=== PATIENT | female | born 1945 | race Caucasian/White ===

== ENCOUNTER 2017-08-20 13:59 | Emergency (ER) | payer OTHER ==
--- NOTE | 2017-08-20 15:32 | EKG ---
Test Date: 2017-08-20 Test Time: 15:22:04 Inside Sales Representative: INDIO MEASUREMENT RESULTS: Intervals: Rate: 67 [place]: 172 QRSD: 76 QT: 418 QTc: 441 [place]: P: 86 [place]: 172 QRS: 33 T: 48 INTERPRETIVE STATEMENTS: Normal sinus rhythm Normal ECG Compared to ECG 04/30/2017 07:00:58 Ventricular premature complex(es) no longer present Electronically Signed On 08-20-17 15:31:05 CDT by Ran Torres
[2017-08-20] MEDS ORDERED: ONDANSETRON 4 MG/2 ML VIAL ONE (16:06)
[2017-08-20 16:32] LABS: Urine Blood NEGATIVE (NEG); Urine Glucose NEGATIVE (NEG); Urine Protein NEGATIVE (NEG); Urine pH 5.5 (5.0-7.0)
[2017-08-20] MEDS ORDERED: D50W 25 GM/50 ML SYRINGE IV ONE (16:40)
[2017-08-20 16:58] LABS: Absolute Lymphocytes (CBC) 4.1 K/uL (0.7-4.9); Absolute Monocytes 0.7 K/uL (0.1-1.3); Absolute Neutrophil 5.9 K/uL (1.8-8.0); Basophils % 0.9 % (0-1.3); Eosinophils % 1.2 % (0-4.4); Hematocrit 40.6 % (36.0-45.0); Lymphocytes % 37.6 % (15.3-44.8); MCH 27.5 pg (27.0-35.0); MCV 85.4 fL (80-100); MPV 8.9 fL (7.6-11.3); Monocytes % 6.1 % (3.3-12.3); RBC Red Blood Cell Count 4.76 M/uL (3.86-4.86)
[2017-08-20 17:06] LABS: AST/SGOT 18 U/L (15-37); BUN Blood Urea Nitrogen 11 mg/dL (7-18); Bicarbonate 30 mmol/L (21-32); Glucose Level 76 mg/dL (74-106); Potassium 3.9 mmol/L (3.5-5.1); Sodium Level 141 mmol/L (136-145)
[2017-08-20 17:07] LABS: Urine Bacteria >50 /HPF (<20); Urine Culture Reflex Order NOT NEEDED; Urine RBC <5 /HPF (NONE SEEN)
[2017-08-20 17:07] LABS: ALT/SGPT 26 U/L (12-78); Albumin 4.3 g/dL (3.4-5.0); Alkaline Phosphatase 134 U/L (45-117); Bilirubin Direct < 0.1 mg/dL (0-0.2); Bilirubin Total 0.4 mg/dL (0.2-1.0); Lipase 158 U/L (73-393); Protein, Total 8.5 g/dL (6.4-8.2)
[2017-08-20] MEDS ORDERED: HYDROCODONE/APAP 10/325 TAB ONE (17:57)
[2017-08-20] MEDS ORDERED: PHENAZOPYRIDINE 100MG TAB PO ONE (17:57)
[2017-08-20] MEDS ORDERED: CEFTRIAXONE/SWI 1gm 1 GM/10 ML SYR ONE (17:57)
--- NOTE | 2017-08-20 18:35 | RAD REPORT ---
EXAM DESCRIPTION: CT - Abdomen Pelvis Wo Contrast - 08/20/2017 6:05 pm CLINICAL HISTORY: Abdominal pain with vomiting for several weeks. Dysuria COMPARISON: 2014 TECHNIQUE: Computed axial tomography of the abdomen and pelvis was obtained. IV was not requested. O ral contrast was given. Coronal reconstructions performed. All CT scans are performed using dose optimization technique as appropriate and may include automated exposure control or mA/KV adjustment according to patient size. FINDINGS: The evaluation of solid organs and vessels is limited secondary to the lack of contrast a dministration. Small hepatic cysts are unchanged. Spleen, pancreas, adrenals and kidneys appear grossly normal. A small hiatal hernia is present. A hysterectomy has been performed. There is no evidence of diverticulitis. Old right pubic bone fracture is present IMPRESSION: No acute abnormality is displayed.
--- NOTE | 2017-08-20 18:38 | ER ---
Nurse's Notes [facility] Name: Kiley Ortega Age: 72 yrs Sex: Female : 1945 Arrival Date: 08/20/2017 Time: 14:03 Bed 7 Private MD: Shivani Anguiano F Diagnosis: Urinary tract infection, site not specified Presentation: 08/20 14:14 Presenting complaint: Patient states: my bladder is hurting for couple of weeks, hj reports fever and chills; reports nausea and vomiting; pain is 10/10; reports burning urination;. Transition of care: patient was not received from another setting of care. Onset of symptoms was August 20, 2017. Risk Assessment: Do you want to hurt yourself or someone else? Patient reports no desire to harm self or others. Initial Sepsis Screen: Does the patient meet any 2 criteria? No. Patient's initial sepsis screen is negative. Does the patient have a suspected source of infection? No. Patient's initial sepsis screen is negative. Care prior to arrival: None. 14:14 Method Of Arrival: Ambulatory 14:14 Acuity: SHELLEY 3 hj Triage Assessment: 14:18 General: Appears in no apparent distress. uncomfortable, Behavior is calm, cooperative, hj appropriate for age. Pain: Complains of pain in groin and suprapubic area. GI: Reports nausea, vomiting. Historical: - Allergies: 14:17 Iodinated Contrast Media - IV Dye; hj 14:17 Tegretol; hj - Home Meds: 14:17 amlodipine 5 mg tab 1 tab once daily for Hypertension [Active]; aspirin 81 mg Oral TbEC hj 1 tab once daily [Active]; fluxetine 40 mg once daily [Active]; Insulin: Humalog Sub-Q [Active]; losartan 100 mg Oral tab 1 tab once daily for Hypertension [Active]; Lyrica 300mg Oral 1 cap 2 times per day for Diabetic Peripheral Neuropathy [Active]; metformin 1,000 mg Oral tab 1 tab 2 times per day for Type 2 Diabetes Mellitus [Active]; omeprazole 40 mg Oral cpDR 1 cap once daily for Gastroesophageal reflux [Active]; Glimepiride Oral [Active]; Januvia oral oral [Active]; - PMHx: 14:17 COPD; Diabetes - NIDDM; Hypertension; TIA; hj - PSHx: 14:17 Hysterectomy; Lumpectomy; hj - Immunization history:: Adult Immunizations up to date. - Social history:: Smoking status: Patient/guardian denies using tobacco, Patient/guardian denies using alcohol. - Ebola Screening: : Patient negative for fever greater than or equal to 101.5 degrees Fahrenheit, and additional compatible Ebola Virus Disease symptoms Patient denies exposure to infectious person Patient denies travel to an Ebola-affected area in the 21 days before illness onset. - Family history:: not pertinent. - Hospitalizations: : No recent hospitalization is reported. Screenin:18 Abuse screen: Denies threats or abuse. Denies injuries from another. Nutritional hj screening: No deficits noted. Tuberculosis screening: No symptoms or risk factors identified. Fall Risk None identified. Assessment: 14:18 GI: Bowel sounds present X 4 quads. Abd is soft and non tender. hj 15:00 General: Appears uncomfortable, Behavior is calm, cooperative. Pain: Complains of pain aa5 in suprapubic area Pain does not radiate. Pain currently is 10 out of 10 on a pain scale. Quality of pain is described as pressure, sharp, Pain began 2 weeks ago Is continuous. Neuro: Level of Consciousness is awake, alert, obeys commands, Oriented to person, place, time, situation. Cardiovascular: Heart tones S1 S2 present Rhythm is regular. Respiratory: Airway is patent Respiratory effort is even, unlabored, Respiratory pattern is regular, symmetrical. GI: Abdomen is round non-distended, Bowel sounds present X 4 quads. Abd is soft X 4 quads Abdomen is tender to palpation in suprapubic area Reports nausea, vomiting, since yesterday Patient currently denies diarrhea. : Reports burning with urination, since 2 weeks ago. EENT: No signs and/or symptoms were reported regarding the EENT system. Derm: Skin is pink, warm \T\ dry. Musculoskeletal: Range of motion: intact in all extremities. 16:30 Reassessment: Pt completed CT oral contrast . aa5 16:30 Reassessment: Patient and/or family updated on plan of care and expected duration. Pain aa5 level reassessed. Patient is alert, oriented x 3, equal unlabored respirations, skin warm/dry/pink. Pain: Pain currently is 10 out of 10 on a pain scale. 17:56 Reassessment: Patient and/or family updated on plan of care and expected duration. Pain aa5 level reassessed. Patient is alert, oriented x 3, equal unlabored respirations, skin warm/dry/pink. Reassessment: Pt to CT scan via stretcher . Pain: Pain currently is 10 out of 10 on a pain scale. 18:57 Reassessment: Patient is alert, oriented x 3, equal unlabored respirations, skin aa5 warm/dry/pink. Pain: Pain currently is 8 out of 10 on a pain scale. 19:11 Reassessment: Patient appears in no apparent distress at this time. Patient and/or tl2 family updated on plan of care and expected duration. Pain level reassessed. Patient is alert, oriented x 3, equal unlabored respirations, skin warm/dry/pink. Pt observed after shot time. Pt verbalized understanding of discharge instructions, need for follow up and prescription usage. Vital Signs: 14:18 BP 142 / 69; Pulse 78; Resp 18; Temp 97.7(O); Pulse Ox 95% on R/A; Weight 84.82 kg; hj Height 5 ft. 2 in. (157.48 cm); Pain 10/10; 16:00 BP 159 / 78; Pulse 72; Resp 18 S; Pulse Ox 99% on R/A; aa5 17:45 BP 145 / 64; Pulse 65; Resp 16 S; Pulse Ox 97% on R/A; aa5 18:50 BP 155 / 65; Pulse 66; Resp 16 S; Pulse Ox 98% on R/A; aa5 19:11 BP 164 / 83; Pulse 82; Resp 18; Pulse Ox 94% on R/A; tl2 14:18 Body Mass Index 34.20 (84.82 kg, 157.48 cm) ED Course: 14:03 Patient arrived in ED. jb7 14:03 Shivani Anguiano MD is Private Physician. jb7 14:16 Triage completed. hj 14:18 Arm band placed on left wrist. hj 14:18 Patient has correct armband on for positive identification. Bed in low position. Call light in reach. Side rails up X 1. Adult w/ patient. 14:55 Isael Mondragon MD is Attending Physician. rn 14:59 Hortensia Diaz RN is Primary Nurse. aa5 15:15 Missed attempt(s): 22 gauge in left forearm. Bleeding controlled, band aid applied, aa5 catheter tip intact. 15:17 Missed attempt(s): 20 gauge in left forearm. Bleeding controlled, band aid applied, aa5 catheter tip intact. 15:50 EKG done, by technical operations specialist. reviewed by Isael Mondragon MD. sm3 16:11 Missed attempt(s): 22 gauge in right forearm. Bleeding controlled, band aid applied, ss catheter tip intact. 16:30 Initial lab(s) drawn, by ED staff, sent to lab. Inserted saline lock: 20 gauge in right aa5 antecubital area, using aseptic technique. IV inserted by . 17:[address] via stretcher. vm2 18:05 Abdomen In Process Unspecified. EDMS 18:05 CT completed. Patient tolerated procedure well. Patient moved back from CT. vr 18:37 Shivani Anguiano MD is Referral Physician. rn 18:50 IV discontinued, intact, bleeding controlled, Pressure dressing applied, Swelling noted aa5 to site, pt c/o pain to site. 19:00 Report given to George Farley, YUNIOR and Cami Ruiz RN. aa5 19:11 No provider procedures requiring assistance completed. tl2 Administered Medications: 16:30 Drug: D50W 50 ml Route: IVP; Site: right antecubital; aa5 17:56 Follow up: Response: No adverse reaction aa5 16:35 Drug: Zofran 4 mg Route: IVP; Site: right antecubital; aa5 16:45 Follow up: Response: No adverse reaction; Nausea is decreased aa5 17:56 Drug: Pyridium 100 mg Route: PO; aa5 18:57 Follow up: Response: No adverse reaction aa5 17:56 Drug: Adair 10 mg-325 mg 1 tabs Route: PO; aa5 18:57 Follow up: Response: No adverse reaction aa5 18:57 Drug: Rocephin (cefTRIAXone) 1 grams Route: IM; Site: right gluteus; aa5 19:13 Follow up: Response: No adverse reaction tl2 18:57 Drug: Zofran 4 mg Route: PO; aa5 19:13 Follow up: Response: No adverse reaction tl2 18:58 Not Given (Changed route due to IV infiltration): Rocephin - (cefTRIAXone) 1 grams IVPB aa5 once over 30 mins; (mix in 50 mL NS) Point of Care Testing: Blood Glucose: 16:10 Blood Glucose: 66 mg/dL; ss 17:41 Blood Glucose: 172 mg/dL; jb1 Ranges: Outcome: 18:37 Discharge ordered by . rn 19:11 Discharged to home via wheelchair, with family. tl2 19:11 Condition: stable 19:11 Discharge instructions given to patient, family, Instructed on discharge instructions, follow up and referral plans. medication usage, Demonstrated understanding of instructions, follow-up care, medications, Prescriptions given X 3. 19:14 Patient left the ED. tl2 Addendum: 08/24/2017 08:42 Addendum: Culture Results: Positive urine culture. No further action required. Bacteria s s sensitive to prescribed antibiotic. Signatures: Dispatcher [employer] EDMS Alvarez Ruiz jb1 Isael Mondragon MD MD rn Calderon, YUNIOR Bazan RN aa5 Neena Collins RN RN ss Davis, Victoria Pk Carrera RN RN hj Knox, Taylor, RN RN tl2 Sang Huerta jb7 Sylvia Graham [facility] Rosi Saez 3 Corrections: (The following items were deleted from the chart) 08/20 14:21 14:18 Pulse 78bpm; Resp 18bpm; Pulse Ox 95% RA; Temp 97.7F Oral; 84.82 kg; Height 5 ft. hj 2 in.; BMI: 34.2; Pain 10/10; hj
--- NOTE | 2017-08-20 18:38 | EDPHYS ---
Physician Documentation [facility] Name: Kiley Ortega Age: 72 yrs Sex: Female : 1945 Arrival Date: 08/20/2017 Time: 14:03 Bed 7 Private MD: Shivani Anguiano F ED Physician Isael Mondragon HPI: 08/20 16:07 This 72 yrs old Female presents to ER via Ambulatory with complaints of rn Abdominal Pain. 16:07 The patient presents with abdominal pain in the lower abdomen. Onset: The rn symptoms/episode began/occurred 2 week(s) ago. The symptoms do not radiate. Associated signs and symptoms: Pertinent positives: dysuria, fever, nausea. The symptoms are described as achy. Modifying factors: The symptoms are alleviated by nothing, the symptoms are aggravated by nothing. Severity of pain: At its worst the pain was moderate in the emergency department the pain is unchanged. The patient has not experienced similar symptoms in the past. The patient has been recently seen by a physician:. Reports lower abd pain with dysuria, fever, chills, seen by pcp but pain not addressed, feels worse. . Historical: - Allergies: 14:17 Iodinated Contrast Media - IV Dye; hj 14:17 Tegretol; hj - Home Meds: 14:17 amlodipine 5 mg tab 1 tab once daily for Hypertension [Active]; aspirin 81 mg Oral TbEC hj 1 tab once daily [Active]; fluxetine 40 mg once daily [Active]; Insulin: Humalog Sub-Q [Active]; losartan 100 mg Oral tab 1 tab once daily for Hypertension [Active]; Lyrica 300mg Oral 1 cap 2 times per day for Diabetic Peripheral Neuropathy [Active]; metformin 1,000 mg Oral tab 1 tab 2 times per day for Type 2 Diabetes Mellitus [Active]; omeprazole 40 mg Oral cpDR 1 cap once daily for Gastroesophageal reflux [Active]; Glimepiride Oral [Active]; Januvia oral oral [Active]; - PMHx: 14:17 COPD; Diabetes - NIDDM; Hypertension; TIA; hj - PSHx: 14:17 Hysterectomy; Lumpectomy; hj - Immunization history:: Adult Immunizations up to date. - Social history:: Smoking status: Patient/guardian denies using tobacco, Patient/guardian denies using alcohol. - Ebola Screening: : Patient negative for fever greater than or equal to 101.5 degrees Fahrenheit, and additional compatible Ebola Virus Disease symptoms Patient denies exposure to infectious person Patient denies travel to an Ebola-affected area in the 21 days before illness onset. - Family history:: not pertinent. - Hospitalizations: : No recent hospitalization is reported. 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 Head/Face: Normocephalic, atraumatic. Eyes: Pupils equal round and reactive to light, extra-ocular motions intact. Lids and lashes normal. Conjunctiva and sclera are non-icteric and not injected. Cornea within normal limits. Periorbital areas with no swelling, redness, or edema. Cardiovascular: Regular rate and rhythm with a normal S1 and S2. No gallops, murmurs, or rubs. Normal PMI, no JVD. No pulse deficits. Respiratory: Lungs have equal breath sounds bilaterally, clear to auscultation and percussion. No rales, rhonchi or wheezes noted. No increased work of breathing, no retractions or nasal flaring. Abdomen/GI: soft, mild suprapubic tenderness, no rebound/guarding, no masses MS/ Extremity: Pulses equal, no cyanosis. Neurovascular intact. Full, normal range of motion. Equal circumference. Neuro: Awake and alert, non-focal exam Vital Signs: 14:18 BP 142 / 69; Pulse 78; Resp 18; Temp 97.7(O); Pulse Ox 95% on R/A; Weight 84.82 kg; Height 5 ft. 2 in. (157.48 cm); Pain 10/10; 16:00 BP 159 / 78; Pulse 72; Resp 18 S; Pulse Ox 99% on R/A; aa5 17:45 BP 145 / 64; Pulse 65; Resp 16 S; Pulse Ox 97% on R/A; aa5 18:50 BP 155 / 65; Pulse 66; Resp 16 S; Pulse Ox 98% on R/A; aa5 19:11 BP 164 / 83; Pulse 82; Resp 18; Pulse Ox 94% on R/A; tl2 14:18 Body Mass Index 34.20 (84.82 kg, 157.48 cm) MDM: 14:55 Patient medically screened. rn 18:36 Differential diagnosis: non-specific abd pain, Ureterolithiasis, urinary tract rn infection. Data reviewed: vital signs, nurses notes, lab test result(s), radiologic studies, CT scan, and as a result, I will discharge patient. Counseling: I had a detailed discussion with the patient and/or guardian regarding: the historical points, exam findings, and any diagnostic results supporting the discharge/admit diagnosis, lab results, radiology results, the need for outpatient follow up, to return to the emergency department if symptoms worsen or persist or if there are any questions or concerns that arise at home. Response to treatment: the patient's symptoms have mildly improved after treatment, and as a result, I will discharge patient. Special discussion: I discussed with the patient/guardian in detail that at this point there is no indication for admission to the hospital. It is understood, however, that if the symptoms persist or worsen the patient needs to return immediately for re-evaluation. 08/20 14:28 Order name: Urine Microscopic Only; Complete Time: 17:18 hj 08/20 15:04 Order name: Basic Metabolic Panel; Complete Time: 17:18 rn 08/20 15:04 Order name: CBC with Diff; Complete Time: 17:18 rn 08/20 15:04 Order name: Hepatic Function; Complete Time: 17:18 rn 08/20 15:04 Order name: Lipase; Complete Time: 17:18 rn 08/20 15:04 Order name: Urine Culture rn 08/20 15:04 Order name: Procalcitonin; Complete Time: 17:18 rn 08/20 16:21 Order name: Abdomen ; Complete Time: 18:36 EDMS 08/20 16:24 Order name: Urine Dipstick--Ancillary (enter results); Complete Time: 16:57 ag 08/20 14:28 Order name: Urine Dipstick-Ancillary (obtain specimen); Complete Time: 16:42 hj 08/20 15:04 Order name: IV Saline Lock; Complete Time: 16:42 rn 08/20 15:04 Order name: Labs collected and sent; Complete Time: 16:42 rn 08/20 15:04 Order name: EKG; Complete Time: 15:06 rn 08/20 15:04 Order name: EKG - Nurse/Tech; Complete Time: 15:25 rn Administered Medications: 16:30 Drug: D50W 50 ml Route: IVP; Site: right antecubital; aa5 17:56 Follow up: Response: No adverse reaction aa5 16:35 Drug: Zofran 4 mg Route: IVP; Site: right antecubital; aa5 16:45 Follow up: Response: No adverse reaction; Nausea is decreased aa5 17:56 Drug: Pyridium 100 mg Route: PO; aa5 18:57 Follow up: Response: No adverse reaction aa5 17:56 Drug: [place] 10 mg-325 mg 1 tabs Route: PO; aa5 18:57 Follow up: Response: No adverse reaction aa5 18:57 Drug: Rocephin (cefTRIAXone) 1 grams Route: IM; Site: right gluteus; aa5 19:13 Follow up: Response: No adverse reaction tl2 18:57 Drug: Zofran 4 mg Route: PO; aa5 19:13 Follow up: Response: No adverse reaction tl2 18:58 Not Given (Changed route due to IV infiltration): Rocephin - (cefTRIAXone) 1 grams IVPB aa5 once over 30 mins; (mix in 50 mL NS) Point of Care Testing: Blood Glucose: 16:10 Blood Glucose: 66 mg/dL; ss 17:41 Blood Glucose: 172 mg/dL; jb1 Ranges: Critical Glucose Levels:Adult <50 mg/dl or >400 mg/dl <40 mg/dl or >180 mg/dl Disposition: 08/20/17 18:37 Discharged to Home. Impression: Urinary tract infection, site not specified. - Condition is Stable. - Discharge Instructions: Urinary Tract Infection. - Prescriptions for Pyridium 200 mg Oral Tablet - take 1 tablet by ORAL route every 8 hours for 3 days; 9 tablet. cefpodoxime 200 mg Oral Tablet - take 1 tablet by ORAL route every 12 hours with food; 20 tablet. Zofran ODT 4 mg Oral tablet,disintegrating - place 1 tablet by TRANSLINGUAL route every 8 hours As needed; 20 tablet. - Medication Reconciliation Form, Thank You Letter, Antibiotic Education, Prescription Opioid Use form. - Follow up: Shivani Anguiano MD; When: 2 - 3 days; Reason: Recheck today's complaints, Re-evaluation by your physician. - Problem is new. - Symptoms have improved. Signatures: Dispatcher [employer] [facility] Isael Mondragon MD MD rn Calderon, Audri, RN RN aa5 Pk Carrera RN RN Cami Ruiz, RN RN tl2 Corrections: (The following items were deleted from the chart) 16:21 15:06 Abdomen Pelvis W [id number] ordered. [facility] 19:14 18:37 08/20/2017 18:37 Discharged to Home. Impression: Urinary tract infection, site tl2 not specified. Condition is Stable. Forms are Medication Reconciliation Form, Thank You Letter, Antibiotic Education, Prescription Opioid Use. Follow up: Shivani Anguiano; When: 2 - 3 days; Reason: Recheck today's complaints, Re-evaluation by your physician. Problem is new. Symptoms have improved. rn
[2017-08-20] MEDS ORDERED: LIDOCAINE 1% MPF 5 ML VIAL ONE (18:53)
[2017-08-20] MEDS ORDERED: CEFTRIAXONE 1000 MG/VIAL ONE (18:53)
[2017-08-20] MEDS ORDERED: ONDANSETRON 4 MG (ODT) TAB ONE (18:54)
[2017-08-20 19:18] VITALS: TEMP 97.7
[2017-08-20 19:22] VITALS: BP 164/83; O2SAT 94
== END 2017-08-20 19:14 | disposition home or self-care (01) ==
LOC: ER 13:59
DX: N39.0 Urinary tract infection, site not specified (principal); I10 Essential (primary) hypertension; E11.9 Type 2 diabetes mellitus without complications; J44.9 Chronic obstructive pulmonary disease, unspecified; Z79.82 Long term (current) use of aspirin; Z79.4 Long term (current) use of insulin
CPT/HCPCS: 36415; 74176; 80048; 80076; 83690; 84145; 85025; 87086; 87088; 93005; J0696; J2405; 81003; 81015; 82962; 87077; 87186; 96372; 96374; 96375; 99284

== ENCOUNTER 2017-09-07 17:05 | Emergency (ER) | payer OTHER ==
[2017-09-07] MEDS ORDERED: ONDANSETRON 4 MG (ODT) TAB ONE (17:32)
[2017-09-07] MEDS ORDERED: TETANUS & DIPHTHERIA TOX,ADULT 0.5 ML VIAL ONE (17:37)
--- NOTE | 2017-09-07 18:15 | RAD REPORT ---
EXAM DESCRIPTION: CT - Head C Spine Cap Wo Con - 09/07/2017 5:56 pm CLINICAL HISTORY: Fall, head, neck, chest and abdomen pain COMPARISON: None. TECHNIQUE: Axial [address] head images were obtained. Axial [address] cervical spine images were obtain ed with sagittal and coronal reconstruction images reviewed. Axial 5 mm images of the chest, abdomen and pelvis were obtained. All CT scans are performed using dose optimization technique as appropriate and may include automated exposure control or mA/KV adjustment according to patient size. FINDINGS: No intracranial hemorrhage, mass or edema. No midline shift or abnormal fluid collection. Mastoid air cells and paranasal sinuses are clear. No skull fracture. Mild atrophy chronic ischemic change. Cervical bodies are normal in height. There is very minimal anterior subluxation C4 on C5 and C5 on C 6. C6-7 disc space narrowing. Uncovertebral joint and facet hypertrophic degenerative changes cause m ultilevel foraminal stenosis. Canal is borderline stenotic at C6-7. No fracture or acute bone finding . No prevertebral soft tissue thickening or paraspinal mass.Central canal detail is inherently limite d on CT imaging. CT chest shows no pneumothorax, pulmonary contusion or pleural fluid collection. No mediastinal hem atoma and the aorta and pulmonary arteries are unremarkable. No chest will mass or abnormal axillary finding. No displaced rib fracture or other significant bony finding. CT abdomen and pelvis show no injury to solid abdominal viscera. Gallbladder and biliary tree are unr emarkable. No bowel injury or significant finding. No free air, free fluid or abnormal stranding. No mass or bulky lymphadenopathy. A very small incidental umbilical hernia is present. No urinary bladd er abnormality. Old trauma and degenerative bony changes are present most pronounced in the lower lumbar spine. No co mpression fracture or acute bone process. IMPRESSION: No hemorrhage, edema or acute CT Head finding. Prominent cervical spine degenerative change with no acute finding. Central canal detail is inherentl y limited. No acute or traumatic injury to the chest. No acute or traumatic injury to the abdomen or pelvis.
--- NOTE | 2017-09-07 18:47 | RAD REPORT ---
EXAM DESCRIPTION: RAD - Hand Left 3 View - 09/07/2017 6:22 pm CLINICAL HISTORY: Fall, hand and wrist pain COMPARISON: None. FINDINGS: No fracture, dislocation or periosteal reaction noted. No acute or destructive bone proces s identifiable. Mild IP joint space narrowing and spurring. No erosive component. Mild degenerative c hange at the first carpal - metacarpal articulation. No air or foreign body. IMPRESSION: Degenerative change without fracture. No foreign body.
--- NOTE | 2017-09-07 18:50 | EDPHYS ---
Physician Documentation [facility] Name: Kiley Ortega Age: 72 yrs Sex: Female : 1945 Arrival Date: 09/07/2017 Time: 17:06 Bed 30 Private MD: Shivani Anguiano F ED Physician Vinh Gee HPI: 09/07 18:00 This 72 yrs old Female presents to ER via Wheelchair with complaints of Fall pm1 Injury. 18:00 Details of fall: The patient fell from an upright position, while walking. Onset: The pm1 symptoms/episode began/occurred just prior to arrival. Associated injuries: The patient sustained injury to the head, abrasion, contusion, left hand, pain, right wrist, abrasion, right and left lower ribs. 18:00 Patient was walking out her door and there is a small step down from the concrete in pm1 front of the door. Patient lost her balance when she stepped down and feel on her right side with her right arm tucked against her. Patient presenting with pain, contusion, and abrasion to right side of head, abrasion to right wrist and left hand pain. No LOC. No vomiting. Patient able to walk without any difficulty after falling. Historical: - Allergies: 17:14 Iodinated Contrast Media - IV Dye; aj 17:14 Tegretol; aj - Home Meds: 17:14 amlodipine 5 mg tab 1 tab once daily for Hypertension [Active]; aspirin 81 mg Oral TbEC aj 1 tab once daily [Active]; fluxetine 40 mg once daily [Active]; Glimepiride Oral [Active]; Insulin: Humalog Sub-Q [Active]; Januvia Oral [Active]; losartan 100 mg Oral tab 1 tab once daily for Hypertension [Active]; metformin 1,000 mg Oral tab 1 tab 2 times per day for Type 2 Diabetes Mellitus [Active]; Lyrica 300mg Oral 1 cap 2 times per day for Diabetic Peripheral Neuropathy [Active]; omeprazole 40 mg Oral cpDR 1 cap once daily for Gastroesophageal reflux [Active]; - PMHx: 17:14 COPD; Diabetes - NIDDM; Hypertension; TIA; aj - PSHx: 17:14 Hysterectomy; Lumpectomy; aj - Immunization history: Last tetanus immunization: unknown. - Social history:: Smoking status: Patient/guardian denies using tobacco. - Ebola Screening: : Patient negative for fever greater than or equal to 101.5 degrees Fahrenheit, and additional compatible Ebola Virus Disease symptoms Patient denies exposure to infectious person Patient denies travel to an Ebola-affected area in the 21 days before illness onset No symptoms or risks identified at this time. ROS: 18:00 Constitutional: Negative for fever, chills, and weight loss, Eyes: Negative for injury, pm1 pain, redness, and discharge, ENT: Negative for injury, pain, and discharge, Neck: Negative for injury, pain, and swelling, Cardiovascular: Negative for chest pain, palpitations, and edema, Respiratory: Negative for shortness of breath, cough, wheezing, and pleuritic chest pain, Abdomen/GI: Negative for abdominal pain, nausea, vomiting, diarrhea, and constipation, Back: Negative for injury and pain. 18:00 MS/extremity: Positive for pain, of the left hand. 18:00 Skin: Positive for abrasion(s), of the right wrist and right restorationism. 18:00 Neuro: Positive for headache, Negative for altered mental status, dizziness, gait disturbance, loss of consciousness, numbness, syncope, near syncope, tingling, weakness. Exam: 09/08 01:31 Constitutional: This is a well developed, well nourished patient who is awake, alert, pm1 and in no acute distress. Eyes: Pupils equal round and reactive to light, extra-ocular motions intact. Lids and lashes normal. Conjunctiva and sclera are non-icteric and not injected. Cornea within normal limits. Periorbital areas with no swelling, redness, or edema. ENT: Nares patent. No nasal discharge, no septal abnormalities noted. Tympanic membranes are normal and external auditory canals are clear. Oropharynx with no redness, swelling, or masses, exudates, or evidence of obstruction, uvula midline. Mucous membranes moist. Neck: Trachea midline, no thyromegaly or masses palpated, and no cervical lymphadenopathy. Supple, full range of motion without nuchal rigidity, or vertebral point tenderness. No Meningismus. Chest/axilla: Normal chest wall appearance and motion. Nontender with no deformity. No lesions are appreciated. Cardiovascular: Regular rate and rhythm with a normal S1 and S2. No gallops, murmurs, or rubs. Normal PMI, no JVD. No pulse deficits. Respiratory: Lungs have equal breath sounds bilaterally, clear to auscultation and percussion. No rales, rhonchi or wheezes noted. No increased work of breathing, no retractions or nasal flaring. Abdomen/GI: Soft, non-tender, with normal bowel sounds. No distension or tympany. No guarding or rebound. No evidence of tenderness throughout. Back: No spinal tenderness. No costovertebral tenderness. Full range of motion. Head/face: Exam is negative for guy signs, deformity, raccoon eyes, Noted is no obvious of injury or deformity except abrasion(s), that are mild, of the right restorationism, contusion, that is superficial, of the right restorationism. Musculoskeletal/extremity: Extremities: grossly normal except: noted in the medial aspect of left hand: tenderness, ROM: intact in all extremities, Circulation is intact in all extremities. Sensation intact. Skin: injury, abrasion(s), small abrasion noted, of the right wrist and right restorationism, laceration(s), are not present. Vital Signs: 09/07 17:10 BP 144 / 64; Pulse 106; Resp 20; Temp 98.4; Pulse Ox 93% on R/A; Weight 84.82 kg; aj Height 5 ft. 2 in. (157.48 cm); 17:41 BP 145 / 61; Pulse 98; Pulse Ox 93% on R/A; rv 18:22 BP 121 / 60; Pulse 88; Pulse Ox 92% on R/A; rv 17:10 Body Mass Index 34.20 (84.82 kg, 157.48 cm) aj Lj Coma Score: 17:10 Eye Response: spontaneous(4). Verbal Response: oriented(5). Motor Response: obeys aj commands(6). Total: 15. Trauma Score (Adult): 17:10 Eye Response: spontaneous(1); Verbal Response: oriented(1); Motor Response: obeys aj commands(2); Systolic BP: > 89 mm Hg(4); Respiratory Rate: 10 to 29 per min(4); Lj Score: 15; Trauma Score: 12 MDM: 17:17 Patient medically screened. pm1 18:47 Data reviewed: vital signs. Counseling: I had a detailed discussion with the patient pm1 and/or guardian regarding: the historical points, exam findings, and any diagnostic results supporting the discharge/admit diagnosis, radiology results, the need for outpatient follow up, to return to the emergency department if symptoms worsen or persist or if there are any questions or concerns that arise at home. 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 Exp: rv 10/30/2019. Lot #: [id number]. } Route: IM; Site: right deltoid; 19:01 Follow up: Response: No adverse reaction rv 19: Drug: [place] 5 mg-325 mg 1 tabs Route: PO; rv 19:01 Follow up: Response: Medication administered at discharge. rv Disposition: 09/07/17 18:49 Discharged to Home. Impression: Contusion of left hand, Abrasion of unspecified part of head, Abrasion of right wrist, Other slipping, tripping and stumbling and falls, Rib contusion, Superficial injury of head. - Condition is Stable. - Discharge Instructions: Abrasion, Rib Contusion, Hand Contusion, Head Injury, Adult. - Prescriptions for Tramadol 50 mg Oral Tablet - take 1 tablet by ORAL route every 8 hours as needed; 12 tablet. - Medication Reconciliation Form, Thank You Letter, Prescription Opioid Use form. - Follow up: Emergency Department; When: As needed; Reason: Worsening of condition. Follow up: Shivani Anguiano MD; When: 2 - 3 days; Reason: Recheck today's complaints, Continuance of care, Re-evaluation by your physician. - Problem is new. - Symptoms have improved. Addendum: 09/11/2017 08:02 Co-signature as Attending Physician, Vinh Gee MD I agree with the assessment and k dr plan of care. Signatures: Dispatcher [employer] EDJeannette Stone RN RN aj Rittger, Kevin, MD MD kdr Marinas, Patrick, NP POWDER COAT PAINTER pm1 Matt Gtz, RN RN rv Corrections: (The following items were deleted from the chart) 09/07 18:50 18:49 09/07/2017 18:49 Discharged to Home. Impression: Contusion of left hand; Abrasion pm1 of unspecified part of head; Abrasion of right wrist; Other slipping, tripping and stumbling and falls. Condition is Stable. Forms are Medication Reconciliation Form, Thank You Letter, Antibiotic Education, Prescription Opioid Use. Follow up: Emergency Department; When: As needed; Reason: Worsening of condition. Follow up: Shivani Anguiano; When: 2 - 3 days; Reason: Recheck today's complaints, Continuance of care, Re-evaluation by your physician. Problem is new. Symptoms have improved. pm1 18:51 18:50 09/07/2017 18:49 Discharged to Home. Impression: Contusion of left hand; Abrasion pm1 of unspecified part of head; Abrasion of right wrist; Other slipping, tripping and stumbling and falls; Rib contusion. Condition is Stable. Forms are Medication Reconciliation Form, Thank You Letter, Antibiotic Education, Prescription Opioid Use. Follow up: Emergency Department; When: As needed; Reason: Worsening of condition. Follow up: Shivani Anguiano; When: 2 - 3 days; Reason: Recheck today's complaints, Continuance of care, Re-evaluation by your physician. Problem is new. Symptoms have improved. pm1 19:02 18:51 09/07/2017 18:49 Discharged to Home. Impression: Contusion of left hand; Abrasion rv of unspecified part of head; Abrasion of right wrist; Other slipping, tripping and stumbling and falls; Rib contusion; Superficial injury of head. Condition is Stable. Discharge Instructions: Abrasion, Rib Contusion, Hand Contusion, Head Injury, Adult. Prescriptions for Tramadol 50 mg Oral Tablet - take 1 tablet by ORAL route every 8 hours as needed; 12 tablet. and Forms are Medication Reconciliation Form, Thank You Letter, Prescription Opioid Use. Follow up: Emergency Department; When: As needed; Reason: Worsening of condition. Follow up: Shivani Anguiano; When: 2 - 3 days; Reason: Recheck today's complaints, Continuance of care, Re-evaluation by your physician. Problem is new. Symptoms have improved. pm1
--- NOTE | 2017-09-07 18:50 | ER ---
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 Abrasion to right aj muslim, laceration to right posterior wrist. Patient also reports right flank pain. Care prior to arrival: None. Mechanism of Injury: Fall from standing position. Trauma event details: Injury occurred in the [facility], Injury occurred: at home. Injury occurred: September 07, 2017 Injury occurred at: 17:11. 17:10 Acuity: [place] 3 aj 17:10 Method Of Arrival: Wheelchair aj 17:39 Transition of care: patient was not received from another setting of care. Onset of rv symptoms. Risk Assessment: Do you want to hurt yourself or someone else? Patient reports no desire to harm self or others. 17:40 Initial Sepsis Screen: Does the patient meet any 2 criteria? No. Patient's initial rv sepsis screen is negative. Does the patient have a suspected source of infection? No. Patient's initial sepsis screen is negative. Trauma Activation: Not Applicable Physician: ED Physician; Name: ; Notified At: ; Arrived At: Physician: General Surgeon; Name: ; Notified At: ; Arrived At: Physician: Radiology; Name: ; Notified At: ; Arrived At: Physician: Respiratory; Name: ; Notified At: ; Arrived At: Physician: Lab; Name: ; Notified At: ; Arrived At: Historical: - Allergies: 17:14 Iodinated Contrast Media - IV Dye; aj 17:14 Tegretol; aj - Home Meds: 17:14 amlodipine 5 mg tab 1 tab once daily for Hypertension [Active]; aspirin 81 mg Oral TbEC aj 1 tab once daily [Active]; fluxetine 40 mg once daily [Active]; Glimepiride Oral [Active]; Insulin: Humalog Sub-Q [Active]; Januvia Oral [Active]; losartan 100 mg Oral tab 1 tab once daily for Hypertension [Active]; metformin 1,000 mg Oral tab 1 tab 2 times per day for Type 2 Diabetes Mellitus [Active]; Lyrica 300mg Oral 1 cap 2 times per day for Diabetic Peripheral Neuropathy [Active]; omeprazole 40 mg Oral cpDR 1 cap once daily for Gastroesophageal reflux [Active]; - PMHx: 17:14 COPD; Diabetes - NIDDM; Hypertension; TIA; aj - PSHx: 17:14 Hysterectomy; Lumpectomy; aj - Immunization history: Last tetanus immunization: unknown. - Social history:: Smoking status: Patient/guardian denies using tobacco. - Ebola Screening: : Patient negative for fever greater than or equal to 101.5 degrees Fahrenheit, and additional compatible Ebola Virus Disease symptoms Patient denies exposure to infectious person Patient denies travel to an Ebola-affected area in the 21 days before illness onset No symptoms or risks identified at this time. Screenin:38 Abuse screen: Denies threats or abuse. Denies injuries from another. Nutritional rv screening: No deficits noted. Tuberculosis screening: No symptoms or risk factors identified. Fall Risk Fall in past 12 months (25 points). Primary Survey: 17:10 A: Airway: patent. Breathing/Chest: Respiratory pattern: regular, Respiratory effort: aj spontaneous, unlabored. Circulation: Skin color: pink. Disability Alert. 17:39 Reassessment Breathing/Chest Respiratory pattern Regular. rv Assessment: 17:10 General: Appears in no apparent distress. comfortable, Behavior is calm, cooperative, aj appropriate for age. Pain: Complains of pain in right muslim and right wrist. Neuro: Level of Consciousness is awake, alert, obeys commands, Oriented to person, place, time, situation, Appropriate for age. Respiratory: Airway is patent Respiratory effort is even, unlabored, Respiratory pattern is regular, symmetrical. Derm: Skin is intact, is healthy with good turgor, Skin is pink, warm \T\ dry. normal. Injury Description: Abrasion sustained to right muslim Laceration sustained to right wrist. Vital Signs: 17:10 BP 144 / 64; Pulse 106; Resp 20; Temp 98.4; Pulse Ox 93% on R/A; Weight 84.82 kg; aj Height 5 ft. 2 in. (157.48 cm); 17:41 BP 145 / 61; Pulse 98; Pulse Ox 93% on R/A; rv 18:22 BP 121 / 60; Pulse 88; Pulse Ox 92% on R/A; rv 17:10 Body Mass Index 34.20 (84.82 kg, 157.48 cm) aj [place] Coma Score: 17:10 Eye Response: spontaneous(4). Verbal Response: oriented(5). Motor Response: obeys aj commands(6). Total: 15. Trauma Score (Adult): 17:10 Eye Response: spontaneous(1); Verbal Response: oriented(1); Motor Response: obeys aj commands(2); Systolic BP: > 89 mm Hg(4); Respiratory Rate: 10 to 29 per min(4); Lj Score: 15; Trauma Score: 12 ED Course: 17:06 Patient arrived in ED. as 17:06 Shivani Anguiano MD is Private Physician. as 17:11 Triage completed. aj 17:14 Arm band placed on right wrist. Patient placed in an exam room. aj 17:15 Abhishek Dimas NP is PHCP. pm1 17:15 Vinh Gee MD is Attending Physician. pm1 17:40 Patient has correct armband on for positive identification. Bed in low position. Call rv light in reach. Side rails up X 1. Adult w/ patient. Pulse ox on. NIBP on. 17:40 Patient maintains SpO2 saturation greater than 95% on room air. rv 17:40 Thermoregulation: warm blanket given to patient. rv 17:56 CT completed. Patient moved to CT via stretcher. Patient moved back from CT. kw1 17:57 CT Traumagram (Head C Spine CAP wo con) In Process Unspecified. EDMS 18:22 Hand Left 3 View XRAY In Process Unspecified. EDMS 18:48 Shivani Anguiano MD is Referral Physician. pm1 19:02 No provider procedures requiring assistance completed. Patient did not have IV access rv during this emergency room visit. 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 Exp: rv 10/30/2019. Lot #: [id number]. } Route: IM; Site: right deltoid; 19:01 Follow up: Response: No adverse reaction rv 19:01 Drug: [place] 5 mg-325 mg 1 tabs Route: PO; rv 19:01 Follow up: Response: Medication administered at discharge. rv Outcome: 17:40 Patient's length of stay was not longer than 2 hours. rv 18:49 Discharge ordered by MD. pm1 19:02 Discharged to home ambulatory. rv 19:02 Condition: good 19:02 Discharge instructions given to patient, Instructed on discharge instructions, follow up and referral plans. medication usage, wound care. 19:02 Patient left the ED. rv Signatures: Dispatcher [employer] EDMS Jeannette Boyer, RN RN Camille Freedman Patrick, TAXI PROPRIETOR TAXI PROPRIETOR pm1 Amarilis Green kw1 Matt Gtz, RN RN rv
[2017-09-07] MEDS ORDERED: HYDROCODONE/APAP 5/325 MG TAB ONE (19:04)
[2017-09-07 19:07] VITALS: TEMP 98.4
[2017-09-07 19:09] VITALS: BP 121/60; O2SAT 92
== END 2017-09-07 19:02 | disposition home or self-care (01) ==
LOC: ER 17:05
DX: S20.219A Contusion of unspecified front wall of thorax, initial encounter (principal); S60.222A Contusion of left hand, initial encounter; S00.91XA Abrasion of unspecified part of head, initial encounter; S60.811A Abrasion of right wrist, initial encounter; W01.0XXA Fall on same level from slipping, tripping and stumbling without subsequent striking against object, initial encounter; Y93.01 Activity, walking, marching and hiking; Y92.89 Other specified places as the place of occurrence of the external cause; Z23 Encounter for immunization; Z79.82 Long term (current) use of aspirin; Z79.4 Long term (current) use of insulin; I10 Essential (primary) hypertension; E11.9 Type 2 diabetes mellitus without complications; J44.9 Chronic obstructive pulmonary disease, unspecified
CPT/HCPCS: 70450; 71250; 72125; 82962; 90714; 99284

== ENCOUNTER 2018-03-17 18:53 | Inpatient (IN) | payer OTHER ==
--- NOTE | 2018-03-17 19:46 | RAD REPORT ---
EXAM DESCRIPTION: RAD - Chest Single View - 03/17/2018 7:31 pm CLINICAL HISTORY: SOB Chest pain. COMPARISON: Chest Single View dated 04/30/2017; Chest Single View dated 04/29/2017; Chest Single View dated 11/20/2015; Chest Pa And Lat (2 Views) dated 11/11/2015 FINDINGS: Portable technique limits examination quality. Mild interstitial pulmonary edema or interstitial pneumonitis/bronchitis suspected. No focal infiltra te typical of pneumonia present. The heart is normal in size. No displaced fractures.
[2018-03-17] MEDS ORDERED: NA CHLORIDE 0.9% 1,000 ML ONE ×2 (19:47→20:10)
[2018-03-17] MEDS ORDERED: ACETAMINOPHEN 500 MG TAB ONE (19:47)
[2018-03-17] MEDS ORDERED: CEFTRIAXONE/SWI 1gm 1 GM/10 ML SYR ONE (19:47)
[2018-03-17 19:58] LABS: Urine Bacteria >50 /HPF (<20); Urine Culture Reflex Order REFLEXED; Urine RBC NONE SEEN /HPF (NONE SEEN)
[2018-03-17 19:59] LABS: Urine Blood NEGATIVE (NEG); Urine Glucose 2+ (NEG); Urine Protein NEGATIVE (NEG); Urine pH 6.5 (5.0-7.0)
[2018-03-17 20:03] LABS: Hematocrit 35.5 % (36.0-45.0); Lymphocytes % 11.8 % (15.3-44.8); MPV 8.9 fL (7.6-11.3); Monocytes % 7.5 % (3.3-12.3); RBC Red Blood Cell Count 4.21 M/uL (3.86-4.86)
[2018-03-17 20:04] LABS: Absolute Lymphocytes (CBC) 0.8 K/uL (0.7-4.9); Absolute Monocytes 0.5 K/uL (0.1-1.3); Absolute Neutrophil 5.6 K/uL (1.8-8.0); Basophils % 0.4 % (0-1.3); Eosinophils % 0.9 % (0-4.4)
--- NOTE | 2018-03-17 20:07 | EDPHYS ---
Physician Documentation [facility] Name: Kiley Ortega Age: 72 yrs Sex: Female : 1945 Arrival Date: 03/17/2018 Time: 18:56 Bed 5 Private MD: ED Physician Eze Aguilera HPI: 03/17 19:38 This 72 yrs old Female presents to ER via EMS with complaints of Breathing ivan Difficulty, Fever. 19:38 The patient has shortness of breath at rest, with light activity. Onset: The ivan symptoms/episode began/occurred 3 day(s) ago. The patient's shortness of breath is aggravated by coughing, light activity. Associated signs and symptoms: The patient has no apparent associated signs or symptoms. Severity of symptoms: At their worst the symptoms were mild in the emergency department the symptoms are unchanged. The patient has experienced similar episodes in the past, a few times. Historical: - Allergies: 19:00 Iodinated Contrast Media - IV Dye; hb 19:00 Tegretol; hb - Home Meds: 20:57 amlodipine 5 mg tab 1 tab once daily for Hypertension [Active]; aspirin 81 mg Oral TbEC ed1 1 tab once daily [Active]; fluxetine 40 mg once daily [Active]; Glimepiride Oral [Active]; Insulin: Humalog Sub-Q [Active]; Januvia Oral [Active]; losartan 100 mg Oral tab 1 tab once daily for Hypertension [Active]; Lyrica 300mg Oral 1 cap 2 times per day for Diabetic Peripheral Neuropathy [Active]; metformin 1,000 mg Oral tab 1 tab 2 times per day for Type 2 Diabetes Mellitus [Active]; omeprazole 40 mg Oral cpDR 1 cap once daily for Gastroesophageal reflux [Active]; - PMHx: 19:00 Diabetes - NIDDM; Hypertension; COPD; TIA; hb - PSHx: 19:00 Hysterectomy; Lumpectomy; hb - Immunization history:: Adult Immunizations up to date. - Social history:: Smoking status: Patient/guardian denies using tobacco. - Ebola Screening: : No symptoms or risks identified at this time. - Family history:: not pertinent. ROS: 19:38 Constitutional: Negative for fever, chills, and weight loss, Eyes: Negative for injury, ivan pain, redness, and discharge, ENT: Negative for injury, pain, and discharge, Neck: Negative for injury, pain, and swelling, Abdomen/GI: Negative for abdominal pain, nausea, vomiting, diarrhea, and constipation, Back: Negative for injury and pain, : Negative for injury, bleeding, discharge, and swelling, MS/Extremity: Negative for injury and deformity, Skin: Negative for injury, rash, and discoloration, Neuro: Negative for headache, weakness, numbness, tingling, and seizure, Psych: Negative for depression, anxiety, suicide ideation, homicidal ideation, and hallucinations, Allergy/Immunology: Negative for hives, rash, and allergies, Endocrine: Negative for neck swelling, polydipsia, polyuria, polyphagia, and marked weight changes, Hematologic/Lymphatic: Negative for swollen nodes, abnormal bleeding, and unusual bruising. 19:38 Cardiovascular: Positive for chest pain. 19:38 Respiratory: Positive for cough, shortness of breath, at rest. Exam: 19:38 Constitutional: This is a well developed, well nourished patient who is awake, alert, ivan and in no acute distress. Head/Face: Normocephalic, atraumatic. Eyes: Pupils equal round and reactive to light, extra-ocular motions intact. Lids and lashes normal. Conjunctiva and sclera are non-icteric and not injected. Cornea within normal limits. Periorbital areas with no swelling, redness, or edema. ENT: Nares patent. No nasal discharge, no septal abnormalities noted. Tympanic membranes are normal and external auditory canals are clear. Oropharynx with no redness, swelling, or masses, exudates, or evidence of obstruction, uvula midline. Mucous membranes moist. Neck: Trachea midline, no thyromegaly or masses palpated, and no cervical lymphadenopathy. Supple, full range of motion without nuchal rigidity, or vertebral point tenderness. No Meningismus. Chest/axilla: Normal chest wall appearance and motion. Nontender with no deformity. No lesions are appreciated. Cardiovascular: Regular rate and rhythm with a normal S1 and S2. No gallops, murmurs, or rubs. Normal PMI, no JVD. No pulse deficits. Abdomen/GI: Soft, non-tender, with normal bowel sounds. No distension or tympany. No guarding or rebound. No evidence of tenderness throughout. Back: No spinal tenderness. No costovertebral tenderness. Full range of motion. Female : Normal external genitalia. Skin: Warm, dry with normal turgor. Normal color with no rashes, no lesions, and no evidence of cellulitis. MS/ Extremity: Pulses equal, no cyanosis. Neurovascular intact. Full, normal range of motion. Neuro: Awake and alert, GCS 15, oriented to person, place, time, and situation. Cranial nerves II-XII grossly intact. Motor strength 5/5 in all extremities. Sensory grossly intact. Cerebellar exam normal. Normal gait. Psych: Awake, alert, with orientation to person, place and time. Behavior, mood, and affect are within normal limits. 19:38 Respiratory: the patient does not display signs of respiratory distress, Respirations: normal, Breath sounds: decreased breath sounds, that are mild, rhonchi, that are mild, are scattered, Respiratory rate: 24 20:34 Musculoskeletal/extremity: DVT Exam: No signs of deep vein thrombosis. no pain, no ivan swelling, no tenderness, negative Homans' sign noted on exam, no appreciated bluish discoloration, no erythema, no increased warmth. Vital Signs: 18:56 BP 134 / 98; Pulse 122; Resp 24; Temp 103.2; Pulse Ox 97% on R/A; Pain 5/10; hb 19:27 Weight 81.65 kg (R); ed1 20:19 BP 144 / 70; Pulse 104; Resp 23; Pulse Ox 100% on Nebulizer Mask; Pain 4/10; ed1 20:46 BP 122 / 51; Pulse 108; Resp 16; Temp 100.3(O); Pulse Ox 95% on R/A; Pain 6/10; ed1 MDM: 19:12 Patient medically screened. [facility] 19:43 Data reviewed: vital signs, nurses notes, lab test result(s), EKG, radiologic studies, [facility] CT scan, plain films. 03/17 19:06 Order name: Basic Metabolic Panel; Complete Time: 20:15 ed1 03/17 19:06 Order name: Blood Culture Adult (2) ed1 03/17 19:06 Order name: CBC with Diff; Complete Time: 20:15 ed1 03/17 19:06 Order name: Ckmb; Complete Time: 20:15 ed1 03/17 19:06 Order name: CPK; Complete Time: 20:15 ed1 03/17 19:06 Order name: Lactate; Complete Time: 20:04 ed1 03/17 19:06 Order name: LFT's; Complete Time: 20:15 ed1 03/17 19:06 Order name: Lipase; Complete Time: 20:15 ed1 03/17 19:06 Order name: Procalcitonin; Complete Time: 20:31 ed1 03/17 19:06 Order name: Protime (+inr); Complete Time: 20:15 ed1 03/17 19:06 Order name: Ptt, Activated; Complete Time: 20:15 ed1 03/17 19:06 Order name: Troponin (emerg Dept Use Only); Complete Time: 20:15 ed1 03/17 19:06 Order name: Urine Microscopic Only; Complete Time: 20:04 ed1 03/17 19:38 Order name: Flu; Complete Time: 20:31 [facility] 03/17 19:06 Order name: Chest Single View XRAY; Complete Time: 20:04 ed03/17 19:38 Order name: CT Chest Abdomen Pelvis W/O Contrast: no oral no iv; Complete Time: 20:16 [facility] 03/17 19:50 Order name: Urine Dipstick--Ancillary (enter results); Complete Time: 20:04 ag4 03/17 20:02 Order name: Urine Culture [facility] 03/17 20:16 Order name: BNP [facility] 03/17 19:06 Order name: Accucheck; Complete Time: 19:50 ed1 03/17 19:06 Order name: Cardiac monitoring; Complete Time: 19:50 ed1 03/17 19:06 Order name: EKG - Nurse/Tech; Complete Time: 19:50 ed03/17 19:06 Order name: IV Saline Lock - Large Bore; Complete Time: 19:50 ed1 03/17 19:06 Order name: Labs collected and sent; Complete Time: 19:51 ed1 03/17 19:06 Order name: O2 Per Protocol; Complete Time: 19:51 ed1 03/17 19:06 Order name: O2 Sat Monitoring; Complete Time: 19:51 ed1 03/17 19:06 Order name: Urine Dipstick-Ancillary (obtain specimen); Complete Time: 19:50 ed1 Administered Medications: 19:39 CANCELLED (Physician Discretion): NS 0.9% (30 ml/kg) 30 ml/kg IV at bolus once; Sepsis ed1 Protocol 19:42 Drug: Tylenol 1000 mg Route: PO; ed1 20:47 Follow up: Response: No adverse reaction; Temperature is decreased ed1 19:42 Drug: NS 0.9% 1000 ml Route: IV; Rate: 1 bolus; Site: left jugular; ed1 21:17 Follow up: IV Status: Completed infusion; IV Intake: 1000ml ed1 20:08 Drug: Rocephin 1 grams Route: IV; Rate: per protocol; Site: left jugular; ed1 20:31 Follow up: Response: No adverse reaction; IV Status: Completed infusion ed1 20:11 Drug: Zithromax 500 mg Route: IVPB; Infused Over: 1 hrs; Site: left jugular; ed1 21:18 Follow up: IV Status: Infusion continued upon admission ed1 20:13 Drug: SOLU-Medrol 125 mg Route: IVP; Site: left jugular; ed1 20:31 Follow up: Response: No adverse reaction ed1 20:14 Drug: Pepcid 20 mg Route: IVP; Site: left jugular; ed1 20:33 Follow up: Response: No adverse reaction ed1 20:14 Drug: Xopenex 1.25 mg Route: Inhalation; ed1 20:32 Follow up: Response: No adverse reaction; Marked relief of symptoms ed1 20:14 Drug: AtroVENT Aerosol 0.5 mg Route: Inhalation; ed1 20:32 Follow up: Response: No adverse reaction; Marked relief of symptoms ed1 20:17 Drug: NS 0.9% 1000 ml Route: IV; Rate: 125 ml/hr; Site: left jugular; ed1 21:18 Follow up: IV Status: Infusion continued upon admission ed1 20:29 Drug: Tamiflu 75 mg Route: PO; ed1 21:17 Follow up: Response: No adverse reaction ed1 20:51 Drug: Zofran 4 mg Route: IVP; Site: left jugular; ed1 21:17 Follow up: Response: No adverse reaction; Nausea is decreased ed1 Point of Care Testing: Blood Glucose: 20:00 Blood Glucose: 259 mg/dL; ed1 Ranges: Critical Glucose Levels:Adult <50 mg/dl or >400 mg/dl <40 mg/dl or >180 mg/dl Disposition: 03/17/18 20:07 Hospitalization ordered by Shivani Anguiano for Inpatient Admission. Preliminary diagnosis are Dyspnea, Fever, unspecified, Pneumonia due to other specified bacteria, Type 2 diabetes mellitus, Influenza due to identified novel influenza A virus, Chronic obstructive pulmonary disease with (acute) exacerbation. - Bed requested for Telemetry/MedSurg (Inpatient). - Status is Inpatient Admission. aa1 - Condition is Fair. - Problem is new. - Symptoms have improved. UTI on Admission? No Signatures: Dispatcher [employer] EDNJ Jerri Mejia RN RN Tracy Ross RN RN aa1 Eze Aguilera MD MD cha Riggs, Erika, RN RN ed1 Trish Claros RN RN Corrections: (The following items were deleted from the chart) 19:39 19:06 NS 0.9% (30 ml/kg) 30 ml/kg IV at bolus once; Sepsis Protocol ordered. ed1 ed1 20:26 20:07 Hospitalization Ordered by Shivani Anguiano MD for Inpatient Admission. Preliminary diagnosis is Dyspnea; Fever, unspecified; Pneumonia due to other specified bacteria; Type 2 diabetes mellitus. Bed requested for Telemetry/MedSurg (Inpatient). Status is Inpatient Admission. Condition is Fair. Problem is new. Symptoms have improved. UTI on Admission? No. ivan 20:32 20:26 03/17/2018 20:07 Hospitalization Ordered by Shivani Anguinao MD for Inpatient ivan Admission. Preliminary diagnosis is Dyspnea; Fever, unspecified; Pneumonia due to other specified bacteria; Type 2 diabetes mellitus. Bed requested for Telemetry/MedSurg (Inpatient). Status is Inpatient Admission. Condition is Fair. Problem is new. Symptoms have improved. UTI on Admission? No. ciaran 22:10 20:32 03/17/2018 20:07 Hospitalization Ordered by Shivani Anguiano MD for Inpatient aa1 Admission. Preliminary diagnosis is Dyspnea; Fever, unspecified; Pneumonia due to other specified bacteria; Type 2 diabetes mellitus; Influenza due to identified novel influenza A virus; Chronic obstructive pulmonary disease with (acute) exacerbation. Bed requested for Telemetry/MedSurg (Inpatient). Status is Inpatient Admission. Condition is Fair. Problem is new. Symptoms have improved. UTI on Admission? No. ivan
--- NOTE | 2018-03-17 20:07 | ER ---
Nurse's Notes [facility] Name: Kiley Ortega Age: 72 yrs Sex: Female : 1945 Arrival Date: 03/17/2018 Time: 18:56 Bed 5 Private MD: Diagnosis: Dyspnea;Fever, unspecified;Pneumonia due to other specified bacteria;Type 2 diabetes mellitus;Influenza due to identified novel influenza A virus;Chronic obstructive pulmonary disease with (acute) exacerbation Presentation: 03/17 18:56 Presenting complaint: EMS states: Productive cough, SOB, N/V/D, body aches, and fever x hb 2-3 days. T 102.8, BGL 137, SpO2 96% on RA. Transition of care: patient was not received from another setting of care. Onset of symptoms was March 15, 2018. Risk Assessment: Do you want to hurt yourself or someone else? Patient reports no desire to harm self or others. Initial Sepsis Screen: Does the patient meet any 2 criteria? RR > 20 per min. Temp <36.0*C (96.8*F)) or > 38.3*C (100.9*F). HR > 90 bpm. Yes Does the patient have a suspected source of infection? Yes: Productive cough/pneumonia Care prior to arrival: None. 18:56 Method Of Arrival: EMS: [facility] hb 18:56 Acuity: SHELLEY 2 hb Historical: - Allergies: 19:00 Iodinated Contrast Media - IV Dye; hb 19:00 Tegretol; hb - Home Meds: 20:57 amlodipine 5 mg tab 1 tab once daily for Hypertension [Active]; aspirin 81 mg Oral TbEC ed1 1 tab once daily [Active]; fluxetine 40 mg once daily [Active]; Glimepiride Oral [Active]; Insulin: Humalog Sub-Q [Active]; Januvia Oral [Active]; losartan 100 mg Oral tab 1 tab once daily for Hypertension [Active]; Lyrica 300mg Oral 1 cap 2 times per day for Diabetic Peripheral Neuropathy [Active]; metformin 1,000 mg Oral tab 1 tab 2 times per day for Type 2 Diabetes Mellitus [Active]; omeprazole 40 mg Oral cpDR 1 cap once daily for Gastroesophageal reflux [Active]; - PMHx: 19:00 Diabetes - NIDDM; Hypertension; COPD; TIA; hb - PSHx: 19:00 Hysterectomy; Lumpectomy; hb - Immunization history:: Adult Immunizations up to date. - Social history:: Smoking status: Patient/guardian denies using tobacco. - Ebola Screening: : No symptoms or risks identified at this time. - Family history:: not pertinent. Screenin:00 Abuse screen: Denies threats or abuse. Denies injuries from another. Nutritional hb screening: No deficits noted. Tuberculosis screening: No symptoms or risk factors identified. Fall Risk Total Benoit Fall Scale indicates High Risk Score (45 or more points). Fall prevention measures have been instituted. Side Rails Up X 2 Frequent Obs/Assessments Occuring As available patient and family educated on Fall Prevention Program and Strategies. Assessment: 20:19 General: Appears uncomfortable, Behavior is calm, cooperative, Reports chills for fever ed1 for. Pain: Complains of pain in head Pain currently is 5 out of 10 on a pain scale. Quality of pain is described as aching, Pain began 1 day ago. Neuro: Level of Consciousness is awake, alert, obeys commands, Oriented to person, place, time, situation. Cardiovascular: Rhythm is sinus tachycardia. Respiratory: Reports shortness of breath cough that is Airway is patent Respiratory effort is even, unlabored, Respiratory pattern is regular, symmetrical, Breath sounds are coarse bilaterally. GI: Abdomen is non-distended, Bowel sounds present X 4 quads. Abd is soft and non tender X 4 quads. Patient currently denies diarrhea, nausea, vomiting. : No signs and/or symptoms were reported regarding the genitourinary system. EENT: Oral mucosa is dry. Poor dentition noted. Derm: Skin is intact, with poor turgor Skin is dry, Skin is normal, Skin temperature is hot. Musculoskeletal: Circulation, motion, and sensation intact. Range of motion: intact in all extremities. 20:46 Reassessment: Patient appears in no apparent distress at this time. Patient and/or ed1 family updated on plan of care and expected duration. Pain level reassessed. Patient is alert, oriented x 3, equal unlabored respirations, skin warm/dry/pink. Patient states feeling better. Patient states symptoms have improved. GI: Reports nausea. Vital Signs: 18:56 BP 134 / 98; Pulse 122; Resp 24; Temp 103.2; Pulse Ox 97% on R/A; Pain 5/10; hb 19:27 Weight 81.65 kg (R); ed1 20:19 BP 144 / 70; Pulse 104; Resp 23; Pulse Ox 100% on Nebulizer Mask; Pain 4/10; ed1 20:46 BP 122 / 51; Pulse 108; Resp 16; Temp 100.3(O); Pulse Ox 95% on R/A; Pain 6/10; ed1 ED Course: 18:56 Patient arrived in ED. hb 18:59 Triage completed. hb 19:00 Arm band placed on. hb 19:03 Jeannette Frank, RN is Primary Nurse. ed1 19:05 Patient has correct armband on for positive identification. Placed in gown. Bed in low ed1 position. Call light in reach. Side rails up X2. 19:12 Eze Aguilera MD is Attending Physician. [facility] 19:20 Inserted saline lock: 18 gauge in left EJ, using aseptic technique. Blood collected. By ed1 Dr. Aguilera. 19:31 Chest Single View XRAY In Process Unspecified. EDMS 19:[address] vm2 19:53 CT Chest Abdomen Pelvis W/O Contrast: no oral no iv In Process Unspecified. EDMS 20:03 Notified ED physician of a critical lab result(s). Lactate 2.1. lp1 20:04 Shivani Anguiano MD is Hospitalizing Provider. [facility] 20:24 Notified ED physician of a critical lab result(s). Flu is positive for A. fc 21:20 No provider procedures requiring assistance completed. Patient admitted, IV remains in ed1 place. intact, No redness/swelling at site. Administered Medications: 19:39 CANCELLED (Physician Discretion): NS 0.9% (30 ml/kg) 30 ml/kg IV at bolus once; Sepsis ed1 Protocol 19:42 Drug: Tylenol 1000 mg Route: PO; ed1 20:47 Follow up: Response: No adverse reaction; Temperature is decreased ed1 19:42 Drug: NS 0.9% 1000 ml Route: IV; Rate: 1 bolus; Site: left jugular; ed1 21:17 Follow up: IV Status: Completed infusion; IV Intake: 1000ml ed1 20:08 Drug: Rocephin 1 grams Route: IV; Rate: per protocol; Site: left jugular; ed1 20:31 Follow up: Response: No adverse reaction; IV Status: Completed infusion ed1 20:11 Drug: Zithromax 500 mg Route: IVPB; Infused Over: 1 hrs; Site: left jugular; ed1 21:18 Follow up: IV Status: Infusion continued upon admission ed1 20:13 Drug: SOLU-Medrol 125 mg Route: IVP; Site: left jugular; ed1 20:31 Follow up: Response: No adverse reaction ed1 20:14 Drug: Pepcid 20 mg Route: IVP; Site: left jugular; ed1 20:33 Follow up: Response: No adverse reaction ed1 20:14 Drug: Xopenex 1.25 mg Route: Inhalation; ed1 20:32 Follow up: Response: No adverse reaction; Marked relief of symptoms ed1 20:14 Drug: AtroVENT Aerosol 0.5 mg Route: Inhalation; ed1 20:32 Follow up: Response: No adverse reaction; Marked relief of symptoms ed1 20:17 Drug: NS 0.9% 1000 ml Route: IV; Rate: 125 ml/hr; Site: left jugular; ed1 21:18 Follow up: IV Status: Infusion continued upon admission ed1 20:29 Drug: Tamiflu 75 mg Route: PO; ed1 21:17 Follow up: Response: No adverse reaction ed1 20:51 Drug: Zofran 4 mg Route: IVP; Site: left jugular; ed1 21:17 Follow up: Response: No adverse reaction; Nausea is decreased ed1 Point of Care Testing: Blood Glucose: 20:00 Blood Glucose: 259 mg/dL; ed1 Ranges: Intake: 21:17 IV: 1000ml; Total: 1000ml. ed1 Outcome: 20:07 Decision to Hospitalize by Provider. ivan 21:27 Admitted to Med/surg accompanied by tech, via stretcher, room 213, with chart, Report ed1 called to YUNIOR Smith 21:27 Condition: good 21:27 Discharge instructions given to patient, Instructed on the need for admit, Demonstrated understanding of instructions. 22:10 Patient left the ED. aa1 Signatures: Dispatcher [employer] EDMS Tracy Ross RN RN aa1 Eze Aguilera MD MD cha Chretien, Felicia, RN RN Jeannette Frank RN RN ed1 Radha Mcnair RN RN lp1 Trish Claros, RN RN hb Gladys, Sylvia 2
[2018-03-17] MEDS ORDERED: IPRATROPIUM BROM 0.5MG/2.5ML ONE (20:09)
[2018-03-17] MEDS ORDERED: METHYLPREDNISOLONE 125 MG INJ ONE (20:09)
[2018-03-17] MEDS ORDERED: AZITHROMYCIN 500 MG/250 ML BAG ONE (20:10)
[2018-03-17] MEDS ORDERED: LEVALBUTEROL 1.25 MG/3 ML NEB ONE (20:10)
[2018-03-17] MEDS ORDERED: FAMOTIDINE 20 MG/2 ML VIAL IV ONE (20:10)
[2018-03-17 20:11] LABS: ALT/SGPT 33 U/L (12-78); AST/SGOT 19 U/L (15-37); Albumin 3.6 g/dL (3.4-5.0); Alkaline Phosphatase 113 U/L (45-117); BUN Blood Urea Nitrogen 14 mg/dL (7-18); Bicarbonate 25 mmol/L (21-32); Bilirubin Direct < 0.1 mg/dL (0-0.2); Bilirubin Total 0.2 mg/dL (0.2-1.0); CKMB Creatine Kinase MB < 1.0 ng/mL (0.3-3.6); Creatine Phosphokinase 39 U/L (26-192); Glucose Level 266 mg/dL (74-106); Lipase 123 U/L (73-393); Potassium 3.8 mmol/L (3.5-5.1); Protein, Total 7.1 g/dL (6.4-8.2); Sodium Level 141 mmol/L (136-145); Troponin (Emerg Dept Use Only) < 0.02 ng/mL (0.0-0.045)
[2018-03-17 20:13] LABS: Protime INR 0.96
--- NOTE | 2018-03-17 20:13 | RAD REPORT ---
EXAM DESCRIPTION: CT - Chest Abd Pelvis Wo Con - 03/17/2018 7:52 pm CLINICAL HISTORY: Chest and abdomen pain. Cough;Congestion;Abdominal distention COMPARISON: CT CHEST ABD PELVIS WO CONT dated 04/07/2012 TECHNIQUE: A limited noncontrast study was performed. All CT scans are performed using dose optimization technique as appropriate and may include automated exposure control or mA/KV adjustment according to patient size. FINDINGS: The lungs are mildly emphysematous but clear.No pleural or pericardial effusion.No intrath oracic adenopathy.Small hiatal hernia. The liver, spleen, pancreas, adrenal glands and kidneys are within normal limits. No bowel obstruction, free air, free fluid or abscess. The appendix is not identified as a discrete s tructure, however, no secondary findings of appendicitis are identified. No pathologic lymphadenopa thy in the abdomen or pelvis. No worrisome osseous finding. Mild upper thoracic levoscoliosis. IMPRESSION: No acute abnormality is detected.
[2018-03-17] MEDS ORDERED: OSELTAMIVIR 75 MG CAP ONE (20:37)
[2018-03-17] MEDS ORDERED: ONDANSETRON 4 MG/2 ML VIAL ONE (20:55)
[2018-03-17] MEDS ORDERED: FAMOTIDINE 20 MG/2 ML VIAL IV SCH (22:08)
[2018-03-17 22:42] VITALS: BMI 34.2
[2018-03-17] MEDS: NA CHLORIDE 0.9% 1,000 ML IV SCH (22:57)
[2018-03-17] MEDS ORDERED: OSELTAMIVIR 75 MG CAP PO SCH (23:00)
[2018-03-18] MEDS: METHYLPREDNISOLONE 40 MG INJ IV SCH ×5 (00:58→23:26)
[2018-03-18] MEDS: ACETAMINOPHEN 500 MG TAB PO PRN ×3 (01:02→22:00)
[2018-03-18] MEDS: ALBUTEROL 2.5 MG/3 ML NEB SOL NEB PRN ×3 (02:39→14:56)
[2018-03-18] MEDS: IPRATROPIUM BROM 0.5MG/2.5ML NEB PRN ×3 (02:39→14:56)
[2018-03-18 03:54] LABS: Absolute Lymphocytes (CBC) 0.9 K/uL (0.7-4.9); Absolute Monocytes 0.1 K/uL (0.1-1.3); Absolute Neutrophil 6.2 K/uL (1.8-8.0); Basophils % 0.2 % (0-1.3); Hematocrit 34.4 % (36.0-45.0); MPV 9.1 fL (7.6-11.3); Monocytes % 1.9 % (3.3-12.3); RBC Red Blood Cell Count 4.05 M/uL (3.86-4.86)
[2018-03-18 04:55] LABS: Blood Morphology Comment NOT SEEN (NOT SEEN); Platelet Estimate ADEQ
[2018-03-18] MEDS: ONDANSETRON 4 MG/2 ML VIAL IV PRN ×3 (05:58→21:10)
[2018-03-18] MEDS: NA CHLORIDE 0.9% 1,000 ML IV SCH ×2 (06:49→17:58)
--- NOTE | 2018-03-18 08:14 | RAD REPORT ---
EXAM DESCRIPTION: RAD - Chest Single View - 03/18/2018 6:23 am CLINICAL HISTORY: Chest Pain Chest pain. COMPARISON: Chest Single View dated 03/17/2018; Chest Single View dated 04/30/2017; Chest Single View d ated 04/29/2017; Chest Single View dated 11/20/2015; Chest Abd Pelvis Wo Con dated 03/17/2018 FINDINGS: Portable technique limits examination quality. The lungs appear mildly emphysematous but clear. The heart is mildly prominent in size. No displaced fractures. IMPRESSION: No acute intrathoracic process suspected.
[2018-03-18] MEDS ORDERED: FAMOTIDINE 20 MG/2 ML VIAL IV SCH (09:00)
[2018-03-18] MEDS ORDERED: CEFTRIAXONE 1 GM/NS 50 ML 1 GM/50 ML BAG IV SCH (09:00)
[2018-03-18] MEDS ORDERED: CEFTRIAXONE/SWI 1gm 1 GM/10 ML SYR IV SCH (09:00)
[2018-03-18] MEDS: AZITHROMYCIN IV 500 MG in NA CHLORIDE 0.9% 250 ML IVPB SCH (09:15)
[2018-03-18] MEDS: OSELTAMIVIR PHOSPHATE 30 MG/5 ML SUSPENSION UD PO SCH ×2 (09:15→22:00)
[2018-03-18] MEDS ORDERED: ALENDRONATE 70 MG TAB PO SCH (10:00)
--- NOTE | 2018-03-18 10:31 | EKG ---
Test Date: 2018-03-17 Test Time: 19:07:01 Environmental Specialist: STACY MEASUREMENT RESULTS: Intervals: Rate: 113 HI: 154 QRSD: 68 QT: 334 QTc: 458 [place]: P: 69 HI: 154 QRS: 20 T: 58 INTERPRETIVE STATEMENTS: Sinus tachycardia Otherwise normal ECG Compared to ECG 08/20/2017 15:22:04 Sinus rhythm no longer present Electronically Signed On 03-18-18 10:29:47 BINDING [employer]EMENT[employer] FR[employer]CH CORD by Ran Torres
[2018-03-18] MEDS ORDERED: D50W 25 GM/50 ML SYRINGE IV PRN (11:21)
[2018-03-18] MEDS ORDERED: GLUCAGON 1 MG/VIAL IM PRN (11:21)
[2018-03-18] MEDS: INSULIN -REGULAR HUMAN 50 UNIT/0.5 ML ML SQ SCH ×3 (11:30→22:01)
[2018-03-18] MEDS: ENOXAPARIN 40 MG/0.4 ML SQ SCH (17:57)
[2018-03-18] MEDS: ATORVASTATIN 20 MG TAB PO SCH (21:10)
[2018-03-18] MEDS: PREGABALIN 150 MG CAP PO SCH (21:10)
[2018-03-18] MEDS: ASPIRIN EC 81 MG TAB PO SCH (21:10)
[2018-03-18] MEDS: CEFTRIAXONE/SWI 1gm 1 GM/10 ML SYR IVP SCH (21:11)
[2018-03-18] MEDS: HYDROCODONE/CHLORPHEN 5 ML/OSYR PO PRN (23:26)
--- NOTE | 2018-03-18 23:32 | HP ---
Date of Admission: 03/17/2018 History Of Present Illness: This is a 72-year-old female with history of COPD, been feeling bad for about 45 days she said with increased temperature and body aches. However, also she started coughing and felt much worse yesterday, so she came to emergency room. The patient on her admission workup, she was found to have influenza A positive; however, she also had bibasilar lung interstitial marking suggestive of pneumonitis versus acute bronchitis, so we went ahead and admitted her because she als o was having shortness of breath and she has been having more wheezing. Review of Systems: Respiratory: As above. Cardiovascular: No complaints. Genitourinary: No complaints. Skeletomuscular: No complaints. Gastrointestinal: No complaints. Neurological: No complaints. Past Medical History: 1.COPD. 2.Hypertension. 3.Type 2 diabetes. 4.Hyperlipidemia. 5.Gastroesophageal reflux disease. Family History: Noncontributory. Social History: No smoking, alcohol, or drug abuse history. Medications: Include glipizide 10 mg p.o. daily, metformin 1000 mg p.o. b.i.d., Januvia 100 mg p.o. daily, Fosamax 70 mg p.o. weekly, amlodipine 5 mg p.o. daily, aspirin 81 mg p.o. daily, atorvastatin 40 mg p.o. daily, Prozac 40 mg p.o. daily, losartan 100 mg p.o. daily, omeprazole 40 mg p.o. daily, a nd Lyrica 300 mg p.o. daily. Allergies: INCLUDE CARBAMAZEPINE, IODINATED CONTRAST AND IV DYE. Physical Examination: Vital Signs: Blood pressure 150/55, pulse 90, temperature 97.9, room air pulse oximetry 95%. Heart: Regular rate and rhythm. Chest: Mild end-expiratory wheezing. Abdomen: Soft, nontender. No hepatosplenomegaly. Bowel sounds normoactive. Extremities: No edema. No cyanosis. Peripheral pulses are felt. Neurologic: Alert, oriented, nonfocal. Grossly intact. Diagnostic Data: Electrocardiogram showed sinus tachycardia. CT chest, abdomen, pelvic CT, no acute abnormality. Laboratory Data: White cell count 7.2, hemoglobin 10.9, hematocrit 34.4, platelets 267. Chemistry n oted blood sugar fingersticks are 302. Troponin less than 0.02. Assessment And Plan: Chronic obstructive pulmonary disease exacerbation with influenza A and possibl e bronchitis. The patient is being admitted. Put the patient on Tamiflu 30 mg p.o. b.i.d. Also, e patient is put on Rocephin 1 g IV b.i.d. We will continue her home medicines for chronic medical i llnesses. We will put her on breathing treatments, and we will put her on IV steroids, methylprednis olone. Look orders for details. LÁZARO/MODL Voice ID: [id number]
[2018-03-19] MEDS: NA CHLORIDE 0.9% 1,000 ML IV SCH ×3 (03:41→23:54)
[2018-03-19] MEDS: METHYLPREDNISOLONE 40 MG INJ IV SCH ×4 (05:31→23:53)
[2018-03-19] MEDS: PANTOPRAZOLE 40MG TABLET PO SCH (05:32)
[2018-03-19] MEDS: ALENDRONATE 70 MG TAB PO SCH (06:34)
[2018-03-19] MEDS: INSULIN -REGULAR HUMAN 50 UNIT/0.5 ML ML SQ SCH ×4 (10:34→20:39)
[2018-03-19] MEDS: CEFTRIAXONE/SWI 1gm 1 GM/10 ML SYR IVP SCH ×2 (10:35→20:31)
[2018-03-19] MEDS: OSELTAMIVIR PHOSPHATE 30 MG/5 ML SUSPENSION UD PO SCH ×2 (10:35→20:32)
[2018-03-19] MEDS: FLUOXETINE 20 MG CAP PO SCH (10:35)
[2018-03-19] MEDS: LOSARTAN POTASSIUM 50 MG TABLET PO SCH (10:35)
[2018-03-19] MEDS: PREGABALIN 150 MG CAP PO SCH ×2 (10:35→20:29)
[2018-03-19] MEDS: AMLODIPINE 5 MG TAB PO SCH (10:36)
[2018-03-19] MEDS: ONDANSETRON 4 MG/2 ML VIAL IV PRN ×2 (10:54→18:51)
[2018-03-19] MEDS: AZITHROMYCIN IV 500 MG in NA CHLORIDE 0.9% 250 ML IVPB SCH (10:54)
[2018-03-19] MEDS: HYDROCODONE/CHLORPHEN 5 ML/OSYR PO PRN ×2 (10:54→20:45)
[2018-03-19] MEDS: ALBUTEROL 2.5 MG/3 ML NEB SOL NEB PRN ×2 (12:45→19:15)
[2018-03-19] MEDS: ENOXAPARIN 40 MG/0.4 ML SQ SCH (16:46)
[2018-03-19] MEDS: BENZONATATE 100 MG CAP PO PRN (16:46)
--- NOTE | 2018-03-19 17:39 | PN ---
Subjective: The patient feels little bit better. Her cough and shortness of breath are better. Objective: Vital Signs: Blood pressure 135/65, pulse 70, temperature 98.4. Heart: Regular rate and rhythm. Chest: Mild end-expiratory wheezing. Abdomen: Soft, benign. Neurological: Alert, oriented. Grossly intact. Diagnostic Studies: Hemoglobin 10.9, hematocrit 34.4, platelets 267. Blood sugar fingersticks noted and Chem-7 noted. Assessment And Plan: Chronic obstructive pulmonary disease exacerbation with influenza and possible bronchitis, pneumonitis. The patient is improving. We will continue Tamiflu and IV antibiotics and breathing treatments. Expect discharge in 1 to 2 days. LÁZARO/VIJAY Voice ID: [id number] Report ID: [id number]
[2018-03-19] MEDS: ACETAMINOPHEN 500 MG TAB PO PRN (18:50)
[2018-03-19] MEDS: IPRATROPIUM BROM 0.5MG/2.5ML NEB PRN (19:15)
[2018-03-19] MEDS: ASPIRIN EC 81 MG TAB PO SCH (20:30)
[2018-03-19] MEDS: ATORVASTATIN 20 MG TAB PO SCH (20:30)
[2018-03-20] MEDS: BENZONATATE 100 MG CAP PO PRN ×2 (04:00→10:10)
[2018-03-20] MEDS: METHYLPREDNISOLONE 40 MG INJ IV SCH ×3 (05:41→17:31)
[2018-03-20] MEDS: PANTOPRAZOLE 40MG TABLET PO SCH (05:42)
[2018-03-20] MEDS: PREGABALIN 150 MG CAP PO SCH ×2 (09:00→22:18)
[2018-03-20] MEDS: INSULIN -REGULAR HUMAN 50 UNIT/0.5 ML ML SQ SCH ×4 (10:08→22:18)
[2018-03-20] MEDS: NA CHLORIDE 0.9% 1,000 ML IV SCH (10:08)
[2018-03-20] MEDS: HYDROCODONE/CHLORPHEN 5 ML/OSYR PO PRN ×2 (10:10→22:21)
[2018-03-20] MEDS: OSELTAMIVIR PHOSPHATE 30 MG/5 ML SUSPENSION UD PO SCH ×2 (10:10→22:19)
[2018-03-20] MEDS: AZITHROMYCIN IV 500 MG in NA CHLORIDE 0.9% 250 ML IVPB SCH (10:11)
[2018-03-20] MEDS: CEFTRIAXONE/SWI 1gm 1 GM/10 ML SYR IVP SCH ×2 (10:11→22:19)
[2018-03-20] MEDS: FLUOXETINE 20 MG CAP PO SCH (10:13)
[2018-03-20] MEDS: AMLODIPINE 5 MG TAB PO SCH (10:13)
[2018-03-20] MEDS: LOSARTAN POTASSIUM 50 MG TABLET PO SCH (10:14)
[2018-03-20] MEDS: IPRATROPIUM BROM 0.5MG/2.5ML NEB PRN (11:25)
[2018-03-20] MEDS: ALBUTEROL 2.5 MG/3 ML NEB SOL NEB PRN (11:25)
[2018-03-20] MEDS ORDERED: FUROSEMIDE 20 MG/ 2ML VIAL IV ONE (12:02)
[2018-03-20] MEDS: ONDANSETRON 4 MG/2 ML VIAL IV PRN ×2 (15:18→22:21)
[2018-03-20] MEDS: ENOXAPARIN 40 MG/0.4 ML SQ SCH (17:31)
--- NOTE | 2018-03-20 19:25 | RAD REPORT ---
EXAM DESCRIPTION: RAD - Chest Single View - 03/20/2018 7:04 pm CLINICAL HISTORY: Shortness of breath COMPARISON: March 18 TECHNIQUE: AP portable chest image was obtained 1903 hours . FINDINGS: Interstitial and alveolar opacification are present throughout much of the right lung fiel d and the upper left lung field. The alveolar component represents change from prior imaging. Peribro nchial thickening is present but not clearly different. Heart size is normal. Pulmonary vasculature w ithin normal limits. No pneumothorax or large pleural effusion. No acute bony abnormality seen. No ac tomás aortic findings suspected. IMPRESSION: Significant progression of lung parenchymal disease in the right hemithorax and left upp er lung field. This is most likely pneumonia.
[2018-03-20] MEDS: ATORVASTATIN 20 MG TAB PO SCH (22:18)
[2018-03-20] MEDS: ASPIRIN EC 81 MG TAB PO SCH (22:18)
--- NOTE | 2018-03-20 23:04 | PN ---
Subjective: The patient earlier today had an acute shortness of breath along with she went down on h er pulse oximetry saturation to 55%. We went ahead and put the patient on BiPAP and she is now satur ating more than 90% and she is comfortable and feeling well. Objective: VITAL SIGNS: The patient's blood pressure is 160/50, pulse of 100, temperature 96.8. HEART: Tachycardic. Regular rate and rhythm. CHEST: Mild bilateral end-expiratory wheezing. ABDOMEN: Soft, nontender. No hepatosplenomegaly. Bowel sounds are normoactive. EXTREMITIES: No edema. No cyanosis. Peripheral pulses are felt. NEUROLOGIC: Alert, oriented, nonfocal. Grossly intact. Assessment And Plan: 1.Influenza A and pneumonia. The patient is on antibiotics IV and on Tamiflu however and she has be en stable from that standpoint. 2.Acute respiratory failure with hypoxemia. I have ordered a V/Q scan to rule out pulmonary embolis m. The patient is allergic to IV dye to do a CAT scan, so we will do a V/Q scan. I have ordered a c hest x-ray. The patient is on BiPAP, she is comfortable now. I think the patient may have had fluid overload because she has been on normal saline at 100 cc an hour, so we will give her IV Lasix and t ry to diurese her and see how would she respond to that and we will check the chest x-ray result and the V/Q scan result. The patient has already been on Lovenox prophylaxis for deep vein thrombosis si nje admission. 3.Type 2 diabetes. We are following blood sugar fingersticks and we will continue her on sliding scale. Patient's urinalysis on microbiology showed mixed belkis. Look o ezekiel for details. MFS/MODL Voice ID: [id number] Report ID: [id number]
[2018-03-21] MEDS: METHYLPREDNISOLONE 40 MG INJ IV SCH ×3 (00:55→17:30)
[2018-03-21] MEDS: BENZONATATE 100 MG CAP PO PRN ×2 (03:20→12:53)
[2018-03-21] MEDS: PANTOPRAZOLE 40MG TABLET PO SCH (06:28)
[2018-03-21 06:59] LABS: BUN Blood Urea Nitrogen 17 mg/dL (7-18); Bicarbonate 28 mmol/L (21-32); Glucose Level 223 mg/dL (74-106); Potassium 3.9 mmol/L (3.5-5.1); Sodium Level 139 mmol/L (136-145)
[2018-03-21 07:01] LABS: Absolute Lymphocytes (CBC) 0.6 K/uL (0.7-4.9); Absolute Monocytes 0.6 K/uL (0.1-1.3); Lymphocytes % 5.7 % (15.3-44.8); MPV 8.8 fL (7.6-11.3); Monocytes % 5.4 % (3.3-12.3); RBC Red Blood Cell Count 4.34 M/uL (3.86-4.86)
[2018-03-21 07:02] LABS: Magnesium 2.2 mg/dL (1.8-2.4); Phosphorus 2.4 mg/dL (2.5-4.9)
[2018-03-21] MEDS: INSULIN -REGULAR HUMAN 50 UNIT/0.5 ML ML SQ SCH ×4 (09:12→22:20)
[2018-03-21] MEDS: AZITHROMYCIN IV 500 MG in NA CHLORIDE 0.9% 250 ML IVPB SCH (09:13)
[2018-03-21] MEDS: CEFTRIAXONE/SWI 1gm 1 GM/10 ML SYR IVP SCH ×2 (09:13→22:20)
[2018-03-21] MEDS: PREGABALIN 150 MG CAP PO SCH ×2 (09:14→22:19)
[2018-03-21] MEDS: FLUOXETINE 20 MG CAP PO SCH (09:14)
[2018-03-21] MEDS: LOSARTAN POTASSIUM 50 MG TABLET PO SCH (09:15)
[2018-03-21] MEDS: AMLODIPINE 5 MG TAB PO SCH (09:15)
[2018-03-21] MEDS: POTASS/SODIUM PHOSPHATE 1 PKT POWD.PACK PO SCH ×3 (09:15→12:16)
[2018-03-21] MEDS: OSELTAMIVIR PHOSPHATE 30 MG/5 ML SUSPENSION UD PO SCH ×2 (09:23→22:21)
[2018-03-21] MEDS: ONDANSETRON 4 MG/2 ML VIAL IV PRN (09:25)
--- NOTE | 2018-03-21 10:55 | P.CNS ---
Date of Consult: 03/21/18 Chief Complaint: Shortness of breath History of Present Illness: Patient is 72 years of age admitted with a 2 week history of the flu with cough shortness of breath yellow with a history of COPD using albuterol at home not on any oxygen denies any chest pain was no evidence of pneumonia Allergies carbamazepine [From Tegretol] Allergy (Intermediate, Verified 11/20/15 04:00) Hives/Rash Iodinated Contrast- Oral and IV Dye [IV Dye, Iodine Containing Contrast ] Allergy (Intermediate, Verified 11/20/15 04:00) Hives Home Medications: Amlodipine [Norvasc*] 5 mg PO DAILY 04/30/17 Aspirin [Aspir-Low] 81 mg PO BEDTIME 04/30/17 Atorvastatin Calcium 20 mg PO BEDTIME 04/30/17 Fluoxetine HCl [Prozac] 40 mg PO DAILY 04/30/17 Losartan Potassium 100 mg PO DAILY 04/30/17 Metformin HCl 1,000 mg PO BID 04/30/17 Omeprazole [Prilosec] 40 mg PO DAILY 04/30/17 Pregabalin [Lyrica] 300 mg PO BID 04/30/17 Alendronate Sodium 1 tab PO Q7D 03/17/18 Glipizide [Glipizide ER] 10 mg PO BID 03/17/18 Sitagliptin Phosphate [Januvia*] 1 tab PO DAILY 03/17/18 - Past Medical/Surgical History Diabetic: Yes -: CVA -: HTN -: TIA -: IDDM -: COPD -: BREAST AND CERVICAL CA -: ANEMIA -: DEPRESSION/ANXIETY -: HEADACHES -: Bladder Suspension sx 4 -: Left Ankle Surgery -: Stomach surgery (ureter sx) -: Breast biopsy -: appy -: hyst - Family History Father Medical History: Hypertension, Stroke Mother Medical History: Hypertension, Diabetes - Social History Smoking Status: Never smoker Alcohol use: No CD- Drugs: No Caffeine use: Yes Place of Residence: Home Review of Systems 10-point ROS is otherwise unremarkable General: Weakness Respiratory: Cough, Shortness of Breath Physical Examination Temp Pulse Resp BP Pulse Ox 97.0 F 75 20 163/72 H 100 03/21/18 04:00 03/21/18 09:15 03/21/18 04:00 03/21/18 09:15 03/21/18 04:00 General: Alert, Oriented x3 HEENT: Atraumatic Neck: Supple Respiratory: Clear to auscultation bilaterally, Friction rub Cardiovascular: Normal pulses, Regular rate/rhythm - Problems (1) COPD exacerbation Onset Date: 11/20/15 Current Visit: No Status: Acute Plan: I strongly suspect that the patient has COPD exacerbation there is no evidence of pneumonia or congestive heart failure chest x-rays clear on admission she does patchy changes on recent x-ray it's more hypoxic I have added a low-dose diuretic continue with antibiotics reduce dose of steroids scheduled bronchodilators schedule chest x-rays arterial blood gases
[2018-03-21] MEDS: FUROSEMIDE 20 MG/ 2ML VIAL IV SCH ×2 (12:16→17:29)
[2018-03-21] MEDS: ACETAMINOPHEN 325 MG TABLET PO PRN (12:55)
[2018-03-21 13:52] LABS: Arterial Blood Carboxyhemoglob 0.9 % (0-1.5); Blood Gas Oxyhemoglobin 89.3 % (94-97); Blood O2 Saturation 91.2 % (92-98.5)
[2018-03-21] MEDS: IPRATROPIUM BROM 0.5MG/2.5ML NEB SCH ×2 (13:58→20:00)
[2018-03-21] MEDS: ARFORMOTEROL TARTRATE 15 MCG/2 ML VIAL.NEB NEB SCH ×2 (13:58→20:00)
[2018-03-21] MEDS: ENOXAPARIN 40 MG/0.4 ML SQ SCH (17:29)
[2018-03-21] MEDS: NA CHLORIDE 0.9% 1,000 ML IV SCH (17:31)
--- NOTE | 2018-03-21 18:12 | PN ---
Subjective: The patient feels better today. Her shortness of breath is less. She is on 4 L oxygen nasal prong and she is comfortable and her saturation is more than 90%. Objective: Vital Signs: Her blood pressure 150/70, pulse 86, temperature 97. Heart: Regular rate and rhythm. Chest: End-expiratory wheezing bilateral. Abdomen: Soft, nontender. No hepatosplenomegaly. Bowel sounds are normoactive. Extremities: No edema. No cyanosis. Peripheral pulses are felt. Neurologic: Alert, oriented, nonfocal. Grossly intact. Diagnostic Studies: Blood sugar fingersticks noted at 200. White cell count 11.3, hemoglobin 11.5, hematocrit 36, and platelets 250. Chem-7 noted and blood sugar fingersticks noted. Assessment And Plan: 1.Acute respiratory failure with hypoxemia. Her chest x-ray showed significant progression of lung parenchymal disease in the right hemithorax and left upper lung field; however, most likely pneumonia . However, I have asked Dr. Castro to see the patient. He thinks that most likely it is not pneum onia but chronic obstructive pulmonary disease exacerbation. However, we will go ahead and continue current antibiotics and steroids and beta 2 agonist and breathing treatments. We will follow the rec ommendation of Pulmonary otherwise. 2.The patient is improving from the standpoint of her symptoms and her pulse oximetry. 3.Type 2 diabetes mellitus. We will continue monitoring blood sugar fingersticks and put her on ins ulin sliding scale. 4.Rest of medical problems and hypertension, clinically stable. Look orders for details. MFS/MODL Voice ID: [id number] Report ID: [id number]
[2018-03-21] MEDS: ATORVASTATIN 20 MG TAB PO SCH (22:19)
[2018-03-21] MEDS: ASPIRIN EC 81 MG TAB PO SCH (22:19)
[2018-03-21] MEDS: HYDROCODONE/CHLORPHEN 5 ML/OSYR PO PRN (22:20)
[2018-03-22] MEDS: IPRATROPIUM BROM 0.5MG/2.5ML NEB SCH ×4 (02:00→20:05)
[2018-03-22] MEDS: METHYLPREDNISOLONE 40 MG INJ IV SCH ×3 (02:40→16:22)
[2018-03-22] MEDS: PANTOPRAZOLE 40MG TABLET PO SCH (05:37)
[2018-03-22] MEDS: ONDANSETRON 4 MG/2 ML VIAL IV PRN ×3 (05:37→17:39)
[2018-03-22] MEDS: BENZONATATE 100 MG CAP PO PRN ×2 (05:39→12:50)
[2018-03-22 06:05] LABS: BUN Blood Urea Nitrogen 19 mg/dL (7-18); Bicarbonate 29 mmol/L (21-32); Glucose Level 233 mg/dL (74-106); Phosphorus 2.7 mg/dL (2.5-4.9); Potassium 3.8 mmol/L (3.5-5.1); Sodium Level 140 mmol/L (136-145)
[2018-03-22] MEDS: ARFORMOTEROL TARTRATE 15 MCG/2 ML VIAL.NEB NEB SCH ×2 (07:37→20:05)
--- NOTE | 2018-03-22 08:01 | RAD REPORT ---
EXAM DESCRIPTION: RAD - Chest Single View - 03/22/2018 7:01 am CLINICAL HISTORY: Pneumonia COMPARISON: March 20 TECHNIQUE: AP portable chest image was obtained 0651 hours . FINDINGS: Lung volumes are normal range matching the prior study. Interstitial markings remain promi nent. The alveolar opacification pattern, more pronounced on the right, has shown significant improve ment. There is still alveolar opacification remaining. Vasculature is prominent with peribronchial th ickening. Heart size is upper normal. No pneumothorax. No enlarging pleural effusion. IMPRESSION: Significant improvement in the alveolar edema or pneumonia findings in the lung samson. No progressive lung parenchymal process.
[2018-03-22] MEDS ORDERED: POTASSIUM 25 MEQ EFFERV TAB PO ONE (09:00)
[2018-03-22] MEDS: PREGABALIN 150 MG CAP PO SCH ×2 (09:04→22:34)
[2018-03-22] MEDS: OSELTAMIVIR PHOSPHATE 30 MG/5 ML SUSPENSION UD PO SCH ×2 (09:05→22:36)
[2018-03-22] MEDS: FLUOXETINE 20 MG CAP PO SCH (09:05)
[2018-03-22] MEDS: CEFTRIAXONE/SWI 1gm 1 GM/10 ML SYR IVP SCH ×2 (09:05→22:34)
[2018-03-22] MEDS: AMLODIPINE 5 MG TAB PO SCH (09:06)
[2018-03-22] MEDS: AZITHROMYCIN IV 500 MG in NA CHLORIDE 0.9% 250 ML IVPB SCH (09:06)
[2018-03-22] MEDS: INSULIN -REGULAR HUMAN 50 UNIT/0.5 ML ML SQ SCH ×4 (09:07→22:34)
[2018-03-22] MEDS: LOSARTAN POTASSIUM 50 MG TABLET PO SCH (09:07)
[2018-03-22] MEDS: FUROSEMIDE 20 MG/ 2ML VIAL IV SCH ×2 (09:07→16:22)
[2018-03-22] MEDS: HYDROCODONE/CHLORPHEN 5 ML/OSYR PO PRN ×2 (10:30→23:29)
--- NOTE | 2018-03-22 10:44 | RAD REPORT ---
EXAM DESCRIPTION: NM - Vent Perfusion VQ Scan - 03/22/2018 10:32 am CLINICAL HISTORY: Sudden shortness of breath, decreased O2 saturation COMPARISON: Portable chest March 22 TECHNIQUE: The patient was administered 17.4 mCi Xenon 133 gas with posterior projection inspiration , equilibrium, and washout views obtained. The patient was then administered 7.1 mCi Tc-99m MAA label ed RBCs followed by standard 8 view protocol. FINDINGS: There is good distribution of the Xenon with no ventilation defects identified. Minimal ai r trapping identified. No lobar defects are present. There is no large segment perfusion abnormality. Patient has numerous s ubsegmental areas of diminished activity scattered in both lung samson. Chest films same date shows i nterstitial and alveolar opacification scattered throughout the lung samson. Chest parenchymal opacif ication pattern generally matches the perfusion defects. Examination is considered intermediate prob ability with the chest film abnormalities matching the lung perfusion abnormalities. IMPRESSION: Exam is considered intermediate probability with multiple lung parenchymal opacities mat paul the perfusion defects.
[2018-03-22] MEDS ORDERED: D50W 25 GM/50 ML SYRINGE IV PRN (11:56)
[2018-03-22] MEDS ORDERED: GLUCAGON 1 MG/VIAL IM PRN (11:56)
[2018-03-22] MEDS ORDERED: INSULIN -REGULAR HUMAN 50 UNIT/0.5 ML ML IV ONE (12:30)
[2018-03-22] MEDS: ACETAMINOPHEN 325 MG TABLET PO PRN (16:07)
[2018-03-22] MEDS: ENOXAPARIN 40 MG/0.4 ML SQ SCH (16:22)
--- NOTE | 2018-03-22 17:04 | PN ---
Subjective: The patient feels better today. No new complaints. Physical Examination: Vital Signs: Blood pressure 150/68, pulse 75, temperature 98.5. Heart: Regular rate and rhythm. Chest: Mild end-expiratory wheezing. Abdomen: Soft, nontender. No hepatosplenomegaly. Bowel sounds are normoactive. Extremities: No edema. No cyanosis. Peripheral pulses are felt. Neurologic: Alert, oriented, nonfocal. Grossly intact. Pulse oximetry, on 4 L oxygen nasal prong, 94. Imaging And Laboratory Data: Chest x-ray showed significant improvement in alveolar edema and pneumo zahida, findings in the lung samson. Blood sugar, fingersticks noted. Assessment And Plan: 1.Type 2 diabetes, increased blood sugar because of steroids. Expect that to improve when the patie nt is being off that. For now, we will keep her on regular insulin sliding scale. 2.Pneumonia by x-ray and clinically, the patient is responding and doing well. 3.Chronic obstructive pulmonary disease exacerbation is also improving. We will continue current tr eatment and expect discharge tomorrow. The patient continues to do well. MFS/MODL Voice ID: [id number] Report ID: [id number]
[2018-03-22] MEDS: ASPIRIN EC 81 MG TAB PO SCH (22:34)
[2018-03-22] MEDS: ATORVASTATIN 20 MG TAB PO SCH (22:34)
[2018-03-23] MEDS: METHYLPREDNISOLONE 40 MG INJ IV SCH ×2 (00:53→08:56)
[2018-03-23] MEDS: IPRATROPIUM BROM 0.5MG/2.5ML NEB SCH ×4 (01:16→20:00)
[2018-03-23] MEDS: ALBUTEROL 2.5 MG/3 ML NEB SOL NEB PRN (01:16)
[2018-03-23] MEDS: PANTOPRAZOLE 40MG TABLET PO SCH (05:49)
[2018-03-23] MEDS: BENZONATATE 100 MG CAP PO PRN ×2 (05:51→12:14)
[2018-03-23 06:30] LABS: BUN Blood Urea Nitrogen 18 mg/dL (7-18); Bicarbonate 34 mmol/L (21-32); Glucose Level 223 mg/dL (74-106); Potassium 3.4 mmol/L (3.5-5.1); Sodium Level 141 mmol/L (136-145)
[2018-03-23] MEDS: NA CHLORIDE 0.9% 1,000 ML IV SCH (08:45)
[2018-03-23] MEDS: AZITHROMYCIN IV 500 MG in NA CHLORIDE 0.9% 250 ML IVPB SCH (08:47)
[2018-03-23] MEDS: INSULIN -REGULAR HUMAN 50 UNIT/0.5 ML ML SQ SCH ×4 (08:50→20:29)
[2018-03-23] MEDS: OSELTAMIVIR PHOSPHATE 30 MG/5 ML SUSPENSION UD PO SCH ×2 (08:51→20:22)
[2018-03-23] MEDS: ACETAMINOPHEN 325 MG TABLET PO PRN ×2 (08:51→20:30)
[2018-03-23] MEDS: CEFTRIAXONE/SWI 1gm 1 GM/10 ML SYR IVP SCH (08:51)
[2018-03-23] MEDS: FUROSEMIDE 20 MG/ 2ML VIAL IV SCH (08:53)
[2018-03-23] MEDS: LOSARTAN POTASSIUM 50 MG TABLET PO SCH (08:53)
[2018-03-23] MEDS: AMLODIPINE 5 MG TAB PO SCH (08:53)
[2018-03-23] MEDS: FLUOXETINE 20 MG CAP PO SCH (08:54)
[2018-03-23] MEDS: PREGABALIN 150 MG CAP PO SCH ×2 (08:56→20:21)
[2018-03-23] MEDS: ONDANSETRON 4 MG/2 ML VIAL IV PRN (08:56)
[2018-03-23] MEDS: ARFORMOTEROL TARTRATE 15 MCG/2 ML VIAL.NEB NEB SCH ×2 (08:57→20:00)
[2018-03-23] MEDS ORDERED: POTASSIUM 25 MEQ EFFERV TAB PO ONE (09:00)
--- NOTE | 2018-03-23 12:18 | P.PN ---
Subjective Date of Service: 03/23/18 Chief Complaint: Shortness of breath Subjective: Improving (Improving still complaining of cough and congestion shortness of breath on mild exertion) Review of Systems General: Weakness Respiratory: Cough, Shortness of Breath Physical Examination - Vital Signs Temperature: 97.4 F Blood Pressure: 189/81 Pulse: 72 Respirations: 16 Pulse Ox (%): 94 - Physical Exam General: Alert, Oriented x3, Mild distress Neck: Supple Respiratory: Clear to auscultation bilaterally, Diminished Cardiovascular: No edema, Normal S1 S2 - Studies Microbiology Data (last 24 hrs): 03/17/18 19:40 Blood - Blood Aerobic Blood Culture - Final No growth in 5 days. 03/17/18 19:40 Blood - Blood Anaerobic Blood Culture - Final No growth in 5 days. 03/17/18 19:20 Blood - Blood Aerobic Blood Culture - Final No growth in 5 days. 03/17/18 19:20 Blood - Blood Anaerobic Blood Culture - Final No growth in 5 days. Assessment & Plan - Problems (Diagnosis) (1) COPD exacerbation Onset Date: 11/20/15 Current Visit: No Status: Acute Plan: Patient is 72 years of age admitted with COPD exacerbation is no clinical evidence of sepsis has been an improvement in her x-ray is quite possible that she had evidence of heart failure improved with Lasix Dc IV antibiotics patient is also influenza A positive patient will qualify for home O2 also treated for her influenza change to p.o. prednisone
[2018-03-23] MEDS: SPIRONOLACTONE 25 MG TABLET PO SCH ×2 (13:12→20:21)
[2018-03-23] MEDS: ENOXAPARIN 40 MG/0.4 ML SQ SCH (16:40)
--- NOTE | 2018-03-23 16:41 | PN ---
Subjective: The patient feels better. Her shortness of breath is less. Physical Examination: Vital Signs: Blood pressure 189/80, pulse 70, temperature 97.4. Heart: Regular rate and rhythm. Chest: End-expiratory wheezing bilaterally. Abdomen: Soft, nontender. No hepatosplenomegaly. Bowel sounds are normoactive. Extremities: No edema. No cyanosis. Peripheral pulses are felt. Neurologic: Alert, oriented, nonfocal. Grossly intact. Laboratory Data: Blood sugar fingersticks noted. Chem-7; noted with a potassium of 3.4. Assessment And Plan: 1.Chronic obstructive pulmonary disease exacerbation and pneumonia, controlled. The patient is stil l using oxygen. We will ask arrangements if she needs home oxygen for discharge. 2.Type 2 diabetes. We will continue the patient on sliding scale or Regular insulin. 3.We will put the patient on electrolyte protocol. 4.Expect discharge today or tomorrow. MFS/MODL Voice ID: [id number] Report ID: [id number]
[2018-03-23] MEDS: CEFUROXIME 250 MG TAB PO SCH (20:21)
[2018-03-23] MEDS: predniSONE 20 MG TAB PO SCH (20:21)
[2018-03-23] MEDS: ASPIRIN EC 81 MG TAB PO SCH (20:22)
[2018-03-23] MEDS: ATORVASTATIN 20 MG TAB PO SCH (20:22)
[2018-03-23] MEDS: HYDROCODONE/CHLORPHEN 5 ML/OSYR PO PRN (20:34)
[2018-03-24] MEDS: IPRATROPIUM BROM 0.5MG/2.5ML NEB SCH ×4 (02:00→20:16)
[2018-03-24] MEDS: PANTOPRAZOLE 40MG TABLET PO SCH (05:27)
[2018-03-24] MEDS: ARFORMOTEROL TARTRATE 15 MCG/2 ML VIAL.NEB NEB SCH ×2 (08:05→20:16)
--- NOTE | 2018-03-24 08:13 | ECHO ---
HEIGHT: 5 ft 2 in WEIGHT: 180 lb 1.6 oz DATE OF STUDY: 03/23/[address]: Jace Castro MD 2-DIMENSIONAL: YES M.MODE: YES DOPPLER: YES COLOR FLOW: YES TDS: NO PORTABLE: NO DEFINITY: NO BUBBLE STUDY: NO DIAGNOSIS: SHORTNESS OF BREATH CARDIAC HISTORY: CATHERIZATION: NO SURGERY: NO PROSTHETIC VALVE: NO PACEMAKER: NO MEASUREMENTS (cm) DIASTOLIC (NORMALS) SYSTOLIC (NORMALS) IVSd 1.2 (0.6-1.2) LA Diam 3.5 (1.9-4.0) LVEF 66% LVIDd 3.1 (3.5-5.7) LVIDs 2.0 (2.0-3.5) %FS 35% LVPWd 1.2 (0.6-1.2) Ao Diam 2.2 (2.0-3.7) 2 DIMENSIONAL ASSESSMENT: RIGHT ATRIUM: NORMAL LEFT ATRIUM: NORMAL RIGHT VENTRICLE: NORMAL LEFT VENTRICLE: NORMAL TRICUSPID VALVE: NORMAL MITRAL VALVE: NORMAL PULMONIC VALVE: NORMAL AORTIC VALVE: NORMAL PERICARDIAL EFFUSION: NONE AORTIC ROOT: NORMAL LEFT VENTRICULAR WALL MOTION: NORMAL DOPPLER/COLOR FLOW: MILD MITRAL REGURGITATION. COMMENTS: NORMAL 2D ECHOCARDIOGRAM. MILD MITRAL REGURGITATION. TECHNOLOGIST: Frankie LAZARO
[2018-03-24] MEDS: OSELTAMIVIR PHOSPHATE 30 MG/5 ML SUSPENSION UD PO SCH ×2 (09:00→21:34)
[2018-03-24] MEDS: PREGABALIN 150 MG CAP PO SCH ×2 (09:39→21:34)
[2018-03-24] MEDS: INSULIN -REGULAR HUMAN 50 UNIT/0.5 ML ML SQ SCH ×4 (09:39→21:35)
[2018-03-24] MEDS: AMLODIPINE 10 MG TAB PO SCH (09:40)
[2018-03-24] MEDS: LOSARTAN POTASSIUM 50 MG TABLET PO SCH (09:40)
[2018-03-24] MEDS: FLUOXETINE 20 MG CAP PO SCH (09:40)
[2018-03-24] MEDS: SPIRONOLACTONE 25 MG TABLET PO SCH ×2 (09:40→21:34)
[2018-03-24] MEDS: predniSONE 20 MG TAB PO SCH ×2 (09:40→21:35)
[2018-03-24] MEDS: CEFUROXIME 250 MG TAB PO SCH ×2 (09:41→21:34)
[2018-03-24] MEDS: BENZONATATE 100 MG CAP PO PRN (12:52)
[2018-03-24] MEDS: ENOXAPARIN 40 MG/0.4 ML SQ SCH (16:56)
--- NOTE | 2018-03-24 17:06 | PN ---
Subjective: The patient is feeling well. Objective: Vital Signs: Blood pressure 160/70, pulse 74, temperature 97.5. Heart: Regular rate and rhythm. Chest: Bilateral end-expiratory wheezing. Abdomen: Soft, benign. Neurologic: Alert, oriented. Grossly intact. Laboratory Data: Blood sugar fingersticks noted in the 200s. Assessment And Plan: 1.Type 2 diabetes. We will continue current sliding scale. 2.Hypertension, better control with increased dose of amlodipine. 3.Chronic obstructive pulmonary disease exacerbation, improving. The patient may need home oxygen. We will continue current treatment. Expect discharge tomorrow. Look orders for details. MFS/MODL Voice ID: [id number] Report ID: [id number]
[2018-03-24] MEDS: HYDROCODONE/CHLORPHEN 5 ML/OSYR PO PRN (21:35)
[2018-03-24] MEDS: ACETAMINOPHEN 325 MG TABLET PO PRN (21:35)
[2018-03-24] MEDS: ATORVASTATIN 20 MG TAB PO SCH (21:35)
[2018-03-24] MEDS: ASPIRIN EC 81 MG TAB PO SCH (21:35)
[2018-03-25] MEDS: NA CHLORIDE 0.9% 1,000 ML IV SCH (01:37)
[2018-03-25] MEDS: IPRATROPIUM BROM 0.5MG/2.5ML NEB SCH ×4 (01:46→20:00)
[2018-03-25] MEDS: PANTOPRAZOLE 40MG TABLET PO SCH (05:25)
[2018-03-25] MEDS: INSULIN -REGULAR HUMAN 50 UNIT/0.5 ML ML SQ SCH ×4 (08:41→21:35)
[2018-03-25] MEDS: SPIRONOLACTONE 25 MG TABLET PO SCH ×2 (08:43→21:37)
[2018-03-25] MEDS: LOSARTAN POTASSIUM 50 MG TABLET PO SCH (08:43)
[2018-03-25] MEDS: PREGABALIN 150 MG CAP PO SCH ×2 (08:43→21:39)
[2018-03-25] MEDS: predniSONE 20 MG TAB PO SCH ×2 (08:43→21:38)
[2018-03-25] MEDS: FLUOXETINE 20 MG CAP PO SCH (08:43)
[2018-03-25] MEDS: CEFUROXIME 250 MG TAB PO SCH ×2 (08:44→21:37)
[2018-03-25] MEDS: AMLODIPINE 10 MG TAB PO SCH (08:44)
[2018-03-25] MEDS: OSELTAMIVIR PHOSPHATE 30 MG/5 ML SUSPENSION UD PO SCH ×2 (08:44→21:35)
[2018-03-25] MEDS: BENZONATATE 100 MG CAP PO PRN (08:49)
[2018-03-25] MEDS: ARFORMOTEROL TARTRATE 15 MCG/2 ML VIAL.NEB NEB SCH ×2 (10:36→20:00)
[2018-03-25] MEDS: ENOXAPARIN 40 MG/0.4 ML SQ SCH (16:38)
[2018-03-25] MEDS: ATORVASTATIN 20 MG TAB PO SCH (21:38)
[2018-03-25] MEDS: ASPIRIN EC 81 MG TAB PO SCH (21:38)
[2018-03-25] MEDS: HYDROCODONE/CHLORPHEN 5 ML/OSYR PO PRN (23:23)
[2018-03-26] MEDS: IPRATROPIUM BROM 0.5MG/2.5ML NEB SCH ×4 (02:00→20:40)
[2018-03-26] MEDS: ACETAMINOPHEN 325 MG TABLET PO PRN (04:39)
[2018-03-26] MEDS: PANTOPRAZOLE 40MG TABLET PO SCH (05:36)
[2018-03-26] MEDS: ALENDRONATE 70 MG TAB PO SCH (05:37)
--- NOTE | 2018-03-26 06:27 | DS ---
History Of Present Illness: A 72-year-old female who was admitted to the hospital because of [facility] shortness of breath and COPD exacerbation along with right lung pneumonia, possible. Past Medical History: As per admit note. Social History: As per admit note. Family History: As per admit note. Medications: As per admit note. Allergies: PER ADMIT NOTE. Physical Examination: As per admit note. Diagnostic Data: As per admit note. Hospital Course: The patient was admitted to the hospital. She was put on Tamiflu 30 mg p.o. b.i.d. We also started her on [id number] breathing treatments, oxygen protocol, and IV antibiotic Roce phin. We also monitored her blood sugar fingersticks and put her on regular insulin sliding scale an d monitored her vitals and her blood pressure. The patient gradually started to improve. However, s he went after 2 days into hypoxia and acute respiratory failure. Chest x-ray showed worsening of pne umonia. We put the patient on BiPAP protocol, and we asked Dr. Castro of Pulmonary to see the larry ent. Dr. Castro thought the patient's main problem is COPD exacerbation. V/Q lung scan was interm ediate; however, because of interstitial lung markings it was not reliable for PE. She was allergic to IV dye. So, we could not do a CT angio. An echocardiogram on her heart did not show congestive h eart failure. The patient on IV steroids gradually improved. It is worth mentioning that the patien t since admission was on Lovenox prophylaxis. The patient improved well, and she was tapered down to oxygen 2 L nasal prong. She is afebrile, and her lung examination today showed that she is having m ild end-expiratory wheezing. She is comfortable and moving around. She is afebrile. We thought marta t the patient is stable enough to be discharged. We put her on oral prednisone 10 mg p.o. b.i.d. and on Ceftin antibiotic 500 mg p.o. b.i.d. for 5 days. The patient to continue [id number] breathin g treatments and Atrovent and the rest of her home medicines. I have increased also her blood pressu re medication amlodipine from 5 to 10 mg p.o. daily because her blood pressure was high during hospit alization, and her blood pressure was controlled on this dose. We will continue the rest of her home medicines. We thought the patient could be stable enough to be discharged if it is okay with Dr. Jose G trejo. She is discharged also on 2 L oxygen nasal prong. Look discharge orders for details. MFS/MODL Voice ID: [id number] Report ID: [id number]
[2018-03-26] MEDS: INSULIN -REGULAR HUMAN 50 UNIT/0.5 ML ML SQ SCH ×4 (07:30→21:07)
[2018-03-26] MEDS: ARFORMOTEROL TARTRATE 15 MCG/2 ML VIAL.NEB NEB SCH ×2 (08:21→20:40)
[2018-03-26] MEDS: OSELTAMIVIR PHOSPHATE 30 MG/5 ML SUSPENSION UD PO SCH ×2 (09:00→21:07)
[2018-03-26] MEDS: CEFUROXIME 250 MG TAB PO SCH ×2 (09:00→21:06)
[2018-03-26] MEDS: PREGABALIN 150 MG CAP PO SCH ×2 (09:00→21:05)
[2018-03-26] MEDS: FLUOXETINE 20 MG CAP PO SCH (10:17)
[2018-03-26] MEDS: SPIRONOLACTONE 25 MG TABLET PO SCH ×2 (10:18→21:06)
[2018-03-26] MEDS: AMLODIPINE 10 MG TAB PO SCH (10:18)
[2018-03-26] MEDS: LOSARTAN POTASSIUM 50 MG TABLET PO SCH (10:18)
[2018-03-26] MEDS: predniSONE 20 MG TAB PO SCH ×2 (10:19→21:06)
[2018-03-26] MEDS: ENOXAPARIN 40 MG/0.4 ML SQ SCH (17:36)
[2018-03-26] MEDS: NA CHLORIDE 0.9% 1,000 ML IV SCH (17:38)
[2018-03-26] MEDS: ATORVASTATIN 20 MG TAB PO SCH (21:06)
[2018-03-26] MEDS: ASPIRIN EC 81 MG TAB PO SCH (21:13)
[2018-03-27] MEDS: HYDROCODONE/CHLORPHEN 5 ML/OSYR PO PRN ×2 (00:06→11:12)
[2018-03-27] MEDS: IPRATROPIUM BROM 0.5MG/2.5ML NEB SCH ×3 (01:59→13:11)
[2018-03-27] MEDS: ONDANSETRON 4 MG/2 ML VIAL IV PRN (03:32)
[2018-03-27] MEDS: PANTOPRAZOLE 40MG TABLET PO SCH (05:15)
[2018-03-27] MEDS: INSULIN -REGULAR HUMAN 50 UNIT/0.5 ML ML SQ SCH ×2 (07:30→11:30)
[2018-03-27] MEDS: ARFORMOTEROL TARTRATE 15 MCG/2 ML VIAL.NEB NEB SCH (07:54)
--- NOTE | 2018-03-27 09:25 | DS ---
Addendum: It is worth mentioning that the patient's room air pulse oximetry at rest was 88%, so she needs home O2 at 2 L oxygen nasal prong as her saturation goes up to 97 when she uses that and we liam l follow the patient up. LÁZARO/VIJAY Voice ID: [id number] Report ID: [id number]
--- NOTE | 2018-03-27 09:25 | DS ---
Addendum: The patient is clinically stable and doing well. However, we are waiting for arrangement for home O2 2 L nasal prong to be arranged for the patient for discharge, we expect that happens toda y and she will be discharged today. LÁZARO/VIJAY Voice ID: [id number] Report ID: [id number]
[2018-03-27] MEDS: LOSARTAN POTASSIUM 50 MG TABLET PO SCH (09:51)
[2018-03-27] MEDS: CEFUROXIME 250 MG TAB PO SCH (09:51)
[2018-03-27] MEDS: SPIRONOLACTONE 25 MG TABLET PO SCH (09:51)
[2018-03-27] MEDS: AMLODIPINE 10 MG TAB PO SCH (09:51)
[2018-03-27] MEDS: predniSONE 20 MG TAB PO SCH (09:51)
[2018-03-27] MEDS: FLUOXETINE 20 MG CAP PO SCH (09:51)
[2018-03-27] MEDS: PREGABALIN 150 MG CAP PO SCH (09:51)
[2018-03-27] MEDS: OSELTAMIVIR PHOSPHATE 30 MG/5 ML SUSPENSION UD PO SCH (09:52)
[2018-03-27 10:46] VITALS: O2SAT 96
[2018-03-27] MEDS: BENZONATATE 100 MG CAP PO PRN (14:18)
[2018-03-27 15:17] VITALS: BP 144/65; TEMP 97.2
[2018-03-27] MEDS: ENOXAPARIN 40 MG/0.4 ML SQ SCH (16:23)
== END 2018-03-27 17:30 | disposition home or self-care (01) | DRG 190 ==
LOC: ER 18:53 → ERHOLD 20:39 → 2ND 21:32
PROVIDERS: ADMIT Internal Medicine; ATTEND Internal Medicine
PROC: 5A09457 Assistance with Respiratory Ventilation, 24-96 Consecutive Hours, Continuous Positive Airway Pressure (ICD-10-PCS; principal; 2018-03-20)
DX: J44.0 Chronic obstructive pulmonary disease with (acute) lower respiratory infection (principal); J09.X1 Influenza due to identified novel influenza A virus with pneumonia; J96.01 Acute respiratory failure with hypoxia; J44.1 Chronic obstructive pulmonary disease with (acute) exacerbation; E11.9 Type 2 diabetes mellitus without complications; Z79.84 Long term (current) use of oral hypoglycemic drugs; Z86.73 Personal history of transient ischemic attack (TIA), and cerebral infarction without residual deficits; Z85.3 Personal history of malignant neoplasm of breast; Z85.41 Personal history of malignant neoplasm of cervix uteri; F32.9 Major depressive disorder, single episode, unspecified; F41.9 Anxiety disorder, unspecified; I10 Essential (primary) hypertension
CPT/HCPCS: 36415; 71045; 71250; 74176; 78582; 80048; 80076; 81003; 81015; 82550; 82553; 82805; 82962; 83605; 83690; 83735; 83880; 84100; 84132; 84145; 84484; 85025; 85610; 85730; 87040; 87086; 87088; 87804; 93005; 93306; 94660; 94760; 96365; 96375; 97116; 97163; 97530; 99285; A9540; A9558; G9035; J0456; J0696; J1650; J1940; J2405; J2920; J2930; J7030; J7512; J7605

== ENCOUNTER 2018-11-29 09:39 | Emergency (ER) | payer OTHER ==
[2018-11-29 10:44] LABS: Absolute Lymphocytes (CBC) 2.6 K/uL (0.7-4.9); Basophils % 1.1 % (0-1.3); Hematocrit 33.8 % (36.0-45.0); Lymphocytes % 35.3 % (15.3-44.8); MPV 8.3 fL (7.6-11.3); RBC Red Blood Cell Count 4.01 M/uL (3.86-4.86)
[2018-11-29 10:46] LABS: Urine Blood NEGATIVE (NEG); Urine Glucose NEGATIVE (NEG); Urine Protein NEGATIVE (NEG); Urine Specific Gravity 1.015 (1.005-1.030); Urine pH 5.5 (5.0-7.0)
[2018-11-29 11:00] LABS: ALT/SGPT 25 U/L (12-78); AST/SGOT 13 U/L (15-37); Albumin 3.6 g/dL (3.4-5.0); Alkaline Phosphatase 116 U/L (45-117); BUN Blood Urea Nitrogen 16 mg/dL (7-18); Bicarbonate 26 mmol/L (21-32); Bilirubin Direct < 0.1 mg/dL (0-0.2); Bilirubin Total 0.3 mg/dL (0.2-1.0); Glucose Level 92 mg/dL (74-106); Lipase 112 U/L (73-393); Potassium 4.2 mmol/L (3.5-5.1); Protein, Total 7.3 g/dL (6.4-8.2); Sodium Level 142 mmol/L (136-145)
--- NOTE | 2018-11-29 11:11 | RAD REPORT ---
EXAM DESCRIPTION: CT - Stone Protocol - 11/29/2018 10:43 am CLINICAL HISTORY: Abdominal pain. Right flank pain COMPARISON: 2018 TECHNIQUE: Computed axial tomography of the abdomen pelvis was obtained without oral or IV contrast. Lack of IV and oral contrast limits evaluation of solid organs, bowel, and vessels. Coronal reformat feliz images were obtained and reviewed. All CT scans are performed using dose optimization technique as appropriate and may include automated exposure control or mA/KV adjustment according to patient size. FINDINGS: A renal calculus is not seen. An ureteral calculus is not noted. A bladder calculus is not present. No hydronephrosis. 16 millimeter low-density right renal mass. Renal cortical thinning likely related to prior inflammat ion A small hepatic cyst Spleen, pancreas and adrenals appear grossly normal There is no evidence of diverticulitis. Hysterectomy. Small hiatal hernia. Small umbilical hernia No ascites. Moderate amount of stool in the colon IMPRESSION: Negative for a genitourinary calculus 16 millimeter low-density right renal mass is nonspecific without IV contrast probably a cyst. A foll owup renal ultrasound in 3 months recommended for re-evaluation
[2018-11-29 11:15] LABS: Urine Bacteria >50 /HPF (<20); Urine Culture Reflex Order NOT NEEDED; Urine RBC <5 /HPF (NONE SEEN)
[2018-11-29] MEDS ORDERED: ONDANSETRON 4 MG/2 ML VIAL ONE (11:29)
[2018-11-29] MEDS ORDERED: FAMOTIDINE 20 MG/2 ML VIAL IV ONE (11:29)
[2018-11-29] MEDS ORDERED: CEFTRIAXONE/SWI 1gm 1 GM/10 ML SYR ONE (11:29)
[2018-11-29] MEDS ORDERED: MORPHINE 2 MG/ML SYR ONE (11:29)
[2018-11-29] MEDS ORDERED: NA CHLORIDE 0.9% 1,000 ML ONE (11:29)
--- NOTE | 2018-11-29 12:46 | ER ---
Nurse's Notes [facility] Name: Kiley Ortega Age: 73 yrs Sex: Female : 1945 Arrival Date: 11/29/2018 Time: 09:41 Bed 13 Private MD: Shivani Anguiano F Diagnosis: Urinary tract infection, site not specified Presentation: 11/29 09:43 Presenting complaint: Patient states: C/o right flank pain that radiates to the right rb1 upper quadrant. Pain started two weeks ago but has increased the last 2 days. 09:43 Acuity: SHELLEY 3 rb1 09:43 Transition of care: patient was not received from another setting of care. Onset of rb1 symptoms was November 27, 2018. Risk Assessment: Do you want to hurt yourself or someone else? Patient reports no desire to harm self or others. Initial Sepsis Screen: Does the patient meet any 2 criteria? No. Patient's initial sepsis screen is negative. Does the patient have a suspected source of infection? No. Patient's initial sepsis screen is negative. Care prior to arrival: None. 09:43 Method Of Arrival: Ambulatory rb1 09:43 Onset of symptoms was November 27, 2018. rb1 Triage Assessment: 09:43 General: Appears uncomfortable, Behavior is calm, cooperative, Denies fever. Pain: rb1 Complains of pain in right mid back Pain radiates to right upper quadrant Pain currently is 10 out of 10 on a pain scale. Pain began x 2 weeks. Neuro: Level of Consciousness is awake, alert, obeys commands, Oriented to person, place, time, situation. Cardiovascular: Capillary refill < 3 seconds is brisk in bilateral fingers. Respiratory: Airway is patent Respiratory effort is even, unlabored, Respiratory pattern is regular, symmetrical. GI: Reports nausea, vomiting, since x 2 days. : Reports pain with urination. Derm: Skin is pink, warm \T\ dry. Musculoskeletal: Range of motion: intact in all extremities. Historical: - Allergies: 09:43 Iodinated Contrast Media - IV Dye; rb1 09:43 Tegretol; rb1 - Home Meds: 09:43 amlodipine 10 mg oral tab [Active]; aspirin 81 mg Oral TbEC 1 tab once daily [Active]; rb1 fluxetine 40 mg once daily [Active]; metformin 500 mg oral tab 2 tabs 2 times per day [Active]; losartan 100 mg Oral tab 1 tab once daily for Hypertension [Active]; omeprazole 40 mg Oral cpDR 1 cap once daily [Active]; tylenol 500 mg twice a day [Active]; Benadryl 25 mg Oral cap 1 cap twice a day [Active]; atorvastatin 20 mg oral tab 1 tab once daily [Active]; pregabalin 300 mg Oral 1 cap 2 times per day [Active]; - PMHx: 09:43 COPD; Diabetes - NIDDM; Hypertension; TIA; breast cancer-right side; cervical cancer; rb1 Neuropathy; Myopathy; - PSHx: :43 Hysterectomy; Lumpectomy; cataract; Bladder suspension; rb1 - Immunization history:: Adult Immunizations up to date. - Social history:: Smoking status: Patient/guardian denies using tobacco. - Ebola Screening: : Patient negative for fever greater than or equal to 101.5 degrees Fahrenheit, and additional compatible Ebola Virus Disease symptoms. Screenin:43 Abuse screen: Denies threats or abuse. Nutritional screening: No deficits noted. rb1 Tuberculosis screening: No symptoms or risk factors identified. Fall Risk None identified. Assessment: :43 General: See triage assessment. rb1 10:36 Reassessment: Pt. went to CT. rb1 11:30 Reassessment: Patient appears in no apparent distress at this time. Patient and/or rb1 family updated on plan of care and expected duration. Pain level reassessed. Patient is alert, oriented x 3, equal unlabored respirations, skin warm/dry/pink. 12:10 Reassessment: Patient appears in no apparent distress at this time. No changes from rb1 previously documented assessment. 13:00 Reassessment: Discharge pending due to transportation home. rb1 13:19 Reassessment: Patient appears in no apparent distress at this time. Patient and/or rb1 family updated on plan of care and expected duration. Pain level reassessed. Patient is alert, oriented x 3, equal unlabored respirations, skin warm/dry/pink. Pt. was able to reach her son for transportation, he is coming to pick her up. Vital Signs: 09:43 BP 152 / 68; Pulse 84; Resp 17; Temp 97.8(O); Pulse Ox 95% on R/A; Weight 87.09 kg (R); rb1 Height 5 ft. 2 in. (157.48 cm) (R); Pain 10/10; 11:47 BP 133 / 57; Pulse 78; Resp 16; Temp 97.5(O); Pulse Ox 100% on R/A; mh5 12:45 BP 138 / 59; Pulse 79; Resp 16; Pulse Ox 99% on R/A; rb1 13:19 BP 134 / 62; Pulse 81; Resp 17; Temp 98.0(O); Pulse Ox 100% on R/A; Pain 6/10; rb1 09:43 Body Mass Index 35.12 (87.09 kg, 157.48 cm) rb1 ED Course: 09:41 Patient arrived in ED. as 09:42 Shivani Anguiano MD is Private Physician. as 09:43 Arm band placed on right wrist. rb1 09:44 Eze Cordova PA is PHCP. cp 09:50 Kervin Huffman MD is Attending Physician. cp 10:05 Urine collected: clean catch specimen, clear. 5 10:05 Patient has correct armband on for positive identification. Bed in low position. Call [facility] light in reach. Side rails up X 1. Adult w/ patient. Warm blanket given. Pulse ox on. NIBP on. 10:06 Janie Sorenson, RN is Primary Nurse. rb1 10:41 CT completed. Patient tolerated procedure well. Patient moved to MRI. bq 10:43 CT Stone Protocol In Process Unspecified. EDMS 10:48 XRAY Chest (1 view) In Process Unspecified. EDMS 11:35 Inserted saline lock: 22 gauge in left forearm, using aseptic technique. ,using aseptic rb1 technique. IV inserted by JC Sweeney Blood collected. 12:10 Ultrasound completed. Patient tolerated well. sg3 12:13 US Abdomen Limited In Process Unspecified. EDMS 13:40 No provider procedures requiring assistance completed. IV discontinued, intact, rb1 bleeding controlled, No redness/swelling at site. Pressure dressing applied. 14:12 Triage completed. rb1 Administered Medications: 11:40 Drug: Rocephin 1 grams Route: IV; Rate: bolus; Site: left forearm; rb1 11:40 Drug: NS 0.9% 250 ml Route: IV; Rate: bolus; Site: left forearm; rb1 12:08 Follow up: IV Status: Completed infusion rb1 11:40 Drug: Zofran 4 mg Route: IVP; Site: left forearm; rb1 11:40 Drug: Pepcid 20 mg Route: IVP; Site: left forearm; rb1 11:40 Drug: morphine 2 mg Route: IVP; Site: left forearm; rb1 12:08 Drug: NS 0.9% 1000 ml Route: IV; Rate: 100 ml/hr; Site: left forearm; rb1 13:06 Drug: TORadol - Ketorolac 15 mg Route: IVP; Site: left forearm; rb1 Outcome: 12:46 Discharge ordered by . cp 13:40 Patient left the ED. rb1 13:40 Discharged to home ambulatory, with family. rb1 13:40 Condition: stable 13:40 Discharge instructions given to patient, Instructed on discharge instructions, follow up and referral plans. medication usage, Demonstrated understanding of instructions, follow-up care, medications, Prescriptions given X 3. Addendum: 12/02/2018 16:16 Addendum: Culture Results: Positive urine culture. Bacteria is resistant to, has s s intermediate sensitivity, or is not tested against prescribed antibiotics. Report given to BREN for further evaluation and then to [facility] for follow up with patient. Phone call Attempt #1 spoke with patient who reports that her symptoms have not improved. Patient verbalizes understanding to stop taking Augmentin and to begin taking Bactrim DS 1 tab PO BID x 7 days as recommended by JENNIFER Graham. Rx called in [facility]. Signatures: Dispatcher [employer] EDMS Humaira Carrera Amelia as Smirch, Shelby, RN RN ss Page, Corey, PA PA cp Barber, Rebecca RN Venice Meeks Sarah sg3 Corrections: (The following items were deleted from the chart) 11/29 11:58 11:47 BP 100 / ???; Pulse 78bpm; Resp 16bpm; Pulse Ox 100% RA; Temp 97.5F Oral; mh5 5 14:13 14:07 Patient left the ED. rb1 rb1
--- NOTE | 2018-11-29 12:47 | EDPHYS ---
Physician Documentation [facility] Name: Kiley Ortega Age: 73 yrs Sex: Female : 1945 Arrival Date: 11/29/2018 Time: 09:41 Bed 13 Private MD: Shivani Anguiano F ED Physician Kervin Huffman HPI: 11/29 10:10 This 73 yrs old Female presents to ER via Unassigned with complaints of Back cp Pain, Vomiting. 10:10 The patient presents with pain that is acute, with no known mechanism of injury. The cp symptoms are located in the right mid back. Onset: The symptoms/episode began/occurred 2 week(s) ago. The pain radiates to the abdomen. 10:10 Associated signs and symptoms: Pertinent positives: fever, nausea, Pertinent negatives: cp chest pain, constipation, dysuria, incontinence, urinary retention, vomiting, weakness. Historical: - Allergies: 09:43 Iodinated Contrast Media - IV Dye; rb1 09:43 Tegretol; rb1 - Home Meds: 09:43 amlodipine 10 mg oral tab [Active]; aspirin 81 mg Oral TbEC 1 tab once daily [Active]; rb1 fluxetine 40 mg once daily [Active]; metformin 500 mg oral tab 2 tabs 2 times per day [Active]; losartan 100 mg Oral tab 1 tab once daily for Hypertension [Active]; omeprazole 40 mg Oral cpDR 1 cap once daily [Active]; tylenol 500 mg twice a day [Active]; Benadryl 25 mg Oral cap 1 cap twice a day [Active]; atorvastatin 20 mg oral tab 1 tab once daily [Active]; pregabalin 300 mg Oral 1 cap 2 times per day [Active]; - PMHx: 09:43 COPD; Diabetes - NIDDM; Hypertension; TIA; breast cancer-right side; cervical cancer; rb1 Neuropathy; Myopathy; - PSHx: 09:43 Hysterectomy; Lumpectomy; cataract; Bladder suspension; rb1 - Immunization history:: Adult Immunizations up to date. - Social history:: Smoking status: Patient/guardian denies using tobacco. - Ebola Screening: : Patient negative for fever greater than or equal to 101.5 degrees Fahrenheit, and additional compatible Ebola Virus Disease symptoms. ROS: 10:15 Constitutional: Negative for body aches, chills, fever, poor PO intake. cp 10:15 Eyes: Negative for injury, pain, redness, and discharge. cp 10:15 ENT: Negative for drainage from ear(s), ear pain, sore throat, difficulty swallowing, difficulty handling secretions. 10:15 Cardiovascular: Negative for chest pain, edema, palpitations. 10:15 Respiratory: Negative for cough, shortness of breath, wheezing. 10:15 Abdomen/GI: Positive for abdominal pain, nausea and vomiting, Negative for diarrhea, constipation, anorexia, black/tarry stool, rectal bleeding. 10:15 Back: Positive for pain at rest, pain with movement, of the right mid back, Negative for injury or acute deformity. 10:15 : Negative for urinary symptoms. 10:15 Skin: Negative for rash. 10:15 Neuro: Negative for altered mental status, headache, numbness, weakness. 10:15 All other systems are negative. Exam: 10:20 Constitutional: The patient appears in no acute distress, alert, awake, cp non-diaphoretic, non-toxic, well developed, well nourished, uncomfortable. 10:20 Head/Face: Normocephalic, atraumatic. cp 10:20 Eyes: Periorbital structures: appear normal, Conjunctiva: normal, no exudate, no injection, Sclera: no appreciated abnormality, Lids and lashes: appear normal, bilaterally. 10:20 ENT: External ear(s): are unremarkable, Nose: is normal, Mouth: Lips: moist, Oral mucosa: pink and intact, moist, Posterior pharynx: Airway: no evidence of obstruction, patent. 10:20 Chest/axilla: Inspection: normal, Palpation: is normal, no crepitus, no tenderness. 10:20 Cardiovascular: Rate: normal, Rhythm: regular, Edema: is not appreciated, JVD: is not appreciated. 10:20 Respiratory: the patient does not display signs of respiratory distress, Respirations: labored breathing, is not present, shallow respirations, that is mild, Breath sounds: are clear throughout, no decreased breath sounds, no stridor, no wheezing. 10:20 Abdomen/GI: Inspection: abdomen appears normal, Bowel sounds: active, all quadrants, Palpation: soft, in all quadrants, moderate abdominal tenderness, in the epigastric area and right upper quadrant, rebound tenderness, is not appreciated, involuntary guarding, is not appreciated. 10:20 Back: pain, that is moderate, of the right mid back, ROM is painful, with all movement. 10:20 Skin: no rash present. 10:20 Neuro: Orientation: to person, place \T\ time. Mentation: is normal, Cerebellar function: is grossly normal, Motor: moves all fours, strength is normal, Sensation: is normal, Gait: is steady. Vital Signs: 09:43 BP 152 / 68; Pulse 84; Resp 17; Temp 97.8(O); Pulse Ox 95% on R/A; Weight 87.09 kg (R); rb1 Height 5 ft. 2 in. (157.48 cm) (R); Pain 10/10; 11:47 BP 133 / 57; Pulse 78; Resp 16; Temp 97.5(O); Pulse Ox 100% on R/A; mh5 12:45 BP 138 / 59; Pulse 79; Resp 16; Pulse Ox 99% on R/A; rb1 13:19 BP 134 / 62; Pulse 81; Resp 17; Temp 98.0(O); Pulse Ox 100% on R/A; Pain 6/10; rb1 09:43 Body Mass Index 35.12 (87.09 kg, 157.48 cm) rb1 MDM: 09:50 Patient medically screened. cp 12:45 Data reviewed: vital signs, nurses notes, lab test result(s), radiologic studies, CT cp scan, ultrasound. 12:45 Differential diagnosis: Ureterolithiasis UTI, cholelithiasis, pancreatitis, cp appendicitis. Test interpretation: by ED physician or midlevel provider: plain radiologic studies. Counseling: I had a detailed discussion with the patient and/or guardian regarding: the historical points, exam findings, and any diagnostic results supporting the discharge/admit diagnosis, lab results, radiology results, to return to the emergency department if symptoms worsen or persist or if there are any questions or concerns that arise at home. Response to treatment: the patient's symptoms have markedly improved after treatment. ED course: VSS. Pain improved with meds. Will discharge to home for continued monitoring. 11/29 10:06 Order name: Basic Metabolic Panel; Complete Time: 11:07 cp 11/29 11:07 Interpretation: Normal except: CL 108; GFR 64. cp 11/29 10:06 Order name: CBC with Diff; Complete Time: 11:07 cp 11/29 10:06 Order name: Creatinine for Radiology; Complete Time: 11:07 cp 11/29 10:06 Order name: Hepatic Function; Complete Time: 11:07 cp 11/29 10:06 Order name: Lipase; Complete Time: 11:07 cp 11/29 10:06 Order name: Urine Microscopic Only; Complete Time: 11:18 cp 11/29 11:18 Interpretation: Normal except: UWBC 5-10; UBACT >50; SQEPI 10-20. cp 11/29 10:06 Order name: XRAY Chest (1 view); Complete Time: 13:16 cp 11/29 10:06 Order name: Urine Culture cp 11/29 10:21 Order name: Urine Dipstick--Ancillary (enter results); Complete Time: 11:07 bd 11/29 10:23 Order name: US Abdomen Limited; Complete Time: 13:16 cp 11/29 10:23 Order name: CT Stone Protocol; Complete Time: 11:18 cp 11/29 10:06 Order name: IV Saline Lock; Complete Time: 12:03 cp 11/29 10:06 Order name: Labs collected and sent; Complete Time: 12:03 cp 11/29 10:06 Order name: Urine Dipstick-Ancillary (obtain specimen); Complete Time: 12:03 cp 11/29 10:23 Order name: NPO; Complete Time: 12:02 cp 11/29 12:42 Order name: PO challenge; Complete Time: 13:06 cp Administered Medications: 11:40 Drug: Rocephin 1 grams Route: IV; Rate: bolus; Site: left forearm; rb1 11:40 Drug: NS 0.9% 250 ml Route: IV; Rate: bolus; Site: left forearm; rb1 12:08 Follow up: IV Status: Completed infusion rb1 11:40 Drug: Zofran 4 mg Route: IVP; Site: left forearm; rb1 11:40 Drug: Pepcid 20 mg Route: IVP; Site: left forearm; rb1 11:40 Drug: morphine 2 mg Route: IVP; Site: left forearm; rb1 12:08 Drug: NS 0.9% 1000 ml Route: IV; Rate: 100 ml/hr; Site: left forearm; rb1 13:06 Drug: TORadol - Ketorolac 15 mg Route: IVP; Site: left forearm; rb1 Disposition: 11/29/18 12:46 Discharged to Home. Impression: Urinary tract infection, site not specified. - Condition is Stable. - Discharge Instructions: Urinary Tract Infection, Adult. - Prescriptions for Augmentin 875- 125 mg Oral Tablet - take 1 tablet by ORAL route every 12 hours for 7 days; 14 tablet. Zofran 4 mg Oral Tablet - take 1 tablet by ORAL route every 12 hours As needed; 20 tablet. Ibuprofen 800 mg Oral Tablet - take 1 tablet by ORAL route every 8 hours As needed take with food; 30 tablet. - Medication Reconciliation Form, Thank You Letter, Antibiotic Education, Prescription Opioid Use form. - Follow up: Private Physician; When: 1 - 2 days; Reason: Recheck today's complaints. - Problem is new. - Symptoms have improved. Signatures: Dispatcher [employer] EDMS Eze Cordova PA PA cp Barber, Rebecca RN RN rb1 Corrections: (The following items were deleted from the chart) 14:07 12:46 11/29/2018 12:46 Discharged to Home. Impression: Urinary tract infection, site rb1 not specified. Condition is Stable. Forms are Medication Reconciliation Form, Thank You Letter, Antibiotic Education, Prescription Opioid Use. Follow up: Private Physician; When: 1 - 2 days; Reason: Recheck today's complaints. Problem is new. Symptoms have improved. cp
--- NOTE | 2018-11-29 12:51 | RAD REPORT ---
EXAM DESCRIPTION: US - Abdomen Exam Limited - 11/29/2018 12:12 pm CLINICAL HISTORY: Abdominal pain. COMPARISON: 2014 FINDINGS: The gallbladder wall is not thickened. A gallstone is not seen. The biliary tree is normal caliber. IMPRESSION: Unremarkable gallbladder ultrasound.
--- NOTE | 2018-11-29 12:52 | RAD REPORT ---
EXAM DESCRIPTION: Bhavik Single View11/29/2018 10:50 am CLINICAL HISTORY: abd pain COMPARISON: 03/31 FINDINGS: The lungs appear clear of acute infiltrate. The heart is mildly enlarged IMPRESSION: No acute abnormalities displayed
[2018-11-29] MEDS ORDERED: KETOROLAC 30 MG/ML INJ ONE (12:53)
[2018-11-29 14:33] VITALS: BP 133/57; TEMP 97.5; O2SAT 100
== END 2018-11-29 14:07 | disposition home or self-care (01) ==
LOC: ER 09:39
DX: N39.0 Urinary tract infection, site not specified (principal); I10 Essential (primary) hypertension; E11.9 Type 2 diabetes mellitus without complications; J44.9 Chronic obstructive pulmonary disease, unspecified; Z79.82 Long term (current) use of aspirin; Z85.3 Personal history of malignant neoplasm of breast; Z85.41 Personal history of malignant neoplasm of cervix uteri; Z88.8 Allergy status to other drugs, medicaments and biological substances; Z91.041 Radiographic dye allergy status
CPT/HCPCS: 96365; 87088; 85025; 87086; 80048; 36415; 80076; 83690; 76377; 74176; 71045; 76705; 96375; 99284; J2270; J0696; J7030; J2405; 81003; 81015; 87077; 87186; 96361; 96374

== ENCOUNTER 2018-12-06 18:51 | Inpatient (IN) | payer OTHER ==
[2018-12-06] MEDS ORDERED: ALBUTEROL 2.5 MG/3 ML NEB SOL ONE (19:22)
[2018-12-06] MEDS ORDERED: IPRATROPIUM BROM 0.5MG/2.5ML ONE (19:23)
--- NOTE | 2018-12-06 19:48 | RAD REPORT ---
EXAM DESCRIPTION: RAD - Chest Single View - 12/06/2018 7:37 pm CLINICAL HISTORY: DYSPNEA Chest pain. COMPARISON: Chest Single View dated 11/29/2018; Chest Single View dated 03/22/2018; Chest Single View dated 03/20/2018; Chest Single View dated 03/18/2018 FINDINGS: Portable technique limits examination quality. Mild to moderate pulmonary edema is suspected. The heart is moderately enlarged in size. No displaced fractures. IMPRESSION: Mild to moderate CHF.
[2018-12-06 20:17] LABS: Absolute Lymphocytes (CBC) 5.1 K/uL (0.7-4.9); Basophils % 0.2 % (0-1.3); Hematocrit 31.9 % (36.0-45.0); Lymphocytes % 38.3 % (15.3-44.8); MPV 8.6 fL (7.6-11.3); RBC Red Blood Cell Count 3.77 M/uL (3.86-4.86)
[2018-12-06 20:21] LABS: Protime INR 0.92
[2018-12-06 20:36] LABS: ALT/SGPT 24 U/L (12-78); AST/SGOT 15 U/L (15-37); Albumin 3.5 g/dL (3.4-5.0); Alkaline Phosphatase 99 U/L (45-117); BUN Blood Urea Nitrogen 16 mg/dL (7-18); Bicarbonate 24 mmol/L (21-32); Bilirubin Direct < 0.1 mg/dL (0-0.2); Bilirubin Total 0.2 mg/dL (0.2-1.0); CKMB Creatine Kinase MB < 1.0 ng/mL (0.3-3.6); Creatine Phosphokinase 34 U/L (26-192); Glucose Level 143 mg/dL (74-106); Lipase 92 U/L (73-393); Magnesium 1.5 mg/dL (1.8-2.4); NT PRO-BNP 555 pg/mL (<125); Potassium 3.4 mmol/L (3.5-5.1); Sodium Level 141 mmol/L (136-145); Troponin (Emerg Dept Use Only) < 0.02 ng/mL (0.0-0.045)
[2018-12-06] MEDS ORDERED: FUROSEMIDE 40 MG/4 ML VIAL ONE (20:39)
[2018-12-06 20:42] LABS: Urine Blood NEGATIVE (NEG); Urine Glucose NEGATIVE (NEG); Urine Protein NEGATIVE (NEG); Urine Specific Gravity >1.030 (1.005-1.030); Urine pH 5.5 (5.0-7.0)
--- NOTE | 2018-12-06 20:54 | ER ---
Nurse's Notes [facility] Name: Kiley Ortega Age: 73 yrs Sex: Female : 1945 Arrival Date: 12/06/2018 Time: 18:54 Bed 13 Private MD: Diagnosis: Unspecified combined systolic (congestive) and diastolic (congestive) heart failure;Chronic obstructive pulmonary disease with (acute) exacerbation Presentation: 12/06 18:57 Presenting complaint: Patient states: Shortness of breath that started this afternoon. aj1 Reports that she had a cough that started last night. Reports fever of 101 at home. Patient reports that she took Tylenol for fever at 1800. Transition of care: patient was not received from another setting of care. Onset of symptoms was December 06, 2018. Risk Assessment: Do you want to hurt yourself or someone else? Patient reports no desire to harm self or others. Initial Sepsis Screen: Does the patient meet any 2 criteria? No. Patient's initial sepsis screen is negative. Does the patient have a suspected source of infection? Yes: Productive cough/pneumonia. Care prior to arrival: None. 18:57 Method Of Arrival: [facility] 18:57 Acuity: SHELLEY 3 aj1 Triage Assessment: 19:00 General: Appears in no apparent distress. uncomfortable, Behavior is cooperative, aj1 anxious. Pain: Complains of pain in back Pain currently is 10 out of 10 on a pain scale. Neuro: Level of Consciousness is awake, alert, obeys commands. Cardiovascular: Patient's skin is warm and dry. Respiratory: Reports shortness of breath cough that is productive, Airway is patent Respiratory effort is even, unlabored, Respiratory pattern is regular, symmetrical, Onset: The symptoms/episode began/occurred today, the patient has mild shortness of breath. Historical: - Allergies: 19:00 Iodinated Contrast Media - IV Dye; aj1 19:00 Tegretol; aj1 - Home Meds: 19:00 amlodipine 10 mg tab for Hypertension [Active]; aspirin 81 mg Oral TbEC 1 tab once aj1 daily [Active]; atorvastatin 20 mg Oral tab 1 tab once daily [Active]; Benadryl 25 mg Oral cap 1 cap twice a day [Active]; fluxetine 40 mg once daily [Active]; Glimepiride Oral [Active]; Insulin: Humalog Sub-Q [Active]; Januvia Oral [Active]; losartan 100 mg Oral tab 1 tab once daily for Hypertension [Active]; Lyrica 300mg Oral 1 cap 2 times per day for Diabetic Peripheral Neuropathy [Active]; metformin 500 mg Oral tab 2 tabs 2 times per day for Type 2 Diabetes Mellitus [Active]; omeprazole 40 mg Oral cpDR 1 cap once daily for Gastroesophageal reflux [Active]; omeprazole 40 mg Oral cpDR 1 cap once daily [Active]; pregabalin 300 mg Oral 1 cap 2 times per day [Active]; tylenol 500 mg twice a day [Active]; - PMHx: 19:00 breast cancer-right side; cervical cancer; COPD; Diabetes - NIDDM; Hypertension; aj1 Myopathy; neuropathy; TIA; - Immunization history:: Flu vaccine is not up to date. - Social history:: Smoking status: Patient/guardian denies using tobacco. - Ebola Screening: : Patient denies travel to an Ebola-affected area in the 21 days before illness onset. Screenin:15 Abuse screen: Denies threats or abuse. Denies injuries from another. Nutritional aa1 screening: No deficits noted. Tuberculosis screening: No symptoms or risk factors identified. Fall Risk None identified. Assessment: 19:15 General: Appears in no apparent distress. comfortable, Behavior is calm, cooperative, aa1 appropriate for age. Pain: Complains of pain in back. Neuro: Level of Consciousness is awake, alert, obeys commands, Oriented to person, place, time, situation, Moves all extremities. Speech is normal. Cardiovascular: Denies chest pain, diaphoresis, palpitations, Heart tones S1 S2 present Capillary refill < 3 seconds Clubbing of nail beds is absent JVD is absent Patient's skin is warm and dry. Rhythm is regular. Respiratory: Reports shortness of breath at rest Airway is patent Respiratory effort is pursed lip, Respiratory pattern is tachypnea Breath sounds with wheezes bilaterally. the patient has moderate shortness of breath. GI: No signs and/or symptoms were reported involving the gastrointestinal system. : No signs and/or symptoms were reported regarding the genitourinary system. EENT: No signs and/or symptoms were reported regarding the EENT system. Derm: Skin is intact, is healthy with good turgor, Skin is pink, warm \T\ dry. Musculoskeletal: Circulation, motion, and sensation intact. Capillary refill < 3 seconds. 20:24 Reassessment: Patient appears in no apparent distress at this time. Patient and/or aa1 family updated on plan of care and expected duration. Pain level reassessed. Patient is alert, oriented x 3, equal unlabored respirations, skin warm/dry/pink. Awaiting lab results Patient states feeling better. 22:49 Reassessment: Patient appears in no apparent distress at this time. Patient and/or aa1 family updated on plan of care and expected duration. Pain level reassessed. Patient is alert, oriented x 3, equal unlabored respirations, skin warm/dry/pink. Attempted to call report; nurse will call back. 23:10 Reassessment: Patient appears in no apparent distress at this time. Patient is alert, aa1 oriented x 3, equal unlabored respirations, skin warm/dry/pink. Report given to 4th floor Patient denies pain at this time. Patient states feeling better. Vital Signs: 19:00 BP 149 / 70; Pulse 108; Resp 24; Temp 99.3; Pulse Ox 94% on R/A; Weight 86.18 kg (R); aj1 Height 5 ft. 2 in. (157.48 cm) (R); Pain 10/10; 19:37 BP 136 / 56; Pulse 96; Resp 22; Pulse Ox 100% on Nebulizer Mask; aa1 20:24 BP 137 / 58; Pulse 91; Resp 22; Temp 99.1; Pulse Ox 98% on R/A; Pain 0/10; aa1 22:49 BP 142 / 55; Pulse 92; Resp 22; Temp 99.0; Pulse Ox 96% on R/A; Pain 0/10; aa1 19:00 Body Mass Index 34.75 (86.18 kg, 157.48 cm) aj1 ED Course: 18:54 Patient arrived in ED. mr 18:58 Triage completed. aj1 19:00 Arm band placed on Patient placed in an exam room. aj1 19:07 Masoud Newberry MD is Attending Physician. tw4 19:08 Tracy Turcios, YUNIOR is Primary Nurse. aa1 19:15 Patient has correct armband on for positive identification. Placed in gown. Bed in low aa1 position. Call light in reach. Side rails up X2. monitor technician on. Pulse ox on. NIBP on. Warm blanket given. 19:38 XRAY CXR (1 view) In Process Unspecified. EDMS 19:55 Missed attempt(s): Bleeding controlled, band aid applied, catheter tip intact. bb 20:00 Initial lab(s) drawn, by me, sent to lab. First set of blood cultures drawn by me. bb Inserted saline lock: 18 gauge in left antecubital area, using aseptic technique. Blood collected. 20:52 Erik Feng MD is Hospitalizing Provider. tw4 22:59 No provider procedures requiring assistance completed. Patient admitted, IV remains in aa1 place. Administered Medications: 19:27 Drug: DuoNeb (3:1) (2.5 mg - 0.5 mg) 3 ml Route: Nebulizer; aa1 20:41 Drug: Lasix 40 mg Route: IVP; Site: left antecubital; aa1 20:53 Not Given (Physician Discretion): Benadryl 25 mg IVP once aa1 20:53 Not Given (Physician Discretion): Pepcid 20 mg IVP once aa1 21:05 Drug: Zofran 4 mg Route: IVP; Site: left antecubital; aa1 21:07 Drug: morphine 4 mg Route: IVP; Site: left antecubital; aa1 Outcome: 20:53 Decision to Hospitalize by Provider. tw4 23:10 Admitted to Tele accompanied by tech, via wheelchair, room 412, with chart. aa1 23:10 Condition: good 23:10 Discharge instructions given to patient, family, Instructed on the need for admit, Demonstrated understanding of instructions. 23:26 Patient left the ED. aa1 Signatures: Dispatcher [employer] EDMS Clemencia Nieves RN RN Tracy Anderson RN RN aa1 Melodie Valenzuela Brenda, RN RN bb Wadley, Terrence, MD MD tw4 Corrections: (The following items were deleted from the chart) 23:30 23:10 Discharged to home ambulatory, with family, aa1 aa1 23:30 23:10 Discharge instructions given to family, Instructed on discharge instructions, aa1 follow up and referral plans. Demonstrated understanding of instructions, follow-up care, aa1
--- NOTE | 2018-12-06 20:54 | EDPHYS ---
Physician Documentation [facility] Name: Kiley Ortega Age: 73 yrs Sex: Female : 1945 Arrival Date: 12/06/2018 Time: 18:54 Bed 13 Private MD: ED Physician Masoud Newberry HPI: 12/06 19:22 This 73 yrs old Female presents to ER via Ambulatory with complaints of tw4 Breathing Difficulty. 19:22 The patient has shortness of breath at rest. Onset: The symptoms/episode began/occurred tw4 today. Duration: The symptoms are continuous, and are unchanged since they started. The patient's shortness of breath is aggravated by exertion. Associated signs and symptoms: Pertinent positives: chest pain, non-productive cough. Severity of symptoms: At their worst the symptoms were moderate in the emergency department the symptoms are unchanged. The patient has not experienced similar symptoms in the past. Historical: - Allergies: 19:00 Iodinated Contrast Media - IV Dye; aj1 19:00 Tegretol; aj1 - Home Meds: 19:00 amlodipine 10 mg tab for Hypertension [Active]; aspirin 81 mg Oral TbEC 1 tab once aj1 daily [Active]; atorvastatin 20 mg Oral tab 1 tab once daily [Active]; Benadryl 25 mg Oral cap 1 cap twice a day [Active]; fluxetine 40 mg once daily [Active]; Glimepiride Oral [Active]; Insulin: Humalog Sub-Q [Active]; Januvia Oral [Active]; losartan 100 mg Oral tab 1 tab once daily for Hypertension [Active]; Lyrica 300mg Oral 1 cap 2 times per day for Diabetic Peripheral Neuropathy [Active]; metformin 500 mg Oral tab 2 tabs 2 times per day for Type 2 Diabetes Mellitus [Active]; omeprazole 40 mg Oral cpDR 1 cap once daily for Gastroesophageal reflux [Active]; omeprazole 40 mg Oral cpDR 1 cap once daily [Active]; pregabalin 300 mg Oral 1 cap 2 times per day [Active]; tylenol 500 mg twice a day [Active]; - PMHx: 19:00 breast cancer-right side; cervical cancer; COPD; Diabetes - NIDDM; Hypertension; aj1 Myopathy; neuropathy; TIA; - Immunization history:: Flu vaccine is not up to date. - Social history:: Smoking status: Patient/guardian denies using tobacco. - Ebola Screening: : Patient denies travel to an Ebola-affected area in the 21 days before illness onset. ROS: 19:22 Constitutional: Negative for fever, chills, and weight loss, Eyes: Negative for injury, tw4 pain, redness, and discharge, Abdomen/GI: Negative for abdominal pain, nausea, vomiting, diarrhea, and constipation, Back: Negative for injury and pain, MS/Extremity: Negative for injury and deformity, Skin: Negative for injury, rash, and discoloration, Neuro: Negative for headache, weakness, numbness, tingling, and seizure. 19:22 Cardiovascular: Positive for chest pain, Negative for edema, orthopnea, palpitations, paroxysmal nocturnal dyspnea. 19:22 Respiratory: Positive for cough, with no reported sputum, shortness of breath, Negative for dyspnea on exertion, hemoptysis, orthopnea, pleurisy. Exam: 19:22 Head/Face: Normocephalic, atraumatic. tw4 19:22 Eyes: Pupils equal round and reactive to light, extra-ocular motions intact. Lids and lashes normal. Conjunctiva and sclera are non-icteric and not injected. Cornea within normal limits. Periorbital areas with no swelling, redness, or edema. ENT: Nares patent. No nasal discharge, no septal abnormalities noted. Tympanic membranes are normal and external auditory canals are clear. Oropharynx with no redness, swelling, or masses, exudates, or evidence of obstruction, uvula midline. Mucous membranes moist. Chest/axilla: Normal chest wall appearance and motion. Nontender with no deformity. No lesions are appreciated. Abdomen/GI: Soft, non-tender, with normal bowel sounds. No distension or tympany. No guarding or rebound. No evidence of tenderness throughout. Back: No spinal tenderness. No costovertebral tenderness. Full range of motion. Skin: Warm, dry with normal turgor. Normal color with no rashes, no lesions, and no evidence of cellulitis. MS/ Extremity: Pulses equal, no cyanosis. Neurovascular intact. Full, normal range of motion. 19:22 Constitutional: The patient appears in obvious distress, mildly distressed. 19:22 Respiratory: mild respiratory distress is noted, Respirations: labored breathing, Breath sounds: wheezing: expiratory that is moderate. Vital Signs: 19:00 BP 149 / 70; Pulse 108; Resp 24; Temp 99.3; Pulse Ox 94% on R/A; Weight 86.18 kg (R); aj1 Height 5 ft. 2 in. (157.48 cm) (R); Pain 10/10; 19:37 BP 136 / 56; Pulse 96; Resp 22; Pulse Ox 100% on Nebulizer Mask; aa1 20:24 BP 137 / 58; Pulse 91; Resp 22; Temp 99.1; Pulse Ox 98% on R/A; Pain 0/10; aa1 22:49 BP 142 / 55; Pulse 92; Resp 22; Temp 99.0; Pulse Ox 96% on R/A; Pain 0/10; aa1 19:00 Body Mass Index 34.75 (86.18 kg, 157.48 cm) aj1 MDM: 19:07 Patient medically screened. 12/06 19:08 Order name: Blood Culture Adult (2) 12/06 19:08 Order name: BMP; Complete Time: 20:39 12/06 20:39 Interpretation: Normal except: K 3.4; GLUC 143; GFR 73; CL 109. 12/06 19:08 Order name: CBC with Diff; Complete Time: 20:30 12/06 20:40 Interpretation: Normal except: WBC 13.4; RBC 3.77; HGB 10.1; HCT 31.9; MCH 26.8; MCHC tw4 31.7; RDW 16.5; LYMA 5.1. 12/06 19:08 Order name: Ckmb; Complete Time: 20:39 12/06 20:39 Interpretation: Within normal limits: CKMB < 1.0. 12/06 19:08 Order name: CPK; Complete Time: 20:39 12/06 20:39 Interpretation: Within normal limits: CPK 34. 12/06 19:08 Order name: D-Dimer; Complete Time: 20:39 12/06 20:39 Interpretation: Normal except: D-DIMER 728. 12/06 19:08 Order name: Hepatic Function; Complete Time: 20:39 12/06 20:39 Interpretation: Normal except: A/G 1.0. 12/06 19:08 Order name: Lipase; Complete Time: 20:39 12/06 20:39 Interpretation: Within normal limits: LIP 92. 12/06 19:08 Order name: Magnesium; Complete Time: 20:39 [facility] 12/06 20:39 Interpretation: Abnormal: MG 1.5. 12/06 19:08 Order name: NT PRO-BNP; Complete Time: 20:39 [facility] 12/06 20:39 Interpretation: Abnormal: NT PRO-BNP 555. 12/06 19:08 Order name: PT-INR; Complete Time: 20:39 [facility] 12/06 20:40 Interpretation: Within normal limits: PT 10.9. 12/06 19:08 Order name: Ptt, Activated; Complete Time: 20:39 [facility] 12/06 20:40 Interpretation: Within normal limits: PTT 35.6. 12/06 19:08 Order name: Troponin (emerg Dept Use Only); Complete Time: 20:39 [facility] 12/06 20:40 Interpretation: Within normal limits: TROPED < 0.02. 12/06 20:38 Order name: Urine Dipstick--Ancillary (enter results) 2 12/06 22:33 Order name: CBC with Automated Diff EDMS 12/06 22:34 Order name: CBC with Automated Diff EDMS 12/06 22:34 Order name: Comprehensive Metabolic Panel [facility] 12/06 22:34 Order name: Comprehensive Metabolic Panel [facility] 12/06 22:34 Order name: Lipid Profile [facility] 12/06 22:34 Order name: Lipid Profile [facility] 12/06 22:34 Order name: Magnesium EDMS 12/06 22:34 Order name: Magnesium EDMS 12/06 22:34 Order name: Phosphorus EDMS 12/06 22:34 Order name: Phosphorus EDMS 12/06 22:34 Order name: NT PRO-BNP EDMS 12/06 22:34 Order name: NT PRO-BNP EDMS 12/06 22:34 Order name: Troponin I EDMS 12/06 22:34 Order name: Troponin I EDMS 12/06 22:34 Order name: Troponin I EDMS 12/06 22:34 Order name: Troponin I EDMS 12/06 19:08 Order name: XRAY CXR (1 view); Complete Time: 20:30 [facility] 12/06 19:08 Order name: EKG; Complete Time: 19:09 tw4 12/06 19:08 Order name: Cardiac monitoring; Complete Time: 19:29 tw4 12/06 19:08 Order name: EKG - Nurse/Tech; Complete Time: 19:47 tw4 12/06 19:08 Order name: IV Saline Lock; Complete Time: 20:05 tw4 12/06 19:08 Order name: Labs collected and sent; Complete Time: 20:05 tw4 12/06 19:08 Order name: O2 Per Protocol; Complete Time: 19:28 tw4 12/06 19:08 Order name: O2 Sat Monitoring; Complete Time: 19:28 tw4 12/06 22:33 Order name: CONS Physician Consult EDMS 12/06 22:33 Order name: Echo with Doppler EDMS 12/06 22:33 Order name: EKG Electrocardiogram EDMS 12/06 22:33 Order name: EKG Electrocardiogram EDMS EC:22 Rate is 99 beats/min. Rhythm is regular. QRS [place] is Normal. ND interval is normal. QRS tw4 interval is normal. QT interval is normal. No Q waves. T waves are Normal. No ST changes noted. Clinical impression: Normal ECG. Interpreted by me. Reviewed by me. Administered Medications: 19:27 Drug: DuoNeb (3:1) (2.5 mg - 0.5 mg) 3 ml Route: Nebulizer; aa1 20:41 Drug: Lasix 40 mg Route: IVP; Site: left antecubital; aa1 20:53 Not Given (Physician Discretion): Benadryl 25 mg IVP once aa1 20:53 Not Given (Physician Discretion): Pepcid 20 mg IVP once aa1 21:05 Drug: Zofran 4 mg Route: IVP; Site: left antecubital; aa1 21:07 Drug: morphine 4 mg Route: IVP; Site: left antecubital; aa1 Disposition: 12/06/18 20:53 Hospitalization ordered by Erik Feng for Inpatient Admission. Preliminary diagnosis are Unspecified combined systolic (congestive) and diastolic (congestive) heart failure, Chronic obstructive pulmonary disease with (acute) exacerbation. - Bed requested for Telemetry/MedSurg (Inpatient). - Status is Inpatient Admission. aa1 - Condition is Stable. - Problem is an ongoing problem. - Symptoms have improved. UTI on Admission? No Signatures: Dispatcher [employer] EDNC Clemencia Nieves RN RN aj1 Tracy Turcios RN RN aa1 Chery Garrett RN RN tl1 Masoud Newberry MD MD tw4 Corrections: (The following items were deleted from the chart) 21:04 20:33 Chest For PE Angio+[facility].RAD.[facility]. [facility] 22:47 20:53 Hospitalization Ordered by Erik Feng MD for Inpatient Admission. Preliminary tl1 diagnosis is Unspecified combined systolic (congestive) and diastolic (congestive) heart failure; Chronic obstructive pulmonary disease with (acute) exacerbation. Bed requested for Telemetry/MedSurg (Inpatient). Status is Inpatient Admission. Condition is Stable. Problem is an ongoing problem. Symptoms have improved. UTI on Admission? No. tw4 23:26 22:47 12/06/2018 20:53 Hospitalization Ordered by Erik Feng MD for Inpatient aa1 Admission. Preliminary diagnosis is Unspecified combined systolic (congestive) and diastolic (congestive) heart failure; Chronic obstructive pulmonary disease with (acute) exacerbation. Bed requested for Telemetry/MedSurg (Inpatient). Status is Inpatient Admission. Condition is Stable. Problem is an ongoing problem. Symptoms have improved. UTI on Admission? No. tl1
[2018-12-06] MEDS ORDERED: ONDANSETRON 4 MG/2 ML VIAL ONE (20:59)
[2018-12-06] MEDS ORDERED: MORPHINE 4 MG/ML SYR ONE (20:59)
[2018-12-06] MEDS ORDERED: ONDANSETRON 4 MG/2 ML VIAL IV PRN (22:23)
[2018-12-06] MEDS ORDERED: FUROSEMIDE 40 MG/4 ML VIAL IV SCH (23:00)
[2018-12-06 23:42] VITALS: BMI 34.9
[2018-12-07] MEDS: IPRATROPIUM BROM 0.5MG/2.5ML NEB PRN ×2 (00:20→15:51)
[2018-12-07] MEDS: ARFORMOTEROL TARTRATE 15 MCG/2 ML VIAL.NEB NEB SCH ×3 (00:20→23:00)
[2018-12-07 02:58] LABS: Urine Appearance CLEAR; Urine Bilirubin NEGATIVE (NEG); Urine Blood NEGATIVE (NEG); Urine Color YELLOW; Urine Glucose NEGATIVE (NEG); Urine Microscopic Reflex ORDER UMIC; Urine Protein NEGATIVE (NEG); Urine Urobilinogen 0.2 mg/dL (0.2-1.0); Urine pH 5.5 (5.0-7.0)
[2018-12-07 03:41] LABS: Urine Bacteria <20 /HPF (<20); Urine Culture Reflex Order REFLEXED; Urine RBC <5 /HPF (NONE SEEN)
[2018-12-07] MEDS ORDERED: INFLUENZA VACCINE (for 3y+) 0.5 ML DOSE IMVAC ONE (06:00)
[2018-12-07] MEDS ORDERED: IBUPROFEN 400 MG TAB PO ONE (06:00)
[2018-12-07] MEDS: PANTOPRAZOLE 40MG TABLET PO SCH (06:08)
[2018-12-07 06:23] LABS: Absolute Lymphocytes (CBC) 2.1 K/uL (0.7-4.9); Basophils % 0.5 % (0-1.3); Hematocrit 27.2 % (36.0-45.0); MPV 8.9 fL (7.6-11.3)
[2018-12-07 06:33] LABS: ALT/SGPT 26 U/L (12-78); AST/SGOT 13 U/L (15-37); Albumin 3.1 g/dL (3.4-5.0); Alkaline Phosphatase 103 U/L (45-117); BUN Blood Urea Nitrogen 17 mg/dL (7-18); Bicarbonate 25 mmol/L (21-32); Bilirubin Total 0.3 mg/dL (0.2-1.0); Glucose Level 142 mg/dL (74-106); HDL Cholesterol 61 mg/dL (40-60); LDL Cholesterol, Calculated 77 (<130); Magnesium 1.6 mg/dL (1.8-2.4); NT PRO-BNP 539 pg/mL (<125); Phosphorus 3.9 mg/dL (2.5-4.9); Potassium 3.8 mmol/L (3.5-5.1); Protein, Total 6.7 g/dL (6.4-8.2); Sodium Level 141 mmol/L (136-145); Troponin I < 0.02 ng/mL (0.0-0.045)
--- NOTE | 2018-12-07 07:50 | EKG ---
Test Date: 2018-12-06 Test Time: 19:20:46 Intelligence Intern: CASEY MEASUREMENT RESULTS: Intervals: Rate: 99 MD: 170 QRSD: 70 QT: 350 QTc: 449 [place]: P: 96 MD: 170 QRS: 23 T: 47 INTERPRETIVE STATEMENTS: Normal sinus rhythm Normal ECG Compared to ECG 03/17/2018 19:07:01 Sinus tachycardia no longer present Electronically Signed On 12-07-18 07:49:33 CDT by Ran Torres
--- NOTE | 2018-12-07 07:52 | P.HP ---
Certification for Inpatient Patient admitted to: Inpatient With expected LOS: >2 Midnights Patient will require the following post-hospital care: None Practitioner: I am a practitioner with admitting privileges, knowledge of patient current condition, hospital course, and medical plan of care. Services: Services provided to patient in accordance with Admission requirements found in Title 42 Section 412.3 of the Code of Federal Regulations Patient History Date of Service: 12/06/18 Reason for admission: Shortness of breath History of Present Illness: Patient is a 73-year-old female came to the hospital with difficulty breathing. Patient was feeling short of breath the last few days. Her symptoms gradually worsened. She came into the ER for further evaluation. She was here a few months ago with similar complaints. At that time, she was discharged home with home oxygen. She notified the home oxygen company when she was doing better and requested that they potato picker the oxygen. Currently, she does not wear oxygen at home. She came in with O2 sats in the 80s. After breathing treatment and steroid she is feeling better. In the ER her chest x-ray suggested that she may have some pulmonary edema and she also had an elevated BNP. She was given IV Lasix in the ER. Will get an echocardiogram while she is in the hospital. She had an echocardiogram done a few months ago which did not reveal any abnormalities except some mild mitral regurgitation. Most likely , this is related to a COPD exacerbation. She will be admitted to the hospital for further evaluation. Allergies carbamazepine [From Tegretol] Allergy (Intermediate, Verified 12/06/18 23:36) Hives/Rash Iodinated Contrast Media [IV Dye, Iodine Containing Contrast ] Allergy ( Intermediate, Verified 12/06/18 23:36) Hives Home Medications: Aspirin [Aspir-Low] 81 mg PO BEDTIME 04/30/17 Atorvastatin Calcium 20 mg PO BEDTIME 04/30/17 Fluoxetine HCl [Prozac] 40 mg PO DAILY 04/30/17 Losartan Potassium 100 mg PO DAILY 04/30/17 Metformin HCl 1,000 mg PO BID 04/30/17 Omeprazole [Prilosec] 40 mg PO 0630 04/30/17 Pregabalin [Lyrica] 300 mg PO BID 04/30/17 Amlodipine [Norvasc*] 10 mg PO DAILY #30 tab 03/25/18 Diphenhydramine HCl [Benadryl Allergy] 25 mg PO DAILY 12/06/18 Insulin Lispro [Humalog] 56 units SQ DAILY 12/06/18 Ibuprofen 1 tab PO Q6H PRN 12/07/18 - Past Medical/Surgical History Has patient received pneumonia vaccine in the past: Yes Diabetic: Yes -: CVA -: HTN -: TIA -: IDDM -: COPD -: BREAST AND CERVICAL CA -: ANEMIA -: DEPRESSION/ANXIETY -: HEADACHES -: Bladder Suspension sx 4 -: Left Ankle Surgery -: Stomach surgery (ureter sx) -: Breast biopsy -: appy -: hyst - Family History Father Medical History: Hypertension, Stroke Mother Medical History: Hypertension, Diabetes - Social History Smoking Status: Never smoker Alcohol use: No CD- Drugs: No Caffeine use: Yes Place of Residence: Home Review of Systems 10-point ROS is otherwise unremarkable Physical Examination - Vital Signs Temperature: 97.8 F Blood Pressure: 117/55 Pulse: 77 Respirations: 20 Pulse Ox (%): 98 - Physical Exam General: Alert, In no apparent distress, Oriented x3 HEENT: Atraumatic, PERRLA, Mucous membr. moist/pink, EOMI, Sclerae nonicteric Neck: Supple, 2+ carotid pulse no bruit, No LAD, Without JVD or thyroid abnormality Respiratory: Diminished, Expiratory wheezes Cardiovascular: Regular rate/rhythm, Normal S1 S2, No murmurs Gastrointestinal: Normal bowel sounds, Soft and benign, Non-distended, No tenderness Musculoskeletal: No clubbing, No tenderness, Swelling Integumentary: No rashes Neurological: Normal gait, Normal speech, Normal strength at 5/5 x4 extr, Normal tone, Sensation intact, Cranial nerves 3-12 intact, Normal affect Lymphatics: No axilla or inguinal lymphadenopathy - Studies Laboratory Data (last 24 hrs) 12/06/18 20:00: PT 10.9, INR 0.92, APTT 35.6 12/06/18 20:00: WBC 13.4 H D, Hgb 10.1 L, Hct 31.9 L, Plt Count 276 12/06/18 20:00: Sodium 141, Potassium 3.4 L, BUN 16, Creatinine 0.77, Glucose 143 H, Magnesium 1.5 L D, Total Bilirubin 0.2, AST 15, ALT 24, Alkaline Phosphatase 99, Lipase 92 Microbiology Data (last 24 hrs): 12/06/18 20:00 Blood - Blood Anaerobic Blood Culture - Final Assessment & Plan - Problems (Diagnosis) (1) COPD exacerbation Onset Date: 11/20/15 Current Visit: No Status: Acute (2) Diabetes mellitus type 2 Current Visit: No Status: Acute (3) Hypertensive disorder, systemic arterial Current Visit: No Status: Acute (4) Hypoxemia Onset Date: 11/20/15 Current Visit: No Status: Acute - Plan Plan: 1. Continue with albuterol and Atrovent nebs 2. Continue with IV steroids 3. Echocardiogram to assess cardiac function. Recent echocardiogram 7 months ago was within normal limits 4. Pulmonary consultation 5. Room air O2 sats 6. Repeat chest x-ray in the morning 7. GI and DVT prophylaxis Discharge Plan: Home Plan to discharge in: Greater than 2 days - Advance Directives Does patient have a Living Will: No Does patient have a Durable POA for Healthcare: No - Code Status/Comfort Care Code Status Assessed: Yes Code Status: Full Code Critical Care: No Time Spent Managing PTS Care (In Minutes): 45
[2018-12-07] MEDS: SITAGLIPTIN PHOS 100 MG TAB PO SCH (09:00)
[2018-12-07] MEDS ORDERED: ENOXAPARIN 40 MG/0.4 ML SQ SCH (09:00)
[2018-12-07] MEDS: predniSONE 20 MG TAB PO SCH ×2 (09:03→22:53)
[2018-12-07] MEDS: LOSARTAN POTASSIUM 50 MG TABLET PO SCH (09:03)
[2018-12-07] MEDS: FLUOXETINE 20 MG CAP PO SCH (09:03)
[2018-12-07] MEDS: PREGABALIN 150 MG CAP PO SCH ×2 (09:03→22:52)
[2018-12-07] MEDS: GLIPIZIDE S.A. 5 MG TAB PO SCH ×2 (09:04→17:40)
[2018-12-07] MEDS: METOPROLOL TAR 50 MG TAB PO SCH ×2 (09:04→22:52)
--- NOTE | 2018-12-07 10:58 | RAD REPORT ---
EXAM DESCRIPTION: US - Extrem Venous W Compress Delvin - 12/07/2018 10:43 am CLINICAL HISTORY: r/o dvt Bilateral leg edema and swelling. COMPARISON: Extrem Venous W Compress Delvin dated 07/12/2015 TECHNIQUE: Real-time sonographic interrogation of the left and right lower extremity deep venous sys tems was performed. FINDINGS: Normal compressibility, flow augmentation, phasic flow and spontaneous flow is identified in both the left and right lower extremity deep venous systems. IMPRESSION: No sonographic evidence of left or right lower extremity deep venous thrombosis.
--- NOTE | 2018-12-07 11:17 | ECHO ---
HEIGHT: 5 ft 2 in WEIGHT: 191 lb 0 oz DATE OF STUDY: 12/07/[address]: Erik Feng MD 2-DIMENSIONAL: YES M.MODE: YES DOPPLER: YES COLOR FLOW: YES TDS: NO PORTABLE: NO DEFINITY: NO BUBBLE STUDY: NO DIAGNOSIS: ACUTE CONGESTIVE HEART FAILURE CARDIAC HISTORY: CATHERIZATION: NO SURGERY: NO PROSTHETIC VALVE: NO PACEMAKER: NO MEASUREMENTS (cm) DIASTOLIC (NORMALS) SYSTOLIC (NORMALS) IVSd 1.1 (0.6-1.2) LA Diam 3.3 (1.9-4.0) LVEF 78% LVIDd 4.3 (3.5-5.7) LVIDs 2.3 (2.0-3.5) %FS 47% LVPWd 1.1 (0.6-1.2) Ao Diam 2.2 (2.0-3.7) 2 DIMENSIONAL ASSESSMENT: RIGHT ATRIUM: NORMAL LEFT ATRIUM: NORMAL RIGHT VENTRICLE: NORMAL LEFT VENTRICLE: NORMAL TRICUSPID VALVE: NORMAL MITRAL VALVE: NORMAL PULMONIC VALVE: NORMAL AORTIC VALVE: NORMAL PERICARDIAL EFFUSION: NONE AORTIC ROOT: NORMAL LEFT VENTRICULAR WALL MOTION: NORMAL. DOPPLER/COLOR FLOW: MILD MITRAL AND TRICUSPID REGURGITATION. NORMAL RIGHT VENTRICULAR SYSTOLIC PRESSURE. COMMENTS: NORMAL 2D ECHO. MILD MITRAL AND TRICUSPID REGURGITATION. TECHNOLOGIST: AAMIR PETERSON
--- NOTE | 2018-12-07 12:54 | CON ---
Attending Physician: Dr. Feng. Reason For Consult: Congestive heart failure. History Of Present Illness: Ms. Ortega has a long history of obstructive lung disease. I am not sure if there is any component of restrictive disease as well, not happens even though she has never been a tobacco user. She came to the hospital with progressive dyspnea and her chest x-ray looks like th ere is mild pulmonary edema. She has had breathing treatments, steroids, antibiotics, and diuretics and now is breathing better. She came in yesterday. In the past, she has never had any evidence of ischemic heart disease or valvular heart disease or myocardial disease. She has never been given the diagnosis of congestive heart failure before. Physical Examination: Vital Signs: She is 5 feet 2 inches, 191 pounds. General: Obese, alert, oriented, pleasant, not in any distress. Lungs: Do not reveal crackles or wheezes. Heart: Reveals no murmur or gallop. Extremities: Mild edema. Abdomen: Soft. There is no carotid bruit. Imaging: Her chest x-ray shows mild pulmonary edema. Laboratory Data: Reveals normal troponins. Normal BUN and creatinine. Normal lipid panel. She holder s take lipid-lowering medications and she has quite significant anemia and her hemoglobin has fallen overnight. It is around 9 this morning, it was above 10 yesterday. I think patient's dyspnea is probably mostly due to her obstructive lung disease. We could repeat an echocardiogram and see if there is any change in her left ventricular ejection fraction. I suppose she has pulmonary edema, heart failure with normal ejection fraction, and normal kidney function. Sh e could have diastolic dysfunction and the anemia of course really exacerbates diastolic dysfunction and diuretics will be the treatment of choice for this, not having a drug such as vasodilators, REJI i nhibitors, Entresto. SH/MODL Voice ID: [id number] Report ID: [id number]
[2018-12-07] MEDS ORDERED: TRAMADOL HCL 50 MG TAB PO PRN (15:25)
[2018-12-07] MEDS: ALBUTEROL 2.5 MG/3 ML NEB SOL NEB PRN (15:51)
[2018-12-07] MEDS: ACETAMINOPHEN 500 MG TAB PO PRN (17:37)
[2018-12-07 17:57] LABS: Folic Acid, (Folate) 9.2 ng/mL (3.1-17.5)
[2018-12-07 21:57] LABS: Urine Appearance CLEAR; Urine Bilirubin NEGATIVE (NEG); Urine Blood NEGATIVE (NEG); Urine Color YELLOW; Urine Glucose TRACE (NEG); Urine Protein NEGATIVE (NEG); Urine Urobilinogen 0.2 mg/dL (0.2-1.0)
[2018-12-07 22:03] LABS: Urine Microscopic Reflex NO UMIC
[2018-12-07] MEDS: ATORVASTATIN 40 MG TAB PO SCH (22:52)
[2018-12-07] MEDS: ASPIRIN EC 81 MG TAB PO SCH (22:53)
--- NOTE | 2018-12-08 03:01 | HP ---
Date of Admission: 12/07/2018 History Of Present Illness: A 73-year-old female with history of chronic obstructive lung disease. She started feeling increased shortness of breath over the past few days. The onset of that was rath er subacute for the patient the way she describes it; however, that kept getting worse, and once she came to emergency room, she had no chest pain, she had no nausea, vomiting, or other associated sympt oms. However, the patient also gave a history that she has been having blood in her stools that stai shea her underwear off and on for many months now. The patient voiced no other complaints. Review of Systems: Cardiovascular: No palpitations. No other complaints. Respiratory: Shortness of breath as above. The patient unable to walk, but getting short of breath with activity even going to the bathroom. Gastrointestinal: No complaints. Genitourinary: No complaints. Neurological: No complaints. Skeletomuscular: Chronic low back pain. Waxes and wanes about 4-5/10. Past Medical History: 1.Hypertension. 2.Hyperlipidemia. 3.Type 2 diabetes mellitus. 4.COPD as mentioned above. 5.Gastroesophageal reflux disease. 6.Chronic low back pain. 7.History of breast cancer and cervical cancer. 8.Peripheral neuropathy. 9.History of TIA in the past. 10.The patient at some point had a questionable history of chronic diastolic and systolic congestive failure, but not apparent on the most recent cardiac echo. 11.Patient has mixed anxiety/depression disorder, mild. Family History: Noncontributing. Social History: No smoking, alcohol, or drug abuse history. Medications: Include amlodipine 10 mg p.o. daily, aspirin 81 mg p.o. daily, atorvastatin 20 mg p.o. daily, Humalog subcutaneous p.r.n. sliding scale, Januvia 10 mg p.o. daily, glipizide 1 mg p.o. daily , metformin 1000 mg p.o. b.i.d., omeprazole 40 mg p.o. daily, pregabalin 300 mg 1 p.o. b.i.d., fluoxe sammy 40 mg p.o. daily. Allergies: CARBAMAZEPINE AND IODINATED CONTRAST MEDIA. Physical Examination: Vital Signs: Blood pressure 115/55, pulse 84, temperature 98.6. Heart: Regular rate and rhythm. Chest: The patient has mild end-expiratory wheezing. Abdomen: Soft, nontender, nondistended. Bowel sounds are normoactive. Extremities: No edema. No cyanosis. Peripheral pulses are felt. Neurological: Alert, oriented, nonfocal. Grossly intact. Cervical, thoracic, and lumbar spine exam ination showed no tenderness. Diagnostic Data: Chest x-ray showed [id number] CHF. Electrocardiogram, normal sinus rhythm. Echocardiogram showed left ventricular ejection fraction of 78%, mild mitral and tricuspid regurg, no rmal right ventricular systolic pressure. Venous ultrasound, doppler study, no DVT. White cell coun t 13.4 down to 7.3, hemoglobin 10.1, dropped to 8.9. This morning platelets are 245, lymphocytes 5.1 . Chemistry noted. GFR of 73. Blood sugar fingersticks noted. Liver function is noted. BNP 539. Ca rdiac enzyme, troponin less than 0.2 and D-dimer 728. Urinalysis; leukocyte esterase 1+, white cell count 5-10. Blood cultures are still pending. Assessment And Plan: 1.Shortness of breath, chronic obstructive pulmonary disease exacerbation is more likely than conges tive failure. The patient is clinically not volume overload and her echo does not show significant h eart failure. However, the patient will put on bedrest and low-salt diet from that standpoint and fo r her chronic obstructive pulmonary disease, we will put her on prednisone, beta 2 agonist breathing treatments, oxygen protocol. We will put her also on IV Rocephin for an bronchitis and al so that will be for her urine tract infection suspected with her urinalysis. 2.Anemia. Significant enough to be from chronic blood loss that may have initiated the patient's sy mptoms to be few days ago. We will go ahead and monitor her CBC and may ask the Gastroent erology to see her for chronic GI loss of blood. In the meantime, we will watch her and monitor her closely from that standpoint. 3.We will monitor her blood sugar and put her on regular insulin sliding scale. 4.We will continue the rest of her home medicines for chronic medical illnesses. 5.The patient is on Lovenox prophylaxis also. Dr. Castro has been consulted that he sees the larry ent for her chronic obstructive pulmonary disease. With increased D-dimer and shortness of breath wi th subacute onset, we will go ahead and check a CT angiogram. Look orders for details. LÁZARO/VIJAY Voice ID: [id number]
[2018-12-08 05:09] LABS: Absolute Lymphocytes (CBC) 1.4 K/uL (0.7-4.9); Basophils % 0.5 % (0-1.3); Hematocrit 29.2 % (36.0-45.0); Lymphocytes % 11.2 % (15.3-44.8); RBC Red Blood Cell Count 3.54 M/uL (3.86-4.86)
[2018-12-08 05:25] LABS: BUN Blood Urea Nitrogen 22 mg/dL (7-18); Bicarbonate 24 mmol/L (21-32); Glucose Level 143 mg/dL (74-106); Potassium 4.8 mmol/L (3.5-5.1); Sodium Level 137 mmol/L (136-145); Troponin I < 0.02 ng/mL (0.0-0.045)
[2018-12-08] MEDS: PANTOPRAZOLE 40MG TABLET PO SCH (05:41)
--- NOTE | 2018-12-08 06:31 | RAD REPORT ---
EXAM DESCRIPTION: RAD - Chest Single View - 12/08/2018 6:07 am CLINICAL HISTORY: Shortness of breath COMPARISON: December 06 TECHNIQUE: AP portable chest image was obtained 0604 hours . FINDINGS: Interstitial and alveolar opacification have progressed. Heart size is stable. Vasculature is prominent. Trachea remains midline. No pneumothorax or enlarging pleural effusion. No acute bony abnormality seen. No acute aortic findings suspected. IMPRESSION: Slight worsening of a lung parenchymal opacification from prior imaging. Findings could reflect worsening failure or a concurrent pneumonia.
[2018-12-08] MEDS ORDERED: FUROSEMIDE 20 MG/ 2ML VIAL IV ONE (08:35)
[2018-12-08] MEDS: LOSARTAN POTASSIUM 50 MG TABLET PO SCH (08:44)
[2018-12-08] MEDS: FLUOXETINE 20 MG CAP PO SCH (08:44)
[2018-12-08] MEDS: GLIPIZIDE S.A. 5 MG TAB PO SCH ×2 (08:45→16:02)
[2018-12-08] MEDS: PREGABALIN 150 MG CAP PO SCH ×2 (08:45→20:08)
[2018-12-08] MEDS: SITAGLIPTIN PHOS 100 MG TAB PO SCH (08:46)
[2018-12-08] MEDS: METOPROLOL TAR 50 MG TAB PO SCH (08:50)
[2018-12-08] MEDS: ACETAMINOPHEN 500 MG TAB PO PRN (08:56)
[2018-12-08 09:16] LABS: Arterial Blood Carboxyhemoglob 0.1 % (0-1.5); Blood Gas Oxyhemoglobin 94.9 % (94-97); Blood O2 Saturation 95.6 % (92-98.5)
[2018-12-08] MEDS: ARFORMOTEROL TARTRATE 15 MCG/2 ML VIAL.NEB NEB SCH ×2 (09:23→20:00)
[2018-12-08] MEDS: METHYLPREDNISOLONE 40 MG INJ IV SCH ×2 (09:55→16:02)
[2018-12-08] MEDS: CEFTRIAXONE/SWI 1gm 1 GM/10 ML SYR IV SCH (09:55)
[2018-12-08] MEDS: ENOXAPARIN 100 MG/ML SYR SQ SCH ×2 (10:35→20:08)
--- NOTE | 2018-12-08 11:48 | P.CNS ---
Date of Consult: 12/08/18 Chief Complaint: Respiratory distress History of Present Illness: Patient is 73 years of age well known to me she is having some back problems last week and suddenly developed shortness of breath patient was admitted from the emergency room this morning she was very tachypneic on 100% non-rebreather. Patient denies any fever chills cough sputum or hemoptysis no chest pain Allergies carbamazepine [From Tegretol] Allergy (Intermediate, Verified 12/06/18 23:36) Hives/Rash Iodinated Contrast Media [IV Dye, Iodine Containing Contrast ] Allergy ( Intermediate, Verified 12/06/18 23:36) Hives Home Medications: Aspirin [Aspir-Low] 81 mg PO BEDTIME 04/30/17 Atorvastatin Calcium 20 mg PO BEDTIME 04/30/17 Fluoxetine HCl [Prozac] 40 mg PO DAILY 04/30/17 Losartan Potassium 100 mg PO DAILY 04/30/17 Metformin HCl 1,000 mg PO BID 04/30/17 Omeprazole [Prilosec] 40 mg PO 0630 04/30/17 Pregabalin [Lyrica] 300 mg PO BID 04/30/17 Amlodipine [Norvasc*] 10 mg PO DAILY #30 tab 03/25/18 Diphenhydramine HCl [Benadryl Allergy] 25 mg PO DAILY 12/06/18 Insulin Lispro [Humalog] 56 units SQ DAILY 12/06/18 Ibuprofen 1 tab PO Q6H PRN 12/07/18 - Past Medical/Surgical History Diabetic: Yes -: CVA -: HTN -: TIA -: IDDM -: COPD -: BREAST AND CERVICAL CA -: ANEMIA -: DEPRESSION/ANXIETY -: HEADACHES -: Bladder Suspension sx 4 -: Left Ankle Surgery -: Stomach surgery (ureter sx) -: Breast biopsy -: appy -: hyst - Family History Father Medical History: Hypertension, Stroke Mother Medical History: Hypertension, Diabetes - Social History Smoking Status: Never smoker Alcohol use: No CD- Drugs: No Caffeine use: Yes Place of Residence: Home Review of Systems 10-point ROS is otherwise unremarkable General: Weakness Respiratory: Shortness of Breath Physical Examination Temp Pulse Resp BP Pulse Ox 98.7 F 102 H 20 153/67 H 93 12/08/18 09:56 12/08/18 10:33 12/08/18 08:00 12/08/18 10:33 12/08/18 08:00 General: Alert, Severe distress HEENT: Atraumatic Neck: Supple Respiratory: Clear to auscultation bilaterally, Diminished Cardiovascular: No edema, Regular rate/rhythm Gastrointestinal: Normal bowel sounds, Soft and benign - Problems (1) Respiratory failure Current Visit: Yes Status: Acute Plan: The history of COPD admitted with respiratory distress stress currently in respiratory distress I have started her on BiPAP. Chest x-ray shows some bilateral changes in the lower zones patient is allergic to contrast media possibility of thromboembolism I have also ordered a full anticoagulants also of Lovenox patient's D-dimer is elevated. His white count is mildly elevated arterial blood gases show significant hypoxemia I have started patient on Rocephin 1 dose of Lasix normal echo Qualifiers: Chronicity: acute
--- NOTE | 2018-12-08 16:01 | PN ---
Subjective: Patient is feeling more short of breath. She is on 100% mask O2 non-rebreather. Objective: Vital Signs: Blood pressure 150/65, pulse 102, temperature 98.7. Heart: Tachycardic, regular rate. Chest: End-expiratory wheezing bilateral, mild to moderate. Abdomen: Soft, nontender. There is no hepatosplenomegaly. Bowel sounds normoactive. Extremities: No edema. No cyanosis. Peripheral pulses are felt. Neurologic: Alert, oriented, nonfocal. Grossly intact. Laboratory Data: ABGs on 100% O2 showed pH of 7.42, pCO2 37, PO2 98.8, saturation 94.9. Chest x-ray showed worsening increased vasculature. Heart size is stable. Interstitial alveolar pneumonia is c onsidered. White cell count 12.5, hemoglobin 9.8, hematocrit 29.2, and platelets 276. BUN 22, creat inine 0.78. Blood sugar fingersticks noted. Assessment And Plan: 1.Acute respiratory failure. Patient with chronic obstructive pulmonary disease exacerbation, likel y now has pneumonia. We will continue current treatment and oxygen protocol. Patient has been put o n Rocephin IV antibiotic. 2.Cultures are pending. 3.Patient is on CPAP, BiPAP. We will continue that. 4.Low back pain, controlled on pain medicines now. 5.Anemia. Hemoglobin 9.8, stable. No evidence of acute bleeding at this time. 6.Rest of chronic medical problems stable. Continue rest of current treatment. MFS/MODL Voice ID: [id number] Report ID: [id number]
--- NOTE | 2018-12-08 18:43 | PN ---
Date of Progress Note: 12/08/2018 Ms. Ortega came in with acute congestive heart failure, although it was mild, CHF by x-ray. She has C OPD. She has anemia. Chest x-ray yesterday showed possibly a pneumonia. Echocardiogram, which was done yesterday afternoon was read, it is normal. She needs to continue diuresis. Continue antibioti cs. No change in therapy from a medical standpoint. She only needs diuretics for her CHF. She has CHF with normal ejection fraction. Full control is very important as well. We will sign off her chau FINK/VIJAY Voice ID: [id number] Report ID: [id number]
[2018-12-08] MEDS: ASPIRIN EC 81 MG TAB PO SCH (20:08)
[2018-12-08] MEDS: ATORVASTATIN 40 MG TAB PO SCH (20:09)
[2018-12-08] MEDS: METOPROLOL TAR 25 MG TAB PO SCH (20:09)
[2018-12-09] MEDS: METHYLPREDNISOLONE 40 MG INJ IV SCH (00:19)
[2018-12-09 05:19] LABS: Absolute Lymphocytes (CBC) 1.1 K/uL (0.7-4.9); Basophils % 0.3 % (0-1.3); Hematocrit 30.6 % (36.0-45.0); Lymphocytes % 9.6 % (15.3-44.8); MPV 9.2 fL (7.6-11.3); RBC Red Blood Cell Count 3.67 M/uL (3.86-4.86)
[2018-12-09 05:27] LABS: BUN Blood Urea Nitrogen 32 mg/dL (7-18); Bicarbonate 25 mmol/L (21-32); Glucose Level 218 mg/dL (74-106); Potassium 4.1 mmol/L (3.5-5.1); Sodium Level 139 mmol/L (136-145); Troponin I < 0.02 ng/mL (0.0-0.045)
[2018-12-09 05:35] LABS: Blood Morphology Comment NOT SEEN (NOT SEEN); Platelet Estimate ADEQ; Urine White Blood Cell Casts OK
[2018-12-09] MEDS: PANTOPRAZOLE 40MG TABLET PO SCH (06:09)
[2018-12-09] MEDS: ARFORMOTEROL TARTRATE 15 MCG/2 ML VIAL.NEB NEB SCH ×2 (08:13→20:00)
--- NOTE | 2018-12-09 08:13 | P.PN ---
Subjective Date of Service: 12/09/18 Chief Complaint: Respiratory distress Subjective: Improving (Patient is doing much better off BiPAP in the ICU shortness of breath has improved) Review of Systems General: Weakness Respiratory: Shortness of Breath Physical Examination - Vital Signs Temperature: 97.2 F Blood Pressure: 109/54 Pulse: 71 Respirations: 16 Pulse Ox (%): 92 - Physical Exam General: Alert, In no apparent distress, Oriented x3 Respiratory: Clear to auscultation bilaterally Cardiovascular: No edema, Regular rate/rhythm Assessment & Plan - Problems (Diagnosis) (1) COPD exacerbation Onset Date: 11/20/15 Current Visit: No Status: Acute Plan: Patient is doing much better possible COPD exacerbation no evidence of DVT normal echo rule out pulmonary embolism V/Q scan ordered change to p.o. prednisone
[2018-12-09] MEDS: GLIPIZIDE S.A. 5 MG TAB PO SCH ×2 (08:50→17:19)
[2018-12-09] MEDS: predniSONE 20 MG TAB PO SCH ×2 (08:51→20:31)
[2018-12-09] MEDS: FLUOXETINE 20 MG CAP PO SCH (08:51)
[2018-12-09] MEDS: METOPROLOL TAR 25 MG TAB PO SCH ×2 (08:52→20:32)
[2018-12-09] MEDS: ENOXAPARIN 100 MG/ML SYR SQ SCH ×2 (08:52→20:32)
[2018-12-09] MEDS: PREGABALIN 150 MG CAP PO SCH ×2 (08:52→20:33)
[2018-12-09] MEDS: CEFTRIAXONE/SWI 1gm 1 GM/10 ML SYR IV SCH (08:54)
[2018-12-09] MEDS: SITAGLIPTIN PHOS 100 MG TAB PO SCH (08:58)
--- NOTE | 2018-12-09 11:19 | RAD REPORT ---
EXAM DESCRIPTION: NM - Vent Perfusion VQ Scan - 12/09/2018 11:09 am CLINICAL HISTORY: Pulmonary embolism, shortness of breath COMPARISON: Chest film December 08, CT scan March 2018 TECHNIQUE: The patient was administered approximately 20 mCi Xenon 133 gas with posterior projection inspiration, equilibrium, and washout views obtained. The patient was then administered approximatel y 7 mCi Tc-99m MAA labeled RBCs followed by standard 8 view protocol. FINDINGS: There is good distribution of the Xenon with no ventilation defects identified. Mild air t rapping is seen primarily in the upper lung samson. Pattern is similar to March. There is an overall improvement in the perfusion pattern compared with the March study. The multip le defects seen on the prior study are not evident on the current examination. Areas of diminished ac tivity match up with normal anatomic structures or prominent extrathoracic soft tissues. IMPRESSION: Low probability V/Q scan for pulmonary embolism. Mild upper lung field air trapping with no ventilation defects.
[2018-12-09] MEDS: LOSARTAN POTASSIUM 50 MG TABLET PO SCH (11:28)
--- NOTE | 2018-12-09 11:29 | RAD REPORT ---
EXAM DESCRIPTION: RAD - Chest Pa And Lat (2 Views) - 12/09/2018 11:22 am CLINICAL HISTORY: SOB COMPARISON: Left knee TECHNIQUE: PA and lateral views of the chest were obtained. FINDINGS: The lungs are fibrotic as a baseline. Interstitial and alveolar opacities remain in each l ower lung field. Findings are worse on the left. Pattern is not substantially different when adjusti ng for the differences between the current PA film of the prior portable film. Heart size is normal r octaviano. No abnormal vascular engorgement. Trachea is midline. No pneumothorax or large pleural effusion . Left costophrenic angle blunting is present. No acute bony finding noted. No aortic abnormality. IMPRESSION: Bilateral lower lung field infiltrate superimposed on fibrosis. Pattern is not substantially different from the prior day portable study.
[2018-12-09] MEDS: IPRATROPIUM BROM 0.5MG/2.5ML NEB SCH ×2 (15:30→20:00)
[2018-12-09] MEDS: BENZONATATE 100 MG CAP PO SCH ×2 (17:19→20:34)
[2018-12-09] MEDS ORDERED: GLUCAGON 1 MG/VIAL IM PRN (17:57)
[2018-12-09] MEDS ORDERED: D50W 25 GM/50 ML SYRINGE IV PRN (17:57)
[2018-12-09] MEDS: INSULIN -REGULAR HUMAN 50 UNIT/0.5 ML ML SQ SCH ×2 (18:10→20:33)
--- NOTE | 2018-12-09 18:44 | PN ---
Subjective: The patient is feeling much better on the CPAP, BiPAP 100%. Shortness of breath is bett er. Has no new complaint except for off and on occasional dry cough. Objective: Vital Signs: Blood pressure 105/55, pulse 76, temperature 97.2. Heart: Regular rate and rhythm. Chest: Mild end-expiratory wheezing. Abdomen: Soft, nontender. No hepatosplenomegaly. Bowel sounds normoactive. Extremities: No edema. No cyanosis. Peripheral pulses are felt. Neurologic: Alert, oriented, nonfocal. Grossly intact. Laboratory Data: Lung V/Q scan, low probability for DVT. White cell count 11.2, hemoglobin 10.2, he matocrit 30.6, and platelets 102. BUN 32, creatinine 0.76. Blood sugar fingersticks noted in the 20 0s. Assessment And Plan: 1.Acute respiratory failure secondary to bibasilar pneumonia evident by chest x-ray findings. So, w e will go ahead and continue current antibiotics and beta 2-agonist breathing treatments, and oxygen protocol. 2.Type 2 diabetes mellitus. We will continue the patient on regular insulin sliding scale. Her blo od sugar numbers in the 200s from stress and medications expect that to gradually start getting anita r. 3.Rest of her chronic medical problems stable. Continue current treatment. We will consider transf erring the patient back to the regular floor tomorrow, remained stable. MFS/MODL Voice ID: [id number] Report ID: [id number]
[2018-12-09] MEDS: ASPIRIN EC 81 MG TAB PO SCH (20:31)
[2018-12-09] MEDS: ATORVASTATIN 40 MG TAB PO SCH (20:31)
[2018-12-10] MEDS: IPRATROPIUM BROM 0.5MG/2.5ML NEB SCH ×4 (02:00→19:45)
[2018-12-10 05:16] LABS: Absolute Lymphocytes (CBC) 0.9 K/uL (0.7-4.9); Basophils % 0.1 % (0-1.3); Hematocrit 32.4 % (36.0-45.0); Lymphocytes % 6.4 % (15.3-44.8); MPV 9.3 fL (7.6-11.3); RBC Red Blood Cell Count 3.87 M/uL (3.86-4.86)
[2018-12-10 05:32] LABS: Potassium 4.3 mmol/L (3.5-5.1)
[2018-12-10] MEDS: ARFORMOTEROL TARTRATE 15 MCG/2 ML VIAL.NEB NEB SCH ×2 (08:05→19:45)
[2018-12-10] MEDS: BENZONATATE 100 MG CAP PO SCH ×2 (08:34→20:31)
[2018-12-10] MEDS: CEFTRIAXONE/SWI 1gm 1 GM/10 ML SYR IV SCH (08:35)
[2018-12-10] MEDS: GLIPIZIDE S.A. 5 MG TAB PO SCH ×2 (08:35→16:31)
[2018-12-10] MEDS: FLUOXETINE 20 MG CAP PO SCH (08:35)
[2018-12-10] MEDS: SITAGLIPTIN PHOS 100 MG TAB PO SCH (08:35)
[2018-12-10] MEDS: predniSONE 20 MG TAB PO SCH ×2 (08:35→20:31)
[2018-12-10] MEDS: ENOXAPARIN 100 MG/ML SYR SQ SCH ×2 (08:36→08:39)
[2018-12-10] MEDS: INSULIN -REGULAR HUMAN 50 UNIT/0.5 ML ML SQ SCH ×4 (08:37→20:41)
[2018-12-10] MEDS: LOSARTAN POTASSIUM 50 MG TABLET PO SCH (08:55)
[2018-12-10] MEDS: PREGABALIN 150 MG CAP PO SCH ×2 (09:31→20:31)
[2018-12-10] MEDS: METOPROLOL TAR 25 MG TAB PO SCH ×2 (09:33→20:31)
--- NOTE | 2018-12-10 13:20 | P.PN ---
Subjective Date of Service: 12/10/18 Chief Complaint: COPD exacerbation Subjective: Improving (Patient is doing much better today she is alert responsive cooperative off BiPAP) Review of Systems General: Weakness Respiratory: Shortness of Breath Physical Examination - Vital Signs Temperature: 97.1 F Blood Pressure: 112/55 Pulse: 80 Respirations: 18 Pulse Ox (%): 95 - Physical Exam General: Alert, Oriented x3 Respiratory: Clear to auscultation bilaterally, Diminished Cardiovascular: No edema, Regular rate/rhythm - Studies Microbiology Data (last 24 hrs): 12/07/18 01:50 Clean Catch Urine [place] Count - Final <10,000 CFU/ML. 12/07/18 01:50 Clean Catch Urine - Final Assessment & Plan - Problems (Diagnosis) (1) COPD exacerbation Onset Date: 11/20/15 Current Visit: No Status: Acute Plan: Patient is 73 years of age admitted with COPD exacerbation she is currently doing much better room-air sat is 88% and will qualify for home O2 V/Q scan shows low probability there is no evidence of DVT echo was normal patient has bronchodilators at home can resume and follow up with me in 2 weeks
[2018-12-10] MEDS: ALBUTEROL 2.5 MG/3 ML NEB SOL NEB PRN (13:48)
[2018-12-10 16:33] VITALS: TEMP 97.4
[2018-12-10] MEDS ORDERED: ENOXAPARIN 40 MG/0.4 ML SQ SCH (17:00)
[2018-12-10] MEDS: ATORVASTATIN 40 MG TAB PO SCH (20:30)
[2018-12-10] MEDS: ASPIRIN EC 81 MG TAB PO SCH (20:31)
[2018-12-10 20:42] VITALS: BP 120/60
[2018-12-10 21:13] VITALS: O2SAT 95
== END 2018-12-10 21:15 | disposition home or self-care (01) | DRG 190 ==
LOC: ER 18:51 → INTOOBSV 22:37 → ERHOLD 22:37 → 4TH 23:08 → OBSVTOIN 12-07 16:04 → 3RD-ICU 12-08 12:25 → 4TH 12-10 09:40
PROVIDERS: ADMIT Internal Medicine; ATTEND Internal Medicine
DX: J44.0 Chronic obstructive pulmonary disease with (acute) lower respiratory infection (principal); J18.9 Pneumonia, unspecified organism; J96.01 Acute respiratory failure with hypoxia; J44.1 Chronic obstructive pulmonary disease with (acute) exacerbation; M54.5 Low back pain; D64.9 Anemia, unspecified; I10 Essential (primary) hypertension; Z85.3 Personal history of malignant neoplasm of breast; Z85.41 Personal history of malignant neoplasm of cervix uteri; E11.9 Type 2 diabetes mellitus without complications; Z91.041 Radiographic dye allergy status; E78.5 Hyperlipidemia, unspecified; Z86.73 Personal history of transient ischemic attack (TIA), and cerebral infarction without residual deficits; Z23 Encounter for immunization
CPT/HCPCS: 36415; 71045; 71046; 78582; 80048; 80053; 80061; 80076; 81003; 81015; 82550; 82553; 82607; 82746; 82805; 82947; 83540; 83690; 83735; 83880; 84100; 84466; 84484; 85025; 85379; 85610; 85730; 87040; 87086; 87088; 90471; 93005; 93306; 93970; 94640; 94660; 94760; 96374; 96375; 97112; 97116; 97161; 99285; A9540; A9558; G0378; J0696; J1650; J1940; J2405; J2920; J7512; J7605; Q2035

== ENCOUNTER 2019-04-29 14:33 | Emergency (ER) | payer OTHER ==
[2011-08-30 10:44] VITALS: BP 179/79
[2019-04-29] MEDS ORDERED: MORPHINE 4 MG/ML SYR ONE (15:24)
[2019-04-29] MEDS ORDERED: ONDANSETRON 4 MG/2 ML VIAL ONE (15:24)
[2019-04-29 15:27] LABS: Absolute Lymphocytes (CBC) 2.5 K/uL (0.7-4.9); Basophils % 0.8 % (0-1.3); Lymphocytes % 26.2 % (15.3-44.8); MPV 8.3 fL (7.6-11.3)
[2019-04-29 15:43] LABS: ALT/SGPT 23 U/L (12-78); AST/SGOT 13 U/L (15-37); Albumin 3.5 g/dL (3.4-5.0); Alkaline Phosphatase 135 U/L (45-117); BUN Blood Urea Nitrogen 15 mg/dL (7-18); Bicarbonate 27 mmol/L (21-32); Bilirubin Direct < 0.1 mg/dL (0-0.2); Bilirubin Total 0.2 mg/dL (0.2-1.0); Glucose Level 88 mg/dL (74-106); Lipase 122 U/L (73-393); Protein, Total 7.5 g/dL (6.4-8.2); Sodium Level 140 mmol/L (136-145)
--- NOTE | 2019-04-29 15:44 | RAD REPORT ---
EXAM DESCRIPTION: US - Abdomen Exam Limited - 04/29/2019 3:35 pm CLINICAL HISTORY: abdominal pain COMPARISON: Abdomen Exam Limited dated 11/29/2018 FINDINGS: The gallbladder demonstrates no gallstones. No pericholecystic fluid or gallbladder wall t hickening. The common bile duct is normal measuring 3 mm. The liver demonstrates no findings of intrahepatic biliary dilatation. IMPRESSION: Unremarkable examination.
--- NOTE | 2019-04-29 16:05 | RAD REPORT ---
EXAM DESCRIPTION: CT - Stone Protocol - 04/29/2019 3:57 pm CLINICAL HISTORY: Flank pain. right flank pain, right abdominal pain COMPARISON: Stone Protocol dated 11/29/2018; Abdomen Exam Limited dated 04/29/2019 TECHNIQUE: Axial images were obtained without oral or IV contrast. Lack of contrast limits solid org an and vascular assessment. The [id number] spans the entirety of the system partially obscuring uppermost abdomen and lung bases. Coronal reformatted images were obtained and reviewed. All CT scans are performed using dose optimization technique as appropriate and may include automated exposure control or mA/KV adjustment according to patient size. FINDINGS: The lower lung samson are clear. Small hiatal hernia. Imaged portions of the liver and spleen show no suspicious findings on non-contrast imaging. The panc reas and adrenal glands are normal. No pathologic lymphadenopathy in the abdomen or pelvis. No urinary tract stones or obstructive uropathy. Nonspecific 16 mm low-density right renal lesion pro bably a cyst but incompletely characterized. No bowel obstruction, free air, free fluid or abscess. The appendix is not identified as a discrete s tructure, however, no secondary findings of appendicitis are identified. Moderate lower lumbar degenerative changes. IMPRESSION: No urinary tract stones or obstructive uropathy.
--- NOTE | 2019-04-29 17:03 | ER ---
Nurse's Notes [facility] Name: Kiley Ortega Age: 73 yrs Sex: Female : 1945 Arrival Date: 04/29/2019 Time: 14:44 Bed 5 Private MD: Diagnosis: Upper abdominal pain, unspecified Presentation: 04/28 14:46 Chief complaint: Patient states: RUQ pain radiating to back X 3-4 days , feels like iw stabbing and sharp pain, +vomited, no diarrhea , +discolored urine with odor. Coronavirus screen: The patient has NOT traveled to a country currently being monitored by the [facility] within the last 14 days. Proceed with normal triage procedures. The patient has NOT had contact with any known and/or suspected case of coronavirus. Proceed with normal triage procedures. Ebola Screen: Patient negative for fever greater than or equal to 101.5 degrees Fahrenheit, and additional compatible Ebola Virus Disease symptoms Patient denies exposure to infectious person. Patient denies travel to an Ebola-affected area in the 21 days before illness onset. No symptoms or risks identified at this time. Initial Sepsis Screen: Does the patient meet any 2 criteria? No. Patient's initial sepsis screen is negative. Does the patient have a suspected source of infection? Yes: Dysuria/Frequency/Urgency/UTI. Risk Assessment: Do you want to hurt yourself or someone else? Patient reports no desire to harm self or others. 14:46 Method Of Arrival: EMS: [facility] iw 14:46 Acuity: SHELLEY 3 iw 14:56 Care prior to arrival: Medication(s) given: zofran 4 mg, ketamine 0.17 X 2 IV iw initiated. in the left wrist, Glucose check: 95. 16:11 Onset of symptoms was April 25, 2019. sv Triage Assessment: 17:29 General: Appears. jl7 Historical: - Allergies: 14:53 Iodinated Contrast Media - IV Dye; iw 14:53 Tegretol; iw - Home Meds: 14:53 amlodipine 10 mg tab for Hypertension [Active]; aspirin 81 mg Oral TbEC 1 tab once iw daily [Active]; atorvastatin 20 mg Oral tab 1 tab once daily [Active]; Benadryl 25 mg Oral cap 1 cap twice a day [Active]; fluxetine 40 mg once daily [Active]; Glimepiride Oral [Active]; Insulin: Humalog Sub-Q [Active]; Januvia Oral [Active]; losartan 100 mg Oral tab 1 tab once daily for Hypertension [Active]; Lyrica 300mg Oral 1 cap 2 times per day for Diabetic Peripheral Neuropathy [Active]; metformin 500 mg Oral tab 2 tabs 2 times per day for Type 2 Diabetes Mellitus [Active]; omeprazole 40 mg Oral cpDR 1 cap once daily for Gastroesophageal reflux [Active]; omeprazole 40 mg Oral cpDR 1 cap once daily [Active]; pregabalin 300 mg Oral 1 cap 2 times per day [Active]; tylenol 500 mg twice a day [Active]; - PMHx: 14:53 breast cancer-right side; cervical cancer; COPD; Diabetes - NIDDM; Hypertension; iw Myopathy; neuropathy; TIA; - Immunization history:: Adult Immunizations up to date. - Social history:: Smoking status: Patient denies any tobacco usage or history of. Screenin:21 Abuse screen: Denies threats or abuse. Denies injuries from another. Nutritional jl7 screening: No deficits noted. Tuberculosis screening: No symptoms or risk factors identified. Fall Risk IV access (20 points). Total Benoit Fall Scale indicates No Risk (0-24 pts). Assessment: 15:20 General: Appears in no apparent distress. uncomfortable, well developed, Behavior is sv calm, cooperative, appropriate for age. Pain: Complains of pain in right upper quadrant and right flank Pain currently is 10 out of 10 on a pain scale. Neuro: Level of Consciousness is awake, alert, obeys commands, Oriented to person, place, time, situation, Moves all extremities. Full function. Respiratory: Respiratory effort is even, unlabored, Respiratory pattern is regular, symmetrical. GI: Abdomen is round obese, Reports diarrhea, vomiting. : Reports urinary odor. Derm: Skin is pink, warm \T\ dry. 15:26 Reassessment: Ultrasound at the bedside. sv 17:30 Reassessment: Patient appears in no apparent distress at this time. Patient and/or sv family updated on plan of care and expected duration. Pain level reassessed. Patient is alert, oriented x 3, equal unlabored respirations, skin warm/dry/pink. Vital Signs: 14:46 BP 151 / 95; Pulse 91; Resp 16 S; Temp 98.4; Pulse Ox 94% on R/A; Pain 10/10; iw 16:11 BP 143 / 49; Pulse 76; Resp 18; Pulse Ox 88% on R/A; sv 17:30 BP 142 / 57; Pulse 75; Resp 16; Pulse Ox 95% ; jl7 16:11 pt placed on O2 \T\ 2L per NC, O2 sat up to 96%. sv ED Course: 14:44 Patient arrived in ED. ps1 14:51 Triage completed. iw 14:53 Arm band placed on. iw 15:04 Slick Tom PA is PHCP. [facility] 15:04 Leobardo Millard MD is Attending Physician. [facility] 15:04 Belkis Sutherland RN is Primary Nurse. sv 15:21 Patient has correct armband on for positive identification. Bed in low position. Call jl7 light in reach. Side rails up X2. Pulse ox on. NIBP on. Warm blanket given. 15:21 Initial lab(s) drawn, by me, sent to lab. Maintain EMS IV. Dressing intact. Good blood jl7 return noted. Site clean \T\ dry. Gauge \T\ site: 24 G left FA. 15:37 US Abdomen Limited In Process Unspecified. EDMS 15:58 CT Stone Protocol In Process Unspecified. EDMS 17:30 No provider procedures requiring assistance completed. IV discontinued, intact, jl7 bleeding controlled, No redness/swelling at site. Pressure dressing applied. Administered Medications: 15:22 Drug: Zofran (Ondansetron) 4 mg Route: IVP; Site: left wrist; sv 15:50 Follow up: Response: No adverse reaction jl7 15:24 Drug: morphine 4 mg Route: IVP; Site: left wrist; sv 15:50 Follow up: Response: No adverse reaction; Pain is decreased jl7 Outcome: 17:03 Discharge ordered by . [facility] 17:30 Discharged to home via wheelchair. jl7 17:30 Condition: stable 17:30 Discharge instructions given to patient, Instructed on discharge instructions, follow up and referral plans. medication usage, Demonstrated understanding of instructions, follow-up care, medications, Prescriptions given X 2. 17:39 Patient left the ED. jl7 Signatures: Dispatcher [employer] EDMS Belkis Sutherland, YUNIOR MOJICA MicSlick seals PA PA jmm Williams, Irene, RN RN iw Caro Manley RN RN jl7 Leobardo Millard MD MD ps1
--- NOTE | 2019-04-29 17:04 | EDPHYS ---
Physician Documentation [facility] Name: Kiley Ortega Age: 73 yrs Sex: Female : 1945 Arrival Date: 04/29/2019 Time: 14:44 Bed 5 Private MD: ED Physician Leobardo Millard HPI: 04/28 15:11 This 73 yrs old Female presents to ER via EMS with complaints of Flank Pain. jmm 15:11 The patient complains of pain in the right flank. Onset: The symptoms/episode jmm began/occurred gradually, 4 day(s) ago. Modifying factors: The symptoms are alleviated by nothing. the symptoms are aggravated by movement. Associated signs and symptoms: Pertinent negatives: dysuria, fever. This is a 73 year old female with a history of COPD, DM, that presents to the ED with complaints of right flank pain which radiates to her abdomen. Episode began approx 4 days ago. Patient has had similar episode before. . Historical: - Allergies: 14:53 Iodinated Contrast Media - IV Dye; iw 14:53 Tegretol; iw - Home Meds: 14:53 amlodipine 10 mg tab for Hypertension [Active]; aspirin 81 mg Oral TbEC 1 tab once iw daily [Active]; atorvastatin 20 mg Oral tab 1 tab once daily [Active]; Benadryl 25 mg Oral cap 1 cap twice a day [Active]; fluxetine 40 mg once daily [Active]; Glimepiride Oral [Active]; Insulin: Humalog Sub-Q [Active]; Januvia Oral [Active]; losartan 100 mg Oral tab 1 tab once daily for Hypertension [Active]; Lyrica 300mg Oral 1 cap 2 times per day for Diabetic Peripheral Neuropathy [Active]; metformin 500 mg Oral tab 2 tabs 2 times per day for Type 2 Diabetes Mellitus [Active]; omeprazole 40 mg Oral cpDR 1 cap once daily for Gastroesophageal reflux [Active]; omeprazole 40 mg Oral cpDR 1 cap once daily [Active]; pregabalin 300 mg Oral 1 cap 2 times per day [Active]; tylenol 500 mg twice a day [Active]; - PMHx: 14:53 breast cancer-right side; cervical cancer; COPD; Diabetes - NIDDM; Hypertension; iw Myopathy; neuropathy; TIA; - Immunization history:: Adult Immunizations up to date. - Social history:: Smoking status: Patient denies any tobacco usage or history of. ROS: 15:11 Constitutional: Negative for fever, chills, and weight loss, Cardiovascular: Negative jmm for chest pain, palpitations, and edema, Respiratory: Negative for shortness of breath, cough, wheezing, and pleuritic chest pain. 15:11 Abdomen/GI: Positive for abdominal pain. 15:11 Back: Positive for flank pain. 15:11 All other systems are negative. Exam: 15:11 Constitutional: This is a well developed, well nourished patient who is awake, alert, jmm and in no acute distress. Head/Face: atraumatic. Eyes: EOMI, no conjunctival erythema appreciated ENT: Moist Mucus Membranes Neck: Trachea midline, Supple Chest/axilla: Normal chest wall appearance and motion. Cardiovascular: Regular rate and rhythm. No edema appreciated Respiratory: Normal respirations, no respiratory distress appreciated 15:11 Skin: General appearance color normal MS/ Extremity: Moves all extremities, no obvious deformities appreciated, no edema noted to the lower extremities Neuro: Awake and alert, normal gait Psych: Behavior is normal, Mood is normal, Patient is cooperative and pleasant 15:11 Abdomen/GI: Inspection: abdomen appears normal, Bowel sounds: normal, Palpation: soft, moderate abdominal tenderness, in the right upper quadrant and right lower quadrant. 15:11 Back: CVA tenderness, that is moderate, is noted on the right. Vital Signs: 14:46 BP 151 / 95; Pulse 91; Resp 16 S; Temp 98.4; Pulse Ox 94% on R/A; Pain 10/10; iw 16:11 BP 143 / 49; Pulse 76; Resp 18; Pulse Ox 88% on R/A; sv 17:30 BP 142 / 57; Pulse 75; Resp 16; Pulse Ox 95% ; jl7 16:11 pt placed on O2 \T\ 2L per NC, O2 sat up to 96%. sv MDM: 15:09 Patient medically screened. [facility] 17:01 Data reviewed: vital signs, nurses notes. Counseling: I had a detailed discussion with frederick the patient and/or guardian regarding: the historical points, exam findings, and any diagnostic results supporting the discharge/admit diagnosis, lab results, radiology results, the need for outpatient follow up, to return to the emergency department if symptoms worsen or persist or if there are any questions or concerns that arise at home. ED course: Patient alert and non toxic in appearance in the ED. Pain is relieved. Patient is advised to follow up with GI for further evaluation. Patient is otherwise given strict return precautions. Patient understood and agrees with the plan of care. . 04/28 15:10 Order name: Basic Metabolic Panel; Complete Time: 15:47 [facility] 04/28 15:10 Order name: CBC with Diff; Complete Time: 15:38 [facility] 04/28 15:10 Order name: Creatinine for Radiology; Complete Time: 15:47 [facility] 04/28 15:10 Order name: Hepatic Function; Complete Time: 15:47 [facility] 04/28 15:10 Order name: Lipase; Complete Time: 15:47 [facility] 04/28 17:20 Order name: Urine Dipstick--Ancillary (enter results) em1 04/28 15:10 Order name: IV Saline Lock; Complete Time: 15:17 [facility] 04/28 15:10 Order name: Labs collected and sent; Complete Time: 15:17 [facility] 04/28 15:10 Order name: US Abdomen Limited; Complete Time: 16:05 [facility] 04/28 15:10 Order name: CT Stone Protocol; Complete Time: 16:13 [facility] 04/28 16:57 Order name: Urine Dipstick-Ancillary (obtain specimen); Complete Time: 17:19 [facility] Administered Medications: 15:22 Drug: Zofran (Ondansetron) 4 mg Route: IVP; Site: left wrist; sv 15:50 Follow up: Response: No adverse reaction jl7 15:24 Drug: morphine 4 mg Route: IVP; Site: left wrist; sv 15:50 Follow up: Response: No adverse reaction; Pain is decreased jl7 Disposition: 18:35 Co-signature as Attending Physician, Leobardo Millard MD Signature for administrative ps1 purposes. Did not see or evaluate patient. . Disposition: 04/29/19 17:03 Discharged to Home. Impression: Upper abdominal pain, unspecified. - Condition is Stable. - Discharge Instructions: Abdominal Pain, Adult. - Prescriptions for Bentyl 20 mg Oral Tablet - take 2 tablet by ORAL route every 6 hours As needed; 40 tablet. Pepcid 20 mg Oral Tablet - take 1 tablet by ORAL route every 12 hours for 10 days; 20 tablet. - Medication Reconciliation Form, Thank You Letter, Antibiotic Education, Prescription Opioid Use form. - Follow up: Private Physician; When: 2 - 3 days; Reason: Recheck today's complaints, Continuance of care, Re-evaluation by your physician. Signatures: Dispatcher [employer] EDBelkis Barton, RN RN Slick Escalera PA PA jmm Williams, Irene, RN RN iw Caro Manley RN RN jl7 Leobardo Millard MD MD ps1 Corrections: (The following items were deleted from the chart) 17:39 17:03 04/29/2019 17:03 Discharged to Home. Impression: Upper abdominal pain, jl7 unspecified. Condition is Stable. Forms are Medication Reconciliation Form, Thank You Letter, Antibiotic Education, Prescription Opioid Use. Follow up: Private Physician; When: 2 - 3 days; Reason: Recheck today's complaints, Continuance of care, Re-evaluation by your physician. frederick
[2019-04-29 18:21] LABS: Urine Blood NEGATIVE (NEG); Urine Glucose NEGATIVE (NEG); Urine Protein NEGATIVE (NEG); Urine pH 5.5 (5.0-7.0)
== END 2019-04-29 17:39 | disposition home or self-care (01) ==
LOC: ER 14:33
DX: R10.10 Upper abdominal pain, unspecified (principal); Z91.09 Other allergy status, other than to drugs and biological substances; Z88.8 Allergy status to other drugs, medicaments and biological substances; E11.9 Type 2 diabetes mellitus without complications; I10 Essential (primary) hypertension; E11.40 Type 2 diabetes mellitus with diabetic neuropathy, unspecified; Z85.3 Personal history of malignant neoplasm of breast; Z85.41 Personal history of malignant neoplasm of cervix uteri
CPT/HCPCS: 85025; 80048; 36415; 80076; 81003; 83690; 76377; 74176; 76705; 96375; 96374; 99284; J2405

== ENCOUNTER 2019-05-04 22:13 | Inpatient (IN) | payer OTHER ==
[2019-05-04 23:36] LABS: Protime INR 0.97
[2019-05-04 23:37] LABS: Basophils % 0.7 % (0-1.3); Hematocrit 34.9 % (36.0-45.0); Lymphocytes % 32.9 % (15.3-44.8); MPV 8.5 fL (7.6-11.3); RBC Red Blood Cell Count 4.27 M/uL (3.86-4.86)
[2019-05-04 23:49] LABS: ALT/SGPT 25 U/L (12-78); AST/SGOT 14 U/L (15-37); Albumin 3.5 g/dL (3.4-5.0); Alkaline Phosphatase 121 U/L (45-117); BUN Blood Urea Nitrogen 21 mg/dL (7-18); Bicarbonate 25 mmol/L (21-32); Bilirubin Direct < 0.1 mg/dL (0-0.2); Bilirubin Total 0.2 mg/dL (0.2-1.0); Glucose Level 182 mg/dL (74-106); Lipase 206 U/L (73-393); Magnesium 1.7 mg/dL (1.8-2.4); NT PRO-BNP 49 pg/mL (<125); Protein, Total 7.7 g/dL (6.4-8.2); Sodium Level 140 mmol/L (136-145); Troponin (Emerg Dept Use Only) < 0.02 ng/mL (0.0-0.045)
[2019-05-04] MEDS ORDERED: MORPHINE 4 MG/ML SYR ONE (23:59)
[2019-05-04] MEDS ORDERED: ONDANSETRON 4 MG/2 ML VIAL ONE (23:59)
[2019-05-05] MEDS ORDERED: FAMOTIDINE 20 MG/2 ML VIAL IV ONE
[2019-05-05] MEDS ORDERED: NA CHLORIDE 0.9% 500 ML ONE
[2019-05-05] MEDS ORDERED: NA CHLORIDE 0.9% 1,000 ML ONE
[2019-05-05] MEDS ORDERED: MAGNESIUM SULFATE 1 gm IVPB 1 GM/100 ML BAG IV ONE (00:35)
--- NOTE | 2019-05-05 01:12 | EDPHYS ---
Physician Documentation [facility] Name: Kiley Ortega Age: 73 yrs Sex: Female : 1945 Arrival Date: 05/04/2019 Time: 22:17 Bed 15 Private MD: ASHLEY Physician Eze Aguilera HPI: 05/03 22:49 This 73 yrs old Female presents to ER via EMS with complaints of right flank ivan and right abdominal pain. 22:49 The patient presents with abdominal pain in the right upper quadrant, right lower ivan quadrant, abdominal distention in the upper abdomen, in the lower abdomen. Onset: The symptoms/episode began/occurred 5 day(s) ago. The patient complains of pain in the right mid back and right low back. The pain radiates to the right mid back and right low back. Onset: The symptoms/episode began/occurred 5 day(s) ago. Modifying factors: The symptoms are alleviated by nothing. the symptoms are aggravated by movement, palpation/percussion. Associated signs and symptoms: The patient has no apparent associated signs or symptoms. The symptoms radiate to the right flank. Associated signs and symptoms: none. Historical: - Allergies: 22:21 Iodinated Contrast Media - IV Dye; rv 22:21 Tegretol; rv - PMHx: 22:21 breast cancer-right side; cervical cancer; COPD; Diabetes - NIDDM; Hypertension; rv Myopathy; neuropathy; TIA; - PSHx: 22:21 Hysterectomy; LYMPHNODES, RIGHT; Appendectomy; rv - Immunization history:: Adult Immunizations up to date. - Social history:: Smoking status: Patient denies any tobacco usage or history of. - Family history:: not pertinent. ROS: 22:49 Constitutional: Negative for fever, chills, and weight loss, Eyes: Negative for injury, ivan pain, redness, and discharge, ENT: Negative for injury, pain, and discharge, Neck: Negative for injury, pain, and swelling, Cardiovascular: Negative for chest pain, palpitations, and edema, Respiratory: Negative for shortness of breath, cough, wheezing, and pleuritic chest pain, : Negative for injury, bleeding, discharge, and swelling, MS/Extremity: Negative for injury and deformity, Skin: Negative for injury, rash, and discoloration, Neuro: Negative for headache, weakness, numbness, tingling, and seizure, Psych: Negative for depression, anxiety, suicide ideation, homicidal ideation, and hallucinations, Allergy/Immunology: Negative for hives, rash, and allergies, Endocrine: Negative for neck swelling, polydipsia, polyuria, polyphagia, and marked weight changes. 22:49 Abdomen/GI: Positive for abdominal pain, of the epigastric area, right upper quadrant and right lower quadrant. 22:49 Back: Positive for pain at rest, flank pain, on the right. Exam: 22:49 Constitutional: This is a well developed, well nourished patient who is awake, alert, ivan and in no acute distress. Head/Face: Normocephalic, atraumatic. Eyes: Pupils equal round and reactive to light, extra-ocular motions intact. Lids and lashes normal. Conjunctiva and sclera are non-icteric and not injected. Cornea within normal limits. Periorbital areas with no swelling, redness, or edema. ENT: Nares patent. No nasal discharge, no septal abnormalities noted. Tympanic membranes are normal and external auditory canals are clear. Oropharynx with no redness, swelling, or masses, exudates, or evidence of obstruction, uvula midline. Mucous membranes moist. Neck: Trachea midline, no thyromegaly or masses palpated, and no cervical lymphadenopathy. Supple, full range of motion without nuchal rigidity, or vertebral point tenderness. No Meningismus. Chest/axilla: Normal chest wall appearance and motion. Nontender with no deformity. No lesions are appreciated. Cardiovascular: Regular rate and rhythm with a normal S1 and S2. No gallops, murmurs, or rubs. Normal PMI, no JVD. No pulse deficits. Respiratory: Lungs have equal breath sounds bilaterally, clear to auscultation and percussion. No rales, rhonchi or wheezes noted. No increased work of breathing, no retractions or nasal flaring. Female : Normal external genitalia. Skin: Warm, dry with normal turgor. Normal color with no rashes, no lesions, and no evidence of cellulitis. MS/ Extremity: Pulses equal, no cyanosis. Neurovascular intact. Full, normal range of motion. Neuro: Awake and alert, GCS 15, oriented to person, place, time, and situation. Cranial nerves II-XII grossly intact. Motor strength 5/5 in all extremities. Sensory grossly intact. Cerebellar exam normal. Normal gait. Psych: Awake, alert, with orientation to person, place and time. Behavior, mood, and affect are within normal limits. 22:49 Abdomen/GI: Inspection: abdomen appears normal, Bowel sounds: active, Palpation: mild abdominal tenderness, in the posterior aspect of right lateral abdomen, anterior aspect of right lateral abdomen and right upper quadrant. Vital Signs: 22:15 BP 147 / 59; Pulse 88; Resp 18; Temp 98.0(O); Pulse Ox 97% on R/A; Pain 9/10; ch2 22:17 BP 147 / 59; Pulse 92; Resp 18; Temp 97.6; Pulse Ox 99% ; Weight 86.64 kg; Height 5 ft. rv 2 in. (157.48 cm); 22:48 BP 139 / 55; Pulse 84; Resp 18; Pulse Ox 97% on R/A; Pain 9/10; ch2 23:30 BP 128 / 47; Pulse 79; Resp 18; Pulse Ox 98% on R/A; Pain 9/10; ch2 03/25 00:00 BP 143 / 50; Pulse 88; Resp 18; Pulse Ox 100% on R/A; Pain 9/10; ch2 00:34 Pain 7/10; ch2 01:00 BP 143 / 62; Pulse 83; Resp 16; Pulse Ox 95% on R/A; Pain 3/10; ch2 02:00 BP 133 / 54; Pulse 76; Resp 18; Pulse Ox 96% on R/A; Pain 5/10; ch2 03:00 BP 119 / 55; Pulse 68; Resp 16; Pulse Ox 95% on R/A; Pain 8/10; ch2 07:00 BP 142 / 85; Pulse 71; Resp 14; Pulse Ox 98% ; bp 03 22:17 Body Mass Index 34.93 (86.64 kg, 157.48 cm) rv MDM: 05/03 22:27 Patient medically screened. [facility] 22:51 Data reviewed: vital signs, nurses notes, lab test result(s), EKG, radiologic studies. [facility] 05/03 22:48 Order name: Basic Metabolic Panel; Complete Time: 23:58 [facility] 05/03 22:48 Order name: CBC with Diff; Complete Time: 23:58 [facility] 05/03 22:48 Order name: LFT's; Complete Time: 23:58 [facility] 05/03 22:48 Order name: Magnesium; Complete Time: 23:58 [facility] 05/03 22:48 Order name: NT PRO-BNP; Complete Time: 23:58 [facility] 05/03 22:48 Order name: PT-INR; Complete Time: 23:58 [facility] 05/03 22:48 Order name: Troponin (emerg Dept Use Only); Complete Time: 23:58 [facility] 05/03 22:48 Order name: XRAY Chest (1 view); Complete Time: 06:01 [facility] 05/03 22:48 Order name: Lipase; Complete Time: 23:58 [facility] 05/03 22:48 Order name: Urine Culture [facility] 05/03 22:48 Order name: CT Stone Protocol [facility] 05/03 22:48 Order name: US Abdomen Limited [facility] 05/04 01:11 Order name: Urine Dipstick--Ancillary (enter results); Complete Time: 06:01 [facility] 05/03 22:48 Order name: EKG; Complete Time: 23:10 [facility] 05/03 22:48 Order name: Cardiac monitoring; Complete Time: 00:26 [facility] 05/03 22:48 Order name: EKG - Nurse/Tech; Complete Time: 00:45 [facility] 05/03 22:48 Order name: IV Saline Lock; Complete Time: 01:04 [facility] 05/03 22:48 Order name: Labs collected and sent; Complete Time: 01:05 [facility] 05/03 22:48 Order name: O2 Per Protocol; Complete Time: 00:22 [facility] 05/03 22:48 Order name: O2 Sat Monitoring; Complete Time: 00:21 [facility] 05/03 22:48 Order name: Urine Dipstick-Ancillary (obtain specimen); Complete Time: 01:05 [facility] 05/04 01:15 Order name: CONS Physician Consult EDMS Administered Medications: 05/04 00:07 Drug: morphine 4 mg Route: IVP; Site: left forearm; ch2 00:34 Follow up: Pain 7/10 Adult; Response: No adverse reaction; Marked relief of symptoms; ch2 Pain is decreased 00:07 Drug: Zofran (Ondansetron) 4 mg Route: IVP; Site: left forearm; ch2 00:33 Follow up: Response: No adverse reaction; Marked relief of symptoms; Nausea is decreasedch2 00:08 Drug: NS 0.9% 500 ml Route: IV; Rate: bolus; Site: left forearm; ch2 00:35 Follow up: Response: No adverse reaction; IV Status: Completed infusion; IV Intake: ch2 500ml 00:08 Drug: Pepcid 20 mg Route: IVP; Site: left forearm; ch2 00:34 Follow up: Response: No adverse reaction; Marked relief of symptoms ch2 00:44 Drug: NS 0.9% 1000 ml Route: IV; Rate: 125 ml/hr; Site: left forearm; ch2 03:35 Follow up: IV Status: Infusion continued upon admission ch2 00:44 Drug: Magnesium Sulfate 1 grams Route: IVPB; Infused Over: 1 hrs; Site: left forearm; ch2 02:01 Follow up: Response: No adverse reaction; IV Status: Completed infusion; IV Intake: ch2 100ml 02:00 Drug: Zosyn 3.375 grams Route: IVPB; Infused Over: 60 mins; Site: left forearm; ch2 03:27 Follow up: Response: No adverse reaction; IV Status: Completed infusion ch2 Disposition: 05/05/19 01:08 Hospitalization ordered by Shivani Anguiano for Inpatient Admission. Preliminary diagnosis are Abdominal tenderness, Cholelithiasis, Type 2 diabetes mellitus, Hypomagnesemia. - Bed requested for Telemetry/MedSurg (Inpatient). - Status is Inpatient Admission. bp - Condition is Stable. - Problem is new. - Symptoms have improved. Signatures: Dispatcher [employer] EDMS Eze Aguilera MD MD cha Garcia, Cindy, RN RN cg Will Figueredo RN RN bp Hanna, Candace, RN RN ch2 Matt Gtz RN RN rv Corrections: (The following items were deleted from the chart) 01:08 Hospitalization Ordered by Shivani Anguiano MD for Inpatient Admission. Preliminary cg diagnosis is Abdominal tenderness; Cholelithiasis; Type 2 diabetes mellitus; Hypomagnesemia. Bed requested for Telemetry/MedSurg (Inpatient). Status is Inpatient Admission. Condition is Stable. Problem is new. Symptoms have improved. ivan : 01:05/05/2019 01:08 Hospitalization Ordered by Shivani Anguiano MD for Inpatient cg Admission. Preliminary diagnosis is Abdominal tenderness; Cholelithiasis; Type 2 diabetes mellitus; Hypomagnesemia. Bed requested for [facility] ER HOLD. Status is Inpatient Admission. Condition is Stable. Problem is new. Symptoms have improved. cg 06:10 01:25 05/05/2019 01:08 Hospitalization Ordered by Shivani Anguiano MD for Inpatient cg Admission. Preliminary diagnosis is Abdominal tenderness; Cholelithiasis; Type 2 diabetes mellitus; Hypomagnesemia. Bed requested for [facility] ER HOLD. Status is Inpatient Admission. Condition is Stable. Problem is new. Symptoms have improved. 06:11 06:10 05/05/2019 01:08 Hospitalization Ordered by Shivani Anguiano MD for Inpatient cg Admission. Preliminary diagnosis is Abdominal tenderness; Cholelithiasis; Type 2 diabetes mellitus; Hypomagnesemia. Bed requested for Telemetry/MedSurg (Inpatient). Status is Inpatient Admission. Condition is Stable. Problem is new. Symptoms have improved. 08:13 06:11 05/05/2019 01:08 Hospitalization Ordered by Shivani Anguiano MD for Inpatient bp Admission. Preliminary diagnosis is Abdominal tenderness; Cholelithiasis; Type 2 diabetes mellitus; Hypomagnesemia. Bed requested for Telemetry/MedSurg (Inpatient). Status is Inpatient Admission. Condition is Stable. Problem is new. Symptoms have improved.
--- NOTE | 2019-05-05 01:12 | ER ---
Nurse's Notes [facility] Name: Kiley Ortega Age: 73 yrs Sex: Female : 1945 Arrival Date: 05/04/2019 Time: 22:17 Bed 15 Private MD: Diagnosis: Abdominal tenderness;Cholelithiasis;Type 2 diabetes mellitus;Hypomagnesemia Presentation: 05/03 22:17 Chief complaint: EMS states: ABDOMINAL PAIN RUQ, RIGHT AFTER EATING. PAIN STARTED TWO rv HOURS AGO. PATIENT WAS SEEN THE OTHER DAY WITH THE SAME PAIN, NORMAL TEST RESULTS. Coronavirus screen: Patient denies fever greater than 100.4F, cough, shortness of breath, or difficulty breathing. Proceed with normal triage process. Ebola Screen: No symptoms or risks identified at this time. Initial Sepsis Screen: Does the patient meet any 2 criteria? No. Patient's initial sepsis screen is negative. Does the patient have a suspected source of infection? No. Patient's initial sepsis screen is negative. Risk Assessment: Do you want to hurt yourself or someone else? Patient reports no desire to harm self or others. 22:17 Method Of Arrival: EMS: [facility] rv 22:17 Acuity: SHELLEY 3 rv 05/04 03:20 Onset of symptoms was May 03, 2019. ch2 Historical: - Allergies: 05/03 22:21 Iodinated Contrast Media - IV Dye; rv 22:21 Tegretol; rv - PMHx: 22:21 breast cancer-right side; cervical cancer; COPD; Diabetes - NIDDM; Hypertension; rv Myopathy; neuropathy; TIA; - PSHx: 22:21 Hysterectomy; LYMPHNODES, RIGHT; Appendectomy; rv - Immunization history:: Adult Immunizations up to date. - Social history:: Smoking status: Patient denies any tobacco usage or history of. - Family history:: not pertinent. Screenin/25 00:11 Abuse screen: Denies threats or abuse. Denies injuries from another. Nutritional ch2 screening: No deficits noted. Tuberculosis screening: No symptoms or risk factors identified. Fall Risk IV access (20 points). Ambulatory Aid- Gait- Weak (10 pts.). Mental Status- Oriented to own ability (0 pts). Assessment: 05/03 22:40 General: Appears uncomfortable, obese, well groomed, well developed, well nourished, ch2 Behavior is calm, cooperative, appropriate for age, Reports Denies fever, fatigue, chills. Pain: Complains of pain in right lower quadrant Pain radiates to right low back Quality of pain is described as sharp, stabbing, Pain began 2-3 days ago. Is intermittent. Neuro: Level of Consciousness is awake, alert, obeys commands, Oriented to person, place, time, situation, Appropriate for age Receiving Operator are equal bilaterally Moves all extremities. Full function Speech is normal. Cardiovascular: No deficits noted. Denies chest pain, diaphoresis, palpitations, shortness of breath, Heart tones S1 S2 present Patient's skin is warm and dry. Pulses are palpable in right radial artery, right dorsalis pedis artery, left radial artery and left dorsalis pedis artery Rhythm is regular Chest pain is denied. Respiratory: No deficits noted. Airway is patent Respiratory effort is even, unlabored, Respiratory pattern is regular, symmetrical, Breath sounds are clear bilaterally. GI: Abdomen is round non-distended, Bowel sounds present X 4 quads. Abd is soft and non tender Reports lower abdominal pain, nausea, vomiting at home. : No deficits noted. No signs and/or symptoms were reported regarding the genitourinary system. EENT: Poor dentition noted. absence of teeth noted. Derm: No deficits noted. No signs and/or symptoms reported regarding the dermatologic system. Musculoskeletal: Reports weakness in right leg and left leg. 05/04 00:45 Reassessment: Patient appears in no apparent distress at this time. No changes from [facility] previously documented assessment. Patient and/or family updated on plan of care and expected duration. Pain level reassessed. Patient is alert, oriented x 3, equal unlabored respirations, skin warm/dry/pink. Patient states feeling better. Patient states symptoms have improved. General: Appears in no apparent distress. comfortable, Behavior is calm, cooperative. 07:01 Reassessment: RECD REPORT FROM CORTNEY MOJICA. 73YO WF P/W RUQ PAIN, ADMIT FOR bp CHOLELITHIASIS. Vital Signs: 05/03 22:15 BP 147 / 59; Pulse 88; Resp 18; Temp 98.0(O); Pulse Ox 97% on R/A; Pain 9/10; ch2 22:17 BP 147 / 59; Pulse 92; Resp 18; Temp 97.6; Pulse Ox 99% ; Weight 86.64 kg; Height 5 ft. rv 2 in. (157.48 cm); 22:48 BP 139 / 55; Pulse 84; Resp 18; Pulse Ox 97% on R/A; Pain 9/10; ch2 23:30 BP 128 / 47; Pulse 79; Resp 18; Pulse Ox 98% on R/A; Pain 9/10; ch2 05/04 00:00 BP 143 / 50; Pulse 88; Resp 18; Pulse Ox 100% on R/A; Pain 9/10; ch2 00:34 Pain 7/10; ch2 01:00 BP 143 / 62; Pulse 83; Resp 16; Pulse Ox 95% on R/A; Pain 3/10; ch2 02:00 BP 133 / 54; Pulse 76; Resp 18; Pulse Ox 96% on R/A; Pain 5/10; ch2 03:00 BP 119 / 55; Pulse 68; Resp 16; Pulse Ox 95% on R/A; Pain 8/10; ch2 07:00 BP 142 / 85; Pulse 71; Resp 14; Pulse Ox 98% ; bp 05/03 22:17 Body Mass Index 34.93 (86.64 kg, 157.48 cm) rv ED Course: 05/03 22:17 Patient arrived in ED. rv 22:19 Triage completed. rv 22:21 Arm band placed on Patient placed in the treatment room, on a stretcher, Patient rv notified of wait time. 22:26 Eze Aguilera MD is Attending Physician. ivan 05/04 00:14 XRAY Chest (1 view) In Process Unspecified. EDMS 00:15 CT Stone Protocol In Process Unspecified. EDMS 00:46 Bed in low position. Call light in reach. Side rails up X2. night monitor on. Pulse ch2 ox on. NIBP on. Door closed. Noise minimized. Lights dimmed. Warm blanket given. 01:05 Assisted to bedside commode. Repositioned patient. ch2 01:06 Shivani Anguiano MD is Hospitalizing Provider. ivan 02:56 No provider procedures requiring assistance completed. Patient admitted, IV remains in ch2 place. 07:00 Will Figueredo, YUNIOR is Primary Nurse. bp Administered Medications: 00:07 Drug: morphine 4 mg Route: IVP; Site: left forearm; ch2 00:34 Follow up: Pain 7/10 Adult; Response: No adverse reaction; Marked relief of symptoms; ch2 Pain is decreased 00:07 Drug: Zofran (Ondansetron) 4 mg Route: IVP; Site: left forearm; ch2 00:33 Follow up: Response: No adverse reaction; Marked relief of symptoms; Nausea is decreasedch2 00:08 Drug: NS 0.9% 500 ml Route: IV; Rate: bolus; Site: left forearm; ch2 00:35 Follow up: Response: No adverse reaction; IV Status: Completed infusion; IV Intake: ch2 500ml 00:08 Drug: Pepcid 20 mg Route: IVP; Site: left forearm; ch2 00:34 Follow up: Response: No adverse reaction; Marked relief of symptoms ch2 00:44 Drug: NS 0.9% 1000 ml Route: IV; Rate: 125 ml/hr; Site: left forearm; ch2 03:35 Follow up: IV Status: Infusion continued upon admission ch2 00:44 Drug: Magnesium Sulfate 1 grams Route: IVPB; Infused Over: 1 hrs; Site: left forearm; ch2 02:01 Follow up: Response: No adverse reaction; IV Status: Completed infusion; IV Intake: ch2 100ml 02:00 Drug: Zosyn 3.375 grams Route: IVPB; Infused Over: 60 mins; Site: left forearm; ch2 03:27 Follow up: Response: No adverse reaction; IV Status: Completed infusion ch2 Intake: 00:35 IV: 500ml; Total: 500ml. ch2 02:01 IV: 100ml; Total: 600ml. ch2 Output: 01:06 Urine: 200ml (Voided); Total: 200ml. ch2 Outcome: 01:08 Decision to Hospitalize by Provider. ivan 02:55 Admitted to ER Hold. [facility] see [facility] for further documentation. ch2 02:55 Condition: stable 02:55 Instructed on the need for admit. 07:40 Admitted to Med/surg accompanied by tech, via wheelchair, room 225, with chart, Report bp called to JULIETTE MOJICA 08:13 Patient left the ED. bp Signatures: Dispatcher [employer] Eze Dueñas MD MD cha Peltier, Brian RN RN bp Cortney Weinberg RN RN ch2 Matt Gtz RN RN rv
[2019-05-05] MEDS ORDERED: PIPER/TAZO/NS 3.375gm 3.375 GM/100 ML BAG ONE ×2 (01:34→06:42)
[2019-05-05 01:59] LABS: Urine Blood NEGATIVE (NEG); Urine Glucose NEGATIVE (NEG); Urine Protein NEGATIVE (NEG); Urine Specific Gravity >1.030 (1.005-1.030); Urine pH 5.5 (5.0-7.0)
[2019-05-05] MEDS ORDERED: D50W 25 GM/50 ML SYRINGE/VIAL IV PRN (03:05)
[2019-05-05] MEDS: NA CHLORIDE 0.9% 1,000 ML IV SCH ×5 (03:05→20:55)
[2019-05-05] MEDS ORDERED: ACETAMINOPHEN 500 MG TAB PO PRN (03:05)
[2019-05-05] MEDS ORDERED: GLUCAGON 1 MG/VIAL IM PRN (03:05)
[2019-05-05] MEDS: ONDANSETRON 4 MG/2 ML VIAL IV PRN ×4 (03:15→18:54)
[2019-05-05] MEDS: MORPHINE 4 MG/ML SYR IV PRN ×4 (03:15→20:49)
[2019-05-05 03:40] VITALS: BMI 34.9
--- NOTE | 2019-05-05 05:55 | RAD REPORT ---
EXAM DESCRIPTION: Bhavik Single View05/05/2019 12:11 am CLINICAL HISTORY: Abdominal pain COMPARISON: 2018 FINDINGS: The lungs appear clear of acute infiltrate. The heart is normal size IMPRESSION: No acute abnormalities displayed
[2019-05-05] MEDS: PIPER/TAZO/NS 3.375gm 3.375 GM/100 ML BAG IVPB SCH ×3 (06:59→17:24)
[2019-05-05] MEDS ORDERED: INSULIN -REGULAR HUMAN 50 UNIT/0.5 ML ML SQ SCH ×2 (07:30→12:00)
[2019-05-05] MEDS: FAMOTIDINE 20 MG/2 ML VIAL IV SCH ×2 (08:27→20:50)
--- NOTE | 2019-05-05 08:41 | RAD REPORT ---
EXAM DESCRIPTION: US - Abdomen Exam Limited - 05/05/2019 7:05 am CLINICAL HISTORY: Abdominal pain. COMPARISON: April 29, 2019 FINDINGS: The gallbladder wall is not thickened. A gallstone is not seen. The biliary tree is normal caliber. IMPRESSION: Unremarkable gallbladder ultrasound.
--- NOTE | 2019-05-05 10:57 | EKG ---
Test Date: 2019-05-05 Test Time: 00:35:29 Regulatory Submissions Associate: CASEY MEASUREMENT RESULTS: Intervals: Rate: 72 KS: 186 QRSD: 78 QT: 420 QTc: 459 [place]: P: 74 KS: 186 QRS: 34 T: 44 INTERPRETIVE STATEMENTS: Normal sinus rhythm Normal ECG Compared to ECG 12/06/2018 19:20:46 No significant changes Electronically Signed On 05-05-19 10:56:08 CDT by Jose Lovett
--- NOTE | 2019-05-05 12:53 | RAD REPORT ---
EXAM DESCRIPTION: CT - Stone Protocol - 05/05/2019 12:12 am CLINICAL HISTORY: 73 years Female ABD PAIN COMPARISON: None TECHNIQUE: Images were obtained in axial, sagittal, and coronal planes. No intravenous or oral contr ast was administered. This exam was performed according to our departmental dose-optimization program which includes use of Automated Exposure Control, adjustment of the mA and/or kV according to patient size and/or use of i terative reconstruction technique. FINDINGS: No obstructing renal calcifications bilaterally. No hydronephrosis bilaterally. Unremarkab le bladder. Right renal cyst. No abnormality involving the liver, spleen, pancreas, or adrenal glands bilaterally. Mildly contracte d gallbladder with possible sludge. Prominent right lobe of liver likely Edouard's lobe. Appendix not well identified however no secondary signs for appendicitis. No bowel obstruction, perfo ration, or inflammation. No abnormality lower lungs bilaterally. No acute osseous abnormality. More remote fractures inferior pubic rami on right. No dilatation abdominal aorta. No adenopathy or abnormal fluid collections seen. IMPRESSION: Mildly contracted gallbladder with possible sludge. Small hiatal hernia. Otherwise unremarkable study. Electronically signed by: Deborah Armando MD 05/05/2019 12:21 AM CDT Due to temporary technical issues with the PACS/Fluency reporting system, reports are being signed by the in house radiologist as a courtesy to ensure prompt reporting. The interpreting radiologist is f ully responsible for the content of the report.
[2019-05-05] MEDS: INSULIN -REGULAR HUMAN 50 UNIT/0.5 ML ML SQ SCH ×2 (16:27→20:50)
[2019-05-05] MEDS ORDERED: ACETAMINOPHEN 325 MG TABLET PO PRN (17:00)
--- NOTE | 2019-05-05 21:51 | CON ---
Date of Consultation: 05/05/2019 Diagnosis: Epigastric tenderness. History Of Present Illness: This is a case of a 73-year-old patient, come to us complaining of epiga stric and right upper quadrant pain radiating to the back associated with nausea. No vomiting. She has been feel like that for about 2 days of duration. She denies any dysuria, hematuria, hematochezi a, or melena. Denies any recent traveling out of the country. Denies any family member sick at home . She does not remember the last colonoscopy, although she was advised to do so. Allergies: IODINE AND TEGRETOL. Surgical History: Includes hysterectomy, appendectomy, breast cancer surgery with lymph node. She c annot give me the details of that. Past Medical History: Includes breast cancer on the right side, cervical cancer, diabetes, COPD, non -insulin-dependent diabetes, neuropathy, TIA and hypertension. Social History: She does not smoke. She does not drink alcohol. Family History: Noncontributory. Review of Systems: 10 points otherwise unremarkable. Physical Examination: General: The patient is awake and alert. HEENT: Pupils are equal and reactive, anicteric. Neck: Supple. Chest: Clear. Abdomen: Epigastric tenderness. On guarding or rebound. Breasts: Deferred. Rectal: Deferred. Pelvic: Deferred. Extremities: Good capillary refill. Laboratory Data: Blood work shows a WBC count of 9.1, hemoglobin of 11.2. INR 0.97. Chloride is 10 8, magnesium 1.7. Total bilirubin normal. CAT scan of the abdomen and pelvis interpreted by Dr. Juan reyes as mild contracted gallbladder, possible sludge, small hiatal hernia. Ultrasound was recommende d. Patient had an ultrasound done, interpreted by Dr. Buenrostro, and the ultrasound said unremarkable gallbladder ultrasound. The gallbladder wall is not thickening and gallstone is not seen. Assessment: This is a 73-year-old patient, epigastric pain. She presented a picture of maybe gallbl adder, although the ultrasound does not show any stones or any inflammation. We have a doubt about a cute cholecystitis. HIDA scan could be ordered. We may give her clear liquid diet. Once again, we advised to her the importance of not overdoing it. We have GI on-call. Due to this national emergen cy, it is hard to see at this time and we have them on-call and they have to evaluate for an EGD in t he future. I will follow the patient with you. If we have a HIDA scan, available we are going to tr y to order it. CHARITY Voice ID: [id number] Report ID: [id number]
[2019-05-06] MEDS: PIPER/TAZO/NS 3.375gm 3.375 GM/100 ML BAG IVPB SCH ×3 (00:37→17:09)
[2019-05-06] MEDS: MORPHINE 4 MG/ML SYR IV PRN ×4 (00:38→20:15)
[2019-05-06] MEDS: ONDANSETRON 4 MG/2 ML VIAL IV PRN ×3 (00:38→20:15)
[2019-05-06] MEDS: NA CHLORIDE 0.9% 1,000 ML IV SCH ×2 (03:06→17:08)
[2019-05-06 05:52] LABS: Absolute Lymphocytes (CBC) 2.3 K/uL (0.7-4.9); Basophils % 0.7 % (0-1.3); Hematocrit 31.7 % (36.0-45.0); Lymphocytes % 24.9 % (15.3-44.8); MPV 8.8 fL (7.6-11.3); RBC Red Blood Cell Count 3.83 M/uL (3.86-4.86)
[2019-05-06 05:54] LABS: Albumin 3.2 g/dL (3.4-5.0); Bilirubin Direct 0.1 mg/dL (0-0.2); Bilirubin Total 0.3 mg/dL (0.2-1.0); Potassium 4.2 mmol/L (3.5-5.1); Protein, Total 6.8 g/dL (6.4-8.2)
[2019-05-06] MEDS: INSULIN -REGULAR HUMAN 50 UNIT/0.5 ML ML SQ SCH ×4 (07:30→20:24)
--- NOTE | 2019-05-06 07:59 | RAD REPORT ---
EXAM DESCRIPTION: NM - Hepatobiliary System W/ Ph - 05/06/2019 7:52 am CLINICAL HISTORY: r/o cholecystitis COMPARISON: Stone Protocol dated 05/04/2019; Abdomen Exam Limited dated 05/05/2019 TECHNIQUE: The patient was administered 6.4 mCi Tc99m Choletec. Imaging of the right upper quadrant was performed initially for up to 60 minutes. The patient was administered synthetic CCK over a slow 30 minute infusion. ARCHIE measurements were obtained of the gallbladder and an ejection fraction calcu lated. Synthetic CCK dosage was 1.9 mgm. FINDINGS: There is homogeneous uptake of radiopharmaceutical throughout the liver. There is no delay in visualization of the biliary tree or duodenum. Gallbladder visualizes within normal time limits. The calculated ejection fraction is 32% (>35% michael l).. Patient reported a pre-procedure pain rated 8/10 increasing to 10/10 during CCK infusion. IMPRESSION: Patent cystic duct and patent sphincter of Oddi. No delay in visualization of the gallbl adder, biliary tree, or duodenum. Ejection fraction is 32% (>35% normal). Patient reported a pre-procedure pain rated 8/10 increasing to 10/10 during CCK infusion.
[2019-05-06] MEDS: FAMOTIDINE 20 MG/2 ML VIAL IV SCH ×2 (08:34→20:16)
[2019-05-06] MEDS ORDERED: NA CHLORIDE 0.9% 1,000 ML ONE (14:15)
[2019-05-06] MEDS ORDERED: ALBUTEROL 2.5 MG/3 ML NEB SOL ONE ×2 (14:17→16:45)
--- NOTE | 2019-05-06 14:17 | PN ---
Date of Progress Note: 05/06/2019 Diagnoses: Acute cholecystitis, symptomatic cholelithiasis, peritonitis, diabetes, morbid obesity. History Of Present Illness: This is a case of a 73-year-old patient. For the last week, she has bee n having this epigastric right upper quadrant pain, radiating to the back with Farris sign positive. She has been in the doctor a few times. She finally was admitted a few days ago. The first CT scan showed sludge which is tiny stones and also contracted gallbladder consistent with cholecystitis. U ltrasound just done after that did not reflect the same. Patient is still clinically with Farris sig n positive, right upper quadrant tenderness. Primary doctor has been working on that and they have n o other reason for this pain. Today, she went to a HIDA scan and when they injected CCK, she states she had duplication of the symptoms and pain just became 10/10. The ejection fraction of the gallbla dder is low and is abnormal test. So, we have 2 abnormal tests clinically. She shows consistent wit h gallbladder disease and she has not been able to eat. She is still even n.p.o. right now. She is hurting. We are in a national emergency with only and emergent cases done. I believe thi s qualifies for that. I did contact the worship director in the institution, discussed the case w ith him, the blood work, the tests, and after I gave him a second opinion, he did agree with me the p atient qualifies for emergent laparoscopic cholecystectomy, possible open. I discussed that with the patient. She wants to sign a consent and have this done right now. So, the OR was contacted and th e case was booked. The laparoscopic, possible open cholecystectomy fully explained to the patient an d benefits, alternatives, and risks which include but are not limited to infection, bleeding, damage to adjacent structures, anesthesia complication, choledocholithiasis, bile leak, pancreatitis, MO, ev en . She also understands this may not relieve her symptoms. She might need more than one surgical intervention. She understood and she is going to sign a consent. The OR was emergently contacted. VAISHNAVI/VIJAY Voice ID: [id number] Report ID: [id number]
[2019-05-06] MEDS ORDERED: ONDANSETRON 4 MG/2 ML VIAL ONE (14:22)
[2019-05-06] MEDS ORDERED: propofoL 200 MG/20 ML VIAL IV ONE (14:22)
[2019-05-06] MEDS ORDERED: FENTANYL CITR 100 MCG/2 ML ONE (14:22)
[2019-05-06] MEDS ORDERED: LIDOCAINE 2% MPF 5 ML VIAL ONE (14:22)
[2019-05-06] MEDS ORDERED: ROCURONIUM 50 MG/5 ML VIAL IV ONE (14:22)
[2019-05-06] MEDS ORDERED: dexAMETHasone 4 MG/ML VIAL ONE (14:22)
[2019-05-06] MEDS ORDERED: SUCCINYLCHOLINE 20 MG/ML (10 ML) IV ONE (14:33)
[2019-05-06] MEDS ORDERED: ETOMIDATE 20 MG/10 ML VIAL IV ONE (14:40)
[2019-05-06] MEDS ORDERED: Phenylephrine HCl 10 MG/ML 1 ML VIAL ONE (14:46)
[2019-05-06] MEDS ORDERED: GLYCOPYRROLATE 0.2 MG/ML SYR ONE (15:51)
[2019-05-06] MEDS ORDERED: NEOSTIGMINE 1 MG/ML -5 ML ONE (15:53)
--- NOTE | 2019-05-06 16:01 | P.BOP ---
Preoperative diagnosis: acute cholecystitis, intractable abd pain, symptomatic clolelithiasis, naga Postoperative diagnosis: morbid obesity, COPD, extensive intrabdominal adhesions , peritonitis Primary procedure: Laparoscopic cholecystectomy Secondary procedure: LAparoscopic lysis of adhesions Thread Trimmer: Gwendolyn Monroy) Estimated blood loss: 10cc Specimen: gb Findings: as above Anesthesia: General Complications: None Drain(s): NIK drain Transferred to: Recovery Room Condition: Good
[2019-05-06] MEDS ORDERED: HYDROCODONE/APAP 5/325 MG TAB PO PRN (16:09)
--- NOTE | 2019-05-06 18:38 | HP ---
Date of Admission: 05/06/2019 History Of Present Illness: -ssxs-hud female who presented to the emergency room with a co mplaint of a few days of right upper quadrant pain along with nausea with occasional vomiting. A jazmine picion of acute cholecystitis was considered. The patient was admitted for observation from that sta ndpoint. Review of Systems: Cardiovascular: No complaint. Gastrointestinal: As above. Respiratory: No complaint. Genitourinary: No complaint. Skeletomuscular: No complaint. Neurological: No complaint. Past Medical History: Includes, 1.Type 2 diabetes. 2.COPD with chronic respiratory failure. 3.Hypertension. 4.Gastroesophageal reflux disease. 5.Irritable bowel without diarrhea. 6.Hyperlipidemia. 7.Anxiety disorder. 8.Polyarthritis, multiple joints. 9.Osteoporosis. Social History: No smoking, alcohol, or IV drug abuse history. Family History: Noncontributing. Medications: Include fluoxetine 40 mg p.o. daily, Symbicort 2 inhalations daily, losartan 100 mg p.o . daily, amlodipine 10 mg p.o. daily, Fosamax 70 mg p.o. weekly, metformin 1000 mg p.o. b.i.d., amlod ipine 5 mg p.o. daily, ProAir HFA 2 puffs q.i.d. p.r.n., calcium plus vitamin D supplement, Humalog K wikPen 56 units daily, atorvastatin 20 mg p.o. daily, aspirin 81 mg p.o. daily, omeprazole 40 mg p.o. daily, Lyrica 300 mg p.o. b.i.d. Allergies: INCLUDING LISINOPRIL, TEGRETOL, IODINE CONTAINING COMPOUNDS. Physical Examination: Vital Signs: Blood pressure 110/60, pulse 87, temperature 98.9. Heart: Regular rate and rhythm. Chest: Clear to auscultation. Abdomen: The patient has right upper quadrant tenderness, moderate. Bowel sounds are active. Neurological: Alert, oriented, nonfocal. Grossly intact. Extremities: No edema. No cyanosis. Peripheral pulses are felt. Laboratory Data: Abdominal CT and ultrasound of the abdomen showed no gallbladder stones, has a nae le bit of sludge. Otherwise nonrevealing. Chest x-ray; no acute pathology. CBC; white cell count 9.2, hemoglobin 11.1, hematocrit 31.7, platelets 292. PT/INR noted. Chemistry ; chloride 109, GFR 83, blood sugar fingersticks ranged from 225 to 163. AST at 69, ALT at 65, alkal ine phosphatase at 154. Urinalysis noted. Assessment And Plan: 1.Right upper quadrant pain. Dr. Blas's surgery was consulted, Gastroenterology unavailable at this time because of the national emergency. The patient has been put n.p.o., put her on prophylacti c IV antibiotics. Continue home medications and monitor her blood sugar fingersticks and put her on sliding scale. 2.Mild elevation of liver enzymes, mild to moderate. However, they are not strikingly high to expla in the patient's symptom at this time. Depending on the HIDA scan ordered by Dr. Blas and patien t's symptoms, we will act accordingly. Look orders for details. MFS/MODL Voice ID: [id number]
--- NOTE | 2019-05-06 21:20 | OP ---
Date of Procedure: 05/06/2019 Surgeon: Pk Blas MD De Alcoholizer: STEPHANIE Erickson. Preoperative Diagnoses: Acute cholecystitis, intractable abdominal pain, symptomatic cholelithiasis, peritonitis, morbid obesity, chronic obstructive pulmonary disease. Postoperative Diagnoses: Acute cholecystitis, intractable abdominal pain, symptomatic cholelithiasis , peritonitis, morbid obesity, chronic obstructive pulmonary disease, extensive intraabdominal adhesi ons, edematous, distended gallbladder. Procedure: Laparoscopic cholecystectomy, laparoscopic extensive lysis of adhesions. Estimated Blood Loss: Less than 10 to 20 mL. Specimen: Gallbladder. Findings: Extensive intraabdominal adhesions. Patient has multiple surgeries in the past. The gall bladder looks distended, omental wrapping the area of the gallbladder, distended, erythematosus. Drains: NIK #10. Indications: This is the case of a female who comes to us with intractable abdominal pain. Tests we re equivocal. We have a CAT scan and a HIDA scan done today that shows a gallbladder disease, even t remington the sonogram was initially just called as a negative. Clinically, patient has a Farris sign po sitive with peritonitis. So, I fully explained to the patient the need for laparoscopic possible ope n cholecystectomy urgently with benefits, alternatives, and risks including, but not limited to infec tion, bleeding, damage to adjacent structures, anesthesia complication, MT, and even . She also understands this may not relieve the symptoms. She might need more than one surgical intervention. She understands the emergency situation of the nation is going through this moment and she understan d also the exposure to corey virus. By the same time, we have this intractable pain. She wants arcadio laura done to be now and I do agree since patient has a severe right upper quadrant pain. She underst ands that when we put the cameras in, may be a negative exploration, but the benefit now are with the risk. The case was discussed also with the chief steward/stewardess who did agree. Description Of Procedure: Patient was brought to the operating room, placed in supine position. Ane sthesia was done without complication. Abdominal area was prepped and draped in a sterile fashion. Marcaine 0.5% was injected for local anesthetic followed by sharp incision of the skin in the infraum bilical region. Incision was carried down to fascia, which was opened under direct vision. Peritone um was encountered, opened under direct vision. Vicryl #1 placed inside of the fascia. Sirena troca r was carefully introduced. No bleeding was obtained. We noticed immediately adhesions blocking our view to the gallbladder. We found a spot in the epigastric area, that we can put a 5 mm trocar safe enough. This allowed me to put a LigaSure and proceeded to do extensive lysis of adhesions to bring all this down and small bowel without any enterotomies and bleeding. This allowed me now to put the 2 more trocars in the epigastric area and gave me visualization of the gallbladder that shows edemat ous and distended gallbladder with already omental adhesions to it consistent with acute cholecystiti s. In order for us to decompress the gallbladder, since it was so tense, we used an Endo needle unde r direct visualization and decompress the gallbladder. This allowed me to put a grasper in the fundu s of the gallbladder and carefully removed also adhesions of omentum to the gallbladder. With the si gnificant amount of time just doing this in 2 parts, the adhesions in the abdomen and adhesions in th e gallbladder until we are able to visualize the gallbladder completely. No other grasper placed in the infundibulum of the gallbladder and the gallbladder was retracted in the inferolateral fashion ex posing the triangle of Calot, obtaining critical view. The cystic duct and cystic artery were clearl y isolated, freed circumferentially and a connection between those and the gallbladder was clearly id entified. We proceeded to ligate those by using at least 2 clips proximal, 1 clip distal, ligation i n middle. One the cystic artery and cystic duct were isolated and clipped, there was no bile leak, n o bleeding. We proceeded to remove the gallbladder from liver using Bovie cauterizer and removed fro m abdominal cavity using an EndoCatch through the umbilical incision. Due to the disease that we hav e in that area, we feel safe to do the NIK drain over that area and a NIK drain was introduced into the abdomen under direct visualization exiting through one of the trocar sites. This NIK drain was secur ed in place with 3-0 nylon. After that, we inspected the area once again. The area of the lysis of adhesions was intact with no bleeding. The area of the gallbladder fossa with no bile leak, no bleed ing. At that moment, I proceeded to remove the trocars under direct vision, deflated the pneumoperit oneum, closed the fascia with #1 Vicryl. Irrigated the subcutaneous tissue, closed that with 3-0 chr omic and skin with micah. Sponge count and instrument counts were correct. Patient tolerated the procedure well. Patient was sent to recovery in stable condition. VAISHNAVI/VIJAY Voice ID: [id number] Report ID: [id number]
[2019-05-07] MEDS: MORPHINE 4 MG/ML SYR IV PRN ×3 (00:08→10:51)
[2019-05-07] MEDS: NA CHLORIDE 0.9% 1,000 ML IV SCH ×3 (00:09→10:53)
[2019-05-07] MEDS: PIPER/TAZO/NS 3.375gm 3.375 GM/100 ML BAG IVPB SCH ×2 (01:00→10:14)
[2019-05-07] MEDS ORDERED: PIPERACIL/TAZO 3.375 GM VIAL IV ONE (01:23)
[2019-05-07] MEDS ORDERED: NA CHLORIDE 0.9% 100 ML ONE (01:25)
[2019-05-07] MEDS: ONDANSETRON 4 MG/2 ML VIAL IV PRN (05:20)
[2019-05-07] MEDS: INSULIN -REGULAR HUMAN 50 UNIT/0.5 ML ML SQ SCH ×2 (07:30→11:30)
[2019-05-07 09:42] VITALS: BP 159/70; TEMP 99.5
[2019-05-07] MEDS: FAMOTIDINE 20 MG/2 ML VIAL IV SCH (10:14)
[2019-05-07 10:47] VITALS: O2SAT 94
--- NOTE | 2019-05-10 08:00 | PN ---
Date of Progress Note: 05/07/2019 Diagnosis: Acute cholecystitis, symptomatic cholelithiasis, right upper quadrant abdominal pain. Procedure: Laparoscopic cholecystectomy. Objective: General: The patient states she feels better today. No shortness of breath. No chest p ain. Passing flatus. Chest: Bilateral breath sounds. Abdomen: Soft and depressible. Intact surgical site. Extremities: Good capillary refill. Plan: From the surgical standpoint, to be sent home on antibiotics. She Augme ntin 875 p.o. q.12 may be given and then also Tylenol No. 3 p.r.n. for pain. diet about l ow-fat diet. She is under the service of the primary doctor, so once she is okay to go __ conditions above and also that she has to follow in my office in 1 week. VAISHNAVI/VIJAY Voice ID: [id number] Report ID: [id number]
== END 2019-05-07 14:28 | disposition home or self-care (01) | DRG 417 ==
LOC: ER 22:13 → ERHOLD 05-05 01:23 → INTOOBSV 05-05 01:23 → 2ND 05-05 07:44 → OBSVTOIN 05-06 14:43
PROVIDERS: ADMIT Internal Medicine; ATTEND Internal Medicine
PROC: 0W9G40Z Drainage of Peritoneal Cavity with Drainage Device, Percutaneous Endoscopic Approach (ICD-10-PCS; 2019-05-06)
PROC: 0FT44ZZ Resection of Gallbladder, Percutaneous Endoscopic Approach (ICD-10-PCS; principal; 2019-05-06 11:15)
DX: K80.00 Calculus of gallbladder with acute cholecystitis without obstruction (principal); K65.9 Peritonitis, unspecified; J96.10 Chronic respiratory failure, unspecified whether with hypoxia or hypercapnia; E11.9 Type 2 diabetes mellitus without complications; E78.5 Hyperlipidemia, unspecified; I10 Essential (primary) hypertension; K21.9 Gastro-esophageal reflux disease without esophagitis; J44.9 Chronic obstructive pulmonary disease, unspecified; Z86.73 Personal history of transient ischemic attack (TIA), and cerebral infarction without residual deficits; Z90.49 Acquired absence of other specified parts of digestive tract; Z90.710 Acquired absence of both cervix and uterus; Z79.51 Long term (current) use of inhaled steroids; Z79.899 Other long term (current) drug therapy; Z79.84 Long term (current) use of oral hypoglycemic drugs; Z79.82 Long term (current) use of aspirin; Z88.8 Allergy status to other drugs, medicaments and biological substances; Z85.41 Personal history of malignant neoplasm of cervix uteri; Z85.3 Personal history of malignant neoplasm of breast; Z68.34 Body mass index [BMI] 34.0-34.9, adult; E66.01 Morbid (severe) obesity due to excess calories
CPT/HCPCS: 36415; 71045; 74176; 76377; 76705; 78227; 80048; 80076; 81003; 82947; 83690; 83735; 83880; 84484; 85025; 85610; 87086; 87088; 88304; 93005; 96361; 96365; 96366; 96375; 99285; A9537; G0378; J0330; J2370; J2405; J2543; J2704; J2710; J2805; J3010; J3475; J7030

== ENCOUNTER 2019-05-08 14:58 | Inpatient (IN) | payer OTHER ==
[~2019-05-08 14:58] MED LIST: ETOMIDATE 20 MG/10 ML VIAL IV ONE; SUCCINYLCHOLINE 20 MG/ML (10 ML) IV ONE
[2019-05-08] MEDS ORDERED: NA CHLORIDE 0.9% 1,000 ML ONE (15:10)
[2019-05-08] MEDS ORDERED: NA CHLORIDE 0.9% 500 ML ONE (15:29)
[2019-05-08 15:34] LABS: Basophils % 0.3 % (0-1.3); Hematocrit 29.8 % (36.0-45.0); Lymphocytes % 6.6 % (15.3-44.8); MPV 8.5 fL (7.6-11.3); RBC Red Blood Cell Count 3.67 M/uL (3.86-4.86)
[2019-05-08 15:43] LABS: Protime INR 1.08
--- NOTE | 2019-05-08 15:53 | RAD REPORT ---
EXAM DESCRIPTION: RAD - Chest Single View - 05/08/2019 3:24 pm CLINICAL HISTORY: hypoxia, sepsis protocol Chest pain. COMPARISON: <Comparisons> FINDINGS: Portable technique limits examination quality. Moderate bilateral pulmonary opacities are present probably representing pneumonia or pulmonary edema . The heart is upper limit of in size. No displaced fractures.
[2019-05-08 15:55] LABS: ALT/SGPT 56 U/L (12-78); AST/SGOT 34 U/L (15-37); Albumin 2.8 g/dL (3.4-5.0); Alkaline Phosphatase 125 U/L (45-117); Amylase Level 25 U/L (25-115); BUN Blood Urea Nitrogen 14 mg/dL (7-18); Bicarbonate 23 mmol/L (21-32); Bilirubin Direct 0.2 mg/dL (0-0.2); Bilirubin Total 0.5 mg/dL (0.2-1.0); CKMB Creatine Kinase MB 2.9 ng/mL (0.3-3.6); Creatine Phosphokinase 150 U/L (26-192); Glucose Level 209 mg/dL (74-106); Lipase 66 U/L (73-393); Potassium 3.6 mmol/L (3.5-5.1); Sodium Level 140 mmol/L (136-145); Troponin (Emerg Dept Use Only) 0.04 ng/mL (0.0-0.045)
[2019-05-08] MEDS ORDERED: Levofloxacin 750mg IV 750 MG/150 ML BAG IV ONE (17:23)
[2019-05-08] MEDS ORDERED: ONDANSETRON 4 MG/2 ML VIAL ONE ×3 (17:23→19:23)
[2019-05-08] MEDS ORDERED: PIPER/TAZO/NS 3.375gm 3.375 GM/100 ML BAG ONE (17:23)
[2019-05-08] MEDS ORDERED: FENTANYL CITR 100 MCG/2 ML ONE ×3 (17:23→22:33)
[2019-05-08] MEDS ORDERED: VANCOMYCIN/NS 1 gm 1 GM/250 ML BAG IVPB ONE (18:00)
[2019-05-08 18:17] LABS: Urine Appearance CLEAR; Urine Blood NEGATIVE (NEG); Urine Color DK YELLOW; Urine Glucose 1+ (NEG); Urine Protein 1+ (NEG); Urine Specific Gravity 1.025 (1.005-1.030)
[2019-05-08 18:26] LABS: Urine Bilirubin NEGATIVE (NEG)
[2019-05-08 18:28] LABS: Urine Bacteria <20 /HPF (<20); Urine Culture Reflex Order NOT NEEDED; Urine RBC <5 /HPF (NONE SEEN)
--- NOTE | 2019-05-08 19:15 | RAD REPORT ---
EXAM DESCRIPTION: CT - Chest Abd Pelvis Wo Con - 05/08/2019 6:57 pm CLINICAL HISTORY: Chest and abdomen pain. shortness of breath, s/p franklin, fever COMPARISON: Chest Abd Pelvis Wo Con dated 03/17/2018 TECHNIQUE: A limited noncontrast study was performed. All CT scans are performed using dose optimization technique as appropriate and may include automated exposure control or mA/KV adjustment according to patient size. FINDINGS: Moderate airspace opacities are present bilaterally, greatest in the right upper lobe as w ell as both lower lobes posteriorly.Small left pleural effusion. Trace right pleural effusion.Mild so ft tissue fullness in the right hilar region probably represents mild adenopathy. Mildly enlarged pre tracheal node is present 12 mm. The liver, spleen, pancreas, adrenal glands and kidneys are within normal limits. Cholecystectomy cli ps. Large drainage catheter is in place in the gallbladder fossa. No fluid is seen in the region. No bowel obstruction, free air, free fluid or abscess. Appendectomy. Skin micah are present. No pat hologic lymphadenopathy in the abdomen or pelvis. Moderate lumbar degenerative changes. IMPRESSION: Moderate multifocal pneumonia pattern is suspected.
[2019-05-08 19:52] LABS: Ferritin 37.1 ng/mL (8-388)
[2019-05-08 20:27] LABS: Blood Gas Oxyhemoglobin 85.4 % (94-97); Blood O2 Saturation 85.9 % (92-98.5)
[2019-05-08] MEDS ORDERED: ALBUTEROL INHALER 60 PUFF/8 GM IH ONE (20:43)
[2019-05-08] MEDS ORDERED: propofoL 200 MG/20 ML VIAL IV ONE (20:47)
[2019-05-08] MEDS ORDERED: RSI MEDICATION KIT IV ONE (20:48)
[2019-05-08] MEDS ORDERED: propofoL 1,000 MG/100 ML VIAL IV ONE (20:50)
--- NOTE | 2019-05-08 21:29 | ER ---
Nurse's Notes [facility] Name: Kiley Ortega Age: 73 yrs Sex: Female : 1945 Arrival Date: 05/08/2019 Time: 15:01 Bed 28 Private MD: Diagnosis: Multifocal Pneumonia;Hypoxia Presentation: 05/07 15:02 Chief complaint: EMS states: Had gall bladder removed 1 week ago, reports fever x 2 ph days, temp 102.7 for EMS, HR 120, Spo2 80% RA, improved to 91% on NRB mask, c/o pain to RUQ, drain in place. Coronavirus screen: Patient denies fever greater than 100.4F, cough, shortness of breath, or difficulty breathing. Ebola Screen: No symptoms or risks identified at this time. Initial Sepsis Screen: Does the patient meet any 2 criteria? RR > 20 per min. HR > 90 bpm. Yes Does the patient have a suspected source of infection? Yes: Skin breakdown/wound. Risk Assessment: Do you want to hurt yourself or someone else? Patient reports no desire to harm self or others. 15:02 Method Of Arrival: EMS: [facility] ph 15:02 Acuity: SHELLEY 2 ph 19:00 Onset of symptoms is unknown. jd3 Historical: - Allergies: 15:07 Iodinated Contrast Media - IV Dye; ph 15:07 Tegretol; ph - Home Meds: 15:19 amlodipine 10 mg tab for Hypertension [Active]; aspirin 81 mg Oral TbEC 1 tab once ph daily [Active]; atorvastatin 20 mg Oral tab 1 tab once daily [Active]; Benadryl 25 mg Oral cap 1 cap twice a day [Active]; fluxetine 40 mg once daily [Active]; Glimepiride Oral [Active]; Insulin: Humalog Sub-Q [Active]; Januvia Oral [Active]; losartan 100 mg Oral tab 1 tab once daily for Hypertension [Active]; Lyrica 300mg Oral 1 cap 2 times per day for Diabetic Peripheral Neuropathy [Active]; metformin 500 mg Oral tab 2 tabs 2 times per day for Type 2 Diabetes Mellitus [Active]; omeprazole 40 mg Oral cpDR 1 cap once daily for Gastroesophageal reflux [Active]; pregabalin 300 mg Oral 1 cap 2 times per day [Active]; tylenol 500 mg twice a day [Active]; - PMHx: 15:07 breast cancer-right side; cervical cancer; COPD; Diabetes - NIDDM; Hypertension; ph Myopathy; neuropathy; TIA; - PSHx: 15:07 Hysterectomy; LYMPHNODES, RIGHT; Appendectomy; Cholecystectomy; ph - Immunization history:: Adult Immunizations unknown. - Social history:: Smoking status: Patient denies any tobacco usage or history of. Screenin:07 Abuse screen: Denies threats or abuse. Denies injuries from another. Nutritional ph screening: No deficits noted. Tuberculosis screening: No symptoms or risk factors identified. Fall Risk No fall in past 12 months (0 pts). No secondary diagnosis (0 pts). IV access (20 points). Ambulatory Aid- None/Bed Rest/Nurse Assist (0 pts). Gait- Weak (10 pts.). Mental Status- Oriented to own ability (0 pts). Total Benoit Fall Scale indicates Low Risk Score (25-44 pts). Fall prevention measures have been instituted. Side Rails Up X 2 Placed close to Nursing Station Frequent Obs/Assesments occuring As available Patient and Family Educated on Fall Prevention Program and strategies. Assessment: 15:30 General: Appears in no apparent distress. uncomfortable, ill, obese, Behavior is calm, ph cooperative, appropriate for age, Reports chills for fever for 1-2 days. Pain: Complains of pain in right upper quadrant. Neuro: Level of Consciousness is awake, alert, obeys commands, Oriented to person, place, time, situation, Reports weakness. Cardiovascular: Reports fatigue, shortness of breath, Denies chest pain, Capillary refill < 3 seconds in bilateral fingers Patient's skin is warm and dry. Rhythm is sinus tachycardia. Respiratory: Reports shortness of breath at rest cough that is Airway is patent Respiratory effort is even, Respiratory pattern is tachypnea Breath sounds are diminished bilaterally. GI: Abdomen is round distended, NIK drain to RUQ. Derm: Skin is intact, Skin is pale, Skin temperature is warm. Musculoskeletal: Circulation, motion, and sensation intact. Range of motion: intact in all extremities. 17:00 Reassessment: Patient appears in no apparent distress at this time. No changes from ph previously documented assessment. Patient and/or family updated on plan of care and expected duration. Pain level reassessed. Pt awake and alert, c/o pain to RUQ and requesting medication, ERP notified, see MAR. 18:15 Reassessment: Patient appears in no apparent distress at this time. Patient and/or ph family updated on plan of care and expected duration. Pain level reassessed. Pt medicated for pain and nausea, straight cath preformed to obtain urine, pt tolerated well. 19:45 General: Appears in no apparent distress. uncomfortable, Behavior is calm, cooperative, jd3 appropriate for age. Pain: Complains of pain in chest and right upper quadrant Quality of pain is described as aching, tender. Neuro: Level of Consciousness is awake, alert, obeys commands, Oriented to person, place, time, situation. Cardiovascular: Reports fatigue, shortness of breath, Capillary refill < 3 seconds Patient's skin is warm and dry. Respiratory: Reports shortness of breath at rest cough that is non-productive, persistent Airway is patent Respiratory effort is labored, shallow, weak, Respiratory pattern is hyperventilation tachypnea Breath sounds with wheezes bilaterally. GI: Abdomen is round NIK drain noted to right mid side of abdomen. drain noted with serosanguinous fluid. : No signs and/or symptoms were reported regarding the genitourinary system. EENT: No signs and/or symptoms were reported regarding the EENT system. Derm: Skin is intact, Skin is dry, Skin is pale, Skin temperature is warm. Musculoskeletal: No signs and/or symptoms reported regarding the musculoskeletal system. 20:48 Reassessment: Patient and/or family updated on plan of care and expected duration. Pain jd3 level reassessed. pt reporting increased shortness of breath, pt asking for further assistance in helping her breath, pt giving permission to intubate. provider notified. 21:15 Reassessment: Patient and/or family updated on plan of care and expected duration. Pain jd3 level reassessed. pt intubated. no apparent distress at this time. monitoring intubated pt, pt post intubation, pt appears less labored with vent. pt's respirations appear more relaxed. Slick Amanda PA, Max RN, Remington RT, Demetrice RT at bedside for intubation. Respiratory: Airway via oral intubation pt tolerating ventilator well Breath sounds with wheezes bilaterally. 21:34 Reassessment: attempted to call pt's son Zackary Pugh [phone] and daughter Jesenia Dickens [phone] to report pt's change in condition after being intubated but there was no answer at either number and I was unable to leave a message. 22:15 Reassessment: No changes from previously documented assessment. Patient and/or family jd3 updated on plan of care and expected duration. Pain level reassessed. monitoring intubated pt, pt post intubation, pt appears less labored with vent. pt's respirations appear more relaxed. 22:45 Reassessment: No changes from previously documented assessment. Patient and/or family jd3 updated on plan of care and expected duration. Pain level reassessed. nurses at bedside, pt is post intubation, pt appears less labored with vent. 23:00 Reassessment: No changes from previously documented assessment. Patient and/or family jd3 updated on plan of care and expected duration. Pain level reassessed. [facility] monitoring post intubated pt. pt appears more relaxed. 23:00 Respiratory: Airway is patent via oral intubation Breath sounds with wheezes jd3 bilaterally. Vital Signs: 15:02 BP 141 / 59; Pulse 108; Resp 24; Temp 100.7(A); Pulse Ox 79% on R/A; Weight 83.91 kg; ph Height 5 ft. 2 in. (157.48 cm); 16:00 BP 137 / 89; Pulse 102; Resp 24; Pulse Ox 97% on 100% Non-rebreather mask; ph 17:00 BP 140 / 63; Pulse 96; Resp 22; Pulse Ox 97% on 100% Non-rebreather mask; ph 18:00 BP 130 / 76; Pulse 98; Resp 22; Temp 99.8(A); Pulse Ox 98% on 100% Non-rebreather mask; ph 19:37 BP 154 / 63; Pulse 99; Resp 25; Pain 8/10; lw1 20:46 BP 135 / 56; Pulse 107; Resp 24; Pulse Ox 97% on Non-rebreather mask; oe 21:19 BP 148 / 65; Pulse 165; Resp 23; Pulse Ox 94% on 90% FiO2 ETT vent; oe 22:00 BP 117 / 63; Pulse 90; Resp 25; Pulse Ox 97% on 90% FiO2 ETT vent; oe 22:47 BP 121 / 60; Pulse 94; Resp 22; Pulse Ox 99% on ETT vent; lw1 23:00 BP 137 / 73; Pulse 102; Resp 23 S; Pulse Ox 99% on 90% FiO2 ETT vent; jd3 23:30 BP 127 / 61; Pulse 94; Resp 20 S; Pulse Ox 100% on 90% FiO2 ETT vent; jd3 05/08 00:00 BP 120 / 60; Pulse 92; Resp 25 S; Pulse Ox 100% on 90% FiO2 ETT vent; jd3 05/07 15:02 Body Mass Index 33.84 (83.91 kg, 157.48 cm) ph ED Course: 05/07 15:01 Patient arrived in ED. aa5 15:02 Aime Wilson, RN is Primary Nurse. ph 15:06 Triage completed. ph 15:08 Patient has correct armband on for positive identification. Placed in gown. Bed in low ph position. Call light in reach. Side rails up X2. campus monitor on. Pulse ox on. NIBP on. Door closed. Noise minimized. 15:08 Arm band placed on. ph 15:17 Slick Tom PA is PHCP. [facility] 15:17 Eze Aguilera MD is Attending Physician. jmm 15:25 Chest Single View XRAY In Process Unspecified. EDMS 15:32 Radiology exam delayed due to nurse w pt \T\ this time. neena to call when pts ready for bq ct. 16:14 Accessed US guided midline placed to L upper arm. Pt tolerated well. 20 gauge, 10 cm ss power glide. Flushes well, blood return noted. 18:00 Straight cath inserted, using sterile technique, 16 Fr. Specimen obtained. Patient aa5 tolerated well. 18:12 Notified Lab with Pt PUI number ([id number]). ms 18:55 No provider procedures requiring assistance completed. Patient admitted, IV remains in ph place. 18:57 CT Chest Abdomen Pelvis W/O Contrast In Process Unspecified. EDMS 21:14 Assisted provider with intubation using 7.5 mm ETT via oral route. ET tube secured at jd3 22cm at the teeth. Set up intubation tray. Intubated by Slick RODRIGUEZ Placement verified by CXR, CO2 detector w/ + color change, auscultating bilateral breath sounds. 21:15 Assist ventilation vent settings: RR at 16, pepp of 5, 90 % FiO2, 26 peak pressure. jd3 21:27 Shivani Anguiano MD is Hospitalizing Provider. [facility] 21:35 NGT: inserted 14 Fr. other via oral route verified placement of air over stomach, jd3 Placement verified by X-ray, to intermittent suction. Patient tolerated well. 22:02 Long cath inserted, using sterile technique, 16 Fr., by ED staff, balloon inflated, to jd3 gravity drainage, urine specimen collected. returned melani urine. Patient tolerated well. Administered Medications: 16:14 Drug: NS 0.9% (30 ml/kg) 30 ml/kg Route: IV; Rate: bolus; Site: left upper arm; ss 17:15 Follow up: Response: No adverse reaction; IV Status: Completed infusion; IV Intake: ph 500ml 17:50 Drug: fentaNYL (PF) 25 mcg Route: IVP; Site: left antecubital; ph 18:43 Follow up: Response: No adverse reaction; Pain is decreased ph 18:00 Drug: Zosyn 3.375 grams Route: IVPB; Infused Over: 60 mins; Site: left antecubital; ph 18:43 Follow up: Response: No adverse reaction; IV Status: Completed infusion ph 18:05 Drug: fentaNYL (PF) 25 mcg Route: IVP; Site: left antecubital; ph 18:44 Follow up: Response: No adverse reaction; Pain is decreased ph 18:15 Drug: Zofran (Ondansetron) 4 mg Route: IVP; Site: left antecubital; ph 18:43 Follow up: Response: No adverse reaction; Nausea is decreased ph 18:43 Drug: LevaQUIN 750 mg Volume: 150 ml; Route: IVPB; Infused Over: 90 mins; Site: left ph antecubital; 20:15 Follow up: Response: No adverse reaction; IV Status: Completed infusion; IV Intake: jd3 150ml 18:46 CANCELLED (Duplicate Order): NS 0.9% 500 ml IV at bolus once ph 19:45 Drug: fentaNYL (PF) 25 mcg Route: IVP; Site: left upper arm; lw1 20:45 Follow up: Response: No adverse reaction; RASS: Alert and Calm (0) jd3 20:15 Drug: vancoMYCIN 1 grams Route: IVPB; Infused Over: 2 hrs; Site: left antecubital; jd3 21:20 Follow up: Response: No adverse reaction; IV Status: Completed infusion; IV Intake: jd3 150ml 21:22 Drug: Propofol 5 mcg/kg/min Route: IV; Rate: calculated rate; Site: left antecubital; jd3 23:00 Follow up: Response: No adverse reaction; IV Status: Infusion continued upon admission jd3 22:32 Drug: Lovenox 40 mg Route: Sub-Q; Site: abdomen; jd3 23:00 Follow up: Response: No adverse reaction jd3 22:33 Drug: Tylenol Suppository 650 mg Route: DE; jd3 23:00 Follow up: Response: No adverse reaction jd3 22:38 Drug: fentaNYL (PF) 50 mcg Route: IVP; Site: left antecubital; jd3 05/08 00:41 Follow up: Response: No adverse reaction; RASS: Light sedation (-2) jd3 05/07 22:40 Drug: Zofran (Ondansetron) 4 mg Route: IVP; Site: left antecubital; jd3 23:40 Follow up: Response: No adverse reaction jd3 22:46 Not Given (Other Intervention Used): Albuterol HFA Inhaler 2 puffs Inhalation once jd3 Intake: 17:15 IV: 500ml; Total: 500ml. ph 20:15 IV: 150ml; Total: 650ml. jd3 21:20 IV: 150ml; Total: 800ml. jd3 Outcome: 21:28 Decision to Hospitalize by Provider. [facility] 05/08 00:14 Admitted to ER Hold. Please see [facility] for further documentation. jd3 Condition: stable Instructed on the need for admit. 17:03 Patient left the ED. ph Addendum: 05/08/2019 21:15 Addendum: Other pt medicated with Etomidate 20 mg, and succinylcholine 100 mg for j d3 intubation. pt with no adverse reactions. Signatures: Dispatcher [employer] EDMS Slick Tom PA PA jmm Quilty, Betty bq Ballard, Brenda, RN RN Venice Carrera ms, Audri, RN RN aa5 Neena Collins RN RN ss Hall, Patricia, RN RN Bimal Menezes Jonathon, RN RN jd3 Carmen Mata RN RN lw1 Corrections: (The following items were deleted from the chart) 16:17 16:14 Accessed US guided midline placed. Pt tolerated well. 20 gauge, 10 cm power ss glide. Flushes well, blood return noted. ss 05/08 00:39 05/07 20:48 Reassessment: Patient and/or family updated on plan of care and expected jd3 duration. Pain level reassessed. pt reporting increased shortness of breath, pt asking for further assistance in helping her breath, pt giving permission to intubate. provider notified. j 05/08 00:39 05/07 23:00 Reassessment: Patient and/or family updated on plan of care and expected jd3 duration. Pain level reassessed. charting continued in [facility]. j 05/08 00:05/07 22:15 Reassessment: Patient appears in no apparent distress at this time. No jd3 changes from previously documented assessment. Patient and/or family updated on plan of care and expected duration. Pain level reassessed. monitoring intubated pt, no distress noted at this time. j 05/08 00:39 05/07 22:45 Reassessment: Patient appears in no apparent distress at this time. Patient jd3 and/or family updated on plan of care and expected duration. Pain level reassessed. nurses at bedside j 05/08 00:41 05/07 23:30 Response: No adverse reaction; RASS: Alert and Calm (0) [facility] 01:05/07 20:48 Reassessment: Patient and/or family updated on plan of care and expected jd3 duration. Pain level reassessed. pt reporting increased shortness of breath, pt asking for further assistance in helping her breath, pt giving permission to intubate. provider notified. jd3 05/08 01:05/07 21:15 Reassessment: Patient appears in no apparent distress at this time. Patient jd3 and/or family updated on plan of care and expected duration. Pain level reassessed. pt intubated. no apparent distress at this time. jd3 05/08 01:05/07 21:15 Respiratory: Airway via oral intubation pt tolerating ventilator well [facility] 01:05/07 23:00 Reassessment: Patient appears in no apparent distress at this time. No jd3 changes from previously documented assessment. Patient and/or family updated on plan of care and expected duration. Pain level reassessed. charting continued in [facility]. jd3 05/08 00:05/07 22:15 Reassessment: Patient appears in no apparent distress at this time. No jd3 changes from previously documented assessment. Patient and/or family updated on plan of care and expected duration. Pain level reassessed. monitoring intubated pt, no distress noted at this time. jd3 05/08 00:05/07 22:45 Reassessment: Patient appears in no apparent distress at this time. No jd3 changes from previously documented assessment. Patient and/or family updated on plan of care and expected duration. Pain level reassessed. nurses at bedside jd3 05/08 00:05/07 19:45 Respiratory: Reports shortness of breath at rest cough that is jd3 non-productive, persistent Airway is patent Respiratory effort is labored, shallow, weak, Respiratory pattern is hyperventilation tachypnea jd3 05/08 03:05/07 21:15 Reassessment: Patient and/or family updated on plan of care and expected jd3 duration. Pain level reassessed. pt intubated. no apparent distress at this time. monitoring intubated pt, pt post intubation, pt appears less labored with vent. pt's respirations appear more relaxed. jd3 05/08 03:33 05/07 21:15 Reassessment: Patient and/or family updated on plan of care and expected jd3 duration. Pain level reassessed. pt intubated. no apparent distress at this time. monitoring intubated pt, pt post intubation, pt appears less labored with vent. pt's respirations appear more relaxed. Dr. Mondragon, Slick PA, Max RN, Remington RT, Roberta RT at bedside for intubation. jd3
--- NOTE | 2019-05-08 21:29 | EDPHYS ---
Physician Documentation [facility] Name: Kiley Ortega Age: 73 yrs Sex: Female : 1945 Arrival Date: 05/08/2019 Time: 15:01 Bed 28 Private MD: ED Physician Eze Aguilera HPI: 05/07 15:00 This 73 yrs old Female presents to ER via EMS with complaints of Fever. jmm 15:00 Onset: The symptoms/episode began/occurred gradually, 2 day(s) ago. Modifying factors: jmm there are no obvious modifying factors. Associated signs and symptoms: Pertinent positives: shortness of breath. This is a 73 year old female with a history of COPD that presents to the ED with complaints of fever, shortness of breath. Denies abdominal pain. Patient is s/p cholecystectomy. . Denies vomiting, diarrhea. . Historical: - Allergies: 15:07 Iodinated Contrast Media - IV Dye; ph 15:07 Tegretol; ph - Home Meds: 15:19 amlodipine 10 mg tab for Hypertension [Active]; aspirin 81 mg Oral TbEC 1 tab once ph daily [Active]; atorvastatin 20 mg Oral tab 1 tab once daily [Active]; Benadryl 25 mg Oral cap 1 cap twice a day [Active]; fluxetine 40 mg once daily [Active]; Glimepiride Oral [Active]; Insulin: Humalog Sub-Q [Active]; Januvia Oral [Active]; losartan 100 mg Oral tab 1 tab once daily for Hypertension [Active]; Lyrica 300mg Oral 1 cap 2 times per day for Diabetic Peripheral Neuropathy [Active]; metformin 500 mg Oral tab 2 tabs 2 times per day for Type 2 Diabetes Mellitus [Active]; omeprazole 40 mg Oral cpDR 1 cap once daily for Gastroesophageal reflux [Active]; pregabalin 300 mg Oral 1 cap 2 times per day [Active]; tylenol 500 mg twice a day [Active]; - PMHx: 15:07 breast cancer-right side; cervical cancer; COPD; Diabetes - NIDDM; Hypertension; ph Myopathy; neuropathy; TIA; - PSHx: 15:07 Hysterectomy; LYMPHNODES, RIGHT; Appendectomy; Cholecystectomy; ph - Immunization history:: Adult Immunizations unknown. - Social history:: Smoking status: Patient denies any tobacco usage or history of. ROS: 15:00 Constitutional: Positive for body aches, fever. jmm 15:00 Respiratory: Positive for cough, shortness of breath. 15:00 Abdomen/GI: Negative for abdominal pain, nausea and vomiting, diarrhea. 15:00 All other systems are negative. Exam: 15:00 Constitutional: This is a well developed, well nourished patient who is awake, alert, jmm and in no acute distress. Head/Face: atraumatic. 15:00 Cardiovascular: Rate: normal, Rhythm: regular. 15:00 Respiratory: moderate respiratory distress is noted, Respirations: labored breathing, that is moderate, Breath sounds: bronchial sounds, that are moderate, are scattered. 15:00 Abdomen/GI: Inspection: obese Palpation: abdomen is soft and non-tender, in all quadrants. 15:00 Musculoskeletal/extremity: ROM: intact in all extremities. 15:00 Skin: Appearance: Color: normal in color. 15:00 Neuro: Motor: is normal. 15:00 Psych: Behavior/mood is pleasant, cooperative. Vital Signs: 15:02 BP 141 / 59; Pulse 108; Resp 24; Temp 100.7(A); Pulse Ox 79% on R/A; Weight 83.91 kg; ph Height 5 ft. 2 in. (157.48 cm); 16:00 BP 137 / 89; Pulse 102; Resp 24; Pulse Ox 97% on 100% Non-rebreather mask; ph 17:00 BP 140 / 63; Pulse 96; Resp 22; Pulse Ox 97% on 100% Non-rebreather mask; ph 18:00 BP 130 / 76; Pulse 98; Resp 22; Temp 99.8(A); Pulse Ox 98% on 100% Non-rebreather mask; ph 19:37 BP 154 / 63; Pulse 99; Resp 25; Pain 8/10; lw1 20:46 BP 135 / 56; Pulse 107; Resp 24; Pulse Ox 97% on Non-rebreather mask; oe 21:19 BP 148 / 65; Pulse 165; Resp 23; Pulse Ox 94% on 90% FiO2 ETT vent; oe 22:00 BP 117 / 63; Pulse 90; Resp 25; Pulse Ox 97% on 90% FiO2 ETT vent; oe 22:47 BP 121 / 60; Pulse 94; Resp 22; Pulse Ox 99% on ETT vent; lw1 23:00 BP 137 / 73; Pulse 102; Resp 23 S; Pulse Ox 99% on 90% FiO2 ETT vent; jd3 23:30 BP 127 / 61; Pulse 94; Resp 20 S; Pulse Ox 100% on 90% FiO2 ETT vent; jd3 05/08 00:00 BP 120 / 60; Pulse 92; Resp 25 S; Pulse Ox 100% on 90% FiO2 ETT vent; d3 05/07 15:02 Body Mass Index 33.84 (83.91 kg, 157.48 cm) ph Procedures: 05/07 21:25 Intubation: Intubated orally using # 3 [place] blade with 7.0 mm ETT. was successful on [facility] first attempt. Ventilated with ventilator. Tube secured Placement verified by Patient tolerated well. MDM: 15:17 Patient medically screened. [facility] 21:25 Data reviewed: vital signs, nurses notes. Counseling: I had a detailed discussion with [facility] the patient and/or guardian regarding: the historical points, exam findings, and any diagnostic results supporting the discharge/admit diagnosis, lab results, radiology results, the need for further work-up and treatment in the hospital. ED course: I discussed the patient with Dr. Ivan whom is hr receptionist for Dr. Martínez. 05/07 15:02 Order name: Amylase, Serum; Complete Time: 15:56 05/07 15:02 Order name: Basic Metabolic Panel; Complete Time: 15:56 05/07 15:02 Order name: Blood Culture Adult (2) 05/07 15:02 Order name: CBC with Diff; Complete Time: 15:41 05/07 15:02 Order name: Ckmb; Complete Time: 15:56 05/07 15:02 Order name: CPK; Complete Time: 15:56 05/07 15:02 Order name: Lactate; Complete Time: 15:54 05/07 15:02 Order name: LFT's; Complete Time: 15:56 05/07 15:02 Order name: Lipase; Complete Time: 15:56 05/07 15:02 Order name: Procalcitonin; Complete Time: 16:39 05/07 15:02 Order name: Protime (+inr); Complete Time: 15:54 05/07 15:02 Order name: Ptt, Activated; Complete Time: 15:54 ss 05/07 15:02 Order name: Troponin (emerg Dept Use Only); Complete Time: 15:56 ss 05/07 15:03 Order name: glucometer results - FOR PT WITH NO ID; Complete Time: 15:41 aa5 05/07 17:34 Order name: Misc. Lab Test; Complete Time: 18:32 ph 05/07 18:07 Order name: Influenza Screen (A ; Complete Time: 18:32 EDMS 05/07 18:15 Order name: Urinalysis W/Microscopic; Complete Time: 18:32 EDMS 05/07 19:23 Order name: LDH; Complete Time: 19:55 [facility] 05/07 19:23 Order name: D-Dimer; Complete Time: 19:55 [facility] 05/07 19:23 Order name: Ferritin; Complete Time: 19:55 [facility] 05/07 19:50 Order name: ABG [facility] 05/07 19:51 Order name: ABG Arterial Blood Gas; Complete Time: 20:42 EDMS 05/08 00:44 Order name: ABG jd3 05/08 01:19 Order name: ABG Arterial Blood Gas; Complete Time: 05:50 EDMS 05/08 05:59 Order name: Basic Metabolic Panel; Complete Time: 10:29 EDMS 05/08 06:13 Order name: CBC with Automated Diff; Complete Time: 10:29 EDMS 05/08 09:25 Order name: Glucose, Ancillary Testing; Complete Time: 10:29 EDMS 05/08 09:42 Order name: Amylase Level; Complete Time: 10:29 EDMS 05/07 15:02 Order name: Chest Single View XRAY; Complete Time: 15:56 ss 05/07 15:02 Order name: Accucheck; Complete Time: 15:37 ss 05/07 15:02 Order name: Cardiac monitoring; Complete Time: 15:37 ss 05/07 15:02 Order name: EKG - Nurse/Tech; Complete Time: 18:43 ss 05/07 15:02 Order name: IV Saline Lock - Large Bore; Complete Time: 18:43 ss 05/07 15:02 Order name: Labs collected and sent; Complete Time: 15:37 ss 05/07 15:02 Order name: O2 Per Protocol; Complete Time: 15:37 ss 05/07 15:02 Order name: O2 Sat Monitoring; Complete Time: 15:37 ss 05/07 15:02 Order name: Urine Dipstick-Ancillary (obtain specimen); Complete Time: 18:56 ss 05/07 15:17 Order name: CT Chest Abdomen Pelvis W/O Contrast; Complete Time: 19:18 m 05/07 22:26 Order name: XRAY Chest (1 view) rn 05/07 23:23 Order name: Intubation Setup; Complete Time: 00:41 bb 05/07 23:24 Order name: RAD; Complete Time: 05:50 EDMS 05/08 09:42 Order name: Lipase; Complete Time: 10:29 EDMS 05/08 09:44 Order name: Phosphorus; Complete Time: 10:29 EDMS 05/08 09:44 Order name: Magnesium; Complete Time: 10:29 EDMS 05/08 09:56 Order name: RAD; Complete Time: 10:29 EDMS Administered Medications: 16:14 Drug: NS 0.9% (30 ml/kg) 30 ml/kg Route: IV; Rate: bolus; Site: left upper arm; ss 17:15 Follow up: Response: No adverse reaction; IV Status: Completed infusion; IV Intake: ph 500ml 17:50 Drug: fentaNYL (PF) 25 mcg Route: IVP; Site: left antecubital; ph 18:43 Follow up: Response: No adverse reaction; Pain is decreased ph 18:00 Drug: Zosyn 3.375 grams Route: IVPB; Infused Over: 60 mins; Site: left antecubital; ph 18:43 Follow up: Response: No adverse reaction; IV Status: Completed infusion ph 18:05 Drug: fentaNYL (PF) 25 mcg Route: IVP; Site: left antecubital; ph 18:44 Follow up: Response: No adverse reaction; Pain is decreased ph 18:15 Drug: Zofran (Ondansetron) 4 mg Route: IVP; Site: left antecubital; ph 18:43 Follow up: Response: No adverse reaction; Nausea is decreased ph 18:43 Drug: LevaQUIN 750 mg Volume: 150 ml; Route: IVPB; Infused Over: 90 mins; Site: left ph antecubital; 20:15 Follow up: Response: No adverse reaction; IV Status: Completed infusion; IV Intake: jd3 150ml 18:46 CANCELLED (Duplicate Order): NS 0.9% 500 ml IV at bolus once ph 19:45 Drug: fentaNYL (PF) 25 mcg Route: IVP; Site: left upper arm; lw1 20:45 Follow up: Response: No adverse reaction; RASS: Alert and Calm (0) jd3 20:15 Drug: vancoMYCIN 1 grams Route: IVPB; Infused Over: 2 hrs; Site: left antecubital; jd3 21:20 Follow up: Response: No adverse reaction; IV Status: Completed infusion; IV Intake: jd3 150ml 21:22 Drug: Propofol 5 mcg/kg/min Route: IV; Rate: calculated rate; Site: left antecubital; jd3 23:00 Follow up: Response: No adverse reaction; IV Status: Infusion continued upon admission jd3 22:32 Drug: Lovenox 40 mg Route: Sub-Q; Site: abdomen; jd3 23:00 Follow up: Response: No adverse reaction jd3 22:33 Drug: Tylenol Suppository 650 mg Route: IL; jd3 23:00 Follow up: Response: No adverse reaction jd3 22:38 Drug: fentaNYL (PF) 50 mcg Route: IVP; Site: left antecubital; jd3 05/08 00:41 Follow up: Response: No adverse reaction; RASS: Light sedation (-2) jd3 05/07 22:40 Drug: Zofran (Ondansetron) 4 mg Route: IVP; Site: left antecubital; jd3 23:40 Follow up: Response: No adverse reaction jd3 22:46 Not Given (Other Intervention Used): Albuterol HFA Inhaler 2 puffs Inhalation once jd3 Disposition: 05/09 07:34 Co-signature as Attending Physician, Eze Aguilera MD I agree with the assessment and [facility] plan of care. Disposition: 05/08/19 21:28 Hospitalization ordered by Shivani Anguiano for Inpatient Admission. Preliminary diagnosis are Multifocal Pneumonia, Hypoxia. - Bed requested for Intensive Care Unit. - Status is Inpatient Admission. ph - Condition is Stable. - Problem is new. - Symptoms are unchanged. Signatures: Dispatcher [employer] EDChina Osorio RN RN dw Anderson, Corey, MD MD cha Mickail, Joel, PA PA jmm Ballard, Brenda, RN RN bb Nieto, Roman, MD MD rn Smirch, Shelby, RN RN Amie Wilson RN RN Max Stiles, RN RN jd3 Cramen Mata, RN RN lw1 Corrections: (The following items were deleted from the chart) 05/07 18:14 15:03 UA MICROSCOPIC+U.LAB.BRZ ordered. EDMS EDMS 18:15 18:03 URINALYSIS+U.LAB.BRZ ordered. EDLA EDMS 18:46 18:45 NS 0.9% 500 ml IV at bolus once ordered. ph ph 21:34 21:28 Hospitalization Ordered by Shivani Anguiano MD for Inpatient Admission. Preliminary dw diagnosis is Multifocal Pneumonia; Hypoxia. Bed requested for Intensive Care Unit. Status is Inpatient Admission. Condition is Stable. Problem is new. Symptoms are unchanged. [facility] 05/08 15:02 05/07 21:34 05/08/2019 21:28 Hospitalization Ordered by Shivani Anguiano MD for Inpatient dw Admission. Preliminary diagnosis is Multifocal Pneumonia; Hypoxia. Bed requested for [facility] ER HOLD. Status is Inpatient Admission. Condition is Stable. Problem is new. Symptoms are unchanged. 05/08 17:03 15:02 05/08/2019 21:28 Hospitalization Ordered by Shivani Anguiano MD for Inpatient ph Admission. Preliminary diagnosis is Multifocal Pneumonia; Hypoxia. Bed requested for Intensive Care Unit. Status is Inpatient Admission. Condition is Stable. Problem is new. Symptoms are unchanged. dw
[2019-05-08] MEDS ORDERED: ONDANSETRON 4 MG/2 ML VIAL IV PRN (21:37)
[2019-05-08] MEDS ORDERED: VANCOMYCIN/NS 1 gm 1 GM/250 ML BAG IVPB SCH (21:45)
[2019-05-08] MEDS: D5.45NS W/KCL 20MEQ 1,000 ML IV SCH (22:00)
[2019-05-08] MEDS ORDERED: Levofloxacin 750mg IV 750 MG/150 ML BAG IV SCH (22:00)
[2019-05-08] MEDS ORDERED: ACETAMINOPHEN 650MG/RECT SUPP PR ONE (22:23)
--- NOTE | 2019-05-08 23:23 | RAD REPORT ---
EXAM DESCRIPTION: Bhavik Single View05/08/2019 10:47 pm CLINICAL HISTORY: Shortness of breath COMPARISON: April 29 FINDINGS: Since an earlier film on the same date an endotracheal tube has been inserted with its tip well above the dalia. A nasogastric tube has been inserted. The tip is not well seen. Mild worsening in bilateral pulmonary opacities probably pneumonia
[2019-05-08] MEDS ORDERED: D5.45NS W/KCL 20MEQ 1,000 ML IV ONE (23:28)
[2019-05-08] MEDS ORDERED: HALOPERIDOL LACT 5 MG/ML INJ IV PRN (23:39)
[2019-05-08] MEDS ORDERED: propofoL 1,000 MG/100 ML VIAL IV PRN (23:39)
[2019-05-08] MEDS ORDERED: NA CHLORIDE 0.9% 250 ML IV PRN (23:39)
[2019-05-08] MEDS: LORazepam 2 MG/ML VIAL IV PRN (23:46)
[2019-05-08] MEDS ORDERED: LORazepam 2 MG/ML VIAL ONE (23:47)
[2019-05-09 00:53] LABS: Blood Gas Oxyhemoglobin 93.7 % (94-97); Blood O2 Saturation 94.2 % (92-98.5)
[2019-05-09] MEDS ORDERED: PIPERACIL/TAZO 4.5 GM VIAL IV ONE (01:00)
[2019-05-09] MEDS: PIPER/TAZO/NS 3.375gm 3.375 GM/100 ML BAG IVPB SCH ×4 (01:00→17:29)
[2019-05-09] MEDS ORDERED: propofoL 1,000 MG/100 ML VIAL IV ONE ×3 (01:01→12:20)
[2019-05-09] MEDS: propofoL 1,000 MG/100 ML VIAL IV PRN ×4 (01:10→23:00)
[2019-05-09] MEDS ORDERED: ACETAMINOPHEN 500 MG TAB ONE (02:15)
[2019-05-09] MEDS: ACETAMINOPHEN 500 MG TAB PO PRN (02:21)
[2019-05-09 05:54] LABS: Absolute Lymphocytes (CBC) 1.2 K/uL (0.7-4.9); Basophils % 0.4 % (0-1.3); Hematocrit 28.4 % (36.0-45.0); Lymphocytes % 10.5 % (15.3-44.8); MPV 8.5 fL (7.6-11.3); RBC Red Blood Cell Count 3.42 M/uL (3.86-4.86)
[2019-05-09 05:59] LABS: BUN Blood Urea Nitrogen 13 mg/dL (7-18); Bicarbonate 23 mmol/L (21-32); Glucose Level 219 mg/dL (74-106); Potassium 3.4 mmol/L (3.5-5.1); Sodium Level 140 mmol/L (136-145)
[2019-05-09] MEDS: D5.45NS W/KCL 20MEQ 1,000 ML IV SCH ×2 (08:00→17:17)
[2019-05-09] MEDS ORDERED: D5.45NS W/KCL 20MEQ 1,000 ML IV ONE (08:31)
[2019-05-09] MEDS ORDERED: FAMOTIDINE 20 MG/2 ML VIAL IV ONE (08:32)
[2019-05-09] MEDS ORDERED: PIPER/TAZO/NS 3.375gm 3.375 GM/100 ML BAG ONE (08:32)
[2019-05-09] MEDS ORDERED: ENOXAPARIN 40 MG/0.4 ML SQ ONE (08:32)
[2019-05-09] MEDS ORDERED: KCL 20 MEQ/100 mL IVPB 20 MEQ/100 ML BAG IV ONE (08:32)
[2019-05-09] MEDS ORDERED: KCL 20 MEQ/100 mL IVPB 20 MEQ/100 ML BAG IV SCH (09:00)
[2019-05-09] MEDS: ENOXAPARIN 40 MG/0.4 ML SQ SCH (09:00)
[2019-05-09] MEDS: FAMOTIDINE 20 MG/2 ML VIAL IV SCH ×2 (09:00→22:05)
[2019-05-09] MEDS ORDERED: LORazepam 2 MG/ML VIAL ONE ×2 (09:01→13:38)
--- NOTE | 2019-05-09 09:18 | EKG ---
Test Date: 2019-05-08 Test Time: 15:05:38 Aerial Photographer: ROMA MEASUREMENT RESULTS: Intervals: Rate: 107 CO: 148 QRSD: 68 QT: 346 QTc: 461 [place]: P: 95 CO: 148 QRS: 48 T: 59 INTERPRETIVE STATEMENTS: Sinus tachycardia Otherwise normal ECG Compared to ECG 05/05/2019 00:35:29 Sinus rhythm no longer present Electronically Signed On 05-09-19 09:16:31 CDT by Jose Lovett
[2019-05-09] MEDS: LORazepam 2 MG/ML VIAL IV PRN ×2 (09:27→13:48)
[2019-05-09 09:42] LABS: Amylase Level 30 U/L (25-115); Lipase 92 U/L (73-393)
[2019-05-09 09:44] LABS: Magnesium 1.9 mg/dL (1.8-2.4); Phosphorus 1.5 mg/dL (2.5-4.9)
[2019-05-09] MEDS: VANCOMYCIN/NS 1 gm 1 GM/250 ML BAG IVPB SCH ×2 (09:50→20:53)
--- NOTE | 2019-05-09 09:56 | RAD REPORT ---
EXAM DESCRIPTION: Bhavik Single View05/09/2019 6:28 am CLINICAL HISTORY: Chest pain COMPARISON: April FINDINGS: Endotracheal tube has its tip 4 centimeters above the dalia No significant change in the left alveolar opacities. Mild improvement in the right basilar opacities . No change in the right upper lobe opacities. Heart remains enlarged
[2019-05-09] MEDS ORDERED: D50W 25 GM/50 ML SYRINGE/VIAL IV PRN ×2 (10:57→11:03)
[2019-05-09] MEDS ORDERED: GLUCAGON 1 MG/VIAL IM PRN ×2 (10:57→11:03)
[2019-05-09] MEDS: INSULIN -REGULAR HUMAN 50 UNIT/0.5 ML ML SQ SCH ×3 (11:28→22:03)
[2019-05-09] MEDS: POTASS/SODIUM PHOSPHATE 1 PKT POWD.PACK PO SCH ×4 (12:25→15:00)
[2019-05-09] MEDS: ALBUTEROL 2.5 MG/3 ML NEB SOL NEB SCH ×2 (14:00→20:00)
[2019-05-09] MEDS ORDERED: Levofloxacin 750mg IV 750 MG/150 ML BAG IV SCH (18:00)
--- NOTE | 2019-05-09 20:59 | HP ---
Date of Admission: 05/08/2019 History Of Present Illness: A 73-year-old female, who presented to the emergency room with a fever a t home up to 102.7. Patient has had a week earlier cholecystectomy and so discharged few days ago; h owever, she came back with fever. In the emergency room, her pulse oximetry was about 80% on room ai r. I went ahead and admitted the patient for multifocal pneumonia, was found by her chest x-ray. Past Medical History: Kindly look her recent admit and discharge notes. Social History: Kindly look her recent admit and discharge notes. Family History: Kindly look her recent admit and discharge notes. Medications: Kindly look her recent admit and discharge notes. Allergies: KINDLY LOOK HER RECENT ADMIT AND DISCHARGE NOTES. Physical Examination: General: The patient is intubated after she was in the emergency room. She had to be intubated with acute respiratory failure on top of her chronic COPD. Vital Signs: Patient's blood pressure 125/50, pulse 80. In the emergency room on presentation, her temperature was 102, went down to 100 Fahrenheit. Heart: Regular rate and rhythm. Chest: Bilateral crackles, mild. Abdomen: Soft, benign. Bowel sounds are active. Extremities: No edema. No cyanosis. Peripheral pulses are felt. No swelling. Neurological: Patient is still sedated right now because of intubation. Laboratory Data: CBC; white cell count 15.4, hemoglobin 9.4, hematocrit 29.8, platelets 303. D-dime r 1212. ABGs on mechanical ventilation, pH 7.41, pCO2 39.9, PaO2 87.5, saturation 98.7, inspired O2 was 90%. Chemistry, potassium 3.4, chloride 110, phosphorus 1.5, calcium 7.9, blood sugar fingerstic ks noted in the 200s. Assessment And Plan: Multifocal pneumonia with acute respiratory failure. The patient is on mechani mike ventilation right now. Torres virus test was sent and results are still pending. The patient wa s put in isolation and put her on IV antibiotic for her pneumonia with vancomycin and Zosyn. Dr. Malcolm robbins has been consulted because of her recent surgery, cholecystectomy, and also elevated D-dimer, s o we went ahead and ordered a venous study for PVD and possible pulmonary embolism. We will do also a V/Q scan; however, we will discuss wait on the on the results for the vascular study. Patient is o n Lovenox, but we will continue also her treatment for her multifocal pneumonia and pending her coron a virus test. We will monitor her blood sugar and put her on sliding scale and we will reinstate her home medications for blood pressure as her blood pressure started to require that. Look orders for details. LÁZARO/VIJAY Voice ID: [id number]
[2019-05-10] MEDS: ALBUTEROL 2.5 MG/3 ML NEB SOL NEB SCH ×2 (01:22→08:00)
[2019-05-10] MEDS: PIPER/TAZO/NS 3.375gm 3.375 GM/100 ML BAG IVPB SCH ×3 (01:34→17:46)
[2019-05-10] MEDS: FENTANYL CITR 100 MCG/2 ML IV PRN ×2 (02:00→23:11)
[2019-05-10] MEDS: D5.45NS W/KCL 20MEQ 1,000 ML IV SCH (04:00)
[2019-05-10] MEDS: propofoL 1,000 MG/100 ML VIAL IV PRN ×5 (05:37→23:00)
[2019-05-10 05:50] LABS: Absolute Lymphocytes (CBC) 1.4 K/uL (0.7-4.9); Basophils % 0.4 % (0-1.3); Lymphocytes % 15.8 % (15.3-44.8); MPV 8.3 fL (7.6-11.3); RBC Red Blood Cell Count 3.16 M/uL (3.86-4.86)
[2019-05-10 06:01] LABS: BUN Blood Urea Nitrogen 6 mg/dL (7-18); Bicarbonate 27 mmol/L (21-32); Glucose Level 196 mg/dL (74-106); Magnesium 1.9 mg/dL (1.8-2.4); Phosphorus 2.2 mg/dL (2.5-4.9); Potassium 3.3 mmol/L (3.5-5.1); Sodium Level 142 mmol/L (136-145)
--- NOTE | 2019-05-10 08:01 | RAD REPORT ---
EXAM DESCRIPTION: RAD - Chest Single View - 05/10/2019 7:32 am CLINICAL HISTORY: f/u pneumonia/respirtory failure COMPARISON: Portable May 08, portable May 07 TECHNIQUE: AP portable chest image was obtained 05/10/2019 7:32 am . FINDINGS: Endotracheal tube has not changed position. NG tube remains in place extending below the d iaphragm, off the field of view. Extensive alveolar opacification in the mid to lower left lung field is again noted. Left upper lobe may be fractionally improved. Differential is minimal. Dense consolidation in the right upper lobe right perihilar region is slightly worse. Patient has cheri e right upper lobe volume loss. Right base consolidation has not changed. Heart size is normal range. No enlarging pleural effusion. No pneumothorax. No acute bony abnormalit y seen. No acute aortic findings suspected. IMPRESSION: Dense consolidation in the right suprahilar region appear slightly worse. Patient has ri ght upper lobe volume loss. Bilateral lung base consolidation not substantially different from comparison. Left upper lobe consolidation may be fractionally improved. The differential is minimal.
[2019-05-10] MEDS ORDERED: ALBUTEROL 2.5 MG/3 ML NEB SOL NEB PRN (08:44)
--- NOTE | 2019-05-10 08:49 | P.CNS ---
Date of Consult: 05/10/19 Reason for Consult: Respiratory failure Chief Complaint: Respiratory failure bilateral pneumonia History of Present Illness: Patient is 73 years of age had a cholecystectomy over a week ago complaining of fever he cardiac hypoxic shortness of breath admitted here patient intubated currently covid. CT scan shows bilateral consolidation Allergies carbamazepine [From Tegretol] Allergy (Intermediate, Verified 12/06/18 23:36) Hives/Rash Iodinated Contrast Media [IV Dye, Iodine Containing Contrast ] Allergy (Intermediate, Verified 12/06/18 23:36) Hives Home Medications: Aspirin [Aspir-Low] 81 mg PO BEDTIME 04/30/17 Atorvastatin Calcium 20 mg PO BEDTIME 04/30/17 Fluoxetine HCl [Prozac] 40 mg PO DAILY 04/30/17 Losartan Potassium 100 mg PO DAILY 04/30/17 Metformin HCl 500 mg PO BID 04/30/17 Omeprazole [Prilosec] 20 mg PO 0630 04/30/17 Pregabalin [Lyrica] 300 mg PO BID 04/30/17 Diphenhydramine HCl [Benadryl Allergy] 25 mg PO DAILY 12/06/18 Insulin Lispro [Humalog] 56 units SQ DAILY 12/06/18 Ibuprofen 1 tab PO Q6H PRN 12/07/18 Arformoterol Tartrate [Brovana] 15 mcg NEB BIDRESP vial.neb 12/10/18 Glipizide S.a. [Glucotrol Xl*] 10 mg PO BIDWM tab 12/10/18 Ipratropium Neb [Atrovent*] 0.5 mg NEB [id number] amp 12/10/18 Amlodipine [Norvasc*] 5 mg PO DAILY 05/06/19 Cyanocobalamin (Vitamin B-12) [Vitamin B12] 2,500 mcg PO DAILY 05/06/19 Amox/Clavulanate [Augmentin 875-125 Tab] 875 mg PO Q12H 6 Days #12 tab 05/07/19 Codeine/APAP [Tylenol W/Codeine #3 tab] 1 tab PO Q4H PRN #30 tab 05/07/19 - Past Medical/Surgical History Diabetic: Yes -: CVA -: HTN -: TIA -: IDDM -: COPD -: BREAST AND CERVICAL CA -: ANEMIA -: DEPRESSION/ANXIETY -: HEADACHES -: Bladder Suspension sx 4 -: Left Ankle Surgery -: Stomach surgery (ureter sx) -: Breast biopsy -: appy -: hysterectomy - Family History Father Medical History: Hypertension, Stroke Mother Medical History: Hypertension, Diabetes - Social History Smoking Status: Never smoker Alcohol use: No CD- Drugs: No Caffeine use: Yes Place of Residence: Home Review of Systems is unable to be obtained Physical Examination Temp Pulse Resp BP Pulse Ox 99.3 F 84 22 H 116/48 L 96 05/10/19 04:00 05/10/19 06:00 05/10/19 06:00 05/10/19 06:00 05/10/19 06:00 General: Other (Examination deferred due to isolation for now) Laboratory Data (last 24 hrs) 05/08/19 09:10: Amylase 30, Lipase 92 - Problems (1) Respiratory failure Current Visit: Yes Status: Acute Plan: Patient is 73 years of age admitted with respiratory failure secondary to pneumonia recent cholecystectomy blood cultures are so far negative Dc levofloxacin continue with Zosyn vancomycin once COVID test is negative sputum cultures titrate sat to 90% Dc IV fluids containing in slight negative fluid balance Dc V/Q scan for now Qualifiers: Chronicity: acute
[2019-05-10] MEDS: INSULIN -REGULAR HUMAN 50 UNIT/0.5 ML ML SQ SCH ×4 (08:55→22:39)
[2019-05-10] MEDS: FAMOTIDINE 20 MG/2 ML VIAL IV SCH ×2 (09:00→22:43)
[2019-05-10] MEDS: ENOXAPARIN 40 MG/0.4 ML SQ SCH (09:00)
[2019-05-10] MEDS: VANCOMYCIN/NS 1 gm 1 GM/250 ML BAG IVPB SCH ×2 (09:00→22:35)
[2019-05-10] MEDS ORDERED: POTASSIUM 25 MEQ EFFERV TAB PO ONE (12:00)
--- NOTE | 2019-05-10 17:46 | RAD REPORT ---
EXAM DESCRIPTION: US - Extrem Venous W Compress Delvin - 05/10/2019 5:41 pm CLINICAL HISTORY: DVT Bilateral leg edema and swelling. COMPARISON: Extrem Venous W Compress Delvin dated 12/07/2018 TECHNIQUE: Real-time sonographic interrogation of the left and right lower extremity deep venous sys tems was performed. FINDINGS: Normal compressibility, flow augmentation, phasic flow and spontaneous flow is identified in both the left and right lower extremity deep venous systems. IMPRESSION: No sonographic evidence of left or right lower extremity deep venous thrombosis.
--- NOTE | 2019-05-10 19:45 | PN ---
Subjective: Patient is still on mechanical ventilation and sedated. However, she responds still wit h sedation by opening her eyes to calling her name. Objective: Vital Signs: Blood pressure 136/45, pulse 88, temperature 99.4. Heart: Regular rate and rhythm. Chest: Bilateral crackles. Abdomen: Soft, benign. Bowel sounds are active. Extremities: No edema. No cyanosis. Peripheral pulses are felt. Neurologic: As mentioned above. Laboratory Data: White cell count dropped down to 8.7, hemoglobin 8.4, hematocrit 26, platelets 266. ABGs noted. Chemistry: Potassium 3.3, chloride 110, BUN 6, creatinine 0.55. Blood sugar fingerst icks ranging between 225 to 175. Phosphorus 2.2. Calcium 7.9. Patient's coronavirus test came back negative. Imaging Data: Lower extremity venous study, no evidence of DVT. Chest x-ray showed consolidation in the right suprahilar region with right upper lobe volume loss, bilateral consolidation in the lung b ases, and left upper consolidation. Assessment And Plan: 1.Multifocal pneumonia along with acute respiratory failure. Patient is being treated with IV antib iotics and on mechanical ventilation. 2.Type 2 diabetes. We will put her on insulin sliding scale. 3.Electrolyte imbalance. She is on electrolyte protocol. 4.Anemia of chronic illness from diabetes, likely that was from after surgery on her gallbladder las t week. We will follow up her CBC. I do not think she is actively bleeding. 5.The rest of her chronic medical illnesses. She is stable on those. Her blood pressure is stable and manageable without putting her back on her home medications for that . Look orders for details. MFS/MODL Voice ID: [id number] Report ID: [id number]
[2019-05-10 21:41] LABS: Potassium 3.4 mmol/L (3.5-5.1)
[2019-05-11] MEDS: LORazepam 2 MG/ML VIAL IV PRN ×3 (02:32→21:47)
[2019-05-11] MEDS: PIPER/TAZO/NS 3.375gm 3.375 GM/100 ML BAG IVPB SCH ×3 (02:33→17:06)
[2019-05-11] MEDS: FENTANYL CITR 100 MCG/2 ML IV PRN ×5 (04:29→22:56)
--- NOTE | 2019-05-11 05:25 | EKG ---
Test Date: 2019-05-10 Test Time: 03:46:52 Street Light Servicer: RT Alcazar MEASUREMENT RESULTS: Intervals: Rate: 0 CO: QRSD: 0 QT: 0 QTc: 0 [place]: P: CO: QRS: 0 T: 0 INTERPRETIVE STATEMENTS: No QRS complexes found, no ECG analysis possible Compared to ECG 05/10/2019 03:37:06 cannot interpret Electronically Signed On 05-11-19 05:24:44 CDT by Jose Lovett
--- NOTE | 2019-05-11 05:25 | EKG ---
Test Date: 2019-05-10 Test Time: 03:37:06 Plumbing Inspector: RT Alcazar MEASUREMENT RESULTS: Intervals: Rate: 92 ND: 154 QRSD: 74 QT: 356 QTc: 440 [place]: P: 84 ND: 154 QRS: 57 T: 65 INTERPRETIVE STATEMENTS: Sinus rhythm with occasional premature ventricular complexes Otherwise normal ECG Compared to ECG 05/10/2019 03:32:43 Ventricular premature complex(es) now present Supraventricular tachycardia no longer present T-wave abnormality no longer present Electronically Signed On 05-11-19 05:24:46 CDT by Jose Lovett
--- NOTE | 2019-05-11 05:26 | EKG ---
Test Date: 2019-05-10 Test Time: 03:29:45 Green Meat Grader: RT Alcazar MEASUREMENT RESULTS: Intervals: Rate: 85 [place]: 154 QRSD: 74 QT: 388 QTc: 461 [place]: P: 90 [place]: 154 QRS: 59 T: 69 INTERPRETIVE STATEMENTS: Normal sinus rhythm Normal ECG Compared to ECG 05/08/2019 15:05:38 Sinus tachycardia no longer present Electronically Signed On 05-11-19 05:25:03 CDT by Jose Lovett
--- NOTE | 2019-05-11 05:26 | EKG ---
Test Date: 2019-05-10 Test Time: 03:32:43 [employer] Coxswain: RT Alcazar MEASUREMENT RESULTS: Intervals: Rate: 147 [place]: QRSD: 78 QT: 328 QTc: 513 [place]: P: [place]: QRS: 53 T: 49 INTERPRETIVE STATEMENTS: Supraventricular tachycardia Nonspecific T wave abnormality Abnormal ECG Compared to ECG 05/10/2019 03:29:45 T-wave abnormality now present Sinus rhythm no longer present Electronically Signed On 05-11-19 05:25:02 CDT by Jose Lovett
[2019-05-11 06:09] LABS: Absolute Lymphocytes (CBC) 1.6 K/uL (0.7-4.9); Basophils % 0.7 % (0-1.3); Hematocrit 27.4 % (36.0-45.0); Lymphocytes % 17.2 % (15.3-44.8); MPV 8.4 fL (7.6-11.3); RBC Red Blood Cell Count 3.43 M/uL (3.86-4.86)
[2019-05-11] MEDS ORDERED: POTASSIUM 25 MEQ EFFERV TAB PO ONE (06:37)
[2019-05-11 06:40] LABS: BUN Blood Urea Nitrogen 7 mg/dL (7-18); Bicarbonate 29 mmol/L (21-32); Glucose Level 160 mg/dL (74-106); Potassium 3.2 mmol/L (3.5-5.1); Sodium Level 142 mmol/L (136-145)
[2019-05-11] MEDS: VANCOMYCIN/NS 1 gm 1 GM/250 ML BAG IVPB SCH (08:23)
[2019-05-11] MEDS: INSULIN -REGULAR HUMAN 50 UNIT/0.5 ML ML SQ SCH ×5 (08:24→23:56)
[2019-05-11] MEDS: ENOXAPARIN 40 MG/0.4 ML SQ SCH (08:24)
[2019-05-11] MEDS: FAMOTIDINE 20 MG/2 ML VIAL IV SCH ×2 (08:25→20:51)
--- NOTE | 2019-05-11 09:27 | PN ---
Date of Progress Note: 05/11/2019 Ms. Ortega is 73. I saw her on 05/10/2019, because of recurrent supraventricular tachycardia. Overni ght, she has had 2 episodes of supraventricular tachycardia at a rate of 147, that resolved spontaneo usly without any treatment. No hemodynamic compromise or symptoms. Her potassium remains 3.2, and I would supplement that more vigorously. Her magnesium was 1.9, and I would give her 2 g of magnesium IV piggyback. She remains intubated, remains on antibiotics, Levaquin, Zosyn and vancomycin. She i s on Lovenox and insulin. Patient remains intubated. An echocardiogram is pending today. We will c clifton to follow. DANAE/VIJAY Voice ID: [id number] Report ID: [id number]
--- NOTE | 2019-05-11 09:36 | CON ---
Date of Consultation: 05/10/2019 Patient was admitted on 05/08/2019. I saw the patient on 05/10/2019. Reason For Consultation: Supraventricular tachycardia. History Of Present Illness: Ms. Ortega is a 73-year-old woman without any previous cardiac history wh o was admitted for multifocal pneumonia, intubated, remains on ventilator. Her last PO2 is 87, pCO2 of 39, pH of 7.41. She had a hemoglobin of 8.8, potassium of 3.2, and magnesium 1.9. Her creatinine was 0.45. While she is being monitored and treated for pneumonia, she has been having short runs of supraventricular tachycardia that is nonsustained without any hemodynamic compromise or symptoms marta t could be reported. Patient had been getting supplements of potassium, but not magnesium. As state d earlier no previous cardiac history. An echocardiogram that was done in November of 2018 is normal. Another echocardiogram is pending. Past Medical History: Diabetes, COPD, hypertension, history of TIA, neuropathy, myopathy. She is st atus post appendectomy and cholecystectomy. She also has a history of cervical cancer and breast can cer. Review of Systems: Negative. Social History: Negative. Family History: Negative. Medications: At home include Norvasc, Brovana, aspirin, Lipitor, Glucotrol, insulin, losartan, metfo rmin, Prilosec, Lyrica, and Prozac. Physical Examination: General: She appeared to be in no acute distress, intubated, but awake. Vital Signs: Stable. Afebrile. Her last run of supraventricular tachycardia was approximately an h our ago. She is in sinus rhythm now. Afebrile. HEENT: Negative. Neck: Supple. No bruit. Chest: Reveals some crackles both bases. Cardiac: Exam revealed a regular rhythm and rate. No murmurs, gallops, or rubs. Abdomen: Benign. Extremities: Revealed no clubbing, cyanosis, or edema. Skin: Her skin is dry and intact. Pulses were present in the dorsalis pedis and posterior tibial bi laterally. Impression And Plan: Supraventricular tachycardia secondary to hypoxia, low magnesium, low potassium . She has had a normal echocardiogram in November of 2018. No cardiac history. No hemodynamic compr omise. Another echocardiogram is pending. I would supplement with potassium and magnesium and treat her with antibiotics and inhalers as she is getting, watch her electrolytes. I do not recommend any specific treatment for the supraventricular tachycardia at this point. Her other issues include chr onic obstructive pulmonary disease, diabetes, hypertension, all of those are well controlled. She neumann s had a history of transient ischemic attack, neuropathy and myopathy. All of those are well control led. I will continue to follow her. DANAE/VIJAY Voice ID: [id number] Report ID: [id number]
--- NOTE | 2019-05-11 09:36 | RAD REPORT ---
EXAM DESCRIPTION: Bhavik Single View05/11/2019 9:06 am CLINICAL HISTORY: sob COMPARISON: May 10, 2019 FINDINGS: Bilateral pulmonary opacities have partially resolved Endotracheal and nasogastric tubes remain in place No other change IMPRESSION: Mild to moderate improvement in diffuse bilateral pulmonary opacities
[2019-05-11 09:39] LABS: Blood Gas Oxyhemoglobin 87.9 % (94-97); Blood O2 Saturation 88.3 % (92-98.5)
--- NOTE | 2019-05-11 11:09 | ECHO ---
HEIGHT: 5 ft 2 in WEIGHT: 206 lb 0 oz DATE OF STUDY: 05/11/[address]: Shivani Anguiano MD 2-DIMENSIONAL: YES M.MODE: YES DOPPLER: YES COLOR FLOW: YES TDS: YES PORTABLE: NO DEFINITY: NO BUBBLE STUDY: NO DIAGNOSIS: SUPRAVENTRICULAR TACHYCARDIA CARDIAC HISTORY: CATHERIZATION: NO SURGERY: NO PROSTHETIC VALVE: NO PACEMAKER: NO MEASUREMENTS (cm) DIASTOLIC (NORMALS) SYSTOLIC (NORMALS) IVSd 0.9 (0.6-1.2) LA Diam 3.0 (1.9-4.0) LVEF 65% LVIDd 4.8 (3.5-5.7) LVIDs 3.1 (2.0-3.5) %FS 35% LVPWd 1.1 (0.6-1.2) Ao Diam 2.4 (2.0-3.7) 2 DIMENSIONAL ASSESSMENT: RIGHT ATRIUM: NORMAL LEFT ATRIUM: NORMAL RIGHT VENTRICLE: NORMAL LEFT VENTRICLE: NORMAL TRICUSPID VALVE: NORMAL MITRAL VALVE: MILD MITRAL ANNULAR CALCIFICATION PULMONIC VALVE: NORMAL AORTIC VALVE: NORMAL PERICARDIAL EFFUSION: NONE AORTIC ROOT: NORMAL LEFT VENTRICULAR WALL MOTION: NORMAL DOPPLER/COLOR FLOW: NORMAL COMMENTS: MILD MITRAL ANNULAR CALCIFICATION. NORMAL LEFT VENTRICULAR SIZE AND FUNCTION. NO WALL MOTION ABNORMALITY. NO EFFUSION. NORMAL LEFT ATRIAL SIZE. TECHNOLOGIST: Frankie LAZARO
--- NOTE | 2019-05-11 12:37 | P.PN ---
Subjective Date of Service: 05/11/19 Chief Complaint: Respiratory failure bilateral pneumonia Subjective: Improving (Patient is improving condition stable sepsis improving on a ventilator) Review of Systems is unable to be obtained Physical Examination - Vital Signs Temperature: 97.1 F Blood Pressure: 142/47 Pulse: 88 Respirations: 16 Pulse Ox (%): 98 - Physical Exam General: Unresponsive Respiratory: Clear to auscultation bilaterally, Diminished, Crackles/rales Cardiovascular: Regular rate/rhythm Assessment & Plan - Problems (Diagnosis) (1) Respiratory failure Current Visit: Yes Status: Acute Plan: Patient admitted with respiratory failure secondary to pneumonia clinically patient is improving vital signs stable still hypoxic on 35% O2 or PO2 is 55 sputum cultures pending chest x-ray has improved echo is normal Qualifiers: Chronicity: acute
[2019-05-11] MEDS ORDERED: VITAL HP 1,000 ML BOT RTH SCH (16:00)
--- NOTE | 2019-05-11 19:28 | PN ---
Subjective: The patient is more awake today with good eye contact. She nods her head. Acknowledgin g she knows me. Physical Examination: Vital Signs: Blood pressure 130/78, pulse 82, temperature 97.1, and the previous shift also her temp erature was 97.1. Heart: Regular rate and rhythm. Chest: Bilateral crackles. Abdomen: Soft, nontender. Bowel sounds are active. Extremities: No edema. No cyanosis. Peripheral pulses are felt. Neurologic: As mentioned above. Laboratory And Imaging Data: ABGs on mechanical ventilation with inspired oxygen of 35%, pH is 7.47, pCO2 of 39.2, PO2 of 55.1, saturation 87.9. Echocardiogram showed left ventricular ejection fraction is 65%. Hemoglobin 8.8, hematocrit 27.4, platelets 340, white cell count of 9.1. Blood sugar fingersticks ra nged between 187 and 157, potassium 3.2. The rest of her chemistry is noted. Blood cultures, no mila wth to date. Sputum Gram stain, white cell count more than 25 white blood cells per high-power field . Assessment And Plan: 1.Multifocal pneumonia with acute respiratory failure on top of chronic respiratory failure in a pat ient with chronic obstructive pulmonary disease, responding well to current antibiotics and mechanica l ventilation. We will continue that. Appreciate Dr. Castro input, expect extubation soon. 2.Patient had an episode of supraventricular tachycardia for which Cardiology has seen the patient a nd ordered the echo and no further recommendation. 3.Anemia of chronic illness, stable. 4.Hypokalemia. Patient is on electrolyte protocol for replacement the patient is having the arrhythmia. 5.Type 2 diabetes. Patient's blood sugar is noted and she is on sliding scale moderate. Look order s for details. MFS/MODL Voice ID: [id number] Report ID: [id number]
[2019-05-11] MEDS: VANCOMYCIN 1.25 GM in NA CHLORIDE 0.9% 250 ML IVPB SCH (20:50)
[2019-05-11] MEDS: MIDAZOLAM HCL 2 MG/2 ML INJ IV PRN (20:51)
[2019-05-12] MEDS: PIPER/TAZO/NS 3.375gm 3.375 GM/100 ML BAG IVPB SCH ×3 (00:10→17:47)
[2019-05-12] MEDS: MIDAZOLAM HCL 2 MG/2 ML INJ IV PRN (00:30)
[2019-05-12] MEDS: LORazepam 2 MG/ML VIAL IV PRN ×2 (04:36→09:01)
[2019-05-12 05:07] LABS: Basophils % 1.1 % (0-1.3); Hematocrit 28.2 % (36.0-45.0); Lymphocytes % 20.1 % (15.3-44.8); MPV 8.2 fL (7.6-11.3); RBC Red Blood Cell Count 3.55 M/uL (3.86-4.86)
[2019-05-12] MEDS ORDERED: METOPROLOL TARTRATE 5 MG/5 ML INJ IV PRN (05:21)
[2019-05-12] MEDS ORDERED: METOPROLOL TARTRATE 5 MG/5 ML INJ IV ONE (05:21)
[2019-05-12 05:22] LABS: BUN Blood Urea Nitrogen 12 mg/dL (7-18); Bicarbonate 29 mmol/L (21-32); Glucose Level 228 mg/dL (74-106); Sodium Level 138 mmol/L (136-145)
[2019-05-12] MEDS: INSULIN -REGULAR HUMAN 50 UNIT/0.5 ML ML SQ SCH ×3 (05:34→18:29)
[2019-05-12] MEDS ORDERED: AMIODARONE IN DEXTROSE,ISO-OSM 360 MG/200 ML BAG IV ONE (05:39)
[2019-05-12] MEDS ORDERED: AMIODARONE HCL 900 MG in Dextrose 5%-Water 482 ML IV SCH ×2 (06:00→11:30)
[2019-05-12] MEDS: FENTANYL CITR 100 MCG/2 ML IV PRN (06:08)
[2019-05-12] MEDS ORDERED: POTASSIUM 25 MEQ EFFERV TAB PO ONE ×3 (06:20→21:00)
[2019-05-12 06:40] LABS: Phosphorus 3.2 mg/dL (2.5-4.9)
[2019-05-12] MEDS: ENOXAPARIN 40 MG/0.4 ML SQ SCH (08:03)
[2019-05-12] MEDS: FAMOTIDINE 20 MG/2 ML VIAL IV SCH ×2 (08:04→20:24)
[2019-05-12] MEDS: VANCOMYCIN 1.25 GM in NA CHLORIDE 0.9% 250 ML IVPB SCH ×2 (08:04→19:49)
--- NOTE | 2019-05-12 09:07 | RAD REPORT ---
EXAM DESCRIPTION: CHEST, ONE VIEW XR CLINICAL HISTORY: PICC Placement COMPARISON: None. TECHNIQUE: AP Chest. FINDINGS: Endotracheal tube is in the midtrachea. Feeding tube extends into the left upper abdomen i n the region of the stomach. Right subclavian PICC line tip is in the upper aspect of the superior ve na cava. Cardiac size is normal. There is pulmonary vascular congestion. There is left lower lobe consolidatio n. No pneumothorax. No large pleural fluid collection. IMPRESSION: 1. PICC line is in the upper aspect of the superior vena cava. No complicating finding. 2. Pulmonary vascular congestion. 3. Left lower lobe consolidation may represent infiltrate and/or atelectasis. Electronically signed by: Veronica Hale DO 05/12/2019 2:44 AM CDT Due to temporary technical issues with the PACS/Fluency reporting system, reports are being signed by the in house radiologist as a courtesy to ensure prompt reporting. The interpreting radiologist is f ully responsible for the content of the report.
[2019-05-12] MEDS: AMIODARONE HCL 450 MG in D5W 241 ML IV SCH (12:11)
--- NOTE | 2019-05-12 12:11 | P.PN ---
Subjective Date of Service: 05/12/19 Chief Complaint: Respiratory failure bilateral pneumonia Subjective: Improving (Patient is clinically improving more alert the left AFib last night) Review of Systems is unable to be obtained Physical Examination - Vital Signs Temperature: 97.5 F Blood Pressure: 156/69 Pulse: 97 Respirations: 22 Pulse Ox (%): 93 - Physical Exam General: Alert, Mild distress Respiratory: Clear to auscultation bilaterally, Diminished Cardiovascular: No edema, Normal S1 S2 Assessment & Plan - Problems (Diagnosis) (1) Respiratory failure Current Visit: Yes Status: Acute Plan: Patient admitted with respiratory failure chest x-rays improving cultures all negative minimal oxygen requirement plan to wean and extubate Qualifiers: Chronicity: acute (2) Atrial fibrillation Current Visit: Yes Status: Acute Plan: Patient developed AFib currently on amiodarone drip was very transient back in normal sinus rhythm patient has normal left ventricular function Qualifiers: Atrial fibrillation type: paroxysmal Qualified Code(s): I48.0 - Paroxysmal atrial fibrillation
--- NOTE | 2019-05-12 14:26 | PN ---
Subjective: The patient is intubated and sedated. She had earlier this morning a 2-hour run of atri al fibrillation. Now, she is in sinus rhythm. Objective: Vital Signs: Blood pressure 133/51, pulse 70, temperature 97.5. Heart: Now is regular rate and rhythm. Chest: Bilateral crackles. Abdomen: Soft, benign. Bowel sounds are active. Extremities: No edema. No cyanosis. Peripheral pulses are felt. Neurological: The patient is sedated, withdraws to pain. Laboratory Data: Hemoglobin is 9, hematocrit 28.2, platelets 357, white cell count at 9.9. BUN 12, creatinine 0.51. Blood sugar fingersticks ranged from 269 to 220. The rest of her chemistry, potass ium was 3.0. Assessment And Plan: 1.Atrial fibrillation. The patient is started on amiodarone, converted now to sinus rhythm. Seen b william Lovett. Likely due to her hypoxia and her general condition. Will follow Cardiology recommen dations. 2.Multifocal pneumonia with acute respiratory failure. We will continue current antibiotics and mec hanical ventilation and at the same time, patient has been started on nasogastric tube feeding. 3.Anemia of chronic illness, stable. 4.Hypokalemia. The patient is on electrolyte panel protocol. 5.Type 2 diabetes. The patient is on regular insulin sliding scale. Her increased blood sugar numbers reflect her nutrition with the nasogastric tube. Look orders for d etails. MFS/MODL Voice ID: [id number] Report ID: [id number]
[2019-05-12] MEDS: IPRATROPIUM BROM 0.5MG/2.5ML NEB SCH ×2 (14:49→20:00)
[2019-05-12] MEDS: ALBUTEROL 2.5 MG/3 ML NEB SOL NEB PRN (14:49)
--- NOTE | 2019-05-12 15:29 | EKG ---
Test Date: 2019-05-12 Test Time: 04:37:16 Motor Runner: RT MEASUREMENT RESULTS: Intervals: Rate: 140 [place]: QRSD: 74 QT: 338 QTc: 516 [place]: P: [place]: QRS: 26 T: 106 INTERPRETIVE STATEMENTS: Atrial fibrillation with rapid ventricular response ST depression, consider subendocardial injury or digitalis effect Nonspecific T wave abnormality, probably digitalis effect Abnormal ECG Compared to ECG 05/10/2019 03:46:52 ST (T wave) deviation now present T-wave abnormality now present Electronically Signed On 05-12-19 15:28:09 CDT by Jose Lovett
--- NOTE | 2019-05-12 15:29 | EKG ---
Test Date: 2019-05-12 Test Time: 06:16:09 Real Estate Account Executive: DARREN MEASUREMENT RESULTS: Intervals: Rate: 88 [place]: 160 QRSD: 76 QT: 416 QTc: 503 [place]: P: 74 [place]: 160 QRS: 42 T: 63 INTERPRETIVE STATEMENTS: Sinus rhythm with premature atrial complexes Prolonged QT Abnormal ECG Compared to ECG 05/12/2019 04:37:16 Atrial premature complex(es) now present Prolonged QT interval now present Atrial fibrillation no longer present ST (T wave) deviation no longer present T-wave abnormality no longer present Electronically Signed On 05-12-19 15:28:05 CDT by Jose Lovett
--- NOTE | 2019-05-12 19:35 | PN ---
Date of Progress Note: 05/12/2019 Ms. Ortega had been followed for intermittent SVT short runs for the last couple days after she had be en admitted for multifocal pneumonia. She remains intubated. She has had her magnesium and potassiu m corrected, however, last night she went into rapid atrial fibrillation that was persistent and was started on IV amiodarone by Dr. Castro. Today, she is in normal sinus rhythm. She did have an ech ocardiogram that was perfectly normal. We will continue her IV amiodarone for now. We will switch h er to p.o. amiodarone after she gets extubated, and we will make further decisions regarding anticoag ulation after she improves from her pneumonia. I will continue to follow her. DANAE/VIJAY Voice ID: [id number] Report ID: [id number]
[2019-05-12] MEDS: MORPHINE 2 MG/ML SYR IV PRN (23:23)
[2019-05-13] MEDS: PIPER/TAZO/NS 3.375gm 3.375 GM/100 ML BAG IVPB SCH ×2 (00:37→08:41)
[2019-05-13] MEDS: INSULIN -REGULAR HUMAN 50 UNIT/0.5 ML ML SQ SCH ×5 (00:37→21:00)
[2019-05-13] MEDS: IPRATROPIUM BROM 0.5MG/2.5ML NEB SCH ×4 (02:00→20:10)
[2019-05-13] MEDS: AMIODARONE HCL 450 MG in D5W 241 ML IV SCH (02:09)
[2019-05-13] MEDS: MORPHINE 2 MG/ML SYR IV PRN ×2 (04:46→08:52)
[2019-05-13 05:12] VITALS: BMI 33.4
[2019-05-13 05:42] LABS: BUN Blood Urea Nitrogen 10 mg/dL (7-18); Bicarbonate 31 mmol/L (21-32); Glucose Level 167 mg/dL (74-106); Magnesium 2.2 mg/dL (1.8-2.4); Potassium 3.4 mmol/L (3.5-5.1); Sodium Level 138 mmol/L (136-145)
[2019-05-13] MEDS ORDERED: POTASSIUM 25 MEQ EFFERV TAB PO ONE (06:30)
[2019-05-13] MEDS ORDERED: KCL 20 MEQ/100 mL IVPB 20 MEQ/100 ML BAG IV SCH (07:00)
[2019-05-13] MEDS: ALBUTEROL 2.5 MG/3 ML NEB SOL NEB PRN ×2 (08:10→13:35)
[2019-05-13] MEDS: VANCOMYCIN 1.25 GM in NA CHLORIDE 0.9% 250 ML IVPB SCH (08:11)
[2019-05-13] MEDS: FAMOTIDINE 20 MG/2 ML VIAL IV SCH (08:11)
[2019-05-13] MEDS: ENOXAPARIN 40 MG/0.4 ML SQ SCH (08:12)
[2019-05-13] MEDS: ACETAMINOPHEN 500 MG TAB PO PRN ×2 (11:36→18:09)
[2019-05-13] MEDS: AMIODARONE HCL 200 MG TAB PO SCH ×2 (11:39→21:37)
--- NOTE | 2019-05-13 12:30 | PN ---
Subjective: Ms. Shahide NB/MODL Voice ID: [id number] Report ID: [id number]
--- NOTE | 2019-05-13 13:07 | P.PN ---
Subjective Date of Service: 05/13/19 Chief Complaint: COPD Subjective: Improving (Patient is doing much better was extubated yesterday stable to be transferred to the floor tolerating diet) Review of Systems General: Weakness Respiratory: Cough, Shortness of Breath Physical Examination - Vital Signs Temperature: 97.4 F Blood Pressure: 146/60 Pulse: 89 Respirations: 18 Pulse Ox (%): 98 - Physical Exam General: Alert, Oriented x3 Respiratory: Clear to auscultation bilaterally, Diminished Cardiovascular: No edema, Normal S1 S2 Assessment & Plan - Problems (Diagnosis) (1) Respiratory failure Current Visit: Yes Status: Resolved Plan: Patient admitted with respiratory failure chest x-rays improving cultures all negative minimal oxygen requirement plan to wean and extubate Qualifiers: Chronicity: acute (2) Atrial fibrillation Current Visit: Yes Status: Acute Plan: Patient change to p.o. amiodarone Qualifiers: Atrial fibrillation type: paroxysmal Qualified Code(s): I48.0 - Paroxysmal atrial fibrillation
--- NOTE | 2019-05-13 13:15 | PN ---
Subjective: Patient is extubated, feeling well, communicating well. Said she has been having pains all over low back and joints. Other than that, no chest pain. No abdominal pain. Objective: Vital Signs: Blood pressure 145/60, pulse 89, temperature 97.4. Heart: Regular rate and rhythm. Patient is in sinus rhythm. Chest: Mild bilateral crackles. Some clear coughing. Abdomen: Soft, benign. Bowel sounds are active. Extremities: No edema. No cyanosis. Peripheral pulses are felt. Neurological: Alert, oriented x4. Grossly intact. Laboratory Data: Patient's potassium 3.4. Blood sugar fingersticks ranged from 269 to 145. Assessment And Plan: 1.Multifocal pneumonia with acute respiratory failure. Patient is extubated, breathing on her own w ell, and her pneumonia is controlled with current IV antibiotics. We will continue. 2.Type 2 diabetes. We will keep the patient on sliding scale. 3.Hypertension. We will go ahead and continue to monitor her blood pressure. We will put her back on her blood pressure medications should that continue to go up, we are going to put her back on her losartan. 4.We will put the patient on also physical therapy to help her ambulate. 5.We will give the patient Lortab for her back pain. Patient continues to do well, will move out of the ICU to a regular bed. Look orders for details. MFS/MODL Voice ID: [id number] Report ID: [id number]
[2019-05-13] MEDS: HYDROCODONE/APAP 7.5/325 MG TAB PO PRN ×2 (13:19→21:38)
[2019-05-13] MEDS: levoFLOXacin 500 MG TAB PO SCH (15:15)
[2019-05-13] MEDS: BENZONATATE 100 MG CAP PO PRN ×2 (15:15→21:38)
[2019-05-13] MEDS: DOXYCYCLINE 100 MG CAP PO SCH (21:37)
[2019-05-14] MEDS: IPRATROPIUM BROM 0.5MG/2.5ML NEB SCH ×4 (01:50→21:30)
[2019-05-14] MEDS: ACETAMINOPHEN 500 MG TAB PO PRN (02:41)
[2019-05-14] MEDS: BENZONATATE 100 MG CAP PO PRN ×2 (04:46→12:39)
[2019-05-14] MEDS: INSULIN -REGULAR HUMAN 50 UNIT/0.5 ML ML SQ SCH ×4 (07:30→21:55)
[2019-05-14] MEDS: DOXYCYCLINE 100 MG CAP PO SCH ×2 (08:43→21:54)
[2019-05-14] MEDS: ENOXAPARIN 40 MG/0.4 ML SQ SCH (08:43)
[2019-05-14] MEDS: LOSARTAN POTASSIUM 50 MG TABLET PO SCH (08:43)
[2019-05-14] MEDS: levoFLOXacin 500 MG TAB PO SCH (08:43)
[2019-05-14] MEDS: AMIODARONE HCL 200 MG TAB PO SCH (08:46)
[2019-05-14] MEDS ORDERED: HOME MED 1 EA UNK (Losartan Potassium [Losartan Potassium] 100 MG) PO SCH (09:00)
[2019-05-14] MEDS ORDERED: ONDANSETRON 4 MG (ODT) TAB PO PRN (10:40)
--- NOTE | 2019-05-14 11:38 | P.PN ---
Subjective Date of Service: 05/14/19 Chief Complaint: COPD Subjective: Improving (Patient is doing much better feeling a little weak) Review of Systems General: Weakness Respiratory: Shortness of Breath Physical Examination - Vital Signs Temperature: 98 F Blood Pressure: 149/66 Pulse: 72 Respirations: 16 Pulse Ox (%): 94 - Physical Exam General: Alert, Oriented x3 Respiratory: Clear to auscultation bilaterally, Diminished Cardiovascular: No edema, Regular rate/rhythm - Studies Microbiology Data (last 24 hrs): 05/08/19 15:15 Blood - Blood Aerobic Blood Culture - Final No growth in 5 days. 05/08/19 15:15 Blood - Blood Anaerobic Blood Culture - Final No growth in 5 days. 05/08/19 15:15 Blood - Blood Aerobic Blood Culture - Final No growth in 5 days. 05/08/19 15:15 Blood - Blood Anaerobic Blood Culture - Final Assessment & Plan - Problems (Diagnosis) (1) Atrial fibrillation Current Visit: Yes Status: Acute Plan: Patient is a normal sinus rhythm will discuss with cardiology regarding continue with amiodarone patients rate could probably be controlled with some beta- blockers if needed she has not had any recurrent episodes of AFib normal left ventricular function patient's vital signs are stable physical therapy ambulate cultures all negative is not interaction of levofloxacin with amiodarone Qualifiers: Atrial fibrillation type: paroxysmal Qualified Code(s): I48.0 - Paroxysmal atrial fibrillation (2) COPD (chronic obstructive pulmonary disease) Current Visit: Yes Status: Acute Plan: Condition stable no evidence of sepsis patient has home O2 bronchodilators Dc levofloxacin continue with doxy possible discharge
--- NOTE | 2019-05-14 14:08 | PN ---
Subjective: The patient has a complaint that this morning she cannot raise her right arm. It feels heavy since early this morning. Other than that as far as her breathing, she is not short of breath. She is feeling well from that standpoint. Objective: General: The patient's blood pressure 164/60, pulse 73, temperature 97.9. Heart: Regular rate and rhythm. Chest: Mild end-expiratory crackles, clear with coughing. Abdomen: Soft, benign. Bowel sounds are active. Extremities: No edema. No signs of peripheral pulses are felt. Neurological: The patient is alert and oriented x4. Sensory intact. Motor: Right upper extremity motor power is 2/5. The rest of her extremities motor power is 5/5. The patient's cranial nerves 2 through 12 intact. She had negative Babinski. Laboratory Data: blood sugar fingersticks from 145 to 269. Assessment And Plan: 1.Right upper extremity significant weakness, suspect stroke. We are going to go ahead and check fi rst the head CT and then we will do MRI of the head and neck per protocol and carotid ultrasound. We will act accordingly. 2.Pneumonia and acute respiratory failure. The patient is recovering very well from this. 3.Type 2 diabetes. We will continue the patient on the sliding scale of regular insulin. 4.Hypertension. We are going to gradually starting putting the patient back on her blood pressure m edicines. 5.Atrial fibrillation. The patient is in sinus rhythm and as per Cardiology, the patient's atrial f ibrillation was of action to her hypoxemia and no need to put her on antiarrhythmic at this point. Look orders for details. MFS/MODL Voice ID: [id number] Report ID: [id number]
[2019-05-14] MEDS ORDERED: ENSURE HIGH PROTEIN 237 ML CAN PO PRN (15:18)
--- NOTE | 2019-05-14 15:49 | RAD REPORT ---
EXAM DESCRIPTION: CT - Head Brain Wo Cont - 05/14/2019 3:38 pm CLINICAL HISTORY: Stroke protocolweakness COMPARISON: Ct Stroke Brain Wo Cont dated 04/29/2017 TECHNIQUE: Axial 5 mm thick images of the head were obtained without IV contrast. All CT scans are performed using dose optimization technique as appropriate and may include automated exposure control or mA/KV adjustment according to patient size. FINDINGS: No intracranial hemorrhage, mass, edema or shift of mid-line structures. No acute cortical based infarction. No cortical edema or sulcal effacement. Atrophy changes match the 2018 study. Vent ricles are in proportion to the volume loss. Chronic ischemic changes are seen in the cerebral white matter in these changes could potentially mask nonhemorrhagic CVA. Slight decrease in white matter at tenuation in the medial left frontal lobe near the lateral ventricle is potentially an area of ischem ic change. There is slightly greater diminishment in attenuation in the genu internal capsule and ant erior thalamus on the left. This would also be a possible site of nonhemorrhagic CVA if the patient h as localizing symptoms. Mastoid air cells and visualized portions of the paranasal sinuses are clear. No acute bony findings. IMPRESSION: No hemorrhage present. No mass effect, edema or shift of midline structures. No acute cortical infarction identified. Thalamus, basal ganglia and deep periventricular white matter changes on the left are slightly more p ronounced than 2018 and would be potential sites for nonhemorrhagic CVA. If the patient can undergo the examination, MRI imaging could be performed to more sensitively assess the brain parenchyma.
--- NOTE | 2019-05-14 16:05 | PN ---
Date of Progress Note: 05/14/2019 Ms. Ortega had been admitted with multifocal pneumonia, occasional SVT, eventually went into atrial fi brillation, was placed on IV amiodarone, and rather converted quickly to sinus rhythm. She did recei ve some p.o. amiodarone as well and her IV amiodarone was discontinued. She has not had any further arrhythmia. She was doing much better from a pneumonia standpoint. The case was discussed with Dr. Castro in regard to the amiodarone and I believe considering her recent pneumonia and amiodarone pu lmonary toxicity as a possible side effect, I would prefer that Ms. Ortega goes home on her home medic ation, beta-blockers, and aspirin. No amiodarone. No anticoagulation. I will set up an event monit or stress test sometime in the next 2 to 4 weeks and decide on further therapy if her atrial fibrilla tion recurs. She can go home today. DANAE/VIJAY Voice ID: [id number] Report ID: [id number]
[2019-05-14] MEDS: HYDROCODONE/APAP 7.5/325 MG TAB PO PRN (18:11)
--- NOTE | 2019-05-14 18:15 | RAD REPORT ---
EXAM DESCRIPTION: MRI - Brain W/Wo Cont - 05/14/2019 5:47 pm CLINICAL HISTORY: cva COMPARISON: MRA Head Wo Cont dated 05/14/2019; MRA Neck W/Wo Cont dated 05/14/2019 TECHNIQUE: Sagittal and axial T1-weighted images were obtained. Axial PD/heavily T2-weighted and T2- FLAIR images were obtained along with axial DWI/ADC mapping sequences. Coronal heavily T2 weighted s equence obtained. Axial and coronal post-contrast T1-weighted images were also obtained. A 19 ml Mul tihance contrast following utilized. FINDINGS: No acute or subacute infarction changes present. No hemorrhage or mass effect. There is no edema or shift of midline structures. No extra-axial fluid collections. Rogers-matter/white matter ramiro ction is preserved. Signal voids are seen as a normal finding in the major intracranial vessels. Atr ophy changes are mild to moderate for age. Ventricles are in proportion. Mild chronic ischemic change in the cerebral white matter. Focal hypointense T1 and hyperintense T2 signal is present in the left posterior limb internal capsule. This is probably an old ischemic insult. No active process at this site. No enhancement seen. Elsewhere there is no abnormal enhancement of the dura or brain parenchyma . No globe or orbital content abnormality. Mastoid air cells and paranasal sinuses are clear. IMPRESSION: No acute infarction changes are present. No hemorrhage, mass or acute intracranial findi ng seen.
--- NOTE | 2019-05-14 18:17 | RAD REPORT ---
EXAM DESCRIPTION: MRI - MRA Head Wo Cont - 05/14/2019 5:46 pm CLINICAL HISTORY: CVA, weakness, stroke-like symptoms COMPARISON: MRI brain same date, CT head same date TECHNIQUE: Axial and coronal 3D bdry-[id number] image acquisition was performed. 3D rotational images were generated with source and reconstruction images reviewed. Horizontal and vertical axis rotation al views generated using MIP protocol. FINDINGS: No aneurysm or vascular malformation identifiable. Basilar artery and distal vertebral arteries show no significant finding. Bilateral posterior cerebra l arteries also unremarkable. Distal internal carotid arteries show no significant atherosclerotic ch octaviano. The anterior and middle cerebral artery distributions are also without significant atherosclero tic change. No named branch occlusion. No vasculitis or other significant vascular finding identifiab le. IMPRESSION: MRA head examination shows no significant or suspicious finding.
--- NOTE | 2019-05-14 18:18 | RAD REPORT ---
EXAM DESCRIPTION: MRI - MRA Neck W/Wo Cont - 05/14/2019 5:46 pm CLINICAL HISTORY: CVA, stroke-like symptoms, weakness COMPARISON: MRA head same date, MRI brain same date TECHNIQUE: MR angiography of the cervical vasculature performed. Coronal imaging plane acquisition u tilized. A 19 MultiHance contrast volume was utilized. Coronal reformatted images were generated and reviewed. Vertical axis 3D rotational projections obtained using maximum intensity projection protoco l. FINDINGS: Aortic arch is 3 vessel configuration. No origins stenosis identifiable. Origins of each v ertebral artery are not optimally visualized. Significant disease is not suspected. The vertebral art eries are codominant. No stenosis. The bilateral common carotid and internal carotid arteries show no significant disease. No dissection of any vessel identifiable. Subclavian arteries are unremarkable. IMPRESSION: MRA neck examination shows no significant or suspicious finding.
--- NOTE | 2019-05-14 19:50 | RAD REPORT ---
EXAM DESCRIPTION: US - CP - 05/14/2019 7:08 pm CLINICAL HISTORY: possible stroke, stroke-like symptoms, weakness COMPARISON: MRA Neck W/Wo Cont dated 05/14/2019 TECHNIQUE: Real-time sonographic evaluation of bilateral carotid and vertebral systems was performed . Rogers scale and Doppler interrogation were performed with waveform tracing bilaterally. FINDINGS: Normal high resistance waveforms are noted in both external carotid arteries. The common c arotid arteries and internal carotid arteries show normal low resistance waveforms. Calcified plaquing changes are present in each carotid bulb, left greater than right. On visual inspe ction no significant degree of luminal narrowing seen. Peak systolic and end diastolic velocity value s and the ICA/CCA ratios are in the non-hemodynamically significant range. Antegrade flow seen in both vertebral arteries. Velocity values and ratios were recorded and are retained in the patient's imaging records. IMPRESSION: Calcified plaquing changes are present in each carotid bulb, left greater than right. Currently findings do not result in a hemodynamically significant degree of stenosis.
--- NOTE | 2019-05-14 21:35 | CON ---
Date of Consultation: 05/14/2019 Reason: Possible stroke. History: This is a 73-year-old lady who came into the hospital on the with a fever of 102. She was found to have multifocal pneumonia on chest x-ray, went into respiratory failure. COVID was neg ative. She is up, getting intubated. She actually has been extubated. She is off the vent. She is on a floor bed now, but for the last day and a half, she has had right upper extremity weakness. Th ere is no dysarthria. There are no cranial nerve symptoms. There are no lower extremity symptoms. There is no dysphagia. It is not particularly painful, i.e., the arm is not painful. She had atrial fibrillation, SVT, and stroke was quite reasonably suspected, but brain MRI demonstrates only a prio r lacune in the left capsule, diffusion images are negative. MRA cervical vessels, negative. MRA br ain, negative. She does admit to some neck pain. She does have diabetes. Consultation was sue merritt. Past Medical History: Prior stroke, hypertension, diabetes, COPD, anemia. Past Surgical History: Recent cholecystectomy. Current Medications: Albuterol, amlodipine, Lipitor, doxycycline, Lovenox, fentanyl, glucagon p.r.n. , insulin, ipratropium, losartan, metoprolol, sodium chloride. Allergies: IODINE AND TEGRETOL. Social History: Never smoked. Normally independent basic activities of daily living. Family History: Noncontributory. Review of Systems: General: She is ill now. Eyes: No vision loss. Ears, Nose, Throat: No aphasia. No dysarthria. Cardiovascular: Runs of atrial fibrillation and SVT as alluded to, but in a sinus rhythm presently. Pulmonary: Recent respiratory failure. GI: Negative. : Negative Musculoskeletal: Arm weakness. Neurologic: As noted. Psychiatric: Negative. Endocrine: Diabetes. Hematologic: Negative. Physical Examination: Vital Signs: 97.9, 73, 18, 148/77. General: Pleasant lady who appears slightly dyspneic, lying in bed, in no distress. Heart: Sinus rhythm. Neck: No carotid bruits. Neurologic: She is awake, alert, oriented to time, person, place, and situation. Pupils reactive. Ocular motion full without nystagmus. Visual field s full to confrontation bilaterally. Facial strength and sensation are normal. Tongue protrudes bull nly. Soft palate elevates symmetrically bilaterally. Examination of her extremities reveals proxima l right upper extremity weakness with scapular winging, which is mild. She has weakness to the supra spinatus, infraspinatus, deltoid, as well as the triceps, but she has actually full strength distally . Sensation is intact. Reflexes are actually quite well preserved given her history of diabetes wit h a neutral to upgoing toe on the right that may be from the prior infarct and a downgoing toe on the left. Cerebellar exam demonstrates no ataxia given the degree of weakness. Impression: There is no real imaging evidence for a stroke; although, she does have multiple risk fa ctors for such. It is not the general painful diabetic plexopathy that one more commonly encounters and likewise reflexes are well preserved for that diagnosis, but that is a distinct possibility given her recent sepsis and slight associated neck pain on palpation on physical exam, need to consider mo re central spinal cord lesion. Plan: We will check a sedimentation rate and repeat a chest x-ray and get an MRI of cervical spine. When that is available, which will probably be Friday, we will additionally check a B12 level, TSH, and CPK as well as an acetylcholine receptor antibody. Thank you for the consult. We will continue to follow with you. KIMMIE Voice ID: [id number] Report ID: [id number]
[2019-05-14] MEDS: ATORVASTATIN 20 MG TAB PO SCH (21:54)
--- NOTE | 2019-05-14 22:38 | RAD REPORT ---
EXAM DESCRIPTION: MRI - C Spine Wo Cont - 05/14/2019 9:12 pm CLINICAL HISTORY: ? myelopathy, weakness COMPARISON: C Spine Wo Cont dated 03/18/2017 TECHNIQUE: Sagittal T1-weighted, T2-weighted and T2-STIR sequences were obtained as well as T2 medic sequence. FINDINGS: Cervical vertebral bodies are normal in height and alignment. No suspicious marrow edema o r marrow replacing process. No paraspinal mass. Scattered fatty marrow degenerative changes are pres ent similar to the comparison study. Cerebellar tonsils and mid-line skull base show no suspicious finding. No significant finding at the C1 and C2 levels. C2-3 level: Midline disc bulge and posterior longitudinal ligament thickening are present. This atten uates the anterior subarachnoid space. No flattening of the cord. Canal is borderline stenotic at 9-1 0 mm. No significant foraminal encroachment. C3-4 level: Disc bulge and endplate spurring changes partially attenuate the anterior subarachnoid sp micheline. Posterior ligamentous thickening present. Canal is mildly stenotic at 9 mm. No significant yumiko inal encroachment identified. Motion degradation some what is limits foramen assessment. C4-5 level: Disc bulge and endplate spurring changes partially attenuating the anterior subarachnoid space. Midline canal is 10 mm. Left bony foraminal encroachment seen primarily from left facet hypert rophy. C5-6 level: Disc bulge and endplate spurring changes are present. Central spinal stenosis. Bilateral bony foraminal encroachment seen from bilateral uncovertebral joint hypertrophy. Findings are worse o n the left. C6-7 level: Disc is thinned. Prominent disc bulge and endplate spurring changes are present. Canal is 10 mm. Bilateral bony foraminal encroachment from uncovertebral joint hypertrophy. C7-T1 level: Disc bulge and endplate spurring changes are present. Midline canal is 11 mm. Posterior ligamentous thickening present. Exit foramina assessment is limited due to motion. Cervical cord shows no focal expansile change. No signal abnormality or focal narrowing. IMPRESSION: Multilevel cervical spondylosis changes are present. Borderline or mild canal stenosis c hanges are present as detailed. Foraminal stenosis changes present as detailed. No acute cervical cord finding. Exam findings are not substantially different from June 2017 comparison.
[2019-05-15] MEDS: IPRATROPIUM BROM 0.5MG/2.5ML NEB SCH ×4 (01:30→20:10)
[2019-05-15] MEDS: PANTOPRAZOLE 40MG TABLET PO SCH (05:23)
[2019-05-15] MEDS: BENZONATATE 100 MG CAP PO PRN (05:23)
[2019-05-15 05:49] LABS: Absolute Lymphocytes (CBC) 2.1 K/uL (0.7-4.9); Basophils % 1.3 % (0-1.3); Hematocrit 30.6 % (36.0-45.0); Lymphocytes % 22.7 % (15.3-44.8); MPV 7.8 fL (7.6-11.3); RBC Red Blood Cell Count 3.84 M/uL (3.86-4.86)
[2019-05-15] MEDS ORDERED: HOME MED 1 EA UNK (Omeprazole [Prilosec] 20 MG) PO SCH (06:30)
[2019-05-15 06:46] LABS: BUN Blood Urea Nitrogen 14 mg/dL (7-18); Bicarbonate 31 mmol/L (21-32); Creatine Phosphokinase 41 U/L (26-192); Glucose Level 203 mg/dL (74-106); Potassium 3.7 mmol/L (3.5-5.1); Sodium Level 137 mmol/L (136-145)
[2019-05-15] MEDS ORDERED: POTASSIUM CL SA 10 MEQ TAB PO ONE (07:52)
--- NOTE | 2019-05-15 07:53 | RAD REPORT ---
EXAM DESCRIPTION: Bhavik Single View05/15/2019 6:38 am CLINICAL HISTORY: Chest pain COMPARISON: May 11 FINDINGS: Left base is hazy. The additional bilateral pulmonary opacities have mostly resolved Heart is normal size. PICC line with its tip in the proximal superior vena cava IMPRESSION: Left lower lobe pneumonia
[2019-05-15] MEDS: LOSARTAN POTASSIUM 50 MG TABLET PO SCH (08:24)
[2019-05-15] MEDS: INSULIN -REGULAR HUMAN 50 UNIT/0.5 ML ML SQ SCH ×4 (08:24→21:32)
[2019-05-15] MEDS: DOXYCYCLINE 100 MG CAP PO SCH (08:25)
[2019-05-15] MEDS: AMLODIPINE 5 MG TAB PO SCH (08:25)
[2019-05-15] MEDS: ENOXAPARIN 40 MG/0.4 ML SQ SCH (08:26)
--- NOTE | 2019-05-15 11:00 | PN ---
Date of Progress Note: 05/15/2019 Ms. Ortega had came in with multifocal pneumonia, atrial fibrillation, sepsis. She has a history of d iabetes, hypertension, and COPD. We had initially placed her on IV amiodarone because of atrial fibr illation, which is resolved. We did give her 1 dose of p.o. amiodarone. The case was discussed with Dr. Castro. Considering the atrial fibrillation was in the setting of pneumonia and sepsis, we de cided to hold her amiodarone for now. She remains on Lovenox. She remains in sinus rhythm. She is getting beta blockers as needed. She had been having some neck pain. Dr. Lozano saw her and ordered a chest x-ray and C-spine, MRI for possible plexopathy. I will be available for questions if the nee d arises, but as long as she is in sinus rhythm, we will just sit tight. I will sign off her case fo r now. DANAE/VIJAY Voice ID: [id number] Report ID: [id number]
--- NOTE | 2019-05-15 12:06 | P.PN ---
Subjective Date of Service: 05/15/19 Chief Complaint: COPD Subjective: Improving (Patient is improving although she has been complaining of some weakness of the right arm occur during this admission with slight expressive dysplasia history of TIA) Review of Systems General: Weakness Respiratory: Shortness of Breath Physical Examination - Vital Signs Temperature: 97.8 F Blood Pressure: 164/58 Pulse: 70 Respirations: 18 Pulse Ox (%): 97 - Physical Exam General: Alert, Oriented x3 Respiratory: Clear to auscultation bilaterally Cardiovascular: No edema, Regular rate/rhythm Gastrointestinal: Normal bowel sounds, Soft and benign Musculoskeletal: No clubbing Integumentary: No rashes Neurological: Other (Patient is alert oriented x3 years weakness of her right arm more than her legs) Assessment & Plan - Problems (Diagnosis) (1) Atrial fibrillation Current Visit: Yes Status: Acute Plan: Patient has been in sinus rhythm will Dc amiodarone as per Cardiology Qualifiers: Atrial fibrillation type: paroxysmal Qualified Code(s): I48.0 - Paroxysmal atrial fibrillation (2) COPD (chronic obstructive pulmonary disease) Current Visit: Yes Status: Acute Plan: C continue with bronchodilators no clinical evidence of sepsis
[2019-05-15] MEDS: ARFORMOTEROL TARTRATE 15 MCG/2 ML VIAL.NEB NEB SCH (20:10)
[2019-05-15] MEDS: ATORVASTATIN 20 MG TAB PO SCH (21:32)
[2019-05-16] MEDS: IPRATROPIUM BROM 0.5MG/2.5ML NEB SCH ×4 (01:40→19:30)
[2019-05-16] MEDS: PANTOPRAZOLE 40MG TABLET PO SCH (05:51)
[2019-05-16 06:32] LABS: BUN Blood Urea Nitrogen 14 mg/dL (7-18); Bicarbonate 31 mmol/L (21-32); Glucose Level 226 mg/dL (74-106); Potassium 3.7 mmol/L (3.5-5.1); Sodium Level 137 mmol/L (136-145)
[2019-05-16] MEDS: ARFORMOTEROL TARTRATE 15 MCG/2 ML VIAL.NEB NEB SCH ×2 (07:25→19:30)
[2019-05-16] MEDS ORDERED: POTASSIUM 25 MEQ EFFERV TAB PO ONE (09:00)
[2019-05-16] MEDS: AMLODIPINE 5 MG TAB PO SCH (09:20)
[2019-05-16] MEDS: LOSARTAN POTASSIUM 50 MG TABLET PO SCH (09:20)
[2019-05-16] MEDS: ENOXAPARIN 40 MG/0.4 ML SQ SCH (09:21)
[2019-05-16] MEDS: INSULIN -REGULAR HUMAN 50 UNIT/0.5 ML ML SQ SCH ×4 (09:21→21:56)
--- NOTE | 2019-05-16 12:58 | PN ---
Subjective: The patient is feeling much better today. She also reports that her right upper extremi ty does not feel as heavy anymore and she could move it and raise it better than yesterday. No short ness of breath. No chest pain. No other complaints. Objective: Vital Signs: Blood pressure 130/63, pulse 74, temperature 98.1. Heart: Regular rate and rhythm. Chest: Clear to auscultation. Abdomen: Soft. Benign. Neurologic: Alert, oriented, nonfocal. Grossly intact. Extremities: Right shoulder, right upper extremity showed decreased range of movement and abduction up to 60 degrees with no pain. Assessment And Plan: 1.Multifocal pneumonia and acute respiratory failure, resolving. 2.Type 2 diabetes. Blood sugar fingersticks noted. Continue the patient on the sliding scale. 3.The workup for right upper extremity weakness that included carotid ultrasound and head and neck M RI, and head CT was nonrevealing for a stroke. I think may be mononeuropathy as mentioned by Neurolo gy could be from manipulating the neck during intubation and it is resolving; however, we will keep o bserving that for the patient. She is generally weak after all the sickness. We will ambulate her a nd gradually improve her ambulation strength. Expect to discharge the patient tomorrow if she keeps doing well. Look orders for details. MFS/MODL Voice ID: [id number] Report ID: [id number]
[2019-05-16] MEDS: ATORVASTATIN 20 MG TAB PO SCH (20:23)
[2019-05-17] MEDS: IPRATROPIUM BROM 0.5MG/2.5ML NEB SCH ×2 (02:10→08:40)
[2019-05-17] MEDS: PANTOPRAZOLE 40MG TABLET PO SCH (05:38)
[2019-05-17 05:41] LABS: Absolute Lymphocytes (CBC) 2.2 K/uL (0.7-4.9); Basophils % 1.2 % (0-1.3); Hematocrit 31.1 % (36.0-45.0); Lymphocytes % 27.9 % (15.3-44.8); MPV 7.6 fL (7.6-11.3); RBC Red Blood Cell Count 3.86 M/uL (3.86-4.86)
[2019-05-17 06:39] LABS: BUN Blood Urea Nitrogen 12 mg/dL (7-18); Bicarbonate 32 mmol/L (21-32); Glucose Level 186 mg/dL (74-106); Potassium 3.9 mmol/L (3.5-5.1); Sodium Level 138 mmol/L (136-145)
[2019-05-17] MEDS ORDERED: POTASSIUM CL SA 10 MEQ TAB PO ONE (07:45)
[2019-05-17] MEDS: AMLODIPINE 5 MG TAB PO SCH (08:33)
[2019-05-17] MEDS: INSULIN -REGULAR HUMAN 50 UNIT/0.5 ML ML SQ SCH ×2 (08:34→12:14)
[2019-05-17] MEDS: LOSARTAN POTASSIUM 50 MG TABLET PO SCH (08:34)
[2019-05-17] MEDS: ENOXAPARIN 40 MG/0.4 ML SQ SCH (08:34)
[2019-05-17] MEDS: ARFORMOTEROL TARTRATE 15 MCG/2 ML VIAL.NEB NEB SCH (08:40)
[2019-05-17] MEDS ORDERED: POTASSIUM 25 MEQ EFFERV TAB PO ONE (09:00)
[2019-05-17 10:54] VITALS: O2SAT 98
[2019-05-17 14:32] VITALS: BP 138/63; TEMP 98.7
== END 2019-05-17 13:02 | DRG 208 ==
LOC: ER 14:58 → ERHOLD 21:35 → 3RD-ICU 05-09 16:18 → 2ND 05-13 15:30
PROVIDERS: ADMIT Internal Medicine; ATTEND Internal Medicine
PROC: 8E0ZXY6 Isolation (ICD-10-PCS; principal; 2019-05-08)
PROC: 5A1945Z Respiratory Ventilation, 24-96 Consecutive Hours (ICD-10-PCS; 2019-05-08)
PROC: 0BH17EZ Insertion of Endotracheal Airway into Trachea, Via Natural or Artificial Opening (ICD-10-PCS; 2019-05-08)
PROC: 02HV33Z Insertion of Infusion Device into Superior Vena Cava, Percutaneous Approach (ICD-10-PCS; 2019-05-12)
DX: J18.9 Pneumonia, unspecified organism (principal); J96.01 Acute respiratory failure with hypoxia; J44.0 Chronic obstructive pulmonary disease with (acute) lower respiratory infection; I47.1 Supraventricular tachycardia; Z90.49 Acquired absence of other specified parts of digestive tract; Z20.828 Contact with and (suspected) exposure to other viral communicable diseases; Z88.8 Allergy status to other drugs, medicaments and biological substances; Z91.041 Radiographic dye allergy status; Z79.82 Long term (current) use of aspirin; Z79.4 Long term (current) use of insulin; Z79.899 Other long term (current) drug therapy; E11.42 Type 2 diabetes mellitus with diabetic polyneuropathy; I10 Essential (primary) hypertension; Z85.41 Personal history of malignant neoplasm of cervix uteri; Z85.3 Personal history of malignant neoplasm of breast; Z86.73 Personal history of transient ischemic attack (TIA), and cerebral infarction without residual deficits; Z90.710 Acquired absence of both cervix and uterus; E87.8 Other disorders of electrolyte and fluid balance, not elsewhere classified; D63.8 Anemia in other chronic diseases classified elsewhere; Z79.891 Long term (current) use of opiate analgesic; E87.6 Hypokalemia; I48.0 Paroxysmal atrial fibrillation
CPT/HCPCS: 31500; 36415; 51702; 70450; 70544; 70549; 70553; 71045; 71250; 72141; 74176; 80048; 80076; 80202; 81001; 82150; 82550; 82553; 82607; 82728; 82805; 82947; 83605; 83615; 83690; 83735; 84100; 84132; 84145; 84238; 84443; 84484; 85025; 85379; 85610; 85652; 85730; 87040; 87070; 87205; 87804; 93005; 93306; 93880; 93970; 94002; 94003; 94640; 96361; 96365; 96367; 96372; 96375; 97110; 97116; 97161; 97530; 99285; A9577; J0282; J0330; J1650; J2250; J2270; J2405; J2543; J2704; J3010; J3370; J7030; J7040; J7060; J7605; U0001

== ENCOUNTER 2019-05-17 13:26 | Inpatient (IN) | payer OTHER ==
--- NOTE | 2019-05-17 11:04 | R.PREADM ---
SCREENING DATE AND TIME 05/17/2019 09:55 (CDT) ANTICIPATED REHAB ADMISSION DATE 05/19/[address] [facility] REFERRAL DATE AND TIME 05/17/2019 09:55 (CDT) REFERRAL ROOM# 229 ACUTE ADMIT DATE 05/08/2019 Previous Rehabilitation(s): No. ACUTE SYSTEMS ENG/DC RUNWAY MODEL Doreen REFERRING PHYSICIAN Dr Martínez REHAB FACILITY [facility] CLINICAL LIAISON Vickie Marcum PHYSICIAN REVIEWER Dr. Jimenez Agrawal M.D. MR# [id number] NAME [address]INA [address] AD[address]ESS [address] [place]IP [address] DATE OF 1945 AGE 73 SSN# [id number] GENDER female MARITAL STATUS RACE white PREF. LANGUAGE (IF NON-NIUEAN) Khmer ADMIT FROM 02 - [facility] PRE-HOSPITAL LIVING SETTING 01 - Home (private home/apt. board/care, assisted living, jail, transitional living) HOME TYPE AND DETAILS Type of home: 2 story Home # of steps to enter the residence: 1 # of levels in the residence: 2 Prior to recent hospitalization, pt was living in a multistory home with her son. pt does not requir e access to the 2nd floor. There is 1 step to enter the home. pt reports that she was ambulatory wi thout the use of an AD. pt states that she does own a RW. pt has a tub shower. pt reports normally being independent with ADLs and self cares. PRE-HOSPITAL LIVING WITH Family/Relatives [employer]ILY [employer] PRIMARY FAMILY CONTACT NAME Zackary Pugh PRIMARY FAMILY CONTACT PHONE PRIMARY FAMILY CONTACT RELATIONSHIP son IS PRIMARY FAMILY CONTACT AUTH. REP.? no 1ST EMERGENCY CONTACT Zackary Pugh 1ST CONTACT PHONE 1ST CONTACT RELATIONSHIP son IS 1ST CONTACT AUTH. REP.? no PHONE 2ND CONTACT ON ADM.? no PATIENT EMPLOYMENT STATUS Retired (for age) PATIENT EMPLOYER No Employer PAYOR INFORMATION: 1ST PAYOR NAME [employer] 1ST PAYOR PHONE 1ST PAYOR AUTHORIZATION# [id number] 1ST PAYOR INJURY/ILLNESS DUE TO ACCIDENT? No ANOTHER REPUBLICAN RESPONSIBLE? No PRIMARY REHAB/ACUTE DIAGNOSIS: Pneumonia ONSET DATE 05/08/2019 REHAB IMPAIRMENT CATEGORY (JEANNETTE): 20 Miscellaneous (Misc) does NOT meet 60% rule PRIMARY DIAGNOSIS-RELATED SURGERIES: No surgeries related to the primary diagnosis were performed. SUMMARY OF ACUTE HOSPITALIZATION: Pt. is a 73 yo Right-handed white female. On 05/08/2019 she was admitted to [facility] with diagnosis Pneumonia . Her impairment category is Medically Complex Conditions 17 - Respiratory Disorders - Non-ventilator Dependent (17.52). Pre-morbidly, Pt. was independent/mod-I in Transfers Control, Locomotion, and Self-Care; and she had good Balance, Safety Awareness, Sphincter Control, and Communication. Currently, she has deficits of Transfers Control, Locomotion, Safety Awareness, and Self-Care. Pt. is now referred to [facility] for acute in-patient rehabilitation in order to maximize patient's functional independence in activities of daily living, strength, ROM, and mobi lity. Patient has realistic goal of being discharged at assistance level 6-Larisa to reside at Home with Fam vidhi/Relatives. PAST MEDICAL HISTORY AFIB COPD Abscess of lung with pneumonia (J85.1) HYPOXEMIA Diabetes HTN Dehydration PAST SURGICAL HISTORY: BLADDER SUSPENSION R ankle sx Stomach SX Breast Biopsy APPENDECTOMY HYSTERECTOMY MEDICATION ALLERGIES: Carbamazapine Iodine ENVIRONMENTAL ALLERGIES: None Known - Substance Allergies None Known - Other Allergies None Known CODE STATUS: Full code WEIGHT/HEIGHT/BMI: WEIGHT 182 lbs HEIGHT 5' 2" BMI 33.3 DIET: - Diet Type Regular - Diet - Solid Texture Regular - Diet - Liquid Texture Regular - Tube Feed N/A REVIEW OF SYSTEMS: - Gen Alert and awake Lying in bed No apparent distress Oriented to: person, time, and place - CVS RRR VITAL SIGNS Temperature: 98.6 F SBP/DBP: 137/62 Pulse: 77 Resp: 18 Vital signs stable, afebrile MEDICATIONS/TREATMENT: Other- See attached MAR (Medication Administration Record). CURRENT SPHINCTER CONTROL: Pre-hospital bladder status: continent Pre-hospital bowel status: continent Last Bowel Movement Date: 05/15/2019 CURRENT LOCOMOTION STATUS: distance walked 30 feet DETAILED CURRENT FUNCTIONAL STATUS: - Walking score based on distance walked: 1(<=50ft) QI SCORES: - Self-Care A. Eating 05-Setup or clean-up assistance B. Oral hygiene 05-Setup or clean-up assistance C. Toileting hygiene 04-Supervision or touching assistance E. Shower/bathe self 10-Not attempted due to environmental limitations F. Upper body dressing 04-Supervision or touching assistance G. Lower body dressing 88-Not attempted due to medical condition or safety concerns H. Putting on/taking off footwear 88-Not attempted due to medical condition or safety concerns - Mobility A. Roll left and right 04-Supervision or touching assistance B. Sit to lying 04-Supervision or touching assistance C. Lying to sitting on side of bed 04-Supervision or touching assistance D. Sit to stand 04-Supervision or touching assistance E. Chair/dux-sx-zckfq transfer 04-Supervision or touching assistance F. Toilet transfer 04-Supervision or touching assistance G. Car transfer 10-Not attempted due to environmental limitations I. Walk 10 feet 04-Supervision or touching assistance J. Walk 50 feet with two turns 88-Not attempted due to medical condition or safety concerns K. Walk 150 feet 88-Not attempted due to medical condition or safety concerns L. Walking 10 feet on uneven surfaces 88-Not attempted due to medical condition or safety concerns M. 1 step (curb) 88-Not attempted due to medical condition or safety concerns N. 4 steps 88-Not attempted due to medical condition or safety concerns O. 12 steps 88-Not attempted due to medical condition or safety concerns P. Picking up object 88-Not attempted due to medical condition or safety concerns - Bladder and Bowel Bladder continence 0-Always continent Bowel continence 0-Always continent - Endurance Poor - Balance Poor - Safety Awareness Poor CURRENT FUNC. DEFICITS: Self-Care, Mobility, Endurance, Balance, and Safety Awareness CURRENT / PREVIOUS ASSISTIVE DEVICES: Rolling Walker Tub Bench HISTORY OF FALLS. HAS THE PATIENT HAD TWO OR MORE FALLS IN THE PAST YEAR OR ANY FALL WITH INJURY IN T HE PAST YEAR?: No PRIOR SURGERY. DID THE PATIENT HAVE MAJOR SURGERY DURING THE 100 DAYS PRIOR TO ADMISSION?: No THERAPY NOTES FROM ACUTE CARE: Attached. SPECIAL NEEDS: - Safety Concerns Skin breakdown precautions needed due to skin breakdown risk PATIENT NEEDS ACTIVE AND ONGOING THERAPEUTIC INTERVENTION OF MULTIPLE THERAPY DISCIPLINES, INCLUDING: - Dietary and Nutrition Adequate Nutrition. Nutritional Education. Nutritional Supplements. PATIENT NEEDS CLOSE MEDICAL SUPERVISION BY A REHABILITATION PHYSICIAN FOR: Coordination of Treatment Team PATIENT REQUIRES 24X7 REHAB NURSING FOR MEDICAL AND FUNCTIONAL MGT. OF THE FOLLOWING DEFICITS: Disease Management Medication Management Patient/Family Education Providing Safe Environment PATIENT REQUIRES INTENSIVE, COORDINATED INTERDISCIPLINARY APPROACH TO REHAB: Arranging Home Equipment/Services Discharge Planning Family Intervention/Training Academy Director/Case Management PATIENT REHAB POTENTIAL: Madhu COOPER is able and expected to receive 3 hours of individualized therapy daily on at least 5 of bull ry 7 days Madhu COOPER'chelle prognosis for significant practical improvement within a reasonable period of time appears Good Expected level of measurable improvement will be of a practical value to Madhu COOPER's functional capaci ty or adaptations to impairments Has a viable Discharge Plan Medically appropriate; condition is sufficiently stable to participate in intensive rehab program DISCHARGE PLAN: - Estimated Length of Stay (days) 13. - Consensus on plan Discharge plan has been discussed with primary caregiver. Patient/Family is in agreement with the zack n. Primary caregiver is in agreement with the plan. - Patient/Family Goals Return home with assistance. - Planned Living Setting Upon Discharge Home, to live with Family/Relatives. RECOMMENDED CARE LEVEL: IRF RECOMMENDATION DETAILS: Recommended Admission to Comprehensive Rehabilitation Program to Increase Functional [place] SCREENER'S COMPLETENESS CONFIRMATION: - Screening Confirmation The patient data collection on this preadmission screening form is finished PHYSICIANS REVIEW AND ADMISSION DETERMINATION Admit - Based on my review of the Pre-Admission Screening results, in my medical judgment and experie nce, I concur with the findings and recommend admission to [facility], as this patient requires an IRF level of care. SIGNATURE PANEL: Clinical Liaison - [electronically] signed by Jelly Gilbert Cylindrical Mixer on 05/17/2019 at 10:19 (C DT) Clinical Liaison - [electronically] signed by Vickie Guzmán RN on 05/17/2019 at 10:56 (CDT) Physician Reviewer - [electronically] signed by Dr. Jimenez Agrawal M.D. on 05/17/2019 at 11:02 (CDT )
[2019-05-17] MEDS ORDERED: IBUPROFEN 200 MG TAB PO PRN (14:24)
[2019-05-17] MEDS ORDERED: DIPHENHYDRAMINE 25 MG TAB/CAP PO PRN (14:24)
[2019-05-17] MEDS ORDERED: GLUCAGON 1 MG/VIAL IM PRN (14:29)
[2019-05-17] MEDS ORDERED: D50W 25 GM/50 ML SYRINGE/VIAL IV PRN (14:29)
[2019-05-17] MEDS ORDERED: ENOXAPARIN 40 MG/0.4 ML SQ SCH (15:00)
[2019-05-17] MEDS: METFORMIN HCL 500 MG TAB PO SCH (17:27)
[2019-05-17] MEDS: glipiZIDE 5 MG TAB PO SCH (17:27)
[2019-05-17] MEDS: INSULIN -REGULAR HUMAN 50 UNIT/0.5 ML ML SQ SCH ×2 (17:28→20:32)
[2019-05-17 17:51] LABS: Urine Appearance CLEAR; Urine Bilirubin NEGATIVE (NEG); Urine Blood NEGATIVE (NEG); Urine Color YELLOW; Urine Glucose 1+ (NEG); Urine Protein NEGATIVE (NEG)
[2019-05-17 18:30] LABS: Urine Bacteria <20 /HPF (<20); Urine Culture Reflex Order REFLEXED; Urine RBC <5 /HPF (NONE SEEN)
[2019-05-17] MEDS: PREGABALIN 150 MG CAP PO SCH (19:37)
[2019-05-17] MEDS: AMOX/K CLAV 875 MG TAB PO SCH (19:37)
[2019-05-17] MEDS: ATORVASTATIN 20 MG TAB PO SCH (20:31)
[2019-05-17] MEDS: ARFORMOTEROL TARTRATE 15 MCG/2 ML VIAL.NEB NEB SCH (21:45)
[2019-05-18] MEDS: INSULIN -REGULAR HUMAN 50 UNIT/0.5 ML ML SQ SCH ×4 (07:30→20:45)
[2019-05-18] MEDS: ARFORMOTEROL TARTRATE 15 MCG/2 ML VIAL.NEB NEB SCH ×2 (07:45→20:25)
[2019-05-18 08:00] LABS: Albumin 2.7 g/dL (3.4-5.0); BUN Blood Urea Nitrogen 12 mg/dL (7-18); Bicarbonate 29 mmol/L (21-32); Glucose Level 107 mg/dL (74-106); Magnesium 2.4 mg/dL (1.8-2.4); Potassium 4.1 mmol/L (3.5-5.1); Prealbumin 16.7 mg/dL (20-40); Sodium Level 139 mmol/L (136-145)
[2019-05-18] MEDS: AMLODIPINE 5 MG TAB PO SCH (08:00)
[2019-05-18] MEDS: LOSARTAN POTASSIUM 50 MG TABLET PO SCH (08:00)
[2019-05-18 08:36] LABS: Basophils % 1.3 % (0-1.3); Hematocrit 30.7 % (36.0-45.0); Lymphocytes % 28.2 % (15.3-44.8); RBC Red Blood Cell Count 3.79 M/uL (3.86-4.86)
[2019-05-18] MEDS: CYANOCOBALAMIN 1,000 MCG TAB PO SCH (08:55)
[2019-05-18] MEDS: METFORMIN HCL 500 MG TAB PO SCH ×2 (08:56→17:12)
[2019-05-18] MEDS: FLUOXETINE 20 MG CAP PO SCH (08:57)
[2019-05-18] MEDS: ASPIRIN EC 81 MG TAB PO SCH (08:57)
[2019-05-18] MEDS: glipiZIDE 5 MG TAB PO SCH (08:57)
[2019-05-18] MEDS: PREGABALIN 150 MG CAP PO SCH ×2 (08:58→20:45)
[2019-05-18] MEDS: AMOX/K CLAV 875 MG TAB PO SCH ×2 (08:58→20:45)
[2019-05-18] MEDS: PANTOPRAZOLE 40MG TABLET PO SCH (08:59)
[2019-05-18] MEDS: ENOXAPARIN 40 MG/0.4 ML SQ SCH (09:01)
--- NOTE | 2019-05-18 16:34 | R.HP ---
FACILITY: [facility] ENCOUNTER DATE AND TIME: 05/18/2019 16:28 (CDT) MR#: [id number] NAME JUSTINA COOPER ADDRESS: [address] [place] [address] CITY: [place] [address]IP [id number] PHONE: DATE OF : 1945 AGE: 73 SSN# [id number] GENDER: Female DEXTERITY Right-handed MARITAL STATUS RACE White PRE-HOSPITAL LIVING SETTING 01 - Home (private home/apt. board/care, assisted living, alf, transitional living) PRE-HOSPITAL LIVING WITH Family/Relatives ENCOUNTER PHYSICIAN: Dr. Jimenez Agrawal M.D. REFERRING DOCTOR: Dr Martínez DATE OF ADMISSION: 05/17/2019 13:26 (CDT) REFERRING FACILITY [facility] HOME TYPE AND DETAILS: Type of home: 2 bremen Home # of steps to enter the residence: 1 # of levels in the residence: 2 Prior to recent hospitalization, pt was living in a multistory home with her son. pt does not requir e access to the 2nd floor. There is 1 step to enter the home. pt reports that she was ambulatory wi thout the use of an AD. pt states that she does own a RW. pt has a tub shower. pt reports normally being independent with ADLs and self cares. ONSET DATE: 05/08/2019 PRIMARY DIAGNOSIS-RELATED SURGERIES: No surgeries related to the primary diagnosis were performed. HISTORY OF PRESENT ILLNESS (HPI): Pt. is a 73 yo Right-handed white female. On 05/08/2019 she was admitted to [facility] with diagnosis Pneumonia . Her impairment category is Medically Complex Conditions 17 - Respiratory Disorders - Non-ventilator Dependent (17.52). Pre-morbidly, Pt. was independent/mod-I in Transfers Control, Locomotion, and Self-Care; and she had good Balance, Safety Awareness, Sphincter Control, and Communication. Currently, she has deficits of Transfers Control, Locomotion, Safety Awareness, and Self-Care. Pt. is now referred to [facility] for acute in-patient rehabilitation in order to maximize patient's functional independence in activities of daily living, strength, ROM, and mobi lity. Patient has realistic goal of being discharged at assistance level 6-Larisa to reside at Home with Fam vidhi/Relatives. MEDICATION ALLERGIES: Carbamazapine Iodine ENVIRONMENTAL ALLERGIES: None Known - Substance Allergies None Known - Other Allergies None Known PAST MEDICAL HISTORY: AFIB COPD Abscess of lung with pneumonia (J85.1) HYPOXEMIA Diabetes HTN Dehydration PAST SURGICAL HISTORY: BLADDER SUSPENSION R ankle sx Stomach SX Breast Biopsy APPENDECTOMY HYSTERECTOMY FAMILY HISTORY: Family history is not contributory. SOCIAL HISTORY: - Home Living Family/Relatives REVIEW OF SYSTEMS: - Gen No Chills Fatigue No Fever - Eyes No Double Vision No itchiness - ENMT No Difficulty Swallowing - CVS No Chest Discomfort No Chest Pain Fatigue No Weight Gain - Resp No Cough No Shortness of Breath - GI Continent No Abdominal Pain No Constipation No Diarrhea - Continent No Kidney Pain No Painful Urination No Urinary Urgency - MSK No Joint Pain No Muscle Cramps Stiffness - Skin No Itching No Rash No Suspicious Lesions - Neuro Coordination Difficulty No Difficulty with Concentration No Memory Loss No Seizures Weakness - Psych No Anxiety No Depression No HIV Exposure No Persistent Infections No Seasonal Allergies - Endo No Cold/Heat Intolerance No Excessive Hunger No Excessive Thirst No Excessive Urination PHYSICAL EXAM - Gen Alert and awake Lying in bed No apparent distress Oriented to: person, time, and place - Skin No breakdown No abnormalities - Eyes No abnormalities - Neck No abnormalities No cervical adenopathy - CVS RRR - Chest No abnormalities - Resp Clear to auscultation - Abd Soft - GI Non distended Deferred - No abnormalities - Ext No significant edema - MSK 4/5 weakness in both lower extremities. - Neuro No focal deficits - Psych No abnormalities VITAL SIGNS Temperature: 98.4 F SBP/DBP: 119/53 Pulse: 77 Resp: 16 NURSING: - Shower allowing shower ACTIVITIES OOB only with supervision QI SCORES: - Self-Care A. Eating 05-Setup or clean-up assistance B. Oral hygiene 05-Setup or clean-up assistance C. Toileting hygiene 04-Supervision or touching assistance E. Shower/bathe self 10-Not attempted due to environmental limitations F. Upper body dressing 04-Supervision or touching assistance G. Lower body dressing 88-Not attempted due to medical condition or safety concerns H. Putting on/taking off footwear 88-Not attempted due to medical condition or safety concerns - Mobility A. Roll left and right 04-Supervision or touching assistance B. Sit to lying 04-Supervision or touching assistance C. Lying to sitting on side of bed 04-Supervision or touching assistance D. Sit to stand 04-Supervision or touching assistance E. Chair/tdy-zw-csari transfer 04-Supervision or touching assistance F. Toilet transfer 04-Supervision or touching assistance G. Car transfer 10-Not attempted due to environmental limitations I. Walk 10 feet 04-Supervision or touching assistance J. Walk 50 feet with two turns 88-Not attempted due to medical condition or safety concerns K. Walk 150 feet 88-Not attempted due to medical condition or safety concerns L. Walking 10 feet on uneven surfaces 88-Not attempted due to medical condition or safety concerns M. 1 step (curb) 88-Not attempted due to medical condition or safety concerns N. 4 steps 88-Not attempted due to medical condition or safety concerns O. 12 steps 88-Not attempted due to medical condition or safety concerns P. Picking up object 88-Not attempted due to medical condition or safety concerns - Bladder and Bowel Bladder continence 0-Always continent Bowel continence 0-Always continent - Endurance Poor - Balance Poor - Safety Awareness Poor CURRENT FUNC. DEFICITS: Self-Care, Mobility, Endurance, Balance, and Safety Awareness MEDICATIONS: - Other See attached MAR (Medication Administration Record) ASSESSMENT: Pt. is a 73 yo Right-handed white female.On 05/08/2019 she was admitted to [facility] with diagno sis Pneumonia .Her impairment category is Medically Complex Conditions 17 - Respiratory Di sorders - Non-ventilator Dependent (17.52).Pre-morbidly, Pt. was independent/mod-I in Transfers Contr ol, Locomotion, and Self-Care; and she had good Balance, Safety Awareness, Sphincter Control, and Com munication.Currently, she has deficits of Transfers Control, Locomotion, Safety Awareness, and Self-C are.Pt. is now referred to [facility] for acute in-patient rehabilitation in [facility] to maximize patient's functional independence in activities of daily living, strength, ROM, and mobility.- Rehab Goal Patient has realistic goal of being discharged at assistance level 6-Larisa to reside at Home with Fam vidhi/Relatives. REHAB PLAN: - Physical Therapy Gait dysfunction - to improve, our physical therapists will perform initial evaluation of pt's status upon admission and devise an individualized program for Gait Training, and Wheel Chair mobility Inability to transfer - to improve, our physical therapists will perform initial evaluation of pt's s tatus upon admission and devise an individualized program for Bed mobility Need for home safety evaluation - to improve, our physical therapists will perform initial evaluation of pt's status upon admission and devise an individualized program for Home Evaluation Need in caregiver upon discharge - to improve, our physical therapists will perform initial evaluatio n of pt's status upon admission and devise an individualized program for Caregiver Training Edema - to improve, our physical therapists will perform initial evaluation of pt's status upon admi ssion and devise an individualized program for Elevation Training, and Lymphedema Therapy New precaution - to improve, our physical therapists will perform initial evaluation of pt's status u virgilio admission and devise an individualized program for Patient precaution education Weakness - to improve, our physical therapists will perform initial evaluation of pt's status upon ad mission and devise an individualized program for Aquatic Therapy, Neuromuscular Reeducation, and Stre ngthening Achieving independence - to improve, our physical therapists will perform initial evaluation of pt's status upon admission and devise an individualized program for Community Reintegration Activities - Occupational Therapy ADL deficits - to improve, our occupation therapists will perform initial evaluation of pt's status u virgilio admission and devise an individualized program for Bathing, Bed mobility, Community Reintegration , Cooking, Dressing, Eating, Fine Motor Skills, Grooming, Homemaking, Kitchen Mobility, Laundry, Hailey ent Education, Safety Awareness, Splinting - Positioning, Transfers(Toilet, Tub, Shower), and Wheel C hair Management Need for ambulatory care - to improve, our occupation therapists will perform initial evaluation of pt's s tatus upon admission and devise an individualized program for Caregiver Training Weakness - to improve, our occupation therapists will perform initial evaluation of pt's status upon admission and devise an individualized program for Aquatic Therapy, Balance, Endurance, UE ROM, and U E strengthening MEDICAL PLAN: - Diet Type Start Regular - Diet - Liquid Texture Start Regular - Tube Feed Start N/A - Other See attached MAR (Medication Administration Record) - Diet - Solid Texture Regular - Shower shower DISCHARGE PLAN: - Estimated Length of Stay (days) 13. - Consensus on plan Discharge plan has been discussed with primary caregiver. Patient/Family is in agreement with the zack n. Primary caregiver is in agreement with the plan. - Patient/Family Goals Return home with assistance. - Planned Living Setting Upon Discharge Home, to live with Family/Relatives. SIGNATURE PANEL: (CDT)
--- NOTE | 2019-05-18 16:35 | PAPE ---
PATIENT: [facility] MR# [id number] REFERRING DOCTOR Dr Martínez EVALUATION DATE AND TIME 05/18/2019 16:33 (CDT) NAME JUSTINA COOPER PLACE DATE OF 1945 AGE 73 PHONE SSN# [id number] GENDER female EVALUATING PHYSICIAN Dr. Jimenez Agrawal M.D. ADMISSION DIAGNOSIS: Pneumonia ONSET DATE 05/08/2019 POST-ADMISSION FUNCTIONAL/MEDICAL STATUS: - Walking Same score based on distance walked: 1(<=50ft) STATUS CHANGE EVALUATION: No change in Functional or Medical Status is identified compared with Pre-Admission screening. PATIENT NEEDS CLOSE MEDICAL SUPERVISION BY A REHABILITATION PHYSICIAN FOR: Coordination of Treatment Team PATIENT REQUIRES 24X7 REHAB NURSING FOR MEDICAL AND FUNCTIONAL MGT. OF THE FOLLOWING DEFICITS: Disease Management Medication Management Patient/Family Education Providing Safe Environment PATIENT REQUIRES INTENSIVE, COORDINATED INTERDISCIPLINARY APPROACH TO REHAB: Arranging Home Equipment/Services Discharge Planning Family Intervention/Training Attraction Worker/Case Management LIST OF IDENTIFIED AND POTENTIAL PROBLEMS: Alteration in leisure activities Infection, Actual or Potential Mobility Impaired Pain, Alteration in Comfort Self Care Deficit Skin Integrity, Actual or Potential Urinary Tract Infection (UTI), Actual or Potential PATIENT COULD BE AT RISK FOR COMPLICATIONS FROM ADVERSE MEDICAL CONDITIONS DUE TO HIS/HER COMORBIDITI ES AND THE RIGORS OF THE INTENSIVE REHABILLITATION PROGRAM. METHODS OR INTERVENTIONS TO AVOID COMPLIC ATIONS INCLUDE: - Infection Clinical staff to assess and manage the signs and symptoms of infection including fever, redness, war mth, etc. - Urinary Tract Infection - Falls Patient will be evaluated for Fall Precautions and will be placed on Fall Precautions as indicated pe r protocol. - Skin Breakdown Nursing will assess skin daily using assessment tool and will place on Skin Breakdown Precautions as indicated per protocol. - Pain Clinical staff may employ non-medication methods such as massage, distraction, decrease stimulus, etc . as needed. Clinical staff will assess patient's pain level every shift per protocol to assess and e nsure pain management effectiveness. Medications will be given and the pain level re-assessed. PRELIMINARY PLAN OF CARE: - Physical Therapy Patient needs Physical Therapy for a daily minimum of 1.5 hours at least 5 out of 7 days, to improve: Mobility, Strengthening, Transfers, Stretching, ROM, Endurance, Ability to manage stairs, Gait, and Balance. - Speech Therapy Patient needs Speech Therapy for a daily minimum of 0.5 hours at least 5 out of 7 days, to improve: S wallowing, Cognition, Language Skills, and Compensatory Strategies. - Rehabilitation Nursing Patient requires 24x7 Rehabilitation Nursing for: Pain Issues, Identifying and preventing risk factor s, Monitoring and reporting current medical conditions, Assisting with ambulation and transfer, Juan ting with all ADL-s, Teaching patients about disease process and medications, Family teaching, Provid ing safe environment, Bowel and Bladder Issues, Skin Integrity, and Medication Management. Patient needs Attraction Worker and/or Case Management for: Discharge Planning, Arranging Home Equipmen t or Services, and Family Interventions. - Dietary and Nutrition Services Patient needs Dietary and Nutrition Services for: Adequate Nutrition, Nutritional Supplements, and Nu tritional Education. - Occupational Therapy Patient needs Occupational Therapy for a daily minimum of 1.5 hours at least 5 out of 7 days, to impr ove Activities of Daily Living, including: Eating, Grooming, Bathing, Dressing, Toileting, Toilet Tra nsfers, Community Reintegration, Higher functional activities, Adaptive Equipment, Splinting, Househo ld Tasks, and Other activities as determined. QI SCORES: - Self-Care A. Eating 05-Setup or clean-up assistance B. Oral hygiene 05-Setup or clean-up assistance C. Toileting hygiene 04-Supervision or touching assistance E. Shower/bathe self 10-Not attempted due to environmental limitations F. Upper body dressing 04-Supervision or touching assistance G. Lower body dressing 88-Not attempted due to medical condition or safety concerns H. Putting on/taking off footwear 88-Not attempted due to medical condition or safety concerns - Mobility A. Roll left and right 04-Supervision or touching assistance B. Sit to lying 04-Supervision or touching assistance C. Lying to sitting on side of bed 04-Supervision or touching assistance D. Sit to stand 04-Supervision or touching assistance E. Chair/nrq-hr-duqon transfer 04-Supervision or touching assistance F. Toilet transfer 04-Supervision or touching assistance G. Car transfer 10-Not attempted due to environmental limitations I. Walk 10 feet 04-Supervision or touching assistance J. Walk 50 feet with two turns 88-Not attempted due to medical condition or safety concerns K. Walk 150 feet 88-Not attempted due to medical condition or safety concerns L. Walking 10 feet on uneven surfaces 88-Not attempted due to medical condition or safety concerns M. 1 step (curb) 88-Not attempted due to medical condition or safety concerns N. 4 steps 88-Not attempted due to medical condition or safety concerns O. 12 steps 88-Not attempted due to medical condition or safety concerns P. Picking up object 88-Not attempted due to medical condition or safety concerns - Bladder and Bowel Bladder continence 0-Always continent Bowel continence 0-Always continent - Endurance Poor - Balance Poor - Safety Awareness Poor POTENTIAL FUNCTIONAL GOALS FOR PATIENT TO ACHIEVE BY DISCHARGE: - Safety Precaution Patient will remain free from falls or injury at time of discharge. - Bed Mobility Patient will perform bed mobility at 4-Damon level of assistance. - Transfers Patient will complete transfers from bed to chair at 4-Damon level of assistance. - Mobility Patient will ambulate 150 ft with 4-Damon level of assistance with RW. PATIENT REHAB POTENTIAL Madhu COOPER is able and expected to receive 3 hours of individualized therapy daily on at least 5 of 7 days Madhu Kimble prognosis for significant practical improvement within a reasonable period of time appears Good Expected level of measurable improvement will be of a practical value to Madhu COOPER's functional capaci ty or adaptations to impairments Has a viable Discharge Plan Medically appropriate; condition is sufficiently stable to participate in intensive rehab program DISCHARGE PLAN: - Estimated Length of Stay (days) 13. - Consensus on plan Discharge plan has been discussed with primary caregiver. Patient/Family is in agreement with the zack n. Primary caregiver is in agreement with the plan. - Patient/Family Goals Return home with assistance. - Planned Living Setting Upon Discharge Home, to live with Family/Relatives. CONCLUSION ON REHABILITATION NECESSITY: I have evaluated patient's pre-admission functional status and, comparing it to the patient's post-ad mission functional status now, I conclude that the pre-admission assessment was accurate. Patient's c ondition on admission supports the medical necessity of admission to [facility]. It is safe to proceed with patient's therapy program. SIGNATURE PANEL: (CDT)
[2019-05-18] MEDS: GLIPIZIDE S.A. 5 MG TAB PO SCH (18:29)
[2019-05-18] MEDS: ATORVASTATIN 20 MG TAB PO SCH (20:45)
[2019-05-19] MEDS: ENOXAPARIN 40 MG/0.4 ML SQ SCH (06:57)
[2019-05-19] MEDS: PANTOPRAZOLE 40MG TABLET PO SCH (06:57)
[2019-05-19] MEDS: INSULIN -REGULAR HUMAN 50 UNIT/0.5 ML ML SQ SCH ×4 (07:30→19:43)
[2019-05-19] MEDS: ARFORMOTEROL TARTRATE 15 MCG/2 ML VIAL.NEB NEB SCH ×2 (07:40→20:55)
[2019-05-19] MEDS: LOSARTAN POTASSIUM 50 MG TABLET PO SCH (10:17)
[2019-05-19] MEDS: FERROUS SULFATE 325 MG TAB PO SCH (10:17)
[2019-05-19] MEDS: FLUOXETINE 20 MG CAP PO SCH (10:18)
[2019-05-19] MEDS: METFORMIN HCL 500 MG TAB PO SCH ×2 (10:18→17:33)
[2019-05-19] MEDS: CYANOCOBALAMIN 1,000 MCG TAB PO SCH (10:18)
[2019-05-19] MEDS: AMOX/K CLAV 875 MG TAB PO SCH ×2 (10:18→19:43)
[2019-05-19] MEDS: PREGABALIN 150 MG CAP PO SCH ×2 (10:19→19:43)
[2019-05-19] MEDS: AMLODIPINE 5 MG TAB PO SCH (10:19)
[2019-05-19] MEDS: FE SULF/FA/VIT B COMP & C TAB PO SCH (10:19)
[2019-05-19] MEDS: ASPIRIN EC 81 MG TAB PO SCH (10:20)
[2019-05-19] MEDS: GLIPIZIDE S.A. 5 MG TAB PO SCH ×2 (10:20→17:33)
[2019-05-19] MEDS ORDERED: BENZONATATE 100 MG CAP PO PRN (12:44)
[2019-05-19] MEDS ORDERED: GUAIFENESIN/DM 5 ML UCUP PO PRN (12:45)
--- NOTE | 2019-05-19 16:02 | R.PN ---
ENCOUNTER DATE AND TIME: 05/19/2019 15:40 (CDT) NAME JUSTINA COOPER DATE OF : 1945 DATE OF ADMISSION: 05/17/2019 13:26 (CDT) Pneumonia CHIEF COMPLAINT: Debility and pneumonia SUBJECTIVE: Pt denied any depression. Pt denied any Shortness of Breath. WBC 10.5, Hgb 9.7, Plt 530 glucose 165 to 295, UA 1+ esterase, < 20 bacteria, cultures 2+ yeast. Ambulating 507" with standby assistance using a rolling walker. Up and down 15 steps with standby ass istance. Patient states that pain is under control. VITAL SIGNS Temperature: 99.2 F SBP/DBP: 136/74 Pulse: 81 Resp: 14 MEDICATION ALLERGIES: Carbamazapine Iodine ENVIRONMENTAL ALLERGIES: None Known - Substance Allergies None Known - Other Allergies None Known NURSING: - Shower allowing shower ACTIVITIES OOB only with supervision THERAPIES: - Dietary and Nutrition Adequate Nutrition. Nutritional Education. Nutritional Supplements. PHYSICAL EXAM - Gen Alert and awake Lying in bed No apparent distress Oriented to: person, time, and place - Skin No breakdown No abnormalities - Eyes No abnormalities - Neck No abnormalities No cervical adenopathy - CVS RRR - Chest No abnormalities - Resp Clear to auscultation - Abd Soft - GI Non distended Deferred - No abnormalities - Ext No significant edema - MSK 4/5 weakness in both lower extremities. - Neuro No focal deficits - Psych No abnormalities ASSESSMENT: Pt. is a 73 yo Right-handed white female.On 05/08/2019 she was admitted to [facility] with diagno sis Pneumonia .Her impairment category is Medically Complex Conditions 17 - Respiratory Di sorders - Non-ventilator Dependent (17.52).Pre-morbidly, Pt. was independent/mod-I in Transfers Contr ol, Locomotion, and Self-Care; and she had good Balance, Safety Awareness, Sphincter Control, and Com munication.Currently, she has deficits of Transfers Control, Locomotion, Safety Awareness, and Self-C are.Pt. is now referred to [facility] for acute in-patient rehabilitation in [facility] to maximize patient's functional independence in activities of daily living, strength, ROM, and mobility.- Rehab Goal Patient has realistic goal of being discharged at assistance level 6-Larisa to reside at Home with Fam vidhi/Relatives. MDM/PLAN: - Physical Therapy Gait dysfunction - to improve, our physical therapists will perform initial evaluation of pt's statu s upon admission and devise an individualized program for Gait Training, and Wheel Chair mobility Inability to transfer - to improve, our physical therapists will perform initial evaluation of pt's status upon admission and devise an individualized program for Bed mobility Need for home safety evaluation - to improve, our physical therapists will perform initial evaluatio n of pt's status upon admission and devise an individualized program for Home Evaluation Edema - to improve, our physical therapists will perform initial evaluation of pt's status upon admis sonya and devise an individualized program for Elevation Training, and Lymphedema Therapy Need in caregiver upon discharge - to improve, our physical therapists will perform initial evaluati on of pt's status upon admission and devise an individualized program for Caregiver Training New precaution - to improve, our physical therapists will perform initial evaluation of pt's status upon admission and devise an individualized program for Patient precaution education Weakness - to improve, our physical therapists will perform initial evaluation of pt's status upon a dmission and devise an individualized program for Aquatic Therapy, Neuromuscular Reeducation, and Str engthening Achieving independence - to improve, our physical therapists will perform initial evaluation of pt's status upon admission and devise an individualized program for Community Reintegration Activities - Occupational Therapy ADL deficits - to improve, our occupation therapists will perform initial evaluation of pt's status upon admission and devise an individualized program for Bathing, Bed mobility, Community Reintegratio n, Cooking, Dressing, Eating, Fine Motor Skills, Grooming, Homemaking, Kitchen Mobility, Laundry, Pat ient Education, Safety Awareness, Splinting - Positioning, Transfers(Toilet, Tub, Shower), and Wheel Chair Management Need for adult care provider - to improve, our occupation therapists will perform initial evaluation of pt's status upon admission and devise an individualized program for Caregiver Training Weakness - to improve, our occupation therapists will perform initial evaluation of pt's status upon admission and devise an individualized program for Aquatic Therapy, Balance, Endurance, UE ROM, and UE strengthening - Other See attached MAR (Medication Administration Record) - Diet Type Continue Regular - Diet - Liquid Texture Continue Regular - Tube Feed Continue N/A - Diet - Solid Texture Continue Regular - Shower allowing shower FUNCTIONAL STATUS: UPDATED AT WEEKLY TEAM CONFERENCE - Walking Same score based on distance walked: 1(<=50ft) FUNCTIONAL STATUS: - Self-Care A. Eating Ind B. Grooming Ind C. Bathing sup D. Dressing - Upper sup E. Dressing - Lower Damon F. Toileting sup - Sphincter Control G. Bladder control Larisa H. Bowel control Larisa - Transfers Control I. Bed/Chair/Wheelchair sup J. Toilet sup K. Tub/Shower Damon - Locomotion L. Walk/Wheelchair (B) Damon M. Stairs maxA - Communication N. Comprehension (B) sup O. Expression (B) sup - Social Cognition P. Social Interaction Larisa Q. Problem Solving Damon R. Memory sup - Endurance Fair - Balance Poor - Safety Awareness Fair QI SCORES: - Self-Care A. Eating 05-Setup or clean-up assistance B. Oral hygiene 05-Setup or clean-up assistance C. Toileting hygiene 04-Supervision or touching assistance E. Shower/bathe self 10-Not attempted due to environmental limitations F. Upper body dressing 04-Supervision or touching assistance G. Lower body dressing 88-Not attempted due to medical condition or safety concerns H. Putting on/taking off footwear 88-Not attempted due to medical condition or safety concerns - Mobility A. Roll left and right 04-Supervision or touching assistance B. Sit to lying 04-Supervision or touching assistance C. Lying to sitting on side of bed 04-Supervision or touching assistance D. Sit to stand 04-Supervision or touching assistance E. Chair/naz-ll-xudsd transfer 04-Supervision or touching assistance F. Toilet transfer 04-Supervision or touching assistance G. Car transfer 10-Not attempted due to environmental limitations I. Walk 10 feet 04-Supervision or touching assistance J. Walk 50 feet with two turns 88-Not attempted due to medical condition or safety concerns K. Walk 150 feet 88-Not attempted due to medical condition or safety concerns L. Walking 10 feet on uneven surfaces 88-Not attempted due to medical condition or safety concerns M. 1 step (curb) 88-Not attempted due to medical condition or safety concerns N. 4 steps 88-Not attempted due to medical condition or safety concerns O. 12 steps 88-Not attempted due to medical condition or safety concerns P. Picking up object 88-Not attempted due to medical condition or safety concerns - Bladder and Bowel Bladder continence 0-Always continent Bowel continence 0-Always continent - Endurance Poor - Balance Poor - Safety Awareness Poor CURRENT FUNC. DEFICITS: Self-Care, Mobility, Endurance, Balance, and Safety Awareness SIGNATURE PANEL: (CDT)
--- NOTE | 2019-05-19 19:18 | PN ---
Date of Progress Note: 05/19/2019 Diagnosis: Pneumonia. Subjective: Patient in rehab right now. The patient has a cholecystectomy more than a week ago. Jose nick is doing better, tolerating diet. Physical Examination: Chest: Clear. Abdomen: Soft and depressible. Intact surgical site. NIK drain clear. It was removed today intact by me. [place] also removed. Extremities: Good capillary refill. Plan: Continue rehabilitation. Follow up in my office in 4 weeks after she gets discharged home. N o heavy lifting. VAISHNAVI/VIJAY Voice ID: [id number] Report ID: [id number]
[2019-05-19] MEDS: ATORVASTATIN 20 MG TAB PO SCH (19:43)
[2019-05-20 06:51] LABS: Absolute Lymphocytes (CBC) 3.3 K/uL (0.7-4.9); Basophils % 0.5 % (0-1.3); Hematocrit 30.8 % (36.0-45.0); Lymphocytes % 27.7 % (15.3-44.8); MPV 8.3 fL (7.6-11.3); RBC Red Blood Cell Count 3.83 M/uL (3.86-4.86)
[2019-05-20] MEDS: ENOXAPARIN 40 MG/0.4 ML SQ SCH (07:06)
[2019-05-20] MEDS: PANTOPRAZOLE 40MG TABLET PO SCH (07:06)
[2019-05-20] MEDS: INSULIN -REGULAR HUMAN 50 UNIT/0.5 ML ML SQ SCH ×4 (07:30→20:11)
[2019-05-20] MEDS: ARFORMOTEROL TARTRATE 15 MCG/2 ML VIAL.NEB NEB SCH ×2 (07:35→20:15)
[2019-05-20 07:37] LABS: Albumin 2.8 g/dL (3.4-5.0); Potassium 5.1 mmol/L (3.5-5.1); Prealbumin 18.5 mg/dL (20-40)
[2019-05-20] MEDS: METFORMIN HCL 500 MG TAB PO SCH ×2 (10:06→17:06)
[2019-05-20] MEDS: FERROUS SULFATE 325 MG TAB PO SCH (10:06)
[2019-05-20] MEDS: AMLODIPINE 5 MG TAB PO SCH (10:06)
[2019-05-20] MEDS: ASPIRIN EC 81 MG TAB PO SCH (10:06)
[2019-05-20] MEDS: PREGABALIN 150 MG CAP PO SCH ×2 (10:07→20:10)
[2019-05-20] MEDS: CYANOCOBALAMIN 1,000 MCG TAB PO SCH (10:07)
[2019-05-20] MEDS: AMOX/K CLAV 875 MG TAB PO SCH ×2 (10:08→20:10)
[2019-05-20] MEDS: FE SULF/FA/VIT B COMP & C TAB PO SCH (10:08)
[2019-05-20] MEDS: GLIPIZIDE S.A. 5 MG TAB PO SCH ×2 (10:09→17:06)
--- NOTE | 2019-05-20 11:19 | FAST ---
SHIFT START DATE/TIME: 05/20/2019 07:00 (CDT) SHIFT END DATE/TIME: 05/20/2019 19:00 (CDT) NAME JUSTINA COOPER DATE OF : 1945 DATE OF ADMISSION: 05/17/2019 13:26 (CDT) PHONE: AGE: 73 N# [id number] GENDER: Female ENCOUNTER PHYSICIAN: Dr. Jimenez Agrawal M.D. ADMISSION DIAGNOSIS: - Medically Complex Conditions 17 - Respiratory Disorders - Non-ventilator Dependent (17.52) Pneumonia . EATING: EATING - STEP 1: Does the patient complete the activity by him/herself with no assistance (physical, verbal/nonverbal cueing, setup/clean-up)? No. EATING - STEP 2: Does the patient need only setup/clean-up assistance from one helper? No. EATING - STEP 3: Does the patient need only verbal/nonverbal cueing or touching/steadying/contact guard assistance fro m one helper? Yes. 1. [id number] ADMISSION PERFORMANCE: Supervision or touching assistance CODE: 04 ORAL HYGIENE: ORAL HYGIENE - STEP 1: Does the patient complete the activity by him/herself with no assistance (physical, verbal/nonverbal cueing, setup/clean-up)? No. ORAL HYGIENE - STEP 2: Does the patient need only setup/clean-up assistance from one helper? No. ORAL HYGIENE - STEP 3: Does the patient need only verbal/nonverbal cueing or touching/steadying/contact guard assistance fro m one helper? Yes. 1. [id number] ADMISSION PERFORMANCE: Supervision or touching assistance CODE: 04 TOILETING HYGIENE: TOILETING HYGIENE - STEP 1: Does the patient complete the activity by him/herself with no assistance (physical, verbal/nonverbal cueing, setup/clean-up)? No. TOILETING HYGIENE - STEP 2: Does the patient need only setup/clean-up assistance from one helper? No. TOILETING HYGIENE - STEP 3: Does the patient need only verbal/nonverbal cueing or touching/steadying/contact guard assistance fro m one helper? Yes. 1. [id number] ADMISSION PERFORMANCE: Supervision or touching assistance CODE: 04 BATHING: Not assessed/no information CODE: - DRESSING - UPPER BODY: Not assessed/no information CODE: - DRESSING - LOWER BODY: Not assessed/no information CODE: - PUTTING ON/TAKING OFF FOOTWEAR: Not assessed/no information CODE: - ROLL LEFT AND RIGHT: Not assessed/no information CODE: - SIT TO LYING: Not assessed/no information CODE: - LYING TO SITTING: Not assessed/no information CODE: - SIT TO STAND: SIT TO STAND - STEP 1: Does the patient complete the activity by him/herself with no assistance (physical, verbal/nonverbal cueing, setup/clean-up)? No. SIT TO STAND - STEP 2: Does the patient need only setup/clean-up assistance from one helper? Yes. 1. [id number] ADMISSION PERFORMANCE: Setup or clean-up assistance CODE: 05 TRANSFERS: BED, CHAIR: CHAIR/[id number] TRANSFER - STEP 1: Does the patient complete the activity by him/herself with no assistance (physical, verbal/nonverbal cueing, setup/clean-up)? No. CHAIR/[id number] TRANSFER - STEP 2: Does the patient need only setup/clean-up assistance from one helper? No. CHAIR/[id number] TRANSFER - STEP 3: Does the patient need only verbal/nonverbal cueing or touching/steadying/contact guard assistance fro m one helper? Yes. 1. [id number] ADMISSION PERFORMANCE: Supervision or touching assistance CODE: 04 TRANSFER TOILET: TOILET TRANSFER - STEP 1: Does the patient complete the activity by him/herself with no assistance (physical, verbal/nonverbal cueing, setup/clean-up)? No. TOILET TRANSFER - STEP 2: Does the patient need only setup/clean-up assistance from one helper? No. TOILET TRANSFER - STEP 3: Does the patient need only verbal/nonverbal cueing or touching/steadying/contact guard assistance fro m one helper? No. TOILET TRANSFER - STEP 4: Does the patient need physical assistance - for example lifting or trunk support from one helper - wi th the helper providing less than half of the effort? Yes. 1. [id number] ADMISSION PERFORMANCE: Partial/moderate assistance CODE: 03 TRANSFERS: CAR: Not assessed/no information CODE: - WALK 10 FEET: Not assessed/no information CODE: - 1 STEP (CURB): Not assessed/no information CODE: - PICKING UP OBJECT: Not assessed/no information CODE: - DOES THE PATIENT USE A WHEELCHAIR/SCOOTER? CODE: EXPR WHEEL 50 FEET WITH TWO TURNS: Not assessed/no information CODE: - INDICATE THE TYPE OF WHEELCHAIR/SCOOTER USED: CODE: EXPR WHEEL 150 FEET: Not assessed/no information CODE: - INDICATE THE TYPE OF WHEELCHAIR/SCOOTER USED: CODE: EXPR BLADDER AND BOWEL: H350. BLADDER CONTINENCE (3-DAY ASSESSMENT PERIOD): Not applicable (e.g., indwelling catheter) CODE: 9 H400. BOWEL CONTINENCE (3-DAY ASSESSMENT PERIOD): Occasionally incontinent (one episode of bowel incontinence) CODE: 1 SIGNATURE PANEL: The following modified sections: 1. [id number] Admission Performance, 1. [id number] Admission Performance, 1. [id number] Admission Performance, 1. [id number] Admission Performance, 1. [id number] Admission Performance, 1. [id number] Admission Performance, 1. [id number] Admission Performance, Code, H400. Bowel Continence (3- day assessment period), H350. Bladder Continence (3-day assessment period) were [electronically] sign ed by Neal Renee on FriMay 20 2019 11:18:36 GMT-0500 (Central Daylight Time)
[2019-05-20] MEDS: FLUOXETINE 20 MG CAP PO SCH (12:26)
[2019-05-20] MEDS: LOSARTAN POTASSIUM 50 MG TABLET PO SCH (12:26)
--- NOTE | 2019-05-20 12:51 | FAST ---
ENCOUNTER DATE AND TIME: 05/20/2019 08:00 (CDT) NAME JUSTINA COOPER DATE OF : 1945 DATE OF ADMISSION: 05/17/2019 13:26 (CDT) PHONE: AGE: 73 N# [id number] GENDER: Female ENCOUNTER PHYSICIAN: Dr. Jimenez Agrawal M.D. ADMISSION DIAGNOSIS: - Medically Complex Conditions 17 - Respiratory Disorders - Non-ventilator Dependent (17.52) Pneumonia . ROLL LEFT AND RIGHT: ROLL LEFT AND RIGHT - STEP 1: Does the patient complete the activity by him/herself with no assistance (physical, verbal/nonverbal cueing, setup/clean-up)? Yes. 1. [id number] ADMISSION PERFORMANCE: Independent CODE: 06 SIT TO LYING: SIT TO LYING - STEP 1: Does the patient complete the activity by him/herself with no assistance (physical, verbal/nonverbal cueing, setup/clean-up)? Yes. 1. [id number] ADMISSION PERFORMANCE: Independent CODE: 06 LYING TO SITTING: LYING TO SITTING ON SIDE OF BED - STEP 1: Does the patient complete the activity by him/herself with no assistance (physical, verbal/nonverbal cueing, setup/clean-up)? Yes. 1. [id number] ADMISSION PERFORMANCE: Independent CODE: 06 SIT TO STAND: SIT TO STAND - STEP 1: Does the patient complete the activity by him/herself with no assistance (physical, verbal/nonverbal cueing, setup/clean-up)? No. SIT TO STAND - STEP 2: Does the patient need only setup/clean-up assistance from one helper? Yes. 1. [id number] ADMISSION PERFORMANCE: Setup or clean-up assistance CODE: 05 TRANSFERS: BED, CHAIR: CHAIR/[id number] TRANSFER - STEP 1: Does the patient complete the activity by him/herself with no assistance (physical, verbal/nonverbal cueing, setup/clean-up)? No. CHAIR/[id number] TRANSFER - STEP 2: Does the patient need only setup/clean-up assistance from one helper? Yes. 1. [id number] ADMISSION PERFORMANCE: Setup or clean-up assistance CODE: 05 TRANSFER TOILET: TOILET TRANSFER - STEP 1: Does the patient complete the activity by him/herself with no assistance (physical, verbal/nonverbal cueing, setup/clean-up)? No. TOILET TRANSFER - STEP 2: Does the patient need only setup/clean-up assistance from one helper? Yes. 1. [id number] ADMISSION PERFORMANCE: Setup or clean-up assistance CODE: 05 TRANSFERS: CAR: Not attempted due to medical condition or safety concerns CODE: 88 WALK 10 FEET: WALK 10 FEET - STEP 1: Does the patient complete the activity by him/herself with no assistance (physical, verbal/nonverbal cueing, setup/clean-up)? No. WALK 10 FEET - STEP 2: Does the patient need only setup/clean-up assistance from one helper? Yes. 1. [id number] ADMISSION PERFORMANCE: Setup or clean-up assistance CODE: 05 WALK 50 FEET: WALK 50 FEET - STEP 1: Does the patient complete the activity by him/herself with no assistance (physical, verbal/nonverbal cueing, setup/clean-up)? No. WALK 50 FEET - STEP 2: Does the patient need only setup/clean-up assistance from one helper? Yes. 1. [id number] ADMISSION PERFORMANCE: Setup or clean-up assistance CODE: 05 WALK 150 FEET: WALK 150 FEET - STEP 1: Does the patient complete the activity by him/herself with no assistance (physical, verbal/nonverbal cueing, setup/clean-up)? No. WALK 150 FEET - STEP 2: Does the patient need only setup/clean-up assistance from one helper? Yes. 1. [id number] ADMISSION PERFORMANCE: Setup or clean-up assistance CODE: 05 WALK 10 FEET UNEVEN: WALKING 10 FEET ON UNEVEN SURFACES - STEP 1: Does the patient complete the activity by him/herself with no assistance (physical, verbal/nonverbal cueing, setup/clean-up)? No. WALKING 10 FEET ON UNEVEN SURFACES - STEP 2: Does the patient need only setup/clean-up assistance from one helper? Yes. 1. [id number] ADMISSION PERFORMANCE: Setup or clean-up assistance CODE: 1 STEP (CURB): 1 STEP CURB - STEP 1: Does the patient complete the activity by him/herself with no assistance (physical, verbal/nonverbal cueing, setup/clean-up)? No. 1 STEP CURB - STEP 2: Does the patient need only setup/clean-up assistance from one helper? Yes. 1. [id number] ADMISSION PERFORMANCE: Setup or clean-up assistance CODE: 05 4 STEPS: 4 STEPS - STEP 1: Does the patient complete the activity by him/herself with no assistance (physical, verbal/nonverbal cueing, setup/clean-up)? No. 4 STEPS - STEP 2: Does the patient need only setup/clean-up assistance from one helper? Yes. 1. [id number] ADMISSION PERFORMANCE: Setup or clean-up assistance CODE: 05 12 STEPS: 12 STEPS - STEP 1: Does the patient complete the activity by him/herself with no assistance (physical, verbal/nonverbal cueing, setup/clean-up)? No. 12 STEPS - STEP 2: Does the patient need only setup/clean-up assistance from one helper? Yes. 1. [id number] ADMISSION PERFORMANCE: Setup or clean-up assistance CODE: 05 PICKING UP OBJECT: Not attempted due to medical condition or safety concerns CODE: 88 DOES THE PATIENT USE A WHEELCHAIR/SCOOTER? Q1. DOES THE PATIENT USE A WHEELCHAIR/SCOOTER?: Yes CODE: 1 WHEEL 50 FEET WITH TWO TURNS: WHEEL 50 FEET WITH TWO TURNS - STEP 1: Does the patient complete the activity by him/herself with no assistance (physical, verbal/nonverbal cueing, setup/clean-up)? No. WHEEL 50 FEET WITH TWO TURNS - STEP 2: Does the patient need only setup/clean-up assistance from one helper? Yes. 1. [id number] ADMISSION PERFORMANCE: Setup or clean-up assistance CODE: 05 INDICATE THE TYPE OF WHEELCHAIR/SCOOTER USED: RR1. INDICATE THE TYPE OF WHEELCHAIR/SCOOTER USED.: Manual CODE: 1 WHEEL 150 FEET: WHEEL 150 FEET - STEP 1: Does the patient complete the activity by him/herself with no assistance (physical, verbal/nonverbal cueing, setup/clean-up)? No. WHEEL 150 FEET - STEP 2: Does the patient need only setup/clean-up assistance from one helper? Yes. 1. [id number] ADMISSION PERFORMANCE: Setup or clean-up assistance CODE: 05 INDICATE THE TYPE OF WHEELCHAIR/SCOOTER USED: SS1. INDICATE THE TYPE OF WHEELCHAIR/SCOOTER USED.: Manual CODE: 1 BLADDER AND BOWEL: CODE: EXPR CODE: EXPR SIGNATURE PANEL: The following modified sections: 1. [id number] Admission Performance, 1. [id number] Admission Performance, 1. [id number] Admission Performance, 1. [id number] Admission Performance, 1. [id number] Admission Performance, 1. [id number] Admission Performance, 1. [id number] Admission Performance, 1. [id number] Admission Performance , 1. [id number] Admission Performance, 1. [id number] Admission Performance, 1. [id number] Admission Performanc e, 1. [id number] Admission Performance, 1. [id number] Admission Performance, Q1. Does the patient use a whe elchair/scooter?, 1. [id number] Admission Performance, RR1. Indicate the type of wheelchair/scooter used ., 1. NL0535T Admission Performance, Code, SS1. Indicate the type of wheelchair/scooter used. were [e lectronically] signed by Janie Matos, MISSILE TRACKING TECHNICIAN on FriMay 20 2019 12:49:31 T-0500 ([facility])
--- NOTE | 2019-05-20 16:02 | R.PN ---
ENCOUNTER DATE AND TIME: 05/20/2019 15:56 (CDT) NAME JUSTINA COOPER DATE OF : 1945 DATE OF ADMISSION: 05/17/2019 13:26 (CDT) Pneumonia CHIEF COMPLAINT: Debility and pneumonia SUBJECTIVE: Pt denied any depression. Pt denied any Shortness of Breath. Propelled wheelchair 250' with standby assistance. Ambulated 750', with standby assistance using a rolling walker. Requires constant verbal encouragemen t. UP and down 10 steps with standby assistance. WBC 11.8, Hgb 9.5, prealbumin 18.5, glucose 180 to 286. Patient states that pain is under control. VITAL SIGNS Temperature: 98.6 F SBP/DBP: 123/61 Pulse: 71 Resp: 16 MEDICATION ALLERGIES: Carbamazapine Iodine ENVIRONMENTAL ALLERGIES: None Known - Substance Allergies None Known - Other Allergies None Known NURSING: - Shower allowing shower ACTIVITIES OOB only with supervision THERAPIES: - Dietary and Nutrition Adequate Nutrition. Nutritional Education. Nutritional Supplements. PHYSICAL EXAM - Gen Alert and awake Lying in bed No apparent distress Oriented to: person, time, and place - Skin No breakdown No abnormalities - Eyes No abnormalities - Neck No abnormalities No cervical adenopathy - CVS RRR - Chest No abnormalities - Resp Clear to auscultation - Abd Soft - GI Non distended Deferred - No abnormalities - Ext No significant edema - MSK 4/5 weakness in both lower extremities. - Neuro No focal deficits - Psych No abnormalities ASSESSMENT: Pt. is a 73 yo Right-handed white female.On 05/08/2019 she was admitted to [facility] with diagno sis Pneumonia .Her impairment category is Medically Complex Conditions 17 - Respiratory Di sorders - Non-ventilator Dependent (17.52).Pre-morbidly, Pt. was independent/mod-I in Transfers Contr ol, Locomotion, and Self-Care; and she had good Balance, Safety Awareness, Sphincter Control, and Com munication.Currently, she has deficits of Transfers Control, Locomotion, Safety Awareness, and Self-C are.Pt. is now referred to [facility] for acute in-patient rehabilitation in [facility] to maximize patient's functional independence in activities of daily living, strength, ROM, and mobility.- Rehab Goal Patient has realistic goal of being discharged at assistance level 6-Larisa to reside at Home with Fam vidhi/Relatives. MDM/PLAN: - Physical Therapy Gait dysfunction - to improve, our physical therapists will perform initial evaluation of pt's statu s upon admission and devise an individualized program for Gait Training, and Wheel Chair mobility Inability to transfer - to improve, our physical therapists will perform initial evaluation of pt's status upon admission and devise an individualized program for Bed mobility Need for home safety evaluation - to improve, our physical therapists will perform initial evaluatio n of pt's status upon admission and devise an individualized program for Home Evaluation Edema - to improve, our physical therapists will perform initial evaluation of pt's status upon admi ssion and devise an individualized program for Elevation Training, and Lymphedema Therapy Need in caregiver upon discharge - to improve, our physical therapists will perform initial evaluati on of pt's status upon admission and devise an individualized program for Caregiver Training New precaution - to improve, our physical therapists will perform initial evaluation of pt's status upon admission and devise an individualized program for Patient precaution education Weakness - to improve, our physical therapists will perform initial evaluation of pt's status upon a dmission and devise an individualized program for Aquatic Therapy, Neuromuscular Reeducation, and Str engthening Achieving independence - to improve, our physical therapists will perform initial evaluation of pt's status upon admission and devise an individualized program for Community Reintegration Activities - Occupational Therapy ADL deficits - to improve, our occupation therapists will perform initial evaluation of pt's status upon admission and devise an individualized program for Bathing, Bed mobility, Community Reintegratio n, Cooking, Dressing, Eating, Fine Motor Skills, Grooming, Homemaking, Kitchen Mobility, Laundry, Pat ient Education, Safety Awareness, Splinting - Positioning, Transfers(Toilet, Tub, Shower), and Wheel Chair Management Need for caregiver assisted living - to improve, our occupation therapists will perform initial evaluation of pt's status upon admission and devise an individualized program for Caregiver Training Weakness - to improve, our occupation therapists will perform initial evaluation of pt's status upon admission and devise an individualized program for Aquatic Therapy, Balance, Endurance, UE ROM, and UE strengthening - Other See attached MAR (Medication Administration Record) - Diet Type Continue Regular - Diet - Liquid Texture Continue Regular - Tube Feed Continue N/A - Diet - Solid Texture Continue Regular - Shower allowing shower FUNCTIONAL STATUS: UPDATED AT WEEKLY TEAM CONFERENCE - Walking Same score based on distance walked: 1(<=50ft) FUNCTIONAL STATUS: - Self-Care A. Eating Ind B. Grooming Ind C. Bathing sup D. Dressing - Upper sup E. Dressing - Lower Damon F. Toileting sup - Sphincter Control G. Bladder control Larisa H. Bowel control Larisa - Transfers Control I. Bed/Chair/Wheelchair sup J. Toilet sup K. Tub/Shower Damon - Locomotion L. Walk/Wheelchair (B) Damon M. Stairs maxA - Communication N. Comprehension (B) sup O. Expression (B) sup - Social Cognition P. Social Interaction Larisa Q. Problem Solving Damon R. Memory sup - Endurance Fair - Balance Poor - Safety Awareness Fair QI SCORES: - Self-Care A. Eating 05-Setup or clean-up assistance B. Oral hygiene 05-Setup or clean-up assistance C. Toileting hygiene 04-Supervision or touching assistance E. Shower/bathe self 10-Not attempted due to environmental limitations F. Upper body dressing 04-Supervision or touching assistance G. Lower body dressing 88-Not attempted due to medical condition or safety concerns H. Putting on/taking off footwear 88-Not attempted due to medical condition or safety concerns - Mobility A. Roll left and right 04-Supervision or touching assistance B. Sit to lying 04-Supervision or touching assistance C. Lying to sitting on side of bed 04-Supervision or touching assistance D. Sit to stand 04-Supervision or touching assistance E. Chair/dit-yc-htwna transfer 04-Supervision or touching assistance F. Toilet transfer 04-Supervision or touching assistance G. Car transfer 10-Not attempted due to environmental limitations I. Walk 10 feet 04-Supervision or touching assistance J. Walk 50 feet with two turns 88-Not attempted due to medical condition or safety concerns K. Walk 150 feet 88-Not attempted due to medical condition or safety concerns L. Walking 10 feet on uneven surfaces 88-Not attempted due to medical condition or safety concerns M. 1 step (curb) 88-Not attempted due to medical condition or safety concerns N. 4 steps 88-Not attempted due to medical condition or safety concerns O. 12 steps 88-Not attempted due to medical condition or safety concerns P. Picking up object 88-Not attempted due to medical condition or safety concerns - Bladder and Bowel Bladder continence 0-Always continent Bowel continence 0-Always continent - Endurance Poor - Balance Poor - Safety Awareness Poor CURRENT FUNC. DEFICITS: Self-Care, Mobility, Endurance, Balance, and Safety Awareness SIGNATURE PANEL: (CDT)
[2019-05-20] MEDS: CODEINE 30MG/APAP 300MG TAB PO PRN (17:43)
[2019-05-20] MEDS: ATORVASTATIN 20 MG TAB PO SCH (20:10)
[2019-05-21] MEDS: PANTOPRAZOLE 40MG TABLET PO SCH (06:58)
[2019-05-21] MEDS: INSULIN -REGULAR HUMAN 50 UNIT/0.5 ML ML SQ SCH ×4 (07:30→20:50)
[2019-05-21] MEDS: ARFORMOTEROL TARTRATE 15 MCG/2 ML VIAL.NEB NEB SCH ×2 (08:33→19:30)
[2019-05-21] MEDS: AMLODIPINE 5 MG TAB PO SCH (08:50)
[2019-05-21] MEDS: ENOXAPARIN 40 MG/0.4 ML SQ SCH (08:50)
[2019-05-21] MEDS: GLIPIZIDE S.A. 5 MG TAB PO SCH ×2 (08:51→17:51)
[2019-05-21] MEDS: ASPIRIN EC 81 MG TAB PO SCH (08:51)
[2019-05-21] MEDS: PREGABALIN 150 MG CAP PO SCH ×2 (08:51→19:48)
[2019-05-21] MEDS: AMOX/K CLAV 875 MG TAB PO SCH ×2 (08:52→19:48)
[2019-05-21] MEDS: LOSARTAN POTASSIUM 50 MG TABLET PO SCH (08:52)
[2019-05-21] MEDS: METFORMIN HCL 500 MG TAB PO SCH ×2 (08:52→17:52)
[2019-05-21] MEDS: CYANOCOBALAMIN 1,000 MCG TAB PO SCH (08:52)
[2019-05-21] MEDS: FERROUS SULFATE 325 MG TAB PO SCH (08:53)
[2019-05-21] MEDS: FLUOXETINE 20 MG CAP PO SCH (08:53)
[2019-05-21] MEDS: FE SULF/FA/VIT B COMP & C TAB PO SCH (08:53)
--- NOTE | 2019-05-21 10:14 | P.RH.PN ---
Estimated Length of Stay: 16 Expected Discharge Date: 05/27/19 Discharge Disposition Plan: Home Family Support: Yes Care Home Goal: Mobility, Transfers, Self Care Vital Signs: Last Vital Signs Temp 98.8 F 05/21/19 08:00 Pulse 67 05/21/19 08:50 Resp 16 05/21/19 08:00 BP 100/51 L 05/21/19 08:50 Pulse Ox 99 05/21/19 08:00 Laboratory: Laboratory Last Values WBC 11.8 K/uL (4.3-10.9) H 05/20/19 06:24 RBC 3.83 M/uL (3.86-4.86) L 05/20/19 06:24 Hgb 9.5 g/dL (12.0-15.0) L 05/20/19 06:24 Hct 30.8 % (36.0-45.0) L 05/20/19 06:24 MCV 80.2 fL (80-100) 05/20/19 06:24 MCH 24.8 pg (27.0-35.0) L 05/20/19 06:24 MCHC 30.9 g/dL (32.0-36.0) L 05/20/19 06:24 RDW 17.0 % (12.1-15.2) H 05/20/19 06:24 Plt Count 510 K/uL (152-406) H 05/20/19 06:24 MPV 8.3 fL (7.6-11.3) 05/20/19 06:24 Neutrophils % 56.4 % (41.7-73.7) 05/20/19 06:24 Lymphocytes % 27.7 % (15.3-44.8) 05/20/19 06:24 Monocytes % 6.6 % (3.3-12.3) 05/20/19 06:24 Eosinophils % 8.8 % (0-4.4) H 05/20/19 06:24 Basophils % 0.5 % (0-1.3) 05/20/19 06:24 Absolute Neutrophils 6.6 K/uL (1.8-8.0) 05/20/19 06:24 Absolute Lymphocytes 3.3 K/uL (0.7-4.9) 05/20/19 06:24 Absolute Monocytes 0.8 K/uL (0.1-1.3) 05/20/19 06:24 Absolute Eosinophils 1.0 K/uL (0-0.5) H 05/20/19 06:24 Absolute Basophils 0.1 K/uL (0-0.5) 05/20/19 06:24 Sodium 138 mmol/L (136-145) 05/20/19 06:24 Potassium 5.1 mmol/L (3.5-5.1) 05/20/19 06:24 Chloride 104 mmol/L (98-107) 05/20/19 06:24 Carbon Dioxide 26 mmol/L (21-32) 05/20/19 06:24 BUN 16 mg/dL (7-18) 05/20/19 06:24 Creatinine 0.67 mg/dL (0.55-1.3) 05/20/19 06:24 Estimated GFR 86 mL/min (=/>90) L 05/20/19 06:24 Glucose 181 mg/dL (74-106) H 05/20/19 06:24 POC Glucose 155 mg/dl (65-120) H 05/21/19 07:39 Calcium 9.0 mg/dL (8.5-10.1) 05/20/19 06:24 Magnesium 2.0 mg/dL (1.8-2.4) 05/20/19 06:24 Albumin 2.8 g/dL (3.4-5.0) L 05/20/19 06:24 Prealbumin 18.5 mg/dL (20-40) L 05/20/19 06:24 Urine Color Yellow 05/17/19 17:23 Urine Appearance Clear 05/17/19 17:23 Urine pH 6.0 (5.0-7.0) 05/17/19 17:23 Ur Specific [place] 1.010 (1.005-1.030) 05/17/19 17:23 Glucose (UA)(Auto) 1+ (NEG) H 05/17/19 17:23 Urine Ketones Negative (NEG) 05/17/19 17:23 Urine Blood Negative (NEG) 05/17/19 17:23 Urine Nitrite Negative (NEG) 05/17/19 17:23 Urine Bilirubin Negative (NEG) 05/17/19 17:23 Urine Urobilinogen 2.0 mg/dL (0.2-1.0) H 05/17/19 17:23 Ur Leukocyte Esterase 1+ (NEG) H 05/17/19 17:23 Urine RBC <5 /HPF (NONE SEEN) 05/17/19 17:23 Urine WBC 5-10 /HPF (<5) H 05/17/19 17:23 Ur Squamous Epith Cells 10-20 /HPF (NONE SEEN) H 05/17/19 17:23 Urine Bacteria <20 /HPF (<20) 05/17/19 17:23 Urine Culture Reflexed Reflexed 05/17/19 17:23 Urine Total Protein Negative (NEG) 05/17/19 17:23 Weight: 178 lb Wound Present: No Closed Surgical Incision Present: Yes Negative Pressure Wound Therapy Present: No Physician Update: Labs reviewed and are stable except elevated blood sugars. Will adjust meds. She is doing well with all therapy. Walking 250' and up and down 15 steps. She only has 3 teeth and needs mechanical chopped meats and foods. Speech Therapy Update: Moderate cognitive impairment affecting memory and problem solving. Swallow is WFL but patient is nearly edentulous. She was placed on a mechanical soft chopped diet with regular liquids for increased safety as she has admitted to swallowing foods only partially chewed Summary: Patient's care plan and longterm goals have been reviewed and revised as necessary. Please see the Rehabilitation Signature page for all necessary signatures.
--- NOTE | 2019-05-21 14:19 | RAD REPORT ---
EXAM DESCRIPTION: RAD - Chest Single View - 05/21/2019 2:12 pm CLINICAL HISTORY: Comparison from previous xray Chest pain. COMPARISON: Chest Single View dated 05/15/2019; Chest Single View dated 05/12/2019; Chest Single View da feliz 05/11/2019; Chest Single View dated 05/10/2019 FINDINGS: Portable technique limits examination quality. Moderate improvement is seen in left lung base aeration since comparative study. The lungs are emphys ematous. The heart is normal in size. No displaced fractures. IMPRESSION: Moderate improvement in left base pneumonia.
[2019-05-21] MEDS: ATORVASTATIN 20 MG TAB PO SCH (20:50)
--- NOTE | 2019-05-22 02:19 | FAST ---
SHIFT START DATE/TIME: 05/21/2019 19:00 (CDT) SHIFT END DATE/TIME: 05/22/2019 07:00 (CDT) NAME JUSTINA COOPER DATE OF : 1945 DATE OF ADMISSION: 05/17/2019 13:26 (CDT) PHONE: AGE: 73 N# [id number] GENDER: Female ENCOUNTER PHYSICIAN: Dr. Jimenez Agrawal M.D. ADMISSION DIAGNOSIS: - Medically Complex Conditions 17 - Respiratory Disorders - Non-ventilator Dependent (17.52) Pneumonia . EATING: Not assessed/no information CODE: - ORAL HYGIENE: Not assessed/no information CODE: - TOILETING HYGIENE: TOILETING HYGIENE - STEP 1: Does the patient complete the activity by him/herself with no assistance (physical, verbal/nonverbal cueing, setup/clean-up)? No. TOILETING HYGIENE - STEP 2: Does the patient need only setup/clean-up assistance from one helper? No. TOILETING HYGIENE - STEP 3: Does the patient need only verbal/nonverbal cueing or touching/steadying/contact guard assistance fro m one helper? Yes. 1. [id number] ADMISSION PERFORMANCE: Supervision or touching assistance CODE: 04 BATHING: Not assessed/no information CODE: - DRESSING - UPPER BODY: Not assessed/no information CODE: - DRESSING - LOWER BODY: Not assessed/no information CODE: - PUTTING ON/TAKING OFF FOOTWEAR: Not assessed/no information CODE: - ROLL LEFT AND RIGHT: ROLL LEFT AND RIGHT - STEP 1: Does the patient complete the activity by him/herself with no assistance (physical, verbal/nonverbal cueing, setup/clean-up)? No. ROLL LEFT AND RIGHT - STEP 2: Does the patient need only setup/clean-up assistance from one helper? No. ROLL LEFT AND RIGHT - STEP 3: Does the patient need only verbal/nonverbal cueing or touching/steadying/contact guard assistance fro m one helper? Yes. 1. [id number] ADMISSION PERFORMANCE: Supervision or touching assistance CODE: 04 SIT TO LYING: SIT TO LYING - STEP 1: Does the patient complete the activity by him/herself with no assistance (physical, verbal/nonverbal cueing, setup/clean-up)? No. SIT TO LYING - STEP 2: Does the patient need only setup/clean-up assistance from one helper? No. SIT TO LYING - STEP 3: Does the patient need only verbal/nonverbal cueing or touching/steadying/contact guard assistance fro m one helper? Yes. 1. [id number] ADMISSION PERFORMANCE: Supervision or touching assistance CODE: 04 LYING TO SITTING: LYING TO SITTING ON SIDE OF BED - STEP 1: Does the patient complete the activity by him/herself with no assistance (physical, verbal/nonverbal cueing, setup/clean-up)? No. LYING TO SITTING ON SIDE OF BED - STEP 2: Does the patient need only setup/clean-up assistance from one helper? No. LYING TO SITTING ON SIDE OF BED - STEP 3: Does the patient need only verbal/nonverbal cueing or touching/steadying/contact guard assistance fro m one helper? Yes. 1. [id number] ADMISSION PERFORMANCE: Supervision or touching assistance CODE: 04 SIT TO STAND: SIT TO STAND - STEP 1: Does the patient complete the activity by him/herself with no assistance (physical, verbal/nonverbal cueing, setup/clean-up)? No. SIT TO STAND - STEP 2: Does the patient need only setup/clean-up assistance from one helper? No. SIT TO STAND - STEP 3: Does the patient need only verbal/nonverbal cueing or touching/steadying/contact guard assistance fro m one helper? Yes. 1. [id number] ADMISSION PERFORMANCE: Supervision or touching assistance CODE: 04 TRANSFERS: BED, CHAIR: CHAIR/[id number] TRANSFER - STEP 1: Does the patient complete the activity by him/herself with no assistance (physical, verbal/nonverbal cueing, setup/clean-up)? No. CHAIR/[id number] TRANSFER - STEP 2: Does the patient need only setup/clean-up assistance from one helper? No. CHAIR/[id number] TRANSFER - STEP 3: Does the patient need only verbal/nonverbal cueing or touching/steadying/contact guard assistance fro m one helper? Yes. 1. [id number] ADMISSION PERFORMANCE: Supervision or touching assistance CODE: 04 TRANSFER TOILET: TOILET TRANSFER - STEP 1: Does the patient complete the activity by him/herself with no assistance (physical, verbal/nonverbal cueing, setup/clean-up)? No. TOILET TRANSFER - STEP 2: Does the patient need only setup/clean-up assistance from one helper? No. TOILET TRANSFER - STEP 3: Does the patient need only verbal/nonverbal cueing or touching/steadying/contact guard assistance fro m one helper? Yes. 1. [id number] ADMISSION PERFORMANCE: Supervision or touching assistance CODE: 04 TRANSFERS: CAR: Not assessed/no information CODE: - WALK 10 FEET: Not assessed/no information CODE: - 1 STEP (CURB): Not assessed/no information CODE: - PICKING UP OBJECT: Not assessed/no information CODE: - DOES THE PATIENT USE A WHEELCHAIR/SCOOTER? CODE: EXPR WHEEL 50 FEET WITH TWO TURNS: Not assessed/no information CODE: - INDICATE THE TYPE OF WHEELCHAIR/SCOOTER USED: CODE: EXPR WHEEL 150 FEET: Not assessed/no information CODE: - INDICATE THE TYPE OF WHEELCHAIR/SCOOTER USED: CODE: EXPR BLADDER AND BOWEL: H350. BLADDER CONTINENCE (3-DAY ASSESSMENT PERIOD): Always continent (no documented incontinence) CODE: 0 H400. BOWEL CONTINENCE (3-DAY ASSESSMENT PERIOD): Always continent CODE: 0
[2019-05-22 05:34] VITALS: BMI 33.0
[2019-05-22] MEDS: ENOXAPARIN 40 MG/0.4 ML SQ SCH (07:08)
[2019-05-22] MEDS: PANTOPRAZOLE 40MG TABLET PO SCH (07:09)
[2019-05-22] MEDS: ARFORMOTEROL TARTRATE 15 MCG/2 ML VIAL.NEB NEB SCH ×2 (07:50→20:15)
[2019-05-22] MEDS: INSULIN -REGULAR HUMAN 50 UNIT/0.5 ML ML SQ SCH ×4 (08:11→20:39)
[2019-05-22] MEDS: CYANOCOBALAMIN 1,000 MCG TAB PO SCH (08:12)
[2019-05-22] MEDS: FLUOXETINE 20 MG CAP PO SCH (08:12)
[2019-05-22] MEDS: ASPIRIN EC 81 MG TAB PO SCH (08:12)
[2019-05-22] MEDS: FERROUS SULFATE 325 MG TAB PO SCH (08:13)
[2019-05-22] MEDS: AMOX/K CLAV 875 MG TAB PO SCH ×2 (08:13→20:38)
[2019-05-22] MEDS: AMLODIPINE 5 MG TAB PO SCH (08:14)
[2019-05-22] MEDS: FE SULF/FA/VIT B COMP & C TAB PO SCH (08:18)
[2019-05-22] MEDS: METFORMIN HCL 500 MG TAB PO SCH ×3 (08:18→17:45)
[2019-05-22] MEDS: PREGABALIN 150 MG CAP PO SCH ×2 (08:18→20:39)
[2019-05-22] MEDS: GLIPIZIDE S.A. 5 MG TAB PO SCH ×2 (08:18→17:45)
--- NOTE | 2019-05-22 08:18 | FAST ---
ENCOUNTER DATE AND TIME: 05/22/2019 08:00 (CDT) NAME JUSTINA COOPER DATE OF : 1945 DATE OF ADMISSION: 05/17/2019 13:26 (CDT) PHONE: AGE: 73 N# [id number] GENDER: Female ENCOUNTER PHYSICIAN: Dr. Jimenez Agrawal M.D. ADMISSION DIAGNOSIS: - Medically Complex Conditions 17 - Respiratory Disorders - Non-ventilator Dependent (17.52) Pneumonia . EATING: Not assessed/no information CODE: - ORAL HYGIENE: ORAL HYGIENE - STEP 1: Does the patient complete the activity by him/herself with no assistance (physical, verbal/nonverbal cueing, setup/clean-up)? Yes. 1. [id number] ADMISSION PERFORMANCE: Independent CODE: 06 TOILETING HYGIENE: Not assessed/no information CODE: - BATHING: SHOWER/BATHE SELF - STEP 1: Does the patient complete the activity by him/herself with no assistance (physical, verbal/nonverbal cueing, setup/clean-up)? No. SHOWER/BATHE SELF - STEP 2: Does the patient need only setup/clean-up assistance from one helper? No. SHOWER/BATHE SELF - STEP 3: Does the patient need only verbal/nonverbal cueing or touching/steadying/contact guard assistance fro m one helper? Yes. 1. [id number] ADMISSION PERFORMANCE: Supervision or touching assistance CODE: 04 DRESSING - UPPER BODY: DRESSING - UPPER BODY - STEP 1: Does the patient complete the activity by him/herself with no assistance (physical, verbal/nonverbal cueing, setup/clean-up)? No. DRESSING - UPPER BODY - STEP 2: Does the patient need only setup/clean-up assistance from one helper? Yes. 1. [id number] ADMISSION PERFORMANCE: Setup or clean-up assistance CODE: 05 DRESSING - LOWER BODY: DRESSING - LOWER BODY - STEP 1: Does the patient complete the activity by him/herself with no assistance (physical, verbal/nonverbal cueing, setup/clean-up)? No. DRESSING - LOWER BODY - STEP 2: Does the patient need only setup/clean-up assistance from one helper? No. DRESSING - LOWER BODY - STEP 3: Does the patient need only verbal/nonverbal cueing or touching/steadying/contact guard assistance fro m one helper? Yes. 1. [id number] ADMISSION PERFORMANCE: Supervision or touching assistance CODE: 04 PUTTING ON/TAKING OFF FOOTWEAR: FOOTWEAR - STEP 1: Does the patient complete the activity by him/herself with no assistance (physical, verbal/nonverbal cueing, setup/clean-up)? No. FOOTWEAR - STEP 2: Does the patient need only setup/clean-up assistance from one helper? No. FOOTWEAR - STEP 3: Does the patient need only verbal/nonverbal cueing or touching/steadying/contact guard assistance fro m one helper? Yes. 1. [id number] ADMISSION PERFORMANCE: Supervision or touching assistance CODE: 04 DOES THE PATIENT USE A WHEELCHAIR/SCOOTER? CODE: EXPR INDICATE THE TYPE OF WHEELCHAIR/SCOOTER USED: CODE: EXPR INDICATE THE TYPE OF WHEELCHAIR/SCOOTER USED: CODE: EXPR BLADDER AND BOWEL: CODE: EXPR CODE: EXPR SIGNATURE PANEL: The following modified sections: 1. [id number] Admission Performance, 1. [id number] Admission Performance, 1. [id number] Admission Performance, 1. [id number] Admission Performance, 1. [id number] Admission Performance were [electronically] signed by OMARI Larsen on Sat May 22 2019 08:17:49 GMT-0500 (Central Daylight Time)
[2019-05-22] MEDS: LOSARTAN POTASSIUM 50 MG TABLET PO SCH (13:03)
[2019-05-22] MEDS: ATORVASTATIN 20 MG TAB PO SCH (20:38)
[2019-05-23] MEDS: PANTOPRAZOLE 40MG TABLET PO SCH (06:13)
[2019-05-23] MEDS: ENOXAPARIN 40 MG/0.4 ML SQ SCH (06:55)
[2019-05-23] MEDS: INSULIN -REGULAR HUMAN 50 UNIT/0.5 ML ML SQ SCH ×4 (07:30→20:21)
[2019-05-23] MEDS: GLIPIZIDE S.A. 5 MG TAB PO SCH ×2 (08:32→17:20)
[2019-05-23] MEDS: LOSARTAN POTASSIUM 50 MG TABLET PO SCH (08:33)
[2019-05-23] MEDS: PREGABALIN 150 MG CAP PO SCH ×2 (08:33→20:21)
[2019-05-23] MEDS: FLUOXETINE 20 MG CAP PO SCH (08:33)
[2019-05-23] MEDS: AMLODIPINE 5 MG TAB PO SCH (08:33)
[2019-05-23] MEDS: METFORMIN HCL 500 MG TAB PO SCH ×2 (08:34→17:19)
[2019-05-23] MEDS: CYANOCOBALAMIN 1,000 MCG TAB PO SCH (08:34)
[2019-05-23] MEDS: FERROUS SULFATE 325 MG TAB PO SCH (08:34)
[2019-05-23] MEDS: AMOX/K CLAV 875 MG TAB PO SCH ×2 (08:34→20:21)
[2019-05-23] MEDS: ASPIRIN EC 81 MG TAB PO SCH (08:34)
[2019-05-23] MEDS: FE SULF/FA/VIT B COMP & C TAB PO SCH (08:35)
[2019-05-23] MEDS: ARFORMOTEROL TARTRATE 15 MCG/2 ML VIAL.NEB NEB SCH ×2 (09:17→20:00)
--- NOTE | 2019-05-23 14:16 | FAST ---
SHIFT START DATE/TIME: 05/23/2019 07:00 (CDT) SHIFT END DATE/TIME: 05/23/2019 19:00 (CDT) NAME JUSTINA COOPER DATE OF : 1945 DATE OF ADMISSION: 05/17/2019 13:26 (CDT) PHONE: AGE: 73 N# [id number] GENDER: Female ENCOUNTER PHYSICIAN: Dr. Jimenez Agrawal M.D. ADMISSION DIAGNOSIS: - Medically Complex Conditions 17 - Respiratory Disorders - Non-ventilator Dependent (17.52) Pneumonia . EATING: EATING - STEP 1: Does the patient complete the activity by him/herself with no assistance (physical, verbal/nonverbal cueing, setup/clean-up)? No. EATING - STEP 2: Does the patient need only setup/clean-up assistance from one helper? Yes. 1. [id number] ADMISSION PERFORMANCE: Setup or clean-up assistance CODE: 05 ORAL HYGIENE: ORAL HYGIENE - STEP 1: Does the patient complete the activity by him/herself with no assistance (physical, verbal/nonverbal cueing, setup/clean-up)? Yes. 1. [id number] ADMISSION PERFORMANCE: Independent CODE: 06 TOILETING HYGIENE: TOILETING HYGIENE - STEP 1: Does the patient complete the activity by him/herself with no assistance (physical, verbal/nonverbal cueing, setup/clean-up)? No. TOILETING HYGIENE - STEP 2: Does the patient need only setup/clean-up assistance from one helper? Yes. 1. [id number] ADMISSION PERFORMANCE: Setup or clean-up assistance CODE: 05 BATHING: Not assessed/no information CODE: - DRESSING - UPPER BODY: Not assessed/no information CODE: - [id number] - COMMENTS: No street clothes PUTTING ON/TAKING OFF FOOTWEAR: Not assessed/no information CODE: - [id number] - COMMENTS: No shoes ROLL LEFT AND RIGHT: ROLL LEFT AND RIGHT - STEP 1: Does the patient complete the activity by him/herself with no assistance (physical, verbal/nonverbal cueing, setup/clean-up)? No. ROLL LEFT AND RIGHT - STEP 2: Does the patient need only setup/clean-up assistance from one helper? No. ROLL LEFT AND RIGHT - STEP 3: Does the patient need only verbal/nonverbal cueing or touching/steadying/contact guard assistance fro m one helper? Yes. 1. [id number] ADMISSION PERFORMANCE: Supervision or touching assistance CODE: 04 SIT TO LYING: SIT TO LYING - STEP 1: Does the patient complete the activity by him/herself with no assistance (physical, verbal/nonverbal cueing, setup/clean-up)? No. SIT TO LYING - STEP 2: Does the patient need only setup/clean-up assistance from one helper? No. SIT TO LYING - STEP 3: Does the patient need only verbal/nonverbal cueing or touching/steadying/contact guard assistance fro m one helper? Yes. 1. [id number] ADMISSION PERFORMANCE: Supervision or touching assistance CODE: 04 LYING TO SITTING: LYING TO SITTING ON SIDE OF BED - STEP 1: Does the patient complete the activity by him/herself with no assistance (physical, verbal/nonverbal cueing, setup/clean-up)? No. LYING TO SITTING ON SIDE OF BED - STEP 2: Does the patient need only setup/clean-up assistance from one helper? No. LYING TO SITTING ON SIDE OF BED - STEP 3: Does the patient need only verbal/nonverbal cueing or touching/steadying/contact guard assistance fro m one helper? Yes. 1. [id number] ADMISSION PERFORMANCE: Supervision or touching assistance CODE: 04 SIT TO STAND: SIT TO STAND - STEP 1: Does the patient complete the activity by him/herself with no assistance (physical, verbal/nonverbal cueing, setup/clean-up)? No. SIT TO STAND - STEP 2: Does the patient need only setup/clean-up assistance from one helper? No. SIT TO STAND - STEP 3: Does the patient need only verbal/nonverbal cueing or touching/steadying/contact guard assistance fro m one helper? Yes. 1. [id number] ADMISSION PERFORMANCE: Supervision or touching assistance CODE: 04 TRANSFERS: BED, CHAIR: CHAIR/[id number] TRANSFER - STEP 1: Does the patient complete the activity by him/herself with no assistance (physical, verbal/nonverbal cueing, setup/clean-up)? No. CHAIR/[id number] TRANSFER - STEP 2: Does the patient need only setup/clean-up assistance from one helper? No. CHAIR/[id number] TRANSFER - STEP 3: Does the patient need only verbal/nonverbal cueing or touching/steadying/contact guard assistance fro m one helper? Yes. 1. [id number] ADMISSION PERFORMANCE: Supervision or touching assistance CODE: 04 TRANSFER TOILET: TOILET TRANSFER - STEP 1: Does the patient complete the activity by him/herself with no assistance (physical, verbal/nonverbal cueing, setup/clean-up)? No. TOILET TRANSFER - STEP 2: Does the patient need only setup/clean-up assistance from one helper? Yes. 1. [id number] ADMISSION PERFORMANCE: Setup or clean-up assistance CODE: 05 TRANSFERS: CAR: Not assessed/no information CODE: - WALK 10 FEET: Not assessed/no information CODE: - 1 STEP (CURB): Not assessed/no information CODE: - PICKING UP OBJECT: Not assessed/no information CODE: - DOES THE PATIENT USE A WHEELCHAIR/SCOOTER? Q1. DOES THE PATIENT USE A WHEELCHAIR/SCOOTER?: Yes CODE: 1 WHEEL 50 FEET WITH TWO TURNS: WHEEL 50 FEET WITH TWO TURNS - STEP 1: Does the patient complete the activity by him/herself with no assistance (physical, verbal/nonverbal cueing, setup/clean-up)? No. WHEEL 50 FEET WITH TWO TURNS - STEP 2: Does the patient need only setup/clean-up assistance from one helper? No. WHEEL 50 FEET WITH TWO TURNS - STEP 3: Does the patient need only verbal/nonverbal cueing or touching/steadying/contact guard assistance fro m one helper? Yes. 1. [id number] ADMISSION PERFORMANCE: Supervision or touching assistance CODE: 04 INDICATE THE TYPE OF WHEELCHAIR/SCOOTER USED: RR1. INDICATE THE TYPE OF WHEELCHAIR/SCOOTER USED.: Manual CODE: 1 WHEEL 150 FEET: WHEEL 150 FEET - STEP 1: Does the patient complete the activity by him/herself with no assistance (physical, verbal/nonverbal cueing, setup/clean-up)? No. WHEEL 150 FEET - STEP 2: Does the patient need only setup/clean-up assistance from one helper? No. WHEEL 150 FEET - STEP 3: Does the patient need only verbal/nonverbal cueing or touching/steadying/contact guard assistance fro m one helper? Yes. 1. [id number] ADMISSION PERFORMANCE: Supervision or touching assistance CODE: 04 INDICATE THE TYPE OF WHEELCHAIR/SCOOTER USED: SS1. INDICATE THE TYPE OF WHEELCHAIR/SCOOTER USED.: Manual CODE: 1 BLADDER AND BOWEL: H350. BLADDER CONTINENCE (3-DAY ASSESSMENT PERIOD): Always continent (no documented incontinence) CODE: 0 H400. BOWEL CONTINENCE (3-DAY ASSESSMENT PERIOD): Always continent CODE: 0 SIGNATURE PANEL: The following modified sections: 1. [id number] Admission Performance, 1. [id number] Admission Performance, 1. [id number] Admission Performance, 1. AX0580E Admission Performance, RH0236M - Comments:, [id number] - Co mments:, [id number] - Comments:, 1. [id number] Admission Performance, 1. [id number] Admission Performance, 1. OM3622W Admission Performance, 1. LD3067E Admission Performance, 1. PS6453E Admission Performance, 1. DZ3639M Admission Performance, Q1. Does the patient use a wheelchair/scooter?, 1. ZD5418P Admission Performance, RR1. Indicate the type of wheelchair/scooter used., 1. WI5220C Admission Performance, Co de, SS1. Indicate the type of wheelchair/scooter used., H350. Bladder Continence (3-day assessment pe riod), H400. Bowel Continence (3-day assessment period) were [electronically] signed by Roxanne Thorpe C.N.A. on FriMay 23 2019 14:15:06 GMT-0500 (Central Daylight Time)
[2019-05-23] MEDS: ATORVASTATIN 20 MG TAB PO SCH (20:21)
[2019-05-24] MEDS: PANTOPRAZOLE 40MG TABLET PO SCH (06:32)
[2019-05-24] MEDS: ENOXAPARIN 40 MG/0.4 ML SQ SCH (06:32)
[2019-05-24] MEDS: INSULIN -REGULAR HUMAN 50 UNIT/0.5 ML ML SQ SCH ×4 (07:30→22:08)
[2019-05-24] MEDS: LOSARTAN POTASSIUM 50 MG TABLET PO SCH (08:00)
[2019-05-24] MEDS: AMLODIPINE 5 MG TAB PO SCH (08:00)
[2019-05-24] MEDS: IPRATROPIUM BROM 0.5MG/2.5ML NEB PRN (08:00)
[2019-05-24] MEDS: ARFORMOTEROL TARTRATE 15 MCG/2 ML VIAL.NEB NEB SCH ×2 (08:00→20:25)
[2019-05-24] MEDS: CYANOCOBALAMIN 1,000 MCG TAB PO SCH (08:19)
[2019-05-24] MEDS: FERROUS SULFATE 325 MG TAB PO SCH (08:19)
[2019-05-24] MEDS: AMOX/K CLAV 875 MG TAB PO SCH ×2 (08:19→22:07)
[2019-05-24] MEDS: FLUOXETINE 20 MG CAP PO SCH (08:20)
[2019-05-24] MEDS: ASPIRIN EC 81 MG TAB PO SCH (08:20)
[2019-05-24] MEDS: METFORMIN HCL 500 MG TAB PO SCH ×2 (08:20→16:50)
[2019-05-24] MEDS: PREGABALIN 150 MG CAP PO SCH ×2 (08:21→22:07)
[2019-05-24] MEDS: FE SULF/FA/VIT B COMP & C TAB PO SCH (08:21)
--- NOTE | 2019-05-24 08:39 | RAD REPORT ---
EXAM DESCRIPTION: Bhavik Single View05/24/2019 6:26 am CLINICAL HISTORY: Chest pain COMPARISON: May 21 FINDINGS: Mild left basilar opacity has partially resolved. No other change IMPRESSION: Partial resolution a mild left basilar pneumonia
[2019-05-24] MEDS: GLIPIZIDE S.A. 5 MG TAB PO SCH ×2 (09:20→16:51)
[2019-05-24] MEDS ORDERED: ONDANSETRON 4 MG (ODT) TAB PO PRN (11:41)
--- NOTE | 2019-05-24 12:17 | FAST ---
ENCOUNTER DATE AND TIME: 05/24/2019 08:00 (CDT) NAME JUSTINA COOPER DATE OF : 1945 DATE OF ADMISSION: 05/17/2019 13:26 (CDT) PHONE: AGE: 73 N# [id number] GENDER: Female ENCOUNTER PHYSICIAN: Dr. Jimenez Agrawal M.D. ADMISSION DIAGNOSIS: - Medically Complex Conditions 17 - Respiratory Disorders - Non-ventilator Dependent (17.52) Pneumonia . EATING: Not assessed/no information CODE: - ORAL HYGIENE: ORAL HYGIENE - STEP 1: Does the patient complete the activity by him/herself with no assistance (physical, verbal/nonverbal cueing, setup/clean-up)? Yes. 1. [id number] ADMISSION PERFORMANCE: Independent CODE: 06 TOILETING HYGIENE: Not assessed/no information CODE: - BATHING: SHOWER/BATHE SELF - STEP 1: Does the patient complete the activity by him/herself with no assistance (physical, verbal/nonverbal cueing, setup/clean-up)? No. SHOWER/BATHE SELF - STEP 2: Does the patient need only setup/clean-up assistance from one helper? No. SHOWER/BATHE SELF - STEP 3: Does the patient need only verbal/nonverbal cueing or touching/steadying/contact guard assistance fro m one helper? Yes. 1. [id number] ADMISSION PERFORMANCE: Supervision or touching assistance CODE: 04 DRESSING - UPPER BODY: Not assessed/no information CODE: - DRESSING - LOWER BODY: DRESSING - LOWER BODY - STEP 1: Does the patient complete the activity by him/herself with no assistance (physical, verbal/nonverbal cueing, setup/clean-up)? No. DRESSING - LOWER BODY - STEP 2: Does the patient need only setup/clean-up assistance from one helper? No. DRESSING - LOWER BODY - STEP 3: Does the patient need only verbal/nonverbal cueing or touching/steadying/contact guard assistance fro m one helper? Yes. 1. [id number] ADMISSION PERFORMANCE: Supervision or touching assistance CODE: 04 PUTTING ON/TAKING OFF FOOTWEAR: FOOTWEAR - STEP 1: Does the patient complete the activity by him/herself with no assistance (physical, verbal/nonverbal cueing, setup/clean-up)? No. FOOTWEAR - STEP 2: Does the patient need only setup/clean-up assistance from one helper? No. FOOTWEAR - STEP 3: Does the patient need only verbal/nonverbal cueing or touching/steadying/contact guard assistance fro m one helper? Yes. 1. [id number] ADMISSION PERFORMANCE: Supervision or touching assistance CODE: 04 DOES THE PATIENT USE A WHEELCHAIR/SCOOTER? CODE: EXPR INDICATE THE TYPE OF WHEELCHAIR/SCOOTER USED: CODE: EXPR INDICATE THE TYPE OF WHEELCHAIR/SCOOTER USED: CODE: EXPR BLADDER AND BOWEL: CODE: EXPR CODE: EXPR SIGNATURE PANEL: The following modified sections: 1. [id number] Admission Performance, 1. DM7281p Admission Performance, 1. JN1799m Admission Performance, 1. QA7585y Admission Performance were [electronically] signed by OMARI Mckeon on FriMay 24 2019 12:16:00 T-0500 (Central Daylight Time)
--- NOTE | 2019-05-24 18:41 | R.PN ---
ENCOUNTER DATE AND TIME: 05/24/2019 18:37 (CDT) NAME JUSTINA COOPER DATE OF : 1945 DATE OF ADMISSION: 05/17/2019 13:26 (CDT) Pneumonia CHIEF COMPLAINT: Debility and pneumonia SUBJECTIVE: Pt denied any depression. Pt denied any Shortness of Breath. Propelled wheelchair 250' with standby assistance. Ambulated 1000', with standby assistance using a rolling walker. Requires constant verbal encourageme nt. UP and down 15 steps with standby assistance. WBC 11.8, Hgb 9.5, prealbumin 18.5, glucose 156 to 227. Patient states that pain is under control. VITAL SIGNS Temperature: 97.8 F SBP/DBP: 105/54 Pulse: 78 Resp: 16 MEDICATION ALLERGIES: Carbamazapine Iodine ENVIRONMENTAL ALLERGIES: None Known - Substance Allergies None Known - Other Allergies None Known NURSING: - Shower allowing shower ACTIVITIES OOB only with supervision THERAPIES: - Dietary and Nutrition Adequate Nutrition. Nutritional Education. Nutritional Supplements. PHYSICAL EXAM - Gen Alert and awake Lying in bed No apparent distress Oriented to: person, time, and place - Skin No breakdown No abnormalities - Eyes No abnormalities - Neck No abnormalities No cervical adenopathy - CVS RRR - Chest No abnormalities - Resp Clear to auscultation - Abd Soft - GI Non distended Deferred - No abnormalities - Ext No significant edema - MSK 4/5 weakness in both lower extremities. - Neuro No focal deficits - Psych No abnormalities ASSESSMENT: Pt. is a 73 yo Right-handed white female.On 05/08/2019 she was admitted to [facility] with diagno sis Pneumonia .Her impairment category is Medically Complex Conditions 17 - Respiratory Di sorders - Non-ventilator Dependent (17.52).Pre-morbidly, Pt. was independent/mod-I in Transfers Contr ol, Locomotion, and Self-Care; and she had good Balance, Safety Awareness, Sphincter Control, and Com munication.Currently, she has deficits of Transfers Control, Locomotion, Safety Awareness, and Self-C are.Pt. is now referred to [facility] for acute [facility]-patient rehabilitation [facility] to maximize patient's functional independence in activities of daily living, strength, ROM, and mobility.- Rehab Goal Patient has realistic goal of being discharged at assistance level 6-Larisa to reside at Home with Fam vidhi/Relatives. MDM/PLAN: - Physical Therapy Gait dysfunction - to improve, our physical therapists will perform initial evaluation of pt's statu s upon admission and devise an individualized program for Gait Training, and Wheel Chair mobility Inability to transfer - to improve, our physical therapists will perform initial evaluation of pt's status upon admission and devise an individualized program for Bed mobility Need for home safety evaluation - to improve, our physical therapists will perform initial evaluatio n of pt's status upon admission and devise an individualized program for Home Evaluation Edema - to improve, our physical therapists will perform initial evaluation of pt's status upon admi ssion and devise an individualized program for Elevation Training, and Lymphedema Therapy Need in caregiver upon discharge - to improve, our physical therapists will perform initial evaluati on of pt's status upon admission and devise an individualized program for Caregiver Training New precaution - to improve, our physical therapists will perform initial evaluation of pt's status upon admission and devise an individualized program for Patient precaution education Weakness - to improve, our physical therapists will perform initial evaluation of pt's status upon a dmission and devise an individualized program for Aquatic Therapy, Neuromuscular Reeducation, and Str engthening Achieving independence - to improve, our physical therapists will perform initial evaluation of pt's status upon admission and devise an individualized program for Community Reintegration Activities - Occupational Therapy ADL deficits - to improve, our occupation therapists will perform initial evaluation of pt's status upon admission and devise an individualized program for Bathing, Bed mobility, Community Reintegratio n, Cooking, Dressing, Eating, Fine Motor Skills, Grooming, Homemaking, Kitchen Mobility, Laundry, Pat ient Education, Safety Awareness, Splinting - Positioning, Transfers(Toilet, Tub, Shower), and Wheel Chair Management Need for residential caregiver - to improve, our occupation therapists will perform initial evaluation of pt's status upon admission and devise an individualized program for Caregiver Training Weakness - to improve, our occupation therapists will perform initial evaluation of pt's status upon admission and devise an individualized program for Aquatic Therapy, Balance, Endurance, UE ROM, and UE strengthening - Other See attached MAR (Medication Administration Record) - Diet Type Continue Regular - Diet - Liquid Texture Continue Regular - Tube Feed Continue N/A - Diet - Solid Texture Continue Regular - Shower allowing shower FUNCTIONAL STATUS: UPDATED AT WEEKLY TEAM CONFERENCE - Walking Same score based on distance walked: 1(<=50ft) FUNCTIONAL STATUS: - Self-Care A. Eating Ind B. Grooming Ind C. Bathing sup D. Dressing - Upper sup E. Dressing - Lower Damon F. Toileting sup - Sphincter Control G. Bladder control Larisa H. Bowel control Larisa - Transfers Control I. Bed/Chair/Wheelchair sup J. Toilet sup K. Tub/Shower Damon - Locomotion L. Walk/Wheelchair (B) Damon M. Stairs maxA - Communication N. Comprehension (B) sup O. Expression (B) sup - Social Cognition P. Social Interaction Larisa Q. Problem Solving Damon R. Memory sup - Endurance Fair - Balance Poor - Safety Awareness Fair QI SCORES: - Self-Care A. Eating 05-Setup or clean-up assistance B. Oral hygiene 05-Setup or clean-up assistance C. Toileting hygiene 04-Supervision or touching assistance E. Shower/bathe self 10-Not attempted due to environmental limitations F. Upper body dressing 04-Supervision or touching assistance G. Lower body dressing 88-Not attempted due to medical condition or safety concerns H. Putting on/taking off footwear 88-Not attempted due to medical condition or safety concerns - Mobility A. Roll left and right 04-Supervision or touching assistance B. Sit to lying 04-Supervision or touching assistance C. Lying to sitting on side of bed 04-Supervision or touching assistance D. Sit to stand 04-Supervision or touching assistance E. Chair/nrx-de-ktmik transfer 04-Supervision or touching assistance F. Toilet transfer 04-Supervision or touching assistance G. Car transfer 10-Not attempted due to environmental limitations I. Walk 10 feet 04-Supervision or touching assistance J. Walk 50 feet with two turns 88-Not attempted due to medical condition or safety concerns K. Walk 150 feet 88-Not attempted due to medical condition or safety concerns L. Walking 10 feet on uneven surfaces 88-Not attempted due to medical condition or safety concerns M. 1 step (curb) 88-Not attempted due to medical condition or safety concerns N. 4 steps 88-Not attempted due to medical condition or safety concerns O. 12 steps 88-Not attempted due to medical condition or safety concerns P. Picking up object 88-Not attempted due to medical condition or safety concerns - Bladder and Bowel Bladder continence 0-Always continent Bowel continence 0-Always continent - Endurance Poor - Balance Poor - Safety Awareness Poor CURRENT FUNC. DEFICITS: Self-Care, Mobility, Endurance, Balance, and Safety Awareness SIGNATURE PANEL: (CDT)
[2019-05-24] MEDS: ATORVASTATIN 20 MG TAB PO SCH (22:07)
[2019-05-25 06:01] LABS: Basophils % 1.9 % (0-1.3); Hematocrit 30.6 % (36.0-45.0); Lymphocytes % 32.5 % (15.3-44.8); MPV 8.5 fL (7.6-11.3); RBC Red Blood Cell Count 3.78 M/uL (3.86-4.86)
[2019-05-25 06:16] LABS: ALT/SGPT 34 U/L (12-78); AST/SGOT 17 U/L (15-37); Albumin 2.7 g/dL (3.4-5.0); Alkaline Phosphatase 85 U/L (45-117); BUN Blood Urea Nitrogen 11 mg/dL (7-18); Bicarbonate 29 mmol/L (21-32); Bilirubin Direct < 0.1 mg/dL (0-0.2); Bilirubin Total 0.2 mg/dL (0.2-1.0); Glucose Level 207 mg/dL (74-106); Potassium 4.3 mmol/L (3.5-5.1); Protein, Total 6.3 g/dL (6.4-8.2); Sodium Level 142 mmol/L (136-145)
[2019-05-25] MEDS: PANTOPRAZOLE 40MG TABLET PO SCH (07:08)
[2019-05-25] MEDS: INSULIN -REGULAR HUMAN 50 UNIT/0.5 ML ML SQ SCH ×4 (07:30→20:11)
[2019-05-25] MEDS: LOSARTAN POTASSIUM 50 MG TABLET PO SCH (08:00)
[2019-05-25] MEDS: ENOXAPARIN 40 MG/0.4 ML SQ SCH (08:53)
[2019-05-25] MEDS: PREGABALIN 150 MG CAP PO SCH ×2 (08:53→20:11)
[2019-05-25] MEDS: CYANOCOBALAMIN 1,000 MCG TAB PO SCH (08:53)
[2019-05-25] MEDS: FERROUS SULFATE 325 MG TAB PO SCH (08:53)
[2019-05-25] MEDS: FLUOXETINE 20 MG CAP PO SCH (08:53)
[2019-05-25] MEDS: FE SULF/FA/VIT B COMP & C TAB PO SCH (08:54)
[2019-05-25] MEDS: METFORMIN HCL 500 MG TAB PO SCH ×2 (08:54→16:47)
[2019-05-25] MEDS: ASPIRIN EC 81 MG TAB PO SCH (08:54)
[2019-05-25] MEDS: GLIPIZIDE S.A. 5 MG TAB PO SCH ×2 (08:55→16:46)
[2019-05-25] MEDS: AMLODIPINE 5 MG TAB PO SCH (08:55)
[2019-05-25] MEDS: PROMOD 30 ML DOSE PO SCH ×2 (08:56→20:00)
[2019-05-25] MEDS: ARFORMOTEROL TARTRATE 15 MCG/2 ML VIAL.NEB NEB SCH ×2 (11:05→20:00)
--- NOTE | 2019-05-25 18:58 | R.PN ---
ENCOUNTER DATE AND TIME: 05/25/2019 18:55 (CDT) NAME JUSTINA COOPER DATE OF : 1945 DATE OF ADMISSION: 05/17/2019 13:26 (CDT) Pneumonia CHIEF COMPLAINT: Debility and pneumonia SUBJECTIVE: Pt denied any depression. Pt denied any Shortness of Breath. Propelled wheelchair 250' with standby assistance. Ambulated 1000', with standby assistance using a rolling walker. Requires constant verbal encourageme nt. UP and down 15 steps with standby assistance. WBC 9.3, Hgb 9.6, prealbumin 18.5, glucose 164 to 232. Patient states that pain is under control. VITAL SIGNS Temperature: 98.8 F SBP/DBP: 114/52 Pulse: 82 Resp: 16 MEDICATION ALLERGIES: Carbamazapine Iodine ENVIRONMENTAL ALLERGIES: None Known - Substance Allergies None Known - Other Allergies None Known NURSING: - Shower allowing shower ACTIVITIES OOB only with supervision THERAPIES: - Dietary and Nutrition Adequate Nutrition. Nutritional Education. Nutritional Supplements. PHYSICAL EXAM - Gen Alert and awake Lying in bed No apparent distress Oriented to: person, time, and place - Skin No breakdown No abnormalities - Eyes No abnormalities - Neck No abnormalities No cervical adenopathy - CVS RRR - Chest No abnormalities - Resp Clear to auscultation - Abd Soft - GI Non distended Deferred - No abnormalities - Ext No significant edema - MSK 4/5 weakness in both lower extremities. - Neuro No focal deficits - Psych No abnormalities ASSESSMENT: Pt. is a 73 yo Right-handed white female.On 05/08/[address] [facility] with diagno sis Pneumonia .Her impairment category is Medically Complex Conditions 17 - Respiratory Di sorders - Non-ventilator Dependent (17.52).Pre-morbidly, Pt. was independent/mod-I in Transfers Contr ol, Locomotion, and Self-Care; and she had good Balance, Safety Awareness, Sphincter Control, and Com munication.Currently, she has deficits of Transfers Control, Locomotion, Safety Awareness, and Self-C are.Pt. is now referred to [facility] for acute in-patient rehabilitation in [facility] to maximize patient's functional independence in activities of daily living, strength, ROM, and mobility.- Rehab Goal Patient has realistic goal of being discharged at assistance level 6-Larisa to reside at Home with Fam vidhi/Relatives. MDM/PLAN: - Physical Therapy Gait dysfunction - to improve, our physical therapists will perform initial evaluation of pt's statu s upon admission and devise an individualized program for Gait Training, and Wheel Chair mobility Inability to transfer - to improve, our physical therapists will perform initial evaluation of pt's status upon admission and devise an individualized program for Bed mobility Need for home safety evaluation - to improve, our physical therapists will perform initial evaluatio n of pt's status upon admission and devise an individualized program for Home Evaluation Edema - to improve, our physical therapists will perform initial evaluation of pt's status upon admi ssion and devise an individualized program for Elevation Training, and Lymphedema Therapy Need in caregiver upon discharge - to improve, our physical therapists will perform initial evaluati on of pt's status upon admission and devise an individualized program for Caregiver Training New precaution - to improve, our physical therapists will perform initial evaluation of pt's status upon admission and devise an individualized program for Patient precaution education Weakness - to improve, our physical therapists will perform initial evaluation of pt's status upon a dmission and devise an individualized program for Aquatic Therapy, Neuromuscular Reeducation, and Str engthening Achieving independence - to improve, our physical therapists will perform initial evaluation of pt's status upon admission and devise an individualized program for Community Reintegration Activities - Occupational Therapy ADL deficits - to improve, our occupation therapists will perform initial evaluation of pt's status upon admission and devise an individualized program for Bathing, Bed mobility, Community Reintegratio n, Cooking, Dressing, Eating, Fine Motor Skills, Grooming, Homemaking, Kitchen Mobility, Laundry, Pat ient Education, Safety Awareness, Splinting - Positioning, Transfers(Toilet, Tub, Shower), and Wheel Chair Management Need for nurse wound care - to improve, our occupation therapists will perform initial evaluation of pt's status upon admission and devise an individualized program for Caregiver Training Weakness - to improve, our occupation therapists will perform initial evaluation of pt's status upon admission and devise an individualized program for Aquatic Therapy, Balance, Endurance, UE ROM, and UE strengthening - Other See attached MAR (Medication Administration Record) - Diet Type Continue Regular - Diet - Liquid Texture Continue Regular - Tube Feed Continue N/A - Diet - Solid Texture Continue Regular - Shower allowing shower FUNCTIONAL STATUS: UPDATED AT WEEKLY TEAM CONFERENCE - Walking Same score based on distance walked: 1(<=50ft) FUNCTIONAL STATUS: - Self-Care A. Eating Ind B. Grooming Ind C. Bathing sup D. Dressing - Upper sup E. Dressing - Lower Damon F. Toileting sup - Sphincter Control G. Bladder control Larisa H. Bowel control Larisa - Transfers Control I. Bed/Chair/Wheelchair sup J. Toilet sup K. Tub/Shower Damon - Locomotion L. Walk/Wheelchair (B) Damon M. Stairs maxA - Communication N. Comprehension (B) sup O. Expression (B) sup - Social Cognition P. Social Interaction Larisa Q. Problem Solving Damon R. Memory sup - Endurance Fair - Balance Poor - Safety Awareness Fair QI SCORES: - Self-Care A. Eating 05-Setup or clean-up assistance B. Oral hygiene 05-Setup or clean-up assistance C. Toileting hygiene 04-Supervision or touching assistance E. Shower/bathe self 10-Not attempted due to environmental limitations F. Upper body dressing 04-Supervision or touching assistance G. Lower body dressing 88-Not attempted due to medical condition or safety concerns H. Putting on/taking off footwear 88-Not attempted due to medical condition or safety concerns - Mobility A. Roll left and right 04-Supervision or touching assistance B. Sit to lying 04-Supervision or touching assistance C. Lying to sitting on side of bed 04-Supervision or touching assistance D. Sit to stand 04-Supervision or touching assistance E. Chair/[id number] transfer 04-Supervision or touching assistance F. Toilet transfer 04-Supervision or touching assistance G. Car transfer 10-Not attempted due to environmental limitations I. Walk 10 feet 04-Supervision or touching assistance J. Walk 50 feet with two turns 88-Not attempted due to medical condition or safety concerns K. Walk 150 feet 88-Not attempted due to medical condition or safety concerns L. Walking 10 feet on uneven surfaces 88-Not attempted due to medical condition or safety concerns M. 1 step (curb) 88-Not attempted due to medical condition or safety concerns N. 4 steps 88-Not attempted due to medical condition or safety concerns O. 12 steps 88-Not attempted due to medical condition or safety concerns P. Picking up object 88-Not attempted due to medical condition or safety concerns - Bladder and Bowel Bladder continence 0-Always continent Bowel continence 0-Always continent - Endurance Poor - Balance Poor - Safety Awareness Poor CURRENT FUNC. DEFICITS: Self-Care, Mobility, Endurance, Balance, and Safety Awareness SIGNATURE PANEL: (CDT)
[2019-05-25] MEDS: ATORVASTATIN 20 MG TAB PO SCH (20:11)
[2019-05-26] MEDS: ENOXAPARIN 40 MG/0.4 ML SQ SCH (06:59)
[2019-05-26] MEDS: PANTOPRAZOLE 40MG TABLET PO SCH (06:59)
[2019-05-26] MEDS: PROMOD 30 ML DOSE PO SCH ×2 (08:00→20:00)
[2019-05-26] MEDS: ARFORMOTEROL TARTRATE 15 MCG/2 ML VIAL.NEB NEB SCH ×2 (08:25→20:10)
[2019-05-26] MEDS: INSULIN -REGULAR HUMAN 50 UNIT/0.5 ML ML SQ SCH ×4 (08:47→20:34)
[2019-05-26] MEDS: PREGABALIN 150 MG CAP PO SCH ×2 (08:48→20:33)
[2019-05-26] MEDS: GLIPIZIDE S.A. 5 MG TAB PO SCH ×2 (08:48→16:43)
[2019-05-26] MEDS: CYANOCOBALAMIN 1,000 MCG TAB PO SCH (08:48)
[2019-05-26] MEDS: FLUOXETINE 20 MG CAP PO SCH (08:49)
[2019-05-26] MEDS: FE SULF/FA/VIT B COMP & C TAB PO SCH (08:49)
[2019-05-26] MEDS: FERROUS SULFATE 325 MG TAB PO SCH (08:49)
[2019-05-26] MEDS: AMLODIPINE 5 MG TAB PO SCH (08:50)
[2019-05-26] MEDS: LOSARTAN POTASSIUM 50 MG TABLET PO SCH (08:50)
[2019-05-26] MEDS: METFORMIN HCL 500 MG TAB PO SCH ×2 (08:51→16:43)
[2019-05-26] MEDS: ASPIRIN EC 81 MG TAB PO SCH (08:51)
--- NOTE | 2019-05-26 12:12 | FAST ---
ENCOUNTER DATE AND TIME: 05/26/2019 08:00 (CDT) NAME JUSTINA COOPER DATE OF : 1945 DATE OF ADMISSION: 05/17/2019 13:26 (CDT) PHONE: AGE: 73 N# [id number] GENDER: Female ENCOUNTER PHYSICIAN: Dr. Jimenez Agrawal M.D. ADMISSION DIAGNOSIS: - Medically Complex Conditions 17 - Respiratory Disorders - Non-ventilator Dependent (17.52) Pneumonia . EATING: Not assessed/no information CODE: - ORAL HYGIENE: ORAL HYGIENE - STEP 1: Does the patient complete the activity by him/herself with no assistance (physical, verbal/nonverbal cueing, setup/clean-up)? Yes. 1. [id number] ADMISSION PERFORMANCE: Independent CODE: 06 TOILETING HYGIENE: Not assessed/no information CODE: - BATHING: SHOWER/BATHE SELF - STEP 1: Does the patient complete the activity by him/herself with no assistance (physical, verbal/nonverbal cueing, setup/clean-up)? Yes. 1. [id number] ADMISSION PERFORMANCE: Independent CODE: 06 DRESSING - UPPER BODY: DRESSING - UPPER BODY - STEP 1: Does the patient complete the activity by him/herself with no assistance (physical, verbal/nonverbal cueing, setup/clean-up)? Yes. 1. [id number] ADMISSION PERFORMANCE: Independent CODE: 06 DRESSING - LOWER BODY: DRESSING - LOWER BODY - STEP 1: Does the patient complete the activity by him/herself with no assistance (physical, verbal/nonverbal cueing, setup/clean-up)? Yes. 1. [id number] ADMISSION PERFORMANCE: Independent CODE: 06 PUTTING ON/TAKING OFF FOOTWEAR: FOOTWEAR - STEP 1: Does the patient complete the activity by him/herself with no assistance (physical, verbal/nonverbal cueing, setup/clean-up)? Yes. 1. [id number] ADMISSION PERFORMANCE: Independent CODE: 06 DOES THE PATIENT USE A WHEELCHAIR/SCOOTER? CODE: EXPR INDICATE THE TYPE OF WHEELCHAIR/SCOOTER USED: CODE: EXPR INDICATE THE TYPE OF WHEELCHAIR/SCOOTER USED: CODE: EXPR BLADDER AND BOWEL: CODE: EXPR CODE: EXPR SIGNATURE PANEL: The following modified sections: 1. [id number] Admission Performance, 1. [id number] Admission Performance, 1. [id number] Admission Performance, 1. [id number] Admission Performance, 1. [id number] Admission Performance were [electronically] signed by OMARI Larsen on FriMay 26 2019 12:11:16 T-0500 (Central Daylight Time)
--- NOTE | 2019-05-26 15:26 | R.PN ---
ENCOUNTER DATE AND TIME: 05/26/2019 15:22 (CDT) NAME JUSTINA COOPER DATE OF : 1945 DATE OF ADMISSION: 05/17/2019 13:26 (CDT) Pneumonia CHIEF COMPLAINT: Debility and pneumonia SUBJECTIVE: Pt denied any depression. Pt denied any Shortness of Breath. Propelled wheelchair 250' with standby assistance. Ambulated 750', with independence using a rolling walker. Requires constant verbal encouragement. UP and down 15 steps with independence. WBC 9.3, Hgb 9.6, prealbumin 18.5, glucose 206 to 228. Patient states that pain is under control. VITAL SIGNS Temperature: 97.9 F SBP/DBP: 122/66 Pulse: 82 Resp: 16 MEDICATION ALLERGIES: Carbamazapine Iodine ENVIRONMENTAL ALLERGIES: None Known - Substance Allergies None Known - Other Allergies None Known NURSING: - Shower allowing shower ACTIVITIES OOB only with supervision THERAPIES: - Dietary and Nutrition Adequate Nutrition. Nutritional Education. Nutritional Supplements. PHYSICAL EXAM - Gen Alert and awake Lying in bed No apparent distress Oriented to: person, time, and place - Skin No breakdown No abnormalities - Eyes No abnormalities - Neck No abnormalities No cervical adenopathy - CVS RRR - Chest No abnormalities - Resp Clear to auscultation - Abd Soft - GI Non distended Deferred - No abnormalities - Ext No significant edema - MSK 4/5 weakness in both lower extremities. - Neuro No focal deficits - Psych No abnormalities ASSESSMENT: Pt. is a 73 yo Right-handed white female.On 05/08/2019 she was admitted to [facility] with diagno sis Pneumonia .Her impairment category is Medically Complex Conditions 17 - Respiratory Di sorders - Non-ventilator Dependent (17.52).Pre-morbidly, Pt. was independent/mod-I in Transfers Contr ol, Locomotion, and Self-Care; and she had good Balance, Safety Awareness, Sphincter Control, and Com munication.Currently, she has deficits of Transfers Control, Locomotion, Safety Awareness, and Self-C are.Pt. is now referred to [facility] for acute in-patient rehabilitation in [facility] to maximize patient's functional independence in activities of daily living, strength, ROM, and mobility.- Rehab Goal Patient has realistic goal of being discharged at assistance level 6-Larisa to reside at Home with Fam vidhi/Relatives. MDM/PLAN: - Physical Therapy Gait dysfunction - to improve, our physical therapists will perform initial evaluation of pt's statu s upon admission and devise an individualized program for Gait Training, and Wheel Chair mobility Inability to transfer - to improve, our physical therapists will perform initial evaluation of pt's status upon admission and devise an individualized program for Bed mobility Need for home safety evaluation - to improve, our physical therapists will perform initial evaluatio n of pt's status upon admission and devise an individualized program for Home Evaluation Edema - to improve, our physical therapists will perform initial evaluation of pt's status upon admi ssion and devise an individualized program for Elevation Training, and Lymphedema Therapy Need in caregiver upon discharge - to improve, our physical therapists will perform initial evaluati on of pt's status upon admission and devise an individualized program for Caregiver Training New precaution - to improve, our physical therapists will perform initial evaluation of pt's status upon admission and devise an individualized program for Patient precaution education Weakness - to improve, our physical therapists will perform initial evaluation of pt's status upon a dmission and devise an individualized program for Aquatic Therapy, Neuromuscular Reeducation, and Str engthening Achieving independence - to improve, our physical therapists will perform initial evaluation of pt's status upon admission and devise an individualized program for Community Reintegration Activities - Occupational Therapy ADL deficits - to improve, our occupation therapists will perform initial evaluation of pt's status upon admission and devise an individualized program for Bathing, Bed mobility, Community Reintegratio n, Cooking, Dressing, Eating, Fine Motor Skills, Grooming, Homemaking, Kitchen Mobility, Laundry, Pat ient Education, Safety Awareness, Splinting - Positioning, Transfers(Toilet, Tub, Shower), and Wheel Chair Management Need for career placement specialist - to improve, our occupation therapists will perform initial evaluation of pt's status upon admission and devise an individualized program for Caregiver Training Weakness - to improve, our occupation therapists will perform initial evaluation of pt's status upon admission and devise an individualized program for Aquatic Therapy, Balance, Endurance, UE ROM, and UE strengthening - Other See attached MAR (Medication Administration Record) - Diet Type Continue Regular - Diet - Liquid Texture Continue Regular - Tube Feed Continue N/A - Diet - Solid Texture Continue Regular - Shower allowing shower FUNCTIONAL STATUS: UPDATED AT WEEKLY TEAM CONFERENCE - Walking Same score based on distance walked: 1(<=50ft) FUNCTIONAL STATUS: - Self-Care A. Eating Ind B. Grooming Ind C. Bathing sup D. Dressing - Upper sup E. Dressing - Lower Damon F. Toileting sup - Sphincter Control G. Bladder control Larisa H. Bowel control Larisa - Transfers Control I. Bed/Chair/Wheelchair sup J. Toilet sup K. Tub/Shower Damon - Locomotion L. Walk/Wheelchair (B) Damon M. Stairs maxA - Communication N. Comprehension (B) sup O. Expression (B) sup - Social Cognition P. Social Interaction Larisa Q. Problem Solving Damon R. Memory sup - Endurance Fair - Balance Poor - Safety Awareness Fair QI SCORES: - Self-Care A. Eating 05-Setup or clean-up assistance B. Oral hygiene 05-Setup or clean-up assistance C. Toileting hygiene 04-Supervision or touching assistance E. Shower/bathe self 10-Not attempted due to environmental limitations F. Upper body dressing 04-Supervision or touching assistance G. Lower body dressing 88-Not attempted due to medical condition or safety concerns H. Putting on/taking off footwear 88-Not attempted due to medical condition or safety concerns - Mobility A. Roll left and right 04-Supervision or touching assistance B. Sit to lying 04-Supervision or touching assistance C. Lying to sitting on side of bed 04-Supervision or touching assistance D. Sit to stand 04-Supervision or touching assistance E. Chair/[id number]-[id number] transfer 04-Supervision or touching assistance F. Toilet transfer 04-Supervision or touching assistance G. Car transfer 10-Not attempted due to environmental limitations I. Walk 10 feet 04-Supervision or touching assistance J. Walk 50 feet with two turns 88-Not attempted due to medical condition or safety concerns K. Walk 150 feet 88-Not attempted due to medical condition or safety concerns L. Walking 10 feet on uneven surfaces 88-Not attempted due to medical condition or safety concerns M. 1 step (curb) 88-Not attempted due to medical condition or safety concerns N. 4 steps 88-Not attempted due to medical condition or safety concerns O. 12 steps 88-Not attempted due to medical condition or safety concerns P. Picking up object 88-Not attempted due to medical condition or safety concerns - Bladder and Bowel Bladder continence 0-Always continent Bowel continence 0-Always continent - Endurance Poor - Balance Poor - Safety Awareness Poor CURRENT FUNC. DEFICITS: Self-Care, Mobility, Endurance, Balance, and Safety Awareness SIGNATURE PANEL: (CDT)
[2019-05-26] MEDS ORDERED: DOCUSATE NA/SENNA CONC 1 TAB PO PRN (18:42)
[2019-05-26] MEDS: NYSTATIN PWDR 100000 UNIT/GM TOP SCH (20:33)
[2019-05-26] MEDS: ATORVASTATIN 20 MG TAB PO SCH (20:33)
[2019-05-27 06:20] LABS: Absolute Lymphocytes (CBC) 3.4 K/uL (0.7-4.9); Basophils % 0.2 % (0-1.3); Hematocrit 30.4 % (36.0-45.0); Lymphocytes % 34.2 % (15.3-44.8); MPV 9.4 fL (7.6-11.3); RBC Red Blood Cell Count 3.79 M/uL (3.86-4.86)
[2019-05-27 06:29] LABS: BUN Blood Urea Nitrogen 13 mg/dL (7-18); Bicarbonate 24 mmol/L (21-32); Glucose Level 177 mg/dL (74-106); Potassium 4.1 mmol/L (3.5-5.1); Prealbumin 21.7 mg/dL (20-40); Sodium Level 139 mmol/L (136-145)
[2019-05-27] MEDS: ENOXAPARIN 40 MG/0.4 ML SQ SCH (06:50)
[2019-05-27] MEDS: PANTOPRAZOLE 40MG TABLET PO SCH (06:50)
[2019-05-27] MEDS: INSULIN -REGULAR HUMAN 50 UNIT/0.5 ML ML SQ SCH ×4 (07:30→19:59)
[2019-05-27] MEDS: LOSARTAN POTASSIUM 50 MG TABLET PO SCH (08:00)
[2019-05-27] MEDS: AMLODIPINE 5 MG TAB PO SCH (08:00)
[2019-05-27] MEDS: PROMOD 30 ML DOSE PO SCH ×2 (08:00→19:39)
[2019-05-27] MEDS: NYSTATIN PWDR 100000 UNIT/GM TOP SCH ×2 (08:21→19:39)
[2019-05-27] MEDS: ASPIRIN EC 81 MG TAB PO SCH (08:21)
[2019-05-27] MEDS: METFORMIN HCL 500 MG TAB PO SCH ×2 (08:22→16:53)
[2019-05-27] MEDS: FERROUS SULFATE 325 MG TAB PO SCH (08:22)
[2019-05-27] MEDS: PREGABALIN 150 MG CAP PO SCH ×2 (08:22→19:39)
[2019-05-27] MEDS: FLUOXETINE 20 MG CAP PO SCH (08:22)
[2019-05-27] MEDS: GLIPIZIDE S.A. 5 MG TAB PO SCH ×2 (08:23→16:52)
[2019-05-27] MEDS: CYANOCOBALAMIN 1,000 MCG TAB PO SCH (08:23)
[2019-05-27] MEDS: FE SULF/FA/VIT B COMP & C TAB PO SCH (08:23)
[2019-05-27 08:30] LABS: Blood Morphology Comment NOT SEEN (NOT SEEN); Platelet Estimate ADEQ
[2019-05-27] MEDS: ARFORMOTEROL TARTRATE 15 MCG/2 ML VIAL.NEB NEB SCH ×2 (09:00→20:30)
[2019-05-27] MEDS: IPRATROPIUM BROM 0.5MG/2.5ML NEB PRN ×2 (09:00→20:30)
--- NOTE | 2019-05-27 11:49 | FAST ---
SHIFT START DATE/TIME: 05/27/2019 07:00 (CDT) SHIFT END DATE/TIME: 05/27/2019 19:00 (CDT) NAME JUSTINA COOPER DATE OF : 1945 DATE OF ADMISSION: 05/17/2019 13:26 (CDT) PHONE: AGE: 73 N# [id number] GENDER: Female ENCOUNTER PHYSICIAN: Dr. Jimenez Agrawal M.D. ADMISSION DIAGNOSIS: - Medically Complex Conditions 17 - Respiratory Disorders - Non-ventilator Dependent (17.52) Pneumonia . EATING: EATING - STEP 1: Does the patient complete the activity by him/herself with no assistance (physical, verbal/nonverbal cueing, setup/clean-up)? No. EATING - STEP 2: Does the patient need only setup/clean-up assistance from one helper? No. EATING - STEP 3: Does the patient need only verbal/nonverbal cueing or touching/steadying/contact guard assistance fro m one helper? Yes. 1. [id number] ADMISSION PERFORMANCE: Supervision or touching assistance CODE: 04 ORAL HYGIENE: ORAL HYGIENE - STEP 1: Does the patient complete the activity by him/herself with no assistance (physical, verbal/nonverbal cueing, setup/clean-up)? No. ORAL HYGIENE - STEP 2: Does the patient need only setup/clean-up assistance from one helper? Yes. 1. [id number] ADMISSION PERFORMANCE: Setup or clean-up assistance CODE: 05 TOILETING HYGIENE: TOILETING HYGIENE - STEP 1: Does the patient complete the activity by him/herself with no assistance (physical, verbal/nonverbal cueing, setup/clean-up)? No. TOILETING HYGIENE - STEP 2: Does the patient need only setup/clean-up assistance from one helper? No. TOILETING HYGIENE - STEP 3: Does the patient need only verbal/nonverbal cueing or touching/steadying/contact guard assistance fro m one helper? Yes. 1. [id number] ADMISSION PERFORMANCE: Supervision or touching assistance CODE: 04 BATHING: Not assessed/no information CODE: - DRESSING - UPPER BODY: Not assessed/no information CODE: - DRESSING - LOWER BODY: Not assessed/no information CODE: - PUTTING ON/TAKING OFF FOOTWEAR: Not assessed/no information CODE: - ROLL LEFT AND RIGHT: Not assessed/no information CODE: - SIT TO LYING: Not assessed/no information CODE: - LYING TO SITTING: LYING TO SITTING ON SIDE OF BED - STEP 1: Does the patient complete the activity by him/herself with no assistance (physical, verbal/nonverbal cueing, setup/clean-up)? No. LYING TO SITTING ON SIDE OF BED - STEP 2: Does the patient need only setup/clean-up assistance from one helper? Yes. 1. [id number] ADMISSION PERFORMANCE: Setup or clean-up assistance CODE: 05 SIT TO STAND: SIT TO STAND - STEP 1: Does the patient complete the activity by him/herself with no assistance (physical, verbal/nonverbal cueing, setup/clean-up)? No. SIT TO STAND - STEP 2: Does the patient need only setup/clean-up assistance from one helper? Yes. 1. [id number] ADMISSION PERFORMANCE: Setup or clean-up assistance CODE: 05 TRANSFERS: BED, CHAIR: CHAIR/[id number] TRANSFER - STEP 1: Does the patient complete the activity by him/herself with no assistance (physical, verbal/nonverbal cueing, setup/clean-up)? No. CHAIR/[id number] TRANSFER - STEP 2: Does the patient need only setup/clean-up assistance from one helper? No. CHAIR/[id number] TRANSFER - STEP 3: Does the patient need only verbal/nonverbal cueing or touching/steadying/contact guard assistance fro m one helper? Yes. 1. [id number] ADMISSION PERFORMANCE: Supervision or touching assistance CODE: 04 TRANSFER TOILET: TOILET TRANSFER - STEP 1: Does the patient complete the activity by him/herself with no assistance (physical, verbal/nonverbal cueing, setup/clean-up)? No. TOILET TRANSFER - STEP 2: Does the patient need only setup/clean-up assistance from one helper? Yes. 1. [id number] ADMISSION PERFORMANCE: Setup or clean-up assistance CODE: 05 TRANSFERS: CAR: Not assessed/no information CODE: - WALK 10 FEET: Not assessed/no information CODE: - 1 STEP (CURB): Not assessed/no information CODE: - PICKING UP OBJECT: Not assessed/no information CODE: - DOES THE PATIENT USE A WHEELCHAIR/SCOOTER? CODE: EXPR WHEEL 50 FEET WITH TWO TURNS: Not assessed/no information CODE: - INDICATE THE TYPE OF WHEELCHAIR/SCOOTER USED: CODE: EXPR WHEEL 150 FEET: Not assessed/no information CODE: - INDICATE THE TYPE OF WHEELCHAIR/SCOOTER USED: CODE: EXPR BLADDER AND BOWEL: H350. BLADDER CONTINENCE (3-DAY ASSESSMENT PERIOD): Always continent (no documented incontinence) CODE: 0 H400. BOWEL CONTINENCE (3-DAY ASSESSMENT PERIOD): Always continent CODE: 0 SIGNATURE PANEL: The following modified sections: 1. [id number] Admission Performance, 1. [id number] Admission Performance, 1. [id number] Admission Performance, 1. [id number] Admission Performance, 1. [id number] Admission Performance, 1. [id number] Admission Performance, 1. [id number] Admission Performance, Code, H350. Bladder Continence ( 3-day assessment period), H400. Bowel Continence (3-day assessment period) were [electronically] sign ed by Neal Renee on FriMay 27 2019 11:48:27 T-0500 (Central Daylight Time)
[2019-05-27] MEDS ORDERED: AMLODIPINE 5 MG TAB PO SCH (11:50)
[2019-05-27] MEDS ORDERED: LOSARTAN POTASSIUM 50 MG TABLET PO SCH (11:51)
--- NOTE | 2019-05-27 17:33 | R.PN ---
ENCOUNTER DATE AND TIME: 05/27/2019 17:30 (CDT) NAME JUSTINA COOPER DATE OF : 1945 DATE OF ADMISSION: 05/17/2019 13:26 (CDT) Pneumonia CHIEF COMPLAINT: Debility and pneumonia SUBJECTIVE: Pt denied any depression. Pt denied any Shortness of Breath. Propelled wheelchair 250' with standby assistance. Ambulated 1000', with independence using a rolling walker. Requires constant verbal encouragement. UP and down 15 steps with independence. Self-propelled wheelchair 500' with independence. WBC 9.3, Hgb 9.6, prealbumin 18.5, glucose 206 to 228. Patient states that pain is under control. VITAL SIGNS Temperature: 98.3 F SBP/DBP: 109/44 Pulse: 72 Resp: 16 MEDICATION ALLERGIES: Carbamazapine Iodine ENVIRONMENTAL ALLERGIES: None Known - Substance Allergies None Known - Other Allergies None Known NURSING: - Shower allowing shower ACTIVITIES OOB only with supervision THERAPIES: - Dietary and Nutrition Adequate Nutrition. Nutritional Education. Nutritional Supplements. PHYSICAL EXAM - Gen Alert and awake Lying in bed No apparent distress Oriented to: person, time, and place - Skin No breakdown No abnormalities - Eyes No abnormalities - Neck No abnormalities No cervical adenopathy - CVS RRR - Chest No abnormalities - Resp Clear to auscultation - Abd Soft - GI Non distended Deferred - No abnormalities - Ext No significant edema - MSK 4/5 weakness in both lower extremities. - Neuro No focal deficits - Psych No abnormalities ASSESSMENT: Pt. is a 73 yo Right-handed white female.On 05/08/2019 she was admitted to [facility] with diagno sis Pneumonia .Her impairment category is Medically Complex Conditions 17 - Respiratory Di sorders - Non-ventilator Dependent (17.52).Pre-morbidly, Pt. was independent/mod-I in Transfers Contr ol, Locomotion, and Self-Care; and she had good Balance, Safety Awareness, Sphincter Control, and Com munication.Currently, she has deficits of Transfers Control, Locomotion, Safety Awareness, and Self-C are.Pt. is now referred to [facility] for acute in-patient rehabilitation in [facility] to maximize patient's functional independence in activities of daily living, strength, ROM, and mobility.- Rehab Goal Patient has realistic goal of being discharged at assistance level 6-Larisa to reside at Home with Fam vidhi/Relatives. MDM/PLAN: - Physical Therapy Gait dysfunction - to improve, our physical therapists will perform initial evaluation of pt's statu s upon admission and devise an individualized program for Gait Training, and Wheel Chair mobility Inability to transfer - to improve, our physical therapists will perform initial evaluation of pt's status upon admission and devise an individualized program for Bed mobility Need for home safety evaluation - to improve, our physical therapists will perform initial evaluatio n of pt's status upon admission and devise an individualized program for Home Evaluation Edema - to improve, our physical therapists will perform initial evaluation of pt's status upon admi ssion and devise an individualized program for Elevation Training, and Lymphedema Therapy Need in caregiver upon discharge - to improve, our physical therapists will perform initial evaluati on of pt's status upon admission and devise an individualized program for Caregiver Training New precaution - to improve, our physical therapists will perform initial evaluation of pt's status upon admission and devise an individualized program for Patient precaution education Weakness - to improve, our physical therapists will perform initial evaluation of pt's status upon a dmission and devise an individualized program for Aquatic Therapy, Neuromuscular Reeducation, and Str engthening Achieving independence - to improve, our physical therapists will perform initial evaluation of pt's status upon admission and devise an individualized program for Community Reintegration Activities - Occupational Therapy ADL deficits - to improve, our occupation therapists will perform initial evaluation of pt's status upon admission and devise an individualized program for Bathing, Bed mobility, Community Reintegratio n, Cooking, Dressing, Eating, Fine Motor Skills, Grooming, Homemaking, Kitchen Mobility, Laundry, Pat ient Education, Safety Awareness, Splinting - Positioning, Transfers(Toilet, Tub, Shower), and Wheel Chair Management Need for professional healthcare representative - to improve, our occupation therapists will perform initial evaluation of pt's status upon admission and devise an individualized program for Caregiver Training Weakness - to improve, our occupation therapists will perform initial evaluation of pt's status upon admission and devise an individualized program for Aquatic Therapy, Balance, Endurance, UE ROM, and UE strengthening - Other See attached MAR (Medication Administration Record) - Diet Type Continue Regular - Diet - Liquid Texture Continue Regular - Tube Feed Continue N/A - Diet - Solid Texture Continue Regular - Shower allowing shower FUNCTIONAL STATUS: UPDATED AT WEEKLY TEAM CONFERENCE - Walking Same score based on distance walked: 1(<=50ft) FUNCTIONAL STATUS: - Self-Care A. Eating Ind B. Grooming Ind C. Bathing sup D. Dressing - Upper sup E. Dressing - Lower Damon F. Toileting sup - Sphincter Control G. Bladder control Larisa H. Bowel control Larisa - Transfers Control I. Bed/Chair/Wheelchair sup J. Toilet sup K. Tub/Shower Damon - Locomotion L. Walk/Wheelchair (B) Damon M. Stairs maxA - Communication N. Comprehension (B) sup O. Expression (B) sup - Social Cognition P. Social Interaction Larisa Q. Problem Solving Damon R. Memory sup - Endurance Fair - Balance Poor - Safety Awareness Fair QI SCORES: - Self-Care A. Eating 05-Setup or clean-up assistance B. Oral hygiene 05-Setup or clean-up assistance C. Toileting hygiene 04-Supervision or touching assistance E. Shower/bathe self 10-Not attempted due to environmental limitations F. Upper body dressing 04-Supervision or touching assistance G. Lower body dressing 88-Not attempted due to medical condition or safety concerns H. Putting on/taking off footwear 88-Not attempted due to medical condition or safety concerns - Mobility A. Roll left and right 04-Supervision or touching assistance B. Sit to lying 04-Supervision or touching assistance C. Lying to sitting on side of bed 04-Supervision or touching assistance D. Sit to stand 04-Supervision or touching assistance E. Chair/xim-bx-tarka transfer 04-Supervision or touching assistance F. Toilet transfer 04-Supervision or touching assistance G. Car transfer 10-Not attempted due to environmental limitations I. Walk 10 feet 04-Supervision or touching assistance J. Walk 50 feet with two turns 88-Not attempted due to medical condition or safety concerns K. Walk 150 feet 88-Not attempted due to medical condition or safety concerns L. Walking 10 feet on uneven surfaces 88-Not attempted due to medical condition or safety concerns M. 1 step (curb) 88-Not attempted due to medical condition or safety concerns N. 4 steps 88-Not attempted due to medical condition or safety concerns O. 12 steps 88-Not attempted due to medical condition or safety concerns P. Picking up object 88-Not attempted due to medical condition or safety concerns - Bladder and Bowel Bladder continence 0-Always continent Bowel continence 0-Always continent - Endurance Poor - Balance Poor - Safety Awareness Poor CURRENT FUNC. DEFICITS: Self-Care, Mobility, Endurance, Balance, and Safety Awareness SIGNATURE PANEL: (CDT)
[2019-05-27] MEDS: AMLODIPINE 2.5 MG TAB PO SCH (19:40)
[2019-05-27] MEDS: ATORVASTATIN 20 MG TAB PO SCH (19:59)
[2019-05-28] MEDS: ENOXAPARIN 40 MG/0.4 ML SQ SCH (06:43)
[2019-05-28] MEDS: PANTOPRAZOLE 40MG TABLET PO SCH (06:43)
[2019-05-28] MEDS: INSULIN -REGULAR HUMAN 50 UNIT/0.5 ML ML SQ SCH ×4 (07:03→21:39)
[2019-05-28] MEDS: PREGABALIN 150 MG CAP PO SCH ×2 (07:33→19:41)
[2019-05-28] MEDS: FLUOXETINE 20 MG CAP PO SCH (07:35)
[2019-05-28] MEDS: AMLODIPINE 2.5 MG TAB PO SCH ×2 (07:35→19:41)
[2019-05-28] MEDS: FERROUS SULFATE 325 MG TAB PO SCH (07:35)
[2019-05-28] MEDS: PROMOD 30 ML DOSE PO SCH ×2 (07:36→19:43)
[2019-05-28] MEDS: CYANOCOBALAMIN 1,000 MCG TAB PO SCH (07:36)
[2019-05-28] MEDS: METFORMIN HCL 500 MG TAB PO SCH ×2 (07:37→17:07)
[2019-05-28] MEDS: LOSARTAN POTASSIUM 50 MG TABLET PO SCH (07:37)
[2019-05-28] MEDS: ASPIRIN EC 81 MG TAB PO SCH (07:37)
[2019-05-28] MEDS: GLIPIZIDE S.A. 5 MG TAB PO SCH ×2 (07:38→17:07)
[2019-05-28] MEDS: FE SULF/FA/VIT B COMP & C TAB PO SCH (07:38)
[2019-05-28] MEDS: ARFORMOTEROL TARTRATE 15 MCG/2 ML VIAL.NEB NEB SCH ×2 (07:44→20:20)
[2019-05-28] MEDS: NYSTATIN PWDR 100000 UNIT/GM TOP SCH ×2 (07:45→20:00)
--- NOTE | 2019-05-28 10:09 | P.RH.PN ---
Estimated Length of Stay: 16 Expected Discharge Date: 06/01/19 Discharge Disposition Plan: Home Family Support: Yes Care Home Goal: Mobility, Transfers, Self Care Vital Signs: Last Vital Signs Temp 98.5 F 05/28/19 07:30 Pulse 70 05/28/19 07:35 Resp 16 05/28/19 07:30 BP 114/58 L 05/28/19 07:35 Pulse Ox 96 05/28/19 07:30 Laboratory: Laboratory Last Values WBC 10.0 K/uL (4.3-10.9) 05/27/19 05:47 RBC 3.79 M/uL (3.86-4.86) L 05/27/19 05:47 Hgb 9.5 g/dL (12.0-15.0) L 05/27/19 05:47 Hct 30.4 % (36.0-45.0) L 05/27/19 05:47 MCV 80.0 fL (80-100) 05/27/19 05:47 MCH 25.0 pg (27.0-35.0) L 05/27/19 05:47 MCHC 31.3 g/dL (32.0-36.0) L 05/27/19 05:47 RDW 17.0 % (12.1-15.2) H 05/27/19 05:47 Plt Count 307 K/uL (152-406) D 05/27/19 05:47 MPV 9.4 fL (7.6-11.3) D 05/27/19 05:47 Neutrophils % 49.9 % (41.7-73.7) 05/27/19 05:47 Lymphocytes % 34.2 % (15.3-44.8) 05/27/19 05:47 Monocytes % 7.3 % (3.3-12.3) 05/27/19 05:47 Eosinophils % 8.4 % (0-4.4) H 05/27/19 05:47 Basophils % 0.2 % (0-1.3) 05/27/19 05:47 Absolute Neutrophils 5.0 K/uL (1.8-8.0) 05/27/19 05:47 Segmented Neutrophils 42 % (40-80) 05/27/19 05:47 Band Neutrophils 1 % (0-1) 05/27/19 05:47 Absolute Lymphocytes 3.4 K/uL (0.7-4.9) 05/27/19 05:47 Lymphocytes 42 % (15-42) 05/27/19 05:47 Monocytes 1 % (0-10) 05/27/19 05:47 Absolute Monocytes 0.7 K/uL (0.1-1.3) 05/27/19 05:47 Eosinophils 12 % (0-3) H 05/27/19 05:47 Absolute Eosinophils 0.8 K/uL (0-0.5) H 05/27/19 05:47 Basophils 2 % (0-1) H 05/27/19 05:47 Absolute Basophils 0.0 K/uL (0-0.5) 05/27/19 05:47 Morphology Comment Not seen (NOT SEEN) 05/27/19 05:47 Sodium 139 mmol/L (136-145) 05/27/19 05:47 Potassium 4.1 mmol/L (3.5-5.1) 05/27/19 05:47 Chloride 106 mmol/L (98-107) 05/27/19 05:47 Carbon Dioxide 24 mmol/L (21-32) 05/27/19 05:47 BUN 13 mg/dL (7-18) 05/27/19 05:47 Creatinine 0.63 mg/dL (0.55-1.3) 05/27/19 05:47 Estimated GFR > 90 mL/min (=/>90) 05/27/19 05:47 Glucose 177 mg/dL (74-106) H 05/27/19 05:47 POC Glucose 160 mg/dl (65-120) H 05/28/19 06:48 Calcium 9.0 mg/dL (8.5-10.1) 05/27/19 05:47 Magnesium 2.0 mg/dL (1.8-2.4) 05/20/19 06:24 Total Bilirubin 0.2 mg/dL (0.2-1.0) 05/25/19 05:40 Direct Bilirubin < 0.1 mg/dL (0-0.2) 05/25/19 05:40 AST 17 U/L (15-37) 05/25/19 05:40 ALT 34 U/L (12-78) 05/25/19 05:40 Alkaline Phosphatase 85 U/L (45-117) 05/25/19 05:40 Serum Total Protein 6.3 g/dL (6.4-8.2) L 05/25/19 05:40 Albumin 3.0 g/dL (3.4-5.0) L 05/27/19 05:47 Globulin 3.6 g/dL (2.3-3.5) H 05/25/19 05:40 Albumin/Globulin Ratio 0.8 (1.1-1.8) L 05/25/19 05:40 Prealbumin 21.7 mg/dL (20-40) 05/27/19 05:47 Urine Color Yellow 05/17/19 17:23 Urine Appearance Clear 05/17/19 17:23 Urine pH 6.0 (5.0-7.0) 05/17/19 17:23 Ur Specific Donovan 1.010 (1.005-1.030) 05/17/19 17:23 Glucose (UA)(Auto) 1+ (NEG) H 05/17/19 17:23 Urine Ketones Negative (NEG) 05/17/19 17:23 Urine Blood Negative (NEG) 05/17/19 17:23 Urine Nitrite Negative (NEG) 05/17/19 17:23 Urine Bilirubin Negative (NEG) 05/17/19 17:23 Urine Urobilinogen 2.0 mg/dL (0.2-1.0) H 05/17/19 17:23 Ur Leukocyte Esterase 1+ (NEG) H 05/17/19 17:23 Urine RBC <5 /HPF (NONE SEEN) 05/17/19 17:23 Urine WBC 5-10 /HPF (<5) H 05/17/19 17:23 Ur Squamous Epith Cells 10-20 /HPF (NONE SEEN) H 05/17/19 17:23 Urine Bacteria <20 /HPF (<20) 05/17/19 17:23 Urine Culture Reflexed Reflexed 05/17/19 17:23 Urine Total Protein Negative (NEG) 05/17/19 17:23 Weight: 180 lb 14.4 oz Wound Present: No Closed Surgical Incision Present: Yes Negative Pressure Wound Therapy Present: No Physician Update: Labs reviewed and are stable. She is doing well with physical and occupational therapy. She is independent. She will discharge home with [facility]. Functional Improvement: Patient has met all short-term and long-term goals, w/ the exception of D/C or car transfers. Patient presents w/ good technique and overall safety awareness. Speech Therapy Update: Minimal to mild cognitive impairment is present. She has made good gains and is considered Supervision to MOD I with memory and Problem Solving Summary: Patient's care plan and terminal make up operator goals have been reviewed and revised as necessary. Please see the Rehabilitation Signature page for all necessary signatures.
--- NOTE | 2019-05-28 12:17 | FAST ---
ENCOUNTER DATE AND TIME: 05/28/2019 08:00 (CDT) NAME JUSTINA COOPER DATE OF : 1945 DATE OF ADMISSION: 05/17/2019 13:26 (CDT) PHONE: AGE: 73 N# [id number] GENDER: Female ENCOUNTER PHYSICIAN: Dr. Jimenez Agrawal M.D. ADMISSION DIAGNOSIS: - Medically Complex Conditions 17 - Respiratory Disorders - Non-ventilator Dependent (17.52) Pneumonia . EATING: Not assessed/no information CODE: - ORAL HYGIENE: ORAL HYGIENE - STEP 1: Does the patient complete the activity by him/herself with no assistance (physical, verbal/nonverbal cueing, setup/clean-up)? Yes. 1. [id number] ADMISSION PERFORMANCE: Independent CODE: 06 TOILETING HYGIENE: Not assessed/no information CODE: - BATHING: SHOWER/BATHE SELF - STEP 1: Does the patient complete the activity by him/herself with no assistance (physical, verbal/nonverbal cueing, setup/clean-up)? Yes. 1. [id number] ADMISSION PERFORMANCE: Independent CODE: 06 DRESSING - UPPER BODY: DRESSING - UPPER BODY - STEP 1: Does the patient complete the activity by him/herself with no assistance (physical, verbal/nonverbal cueing, setup/clean-up)? Yes. 1. [id number] ADMISSION PERFORMANCE: Independent CODE: 06 DRESSING - LOWER BODY: DRESSING - LOWER BODY - STEP 1: Does the patient complete the activity by him/herself with no assistance (physical, verbal/nonverbal cueing, setup/clean-up)? Yes. 1. [id number] ADMISSION PERFORMANCE: Independent CODE: 06 PUTTING ON/TAKING OFF FOOTWEAR: FOOTWEAR - STEP 1: Does the patient complete the activity by him/herself with no assistance (physical, verbal/nonverbal cueing, setup/clean-up)? Yes. 1. [id number] ADMISSION PERFORMANCE: Independent CODE: 06 DOES THE PATIENT USE A WHEELCHAIR/SCOOTER? CODE: EXPR INDICATE THE TYPE OF WHEELCHAIR/SCOOTER USED: CODE: EXPR INDICATE THE TYPE OF WHEELCHAIR/SCOOTER USED: CODE: EXPR BLADDER AND BOWEL: CODE: EXPR CODE: EXPR SIGNATURE PANEL: The following modified sections: 1. [id number] Admission Performance, 1. [id number] Admission Performance, 1. [id number] Admission Performance, 1. [id number] Admission Performance, 1. [id number] Admission Performance were [electronically] signed by OMARI Larsen on FriMay 28 2019 12:16:24 GMT-0500 (Central Daylight Time)
[2019-05-28] MEDS: ATORVASTATIN 20 MG TAB PO SCH (21:40)
--- NOTE | 2019-05-29 02:25 | FAST ---
SHIFT START DATE/TIME: 05/28/2019 19:00 (CDT) SHIFT END DATE/TIME: 05/29/2019 07:00 (CDT) NAME JUSTINA COOPER DATE OF : 1945 DATE OF ADMISSION: 05/17/2019 13:26 (CDT) PHONE: AGE: 73 N# [id number] GENDER: Female ENCOUNTER PHYSICIAN: Dr. Jimenez Agrawal M.D. ADMISSION DIAGNOSIS: - Medically Complex Conditions 17 - Respiratory Disorders - Non-ventilator Dependent (17.52) Pneumonia . EATING: Not assessed/no information CODE: - ORAL HYGIENE: Not assessed/no information CODE: - TOILETING HYGIENE: TOILETING HYGIENE - STEP 1: Does the patient complete the activity by him/herself with no assistance (physical, verbal/nonverbal cueing, setup/clean-up)? No. TOILETING HYGIENE - STEP 2: Does the patient need only setup/clean-up assistance from one helper? No. TOILETING HYGIENE - STEP 3: Does the patient need only verbal/nonverbal cueing or touching/steadying/contact guard assistance fro m one helper? Yes. 1. [id number] ADMISSION PERFORMANCE: Supervision or touching assistance CODE: 04 BATHING: Not assessed/no information CODE: - DRESSING - UPPER BODY: Not assessed/no information CODE: - DRESSING - LOWER BODY: Not assessed/no information CODE: - PUTTING ON/TAKING OFF FOOTWEAR: Not assessed/no information CODE: - ROLL LEFT AND RIGHT: ROLL LEFT AND RIGHT - STEP 1: Does the patient complete the activity by him/herself with no assistance (physical, verbal/nonverbal cueing, setup/clean-up)? No. ROLL LEFT AND RIGHT - STEP 2: Does the patient need only setup/clean-up assistance from one helper? No. ROLL LEFT AND RIGHT - STEP 3: Does the patient need only verbal/nonverbal cueing or touching/steadying/contact guard assistance fro m one helper? Yes. 1. [id number] ADMISSION PERFORMANCE: Supervision or touching assistance CODE: 04 SIT TO LYING: SIT TO LYING - STEP 1: Does the patient complete the activity by him/herself with no assistance (physical, verbal/nonverbal cueing, setup/clean-up)? No. SIT TO LYING - STEP 2: Does the patient need only setup/clean-up assistance from one helper? No. SIT TO LYING - STEP 3: Does the patient need only verbal/nonverbal cueing or touching/steadying/contact guard assistance fro m one helper? Yes. 1. [id number] ADMISSION PERFORMANCE: Supervision or touching assistance CODE: 04 LYING TO SITTING: LYING TO SITTING ON SIDE OF BED - STEP 1: Does the patient complete the activity by him/herself with no assistance (physical, verbal/nonverbal cueing, setup/clean-up)? No. LYING TO SITTING ON SIDE OF BED - STEP 2: Does the patient need only setup/clean-up assistance from one helper? No. LYING TO SITTING ON SIDE OF BED - STEP 3: Does the patient need only verbal/nonverbal cueing or touching/steadying/contact guard assistance fro m one helper? Yes. 1. [id number] ADMISSION PERFORMANCE: Supervision or touching assistance CODE: 04 SIT TO STAND: SIT TO STAND - STEP 1: Does the patient complete the activity by him/herself with no assistance (physical, verbal/nonverbal cueing, setup/clean-up)? No. SIT TO STAND - STEP 2: Does the patient need only setup/clean-up assistance from one helper? No. SIT TO STAND - STEP 3: Does the patient need only verbal/nonverbal cueing or touching/steadying/contact guard assistance fro m one helper? Yes. 1. [id number] ADMISSION PERFORMANCE: Supervision or touching assistance CODE: 04 TRANSFERS: BED, CHAIR: CHAIR/[id number] TRANSFER - STEP 1: Does the patient complete the activity by him/herself with no assistance (physical, verbal/nonverbal cueing, setup/clean-up)? No. CHAIR/[id number] TRANSFER - STEP 2: Does the patient need only setup/clean-up assistance from one helper? No. CHAIR/[id number] TRANSFER - STEP 3: Does the patient need only verbal/nonverbal cueing or touching/steadying/contact guard assistance fro m one helper? Yes. 1. [id number] ADMISSION PERFORMANCE: Supervision or touching assistance CODE: 04 TRANSFER TOILET: TOILET TRANSFER - STEP 1: Does the patient complete the activity by him/herself with no assistance (physical, verbal/nonverbal cueing, setup/clean-up)? No. TOILET TRANSFER - STEP 2: Does the patient need only setup/clean-up assistance from one helper? No. TOILET TRANSFER - STEP 3: Does the patient need only verbal/nonverbal cueing or touching/steadying/contact guard assistance fro m one helper? Yes. 1. [id number] ADMISSION PERFORMANCE: Supervision or touching assistance CODE: 04 TRANSFERS: CAR: Not assessed/no information CODE: - WALK 10 FEET: Not assessed/no information CODE: - 1 STEP (CURB): Not assessed/no information CODE: - PICKING UP OBJECT: Not assessed/no information CODE: - DOES THE PATIENT USE A WHEELCHAIR/SCOOTER? CODE: EXPR WHEEL 50 FEET WITH TWO TURNS: Not assessed/no information CODE: - INDICATE THE TYPE OF WHEELCHAIR/SCOOTER USED: CODE: EXPR WHEEL 150 FEET: Not assessed/no information CODE: - INDICATE THE TYPE OF WHEELCHAIR/SCOOTER USED: CODE: EXPR BLADDER AND BOWEL: H350. BLADDER CONTINENCE (3-DAY ASSESSMENT PERIOD): Always continent (no documented incontinence) CODE: 0 H400. BOWEL CONTINENCE (3-DAY ASSESSMENT PERIOD): Always continent CODE: 0
[2019-05-29] MEDS: PANTOPRAZOLE 40MG TABLET PO SCH (07:14)
[2019-05-29] MEDS: ENOXAPARIN 40 MG/0.4 ML SQ SCH (07:14)
[2019-05-29] MEDS: PROMOD 30 ML DOSE PO SCH ×2 (08:00→20:00)
[2019-05-29] MEDS: NYSTATIN PWDR 100000 UNIT/GM TOP SCH ×2 (08:00→20:03)
[2019-05-29] MEDS: ARFORMOTEROL TARTRATE 15 MCG/2 ML VIAL.NEB NEB SCH ×2 (09:05→20:40)
[2019-05-29] MEDS: IPRATROPIUM BROM 0.5MG/2.5ML NEB PRN (09:05)
[2019-05-29] MEDS: GLIPIZIDE S.A. 5 MG TAB PO SCH ×2 (09:09→17:00)
[2019-05-29] MEDS: LOSARTAN POTASSIUM 50 MG TABLET PO SCH (09:10)
[2019-05-29] MEDS: FE SULF/FA/VIT B COMP & C TAB PO SCH (09:10)
[2019-05-29] MEDS: FLUOXETINE 20 MG CAP PO SCH (09:10)
[2019-05-29] MEDS: CYANOCOBALAMIN 1,000 MCG TAB PO SCH (09:11)
[2019-05-29] MEDS: AMLODIPINE 2.5 MG TAB PO SCH ×2 (09:11→20:00)
[2019-05-29] MEDS: ASPIRIN EC 81 MG TAB PO SCH (09:12)
[2019-05-29] MEDS: PREGABALIN 150 MG CAP PO SCH ×2 (09:12→20:04)
[2019-05-29] MEDS: METFORMIN HCL 500 MG TAB PO SCH ×2 (09:12→17:00)
[2019-05-29] MEDS: FERROUS SULFATE 325 MG TAB PO SCH (09:12)
[2019-05-29] MEDS: INSULIN -REGULAR HUMAN 50 UNIT/0.5 ML ML SQ SCH ×4 (09:12→20:19)
[2019-05-29] MEDS: ATORVASTATIN 20 MG TAB PO SCH (20:04)
[2019-05-29] MEDS: CODEINE 30MG/APAP 300MG TAB PO PRN (21:58)
[2019-05-30] MEDS: PANTOPRAZOLE 40MG TABLET PO SCH (06:50)
[2019-05-30] MEDS: ENOXAPARIN 40 MG/0.4 ML SQ SCH (06:50)
[2019-05-30] MEDS: INSULIN -REGULAR HUMAN 50 UNIT/0.5 ML ML SQ SCH ×4 (07:30→20:47)
[2019-05-30] MEDS: ARFORMOTEROL TARTRATE 15 MCG/2 ML VIAL.NEB NEB SCH ×2 (07:45→20:30)
[2019-05-30] MEDS: IPRATROPIUM BROM 0.5MG/2.5ML NEB PRN (07:45)
[2019-05-30] MEDS: PROMOD 30 ML DOSE PO SCH ×2 (08:00→20:00)
[2019-05-30] MEDS: FLUOXETINE 20 MG CAP PO SCH (08:27)
[2019-05-30] MEDS: FERROUS SULFATE 325 MG TAB PO SCH (08:27)
[2019-05-30] MEDS: METFORMIN HCL 500 MG TAB PO SCH ×2 (08:27→17:10)
[2019-05-30] MEDS: AMLODIPINE 2.5 MG TAB PO SCH ×2 (08:28→20:47)
[2019-05-30] MEDS: LOSARTAN POTASSIUM 50 MG TABLET PO SCH (08:28)
[2019-05-30] MEDS: FE SULF/FA/VIT B COMP & C TAB PO SCH (08:29)
[2019-05-30] MEDS: CYANOCOBALAMIN 1,000 MCG TAB PO SCH (08:29)
[2019-05-30] MEDS: NYSTATIN PWDR 100000 UNIT/GM TOP SCH ×2 (08:29→20:48)
[2019-05-30] MEDS: GLIPIZIDE S.A. 5 MG TAB PO SCH ×2 (08:29→17:10)
[2019-05-30] MEDS: ASPIRIN EC 81 MG TAB PO SCH (08:29)
[2019-05-30] MEDS: PREGABALIN 150 MG CAP PO SCH ×2 (08:30→20:47)
[2019-05-30] MEDS: ATORVASTATIN 20 MG TAB PO SCH (20:48)
[2019-05-31] MEDS: PANTOPRAZOLE 40MG TABLET PO SCH (07:04)
[2019-05-31] MEDS: ENOXAPARIN 40 MG/0.4 ML SQ SCH (07:04)
[2019-05-31] MEDS: ARFORMOTEROL TARTRATE 15 MCG/2 ML VIAL.NEB NEB SCH ×2 (07:45→20:10)
[2019-05-31] MEDS: PROMOD 30 ML DOSE PO SCH ×2 (08:00→19:56)
[2019-05-31] MEDS: NYSTATIN PWDR 100000 UNIT/GM TOP SCH ×2 (08:27→19:53)
[2019-05-31] MEDS: PREGABALIN 150 MG CAP PO SCH ×2 (08:27→19:54)
[2019-05-31] MEDS: FLUOXETINE 20 MG CAP PO SCH (08:27)
[2019-05-31] MEDS: CYANOCOBALAMIN 1,000 MCG TAB PO SCH (08:28)
[2019-05-31] MEDS: LOSARTAN POTASSIUM 50 MG TABLET PO SCH (08:28)
[2019-05-31] MEDS: FERROUS SULFATE 325 MG TAB PO SCH (08:28)
[2019-05-31] MEDS: METFORMIN HCL 500 MG TAB PO SCH ×2 (08:29→17:15)
[2019-05-31] MEDS: FE SULF/FA/VIT B COMP & C TAB PO SCH (08:29)
[2019-05-31] MEDS: GLIPIZIDE S.A. 5 MG TAB PO SCH ×2 (08:30→17:14)
[2019-05-31] MEDS: ASPIRIN EC 81 MG TAB PO SCH (08:30)
[2019-05-31] MEDS: AMLODIPINE 2.5 MG TAB PO SCH ×2 (08:30→19:55)
[2019-05-31] MEDS: INSULIN -REGULAR HUMAN 50 UNIT/0.5 ML ML SQ SCH ×4 (08:31→20:09)
--- NOTE | 2019-05-31 12:46 | FAST ---
ENCOUNTER DATE AND TIME: 05/31/2019 08:00 (CDT) NAME JUSTINA COOPER DATE OF : 1945 DATE OF ADMISSION: 05/17/2019 13:26 (CDT) PHONE: AGE: 73 N# [id number] GENDER: Female ENCOUNTER PHYSICIAN: Dr. Jimenez Agrawal M.D. ADMISSION DIAGNOSIS: - Medically Complex Conditions 17 - Respiratory Disorders - Non-ventilator Dependent (17.52) Pneumonia . EATING: Not assessed/no information CODE: - ORAL HYGIENE: ORAL HYGIENE - STEP 1: Does the patient complete the activity by him/herself with no assistance (physical, verbal/nonverbal cueing, setup/clean-up)? Yes. 1. [id number] ADMISSION PERFORMANCE: Independent CODE: 06 TOILETING HYGIENE: Not assessed/no information CODE: - BATHING: SHOWER/BATHE SELF - STEP 1: Does the patient complete the activity by him/herself with no assistance (physical, verbal/nonverbal cueing, setup/clean-up)? Yes. 1. [id number] ADMISSION PERFORMANCE: Independent CODE: 06 DRESSING - UPPER BODY: DRESSING - UPPER BODY - STEP 1: Does the patient complete the activity by him/herself with no assistance (physical, verbal/nonverbal cueing, setup/clean-up)? Yes. 1. [id number] ADMISSION PERFORMANCE: Independent CODE: 06 DRESSING - LOWER BODY: DRESSING - LOWER BODY - STEP 1: Does the patient complete the activity by him/herself with no assistance (physical, verbal/nonverbal cueing, setup/clean-up)? Yes. 1. [id number] ADMISSION PERFORMANCE: Independent CODE: 06 PUTTING ON/TAKING OFF FOOTWEAR: FOOTWEAR - STEP 1: Does the patient complete the activity by him/herself with no assistance (physical, verbal/nonverbal cueing, setup/clean-up)? Yes. 1. [id number] ADMISSION PERFORMANCE: Independent CODE: 06 DOES THE PATIENT USE A WHEELCHAIR/SCOOTER? CODE: EXPR INDICATE THE TYPE OF WHEELCHAIR/SCOOTER USED: CODE: EXPR INDICATE THE TYPE OF WHEELCHAIR/SCOOTER USED: CODE: EXPR BLADDER AND BOWEL: CODE: EXPR CODE: EXPR SIGNATURE PANEL: The following modified sections: 1. [id number] Admission Performance, 1. [id number] Admission Performance, 1. [id number] Admission Performance, 1. [id number] Admission Performance, 1. [id number] Admission Performance were [electronically] signed by OMARI Larsen on FriMay 31 2019 12:46:27 GMT-0500 (Central Daylight Time)
--- NOTE | 2019-05-31 17:16 | R.PN ---
ENCOUNTER DATE AND TIME: 05/31/2019 17:12 (CDT) NAME JUSTINA COOPER DATE OF : 1945 DATE OF ADMISSION: 05/17/2019 13:26 (CDT) Pneumonia CHIEF COMPLAINT: Debility and pneumonia SUBJECTIVE: Pt denied any depression. Pt denied any Shortness of Breath. Patient states that pain is under control. Ambulated 1250', with independence using a rolling walker. Requires constant verbal encouragement. UP and down 20 steps with independence. Self-propelled wheelchair 500' with independence. WBC 9.3, Hgb 9.6, prealbumin 18.5, glucose 134 to 255. VITAL SIGNS Temperature: 99.0 F SBP/DBP: 139/65 Pulse: 90 Resp: 16 MEDICATION ALLERGIES: Carbamazapine Iodine ENVIRONMENTAL ALLERGIES: None Known - Substance Allergies None Known - Other Allergies None Known NURSING: - Shower allowing shower ACTIVITIES OOB only with supervision THERAPIES: - Dietary and Nutrition Adequate Nutrition. Nutritional Education. Nutritional Supplements. PHYSICAL EXAM - Gen Alert and awake Lying in bed No apparent distress Oriented to: person, time, and place - Skin No breakdown No abnormalities - Eyes No abnormalities - Neck No abnormalities No cervical adenopathy - CVS RRR - Chest No abnormalities - Resp Clear to auscultation - Abd Soft - GI Non distended Deferred - No abnormalities - Ext No significant edema - MSK 4/5 weakness in both lower extremities. - Neuro No focal deficits - Psych No abnormalities ASSESSMENT: Pt. is a 73 yo Right-handed white female.On 05/08/2019 she was admitted to [facility] with diagno sis Pneumonia .Her impairment category is Medically Complex Conditions 17 - Respiratory Di sorders - Non-ventilator Dependent (17.52).Pre-morbidly, Pt. was independent/mod-I in Transfers Contr ol, Locomotion, and Self-Care; and she had good Balance, Safety Awareness, Sphincter Control, and Com munication.Currently, she has deficits of Transfers Control, Locomotion, Safety Awareness, and Self-C are.Pt. is now referred to [facility] for acute in-patient rehabilitation in [facility] to maximize patient's functional independence in activities of daily living, strength, ROM, and mobility.- Rehab Goal Patient has realistic goal of being discharged at assistance level 6-Larisa to reside at Home with Fam vidhi/Relatives. MDM/PLAN: - Physical Therapy Gait dysfunction - to improve, our physical therapists will perform initial evaluation of pt's statu s upon admission and devise an individualized program for Gait Training, and Wheel Chair mobility Inability to transfer - to improve, our physical therapists will perform initial evaluation of pt's status upon admission and devise an individualized program for Bed mobility Need for home safety evaluation - to improve, our physical therapists will perform initial evaluatio n of pt's status upon admission and devise an individualized program for Home Evaluation Edema - to improve, our physical therapists will perform initial evaluation of pt's status upon admi ssion and devise an individualized program for Elevation Training, and Lymphedema Therapy Need in caregiver upon discharge - to improve, our physical therapists will perform initial evaluati on of pt's status upon admission and devise an individualized program for Caregiver Training New precaution - to improve, our physical therapists will perform initial evaluation of pt's status upon admission and devise an individualized program for Patient precaution education Weakness - to improve, our physical therapists will perform initial evaluation of pt's status upon a dmission and devise an individualized program for Aquatic Therapy, Neuromuscular Reeducation, and Str engthening Achieving independence - to improve, our physical therapists will perform initial evaluation of pt's status upon admission and devise an individualized program for Community Reintegration Activities - Occupational Therapy ADL deficits - to improve, our occupation therapists will perform initial evaluation of pt's status upon admission and devise an individualized program for Bathing, Bed mobility, Community Reintegratio n, Cooking, Dressing, Eating, Fine Motor Skills, Grooming, Homemaking, Kitchen Mobility, Laundry, Pat ient Education, Safety Awareness, Splinting - Positioning, Transfers(Toilet, Tub, Shower), and Wheel Chair Management Need for career guidance technician - to improve, our occupation therapists will perform initial evaluation of pt's status upon admission and devise an individualized program for Caregiver Training Weakness - to improve, our occupation therapists will perform initial evaluation of pt's status upon admission and devise an individualized program for Aquatic Therapy, Balance, Endurance, UE ROM, and UE strengthening - Other See attached MAR (Medication Administration Record) - Diet Type Continue Regular - Diet - Liquid Texture Continue Regular - Tube Feed Continue N/A - Diet - Solid Texture Continue Regular - Shower allowing shower FUNCTIONAL STATUS: UPDATED AT WEEKLY TEAM CONFERENCE - Walking Same score based on distance walked: 1(<=50ft) FUNCTIONAL STATUS: - Self-Care A. Eating Ind B. Grooming Ind C. Bathing sup D. Dressing - Upper sup E. Dressing - Lower Damon F. Toileting sup - Sphincter Control G. Bladder control Larisa H. Bowel control Larisa - Transfers Control I. Bed/Chair/Wheelchair sup J. Toilet sup K. Tub/Shower Damon - Locomotion L. Walk/Wheelchair (B) Damon M. Stairs maxA - Communication N. Comprehension (B) sup O. Expression (B) sup - Social Cognition P. Social Interaction Larisa Q. Problem Solving Damon R. Memory sup - Endurance Fair - Balance Poor - Safety Awareness Fair QI SCORES: - Self-Care A. Eating 05-Setup or clean-up assistance B. Oral hygiene 05-Setup or clean-up assistance C. Toileting hygiene 04-Supervision or touching assistance E. Shower/bathe self 10-Not attempted due to environmental limitations F. Upper body dressing 04-Supervision or touching assistance G. Lower body dressing 88-Not attempted due to medical condition or safety concerns H. Putting on/taking off footwear 88-Not attempted due to medical condition or safety concerns - Mobility A. Roll left and right 04-Supervision or touching assistance B. Sit to lying 04-Supervision or touching assistance C. Lying to sitting on side of bed 04-Supervision or touching assistance D. Sit to stand 04-Supervision or touching assistance E. Chair/trf-nb-woioi transfer 04-Supervision or touching assistance F. Toilet transfer 04-Supervision or touching assistance G. Car transfer 10-Not attempted due to environmental limitations I. Walk 10 feet 04-Supervision or touching assistance J. Walk 50 feet with two turns 88-Not attempted due to medical condition or safety concerns K. Walk 150 feet 88-Not attempted due to medical condition or safety concerns L. Walking 10 feet on uneven surfaces 88-Not attempted due to medical condition or safety concerns M. 1 step (curb) 88-Not attempted due to medical condition or safety concerns N. 4 steps 88-Not attempted due to medical condition or safety concerns O. 12 steps 88-Not attempted due to medical condition or safety concerns P. Picking up object 88-Not attempted due to medical condition or safety concerns - Bladder and Bowel Bladder continence 0-Always continent Bowel continence 0-Always continent - Endurance Poor - Balance Poor - Safety Awareness Poor CURRENT FUNC. DEFICITS: Self-Care, Mobility, Endurance, Balance, and Safety Awareness SIGNATURE PANEL: (CDT)
[2019-05-31] MEDS: ASCORBIC ACID 500 MG TABLET PO SCH (19:53)
[2019-05-31] MEDS: CRANBERRY FRUIT EXTRACT 200 MG CAP PO SCH (19:53)
[2019-05-31] MEDS: ATORVASTATIN 20 MG TAB PO SCH (20:03)
[2019-05-31 21:56] VITALS: O2SAT 95
[2019-06-01] MEDS: ENOXAPARIN 40 MG/0.4 ML SQ SCH (07:24)
[2019-06-01] MEDS: PREGABALIN 150 MG CAP PO SCH (07:25)
[2019-06-01] MEDS: CRANBERRY FRUIT EXTRACT 200 MG CAP PO SCH (07:25)
[2019-06-01 07:26] VITALS: TEMP 98.5
[2019-06-01] MEDS: GLIPIZIDE S.A. 5 MG TAB PO SCH (07:26)
[2019-06-01] MEDS: LOSARTAN POTASSIUM 50 MG TABLET PO SCH (07:26)
[2019-06-01] MEDS: ASCORBIC ACID 500 MG TABLET PO SCH (07:26)
[2019-06-01] MEDS: CYANOCOBALAMIN 1,000 MCG TAB PO SCH (07:27)
[2019-06-01] MEDS: METFORMIN HCL 500 MG TAB PO SCH (07:27)
[2019-06-01] MEDS: FLUOXETINE 20 MG CAP PO SCH (07:27)
[2019-06-01] MEDS: ASPIRIN EC 81 MG TAB PO SCH (07:28)
[2019-06-01] MEDS: FERROUS SULFATE 325 MG TAB PO SCH (07:28)
[2019-06-01] MEDS: PANTOPRAZOLE 40MG TABLET PO SCH (07:30)
[2019-06-01] MEDS: AMLODIPINE 2.5 MG TAB PO SCH (07:31)
[2019-06-01 07:32] VITALS: BP 141/68
[2019-06-01] MEDS: PROMOD 30 ML DOSE PO SCH (08:00)
[2019-06-01] MEDS ORDERED: VITAMIN D 1000 UNIT TAB PO SCH (08:00)
[2019-06-01] MEDS: NYSTATIN PWDR 100000 UNIT/GM TOP SCH (08:00)
[2019-06-01] MEDS ORDERED: VITAMIN D 5,000 UNIT CAP PO SCH (08:00)
[2019-06-01] MEDS: FE SULF/FA/VIT B COMP & C TAB PO SCH (08:00)
[2019-06-01] MEDS: INSULIN -REGULAR HUMAN 50 UNIT/0.5 ML ML SQ SCH ×2 (08:57→12:08)
--- NOTE | 2019-06-01 14:36 | FAST ---
ENCOUNTER DATE AND TIME: 06/01/2019 08:00 (CDT) NAME JUSTINA COOPER DATE OF : 1945 DATE OF ADMISSION: 05/17/2019 13:26 (CDT) PHONE: AGE: 73 N# [id number] GENDER: Female ENCOUNTER PHYSICIAN: Dr. Jimenez Agrawal M.D. ADMISSION DIAGNOSIS: - Medically Complex Conditions 17 - Respiratory Disorders - Non-ventilator Dependent (17.52) Pneumonia . ROLL LEFT AND RIGHT: ROLL LEFT AND RIGHT - STEP 1: Does the patient complete the activity by him/herself with no assistance (physical, verbal/nonverbal cueing, setup/clean-up)? Yes. 1. [id number] ADMISSION PERFORMANCE: Independent CODE: 06 SIT TO LYING: SIT TO LYING - STEP 1: Does the patient complete the activity by him/herself with no assistance (physical, verbal/nonverbal cueing, setup/clean-up)? Yes. 1. [id number] ADMISSION PERFORMANCE: Independent CODE: 06 LYING TO SITTING: LYING TO SITTING ON SIDE OF BED - STEP 1: Does the patient complete the activity by him/herself with no assistance (physical, verbal/nonverbal cueing, setup/clean-up)? Yes. 1. [id number] ADMISSION PERFORMANCE: Independent CODE: 06 SIT TO STAND: SIT TO STAND - STEP 1: Does the patient complete the activity by him/herself with no assistance (physical, verbal/nonverbal cueing, setup/clean-up)? Yes. 1. [id number] ADMISSION PERFORMANCE: Independent CODE: 06 TRANSFERS: BED, CHAIR: CHAIR/[id number] TRANSFER - STEP 1: Does the patient complete the activity by him/herself with no assistance (physical, verbal/nonverbal cueing, setup/clean-up)? Yes. 1. [id number] ADMISSION PERFORMANCE: Independent CODE: 06 TRANSFER TOILET: TOILET TRANSFER - STEP 1: Does the patient complete the activity by him/herself with no assistance (physical, verbal/nonverbal cueing, setup/clean-up)? Yes. 1. [id number] ADMISSION PERFORMANCE: Independent CODE: 06 TRANSFERS: CAR: CAR TRANSFER - STEP 1: Does the patient complete the activity by him/herself with no assistance (physical, verbal/nonverbal cueing, setup/clean-up)? Yes. 1. [id number] ADMISSION PERFORMANCE: Independent CODE: 06 WALK 10 FEET: WALK 10 FEET - STEP 1: Does the patient complete the activity by him/herself with no assistance (physical, verbal/nonverbal cueing, setup/clean-up)? Yes. 1. [id number] ADMISSION PERFORMANCE: Independent CODE: 06 WALK 50 FEET: WALK 50 FEET - STEP 1: Does the patient complete the activity by him/herself with no assistance (physical, verbal/nonverbal cueing, setup/clean-up)? Yes. 1. [id number] ADMISSION PERFORMANCE: Independent CODE: 06 WALK 150 FEET: WALK 150 FEET - STEP 1: Does the patient complete the activity by him/herself with no assistance (physical, verbal/nonverbal cueing, setup/clean-up)? Yes. 1. [id number] ADMISSION PERFORMANCE: Independent CODE: 06 WALK 10 FEET UNEVEN: Not attempted due to medical condition or safety concerns CODE: 88 1 STEP (CURB): 1 STEP CURB - STEP 1: Does the patient complete the activity by him/herself with no assistance (physical, verbal/nonverbal cueing, setup/clean-up)? Yes. 1. [id number] ADMISSION PERFORMANCE: Independent CODE: 06 4 STEPS: 4 STEPS - STEP 1: Does the patient complete the activity by him/herself with no assistance (physical, verbal/nonverbal cueing, setup/clean-up)? Yes. 1. [id number] ADMISSION PERFORMANCE: Independent CODE: 06 12 STEPS: 12 STEPS - STEP 1: Does the patient complete the activity by him/herself with no assistance (physical, verbal/nonverbal cueing, setup/clean-up)? Yes. 1. [id number] ADMISSION PERFORMANCE: Independent CODE: 06 PICKING UP OBJECT: Not attempted due to medical condition or safety concerns CODE: 88 DOES THE PATIENT USE A WHEELCHAIR/SCOOTER? Q1. DOES THE PATIENT USE A WHEELCHAIR/SCOOTER?: No CODE: 0 INDICATE THE TYPE OF WHEELCHAIR/SCOOTER USED: CODE: EXPR INDICATE THE TYPE OF WHEELCHAIR/SCOOTER USED: CODE: EXPR BLADDER AND BOWEL: CODE: EXPR CODE: EXPR SIGNATURE PANEL: The following modified sections: 1. [id number] Admission Performance, 1. [id number] Admission Performance, 1. [id number] Admission Performance, 1. [id number] Admission Performance, 1. [id number] Admission Performance, 1. [id number] Admission Performance, 1. [id number] Admission Performance, 1. [id number] Admission Performance , 1. [id number] Admission Performance, 1. [id number] Admission Performance, 1. [id number] Admission Performanc e, 1. [id number] Admission Performance, 1. [id number] Admission Performance, Q1. Does the patient use a whe elchair/scooter? were [electronically] signed by Janie Matos PTA on FriJun 01 2019 14:35:41 G MT-0500 (Central Daylight Time)
--- NOTE | 2019-06-01 16:02 | FAST ---
SHIFT START DATE/TIME: 06/01/2019 07:00 (CDT) SHIFT END DATE/TIME: 06/01/2019 19:00 (CDT) NAME JUSTINA COOPER DATE OF : 1945 DATE OF ADMISSION: 05/17/2019 13:26 (CDT) PHONE: AGE: 73 N# [id number] GENDER: Female ENCOUNTER PHYSICIAN: Dr. Jimenez Agrawal M.D. ADMISSION DIAGNOSIS: - Medically Complex Conditions 17 - Respiratory Disorders - Non-ventilator Dependent (17.52) Pneumonia . EATING: EATING - STEP 1: Does the patient complete the activity by him/herself with no assistance (physical, verbal/nonverbal cueing, setup/clean-up)? Yes. 1. [id number] ADMISSION PERFORMANCE: Independent CODE: 06 ORAL HYGIENE: ORAL HYGIENE - STEP 1: Does the patient complete the activity by him/herself with no assistance (physical, verbal/nonverbal cueing, setup/clean-up)? Yes. 1. [id number] ADMISSION PERFORMANCE: Independent CODE: 06 TOILETING HYGIENE: TOILETING HYGIENE - STEP 1: Does the patient complete the activity by him/herself with no assistance (physical, verbal/nonverbal cueing, setup/clean-up)? Yes. 1. [id number] ADMISSION PERFORMANCE: Independent CODE: 06 BATHING: Not assessed/no information CODE: - DRESSING - UPPER BODY: DRESSING - UPPER BODY - STEP 1: Does the patient complete the activity by him/herself with no assistance (physical, verbal/nonverbal cueing, setup/clean-up)? Yes. 1. [id number] ADMISSION PERFORMANCE: Independent CODE: 06 DRESSING - LOWER BODY: DRESSING - LOWER BODY - STEP 1: Does the patient complete the activity by him/herself with no assistance (physical, verbal/nonverbal cueing, setup/clean-up)? Yes. 1. [id number] ADMISSION PERFORMANCE: Independent CODE: 06 PUTTING ON/TAKING OFF FOOTWEAR: FOOTWEAR - STEP 1: Does the patient complete the activity by him/herself with no assistance (physical, verbal/nonverbal cueing, setup/clean-up)? Yes. 1. [id number] ADMISSION PERFORMANCE: Independent CODE: 06 ROLL LEFT AND RIGHT: ROLL LEFT AND RIGHT - STEP 1: Does the patient complete the activity by him/herself with no assistance (physical, verbal/nonverbal cueing, setup/clean-up)? Yes. 1. [id number] ADMISSION PERFORMANCE: Independent CODE: 06 SIT TO LYING: SIT TO LYING - STEP 1: Does the patient complete the activity by him/herself with no assistance (physical, verbal/nonverbal cueing, setup/clean-up)? Yes. 1. [id number] ADMISSION PERFORMANCE: Independent CODE: 06 LYING TO SITTING: LYING TO SITTING ON SIDE OF BED - STEP 1: Does the patient complete the activity by him/herself with no assistance (physical, verbal/nonverbal cueing, setup/clean-up)? Yes. 1. [id number] ADMISSION PERFORMANCE: Independent CODE: 06 SIT TO STAND: SIT TO STAND - STEP 1: Does the patient complete the activity by him/herself with no assistance (physical, verbal/nonverbal cueing, setup/clean-up)? Yes. 1. [id number] ADMISSION PERFORMANCE: Independent CODE: 06 TRANSFERS: BED, CHAIR: CHAIR/[id number] TRANSFER - STEP 1: Does the patient complete the activity by him/herself with no assistance (physical, verbal/nonverbal cueing, setup/clean-up)? Yes. 1. [id number] ADMISSION PERFORMANCE: Independent CODE: 06 TRANSFER TOILET: TOILET TRANSFER - STEP 1: Does the patient complete the activity by him/herself with no assistance (physical, verbal/nonverbal cueing, setup/clean-up)? Yes. 1. [id number] ADMISSION PERFORMANCE: Independent CODE: 06 TRANSFERS: CAR: Not assessed/no information CODE: - WALK 10 FEET: WALK 10 FEET - STEP 1: Does the patient complete the activity by him/herself with no assistance (physical, verbal/nonverbal cueing, setup/clean-up)? No. WALK 10 FEET - STEP 2: Does the patient need only setup/clean-up assistance from one helper? Yes. 1. [id number] ADMISSION PERFORMANCE: Setup or clean-up assistance CODE: 05 WALK 50 FEET: Not assessed/no information CODE: - WALK 150 FEET: Not assessed/no information CODE: - WALK 10 FEET UNEVEN: Not assessed/no information CODE: - 1 STEP (CURB): Not assessed/no information CODE: - PICKING UP OBJECT: Not assessed/no information CODE: - DOES THE PATIENT USE A WHEELCHAIR/SCOOTER? Q1. DOES THE PATIENT USE A WHEELCHAIR/SCOOTER?: No CODE: 0 INDICATE THE TYPE OF WHEELCHAIR/SCOOTER USED: CODE: EXPR INDICATE THE TYPE OF WHEELCHAIR/SCOOTER USED: CODE: EXPR BLADDER AND BOWEL: H350. BLADDER CONTINENCE (3-DAY ASSESSMENT PERIOD): Always continent (no documented incontinence) CODE: 0 H400. BOWEL CONTINENCE (3-DAY ASSESSMENT PERIOD): Always continent CODE: 0 SIGNATURE PANEL: The following modified sections: 1. [id number] Admission Performance, 1. [id number] Admission Performance, 1. QZ8720C Admission Performance, 1. [id number] Admission Performance, 1. [id number] Admission Performance, 1. [id number] Admission Performance, 1. EF0252S Admission Performance, 1. [id number] Admission Performance , 1. [id number] Admission Performance, 1. [id number] Admission Performance, 1. [id number] Admission Performanc e, 1. [id number] Admission Performance, 1. [id number] Admission Performance, Q1. Does the patient use a whe elchair/scooter?, H350. Bladder Continence (3-day assessment period), H400. Bowel Continence (3-day a ssessment period) were [electronically] signed by Roxanne Thorpe C.N.A. on FriJun 01 2019 16:01:23 GM T-0500 (Central Daylight Time)
--- NOTE | 2019-06-01 17:07 | R.PN ---
ENCOUNTER DATE AND TIME: 06/01/2019 17:03 (CDT) NAME JUSTINA COOPER DATE OF : 1945 DATE OF ADMISSION: 05/17/2019 13:26 (CDT) Pneumonia CHIEF COMPLAINT: Debility and pneumonia SUBJECTIVE: Pt denied any depression. Pt denied any Shortness of Breath. Patient states that pain is under control. Ambulated 750', with independence using a rolling walker. Requires constant verbal encouragement. UP and down 20 steps with independence. Self-propelled wheelchair 500' with independence. WBC 9.3, Hgb 9.6, prealbumin 18.5, glucose 161 to 218. VITAL SIGNS Temperature: 98.5 F SBP/DBP: 141/68 Pulse: 73 Resp: 16 MEDICATION ALLERGIES: Carbamazapine Iodine ENVIRONMENTAL ALLERGIES: None Known - Substance Allergies None Known - Other Allergies None Known NURSING: - Shower allowing shower ACTIVITIES OOB only with supervision THERAPIES: - Dietary and Nutrition Adequate Nutrition. Nutritional Education. Nutritional Supplements. PHYSICAL EXAM - Gen Alert and awake Lying in bed No apparent distress Oriented to: person, time, and place - Skin No breakdown No abnormalities - Eyes No abnormalities - Neck No abnormalities No cervical adenopathy - CVS RRR - Chest No abnormalities - Resp Clear to auscultation - Abd Soft - GI Non distended Deferred - No abnormalities - Ext No significant edema - MSK 4/5 weakness in both lower extremities. - Neuro No focal deficits - Psych No abnormalities ASSESSMENT: Pt. is a 73 yo Right-handed white female.On 05/08/2019 she was admitted to [facility] with diagno sis Pneumonia .Her impairment category is Medically Complex Conditions 17 - Respiratory Di sorders - Non-ventilator Dependent (17.52).Pre-morbidly, Pt. was independent/mod-I in Transfers Contr ol, Locomotion, and Self-Care; and she had good Balance, Safety Awareness, Sphincter Control, and Com munication.Currently, she has deficits of Transfers Control, Locomotion, Safety Awareness, and Self-C are.Pt. is now referred to [facility] for acute in-patient rehabilitation in [facility] to maximize patient's functional independence in activities of daily living, strength, ROM, and mobility.- Rehab Goal Patient has realistic goal of being discharged at assistance level 6-Larisa to reside at Home with Fam vidhi/Relatives. MDM/PLAN: - Physical Therapy Gait dysfunction - to improve, our physical therapists will perform initial evaluation of pt's statu s upon admission and devise an individualized program for Gait Training, and Wheel Chair mobility Inability to transfer - to improve, our physical therapists will perform initial evaluation of pt's status upon admission and devise an individualized program for Bed mobility Need for home safety evaluation - to improve, our physical therapists will perform initial evaluatio n of pt's status upon admission and devise an individualized program for Home Evaluation Edema - to improve, our physical therapists will perform initial evaluation of pt's status upon admi ssion and devise an individualized program for Elevation Training, and Lymphedema Therapy Need in caregiver upon discharge - to improve, our physical therapists will perform initial evaluati on of pt's status upon admission and devise an individualized program for Caregiver Training New precaution - to improve, our physical therapists will perform initial evaluation of pt's status upon admission and devise an individualized program for Patient precaution education Weakness - to improve, our physical therapists will perform initial evaluation of pt's status upon a dmission and devise an individualized program for Aquatic Therapy, Neuromuscular Reeducation, and Str engthening Achieving independence - to improve, our physical therapists will perform initial evaluation of pt's status upon admission and devise an individualized program for Community Reintegration Activities - Occupational Therapy ADL deficits - to improve, our occupation therapists will perform initial evaluation of pt's status upon admission and devise an individualized program for Bathing, Bed mobility, Community Reintegratio n, Cooking, Dressing, Eating, Fine Motor Skills, Grooming, Homemaking, Kitchen Mobility, Laundry, Pat ient Education, Safety Awareness, Splinting - Positioning, Transfers(Toilet, Tub, Shower), and Wheel Chair Management Need for residential care officer - to improve, our occupation therapists will perform initial evaluation of pt's status upon admission and devise an individualized program for Caregiver Training Weakness - to improve, our occupation therapists will perform initial evaluation of pt's status upon admission and devise an individualized program for Aquatic Therapy, Balance, Endurance, UE ROM, and UE strengthening - Other See attached MAR (Medication Administration Record) - Diet Type Continue Regular - Diet - Liquid Texture Continue Regular - Tube Feed Continue N/A - Diet - Solid Texture Continue Regular - Shower allowing shower FUNCTIONAL STATUS: UPDATED AT WEEKLY TEAM CONFERENCE - Walking Same score based on distance walked: 1(<=50ft) FUNCTIONAL STATUS: - Self-Care A. Eating Ind B. Grooming Ind C. Bathing sup D. Dressing - Upper sup E. Dressing - Lower Damon F. Toileting sup - Sphincter Control G. Bladder control Larisa H. Bowel control Larisa - Transfers Control I. Bed/Chair/Wheelchair sup J. Toilet sup K. Tub/Shower Damon - Locomotion L. Walk/Wheelchair (B) Damon M. Stairs maxA - Communication N. Comprehension (B) sup O. Expression (B) sup - Social Cognition P. Social Interaction Larisa Q. Problem Solving Damon R. Memory sup - Endurance Fair - Balance Poor - Safety Awareness Fair QI SCORES: - Self-Care A. Eating 05-Setup or clean-up assistance B. Oral hygiene 05-Setup or clean-up assistance C. Toileting hygiene 04-Supervision or touching assistance E. Shower/bathe self 10-Not attempted due to environmental limitations F. Upper body dressing 04-Supervision or touching assistance G. Lower body dressing 88-Not attempted due to medical condition or safety concerns H. Putting on/taking off footwear 88-Not attempted due to medical condition or safety concerns - Mobility A. Roll left and right 04-Supervision or touching assistance B. Sit to lying 04-Supervision or touching assistance C. Lying to sitting on side of bed 04-Supervision or touching assistance D. Sit to stand 04-Supervision or touching assistance E. Chair/rkx-kf-grdwn transfer 04-Supervision or touching assistance F. Toilet transfer 04-Supervision or touching assistance G. Car transfer 10-Not attempted due to environmental limitations I. Walk 10 feet 04-Supervision or touching assistance J. Walk 50 feet with two turns 88-Not attempted due to medical condition or safety concerns K. Walk 150 feet 88-Not attempted due to medical condition or safety concerns L. Walking 10 feet on uneven surfaces 88-Not attempted due to medical condition or safety concerns M. 1 step (curb) 88-Not attempted due to medical condition or safety concerns N. 4 steps 88-Not attempted due to medical condition or safety concerns O. 12 steps 88-Not attempted due to medical condition or safety concerns P. Picking up object 88-Not attempted due to medical condition or safety concerns - Bladder and Bowel Bladder continence 0-Always continent Bowel continence 0-Always continent - Endurance Poor - Balance Poor - Safety Awareness Poor CURRENT FUNC. DEFICITS: Self-Care, Mobility, Endurance, Balance, and Safety Awareness SIGNATURE PANEL: (CDT)
== END 2019-06-01 15:40 | disposition home health service (06) | DRG 194 ==
LOC: 5TH 13:26
PROVIDERS: ADMIT Psychiatry & Neurology Neurology with Special Qualifications in Child Neurology; ATTEND Psychiatry & Neurology Neurology with Special Qualifications in Child Neurology
DX: J18.9 Pneumonia, unspecified organism (principal); I48.20 Chronic atrial fibrillation, unspecified; R53.81 Other malaise; J44.9 Chronic obstructive pulmonary disease, unspecified; R09.02 Hypoxemia; E11.9 Type 2 diabetes mellitus without complications; I10 Essential (primary) hypertension; Z90.49 Acquired absence of other specified parts of digestive tract
CPT/HCPCS: 36415; 71045; 80048; 80076; 81001; 82040; 82947; 83735; 84134; 85025; 87086; 87088; 92507; 92523; 92526; 97110; 97112; 97116; 97161; 97530; 97542; J1650; J7605

== ENCOUNTER 2019-08-04 15:27 | Observation (INO) | payer OTHER ==
--- NOTE | 2019-08-04 16:38 | RAD REPORT ---
EXAM DESCRIPTION: RAD - Chest Single View - 08/04/2019 4:29 pm CLINICAL HISTORY: chest pain, sob COMPARISON: Portable May 23 TECHNIQUE: AP portable chest image was obtained 08/04/2019 4:29 pm . FINDINGS: No peripheral mass or consolidation. No failure or volume overload. Prominent interstitial pattern matches comparison. Pericardial fat pads are present. Heart and vasculature are normal. No m easurable pleural effusion and no pneumothorax. No acute bony abnormality seen. No acute aortic findi ngs suspected. IMPRESSION: No acute cardiopulmonary process. No significant change from comparison.
[2019-08-04 16:44] LABS: Urine Blood TRACE (NEG); Urine Glucose 2+ (NEG); Urine Protein NEGATIVE (NEG); Urine Specific Gravity 1.025 (1.005-1.030); Urine pH 5.5 (5.0-7.0)
[2019-08-04 16:47] LABS: Absolute Lymphocytes (CBC) 3.7 K/uL (0.7-4.9); Basophils % 0.8 % (0-1.3); Hematocrit 40.1 % (36.0-45.0); Lymphocytes % 35.1 % (15.3-44.8); MPV 8.5 fL (7.6-11.3)
[2019-08-04 16:49] LABS: Protime INR 0.86
[2019-08-04 17:09] LABS: ALT/SGPT 29 U/L (12-78); AST/SGOT 14 U/L (15-37); Albumin 3.8 g/dL (3.4-5.0); Alkaline Phosphatase 119 U/L (45-117); BUN Blood Urea Nitrogen 13 mg/dL (7-18); Bicarbonate 26 mmol/L (21-32); Bilirubin Direct < 0.1 mg/dL (0-0.2); Bilirubin Total 0.2 mg/dL (0.2-1.0); Glucose Level 205 mg/dL (74-106); Magnesium 1.9 mg/dL (1.8-2.4); NT PRO-BNP 23 pg/mL (<125); Potassium 3.9 mmol/L (3.5-5.1); Protein, Total 7.8 g/dL (6.4-8.2); Sodium Level 138 mmol/L (136-145); Troponin (Emerg Dept Use Only) < 0.02 ng/mL (0.0-0.045)
--- NOTE | 2019-08-04 17:26 | EDPHYS ---
Physician Documentation [facility] Name: Kiley Ortega Age: 74 yrs Sex: Female : 1945 Arrival Date: 08/04/2019 Time: 15:29 Bed 5 Private MD: ED Physician Isael Mondragon HPI: 08/03 16:13 This 74 yrs old Female presents to ER via EMS with complaints of Chest Pain > jmm 30 y/o. 16:13 The patient or guardian reports chest pain that is located primarily in the anterior jmm chest wall. Onset: gradually. The pain does not radiate. The chest pain is described as aching. Duration: The patient or guardian reports a single episode, that is still ongoing. This is a 74 year old female with a history of copd that presents to the ED with complaints of cough, bladder pain, dysuria, chest pain. Patient states she was recently released from ICU with pneumonia. Patient recently prescribed Bactrim for a UTI. . Historical: - Allergies: 15:39 Iodinated Contrast Media - IV Dye; em 15:39 Tegretol; em 15:39 trelegy; em - Home Meds: 15:39 tylenol 500 mg twice a day [Active]; amlodipine 10 mg tab for Hypertension [Active]; em aspirin 81 mg Oral TbEC 1 tab once daily [Active]; atorvastatin 20 mg Oral tab 1 tab once daily [Active]; Benadryl 25 mg Oral cap 1 cap twice a day [Active]; fluxetine 40 mg once daily [Active]; Glimepiride Oral [Active]; Insulin: Humalog Sub-Q [Active]; Januvia Oral [Active]; losartan 100 mg Oral tab 1 tab once daily for Hypertension [Active]; Lyrica 300mg Oral 1 cap 2 times per day for Diabetic Peripheral Neuropathy [Active]; metformin 500 mg Oral tab 2 tabs 2 times per day for Type 2 Diabetes Mellitus [Active]; omeprazole 40 mg Oral cpDR 1 cap once daily for Gastroesophageal reflux [Active]; - PMHx: 15:39 breast cancer-right side; cervical cancer; COPD; Diabetes - NIDDM; Hypertension; em Myopathy; neuropathy; TIA; - PSHx: 15:39 Hysterectomy; LYMPHNODES, RIGHT; Appendectomy; Cholecystectomy; em - Immunization history:: Adult Immunizations up to date. - Social history:: Smoking status: Patient denies any tobacco usage or history of. ROS: 16:13 Abdomen/GI: Negative for abdominal pain, nausea, vomiting, diarrhea, and constipation, jmm Back: Negative for injury and pain. 16:13 Constitutional: Positive for body aches, fatigue. 16:13 Cardiovascular: Positive for chest pain. 16:13 Respiratory: Positive for cough. 16:13 All other systems are negative. Exam: 16:13 Constitutional: This is a well developed, well nourished patient who is awake, alert, jmm and in no acute distress. Head/Face: atraumatic. Eyes: EOMI, no conjunctival erythema appreciated ENT: Moist Mucus Membranes Neck: Trachea midline, Supple Chest/axilla: Normal chest wall appearance and motion. Cardiovascular: Regular rate and rhythm. No edema appreciated Respiratory: Normal respirations, no respiratory distress appreciated Abdomen/GI: Non distended, soft Back: Normal ROM Skin: General appearance color normal MS/ Extremity: Moves all extremities, no obvious deformities appreciated, no edema noted to the lower extremities Neuro: Awake and alert, normal gait Psych: Behavior is normal, Mood is normal, Patient is cooperative and pleasant Vital Signs: 15:30 BP 147 / 62; Pulse 88; Resp 19; Temp 98.3; Pulse Ox 96% on R/A; Weight 84.82 kg; Height em 5 ft. 2 in. (157.48 cm); Pain 0/10; 16:30 BP 145 / 64; Pulse 80; Resp 18; Pulse Ox 98% on R/A; em 17:30 BP 142 / 61; Pulse 72; Resp 16; Pulse Ox 99% on R/A; em 19:10 BP 141 / 75; Pulse 70; Resp 19; Temp 98; Pulse Ox 99% ; rr5 20:00 BP 155 / 89; Pulse 79; Resp 18; Pulse Ox 98% on R/A; rr5 15:30 Body Mass Index 34.20 (84.82 kg, 157.48 cm) em MDM: 15:50 Patient medically screened. [facility] 17:19 Data reviewed: vital signs, nurses notes, lab test result(s), radiologic studies, plain [facility] films. ED course: I left a voicemail with Dr. Llanos. 17:23 ED course: I discussed the patient with Dr. Martínez whom accepted admission. . [facility] 08/03 15:51 Order name: Basic Metabolic Panel [facility] 08/03 15:51 Order name: CBC with Diff; Complete Time: 17:08 [facility] 08/03 15:51 Order name: LFT's; Complete Time: 17:14 [facility] 08/03 15:51 Order name: Magnesium; Complete Time: 17:14 [facility] 08/03 15:51 Order name: NT PRO-BNP; Complete Time: 17:14 [facility] 08/03 15:51 Order name: PT-INR; Complete Time: 17:08 [facility] 08/03 15:51 Order name: Troponin (emerg Dept Use Only); Complete Time: 17:14 [facility] 08/03 15:51 Order name: Lactate; Complete Time: 17:14 [facility] 08/03 15:51 Order name: Procalcitonin; Complete Time: 17:38 [facility] 08/03 15:51 Order name: Blood Culture Adult (2) [facility] 08/03 15:52 Order name: COVID-19; Complete Time: 19:41 [facility] 08/03 15:52 Order name: Basic Metabolic Panel; Complete Time: 17:14 [facility] 08/03 16:16 Order name: Urine Dipstick--Ancillary (enter results); Complete Time: 17:08 08/03 17:17 Order name: Urine Culture [facility] 08/03 15:51 Order name: XRAY Chest (1 view); Complete Time: 16:40 [facility] 08/03 15:51 Order name: EKG; Complete Time: 15:53 [facility] 08/03 15:51 Order name: Cardiac monitoring; Complete Time: 16:43 [facility] 08/03 15:51 Order name: EKG - Nurse/Tech; Complete Time: 16:43 [facility] 08/03 15:51 Order name: IV Saline Lock; Complete Time: 16:43 [facility] 08/03 15:51 Order name: Labs collected and sent; Complete Time: 16:43 [facility] 08/03 15:51 Order name: O2 Per Protocol; Complete Time: 16:42 [facility] 08/03 15:51 Order name: O2 Sat Monitoring; Complete Time: 16:42 [facility] 08/03 17:29 Order name: Basic Metabolic Panel [facility] 08/03 17:29 Order name: Basic Metabolic Panel [facility] 08/03 17:30 Order name: Heart Healthy [facility] 08/03 17:30 Order name: CBC with Automated Diff [facility] 08/03 17:30 Order name: CBC with Automated Diff [facility] 08/03 20:04 Order name: Lactate Sepsis 2 HR Follow-up; Complete Time: 20:53 [facility] 08/03 15:52 Order name: Urine Dipstick-Ancillary (obtain specimen); Complete Time: 16:42 [facility] Administered Medications: 17:31 Drug: Rocephin - (cefTRIAXone) 1 grams Route: IVPB; Infused Over: 30 mins; Site: left em forearm; 18:00 Follow up: IV Status: Completed infusion em 17:32 Drug: NS 0.9% 1000 ml Route: IV; Rate: 150 ml/hr; Site: left forearm; em 20:10 Follow up: Response: No adverse reaction; IV Status: Infusion continued upon admission; rr5 IV Intake: 150ml Disposition: 08/04/19 17:25 Hospitalization ordered by Shivani Anguiano for Observation. Preliminary diagnosis are Dehydration, Urinary tract infection, site not specified. - Bed requested for Telemetry/MedSurg (observation). - Status is Observation. sv - Condition is Stable. - Problem is new. - Symptoms are unchanged. Addendum: 08/07/2019 07:21 Co-signature as Attending Physician, Isael Mondragon MD. r n Signatures: Dispatcher [employer] [facility] Belkis Sutherland RN RN Slick Escalera PA PA [facility] Patel Isaac RN YUNIOR Isael Mondragon MD MD rn Lasagna, Tonya, RN RN tl1 Chino Gaines RN rr5 Corrections: (The following items were deleted from the chart) 08/03 19:35 17:25 Hospitalization Ordered by Shivani Anguiano MD for Observation. Preliminary tl1 diagnosis is Dehydration; Urinary tract infection, site not specified. Bed requested for Telemetry/MedSurg (observation). Status is Observation. Condition is Stable. Problem is new. Symptoms are unchanged. [facility] 08/04 06:00 08/03 19:35 08/04/2019 17:25 Hospitalization Ordered by Shivani Anguiano MD for tl1 Observation. Preliminary diagnosis is Dehydration; Urinary tract infection, site not specified. Bed requested for [facility] ER HOLD. Status is Observation. Condition is Stable. Problem is new. Symptoms are unchanged. tl1 08/04 07:26 06:00 08/04/2019 17:25 Hospitalization Ordered by Shivani Anguiano MD for Observation. sv Preliminary diagnosis is Dehydration; Urinary tract infection, site not specified. Bed requested for Telemetry/MedSurg (observation). Status is Observation. Condition is Stable. Problem is new. Symptoms are unchanged. tl1
--- NOTE | 2019-08-04 17:26 | ER ---
Nurse's Notes [facility] Name: Kiley Ortega Age: 74 yrs Sex: Female : 1945 Arrival Date: 08/04/2019 Time: 15:29 Bed 5 Private MD: Diagnosis: Dehydration;Urinary tract infection, site not specified Presentation: 08/03 15:30 Chief complaint: EMS states: called out for chest pains off and on for several days, em also reports productive cough, pt was seen in the hospital a month ago for pneumonia, also was diagnosed with UTI today and started Bactrim today, had a temp of 99.3, took 1 gram of Tylenol CEMENTER HAND. Coronavirus screen: Surgical mask placed on patient. Patient moved to private room, placed in contact and droplet isolation with eye protection until further assessment. Patient reports a cough. Patient reports shortness of breath or difficulty breathing. Patient reports a measured and/or subjective temperature greater than 100.4F. Patient denies travel on a cruise ship or to a country the [facility] currently lists as an affected area. Patient denies contact with known and/or suspected case of COVID-19. Ebola Screen: Patient negative for fever greater than or equal to 101.5 degrees Fahrenheit, and additional compatible Ebola Virus Disease symptoms Patient denies exposure to infectious person. Patient denies travel to an Ebola-affected area in the 21 days before illness onset. No symptoms or risks identified at this time. Initial Sepsis Screen: Does the patient meet any 2 criteria? No. Patient's initial sepsis screen is negative. Does the patient have a suspected source of infection? Yes: Productive cough/pneumonia. Risk Assessment: Do you want to hurt yourself or someone else? Patient reports no desire to harm self or others. Onset of symptoms was August 04, 2019. 15:30 Method Of Arrival: EMS: [facility] em 15:30 Acuity: SHELLEY 3 em Historical: - Allergies: 15:39 Iodinated Contrast Media - IV Dye; em 15:39 Tegretol; em 15:39 trelegy; em - Home Meds: 15:39 tylenol 500 mg twice a day [Active]; amlodipine 10 mg tab for Hypertension [Active]; em aspirin 81 mg Oral TbEC 1 tab once daily [Active]; atorvastatin 20 mg Oral tab 1 tab once daily [Active]; Benadryl 25 mg Oral cap 1 cap twice a day [Active]; fluxetine 40 mg once daily [Active]; Glimepiride Oral [Active]; Insulin: Humalog Sub-Q [Active]; Januvia Oral [Active]; losartan 100 mg Oral tab 1 tab once daily for Hypertension [Active]; Lyrica 300mg Oral 1 cap 2 times per day for Diabetic Peripheral Neuropathy [Active]; metformin 500 mg Oral tab 2 tabs 2 times per day for Type 2 Diabetes Mellitus [Active]; omeprazole 40 mg Oral cpDR 1 cap once daily for Gastroesophageal reflux [Active]; - PMHx: 15:39 breast cancer-right side; cervical cancer; COPD; Diabetes - NIDDM; Hypertension; em Myopathy; neuropathy; TIA; - PSHx: 15:39 Hysterectomy; LYMPHNODES, RIGHT; Appendectomy; Cholecystectomy; em - Immunization history:: Adult Immunizations up to date. - Social history:: Smoking status: Patient denies any tobacco usage or history of. Screenin:30 Abuse screen: Denies threats or abuse. Nutritional screening: No deficits noted. em Tuberculosis screening: No symptoms or risk factors identified. Fall Risk None identified. Assessment: 15:30 General: Appears in no apparent distress. comfortable, Behavior is calm, cooperative, em appropriate for age, Reports fever for 12-24 hours. Pain: Complains of pain in chest Pain does not radiate. Quality of pain is described as sharp, shooting, Pain began "few days ago" Is episodic. Neuro: Level of Consciousness is awake, alert, obeys commands, Oriented to person, place, time, situation, Appropriate for age. Cardiovascular: Capillary refill < 3 seconds Patient's skin is warm and dry. Respiratory: Reports cough that is productive, Airway is patent Respiratory effort is even, unlabored, Respiratory pattern is regular, symmetrical. : Reports burning with urination. Derm: Skin is intact, is fragile, is thin, Skin is pink, warm \\T\\ dry. Musculoskeletal: Capillary refill < 3 seconds, Range of motion: intact in all extremities. 16:52 Reassessment: Patient appears in no apparent distress at this time. Patient and/or em family updated on plan of care and expected duration. Pain level reassessed. Patient is alert, oriented x 3, equal unlabored respirations, skin warm/dry/pink. 17:17 Reassessment: Decision to admit patient by JENNIFER Graham and Dr. Mondragon. Spoke with elli Khalil in lab to send covid swab to [facility] at this time. 17:43 Reassessment: Patient appears in no apparent distress at this time. Patient and/or em family updated on plan of care and expected duration. Pain level reassessed. Patient is alert, oriented x 3, equal unlabored respirations, skin warm/dry/pink. 19:05 General: Appears in no apparent distress. comfortable, Behavior is calm, cooperative, rr5 appropriate for age, awaiting for room assignment for admission. 19:05 Neuro: Level of Consciousness is awake, alert, obeys commands, Oriented to person, rr5 place, time, situation, Appropriate for age. Cardiovascular: Reports chest pain, Capillary refill < 3 seconds Patient's skin is warm and dry. Respiratory: Airway is patent Respiratory effort is even, unlabored, Respiratory pattern is regular, symmetrical. GI: No signs and/or symptoms were reported involving the gastrointestinal system. : Reports burning with urination, urinary frequency. EENT: No signs and/or symptoms were reported regarding the EENT system. Derm: Skin is fragile, is thin, Skin temperature is warm. Musculoskeletal: Circulation, motion, and sensation intact. Capillary refill < 3 seconds. 20:10 Reassessment: Patient appears in no apparent distress at this time. No changes from rr5 previously documented assessment. Patient is alert, oriented x 3, equal unlabored respirations, skin warm/dry/pink. 2004. Vital Signs: 15:30 BP 147 / 62; Pulse 88; Resp 19; Temp 98.3; Pulse Ox 96% on R/A; Weight 84.82 kg; Height em 5 ft. 2 in. (157.48 cm); Pain 0/10; 16:30 BP 145 / 64; Pulse 80; Resp 18; Pulse Ox 98% on R/A; em 17:30 BP 142 / 61; Pulse 72; Resp 16; Pulse Ox 99% on R/A; em 19:10 BP 141 / 75; Pulse 70; Resp 19; Temp 98; Pulse Ox 99% ; rr5 20:00 BP 155 / 89; Pulse 79; Resp 18; Pulse Ox 98% on R/A; rr5 15:30 Body Mass Index 34.20 (84.82 kg, 157.48 cm) em ED Course: 15:29 Patient arrived in ED. em 15:32 Slick Tom PA is PHCP. jmm 15:32 Isael Mondragon MD is Attending Physician. jmm 15:35 Triage completed. em 15:39 Arm band placed on. em 15:39 Patient has correct armband on for positive identification. Placed in gown. Bed in low em position. Call light in reach. Side rails up X2. residential monitor on. Pulse ox on. NIBP on. 15:40 Patel Isaac, YUNIOR is Primary Nurse. em 15:40 Patient maintains SpO2 saturation greater than 95% on room air. em 16:30 XRAY Chest (1 view) In Process Unspecified. EDMS 16:30 Initial lab(s) drawn, by me, sent to lab. Inserted saline lock: 22 gauge in left em forearm, using aseptic technique. Blood collected. 16:30 First set of blood cultures drawn by me. em 16:35 covid swab sent to lab. em 16:45 Second set of blood cultures drawn by me. em 17:24 Shivani Anguiano MD is Hospitalizing Provider. jmm 20:05 No provider procedures requiring assistance completed. Patient admitted, IV remains in rr5 place. intact, No redness/swelling at site. Administered Medications: 17:31 Drug: Rocephin - (cefTRIAXone) 1 grams Route: IVPB; Infused Over: 30 mins; Site: left em forearm; 18:00 Follow up: IV Status: Completed infusion em 17:32 Drug: NS 0.9% 1000 ml Route: IV; Rate: 150 ml/hr; Site: left forearm; em 20:10 Follow up: Response: No adverse reaction; IV Status: Infusion continued upon admission; rr5 IV Intake: 150ml Intake: 20:10 IV: 150ml; Total: 150ml. rr5 20:20 PO: 0ml; Total: 150ml. rr5 Output: 20:20 Stool: 1 (Formed Stool) ; Total: 0ml. rr5 Outcome: 17:25 Decision to Hospitalize by Provider. jmm 20:10 Admitted to ER Hold. Please see [facility] for further documentation. rr5 20:10 Condition: stable 20:10 Instructed on the need for admit. 08/04 07:26 Patient left the ED. sv Signatures: Dispatcher [employer] Belkis England, RN RN Slick Escalera PA PA jmm Munoz, Edgar, RN RN Neena Samayoa RN RN Chino Gaines RN RN rr5
[2019-08-04] MEDS ORDERED: ACETAMINOPHEN 500 MG TAB PO PRN (17:28)
[2019-08-04] MEDS ORDERED: NA CHLORIDE 0.9% 1,000 ML ONE ×2 (17:34→23:51)
[2019-08-04] MEDS ORDERED: CEFTRIAXONE/SWI 1gm 1 GM/10 ML SYR ONE (17:34)
[2019-08-04] MEDS: NA CHLORIDE 0.9% 1,000 ML IV SCH (19:30)
[2019-08-04 22:49] VITALS: BMI 33.3
[2019-08-05] MEDS: NA CHLORIDE 0.9% 1,000 ML IV SCH (04:00)
[2019-08-05 05:37] LABS: Absolute Lymphocytes (CBC) 2.6 K/uL (0.7-4.9); Basophils % 1.3 % (0-1.3); Hematocrit 38.4 % (36.0-45.0); Lymphocytes % 28.1 % (15.3-44.8); MPV 8.4 fL (7.6-11.3); RBC Red Blood Cell Count 4.59 M/uL (3.86-4.86)
[2019-08-05 05:46] LABS: BUN Blood Urea Nitrogen 9 mg/dL (7-18); Bicarbonate 25 mmol/L (21-32); Glucose Level 201 mg/dL (74-106); Potassium 4.2 mmol/L (3.5-5.1); Sodium Level 139 mmol/L (136-145)
[2019-08-05] MEDS: CEFTRIAXONE/SWI 1gm 1 GM/10 ML SYR IVP SCH ×2 (09:24→23:52)
[2019-08-05] MEDS: GLIPIZIDE S.A. 5 MG TAB PO SCH (16:53)
[2019-08-05] MEDS ORDERED: ONDANSETRON 4 MG (ODT) TAB PO PRN (18:37)
[2019-08-05] MEDS ORDERED: ATORVASTATIN 20 MG TAB PO SCH (21:00)
[2019-08-05] MEDS ORDERED: ONDANSETRON 4 MG (ODT) TAB PO SCH (21:00)
[2019-08-05] MEDS: PREGABALIN 150 MG CAP PO SCH (21:07)
--- NOTE | 2019-08-05 21:49 | HP ---
Date of Admission: 08/04/2019 History Of Present Illness: A 74-year-old female with multiple medical problems. She gave me a hist ory of feeling discomfort, achy pain, but she pointed to her anterior abdominal wall area over her ur ine bladder that had made her feel bad and shaky and she came to the emergency room. She was found t o have cystitis with dehydration. She was admitted for that. The patient herself denied any chest p ain or increased shortness of breath to me. She said her symptom that made her come to the emergency room was her abdominal area pain/discomfort. The patient passing urine felt that it is a little bit burning, voiced no other complaints. Review of Systems: Cardiovascular: No palpitations, no dizziness, no chest pain. No other complaints Respiratory: No complaints. Genitourinary: As above. Skeletomuscular: No complaints. Neurological: Fatigue in general, but no new complaints. Gastrointestinal: No complaints. Past Medical History: 1.Type 2 diabetes mellitus with peripheral neuropathy. 2.Hypertension. 3.Hyperlipidemia. 4.COPD. 5.History of cervical cancer. 6.Right breast cancer. 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 Past Surgical History: The patient has had hysterectomy, append[facility], [facility]. Social History: No smoking, alcohol, or IV drug abuse history. Family History: Noncontributory. Medications: Include, 1.Amlodipine 10 mg p.o. daily. 2.Atorvastatin 20 mg p.o. daily. 3.Aspirin 81 mg p.o. daily. 4.Fluoxetine 40 mg p.o. daily. 5.Glimepiride. 6.Metformin 500, two b.i.d. 7.Humalog subcutaneous. 8.Januvia. 9.Losartan 100 mg p.o. daily. 10.Lyrica 300 mg p.o. b.i.d. Allergies: CARBAMAZEPINE AND IODINATED CONTRAST MEDIA. Physical Examination: Vital Signs: Blood pressure 165/56, pulse , temperature 97.7. Heart: Regular rate and rhythm. Chest: Clear to auscultation. Abdomen: Soft, nontender, nondistended. Bowel sounds normoactive. Extremities: No edema or cyanosis. Peripheral pulses are felt. Neurological: Alert, oriented, nonfocal, grossly intact. Laboratory Data: Chest x-ray, no acute pathology. White cell count 10.6, hemoglobin 12.7, hematocri t 40.1, and platelets 297. Chemistry noted GFR more than 90. Blood sugar fingersticks noted. Lacti c acid is high at 2.9. Urinalysis; positive for blood, positive nitrite and esterase. Assessment And Plan: Cystitis with hematuria with blood in the urine microscopically along with elev ated lactic acid. I think the patient has sepsis from the cystitis. The patient is being admitted, put her on IV ceftriaxone. Continue her home medicines. Monitor her blood sugar and put her on regu lar insulin sliding scale and continue home medicines for chronic medical illnesses. We will put the patient also on IV fluids of normal saline at 100 per hour, an element of volume depletion dehydrati on is also considered. Look admit order for details. LÁZARO/VIJAY Voice ID: [id number]
[2019-08-06] MEDS: ONDANSETRON 4 MG/2 ML VIAL IV PRN ×3 (00:01→12:44)
[2019-08-06] MEDS: NA CHLORIDE 0.9% 1,000 ML IV SCH ×3 (00:01→09:18)
[2019-08-06 05:35] LABS: Absolute Lymphocytes (CBC) 2.5 K/uL (0.7-4.9); Basophils % 1.3 % (0-1.3); Hematocrit 33.7 % (36.0-45.0); Lymphocytes % 31.9 % (15.3-44.8); MPV 8.7 fL (7.6-11.3); RBC Red Blood Cell Count 4.03 M/uL (3.86-4.86)
[2019-08-06 05:47] LABS: BUN Blood Urea Nitrogen 7 mg/dL (7-18); Bicarbonate 26 mmol/L (21-32); Glucose Level 201 mg/dL (74-106); Potassium 3.3 mmol/L (3.5-5.1); Sodium Level 141 mmol/L (136-145)
[2019-08-06] MEDS ORDERED: D50W 25 GM/50 ML SYRINGE/VIAL IV PRN ×2 (07:07→07:13)
[2019-08-06] MEDS ORDERED: GLUCAGON 1 MG/VIAL IM PRN ×2 (07:07→07:13)
[2019-08-06] MEDS ORDERED: INSULIN -REGULAR HUMAN 50 UNIT/0.5 ML ML SQ SCH (07:30)
[2019-08-06] MEDS ORDERED: ASPIRIN EC 81 MG TAB PO SCH (09:00)
[2019-08-06] MEDS: PREGABALIN 150 MG CAP PO SCH (09:10)
[2019-08-06] MEDS: INSULIN -REGULAR HUMAN 50 UNIT/0.5 ML ML SQ SCH ×3 (09:10→16:30)
[2019-08-06] MEDS: CEFTRIAXONE/SWI 1gm 1 GM/10 ML SYR IVP SCH (09:10)
[2019-08-06] MEDS: GLIPIZIDE S.A. 5 MG TAB PO SCH (09:10)
[2019-08-06 10:59] VITALS: O2SAT 92
[2019-08-06 16:50] VITALS: BP 132/54; TEMP 97.8
--- NOTE | 2019-08-06 18:44 | RAD REPORT ---
EXAM DESCRIPTION: RAD - Chest Single View - 08/05/2019 11:38 pm CLINICAL HISTORY: 74 years Female PICC placement COMPARISON: 05/12/2019. FINDINGS: The right PICC tip projects over the SVC. The cardiomediastinal silhouette appears unremarkable. No consolidating infiltrates or pleural effusions. No pneumothorax. IMPRESSION: The right PICC tip projects over the SVC. Electronically signed by: Macario Griffin MD 08/05/2019 11:14 PM CDT Due to temporary technical issues with the PACS/Fluency reporting system, reports are being signed by the in house radiologist without review as a courtesy to ensure prompt reporting. The interpreting r adiologist is fully responsible for the content of the report.
--- NOTE | 2019-08-07 01:47 | DS ---
Date of Discharge: 08/06/2019 History: A 74-year-old female who was admitted to the hospital because of volume depletion, dehydrat ion along with cystitis. Past Medical History: As per admit note. Social History: As per admit note. Family History: As per admit note. Medications: As per admit note. Allergies: PER ADMIT NOTE. Physical Examination: As per admit note. Diagnostic Data: As per admit note. Hospital Course: The patient was admitted under observation. She was put on IV ceftriaxone after ur ine and blood were taken for cultures. She was put on IV antibiotics, put her on regular insulin sli ding scale for her diabetes and continue the rest of her home medications. Urine grew E coli, which is sensitive to many oral antibiotics including Augmentin. The patient felt much better and had no c omplaints and no abdominal pain and she remained without fever. Her temperature today is 98 degrees, blood pressure 145/65, pulse of 80. I think with the patient doing well, she can be discharged home on oral antibiotics after we also repleted her dehydration with IV normal saline. The patient was d oing well. She was discharged on Augmentin 500 one p.o. b.i.d. for the next 7 days and to follow up with me. Look discharge order for details. MFS/MODL Voice ID: [id number] Report ID: [id number]
== END 2019-08-06 16:57 | disposition home or self-care (01) ==
LOC: ER 15:27 → INTOOBSV 17:27 → OBSVTOIN 17:27 → ERHOLD 17:27 → 4TH 08-05 06:12
PROVIDERS: ADMIT Internal Medicine; ATTEND Internal Medicine
DX: N30.91 Cystitis, unspecified with hematuria (principal); B96.20 Unspecified Escherichia coli [E. coli] as the cause of diseases classified elsewhere; E86.0 Dehydration; E86.9 Volume depletion, unspecified; R74.0 Nonspecific elevation of levels of transaminase and lactic acid dehydrogenase [LDH]; E11.40 Type 2 diabetes mellitus with diabetic neuropathy, unspecified; E78.5 Hyperlipidemia, unspecified; I10 Essential (primary) hypertension; J44.9 Chronic obstructive pulmonary disease, unspecified; Z79.82 Long term (current) use of aspirin; Z79.4 Long term (current) use of insulin; Z79.899 Other long term (current) drug therapy; Z85.41 Personal history of malignant neoplasm of cervix uteri
CPT/HCPCS: 96365; 96361; 93005; 36569; 87040 ×2; 87088; 85025 ×3; 87086; 80048 ×3; 36415 ×2; 83735; 85610; 82947 ×3; 80076; 83605 ×2; 87077; 87186; 81003; 84484; 84145; 83880; 71045 ×2; 99285; U0002; J0696 ×4; J7030 ×4; J2405 ×3; G0378 ×4

== ENCOUNTER 2020-04-03 16:12 | Inpatient (IN) | payer OTHER ==
[2020-04-03] MEDS ORDERED: METHYLPREDNISOLONE 40 MG INJ ONE (17:17)
[2020-04-03 17:21] LABS: Absolute Lymphocytes (CBC) 1.7 K/uL (0.7-4.9); Basophils % 0.4 % (0-1.3); Hematocrit 39.9 % (36.0-45.0); MPV 9.1 fL (7.6-11.3); RBC Red Blood Cell Count 4.38 M/uL (3.86-4.86)
[2020-04-03 17:34] LABS: C-Reactive Protein 8.07 mg/L (<3.00); Ferritin 144.2 ng/mL (8-388)
[2020-04-03 17:36] LABS: ALT/SGPT 33 U/L (12-78); AST/SGOT 16 U/L (15-37); Albumin 3.3 g/dL (3.4-5.0); Alkaline Phosphatase 100 U/L (45-117); BUN Blood Urea Nitrogen 20 mg/dL (7-18); Bicarbonate 24 mmol/L (21-32); Bilirubin Direct < 0.1 mg/dL (0-0.2); Bilirubin Total 0.2 mg/dL (0.2-1.0); Glucose Level 149 mg/dL (74-106); Magnesium 1.8 mg/dL (1.8-2.4); NT PRO-BNP 385 pg/mL (<125); Potassium 4.1 mmol/L (3.5-5.1); Protein, Total 7.1 g/dL (6.4-8.2); Sodium Level 140 mmol/L (136-145); Troponin (Emerg Dept Use Only) < 0.02 ng/mL (0.0-0.045)
--- NOTE | 2020-04-03 17:45 | RAD REPORT ---
EXAM DESCRIPTION: Bhavik Single View04/03/2020 5:24 pm CLINICAL HISTORY: Chest pain COMPARISON: 2021 FINDINGS: The lungs appear clear of acute infiltrate. The heart is borderline enlarged IMPRESSION: No acute abnormalities displayed
[2020-04-03 18:07] LABS: Protime INR 0.88
--- NOTE | 2020-04-03 18:52 | EDPHYS ---
Physician Documentation [facility] Name: Kiley Ortega Age: 74 yrs Sex: Female : 1945 Arrival Date: 04/03/2020 Time: 16:15 Bed 24 Private MD: ED Physician Isael Mondragon HPI: 04/03 16:20 This 74 yrs old Female presents to ER via EMS with complaints of Chest Pain. cp 16:20 The patient or guardian reports chest pain that is located primarily in the anterior cp chest wall, bilaterally. 16:20 Onset: today. The pain radiates to the left shoulder, left back. cp 16:20 Associated signs and symptoms: Pertinent positives: cough, shortness of breath, cp Pertinent negatives: diaphoresis, lower extremity pain, lower extremity swelling, vomiting. Patient reports testing positive for COVID-19 4 days ago. Historical: - Allergies: 16:24 Iodinated Contrast Media - IV Dye; vg1 16:24 Tegretol; vg1 16:24 trelegy; vg1 - Home Meds: 22:36 amlodipine 10 mg tab for Hypertension [Active]; aspirin 81 mg Oral TbEC 1 tab once vg1 daily [Active]; atorvastatin 20 mg Oral tab 1 tab once daily [Active]; Benadryl 25 mg Oral cap 1 cap twice a day [Active]; fluxetine 40 mg once daily [Active]; Glimepiride Oral [Active]; Insulin: Humalog Sub-Q [Active]; Januvia Oral [Active]; losartan 100 mg Oral tab 1 tab once daily for Hypertension [Active]; Lyrica 300mg Oral 1 cap 2 times per day for Diabetic Peripheral Neuropathy [Active]; metformin 500 mg Oral tab 2 tabs 2 times per day for Type 2 Diabetes Mellitus [Active]; omeprazole 40 mg Oral cpDR 1 cap once daily for Gastroesophageal reflux [Active]; - PMHx: 16:24 breast cancer-right side; cervical cancer; COPD; Diabetes - NIDDM; Hypertension; vg1 Myopathy; TIA; neuropathy; - Immunization history:: Adult Immunizations up to date. - Social history:: Smoking status: Patient/guardian denies using tobacco. ROS: 16:25 Constitutional: Negative for body aches, chills, fever, poor PO intake. cp 16:25 Eyes: Negative for injury, pain, redness, and discharge. cp 16:25 ENT: Negative for ear pain, sore throat, difficulty swallowing, difficulty handling secretions. 16:25 Cardiovascular: Positive for chest pain, Negative for edema, palpitations. 16:25 Respiratory: Positive for cough, shortness of breath, wheezing. 16:25 Abdomen/GI: Negative for abdominal pain, nausea, vomiting, and diarrhea, black/tarry stool, rectal bleeding. 16:25 Skin: Negative for rash. 16:25 Neuro: Negative for altered mental status, headache, syncope, weakness. 16:25 All other systems are negative. Exam: 16:17 ECG was reviewed by the Attending Physician. cp 16:30 Constitutional: The patient appears alert, awake, non-diaphoretic, non-toxic, well cp developed, well nourished, in obvious distress, mildly distressed. 16:30 Head/Face: Normocephalic, atraumatic. cp 16:30 Eyes: Periorbital structures: appear normal, Conjunctiva: normal, no exudate, no injection, Sclera: no appreciated abnormality, Lids and lashes: appear normal, bilaterally. 16:30 ENT: External ear(s): are unremarkable, Nose: is normal, Mouth: Lips: moist, Oral mucosa: pink and intact, moist, Posterior pharynx: Airway: no evidence of obstruction, patent. 16:30 Neck: ROM/movement: is normal, is supple, no meningismus, no nuchal rigidity. 16:30 Chest/axilla: Inspection: normal, Palpation: is normal, no crepitus, no tenderness. 16:30 Cardiovascular: Rate: normal, Rhythm: regular, Edema: is not appreciated, JVD: is not appreciated. 16:30 Respiratory: mild respiratory distress is noted, Respirations: labored breathing, that is mild, intercostal retractions, are absent, Breath sounds: decreased breath sounds, that are mild, throughout, stridor, is not appreciated, wheezing: expiratory that is mild, is heard diffusely. 16:30 Abdomen/GI: Inspection: abdomen appears normal, Bowel sounds: active, all quadrants, Palpation: soft, in all quadrants, mild abdominal tenderness, in all quadrants. 16:30 Neuro: Orientation: to person, place \T\ time. Mentation: is normal. Vital Signs: 16:16 BP 153 / 64; Pulse 80; Resp 16; Temp 97.8; Pulse Ox 99% on R/A; Weight 86.18 kg; Height vg1 5 ft. 2 in. (157.48 cm); Pain 10/10; 17:00 BP 131 / 77; Pulse 74; Resp 18; Pulse Ox 100% on 1 lpm NC; vg1 17:45 BP 132 / 67; Pulse 66; Resp 20; Pulse Ox 99% on R/A; vg1 18:30 BP 142 / 68; Pulse 67; Resp 18; Pulse Ox 99% on R/A; vg1 19:15 BP 147 / 68; Pulse 70; Resp 16; Pulse Ox 99% on R/A; vg1 20:00 BP 145 / 67; Pulse 65; Resp 16; Pulse Ox 99% on R/A; vg1 20:45 BP 128 / 55; Pulse 66; Resp 16; Pulse Ox 98% on R/A; vg1 21:30 BP 122 / 55; Pulse 65; Resp 16; Pulse Ox 98% on R/A; vg1 23:39 BP 139 / 64 LA (auto/lg); Pulse 61; Resp 18; Pulse Ox 99% on 1 lpm NC; vg1 16:16 Body Mass Index 34.75 (86.18 kg, 157.48 cm) vg1 MDM: 16:25 Patient medically screened. cp 16:30 Differential diagnosis: abnormal EKG, acute myocardial infarction, acute pericarditis, cp pleurisy, pneumonia, pneumothorax, pulmonary embolus, stable angina, thoracic aortic disection, unstable angina. 18:34 Physician consultation: Shivani Anguiano MD was called at 18:34, left message on voicemail.cp 18:55 The patient was not given aspirin in the Emergency Department. Administered by EMS. cp Data reviewed: vital signs, nurses notes, lab test result(s), EKG, radiologic studies, plain films. Test interpretation: by ED physician or midlevel provider: ECG, plain radiologic studies. Physician consultation: Shivani Anguiano MD was contacted at 18:55, regarding admission, to the telemetry unit. patient's condition, would like consultation with Dr. Castro and DR Lovett. 04/03 16:16 Order name: Basic Metabolic Panel; Complete Time: 17:49 cp 04/03 17:49 Interpretation: Normal except: GLUC 149; BUN 20; GFR 73. cp 04/03 16:16 Order name: CBC with Diff; Complete Time: 17:49 cp 04/03 16:16 Order name: LFT's; Complete Time: 17:49 cp 04/03 17:49 Interpretation: Normal except: ALB 3.3; GLOB 3.8; A/G 0.9. cp 04/03 16:16 Order name: Magnesium; Complete Time: 17:49 cp 04/03 16:16 Order name: NT PRO-BNP; Complete Time: 17:49 cp 04/03 16:16 Order name: PT-INR cp 04/03 16:16 Order name: Troponin (emerg Dept Use Only); Complete Time: 17:49 cp 04/03 17:49 Interpretation: TROPED < 0.02; Reviewed. cp 04/03 16:20 Order name: CRP cp 04/03 16:20 Order name: Ferritin cp 04/03 16:20 Order name: D-Dimer cp 04/03 16:20 Order name: C-Reactive Protein; Complete Time: 17:49 EDMS 04/03 16:20 Order name: Ferritin; Complete Time: 17:49 EDMS 04/03 21:12 Order name: Basic Metabolic Panel EDAK 04/03 21:12 Order name: Basic Metabolic Panel EDAK 04/03 16:16 Order name: XRAY Chest (1 view); Complete Time: 17:49 cp 04/03 16:16 Order name: EKG; Complete Time: 16:17 cp 04/03 21:12 Order name: CONS Physician Consult EDAK 04/03 21:12 Order name: CBC with Automated Diff EDMS 04/03 21:12 Order name: CBC with Automated Diff EDMS 04/03 21:12 Order name: NT PRO-BNP EDMS 04/03 21:12 Order name: NT PRO-BNP EDMS 04/03 21:12 Order name: Troponin I EDMS 04/03 21:12 Order name: Troponin I EDAK 04/03 21:12 Order name: Troponin I EDMS 04/03 22:40 Order name: Glucose, Ancillary Testing EDMS 04/04 07:44 Order name: Glucose, Ancillary Testing EDMS 04/04 16:31 Order name: Glucose, Ancillary Testing EDMS 04/03 16:16 Order name: Cardiac monitoring; Complete Time: 17:21 cp 04/03 16:16 Order name: EKG - Nurse/Tech; Complete Time: 17:21 cp 04/03 16:16 Order name: IV Saline Lock; Complete Time: 17:21 cp 04/03 16:16 Order name: Labs collected and sent; Complete Time: 17: cp 04/03 16:16 Order name: O2 Per Protocol; Complete Time: 17: cp 04/03 16:16 Order name: O2 Sat Monitoring; Complete Time: 17: cp 04/03 17:37 Order name: Labs - recollect needed: recollect d dimer and pt,ptt; Complete Time: 17:49 bd EC:17 Rate is 82 beats/min. Rhythm is regular. DE interval is normal. QRS interval is normal. cp QT interval is normal. Interpreted by me. Reviewed by me. Administered Medications: 17:13 Drug: SOLU-Medrol 80 mg Route: IVP; Site: right wrist; vg1 18:38 Follow up: Response: No adverse reaction vg1 17:13 Not Given (given to patient via EMS): Aspirin Chewable Tablet 324 mg PO once; 81 mg vg1 tablets x 4 19:02 Drug: Ivermectin 18 mg Route: PO; vg1 20:00 Follow up: Response: No adverse reaction vg1 Disposition: 04/05 07:06 Co-signature as Attending Physician, Isael Mondragon MD. rn Disposition: 04/03/20 18:51 Hospitalization ordered by Shivani Anguiano for Inpatient Admission. Preliminary diagnosis are Coronavirus infection, unspecified, Chronic obstructive pulmonary disease with acute lower respiratory infection, Chest pain, unspecified. - Bed requested for Telemetry/MedSurg (Inpatient). - Status is Inpatient Admission. tw2 - Condition is Fair. - Problem is new. - Symptoms have improved. Signatures: Dispatcher [employer] EDMS Simran Kim Roman, MD MD rn Page, Corey, PA PA cp Fanta Mcdonald RN RN cg Princess Molina RN RN tw2 Sylvia Mcdonald RN RN vg1 Corrections: (The following items were deleted from the chart) 04/03 23:59 18:51 Hospitalization Ordered by Shivani Anguiano MD for Inpatient Admission. Preliminary cg diagnosis is Coronavirus infection, unspecified; Chronic obstructive pulmonary disease with acute lower respiratory infection; Chest pain, unspecified. Bed requested for Telemetry/MedSurg (Inpatient). Status is Inpatient Admission. Condition is Fair. Problem is new. Symptoms have improved. cp 04/04 16:12 04/03 23:59 04/03/2020 18:51 Hospitalization Ordered by Shivani Anguiano MD for Inpatient bd Admission. Preliminary diagnosis is Coronavirus infection, unspecified; Chronic obstructive pulmonary disease with acute lower respiratory infection; Chest pain, unspecified. Bed requested for [facility] ER HOLD. Status is Inpatient Admission. Condition is Fair. Problem is new. Symptoms have improved. cg 04/04 17:29 16:12 04/03/2020 18:51 Hospitalization Ordered by Shivani Anguiano MD for Inpatient tw2 Admission. Preliminary diagnosis is Coronavirus infection, unspecified; Chronic obstructive pulmonary disease with acute lower respiratory infection; Chest pain, unspecified. Bed requested for Telemetry/MedSurg (Inpatient). Status is Inpatient Admission. Condition is Fair. Problem is new. Symptoms have improved. bd
--- NOTE | 2020-04-03 18:52 | ER ---
Nurse's Notes [facility] Name: Kiley Ortega Age: 74 yrs Sex: Female : 1945 Arrival Date: 04/03/2020 Time: 16:15 Bed 24 Private MD: Diagnosis: Coronavirus infection, unspecified;Chronic obstructive pulmonary disease with acute lower respiratory infection;Chest pain, unspecified Presentation: 04/03 16:16 Chief complaint: EMS states: Chest pain that goes to left should and left side of back. vg1 Patient was dx Covid positive about 4 days ago. EMS gave patient 81mg of chewable Aspirin x4. Coronavirus screen: Client denies travel out of the [place] in the last 14 days. Client presents with at least one sign or symptom that may indicate coronavirus-19. Provider contacted for isolation considerations. Client reports previous positive COVID test result. Ebola Screen: Patient negative for fever greater than or equal to 101.5 degrees Fahrenheit, and additional compatible Ebola Virus Disease symptoms. Initial Sepsis Screen: Does the patient meet any 2 criteria? No. Patient's initial sepsis screen is negative. Does the patient have a suspected source of infection? No. Patient's initial sepsis screen is negative. Risk Assessment: Do you want to hurt yourself or someone else? Patient reports no desire to harm self or others. Onset of symptoms was March 30, 2020. 16:16 Method Of Arrival: EMS: [facility] 16:16 Acuity: SHELLEY 3 vg1 Historical: - Allergies: 16:24 Iodinated Contrast Media - IV Dye; vg1 16:24 Tegretol; vg1 16:24 trelegy; vg1 - Home Meds: 22:36 amlodipine 10 mg tab for Hypertension [Active]; aspirin 81 mg Oral TbEC 1 tab once vg1 daily [Active]; atorvastatin 20 mg Oral tab 1 tab once daily [Active]; Benadryl 25 mg Oral cap 1 cap twice a day [Active]; fluxetine 40 mg once daily [Active]; Glimepiride Oral [Active]; Insulin: Humalog Sub-Q [Active]; Januvia Oral [Active]; losartan 100 mg Oral tab 1 tab once daily for Hypertension [Active]; Lyrica 300mg Oral 1 cap 2 times per day for Diabetic Peripheral Neuropathy [Active]; metformin 500 mg Oral tab 2 tabs 2 times per day for Type 2 Diabetes Mellitus [Active]; omeprazole 40 mg Oral cpDR 1 cap once daily for Gastroesophageal reflux [Active]; - PMHx: 16:24 breast cancer-right side; cervical cancer; COPD; Diabetes - NIDDM; Hypertension; vg1 Myopathy; TIA; neuropathy; - Immunization history:: Adult Immunizations up to date. - Social history:: Smoking status: Patient/guardian denies using tobacco. Screenin:27 Abuse screen: Denies threats or abuse. Nutritional screening: No deficits noted. vg1 Tuberculosis screening: No symptoms or risk factors identified. Fall Risk No fall in past 12 months (0 pts). No secondary diagnosis (0 pts). IV access (20 points). Ambulatory Aid- None/Bed Rest/Nurse Assist (0 pts). Gait- Normal/Bed Rest/Wheelchair (0 pts) Mental Status- Oriented to own ability (0 pts). Total Benoit Fall Scale indicates No Risk (0-24 pts). Assessment: 16:24 General: Appears in no apparent distress. uncomfortable, Behavior is calm, cooperative. vg1 Pain: Complains of pain in chest Pain radiates to left shoulder to left side of back Pain began 1 hour ago. 16:25 Neuro: Level of Consciousness is awake, alert, obeys commands, Oriented to person, vg1 place, time, situation. Cardiovascular: Patient's skin is warm and dry. Respiratory: Airway is patent Respiratory effort is even, unlabored, Respiratory pattern is regular, symmetrical, Breath sounds with wheezes bilaterally. Respiratory: Reports cough that is. GI: Reports diarrhea, nausea, since yesterday, but has not had nausea or diarrhea today. : No signs and/or symptoms were reported regarding the genitourinary system. EENT: No signs and/or symptoms were reported regarding the EENT system. Derm: Skin is pink, warm \T\ dry. Musculoskeletal: Circulation, motion, and sensation intact. 17:24 Reassessment: Patient appears in no apparent distress at this time. Patient and/or vg1 family updated on plan of care and expected duration. Pain level reassessed. Patient is alert, oriented x 3, equal unlabored respirations, skin warm/dry/pink. Patient states chest pain has subsided to 7/10 and is feeling a little bit better than when she first came in. 19:30 Reassessment: Patient appears in no apparent distress at this time. Patient and/or vg1 family updated on plan of care and expected duration. Pain level reassessed. Patient is alert, oriented x 3, equal unlabored respirations, skin warm/dry/pink. Patient states feeling better. 22:03 Reassessment: Patient appears in no apparent distress at this time. Patient and/or vg1 family updated on plan of care and expected duration. Pain level reassessed. Patient is alert, oriented x 3, equal unlabored respirations, skin warm/dry/pink. Patient states chest pain level is 5/10. Vital Signs: 16:16 BP 153 / 64; Pulse 80; Resp 16; Temp 97.8; Pulse Ox 99% on R/A; Weight 86.18 kg; Height vg1 5 ft. 2 in. (157.48 cm); Pain 10/10; 17:00 BP 131 / 77; Pulse 74; Resp 18; Pulse Ox 100% on 1 lpm NC; vg1 17:45 BP 132 / 67; Pulse 66; Resp 20; Pulse Ox 99% on R/A; vg1 18:30 BP 142 / 68; Pulse 67; Resp 18; Pulse Ox 99% on R/A; vg1 19:15 BP 147 / 68; Pulse 70; Resp 16; Pulse Ox 99% on R/A; vg1 20:00 BP 145 / 67; Pulse 65; Resp 16; Pulse Ox 99% on R/A; vg1 20:45 BP 128 / 55; Pulse 66; Resp 16; Pulse Ox 98% on R/A; vg1 21:30 BP 122 / 55; Pulse 65; Resp 16; Pulse Ox 98% on R/A; vg1 23:39 BP 139 / 64 LA (auto/lg); Pulse 61; Resp 18; Pulse Ox 99% on 1 lpm NC; vg1 16:16 Body Mass Index 34.75 (86.18 kg, 157.48 cm) vg1 ED Course: 16:15 Patient arrived in ED. vg1 16:15 Eze Cordova PA is PHCP. cp 16:15 Isael Mondragon MD is Attending Physician. cp 16:21 Triage completed. vg1 16:27 Patient has correct armband on for positive identification. Bed in low position. Call vg1 light in reach. Side rails up X2. 16:28 monitor worker on. Pulse ox on. NIBP on. vg1 16:45 EKG done, by ED staff, reviewed by Eze RODRIGUEZ. jp3 16:56 Sylvia Mcdonald, RN is Primary Nurse. vg1 17:00 Missed attempt(s): 24 gauge in left hand. Bleeding controlled, band aid applied, jp3 catheter tip intact. 17:05 Missed attempt(s): 24 gauge in right wrist. Bleeding controlled, band aid applied, jp3 catheter tip intact. 17:15 Initial lab(s) drawn, by me, sent to lab. Inserted saline lock: 24 gauge in right jp3 wrist, using aseptic technique. Blood collected. 17:23 X-ray(s) taken. Oxygen administration via nasal cannula \T\ 1L/min. jp3 17:24 XRAY Chest (1 view) In Process Unspecified. EDMS 17:49 Lab(s) recollected, by me, sent to lab. vg1 18:49 Shivani Anguiano MD is Hospitalizing Provider. cp 20:27 Primary Nurse role handed off by Sylvia Mcdonald, RN ar5 21:59 Slyvia Mcdonald, RN is Primary Nurse. vg1 04/04 00:30 Arm band placed on right wrist. wh 00:30 No provider procedures requiring assistance completed. Patient admitted, IV remains in wh place. 07:17 Primary Nurse role handed off by Sylvia Mcdonald, RN bd 13:28 Princess Molina, RN is Primary Nurse. tw2 13:39 Diet tray given. Verbal reassurance given. Diet: Patient given a regular meal tray. jp3 Tolerated well. 14:59 Head of bed lowered. Door closed. Noise minimized. Lights dimmed. jp3 15:43 Assisted to bedside commode. jp3 Administered Medications: 04/03 17:13 Drug: SOLU-Medrol 80 mg Route: IVP; Site: right wrist; vg1 18:38 Follow up: Response: No adverse reaction vg1 17:13 Not Given (given to patient via EMS): Aspirin Chewable Tablet 324 mg PO once; 81 mg vg1 tablets x 4 19:02 Drug: Ivermectin 18 mg Route: PO; vg1 20:00 Follow up: Response: No adverse reaction vg1 Outcome: 18:51 Decision to Hospitalize by Provider. cp 04/04 00:30 Admitted to ER Hold. Please see [facility] for further documentation. wh Condition: stable Instructed on the need for admit. 17:29 Patient left the ED. tw2 Signatures: Dispatcher [employer] EDMS Simran Kim Corey, PA PA cp Wise, Tara, RN RN tw2 Renae Cameron RN RN Adi España 3 Layla Brown ar5 Sylvia Mcdonald RN RN vg1 Corrections: (The following items were deleted from the chart) 04/03 17:00 16:16 Chief complaint: EMS states: Chest pain that goes to left should and left side of vg1 back. Patient was dx Covid positive about 4 days ago. EMS gave patient 81mg of chewable Aspirin. vg1
[2020-04-03] MEDS ORDERED: IVERMECTIN 3 MG TABLET PO ONE (19:00)
[2020-04-03] MEDS ORDERED: ONDANSETRON 4 MG/2 ML VIAL IV PRN (21:07)
[2020-04-03] MEDS ORDERED: ACETAMINOPHEN 500 MG TAB PO PRN (21:07)
[2020-04-03] MEDS ORDERED: D50W 25 GM/50 ML SYRINGE IV PRN (21:10)
[2020-04-03] MEDS ORDERED: GLUCAGON 1 MG/VIAL IM PRN (21:10)
[2020-04-03] MEDS ORDERED: ENOXAPARIN 40 MG/0.4 ML SQ ONE ×2 (21:11→22:36)
[2020-04-04 06:03] LABS: BUN Blood Urea Nitrogen 19 mg/dL (7-18); Bicarbonate 25 mmol/L (21-32); Glucose Level 190 mg/dL (74-106); NT PRO-BNP 353 pg/mL (<125); Sodium Level 139 mmol/L (136-145)
[2020-04-04 06:07] LABS: Absolute Lymphocytes (CBC) 1.4 K/uL (0.7-4.9); Basophils % 0.1 % (0-1.3); Hematocrit 44.5 % (36.0-45.0); MPV 9.6 fL (7.6-11.3)
[2020-04-04] MEDS: INSULIN -REGULAR HUMAN 50 UNIT/0.5 ML ML SQ SCH ×4 (07:30→20:33)
[2020-04-04] MEDS ORDERED: METHYLPREDNISOLONE 40 MG INJ ONE ×2 (07:52→08:08)
[2020-04-04] MEDS ORDERED: INSULIN -REGULAR HUMAN 50 UNIT/0.5 ML ML ONE ×2 (07:52→16:47)
[2020-04-04] MEDS ORDERED: ASPIRIN EC 81 MG TAB PO ONE (07:52)
[2020-04-04] MEDS: ASPIRIN EC 81 MG TAB PO SCH (09:00)
[2020-04-04] MEDS: METHYLPREDNISOLONE 40 MG INJ IV SCH ×2 (09:00→20:33)
[2020-04-04] MEDS ORDERED: INFLUENZA VACCINE (for 3y+) 0.5 ML DOSE IMVAC ONE (10:00)
[2020-04-04] MEDS ORDERED: DOCUSATE NA/SENNA CONC 1 TAB PO PRN (12:18)
[2020-04-04] MEDS ORDERED: ONDANSETRON 4 MG/2 ML VIAL ONE (13:10)
[2020-04-04] MEDS: BENZONATATE 100 MG CAP PO PRN (13:25)
[2020-04-04] MEDS ORDERED: BENZONATATE 100 MG CAP PO ONE (13:39)
[2020-04-04] MEDS: METFORMIN HCL 500 MG TAB PO SCH (18:04)
--- NOTE | 2020-04-04 19:07 | HP ---
Date of Admission: 04/03/2020 History Of Present Illness: A 74-year-old female, who tested positive for COVID-19 four days before admission, came to emergency room with a complaint of epigastric abdominal discomfort, burning, and p ain. The patient has chronic COPD and she felt a bit more than her baseline, short of breath. Becau se of the patient's COVID positive test history and her risk factors for CAD and COPD exacerbation, s he was admitted. The patient voiced no other complaints. Review of Systems: Respiratory: No complaint. Cardiovascular: No dizziness. No palpitation. Neurological: No complaint. Gastrointestinal: Mild nausea. No vomiting. No other complaints. Skeletomuscular: No complaint. Genitourinary: No complaint. Neurological: No complaint. Past Medical History: 1.COPD. 2.Type 2 diabetes with peripheral neuropathy. 3.Hypertension. 4.Hyperlipidemia. 5.History of right breast cancer. 6.History of cervical cancer. 7.Generalized weakness with myopathy. Social History: Stopped smoking. No alcohol or IV drug abuse history. Family History: Noncontributing. Medications: Include aspirin 81 mg p.o. daily, Lipitor 20 mg p.o. daily, Tessalon Perles 100 mg p.o. at bedtime p.r.n., vitamin D3, vitamin B12, ferrous sulfate 325 mg p.o. daily, glipizide 5 mg p.o. b .i.d., metformin 1000 mg p.o. b.i.d., Lyrica 300 mg p.o. b.i.d. Allergies: CARBAMAZEPINE AND IODINATED CONTRAST MEDIA. Physical Examination: Vital Signs: Blood pressure 128/63, pulse 60, temperature 97.6. Heart: Regular rate and rhythm. Chest: Mild end-expiratory wheezing. The patient is at baseline for that. Abdomen: Soft, nontender. No hepatosplenomegaly. Bowel sounds are normoactive. Extremities: No edema. No cyanosis. Peripheral pulses are felt. Neurological: Alert and oriented. Nonfocal. Grossly intact. Laboratory Data: Chest x-ray, no acute pathology. CBC noted. Chemistry showed GFR is more than 90. Blood sugar fingersticks noted. C-reactive protein at 807. BNP 353. Assessment And Plan: 1.Epigastric abdominal pain. Discomfort could be gastroesophageal reflux. We will put her on patricia n pump inhibitors. However, we will ask Cardiology to evaluate the patient for any cardiac workup si nce she is high risk for that. 2.Chronic obstructive pulmonary disease. We will continue her current treatment, oxygen protocol, a nd her home medications. 3.Type 2 diabetes. We will monitor blood sugar and put her on sliding scale. 4.COVID-19 positive. The patient is put on IV Solu-Medrol and she was given 1 dose of ivermectin. We will ask Dr. Castro to see the patient. Look orders for details. MFS/MODL Voice ID: [id number]
[2020-04-04] MEDS: PREGABALIN 150 MG CAP PO SCH (20:32)
[2020-04-04] MEDS: ATORVASTATIN 20 MG TAB PO SCH (20:33)
--- NOTE | 2020-04-05 | EKG ---
Test Date: 2020-04-03 Test Time: 16:10:39 Group Sales Manager: VALENTINO MEASUREMENT RESULTS: Intervals: Rate: 82 NE: 154 QRSD: 74 QT: 378 QTc: 441 [place]: P: 46 NE: 154 QRS: 59 T: 56 INTERPRETIVE STATEMENTS: Normal sinus rhythm with sinus arrhythmia Normal ECG Compared to ECG 08/04/2019 16:50:55 No significant changes Electronically Signed On 04-04-20 23:58:34 [employer] by Jose Lovett
[2020-04-05 00:07] VITALS: BMI 34.8
--- NOTE | 2020-04-05 02:38 | CON ---
Date of Consultation: 04/04/2020 Reason For Consultation: Chest pain. History Of Present Illness: The patient is a 74-year-old woman. She is a patient of roseline Cornelius o has a history of diabetes, hypertension, breast cancer, COPD, and dyslipidemia. She has allergy to iodine. Came in with shortness of breath, worse with cough. She has been coughing for the last wee k or so. No fever. No chills. She had a negative chest x-ray. She had a normal echocardiogram in April 2019. Her BNP was 385. Her EKG was unremarkable. Her troponin was negative. She is feeling better, but still having a rather persistent cough. Past Medical History: As stated above. Allergies: IODINE. Review of Systems: Negative. Social History: Negative. Family History: Noncontributory. Medications: At home include aspirin, Lipitor, glipizide, and metformin. She is also on Lyrica. Physical Examination: Vital Signs: Stable. Afebrile. HEENT: Negative. Neck: Supple with no bruit. Chest: Clear. Cardiac: Regular rhythm and rate. No murmurs, gallops, or rubs. Abdomen: Benign. Extremities: No clubbing, cyanosis, or edema. Diagnostic Data: As stated earlier. Impression And Plan: 1.Chest pain secondary to pleurisy and bronchitis. 2.Diabetes. 3.Hypertension. 4.Chronic obstructive pulmonary disease. 5.Dyslipidemia. 6.History of breast cancer. I do not think we need to do any extensive cardiac workup on her. I think she needs to have her coug h and bronchitis treated with inhalers and maybe antibiotics. I would consider her for an outpatient Lexiscan at her convenience after discharge. DANAE/VIJAY Voice ID: [id number] Report ID: [id number]
[2020-04-05] MEDS: METFORMIN HCL 500 MG TAB PO SCH ×2 (09:36→16:16)
[2020-04-05] MEDS: PREGABALIN 150 MG CAP PO SCH ×2 (09:37→20:54)
[2020-04-05] MEDS: ASPIRIN EC 81 MG TAB PO SCH (09:37)
[2020-04-05] MEDS: VITAMIN D 5,000 UNIT CAP PO SCH (09:37)
[2020-04-05] MEDS: FERROUS SULFATE 325 MG TAB PO SCH (09:37)
[2020-04-05] MEDS: METHYLPREDNISOLONE 40 MG INJ IV SCH ×2 (09:37→20:53)
[2020-04-05] MEDS: CYANOCOBALAMIN 1,000 MCG TAB PO SCH (09:38)
[2020-04-05] MEDS: INSULIN -REGULAR HUMAN 50 UNIT/0.5 ML ML SQ SCH ×4 (09:38→20:53)
--- NOTE | 2020-04-05 12:20 | P.CNS ---
Date of Consult: 04/05/20 Reason for Consult: Torres virus infection Chief Complaint: Chest pain History of Present Illness: Patient is 74 years of age with a history of COPD admitted with the torres virus infection this diagnose recently she denies any shortness of breath when I saw her this morning patient was off oxygen denies any fever chills or chest pain complain of chest pain radiating to the back S some shortness of breath chest discomfort Allergies carbamazepine [From Tegretol] Allergy (Intermediate, Verified 05/17/19 14:46) Hives/Rash Iodinated Contrast Media [IV Dye, Iodine Containing Contrast ] Allergy (Intermediate, Verified 05/17/19 14:46) Hives Home Medications: Aspirin [Aspir-Low] 81 mg PO DAILY 04/30/17 Atorvastatin Calcium [Lipitor*] 20 mg PO BEDTIME tab 06/01/19 Benzonatate [Tessalon Perle*] 100 mg PO Q6H PRN #60 cap 06/01/19 Cholecalciferol (Vitamin D3) [Vitamin D 5,000 IU Cap*] 5,000 unit PO DAILY cap 06/01/19 Cranberry Fruit Extract 400 mg PO BID #120 cap 06/01/19 Cyanocobalamin [Vitamin B-12*] 2,500 mcg PO DAILY #30 tab 06/01/19 Docusate/Senna [Senokot-S*] 2 tab PO BEDTIME PRN #60 tab 06/01/19 Ferrous Sulfate [Ferrous Sulfate*] 325 mg PO DAILY #30 tab 06/01/19 Iron/FA/Vit B-Com W/C [Hemocyte Plus*] 1 tab PO DAILY WITH BREAKFAST #30 tab 06/01/19 Metformin HCl [Glucophage*] 1,000 mg PO BIDWM tab 06/01/19 Nystatin Powder [Mycostatin (Powder)*] 1 appl TOP BID #2 btl 06/01/19 Pregabalin [Lyrica] 300 mg PO BID #60 cap 06/01/19 Glipizide S.a. [Glucotrol Xl*] 5 mg PO BIDWM 08/05/19 Amox/Clavulanate [Augmentin 500-125 mg Tab] 500 mg PO BID #14 tab 08/06/19 - Past Medical/Surgical History Diabetic: Yes -: CVA -: HTN -: TIA -: IDDM -: COPD -: BREAST AND CERVICAL CA -: ANEMIA -: DEPRESSION/ANXIETY -: HEADACHES -: Bladder Suspension sx 4 -: Left Ankle Surgery -: Stomach surgery (ureter sx) -: Breast biopsy -: appy -: hysterectomy - Family History Father Medical History: Hypertension, Stroke Mother Medical History: Hypertension, Diabetes - Social History Smoking Status: Never smoker Alcohol use: No CD- Drugs: No Caffeine use: Yes Place of Residence: Home Physical Examination Temp Pulse Resp BP Pulse Ox 98.7 F 72 16 139/34 L 99 04/05/20 08:00 04/05/20 08:00 04/05/20 08:00 04/05/20 08:00 04/05/20 08:00 General: Alert, In no apparent distress, Oriented x3 Respiratory: Expiratory wheezes Cardiovascular: No edema, Regular rate/rhythm, Normal S1 S2 - Problems (1) 2019 novel coronavirus–infected pneumonia (NCIP)#8211;infected pneumonia (NCIP) Current Visit: Yes Status: Acute Plan: Patient is 74 years of age with a history of COPD admitted with worsening dyspnea the oxygenation is satisfactory vital signs stable have an exacerbation of underlying COPD tested positive for torres virus about 4 days ago final signs all stable there is no clinical evidence off myocardial damages normal troponin normal EKG patient can be discharged home on low-dose prednisone Ms. still have underlying torres virus pneumonia also given our dose of ivermectin was see if she qualifies for home O2
[2020-04-05] MEDS: BENZONATATE 100 MG CAP PO PRN (17:43)
--- NOTE | 2020-04-05 18:13 | PN ---
Subjective: Today, her shortness of breath is better; however, not completely back at baseline. Hav ing episodic cough, but mild. The patient has no other complaint. Objective: Vital Signs: Blood pressure 150/66, pulse 97, temperature 97.4. Heart: Regular rate and rhythm. Chest: Mild end-expiratory wheeze, baseline for the patient. Abdomen: Soft, benign. Neurological: Alert, oriented, grossly intact. Extremities: No edema. No cyanosis. Laboratory Data: Blood sugar fingersticks ranged between 294 to 159. Assessment And Plan: 1.Type 2 diabetes mellitus. The patient is on steroids and that is why her blood sugar is higher. She is on sliding scale. We will continue that. 2.Coronavirus infection with increased shortness of breath and the patient with chronic obstructive pulmonary disease. The patient had 1 dose of and she is doing well and improving. I thin k she should be ready to go home by tomorrow if she continues to improve. The patient has home oxyge n. 3.Epigastric abdominal pain versus chest pain. Seen by Cardiology and no intervention at this time. It was thought that this is not coronary in origin; however, she could be also having a stress test , DEXA scan as an outpatient as per Cardiology. We will continue current treatment and expect discha rge in the morning. MFS/MODL Voice ID: [id number] Report ID: [id number]
[2020-04-05] MEDS: ATORVASTATIN 20 MG TAB PO SCH (20:54)
[2020-04-05] MEDS ORDERED: PANTOPRAZOLE 40MG TABLET PO ONE (21:13)
[2020-04-06] MEDS ORDERED: PANTOPRAZOLE 40MG TABLET PO SCH (07:30)
[2020-04-06] MEDS: INSULIN -REGULAR HUMAN 50 UNIT/0.5 ML ML SQ SCH ×2 (08:56→12:42)
[2020-04-06] MEDS: FERROUS SULFATE 325 MG TAB PO SCH (08:57)
[2020-04-06] MEDS: ASPIRIN EC 81 MG TAB PO SCH (08:57)
[2020-04-06] MEDS: METHYLPREDNISOLONE 40 MG INJ IV SCH (08:57)
[2020-04-06] MEDS: METFORMIN HCL 500 MG TAB PO SCH (08:57)
[2020-04-06] MEDS: PREGABALIN 150 MG CAP PO SCH (08:58)
[2020-04-06] MEDS: CYANOCOBALAMIN 1,000 MCG TAB PO SCH (08:58)
[2020-04-06] MEDS: VITAMIN D 5,000 UNIT CAP PO SCH (08:58)
[2020-04-06 09:09] VITALS: BP 162/69; TEMP 97.5
[2020-04-06 13:02] VITALS: O2SAT 98
--- NOTE | 2020-05-07 14:01 | DS ---
Date of Discharge: 04/06/2020 History: A 74-year-old female with history of COPD, was admitted to the hospital because of testing positive for COVID-19 virus along with a complaint of mild increase in her shortness of breath. Past Medical History: As per admit note. Social History: As per admit note. Family History: As per admit note. Medications: As per admit note. Allergies: PER ADMIT NOTE. Physical Examination: As per admit note. Diagnostic Data: As per admit note. Hospital Course: The patient was admitted to the hospital. She was put on oxygen protocol, continue d with her home medications for her COPD, put her on IV Solu-Medrol, and she was given [address] dose [address]ver mectin. Dr. Castro has seen the patient for that. The patient also during her hospitalization was put on proton pump inhibitors because of gastric abdominal pain thought secondary to gastroesophagea l reflux disease. We also monitored her blood sugar fingersticks and put her on regular insulin slid ing scale. Cardiology has seen the patient because of epigastric abdominal pain and no cardiac lenora p was considered as an inpatient, thought that they can follow up the patient after her discharge wit dany Jimeneziscan as the patient improved and her symptoms of shortness of breath back to baseline. It wa s thought that the patient is stable enough to be discharged to continue her home medications. She w as discharged on omeprazole and Augmentin. Look discharge orders along with her home medicines. Look discharge order s for details. MFS/MODL Voice ID: [id number] Report ID: [id number]
== END 2020-04-06 14:09 | disposition home or self-care (01) | DRG 177 ==
LOC: ER 16:12 → ERHOLD 21:24 → 4TH 04-04 17:00
PROVIDERS: ADMIT Internal Medicine; ATTEND Internal Medicine
DX: U07.1 COVID-19 (principal); J12.82 Pneumonia due to coronavirus disease 2019; K21.9 Gastro-esophageal reflux disease without esophagitis; E78.5 Hyperlipidemia, unspecified; J44.9 Chronic obstructive pulmonary disease, unspecified; E11.42 Type 2 diabetes mellitus with diabetic polyneuropathy; J40 Bronchitis, not specified as acute or chronic; I10 Essential (primary) hypertension; R09.1 Pleurisy; Z91.041 Radiographic dye allergy status; Z79.82 Long term (current) use of aspirin; Z79.4 Long term (current) use of insulin; Z79.899 Other long term (current) drug therapy; Z86.73 Personal history of transient ischemic attack (TIA), and cerebral infarction without residual deficits; Z85.3 Personal history of malignant neoplasm of breast; Z85.41 Personal history of malignant neoplasm of cervix uteri; Z88.8 Allergy status to other drugs, medicaments and biological substances; Z90.710 Acquired absence of both cervix and uterus
CPT/HCPCS: 36415; 71045; 80048; 80076; 82728; 82947; 83735; 83880; 84484; 85025; 85379; 85610; 86140; 93005; 94760; 96374; 99285; J1650; J2405; J2920

== ENCOUNTER 2021-12-17 09:13 | Observation (INO) | payer OTHER ==
--- OUTSIDE RECORDS SUMMARY | 2021-12-17 09:17 | XMS REPORT | Continuity of Care Document ---
:1945 Author Organization [facility] t Address [address] [place] [address] [address]. [address] [place] [address] Care Team Providers Name Role Phone Jesus Franco Attending Clinician Unavailable Shivani Anguiano Attending Clinician Unavailable Michael Attending Clinician Unavailable Michael Admitting Clinician Unavailable Payers Payer Name Policy Type Policy Number Effective Date Expiration Date S sha [place] [id number] Common [facility] Spirit - C 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 5-10 Family mellitus Mellitus 00:00: Practi c 00 e History of History of Problem Active [facility] ill[facility] SARS-CoV-2 SARS-CoV-2 5-10 [facility] 00:00: Practic 00 e Neuropathy Neuropathy Problem Active V illage due to Due to 29 Family type 2 Type 2 00:00: Practic diabetes Diabetes 00 e mellitus Mellitus Gastroesop Gastroesop Problem Active 2018-02 V ill[facility] hageal hageal 2-30 Family reflux Reflux 00:00: Practic disease Disease 00 e without without esophagiti Esophagiti s s Psoriasis Psoriasis Problem Active Rika francisco javier 9-04 Family 00:00: Practic 00 e Ulcer of Ulcer of Problem Active Danilo ge foot Foot 3-13 Family 00:00: Practic 00 e Senile Senile Problem Active 2017-02 [facility] osteoporos Osteoporos 2-13 Fa mary is is 00:00: Practic 00 e Neuropathy Neuropathy Problem Active 2016-02 [facility] ill[facility] due to Due to 2-14 Family diabetes Diabetes 00:00: Practi c mellitus Mellitus 00 e Hypoglycem Hypoglycem Problem Active 2016-02 [facility] ill[facility] ia ia 2-14 Family 00:00: Practic 00 e Hyperlipid Hyperlipid Problem Active 2016-02 [facility] ill[facility] emia emia 2-14 Family 00:00: Practic 00 e Obesity Obesity Problem Active 2016-02 Village 2-14 Family 00:00: Practic 00 e Chronic Chronic Problem Active 2016-02 [facility]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 00:00: Pr actic disorder, Disorder, 00 e single Single episode Episode Chronic Chronic Problem Active 2016-02 [facility] pain Pain 2-14 Family 00:00: Practic 00 e Essential Essential Problem Active 2016-02 Rika francisco javier hypertensi Hypertensi 2-14 Trey hernandez on on 00:00: Practic 00 e Chronic Chronic Problem Active 2016-02 [facility] obstructiv Obstructiv 2-14 [facility] e lung e Lung 00:00: Practic disease Disease 00 e [id number] Boil Problem [facility] [id number] Dysuria Problem [facility] [id number] Menopausal Problem Com mon vaginal [facility] dryness [facility] Allergies, Adverse Reactions, Alerts Allergy Allergy Status Severity Reaction(s) Onset Inactive Treating Comm ents Source Name Type Date Date Clinician carbamaz carbamaz Active hives Common epine epine [facility] Iodine Allergy Active [facility] to Family substan Practic e e Tegretol Allergy Active [facility] to Family substan Practic e e 463 Drug Active nausea,diff Commo n allergy breathing [facility] Social History Social Habit Start Date Stop Date Quantity Comments Source History of Tobacco Common [facility] - Use [facility] Sex Assigned At [birth year] [facility] 00:00:00 00:00:00 [facility] Center Smoking Status Start Date Stop Date Source Never Smoker [facility] Medications Ordered Filled Start Stop Current Ordering Indication Dosage Frequency Signature Comments Components Source Medication Medication Date Date Medication? Clinician (SIG) Name Name Bupivicaine Bupivicaine 0 No 5mg Common [place] 8-22 Spirit 00:00: - [facility] Gudelia Cantualog 0 No 40mg Common (Triamcinol (Triamcinol 8-22 S pirit one) one) 00:00: - [facility] Bupivicaine Bupivicaine 2021-0 No 5mg Common [place] 8-22 Spirit 00:00: - [facility] Gudelia Cantualog 0 No 40mg Common (Triamcinol (Triamcinol 8-22 S pirit one) one) 00:00: [facility] Bupivicaine Bupivicaine 2021-0 No 5mg Common [place] 8-22 Spirit 00:00: - [facility] Gudelia Galeas 0 No 40mg Common (Triamcinol (Triamcinol 8-22 S pirit one) one) 00:00: - [facility] acetaminoph acetaminoph No 2capsul Q6H acetaminop Village en 500 mg en 500 mg e(s) hen 500 mg Family capsule capsule capsule Practi c Take 2 Take 2 Take 2 e capsules capsules capsules every 6 every 6 every 6 hours by hours by hours by oral route oral route oral route as needed. as needed. as needed. Adult Adult No 1 Q1D Adult [facility] Aspirin Aspirin Aspirin Family Regimen 81 Regimen 81 Regimen 81 Practic mg mg mg e tablet,helen tablet,helen tablet,del yed release yed release ayed Take 1 Take 1 release tablet tablet Take 1 every day every day tablet by oral by oral every day route in route in by oral the the route in morning. morning. the morning. amlodipine amlodipine No 1 Q1D amlodipine [facility] 5 mg tablet 5 mg tablet 5 mg F amily Take 1 Take 1 tablet Practic tablet tablet Take 1 e every day every day tablet by oral by oral every day route in route in by oral the the route in morning. morning. the morning. atorvastati atorvastati No atorvastat [facility] n 20 mg n 20 mg in 20 mg Famil y tablet TAKE tablet TAKE tablet Practic 1 TABLET BY 1 TABLET BY TAKE 1 e MOUTH DAILY MOUTH DAILY TABLET BY MOUTH DAILY BD BD No BD Village Ultra-Fine Ultra-Fine Ultra-Fine Family Digna Pen Digna Pen Digna Pen Pra ctic Needle 32 Needle 32 Needle 32 e gauge x gauge x gauge x " as " as " as directed directed directed Comfort EZ Comfort EZ No 1needle Q1D Comfort EZ [place] Pen [place] Pen [place] (s) Pen F amily 32 gauge x 32 gauge x [place] 32 Practic 06/25" Take 06/25" Take gauge x e 1 needle 1 needle 06/25" Take every day every day 1 needle by miscell. by miscell. every day route as route as by directed. directed. miscell. route as directed. diphenhydra diphenhydra No 1capsul Q8H diphenhydr [facility] mine 25 mg mine 25 mg e(s) amine 25 Family capsule capsule mg capsule Pra ctic Take 1 Take 1 Take 1 e capsule capsule capsule every 8 every 8 every 8 hours by hours by hours by oral route oral route oral route as as as directed. directed. directed. fluoxetine fluoxetine No 1capsul Q1D fluoxetine [facility] 40 mg 40 mg e(s) 40 mg Family capsule capsule capsule Practi c Take 1 Take 1 Take 1 e capsule capsule capsule every day every day every day by oral by oral by oral route at route at route at bedtime. bedtime. bedtime. ipratropium ipratropium No 2.5mL Q6H ipratropiu [facility] bromide bromide m bromide Fami ly 0.02 % 0.02 % 0.02 % Practic solution solution solution e for for for inhalation inhalation inhalation Inhale 2.5 Inhale 2.5 Inhale 2.5 mL every 6 mL every 6 mL every 6 hours by hours by hours by inhalation inhalation inhalation route. route. route. losartan losartan No losartan Rika francisco javier 100 mg 100 mg 100 mg Family tablet TAKE tablet TAKE tablet Practic 1 TABLET BY 1 TABLET BY TAKE 1 e MOUTH DAILY MOUTH DAILY TABLET BY MOUTH DAILY Lyrica 300 Lyrica 300 No 1capsul BID Lyrica 300 Village mg capsule mg capsule e(s) mg capsule Family Take 1 Take 1 Take 1 Practic capsule capsule capsule e twice a day twice a day twice a by oral by oral day by route as route as oral route directed. directed. as directed. metformin metformin No 2 BID metformin Village ER 500 mg ER 500 mg ER 500 mg Family 24 hr 24 hr 24 hr Practic tablet,exte tablet,exte tablet,ext e nded nded ended release release release Take 2 Take 2 Take 2 tablets tablets tablets twice a day twice a day twice a by oral by oral day by route with route with oral route meals for meals for with meals 90 days. 90 days. for 90 days. omeprazole omeprazole No 1 Q1D omeprazole Village 20 mg 20 mg 20 mg Family delayed delayed delayed Practi c release,dis release,dis release,di e integrating integrating sintegrati tablet Take tablet Take ng tablet 1 tablet 1 tablet Take 1 every day every day tablet by oral by oral every day route as route as by oral directed. directed. route as directed. Soliqua Soliqua No Soliqua Villag e 100/33 100 100/33 100 100/33 100 Family unit-33 unit-33 unit-33 Practi c mcg/mL mcg/mL mcg/mL e subcutaneou subcutaneou subcutaneo s insulin s insulin us insulin pen Give 60 pen Give 60 pen Give units in AM units in AM 60 units in AM Lyrica Lyrica No Lyrica metFORMIN metFORMIN No 1{table BID metFORMIN HCl ER 500 HCl ER 500 t_with_ HCl ER 500 MG MG evening MG _meal} Soliqua Soliqua No Soliqua Tylenol Tylenol No Tylenol Lantus Lantus No Lantus SoloStar SoloStar SoloStar amLODIPine amLODIPine No 1{table QD amLODIPine Besylate 10 Besylate 10 t} Besylate MG MG 10 MG Atorvastati Atorvastati No Atorvastat n Calcium n Calcium in Calcium Losartan Losartan No 1{table QD Losartan Potassium Potassium t} Potassium 100 MG 100 MG 100 MG Docusate Docusate No Docusate Sodium-[place] Sodium-[place] Sodium-Herman nthranol nthranol anthranol Aspirin 81 Aspirin 81 No Aspirin 81 glipiZIDE glipiZIDE No glipiZIDE Omeprazole Omeprazole No QD Omeprazole 20 MG 20 MG 20 MG Pregabalin Pregabalin No 1{capsu BID Pregabalin 300 MG 300 MG le} 300 MG diphenhydrA diphenhydrA No 1{capsu diphenhydr MINE HCl 25 MINE HCl 25 le_at_b AMINE HCl MG MG edtime_ 25 MG as_need ed} Fosamax Fosamax No Fosamax Januvia Januvia No Januvia PROzac 40 PROzac 40 No 1{capsu QD PROzac 40 MG MG le} MG metFORMIN metFORMIN No 1{table BID metFORMIN HCl ER 500 HCl ER 500 t_with_ HCl ER 500 MG MG evening MG _meal} Lantus Lantus No Lantus SoloStar SoloStar SoloStar Docusate Docusate No Docusate Sodium-[place] Sodium-[place] Sodium-Herman nthranol nthranol anthranol Lyrica Lyrica No Lyrica Omeprazole Omeprazole No QD Omeprazole 20 MG 20 MG 20 MG amLODIPine amLODIPine No 1{table QD amLODIPine Besylate 10 Besylate 10 t} Besylate MG MG 10 MG Atorvastati Atorvastati No Atorvastat n Calcium n Calcium in Calcium Soliqua Soliqua No Soliqua diphenhydrA diphenhydrA No 1{capsu diphenhydr MINE HCl 25 MINE HCl 25 le_at_b AMINE HCl MG MG edtime_ 25 MG as_need ed} glipiZIDE glipiZIDE No glipiZIDE Fosamax Fosamax No Fosamax Tylenol Tylenol No Tylenol Losartan Losartan No 1{table QD Losartan Potassium Potassium t} Potassium 100 MG 100 MG 100 MG Januvia Januvia No Januvia PROzac 40 PROzac 40 No 1{capsu QD PROzac 40 MG MG le} MG Pregabalin Pregabalin No 1{capsu BID Pregabalin 300 MG 300 MG le} 300 MG Aspirin 81 Aspirin 81 No Aspirin 81 Lyrica Lyrica No Lyrica metFORMIN metFORMIN No 1{table BID metFORMIN HCl ER 500 HCl ER 500 t_with_ HCl ER 500 MG MG evening MG _meal} Soliqua Soliqua No Soliqua Tylenol Tylenol No Tylenol Lantus Lantus No Lantus SoloStar SoloStar SoloStar amLODIPine amLODIPine No 1{table QD amLODIPine Besylate 10 Besylate 10 t} Besylate MG MG 10 MG Atorvastati Atorvastati No Atorvastat n Calcium n Calcium in Calcium Losartan Losartan No 1{table QD Losartan Potassium Potassium t} Potassium 100 MG 100 MG 100 MG Docusate Docusate No Docusate Sodium-[place] Sodium-[place] Sodium-Herman nthranol nthranol anthranol Aspirin 81 Aspirin 81 No Aspirin 81 glipiZIDE glipiZIDE No glipiZIDE Omeprazole Omeprazole No QD Omeprazole 20 MG 20 MG 20 MG Pregabalin Pregabalin No 1{capsu BID Pregabalin 300 MG 300 MG le} 300 MG diphenhydrA diphenhydrA No 1{capsu diphenhydr MINE HCl 25 MINE HCl 25 le_at_b AMINE HCl MG MG edtime_ 25 MG as_need ed} Fosamax Fosamax No Fosamax Januvia Januvia No Januvia PROzac 40 PROzac 40 No 1{capsu QD PROzac 40 MG MG le} MG Immunizations Ordered Immunization Filled Immunization Date Status Commen ts Source Name Name influenza, high-dose, influenza, high-dose, 2020-12-19 Completed [facility] quadrivalent quadrivalent 12:00:38 Practice Non-US Vaccine Non-US Vaccine 2020-09-06 Completed [facility] Family COVID-19 PS COVID-19 PS 00:00:00 Practice (EpiVacCorona) (EpiVacCorona) COVID-19, mRNA, COVID-19, mRNA, 2020-08-10 Completed [facility] Family LNP-S, PF, 100 LNP-S, PF, 100 00:00:00 Practi ce mcg/0.5 mL dose mcg/0.5 mL dose (Moderna) (Moderna) pneumococcal pneumococcal 2018-02-10 Completed [facility] mary polysaccharide PPV23 polysaccharide PPV23 00:00:00 Practice influenza, influenza, 2018-02-10 Completed [facility] injectable, injectable, 00:00:00 Practice quadrivalent quadrivalent Vital Signs Vital Name Observation Time Observation Value Comments Source height 2021-11-12 13:15:00 62 [in_i] [facility] 2021-11-12 13:15:00 205.4 [lb_av] [facility] temperature 2021-11-12 13:15:00 97.3 [degF] [facility] bmi 2021-11-12 13:15:00 37.56 kg/m2 [facility] blood pressure 2021-11-12 13:15:00 146 mm[Hg] [facility] - systolic [facility] blood pressure 2021-11-12 13:15:00 86 mm[Hg] [facility] - diastolic [facility] height 2021-10-01 13:30:00 62 [in_i] Common S pirit - [facility] weight 2021-10-01 13:30:00 198.5 [lb_av] [facility] - [facility] temperature 2021-10-01 13:30:00 97.3 [degF] Common S pirit - [facility] bmi 2021-10-01 13:30:00 36.3 kg/m2 Common S pirit - [facility] blood pressure 2021-10-01 13:30:00 128 mm[Hg] [facility] - systolic [facility] blood pressure 2021-10-01 13:30:00 74 mm[Hg] [facility] - diastolic [facility] BP Diastolic 2021-03-21 00:00:00 76 mm[Hg] [facility] Height 2021-03-21 00:00:00 62 [in_i] [facility] BMI (Body Mass Index) 2021-03-21 00:00:00 35.7 kg/m2 [facility] BP Systolic 2021-03-21 00:00:00 140 mm[Hg] [facility] Body Weight 2021-03-21 00:00:00 195 [lb_av] [facility] BP Diastolic 2020-12-19 00:00:00 77 mm[Hg] [facility] Height 2020-12-19 00:00:00 62 [in_i] [facility] BMI (Body Mass Index) 2020-12-19 00:00:00 36.1 kg/m2 [facility] BP Systolic 2020-12-19 00:00:00 135 mm[Hg] [facility] Body Weight 2020-12-19 00:00:00 197.4 [lb_av] [facility] BP Diastolic 2020-09-22 00:00:00 57 mm[Hg] [facility] Height 2020-09-22 00:00:00 62 [in_i] [facility] BMI (Body Mass Index) 2020-09-22 00:00:00 36.2 kg/m2 [facility] Practice BP Systolic 2020-09-22 00:00:00 124 mm[Hg] [facility] Practice Body Weight 2020-09-22 00:00:00 198 [lb_av] [facility] Practice BP Diastolic 2020-09-11 00:00:00 79 mm[Hg] [facility] Practice Height 2020-09-11 00:00:00 62 [in_i] [facility] Practice BMI (Body Mass Index) 2020-09-11 00:00:00 35.8 kg/m2 [facility] Practice BP Systolic 2020-09-11 00:00:00 141 mm[Hg] [facility] Practice Body Weight 2020-09-11 00:00:00 196 [lb_av] [facility] Practice BP Diastolic 2020-06-19 00:00:00 80 mm[Hg] [facility] Practice Height 2020-06-19 00:00:00 62 [in_i] [facility] Practice BMI (Body Mass Index) 2020-06-19 00:00:00 35.8 kg/m2 [facility] Practice BP Systolic 2020-06-19 00:00:00 134 mm[Hg] [facility] Practice Body Weight 2020-06-19 00:00:00 196 [lb_av] [facility] Practice BP Diastolic 2019-11-09 00:00:00 64 mm[Hg] [facility] Practice Height 2019-11-09 00:00:00 62 [in_i] [facility] Practice BMI (Body Mass Index) 2019-11-09 00:00:00 35.6 kg/m2 [facility] Practice BP Systolic 2019-11-09 00:00:00 154 mm[Hg] [facility] Practice Body Weight 2019-11-09 00:00:00 194.6 [lb_av] [facility] Practice Procedures Procedure Date / Time Performing Clinician Source Performed Removal of Gallbladder 2019-07-12 00:00:00 [facility] Laparoscopic 2019-04-30 00:00:00 [facility] ly Cholecystectomy Practice Colonoscopy [facility] Bladder [facility] vidhi Practice Operation on Cervix [facility] ly Practice Breast Surgery [facility] Plan of Care Planned Activity Planned Date Details Comments Source Diagnostic Test 2021-03-21 glucose, fingerstick, Rika francisco javier Family Pending 00:00:00 blood [code = Practice glucose, fingerstick, blood] Diagnostic Test 2021-03-21 hemoglobin A1C, Village Katlyn lamas Pending 00:00:00 fingerstick [code = Practice hemoglobin A1C, fingerstick] Encounters Start End Encounter Admission Attending Care Care Encounter Source Date/Time Date/Time Type Type Clinicians Facility Department ID 2021-10-01 Outpatient Salvador, [facility] [id number] Common 13:17:00 [facility] 2021-09-18 [facility] [id number] Common 14:32:00 Mouin [id number] [facility] 2021-11-12 2021-11-12 OFFICE [facility] [id number] Co mmon 00:00:00 00:00:00 VISIT Spirit [facility] PT - CHI LEVEL 4 [facility] 2021-10-01 2021-10-01 OFFICE [facility] [id number] Co mmon 00:00:00 00:00:00 VISIT [facility] PT LEVEL 4 - [facility] 2021-03-23 2021-03-23 Outpatient Daniel_T VFP VFP [id number] [facility] 10:25:00 10:25:00 [id number] Family Practic e 2021-03-21 2021-03-21 Yurinathan Liaoel_T VFP [place] - [id number] 0 Village 00:00:00 00:00:00 [facility] [id number] Ramsey Chaudhry MD: [id number] VM_KELVIN_Nestor e [facility] [place] [facility], [address], [place] [address] , Ph. 2021-03-14 2021-03-14 Outpatient Daniel_T VFP VFP [id number] 20 [facility] 03:48:00 03:48:00 [id number] Family Practic e 2020-12-22 2020-12-22 Outpatient Daniel_T VFP VFP [id number] 20 [facility] 01:15:00 01:15:00 [id number] Family Practic e 2020-12-21 2020-12-21 Outpatient Daniel_T VFP VFP [id number] 10-30 [facility] 10:26:00 10:26:00 [id number] Family Practic e 2020-12-19 2020-12-19 Yuri Daniel_T VFP [place] - [id number] [facility] 00:00:00 00:00:00 [facility] [id number] Family RodriguezRamsey - Marcus vera MD: [id number] Angie curry Shadow ow [place] [facility], [facility] [address] [place] [address] , Ph. 2020-12-12 2020-12-12 Outpatient Daniel_T VFP VFP [id number] [facility] 11:08:00 11:08:00 [id number] Family Practic e 2020-09-26 2020-09-26 Outpatient Daniel_T VFP VFP [id number] [facility] 05:04:00 05:04:00 [id number] Family Practic e 2020-09-22 2020-09-22 Yuri Daniel_T VFP [place] - [id number] 0 [facility] 00:00:00 00:00:00 [facility] [id number] Family RodriguezRamsey - Marcus vera MD: [id number] Angie curry Shadow ow [facility], [address] [address] , Ph. 2020-09-14 2020-09-14 Outpatient Daniel_T VFP VFP [id number] [facility] 03:01:00 03:01:00 [id number] Family Practic e 2020-09-11 2020-09-11 Yuri Daniel_T VFP [place] - [id number] 0 [facility] 00:00:00 00:00:00 [facility] [id number] MichaelRamsey MD: [id number] Angie curry [facility], [facility] [address] [address] , Ph. 2020-07-28 2020-07-28 Outpatient Daniel_T VFP VFP [id number] [facility] 01:29:00 01:29:00 [id number] Family Practic e 2020-06-21 2020-06-21 Outpatient Daniel_T VFP VFP [id number] 20 [facility] 06:47:00 06:47:00 [id number] Family Practic e 2020-06-19 2020-06-19 Yurinathan Liaoel_T VFP [place] - [id number] 0 [facility] 00:00:00 00:00:00 [facility] [id number] Ramsey Rodriguez - Pracpolina vera MD: [id number] DUANE_Susu e Shadow [facility], [facility] [address] [address] , Ph. 2020-03-20 2020-03-20 Outpatient Daniel_T VFP VFP [id number] 10-30 [facility] 09:49:00 09:49:00 Family Practic e 2019-11-12 2019-11-12 Outpatient Daniel_T VFP VFP [id number] 20 [facility] 06:54:00 06:54:00 Family Practic e 2019-11-09 2019-11-09 Yuri Daniel_T VFP [place] - [id number] 0 [facility] 00:00:00 00:00:00 [facility] [id number] Ramsey Rodriguez - Marcus vera MD: [id number] вИан curry Shadow [facility], [facility] [address] [address] , Ph. 2019-10-27 2019-10-27 Outpatient Daniel_T VFP VFP [id number] 20 [facility] 10:48:00 10:48:00 [id number] Family Practic e Results Test Description Test Time Test Comments Results Result Comments Source Hemoglobin A1c measurement device panel 2021-03-21 10:07:47 Test Item Value Reference Range Interpretation Comme nts Hemoglobin A1C Fingerstick: (test code = Hemoglobin A1C Fingerstick :) 6.9 [facility] PracticeGlucose [Mass/volume] in Capillary [id number] 10:04:25 Test Item Value Reference Range Interpretation Comments Blood Glucose: mg/dl (test code = Blood 112 Glucose: mg/dl) [facility] PracticeHemoglobin A1c measurement device [id number] 11:02:48 Test Item Value Reference Range Interpretation Comments Hemoglobin A1C Fingerstick: (test code 7.2 = Hemoglobin A1C Fingerstick:) [facility] Cap[facility] [id number] 10:55:53 Test Item Value Reference Range Interpretation Comments Blood Glucose: mg/dl (test code = Blood 247 Glucose: mg/dl) [facility] & REF LABS)2019-08-04 20:55:00 Test Item Value Reference Range Interpretation Comments SARS-COV2/RT-PCR (test Not Detected Not Detected, Negative code = 2341036) SARS-COV-2 PERFORMING LAB [facility] (test code = 2944238) Negative results do not preclude SARS-CoV-2 infection and should not be used as the sole basis for patient management decisions. Negative results must be combined with clinical observations, patient history, and epidemiological information. A false negative result may occur if a specimen is improperly collected, transported or handled.The limit of detection for this assay is 250 copies/mL.This SARS CoV-2 test is a rapid, real-time RT-PCR test intended for the qualitative detection of nucleic acid from SARS-CoV-2 in a nasopharyngeal swab specimen collected from individuals suspected of COVID-19 by their healthcare provider.This test has not been Food and Drug Administration (FDA) cleared or approved and has been authorized by FDA under an Emergency Use Authorization (EUA). This EUA will be effective until the declaration that circumstances exist justifying the authorization of the emergency use of in vitro diagnostic tests for detection and/or diagnosis of COVID-19 is terminated under Section 564(b)(2) of the Act or the EUA is revoked under Section 564(g) of the Act.Fact Sheet for Healthcare Pro viders:https://[email or web address] Technology/Documents/Xpert%20Xpress%20SARS%20CoV-2/Fact%20Sh eets/3023802%57VVGL-KOT-1%20HEALTHCARE%20PROVIDERS%20FACT%20SHEET.pdfFact Sheet for Healthcare Patients:https://www.[employer]/Documents/Xpert%20Xpress%20SARS%20CoV-2/Fact%20Sheets/3023801%20SARS-COV -2%20PATIENT%20FACT%20SHEET.pdfPerforming Laboratory:[facility] [place] [address]
[2021-12-17] MEDS ORDERED: ONDANSETRON 4 MG/2 ML VIAL ONE ×2 (09:36→13:26)
[2021-12-17] MEDS ORDERED: NA CHLORIDE 0.9% 1,000 ML ONE (09:36)
--- NOTE | 2021-12-17 10:02 | RAD REPORT ---
EXAM DESCRIPTION: CT - Abdomen Pelvis Wo Contrast - 12/17/2021 9:45 am CLINICAL HISTORY: Abdominal pain COMPARISON: 2019 TECHNIQUE: Computed axial tomography of the abdomen and pelvis was obtained. IV and oral contrast we re not requested. All CT scans are performed using dose optimization technique as appropriate and may include automated exposure control or mA/KV adjustment according to patient size. FINDINGS: The evaluation of solid organs, vessels and bowel is limited secondary to the lack of con trast administration. Cholecystectomy. Small to moderate hiatal hernia Couple of small hepatic cysts. The spleen, pancreas, adrenals and left kidney grossly normal. Small right renal cyst. Hysterectomy. No adnexal mass There is no evidence of diverticulitis. IMPRESSION: No acute abnormality is displayed.
[2021-12-17 10:22] LABS: Hematocrit 42.2 % (36.0-45.0); Lymphocytes % 19.5 % (15.3-44.8); MCV 88.7 fL (80-100); MPV 8.1 fL (7.6-11.3); RBC Red Blood Cell Count 4.75 M/uL (3.86-4.86)
[2021-12-17 10:31] LABS: Albumin 3.7 g/dL (3.4-5.0); Bilirubin Total 0.5 mg/dL (0.2-1.0); Protein, Total 7.9 g/dL (6.4-8.2)
[2021-12-17] MEDS ORDERED: GABAPENTIN 300 MG CAP ONE (12:51)
--- NOTE | 2021-12-17 13:30 | ER ---
Nurse's Notes [facility] Name: Kiley Ortega Age: 76 yrs Sex: Female : 1945 Arrival Date: 12/17/2021 Time: 09:14 Bed 13 Private MD: Diagnosis: Vomiting, unspecified;Abdominal pain, unspecified Presentation: 12/17 09:15 Chief complaint: Patient states: Abd pain with N/V/D since last night. Coronavirus ll1 screen: Vaccine status: Patient reports receiving the 2nd dose of the covid vaccine. Client denies travel out of the [place] in the last 14 days. At this time, the client does not indicate any symptoms associated with coronavirus-19. Ebola Screen: Patient denies travel to an Ebola-affected area in the 21 days before illness onset. Initial Sepsis Screen: Does the patient meet any 2 criteria? No. Patient's initial sepsis screen is negative. Does the patient have a suspected source of infection? Yes: Acute abdominal pain. Risk Assessment: Do you want to hurt yourself or someone else? Patient reports no desire to harm self or others. Onset of symptoms was December 16, 2021. 09:15 Method Of Arrival: EMS ll1 09:15 Acuity: SHELLEY 3 ll1 Triage Assessment: 09:16 General: Appears uncomfortable, ill, Behavior is cooperative, appropriate for age. ll1 Pain: Complains of pain in abdomen Pain currently is 10 out of 10 on a pain scale. Quality of pain is described as aching, crampy, Pain began 1 day ago. Neuro: No deficits noted. Cardiovascular: No deficits noted. Respiratory: No deficits noted. GI: Reports lower abdominal pain, upper abdominal pain, cramping, diarrhea, nausea, vomiting. Historical: - Allergies: 09:16 Tegretol; ll1 09:16 trelegy; ll1 09:16 Iodinated Contrast Media - IV Dye; ll1 - PMHx: 09:16 Hypertension; COPD; Diabetes - NIDDM; neuropathy; Myopathy; cervical cancer; breast ll1 cancer-right side; TIA; - Immunization history:: Client reports receiving the 2nd dose of the Covid vaccine. - Social history:: Smoking status: Patient denies any tobacco usage or history of. - Family history:: not pertinent. - Hospitalizations: : No recent hospitalization is reported. Screenin:17 Abuse screen: Denies threats or abuse. Nutritional screening: No deficits noted. ll1 Tuberculosis screening: No symptoms or risk factors identified. Fall Risk IV access (20 points). Gait- Weak (10 pts.). Total Benoit Fall Scale indicates Low Risk Score (25-44 pts). Fall prevention measures have been instituted. Side Rails Up X 2 Placed close to Nursing Station Frequent Obs/Assesments occuring Family Present and informed to notify staff if they need to leave bedside As available Patient and Family Educated on Fall Prevention Program and strategies. Assessment: 10:15 Reassessment: No changes from previously documented assessment. Patient and/or family ll1 updated on plan of care and expected duration. Pain level reassessed. Patient is alert, oriented x 3, equal unlabored respirations, skin warm/dry/pink. 11:10 Reassessment: No changes from previously documented assessment. onto bedside commode. ll1 11:24 Reassessment: No changes from previously documented assessment. Patient and/or family ll1 updated on plan of care and expected duration. Pain level reassessed. Patient is alert, oriented x 3, equal unlabored respirations, skin warm/dry/pink. 12:15 Reassessment: No changes from previously documented assessment. Patient and/or family ll1 updated on plan of care and expected duration. Pain level reassessed. 13:15 Reassessment: No changes from previously documented assessment. Patient and/or family ll1 updated on plan of care and expected duration. Pain level reassessed. Patient is alert, oriented x 3, equal unlabored respirations, skin warm/dry/pink. 14:15 Reassessment: No changes from previously documented assessment. Patient and/or family ll1 updated on plan of care and expected duration. Pain level reassessed. 14:44 GI: Bowel sounds present X 4 quads. Abd is soft and non tender X 4 quads. ll1 Vital Signs: 09:15 BP 162 / 67; Pulse 103; Resp 20; Temp 98.0; Pulse Ox 95% on R/A; Height 5 ft. 2 in. ll1 (157.48 cm); Pain 10/10; 12:19 BP 134 / 51; Pulse 98; Pulse Ox 93% on R/A; ll1 13:34 BP 105 / 63; Pulse 96; Resp 20; Pulse Ox 93% on R/A; ll1 14:43 BP 144 / 57; Pulse 96; Resp 20; Pulse Ox 94% on R/A; ll1 ED Course: 09:14 Patient arrived in ED. ll1 09:16 Isael Mondragon MD is Attending Physician. rn 09:16 Triage completed. ll1 09:16 Arm band placed on Patient placed in an exam room, on a stretcher. ll1 09:17 Patient has correct armband on for positive identification. Bed in low position. Call ll1 light in reach. Side rails up X2. Client placed on continuous cardiac and pulse oximetry monitoring. NIBP monitoring applied. satellite project site monitor on. 09:18 Yariel Davis, YUNIOR is Primary Nurse. ll1 09:29 Missed attempt(s): 22 gauge in right wrist. x 2. Bleeding controlled, band aid applied, ll1 catheter tip intact. 09:33 Flu Sent. ll1 09:33 SARS-COV-2 RT PCR (Document "Date of Onset" if Symptomatic) Sent. ll1 09:35 Inserted saline lock: 24 gauge in left antecubital area, using aseptic technique. Blood ll1 collected. 09:47 CT Abd/Pelvis - Without Contrast In Process Unspecified. EDMS 13:29 Jesus Franco MD is Hospitalizing Provider. rn 14:44 No provider procedures requiring assistance completed. Patient admitted, IV remains in ll1 place. Administered Medications: 09:19 Not Given (Duplicate Order): NS 0.9% 1000 ml IV at 1 bolus Per protocol; 1000 mL bolus rn 10:15 Drug: NS 0.9% 250 ml Route: IV; Rate: bolus; Site: left wrist; ll1 11:23 Follow up: Response: No adverse reaction; IV Status: Completed infusion; IV Intake: ll1 250ml 10:16 Drug: Zofran (Ondansetron) 4 mg Route: IVP; Site: left wrist; ll1 11:23 Follow up: Response: No adverse reaction; Nausea is decreased; RASS: Alert and Calm (0) ll1 12:53 Drug: Gabapentin 300 mg Route: PO; ll1 13:24 Follow up: Response: No adverse reaction ll1 13:28 Drug: Zofran (Ondansetron) 4 mg Route: IVP; Site: left wrist; ll1 14:45 Follow up: Response: No adverse reaction; Nausea is decreased; RASS: Alert and Calm (0) ll1 Medication: 09:17 VIS not applicable for this client. ll1 Intake: 11:23 IV: 250ml; Total: 250ml. ll1 Outcome: 13:29 Decision to Hospitalize by Provider. rn 14:44 Admitted to Med/surg accompanied by tech, via stretcher, room 202. ll1 14:44 Condition: stable 14:44 Instructed on the need for admit. 14:51 Admitted to Med/surg Report called to Lucy Thompson RN ll1 14:52 Patient left the ED. 1 Signatures: Dispatcher [employer] EDIsael Ritter MD MD rn Lewis, Lynsay, RN RN [facility] Corrections: (The following items were deleted from the chart) 14:52 14:44 Instructed on the need for admit, 1 1
--- NOTE | 2021-12-17 13:30 | EDPHYS ---
Physician Documentation [facility] Name: Kiley Ortega Age: 76 yrs Sex: Female : 1945 Arrival Date: 12/17/2021 Time: 09:14 Bed 13 Private MD: ED Physician Isael Mondragon HPI: 12/17 09:22 This 76 yrs old Female presents to ER via EMS with complaints of Abdominal Pain, rn Nausea/Vomiting/Diarrhea. 09:22 The patient presents to the emergency department with nausea, vomiting, diarrhea, rn abdominal pain. Onset: The symptoms/episode began/occurred last night. Possible causes: unknown. The symptoms are aggravated by nothing. The symptoms are alleviated by nothing. Associated signs and symptoms: Pertinent positives: abdominal pain, diarrhea, nausea, vomiting, Pertinent negatives: fever, GI bleeding. Severity of symptoms: At their worst the symptoms were moderate in the emergency department the symptoms are unchanged. The patient has not experienced similar symptoms in the past. The patient has not recently seen a physician. Pt reports abd pain, nausea/vomiting/diarrhea, began last night, feels like it is because she ran out of her lyrica yesterday and states has gotten sick before when stops her lyrica. Glucose 130s per EMS, stable vitals. No blood in stool. No fever. . Historical: - Allergies: 09:16 Tegretol; ll1 09:16 trelegy; ll1 09:16 Iodinated Contrast Media - IV Dye; ll1 - PMHx: 09:16 Hypertension; COPD; Diabetes - NIDDM; neuropathy; Myopathy; cervical cancer; breast ll1 cancer-right side; TIA; - Immunization history:: Client reports receiving the 2nd dose of the Covid vaccine. - Social history:: Smoking status: Patient denies any tobacco usage or history of. - Family history:: not pertinent. - Hospitalizations: : No recent hospitalization is reported. ROS: 09:22 Constitutional: Negative for fever, chills, and weight loss, Eyes: Negative for injury, rn pain, redness, and discharge, Neck: Negative for injury, pain, and swelling, Cardiovascular: Negative for chest pain, palpitations, and edema, Respiratory: Negative for shortness of breath, cough, wheezing, and pleuritic chest pain, Abdomen/GI: + abd pain and swelling, + nausea/vomiting/diarrhea Back: Negative for injury and pain, MS/Extremity: Negative for injury and deformity, Skin: Negative for injury, rash, and discoloration, Neuro: Negative for headache, weakness, numbness, tingling, and seizure. Exam: 09:22 Constitutional: This is a well developed, well nourished patient who is awake, alert, rn holding emesis bag Head/Face: Normocephalic, atraumatic. ENT: dry MM Cardiovascular: Tachycardic, regular. No pulse deficits. Respiratory: No increased work of breathing, no retractions or nasal flaring. Abdomen/GI: soft, + tender in center of abdomen, no masses Skin: Warm, dry MS/ Extremity: Pulses equal, no cyanosis. Neuro: Awake and alert, GCS 15 Vital Signs: 09:15 BP 162 / 67; Pulse 103; Resp 20; Temp 98.0; Pulse Ox 95% on R/A; Height 5 ft. 2 in. ll1 (157.48 cm); Pain 10/10; 12:19 BP 134 / 51; Pulse 98; Pulse Ox 93% on R/A; ll1 13:34 BP 105 / 63; Pulse 96; Resp 20; Pulse Ox 93% on R/A; ll1 14:43 BP 144 / 57; Pulse 96; Resp 20; Pulse Ox 94% on R/A; ll1 MDM: 09:16 Patient medically screened. rn 13:28 Differential diagnosis: Nonspecific abd pain, gastritis, cholecystitis, pancreatitis, rn appendicitis, diverticulitis, viral gastroenteritis, gastroenteritis. Data reviewed: vital signs, nurses notes, lab test result(s), EKG, radiologic studies, CT scan, and as a result, I will admit patient. Counseling: I had a detailed discussion with the patient and/or guardian regarding: the historical points, exam findings, and any diagnostic results supporting the discharge/admit diagnosis, lab results, radiology results, the need for further work-up and treatment in the hospital. Response to treatment: There is no appreciated change of the patient's symptoms at this time, and as a result, I will admit patient. Admission orders: after a detailed discussion of the patient's condition and case, the admit orders are written by me. ED course: Pt still vomiting, not tolerating PO, will admit to Dr. Franco. . 11/07 09:18 Order name: CBC with Diff; Complete Time: 10:55 rn 12/17 09:18 Order name: CMP; Complete Time: 10:55 rn 12/17 09:18 Order name: Lipase; Complete Time: 10:55 rn 12/17 09:18 Order name: CT Abd/Pelvis - Without Contrast; Complete Time: 10:11 rn 12/17 09:18 Order name: Flu; Complete Time: 10:55 rn 12/17 09:18 Order name: SARS-COV-2 RT PCR (Document "Date of Onset" if Symptomatic); Complete Time: rn 10:55 12/17 09:18 Order name: IV Saline Lock; Complete Time: 09:19 rn 12/17 09:18 Order name: Labs collected and sent; Complete Time: 09:19 rn 12/17 09:18 Order name: EKG; Complete Time: 09:19 rn 12/17 09:18 Order name: EKG - Nurse/Tech; Complete Time: 09:29 rn Administered Medications: 09:19 Not Given (Duplicate Order): NS 0.9% 1000 ml IV at 1 bolus Per protocol; 1000 mL bolus rn 10:15 Drug: NS 0.9% 250 ml Route: IV; Rate: bolus; Site: left wrist; ll1 11:23 Follow up: Response: No adverse reaction; IV Status: Completed infusion; IV Intake: ll1 250ml 10:16 Drug: Zofran (Ondansetron) 4 mg Route: IVP; Site: left wrist; ll1 11:23 Follow up: Response: No adverse reaction; Nausea is decreased; RASS: Alert and Calm (0) ll1 12:53 Drug: Gabapentin 300 mg Route: PO; ll1 13:24 Follow up: Response: No adverse reaction ll1 13:28 Drug: Zofran (Ondansetron) 4 mg Route: IVP; Site: left wrist; ll1 14:45 Follow up: Response: No adverse reaction; Nausea is decreased; RASS: Alert and Calm (0) ll1 Disposition Summary: 12/17/21 13:29 Hospitalization Ordered Hospitalization Status: Observation rn Provider: Jesus Franco rn Location: Telemetry/MedSurg (observation) rn Condition: Stable rn Problem: new rn Symptoms: are unchanged rn Bed/Room Type: Standard rn Room Assignment: 202(12/17/21 14:27) bd Diagnosis - Vomiting, unspecified rn - Abdominal pain, unspecified rn Forms: - Medication Reconciliation Form rn - SBAR form rn Signatures: Dispatcher [employer] Simran Cristobal Roman, MD MD rn Lewis, YUNIOR Saldivar RN ll1 Corrections: (The following items were deleted from the chart) 14: 13:29 rn lauryn
[2021-12-17 15:48] VITALS: BMI 36.8
[2021-12-17] MEDS ORDERED: ONDANSETRON 4 MG/2 ML VIAL IV PRN (16:03)
[2021-12-17] MEDS ORDERED: INFLUENZA VACCINE (for 6+ mo) 0.5 ML DOSE IMVAC ONE (18:00)
--- NOTE | 2021-12-17 18:28 | P.SSS ---
Patient History Date of Service: 12/17/21 Reason for admission: NAUSEA, VOMITING, DIARRHEA History of Present Illness: JOSE IS SAYING WHENEVER SHE DOES NOT GET LYRICA SHE GOES INTO WITHDRAWAL WITH NAUSEA, VOMITING AND DIARRHEA. SAME THIS TIME. SHE WILL GET DIARRHEA. Allergies carbamazepine [From Tegretol] Allergy (Intermediate, Verified 05/17/19 14:46) Hives/Rash Iodinated Contrast Media [IV Dye, Iodine Containing Contrast ] Allergy (Intermediate, Verified 05/17/19 14:46) Hives Home medications list reviewed: Yes Home Medications: Aspirin [Aspir-Low] 81 mg PO DAILY 04/30/17 Atorvastatin Calcium [Lipitor*] 20 mg PO BEDTIME tab 06/01/19 Docusate/Senna [Senokot-S*] 2 tab PO BEDTIME PRN #60 tab 06/01/19 Pregabalin [Lyrica] 300 mg PO BID #60 cap 06/01/19 Omeprazole 20 mg PO BID #60 tablet. 04/06/20 Acetaminophen [Tylenol Extra Strength] 1,000 mg PO BEDTIME 12/17/21 Amlodipine [Norvasc] 10 mg PO DAILY 12/17/21 Diphenhydramine [Benadryl*] 50 mg PO BEDTIME 12/17/21 Fluoxetine HCl [Prozac] 40 mg PO DAILY 12/17/21 Losartan Potassium 100 tab PO DAILY 12/17/21 Metformin ER [Glucophage ER] 500 mg PO BID 12/17/21 - Past Medical/Surgical History Has patient received pneumonia vaccine in the past: Yes Diabetic: Yes -: CVA -: HTN -: TIA -: IDDM -: COPD -: BREAST AND CERVICAL CA -: ANEMIA -: DEPRESSION/ANXIETY -: HEADACHES -: Bladder Suspension sx 4 -: Left Ankle Surgery -: Stomach surgery (ureter sx) -: Breast biopsy -: appy -: hysterectomy - Family History Father -: Hypertension, Stroke Mother -: Hypertension, Diabetes - Social History Smoking Status: Never smoker Alcohol use: No CD- Drugs: No Caffeine use: Yes Place of Residence: Home Review of Systems 10-point ROS is otherwise unremarkable General: Weakness Physical Examination - Vital Signs Temperature: 98 F Blood Pressure: 158/73 Pulse: 96 Respirations: 19 Pulse Ox (%): 98 - Physical Exam General: Oriented x3, Acute distress, Mild distress HEENT: Atraumatic, PERRLA, Mucous membr. moist/pink, EOMI, Sclerae nonicteric Neck: Supple, 2+ carotid pulse no bruit, No LAD, Without JVD or thyroid abnormality Respiratory: Clear to auscultation bilaterally, Normal air movement Cardiovascular: Regular rate/rhythm, Normal S1 S2 Gastrointestinal: Normal bowel sounds, No tenderness Musculoskeletal: No tenderness Integumentary: No rashes Neurological: Normal gait, Normal speech, Normal strength at 5/5 x4 extr, Normal tone, Normal affect Lymphatics: No axilla or inguinal lymphadenopathy - Studies Laboratory Data (last 24 hrs) 12/17/21 10:05: Sodium 135 L, Potassium 4.0, BUN 13, Creatinine 0.72, Glucose 211 H, Total Bilirubin 0.5, AST 24, ALT 36, Alkaline Phosphatase 129 H, Lipase 88 12/17/21 10:05: WBC 10.40, Hgb 13.7, Hct 42.2, Plt Count 341 Microbiology Data (last 24 hrs): 12/17/21 09:30 Nasopharnyx Influenza Type A Antigen Screen - Final 12/17/21 09:30 Nasopharnyx Influenza Type B Antigen Screen - Final - Diagnosis (Problem(s)) (1) Abdominal pain Onset Date: 04/13/14 Current Visit: No Status: Acute Plan: ALL RESOLVED NOW. ABDOMEN IS SOFT NOT TENDER Qualifiers: Abdominal location: generalized Qualified Code(s): R10.84 - Generalized abdominal pain (2) Vomiting Onset Date: 04/13/14 Current Visit: No Status: Acute Plan: SHE IS BETER SHEWILL GET HE LYRICA TODAY AND WILL GET HER HOME IN AM. - Disposition Disposition: ROUTINE DISCHARGE
[2021-12-17] MEDS: D5 0.45 NS 1,000 ML IV SCH (18:52)
[2021-12-17] MEDS: PREGABALIN 150 MG CAP PO SCH (20:37)
[2021-12-17] MEDS: PANTOPRAZOLE 40MG TABLET PO SCH (20:39)
[2021-12-17] MEDS: ENOXAPARIN 40 MG/0.4 ML SQ SCH (20:40)
[2021-12-17] MEDS ORDERED: DIPHENHYDRAMINE 25 MG TAB/CAP PO SCH (21:00)
[2021-12-17] MEDS ORDERED: ACETAMINOPHEN 500 MG TAB PO SCH (21:00)
[2021-12-17] MEDS ORDERED: ATORVASTATIN 20 MG TAB PO SCH (21:00)
[2021-12-17] MEDS ORDERED: HOME MED 1 EA UNK (Omeprazole [Omeprazole] 20 MG Tablet.Dr) PO SCH (21:00)
[2021-12-18 02:50] VITALS: O2SAT 93
[2021-12-18 06:44] LABS: Absolute Lymphocytes (CBC) 2.5 K/uL (0.7-4.9); Hematocrit 40.4 % (36.0-45.0); Lymphocytes % 38.4 % (15.3-44.8); MCV 89.2 fL (80-100); MPV 8.2 fL (7.6-11.3); RBC Red Blood Cell Count 4.53 M/uL (3.86-4.86)
[2021-12-18 06:48] LABS: Potassium 3.6 mmol/L (3.5-5.1)
[2021-12-18] MEDS: ENOXAPARIN 40 MG/0.4 ML SQ SCH (07:57)
[2021-12-18] MEDS: PREGABALIN 150 MG CAP PO SCH (07:58)
[2021-12-18] MEDS: PANTOPRAZOLE 40MG TABLET PO SCH (07:59)
[2021-12-18] MEDS ORDERED: METFORMIN ER 500 MG TAB PO SCH (08:00)
[2021-12-18] MEDS: D5 0.45 NS 1,000 ML IV SCH (08:03)
[2021-12-18] MEDS ORDERED: ASPIRIN EC 81 MG TAB PO SCH (09:00)
[2021-12-18] MEDS ORDERED: HOME MED 1 EA UNK (Losartan Potassium [Losartan Potassium] 100 MG Tablet) PO SCH (09:00)
[2021-12-18] MEDS ORDERED: FLUOXETINE 20 MG CAP PO SCH (09:00)
[2021-12-18] MEDS ORDERED: LOSARTAN POTASSIUM 50 MG TABLET PO SCH (09:00)
[2021-12-18] MEDS ORDERED: HOME MED 1 EA UNK (Fluoxetine Hcl [Prozac] 40 MG Capsule) PO SCH (09:00)
[2021-12-18] MEDS ORDERED: AMLODIPINE 10 MG TAB PO SCH (09:00)
[2021-12-18 13:34] VITALS: BP 119/52; TEMP 97.2
--- NOTE | 2021-12-18 13:58 | EKG ---
Test Date: 2021-12-17 Test Time: 09:31:43 Foster Parent: JIM MEASUREMENT RESULTS: Intervals: Rate: 97 MD: 162 QRSD: 66 QT: 356 QTc: 452 [place]: P: 79 MD: 162 QRS: 22 T: 72 INTERPRETIVE STATEMENTS: Normal sinus rhythm Normal ECG Compared to ECG 04/03/2020 16:10:39 Sinus arrhythmia no longer present Electronically Signed On 12-18-21 13:56:05 MOLDING MANAGER by Eliazar Bergeron
== END 2021-12-18 14:21 | disposition home or self-care (01) ==
LOC: ER 09:13 → ERHOLD 14:16 → 2ND 14:51
PROVIDERS: ADMIT Internal Medicine; ATTEND Internal Medicine
DX: R11.2 Nausea with vomiting, unspecified (principal); R10.84 Generalized abdominal pain; I10 Essential (primary) hypertension; J44.9 Chronic obstructive pulmonary disease, unspecified; E11.9 Type 2 diabetes mellitus without complications; Z23 Encounter for immunization; Z20.822 Contact with and (suspected) exposure to COVID-19; Z86.73 Personal history of transient ischemic attack (TIA), and cerebral infarction without residual deficits; Z85.41 Personal history of malignant neoplasm of cervix uteri; Z85.3 Personal history of malignant neoplasm of breast
CPT/HCPCS: 96365; 93005; 85025 ×2; 80048; 36415; 82947 ×3; 83690; 80053; 87804 ×2; 74176; 96375; 99285; U0003; J1650 ×2; J7799 ×2; J7030; J2405 ×3; G0378 ×3

== ENCOUNTER 2021-12-19 08:40 | Emergency (ER) | payer OTHER ==
--- OUTSIDE RECORDS SUMMARY | 2021-12-19 08:45 | XMS REPORT | Continuity of Care Document ---
:1945 Author Organization [facility] t Address [address] [place] [address] [address]. [address] [place] [address] Care Team Providers Name Role Phone Jesus Franco Attending Clinician Unavailable Shivani Anguiano Attending Clinician Unavailable Michael_Filiberto Attending Clinician Unavailable Michael Admitting Clinician Unavailable Payers Payer Name Policy Type Policy Number Effective Date Expiration Date S sha [place] [id number] [facility] [id number] HEALTHCARE Problems Condition Condition Condition Status Onset Resolution Last Treating Co mments Source Name Details Category Date Date Treatment Clinician Date 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 Polycythem -13 [facility] 00:00: Practic 00 e Administra Administra Problem Active 2020-02 [facility] tion of tion of 1-09 Family influenza Influenza 00:00: Prac tic vaccine Vaccine 00 e 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 5-10 Family mellitus Mellitus 00:00: Practi c 00 e History of History of Problem Active [facility] SARS-CoV-2 SARS-CoV-2 5-10 [facility] 00:00: Practic 00 e Neuropathy Neuropathy [...] 00 e Senile Senile Problem Active 2017-02 [facility] osteoporos Osteoporos 2-13 Fa mary is is [...] 00 e Chronic Chronic Problem Active 2016-02 [facility]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 00:00: Pr actic disorder, Disorder, 00 e single Single episode Episode Chronic Chronic Problem Active 2016-02 [facility] pain Pain 2-14 Family 00:00: Practic 00 e Essential Essential Problem Active 2016-02 Rika francisco javier hypertensi Hypertensi 2-14 Trey hernandez on on 00:00: Practic 00 e Chronic Chronic Problem Active 2016-02 [facility] obstructiv Obstructiv 2-14 Trey hernanedz e lung e Lung 00:00: Practic disease Disease 00 e [id number] Boil Problem [facility] [id number] Dysuria Problem [facility] [id number] Menopausal Problem Com mon vaginal [facility] Allergies, Adverse Reactions, Alerts Allergy Allergy Status Severity Reaction(s) Onset Inactive Treating Comm ents Source Name Type Date Date Clinician carbamaz carbamaz Active hives Common epine epine [facility] Iodine Allergy Active [facility] substanc Practic e e Tegretol Allergy Active [facility] substan Practic e e 463 Drug Active nausea,diff Commo n allergy breathing [facility] Social History Social Habit Start Date Stop Date Quantity Comments Source History of Tobacco [facility] Use [facility] Sex Assigned At [birth year] [facility] 00:00:00 [facility]00 [facility] Smoking Status Start Date Stop Date Source Never Smoker [facility] Medications Ordered Filled Start Stop Current Ordering Indication Dosage Frequency Signature Comments Components Source Medication Medication Date Date Medication? Clinician (SIG) Name Name Bupivicaine Bupivicaine 2021-0 No 5mg [facility] [place] [facility] 00:00: [facility] Pepealog Pepealog 2021-0 No 40mg Common (Triamcinol (Triamcinol 8-22 S pirit one) one) 00:00: [facility] Bupivicaine Bupivicaine 2021-0 No 5mg [facility] [place] [facility] [facility] 00:00: - [facility] Kenalog Kenalog 2021-0 No 40mg Common (Triamcinol (Triamcinol 8-22 S pirit one) one) 00:00: [facility] Bupivicaine Bupivicaine 2021-0 No 5mg [facility] [place] 8[place] [facility] 00:00: - [facility] Gudelia Cantualog 0 No 40mg Common (Triamcinol (Triamcinol 8-22 S pirit one) one) 00:00: - [facility] acetaminoph acetaminoph No 2capsul Q6H acetaminop [facility] en 500 mg en 500 mg e(s) hen 500 mg Family capsule capsule capsule Practi c Take 2 Take 2 Take 2 e capsules capsules capsules every 6 every 6 every 6 hours by hours by hours by oral route oral route oral route as needed. as needed. as needed. Adult Adult No 1 Q1D Adult [facility] Aspirin Aspirin Aspirin Family Regimen 81 Regimen 81 Regimen 81 Practic mg mg mg e tablet,helen tablet,helen tablet,del yed release yed release ayed Take 1 Take 1 release tablet tablet Take 1 every day every day tablet by oral by oral every day route in route in by oral the the route in morning. morning. the morning. amlodipine amlodipine No 1 Q1D amlodipine [facility] 5 mg tablet 5 mg tablet 5 mg F amily Take 1 Take 1 tablet Practic tablet tablet Take 1 e every day every day tablet by oral by oral every day route in route in by oral the the route in morning. morning. the morning. atorvastati atorvastati No atorvastat [facility] n 20 mg n 20 mg in [...] No 1needle Q1D Comfort EZ [place] Pen [place] Pen Derby (s) Pen F amily 32 gauge x 32 gauge x [place] 32 Practic 06/25" Take 06/25" Take gauge x e 1 needle 1 needle 06/25" Take every day every day 1 needle by miscell. by miscell. every day route as route as by directed. directed. miscell. route as directed. diphenhydra diphenhydra No 1capsul Q8H diphenhydr [facility] mine 25 mg mine 25 mg e(s) amine 25 Family capsule capsule mg capsule Pra ctic Take 1 Take 1 Take 1 e capsule capsule capsule every 8 every 8 every 8 hours by hours by hours by oral route oral route oral route as as as directed. directed. directed. fluoxetine fluoxetine No 1capsul Q1D fluoxetine [facility] 40 mg 40 mg e(s) 40 mg Family capsule capsule capsule Practi c Take 1 Take 1 Take 1 e capsule capsule capsule every day every day every day by oral by oral by oral route at route at route at bedtime. bedtime. bedtime. ipratropium ipratropium No 2.5mL Q6H ipratropiu [facility] bromide bromide m bromide Fami ly 0.02 [...] days. omeprazole omeprazole No 1 Q1D omeprazole [facility] 20 mg 20 mg 20 mg Family [...] MG 100 MG Docusate Docusate No Docusate Sodium-Hubbard Sodium-Hubbard Sodium-Herman nthranol nthranol anthranol Aspirin 81 Aspirin [...] SoloStar SoloStar SoloStar Docusate Docusate No Docusate Sodium-[place]bard Sodium-Hubbard Sodium-Herman nthranol nthranol anthranol Lyrica Lyrica No [...] MG 100 MG Docusate Docusate No Docusate Sodium-Hubbard Sodium-Hubbard Sodium-Herman nthranol nthranol anthranol Aspirin 81 Aspirin [...] Name influenza, high-dose, influenza, high-dose, 2020-12-19 Completed [place] quadrivalent quadrivalent 12:00:38 Practice Non-US Vaccine Non-US Vaccine 2020-09-06 Completed [facility] Family COVID-19 PS COVID-19 PS 00:00:00 Practice (EpiVacCorona) (EpiVacCorona) COVID-19, mRNA, COVID-19, mRNA, 2020-08-10 Completed [facility] Family LNP-S, PF, 100 LNP-S, PF, 100 00:00:00 Practi ce mcg/0.5 mL dose mcg/0.5 mL dose (Moderna) (Moderna) pneumococcal pneumococcal 2018-02-10 Completed [facility] mary polysaccharide PPV23 polysaccharide PPV23 00:00:00 Practice influenza, influenza, 2018-02-10 Completed [place] injectable, injectable, 00:00:00 Practice quadrivalent quadrivalent Vital Signs Vital Name Observation Time Observation Value Comments Source height 2021-11-12 13:15:00 62 [in_i] [facility] weight 2021-11-12 13:15:00 205.4 [lb_av] [facility] temperature 2021-11-12 13:15:00 97.3 [degF] [facility] bmi 2021-11-12 13:15:00 37.56 kg/m2 [facility] blood pressure 2021-11-12 13:15:00 146 mm[Hg] [facility] - systolic [facility] blood pressure 2021-11-12 13:15:00 86 mm[Hg] [facility] - diastolic [facility] height 2021-10-01 13:30:00 62 [in_i] Common [facility] weight 2021-10-01 13:30:00 198.5 [lb_av] [facility] - [facility] temperature 2021-10-01 13:30:00 97.3 [degF] Common [facility] bmi 2021-10-01 13:30:00 36.3 kg/m2 Common [facility] blood pressure 2021-10-01 13:30:00 128 mm[Hg] [facility] - systolic [facility] blood pressure 2021-10-01 13:30:00 74 mm[Hg] [facility] - diastolic [facility] BP Diastolic 2021-03-21 00:00:00 76 mm[Hg] [facility] Height 2021-03-21 00:00:00 62 [in_i] [facility] BMI (Body Mass Index) 2021-03-21 00:00:00 35.7 kg/m2 [facility] Family Practice BP Systolic 2021-03-21 00:00:00 140 mm[Hg] [facility] Body Weight 2021-03-21 00:00:00 195 [lb_av] [facility] Practice BP Diastolic 2020-12-19 00:00:00 77 [...] (Body Mass Index) 2020-09-22 00:00:00 36.2 kg/m2 [facility] BP Systolic 2020-09-22 00:00:00 124 mm[Hg] [facility] Body Weight 2020-09-22 00:00:00 198 [lb_av] [facility] BP Diastolic 2020-09-11 00:00:00 79 mm[Hg] [facility] Height 2020-09-11 00:00:00 62 [in_i] [facility] BMI (Body Mass Index) 2020-09-11 00:00:00 35.8 kg/m2 [facility] BP Systolic 2020-09-11 00:00:00 141 mm[Hg] [facility] Body Weight 2020-09-11 00:00:00 196 [lb_av] [facility] BP Diastolic 2020-06-19 00:00:00 80 mm[Hg] [facility] Height 2020-06-19 00:00:00 62 [in_i] [facility] BMI (Body Mass Index) 2020-06-19 00:00:00 35.8 kg/m2 [facility] BP Systolic 2020-06-19 00:00:00 134 mm[Hg] [facility] Body Weight 2020-06-19 00:00:00 196 [lb_av] [facility] BP Diastolic 2019-11-09 00:00:00 64 mm[Hg] [facility] Height 2019-11-09 00:00:00 62 [in_i] [facility] BMI (Body Mass Index) 2019-11-09 00:00:00 35.6 kg/m2 [facility] BP Systolic 2019-11-09 00:00:00 154 mm[Hg] [facility] Body Weight 2019-11-09 00:00:00 194.6 [lb_av] [facility] [facility] Practice Procedures Procedure Date / Time Performing Clinician Source Performed Removal of Gallbladder 2019-07-12 00:00:00 [facility] Laparoscopic 2019-04-30 00:00:00 [place] [facility] [place] [facility] michael Cholecystectomy Practice Colonoscopy [facility] Procedure on Kidney [facility] Fany rodriguez Practice Procedure on Bladder [facility] vidhi Practice Operation on Cervix [facility] Fany rodriguez Practice Breast Surgery [facility] Plan of Care Planned Activity Planned Date Details Comments Source Diagnostic Test 2021-03-21 glucose, fingerstick, Rika Laboy Pending 00:00:00 blood [code = Practice glucose, fingerstick, blood] Diagnostic Test 2021-03-21 hemoglobin A1C, Rosa lamas Pending 00:00:00 fingerstick [code = Practice hemoglobin A1C, fingerstick] Encounters Start End Encounter Admission Attending Care Care Encounter Source Date/Time Date/Time Type Type Clinicians Facility Department ID 2021-10-01 Outpatient Salvador, [facility] [id number] Common 13:17:00 [facility] 2021-09-18 Outpatient Annmarie, [facility] [id number] Common 14:32:00 M[place] [facility] 2021-11-12 2021-11-12 OFFICE [facility] [id number] Co mmon 00:00:00 00:00:00 VISIT Spirit ESTAB PT - CHI LEVEL 4 [facility] 2021-10-01 2021-10-01 OFFICE [facility] [id number] Co mmon 00:00:00 00:00:00 VISIT NEW Spir it PT LEVEL 4 - [facility] 2021-03-23 2021-03-23 Outpatient Daniel_T VFP VFP [id number] [facility] 10:25:00 10:25:00 [id number] Family Practic e 2021-03-21 2021-03-21 Yuri Rodriguez_T VFP [place] - [id number] [facility] 00:00:00 00:00:00 [facility] [id number] Ramsey Chaudhry - Marcus vera MD: [id number] VM_KELVIN_Nestor e [place] [facility], [address], [place] [address] , Ph. 2021-03-14 2021-03-14 Outpatient Daniel_T VFP VFP [id number] [facility] 03:48:00 03:48:00 [id number] Family Practic e 2020-12-22 2020-12-22 Outpatient Daniel_T VFP VFP [id number] [facility] 01:15:00 01:15:00 [id number] Family Practic e 2020-12-212020-12-21 Outpatient Daniel_T VFP VFP [id number] 10-30 [facility] 10:26:00 10:26:00 [id number] Family Practic e 2020-12-19 2020-12-19 Yuri Daniel_T VFP [place] - [id number] [facility] 00:00:00 00:00:00 [facility] [id number] Family RodriguezRamsey MD: [id number] Angie curry [place] [facility], [address], [place] [address] , Ph. 2020-12-12 2020-12-12 Outpatient Daniel_T VFP VFP [id number] 10-30 [facility] 11:08:00 11:08:00 [id number] Family Practic e 2020-09-26 2020-09-26 Outpatient Daniel_T VFP VFP [id number] [facility] 05:04:00 05:04:00 [id number] Family Practic e 2020-09-22 2020-09-22 Yuri Daniel_T VFP [place] - [id number] [facility] 00:00:00 00:00:00 [facility] [id number] Family RodriguezRamsey MD: [id number] Angie curry [facility], [facility] [address], [place] [address] , Ph. 2020-09-14 2020-09-14 Outpatient Daniel_T VFP VFP [id number] 10-30 [facility] 03:01:00 03:01:00 [id number] Family Practic e 2020-09-11 2020-09-11 Yuri Daniel_T VFP [place] - [id number] [facility] 00:00:00 00:00:00 [facility] [id number] Ramsey Rodriguez MD: [id number] Angie curry Shadow [facility], [facility] [address], [place] [address] , Ph. 2020-07-28 2020-07-28 Outpatient Daniel_T VFP VFP [id number] 10-30 [facility] 01:29:00 01:29:00 [id number] Family Practic e 2020-06-21 2020-06-21 Outpatient Daniel_T VFP VFP [id number] 20 [facility] 06:47:00 06:47:00 [id number] Family Practic e 2020-06-19 2020-06-19 Yuri Daniel_T VFP [place] - [id number] Village 00:00:00 00:00:00 [facility] [id number] Ramsey Rodriguez MD: [id number] DUANE_Susu e Shadow [facility], [facility] [address], [place] [address] , Ph. 2020-03-20 2020-03-20 Outpatient Daniel_T VFP VFP [id number] 10-30 [facility] 09:49:00 09:49:00 Family Practic e 2019-11-12 2019-11-12 Outpatient Daniel_T VFP VFP [id number] 10-30 [facility] 06:54:00 06:54:00 Family Practic e 2019-11-09 2019-11-09 Yuri Daniel_T VFP [place] - [id number] [facility] 00:00:00 00:00:00 [facility] [id number] Ramsey Rodriguez MD: [id number] DUANE_Jimena e Shadow [facility], [address], [place] [address] , Ph. 2019-10-27 2019-10-27 Outpatient Daniel_T VFP VFP [id number] 10-30 [facility] 10:48:00 10:48:00 [id number] Family Practic e Results Test Description Test Time Test Comments Results Result Comments Source Hemoglobin A1c measurement device panel 2021-03-21 10:07:47 Test Item Value Reference Range Interpretation Comme nts Hemoglobin A1C Fingerstick: (test code = Hemoglobin A1C Fingerstick :) 6.9 [place] PracticeGlucose [Mass/volume] in Capillary [id number] 10:04:25 Test Item Value Reference Range Interpretation Comments Blood Glucose: mg/dl (test code = Blood 112 Glucose: mg/dl) [facility] [place] PracticeHemoglobin A1c measurement device [id number] 11:02:48 Test Item Value Reference Range Interpretation Comments Hemoglobin A1C Fingerstick: (test code 7.2 = Hemoglobin A1C Fingerstick:) [facility]] in Capillary [id number] 10:55:53 Test Item Value Reference Range Interpretation Comments Blood Glucose: mg/dl (test code = Blood 247 Glucose: mg/dl) [facility])2019-08-04 20:55:00 Test Item Value Reference Range Interpretation Comments SARS-COV2/RT-PCR (test Not Detected Not Detected, Negative code = 0399553) SARS-COV-2 PERFORMING LAB [facility] (test code = 7172144) Negative results do not preclude SARS-CoV-2 infection [...] of the Act.Fact Sheet for Healthcare Pro viders:https://www.Motorpaneer.Netskope/Documents/Xpert%20Xpress%20SARS%20CoV-2/Fact%20Sh eets/3023802%35BXXS-OHT-0%20HEALTHCARE%20PROVIDERS%20FACT%20SHEET.pdfFact Sheet for Healthcare Patients:https://www.[employer].Netskope/Documents/Xpert%20Xpress%20SARS%20CoV-2/Fact%20Sheets/3023801%20SARS-COV -2%20PATIENT%20FACT%20SHEET.pdfPerforming Laboratory:[facility] [place] [address]
--- NOTE | 2021-12-19 09:01 | ER ---
Nurse's Notes [facility] Name: Kiley Ortega Age: 76 yrs Sex: Female : 1945 Arrival Date: 12/19/2021 Time: 08:43 Bed 19 Private MD: Jesus Franco V Diagnosis: Chronic pain, not elsewhere classified Presentation: 12/19 08:50 Chief complaint: Patient states: I'm on this drug called Gentry and I've been calling iw and trying to get a prescription, I was admitted Friday night and they gave me dose Friday night and one yesterday morning and I went home without any of it and I still don't have a prescription for it, I've been on it a long time. Coronavirus screen: At this time, the client does not indicate any symptoms associated with coronavirus-19. Ebola Screen: Patient negative for fever greater than or equal to 101.5 degrees Fahrenheit, and additional compatible Ebola Virus Disease symptoms Patient denies exposure to infectious person. Patient denies travel to an Ebola-affected area in the 21 days before illness onset. No symptoms or risks identified at this time. Initial Sepsis Screen: Does the patient meet any 2 criteria? No. Patient's initial sepsis screen is negative. Does the patient have a suspected source of infection? No. Patient's initial sepsis screen is negative. Risk Assessment: Do you want to hurt yourself or someone else? Patient reports no desire to harm self or others. Onset of symptoms was December 19, 2021. 08:50 Method Of Arrival: Ambulatory iw 08:50 Acuity: SHELLEY 3 iw Triage Assessment: 09:17 General: Appears uncomfortable, Behavior is cooperative, appropriate for age. ll1 Historical: - Allergies: 08:52 Iodinated Contrast Media - IV Dye; iw 08:52 Tegretol; iw 08:52 trelegy; iw - Home Meds: 08:52 Januvia Oral [Active]; amlodipine 10 mg tab for Hypertension [Active]; aspirin 81 mg iw Oral TbEC 1 tab once daily [Active]; atorvastatin 20 mg Oral tab 1 tab once daily [Active]; Benadryl 25 mg Oral cap 1 cap twice a day [Active]; fluxetine 40 mg once daily [Active]; Glimepiride Oral [Active]; Insulin: Humalog Sub-Q [Active]; losartan 100 mg Oral tab 1 tab once daily for Hypertension [Active]; Lyrica 300mg Oral 1 cap 2 times per day for Diabetic Peripheral Neuropathy [Active]; metformin 500 mg Oral tab 2 tabs 2 times per day for Type 2 Diabetes Mellitus [Active]; omeprazole 40 mg Oral cpDR 1 cap once daily for Gastroesophageal reflux [Active]; pregabalin 300 mg Oral 1 cap 2 times per day [Active]; tylenol 500 mg twice a day [Active]; - PMHx: 08:52 breast cancer-right side; COPD; cervical cancer; neuropathy; Hypertension; TIA; iw Myopathy; Diabetes - NIDDM; - Immunization history:: Client reports receiving the 2nd dose of the Covid vaccine. - Social history:: Smoking status: Patient denies any tobacco usage or history of. Screenin:58 Abuse screen: Denies threats or abuse. Nutritional screening: No deficits noted. ll1 Tuberculosis screening: No symptoms or risk factors identified. Fall Risk Total Benoit Fall Scale indicates No Risk (0-24 pts). Assessment: 08:59 General: Appears uncomfortable, Behavior is cooperative, appropriate for age. ll1 08:59 Pain: Complains of pain in abdomen Quality of pain is described as aching. Neuro: No ll1 deficits noted. Cardiovascular: No deficits noted. GI: Abdomen is round Reports cramping, nausea, vomiting. Musculoskeletal: Reports pain in all over. 09:17 Reassessment: No changes from previously documented assessment. Patient and/or family ll1 updated on plan of care and expected duration. Pain level reassessed. Patient is alert, oriented x 3, equal unlabored respirations, skin warm/dry/pink. Vital Signs: 08:50 BP 131 / 108; Pulse 88; Resp 16; Temp 98.4; Pulse Ox 95% on R/A; iw ED Course: 08:43 Patient arrived in ED. mr 08:43 Jesus Franco MD is Private Physician. mr 08:46 Tamara Burns FNP-C [facility]. snw 08:46 Vinh Gee MD is Attending Physician. snw 08:52 Triage completed. iw 08:52 Arm band placed on. iw 08:53 Yariel Davis RN is Primary Nurse. ll1 08:58 Patient placed in an exam room, on a stretcher. ll1 08:58 Patient has correct armband on for positive identification. Bed in low position. Call ll1 light in reach. Side rails up X2. Client placed on continuous cardiac and pulse oximetry monitoring. NIBP monitoring applied. 09:00 Jesus Franco MD is Referral Physician. snw 09:17 No provider procedures requiring assistance completed. Patient did not have IV access ll1 during this emergency room visit. Administered Medications: 09:10 Drug: Lyrica (pregabalin) 100 mg Route: PO; ll1 09:17 Follow up: Response: No adverse reaction ll1 Medication: 08:59 VIS not applicable for this client. ll1 Outcome: 09:00 Discharge ordered by . snw 09:17 Patient left the ED. ll1 09:17 Discharged to home via wheelchair. ll1 09:17 Condition: stable 09:17 Discharge instructions given to patient, Instructed on discharge instructions, follow up and referral plans. medication usage, Demonstrated understanding of instructions, follow-up care, medications, Prescriptions given X 1. Signatures: Tamara Burns, COOKIE BREAKER-C COOKIE BREAKER-Csnw Melodie Valenzuela Ivis Johnson, RN RN iw Yariel Davis RN RN ll1 Corrections: (The following items were deleted from the chart) 11:19 08:59 General: Appears uncomfortable, Behavior is cooperative, appropriate for age, ll1 ll1
--- NOTE | 2021-12-19 09:01 | EDPHYS ---
Physician Documentation [facility] Name: Kiley Ortega Age: 76 yrs Sex: Female : 1945 Arrival Date: 12/19/2021 Time: 08:43 Bed 19 Private MD: Jesus Franco V ED Physician Vinh Gee HPI: 12/19 09:07 This 76 yrs old Female presents to ER via Ambulatory with complaints of Medication snw Refill. 09:07 The patient presents to the emergency department requesting refill(s) for: lyrica. The snw patient chronically suffers from myopathy, neuropathy. The patient has experienced similar episodes in the past. The patient has been recently been admitted at [facility], was discharged yesterday, for similar complaints, has appt with Dr. Franco at 1300. Historical: - Allergies: 08:52 Iodinated Contrast Media - IV Dye; iw 08:52 Tegretol; iw 08:52 trelegy; iw - Home Meds: 08:52 Januvia Oral [Active]; amlodipine 10 mg tab for Hypertension [Active]; aspirin 81 mg iw Oral TbEC 1 tab once daily [Active]; atorvastatin 20 mg Oral tab 1 tab once daily [Active]; Benadryl 25 mg Oral cap 1 cap twice a day [Active]; fluxetine 40 mg once daily [Active]; Glimepiride Oral [Active]; Insulin: Humalog Sub-Q [Active]; losartan 100 mg Oral tab 1 tab once daily for Hypertension [Active]; Lyrica 300mg Oral 1 cap 2 times per day for Diabetic Peripheral Neuropathy [Active]; metformin 500 mg Oral tab 2 tabs 2 times per day for Type 2 Diabetes Mellitus [Active]; omeprazole 40 mg Oral cpDR 1 cap once daily for Gastroesophageal reflux [Active]; pregabalin 300 mg Oral 1 cap 2 times per day [Active]; tylenol 500 mg twice a day [Active]; - PMHx: 08:52 breast cancer-right side; COPD; cervical cancer; neuropathy; Hypertension; TIA; iw Myopathy; Diabetes - NIDDM; - Immunization history:: Client reports receiving the 2nd dose of the Covid vaccine. - Social history:: Smoking status: Patient denies any tobacco usage or history of. ROS: 09:10 Constitutional: Negative for fever, chills, and weight loss, Eyes: Negative for injury, snw pain, redness, and discharge, ENT: Negative for injury, pain, and discharge, Neck: Negative for injury, pain, and swelling, Cardiovascular: Negative for chest pain, palpitations, and edema, Respiratory: Negative for shortness of breath, cough, wheezing, and pleuritic chest pain, Abdomen/GI: Positive for abdominal pain, nausea, vomiting, Denies diarrhea and constipation, Back: Negative for injury and pain, Skin: Negative for injury, rash, and discoloration, Neuro: Negative for headache, weakness, numbness, tingling, and seizure. 09:10 MS/extremity: Positive for pain, of the "everywhere". Exam: 09:11 Head/Face: Normocephalic, atraumatic. Eyes: Pupils equal round and reactive to light, snw extra-ocular motions intact. Lids and lashes normal. Conjunctiva and sclera are non-icteric and not injected. Cornea within normal limits. Periorbital areas with no swelling, redness, or edema. Cardiovascular: Regular rate and rhythm with a normal S1 and S2. No gallops, murmurs, or rubs. Normal PMI, no JVD. No pulse deficits. Respiratory: Lungs have equal breath sounds bilaterally, clear to auscultation and percussion. No rales, rhonchi or wheezes noted. No increased work of breathing, no retractions or nasal flaring. 09:11 Back: No spinal tenderness. No costovertebral tenderness. Full range of motion. Skin: Warm, dry with normal turgor. Normal color with no rashes, no lesions, and no evidence of cellulitis. MS/ Extremity: Pulses equal, no cyanosis. Neurovascular intact. Full, normal range of motion. Neuro: Awake and alert, GCS 15, oriented to person, place, time, and situation. Cranial nerves II-XII grossly intact. Motor strength 5/5 in all extremities. Sensory grossly intact. Cerebellar exam normal. Normal gait. 09:11 Constitutional: The patient appears alert, anxious. 09:11 Abdomen/GI: Inspection: abdomen appears normal, Bowel sounds: normal, Palpation: moderate abdominal tenderness, in all quadrants. 09:11 Psych: Behavior/mood is anxious. Vital Signs: 08:50 BP 131 / 108; Pulse 88; Resp 16; Temp 98.4; Pulse Ox 95% on R/A; iw MDM: 08:59 Patient medically screened. snw 09:09 Data reviewed: vital signs, nurses notes. Data interpreted: Pulse oximetry: on room air snw is 95 %. Interpretation: acceptable. Counseling: I had a detailed discussion with the patient and/or guardian regarding: the historical points, exam findings, and any diagnostic results supporting the discharge/admit diagnosis, the need for outpatient follow up, for definitive care. Response to treatment: There is no appreciated change of the patient's symptoms at this time. Special discussion: Based on the history and exam findings, there is no indication for further emergent testing or inpatient evaluation. I discussed with the patient/guardian the need to see the primary care provider for further evaluation of the symptoms. Administered Medications: 09:10 Drug: Lyrica (pregabalin) 100 mg Route: PO; ll1 09:17 Follow up: Response: No adverse reaction ll1 Disposition: 10:57 Co-signature as Attending Physician, Vinh Gee MD I agree with the assessment and kdr plan of care. Disposition Summary: 12/19/21 09:00 Discharge Ordered Location: Home snw Condition: Stable snw Diagnosis - Chronic pain, not elsewhere classified snw Followup: snw - With: Emergency Department - When: As needed - Reason: Worsening of condition Followup: snw - With: - When: 1 - 2 days - Reason: Recheck today's complaints, Continuance of care, Re-evaluation by your physician Discharge Instructions: - Discharge Summary Sheet snw - Chronic Pain, Adult snw Forms: - Medication Reconciliation Form snw - Thank You Letter snw - Antibiotic Education snw - Prescription Opioid Use snw Prescriptions: - Lyrica 100 mg Oral Capsule - take 1 capsule by ORAL route every 8 hours As needed; 30 capsule; Refills: 0, snw Product Selection Permitted Signatures: Vinh Gee MD MD kdr Waters, Shelly, FNP-Leonard DIRECTOR OF CURRICULUM AND INSTRUCTION-Csnw Ivis Johnson, RN RN iw Yariel Davis RN RN ll1
[2021-12-19] MEDS ORDERED: PREGABALIN 50 MG CAP ONE (09:04)
[2021-12-19 09:21] VITALS: BP 131/108; TEMP 98.4; O2SAT 95
== END 2021-12-19 09:17 | disposition home or self-care (01) ==
LOC: ER 08:40
DX: G89.29 Other chronic pain (principal); E11.9 Type 2 diabetes mellitus without complications; I10 Essential (primary) hypertension; Z88.8 Allergy status to other drugs, medicaments and biological substances; Z91.041 Radiographic dye allergy status
CPT/HCPCS: 99283

== ENCOUNTER 2021-12-22 05:21 | Emergency (ER) | payer OTHER ==
--- OUTSIDE RECORDS SUMMARY | 2021-12-22 05:25 | XMS REPORT | Continuity of Care Document ---
:1945 Author Organization [facility] t Address [address] [place] [address] [address]. [address] [place] [address] Care Team Providers Name Role Phone Jesus Franco Attending Clinician Unavailable Shivani Angiuano Attending Clinician Unavailable Michael_Filiberto Attending Clinician Unavailable Michael Admitting Clinician Unavailable Payers Payer Name Policy Type Policy Number Effective Date Expiration Date S sha [place] [id number] Common HEALTHC[facility] Spirit [facility] [id number] HEALTHCARE Problems Condition Condition Condition Status Onset Resolution Last Treating Co mments Source Name Details Category Date Date Treatment Clinician Date 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, Disorder, 00 e single Single episode Episode Chronic Chronic Problem Active 2016-02 [facility] pain Pain 2-14 Family 00:00: Practic 00 e Essential Essential Problem Active 2016-02 Rika francisco javier hypertensi Hypertensi 2-14 Trey hernandez on on 00:00: Practic 00 e Chronic Chronic Problem Active 2016-02 [facility] obstructiv Obstructiv 2-14 Trey hernandez e lung e Lung 00:00: Practic disease Disease 00 e [id number] Boil Problem [facility] [id number] Dysuria Problem [facility] [id number] Menopausal Problem Com mon vaginal [facility] Allergies, Adverse Reactions, Alerts Allergy Allergy Status Severity Reaction(s) Onset Inactive Treating Comm ents Source Name Type Date Date Clinician carbamaz carbamaz Active hives Common epine epine [facility] Iodine Allergy Active [facility] to Family substanc Practic e e Tegretol Allergy Active [facility] to Family substan Practic e e 463 Drug Active nausea,diff Commo n allergy breathing [facility] Social History Social Habit Start Date Stop Date Quantity Comments Source History of Tobacco [facility] Use [facility] Sex Assigned At [birth year] [facility] 00:00:00 00:00:00 [facility] Smoking Status Start Date Stop Date Source Never Smoker [facility] Medications Ordered Filled Start Stop Current Ordering Indication Dosage Frequency Signature Comments Components Source Medication Medication Date Date Medication? Clinician (SIG) Name Name Bupivicaine Bupivicaine 2021-0 No 5mg Common Beason Beason 8-22 Spirit 00:00: - [facility] Pepealog Pepealog 2021-0 No 40mg Common (Triamcinol (Triamcinol 8-22 S pirit one) one) 00:00: [facility] Bupivicaine Bupivicaine 2021-0 No 5mg Common Beason Beason 8-22 Spirit 00:00: - [facility] Kenalog Kenalog 2021-0 No 40mg Common (Triamcinol (Triamcinol 8-22 S pirit one) one) 00:00: [facility] Bupivicaine Bupivicaine 2021-0 No 5mg Common Beason Beason 8-22 Spirit 00:00: - [facility] Gudelia Cantualog 0 No 40mg Common (Triamcinol (Triamcinol 8-22 S pirit one) one) 00:00: - [facility] acetaminoph acetaminoph No 2capsul Q6H acetaminop [facility] en 500 mg en 500 mg e(s) hen 500 mg Family capsule capsule capsule Practi c Take 2 Take 2 Take 2 e capsules capsules capsules every 6 every 6 every 6 hours by hours by hours by oral route oral route oral route as needed. as needed. as needed. Adult Adult No 1 Q1D Adult [facility] Aspirin Aspirin Aspirin Family Regimen 81 [...] morning. amlodipine amlodipine No 1 Q1D amlodipine [facility] 5 mg tablet 5 mg tablet 5 mg F amily Take 1 Take 1 tablet Practic tablet tablet Take 1 e every day every day tablet by oral by oral every day route in route in by oral the the route in morning. morning. the morning. atorvastati atorvastati No atorvastat [facility] n 20 mg n 20 mg [...] No 1needle Q1D Comfort EZ [facility] Pen Chase Pen Chase (s) Pen F amily 32 gauge x 32 gauge x Chase 32 Practic 06/25" Take 06/25" Take gauge x e 1 needle 1 needle 06/25" Take every day every day 1 needle by miscell. by miscell. every day route as route as by directed. directed. miscell. route as directed. diphenhydra diphenhydra No 1capsul Q8H diphenhydr [facility] mine 25 mg mine 25 mg e(s) amine 25 Family capsule capsule mg capsule Pra ctic Take 1 Take 1 Take 1 e capsule capsule capsule every 8 every 8 every 8 hours by hours by hours by oral route oral route oral route as as as directed. directed. directed. fluoxetine fluoxetine No 1capsul Q1D fluoxetine [facility] 40 mg 40 mg e(s) 40 mg Family capsule capsule capsule Practi c Take 1 Take 1 Take 1 e capsule capsule capsule every day every day every day by oral by oral by oral route at route at route at bedtime. bedtime. bedtime. ipratropium ipratropium No 2.5mL Q6H ipratropiu [facility] bromide bromide m bromide Fami ly [...] days. omeprazole omeprazole No 1 Q1D omeprazole [facility] 20 mg 20 mg 20 mg [...] MG 100 MG Docusate Docusate No Docusate Sodium-Burgaw Sodium-Burgaw Sodium-Herman nthranol nthranol anthranol Aspirin 81 Aspirin [...] SoloStar SoloStar SoloStar Docusate Docusate No Docusate Sodium-Burgaw Sodium-Burgaw Sodium-Herman nthranol nthranol anthranol Lyrica Lyrica No [...] MG 100 MG Docusate Docusate No Docusate Sodium-Burgaw Sodium-Burgaw Sodium-Herman nthranol nthranol anthranol Aspirin 81 Aspirin [...] Name influenza, high-dose, influenza, high-dose, 2020-12-19 Completed [facility] quadrivalent quadrivalent 12:00:38 Practice Non-US Vaccine Non-US Vaccine 2020-09-06 Completed [facility] COVID-19 PS COVID-19 PS 00:00:00 Practice (EpiVacCorona) (EpiVacCorona) COVID-19, mRNA, COVID-19, mRNA, 2020-08-10 Completed [facility] Family LNP-S, PF, 100 LNP-S, PF, 100 00:00:00 Practi ce mcg/0.5 mL dose mcg/0.5 mL dose (Moderna) (Moderna) pneumococcal pneumococcal 2018-02-10 Completed [facility] mary polysaccharide PPV23 polysaccharide PPV23 00:00:00 Practice influenza, influenza, 2018-02-10 Completed [facility] injectable, injectable, 00:00:00 Practice quadrivalent quadrivalent Vital Signs Vital Name Observation Time Observation Value Comments Source height 2021-11-12 13:15:00 62 [in_i] [facility] weight 2021-11-12 13:15:00 205.4 [lb_av] [facility] temperature 2021-11-12 13:15:00 97.3 [degF] [facility] bmi 2021-11-12 13:15:00 37.56 kg/m2 [facility] blood pressure 2021-11-12 13:15:00 146 mm[Hg] [facility] - systolic [facility] blood pressure 2021-11-12 13:15:00 86 mm[Hg] [facility] - diastolic [facility] height 2021-10-01 13:30:00 62 [in_i] [facility] weight 2021-10-01 13:30:00 198.5 [lb_av] [facility] - [facility] temperature 2021-10-01 13:30:00 97.3 [degF] [facility] bmi 2021-10-01 13:30:00 36.3 kg/m2 [facility] blood pressure 2021-10-01 13:30:00 128 mm[Hg] [facility] - systolic [facility] blood pressure 2021-10-01 13:30:00 74 mm[Hg] [facility] - diastolic [facility] BP Diastolic 2021-03-21 00:00:00 76 mm[Hg] [facility] Height 2021-03-21 00:00:00 62 [in_i] [facility] BMI (Body Mass Index) 2021-03-21 00:00:00 35.7 kg/m2 [facility] BP Systolic 2021-03-21 00:00:00 140 mm[Hg] [facility] Body Weight 2021-03-21 00:00:00 195 [lb_av] [facility] BP Diastolic 2020-12-19 00:00:00 [...] (Body Mass Index) 2020-09-22 00:00:00 36.2 kg/m2 [facility] Practice BP Systolic 2020-09-22 00:00:00 124 mm[Hg] [facility] Body Weight 2020-09-22 00:00:00 198 [lb_av] [facility] BP Diastolic 2020-09-11 00:00:00 79 mm[Hg] [facility] Height 2020-09-11 00:00:00 62 [in_i] [facility] BMI (Body Mass Index) 2020-09-11 00:00:00 35.8 kg/m2 [facility] BP Systolic 2020-09-11 00:00:00 141 mm[Hg] [facility] Body Weight 2020-09-11 00:00:00 196 [lb_av] [facility] BP Diastolic 2020-06-19 00:00:00 80 mm[Hg] [facility] Height 2020-06-19 00:00:00 62 [in_i] [facility] BMI (Body Mass Index) 2020-06-19 00:00:00 35.8 kg/m2 [facility] BP Systolic 2020-06-19 00:00:00 134 mm[Hg] [facility] Body Weight 2020-06-19 00:00:00 196 [lb_av] [facility] BP Diastolic 2019-11-09 00:00:00 64 mm[Hg] [facility] Height 2019-11-09 00:00:00 62 [in_i] [facility] BMI (Body Mass Index) 2019-11-09 00:00:00 35.6 kg/m2 [facility] BP Systolic 2019-11-09 00:00:00 154 mm[Hg] [facility] Body Weight 2019-11-09 00:00:00 194.6 [lb_av] [facility] Practice Procedures Procedure Date / Time Performing Clinician Source Performed Removal of Gallbladder 2019-07-12 00:00:00 [facility] Laparoscopic 2019-04-30 00:00:00 [facility] michael Cholecystectomy Practice Colonoscopy [facility] Procedure on Kidney [facility] Fany rodriguez Practice Procedure on Bladder [facility] vidhi Practice Operation on Cervix [facility] Fany rodriguez Practice Breast Surgery [facility] Plan of Care Planned Activity Planned [...] [facility] [id number] Common 13:17:00 Jesus [facility] 2021-09-18 [facility] [id number] Common 14:32:00 Mouin [facility] 2021-11-12 2021-11-12 [facility] [id number] Co mmon 00:00:00 00:00:00 VISIT Spirit ESTAB PT - [facility] LEVEL 4 [facility] 2021-10-01 2021-10-01 OFFICE [facility] [id number] Co mmon 00:00:00 00:00:00 VISIT NEW Spir it PT LEVEL 4 - [facility] 2021-03-23 2021-03-23 Outpatient Daniel_T VFP VFP [id number] [facility] 10:25:00 10:25:00 [id number] Family Practic e 2021-03-21 2021-03-21 Yuri Rodriguez_T VFP [place] - [id number] [facility] 00:00:00 00:00:00 [facility] [id number] Ramsey Chaudhry - Marcus vera MD: [id number] VM_KELVIN_Nestor e [place] [facility], [address], [place] [address] , Ph. 2021-03-14 2021-03-14 Outpatient Daniel_T VFP VFP [id number] [facility] 03:48:00 03:48:00 [id number] Family Practic e 2020-12-22 2020-12-22 Outpatient Daniel_T VFP VFP [id number] [facility] 01:15:00 01:15:00 [id number] Family Practic e 2020-12-212020-12-21 Outpatient Daniel_T VFP VFP [id number] 10-30 [facility] 10:26:00 10:26:00 [id number] Family Practic e 2020-12-19 2020-12-19 Yuri Daniel_T VFP [place] - [id number] [facility] 00:00:00 00:00:00 [facility] [id number] Family RodriguezRamsey MD: [id number] Angie curry Shadow [place] [facility], [address], [place] [address] , Ph. 2020-12-12 2020-12-12 Outpatient Daniel_T VFP VFP [id number] 10-30 [facility] 11:08:00 11:08:00 [id number] Family Practic e 2020-09-26 2020-09-26 Outpatient Daniel_T VFP VFP [id number] [facility] 05:04:00 05:04:00 [id number] Family Practic e 2020-09-22 2020-09-22 Yuri Daniel_T VFP [place] - [id number] [facility] 00:00:00 00:00:00 [facility] [id number] Family RodriguezRamsey MD: [id number] Angie curry [facility], [facility] [address], [place] [address] , Ph. 2020-09-14 2020-09-14 Outpatient Daniel_T VFP VFP [id number] 10-30 [facility] 03:01:00 03:01:00 [id number] Family Practic e 2020-09-11 2020-09-11 Yuri Daniel_T VFP [place] - [id number] [facility] 00:00:00 00:00:00 [facility] [id number] Ramsey Rodriguez MD: [id number] Angie curry Shadow [facility], [facility] [address], [place] [address] , Ph. 2020-07-28 2020-07-28 Outpatient Daniel_T VFP VFP [id number] 10-30 [facility] 01:29:00 01:29:00 [id number] Family Practic e 2020-06-21 2020-06-21 Outpatient Daniel_T VFP VFP [id number] [facility] 06:47:00 06:47:00 [id number] Family Practic e 2020-06-19 2020-06-19 Yuri Daniel_T VFP [place] - [id number] 0 Village 00:00:00 00:00:00 [facility] [id number] Ramsey Rodriguez MD: [id number] DUANE_Susu e Shadow [facility], [facility] [address], [place] [address] , Ph. 2020-03-20 2020-03-20 Outpatient Daniel_T VFP VFP [id number] 10-30 [facility] 09:49:00 09:49:00 Family Practic e 2019-11-12 2019-11-12 Outpatient Daniel_T VFP VFP [id number] 10-30 [facility] 06:54:00 06:54:00 Family Practic e 2019-11-09 2019-11-09 Yuri Daniel_T VFP [place] - [id number] [facility] 00:00:00 00:00:00 [facility] [id number] Ramsey Rodriguez MD: [id number] DUANE_Jimena e Shadow [facility], [address], [place] [address] , Ph. 2019-10-27 2019-10-27 Outpatient Daniel_T VFP VFP [id number] 10-30 [facility] 10:48:00 10:48:00 [id number] Family Practic e Results Test Description Test Time Test Comments Results Result Comments Source Hemoglobin A1c measurement device panel 2021-03-21 10:07:47 Test Item Value Reference Range Interpretation Comme nts Hemoglobin A1C Fingerstick: (test code = Hemoglobin A1C Fingerstick :) 6.9 [facility] PracticeGlucose [Mass/volume] in Capillary [id number] 10:04:25 Test Item Value Reference Range Interpretation Comments Blood Glucose: mg/dl (test code = Blood 112 Glucose: mg/dl) [facility] PracticeHemoglobin A1c measurement device [id number] 11:02:48 Test Item Value Reference Range Interpretation Comments Hemoglobin A1C Fingerstick: (test code 7.2 = Hemoglobin A1C Fingerstick:) [facility] [Mass/volume] in Capillary [id number] 10:55:53 Test Item Value Reference Range Interpretation Comments Blood Glucose: mg/dl (test code = Blood 247 Glucose: mg/dl) [facility])2019-08-04 20:55:00 Test Item Value Reference Range Interpretation Comments SARS-COV2/RT-PCR (test Not Detected Not Detected, Negative code = 5086073) SARS-COV-2 PERFORMING LAB [facility] (test code = 3873695) Negative results do not preclude SARS-CoV-2 infection [...] of the Act.Fact Sheet for Healthcare Pro viders:https://www.Sanako.Bouf/Documents/Xpert%20Xpress%20SARS%20CoV-2/Fact%20Sh eets/3023802%75XRXG-PAJ-6%20HEALTHCARE%20PROVIDERS%20FACT%20SHEET.pdfFact Sheet for Healthcare Patients:https://www.Motally.Bouf/Documents/Xpert%20Xpress%20SARS%20CoV-2/Fact%20Sheets/3023801%20SARS-COV -2%20PATIENT%20FACT%20SHEET.pdfPerforming Laboratory:[facility] [place] [address]
[2021-12-22] MEDS ORDERED: NA CHLORIDE 0.9% 1,000 ML ONE (05:37)
[2021-12-22] MEDS ORDERED: ONDANSETRON 4 MG/2 ML VIAL ONE ×2 (05:37→07:41)
[2021-12-22] MEDS ORDERED: FENTANYL CITR 100 MCG/2 ML ONE (05:37)
[2021-12-22 06:13] LABS: Absolute Lymphocytes (CBC) 2.2 K/uL (0.7-4.9); Hematocrit 40.4 % (36.0-45.0); Lymphocytes % 24.7 % (15.3-44.8); MCV 88.6 fL (80-100); MPV 8.2 fL (7.6-11.3); RBC Red Blood Cell Count 4.56 M/uL (3.86-4.86)
[2021-12-22] MEDS ORDERED: GABAPENTIN 300 MG CAP ONE (06:31)
[2021-12-22 06:33] LABS: Albumin 3.7 g/dL (3.4-5.0); Bilirubin Direct 0.1 mg/dL (0-0.2); Bilirubin Total 0.4 mg/dL (0.2-1.0); Magnesium 1.6 mg/dL (1.8-2.4); Potassium 4.1 mmol/L (3.5-5.1); Protein, Total 8.2 g/dL (6.4-8.2)
[2021-12-22 06:45] LABS: SARS-CoV-2 Antigen Rapid Res Negative (Negative)
--- NOTE | 2021-12-22 07:15 | ER ---
Nurse's Notes [facility] Name: Kiley Ortega Age: 76 yrs Sex: Female : 1945 Arrival Date: 12/22/2021 Time: 05:22 Bed 5 Private MD: Diagnosis: Abdominal pain, unspecified;Hypomagnesemia;UTI/ Urinary tract infection, site not specified Presentation: 12/22 05:23 Chief complaint: Patient states: "If I stop taking my Lyrica it makes me really ill. I tw5 have been out for a week. I was up here earlier and Dr. Franco got me so I could eat again, but he still never called in the prescription and I am still sick.". Coronavirus screen: Vaccine status:. Ebola Screen: Patient negative for fever greater than or equal to 101.5 degrees Fahrenheit, and additional compatible Ebola Virus Disease symptoms Patient denies exposure to infectious person. Patient denies travel to an Ebola-affected area in the 21 days before illness onset. 05:23 Method Of Arrival: EMS: [facility] tw5 06:28 Initial Sepsis Screen: Does the patient meet any 2 criteria? No. Patient's initial aa9 sepsis screen is negative. Does the patient have a suspected source of infection? No. Patient's initial sepsis screen is negative. Risk Assessment: Do you want to hurt yourself or someone else? Patient reports no desire to harm self or others. Onset of symptoms was December 22, 2021. 06:28 Acuity: SHELLEY 3 aa9 Historical: - Allergies: 06:25 Iodinated Contrast Media - IV Dye; aa9 06:25 Tegretol; aa9 - PMHx: 06:25 breast cancer-right side; cervical cancer; COPD; Diabetes - NIDDM; Hypertension; aa9 Myopathy; neuropathy; TIA; Kidney stone; - PSHx: 06:25 Total abdominal hysterectomy; aa9 - Social history:: Smoking status: Patient denies any tobacco usage or history of. - Family history:: not pertinent. Screenin:28 Abuse screen: Denies threats or abuse. Denies injuries from another. Nutritional aa9 screening: No deficits noted. Tuberculosis screening: No symptoms or risk factors identified. Fall Risk None identified. Assessment: 06:27 General: Appears uncomfortable, obese, Behavior is calm, cooperative, appropriate for aa9 age. Pain: Complains of pain in abdomen. Neuro: Level of Consciousness is awake, alert, obeys commands, Oriented to person, place, time, situation. Cardiovascular: Patient's skin is warm and dry. Respiratory: Airway is patent Respiratory effort is even, unlabored. GI: Reports nausea, vomiting. : No signs and/or symptoms were reported regarding the genitourinary system. Derm: Skin is intact, with poor turgor. 07:00 Reassessment: RECD REPORT FROM SHRAVAN [place]. 76YO WF P/W NAUSEA AFTER RUNNING OUT OF HOME bp [facility]. SEEN FOR SAME MX TIMES. 07:30 Reassessment: DC ON HOLD FOR ADD'L MEDS. bp 11:31 Reassessment: Unable to contact pt's son for ride home, "phone disconnected" message. aa5 Contacted [place] [employer] to send officer to pt's house to look for her son, pt aware and agrees with plan. . 12:47 Reassessment: PT D/C VIA WC WITH SON. bp Vital Signs: 05:24 BP 164 / 65; Pulse 89; Resp 17 S; Pulse Ox 98% on R/A; aa9 06:43 BP 153 / 69; Pulse 90; Resp 18 S; Pulse Ox 94% on R/A; aa9 06:56 Weight 95.25 kg (R); Height 5 ft. 2 in. (157.48 cm) (R); aa9 06:58 BP 151 / 68; Pulse 97; Resp 18 S; Pulse Ox 97% on R/A; aa9 07:30 BP 161 / 68; Pulse 83; Resp 14; Temp 97.9; Pulse Ox 95% ; bp 09:00 BP 136 / 5; Pulse 82; Resp 16; Pulse Ox 94% on NC; bp 10:16 BP 138 / 58; Pulse 68; Resp 17; Pulse Ox 94% ; bp 11:00 BP 144 / 65; Pulse 73; Resp 14; Pulse Ox 98% ; bp 12:00 BP 129 / 46; Pulse 73; Resp 15; Pulse Ox 93% ; bp 12:30 BP 134 / 43; Pulse 70; Resp 14; Pulse Ox 97% ; bp 06:56 Body Mass Index 38.41 (95.25 kg, 157.48 cm) aa9 ED Course: 05:22 Patient arrived in ED. la1 05:23 Eze Aguilera MD is Attending Physician. ivan 05:30 Ladonna Carreno, RN is Primary Nurse. aa9 05:50 Initial lab(s) drawn, by me, sent to lab. Inserted saline lock: 20 gauge in left bb antecubital area, using aseptic technique. Blood collected. 06:14 Basic Metabolic Panel Sent. aa9 06:14 Troponin HS Sent. aa9 06:27 XRAY Chest (1 view) In Process Unspecified. EDMS 06:27 Abdomen with Erect XRAY In Process Unspecified. EDMS 06:28 Triage completed. aa9 06:28 Arm band placed on. aa9 06:28 Patient has correct armband on for positive identification. Placed in gown. Bed in low aa9 position. Call light in reach. Side rails up X2. Client placed on continuous cardiac and pulse oximetry monitoring. NIBP monitoring applied. Warm blanket given. 06:30 SARS RAPID Sent. aa9 07:13 Jesus Franco MD is Referral Physician. ivan 08:23 Primary Nurse role handed off by Ladonna Carreno, RN eb 08:37 Will Figueredo, YUNIOR is Primary Nurse. bp 12:48 No provider procedures requiring assistance completed. IV discontinued, intact, bp bleeding controlled, No redness/swelling at site. Pressure dressing applied. Administered Medications: 06:14 Drug: NS 0.9% 1000 ml Route: IV; Rate: 1 bolus; Site: left antecubital; aa9 07:48 Follow up: IV Status: Completed infusion; IV Intake: 1000ml bp 06:14 Drug: fentaNYL (PF) 25 mcg Route: IVP; Site: left antecubital; aa9 06:33 Follow up: Response: No adverse reaction aa9 06:14 Drug: Zofran (Ondansetron) 4 mg Route: IVP; Site: left antecubital; aa9 06:33 Follow up: Response: No adverse reaction aa9 06:33 Drug: Gabapentin 300 mg Route: PO; aa9 06:33 Follow up: Response: No adverse reaction aa9 07:15 Drug: Magnesium Sulfate 2 grams Route: IVPB; Infused Over: 1 hrs; Site: left bp antecubital; 08:15 Follow up: Response: No adverse reaction; IV Status: Completed infusion; IV Intake: ll1 100ml 07:27 CANCELLED (Duplicate Order): Lyrica (pregabalin) 100 mg PO once ivan 07:44 Drug: Lyrica (pregabalin) 300 mg Route: PO; bp 10:35 Follow up: Response: No adverse reaction ll1 07:44 Drug: Zofran (Ondansetron) 4 mg Route: IVP; Site: left antecubital; bp 10:35 Follow up: Response: No adverse reaction ll1 08:15 Drug: Cipro (ciprofloxacin) 500 mg Route: PO; bp 10:35 Follow up: Response: No adverse reaction ll1 08:30 Drug: Rocephin (cefTRIAXone) 1 grams Route: IV; Rate: per protocol; Site: left bp antecubital; 10:35 Follow up: IV Status: Completed infusion; IV Intake: 100ml ll1 08:58 Not Given (Duplicate Order): fentaNYL (PF) 25 mcg IVP once ll1 Medication: 06:28 VIS not applicable for this client. aa9 Intake: 07:48 IV: 1000ml; Total: 1000ml. bp 08:15 IV: 100ml; Total: 1100ml. ll1 10:35 IV: 100ml; Total: 1200ml. ll1 Output: 09:06 Urine: 300ml (Voided); Total: 300ml. ll1 Outcome: 07:14 Discharge ordered by . ivan 12:48 Discharged to home via wheelchair, with family. bp 12:48 Condition: stable 12:48 Discharge instructions given to patient, family, Instructed on discharge instructions, follow up and referral plans. medication usage. 12:49 Patient left the ED. bp Signatures: Dispatcher [employer] EDMS Eze Aguilera MD MD cha Ballard, Brenda RN RN Hortensia Delarosa RN RN aa5 Arnoldo Hardin, RECORDING STUDIO SET UP WORKER-C RECORDING STUDIO SET UP WORKER-Cla1 Will Figueredo RN RN Margaret Mae Lynsay, RN RN ll1 Sonali Willams tw5 Ladonna Carreno, RN RN aa9 Corrections: (The following items were deleted from the chart) 09:05 09:00 BP 136 / 5; Pulse 82bpm; Resp 16bpm; Pulse Ox 92% 2 lpm Nasal Cannula; bp bp 12:49 07:30 BP 161 / 68; Pulse 83bpm; Resp 14bpm; Pulse Ox 95%; bp bp
--- NOTE | 2021-12-22 07:15 | EDPHYS ---
Physician Documentation [facility] Name: Kiley Ortega Age: 76 yrs Sex: Female : 1945 Arrival Date: 12/22/2021 Time: 05:22 Bed 5 Private MD: ED Physician Eze Aguilera HPI: 12/22 05:28 This 76 yrs old Female presents to ER via EMS with complaints of nausea and ivan vomiting. 05:28 The patient presents with abdominal distention in the upper abdomen, in the lower ivan abdomen. Onset: The symptoms/episode began/occurred 2 day(s) ago. The patient presents to the emergency department with nausea, vomiting, that is continuous, that is intermittent, described as bilious. Onset: The symptoms/episode began/occurred 3 day(s) ago. Possible causes: unknown. The symptoms are aggravated by movement, pressure, food , alcohol. Associated signs and symptoms: Pertinent positives: abdominal pain, nausea. Historical: - Allergies: 06:25 Iodinated Contrast Media - IV Dye; aa9 06:25 Tegretol; aa9 - PMHx: 06:25 breast cancer-right side; cervical cancer; COPD; Diabetes - NIDDM; Hypertension; aa9 Myopathy; neuropathy; TIA; Kidney stone; - PSHx: 06:25 Total abdominal hysterectomy; aa9 - Social history:: Smoking status: Patient denies any tobacco usage or history of. - Family history:: not pertinent. ROS: 05:28 Constitutional: Negative for fever, chills, and weight loss, Eyes: Negative for injury, ivan pain, redness, and discharge, ENT: Negative for injury, pain, and discharge, Neck: Negative for injury, pain, and swelling, Cardiovascular: Negative for chest pain, palpitations, and edema, Respiratory: Negative for shortness of breath, cough, wheezing, and pleuritic chest pain, Back: Negative for injury and pain, : Negative for injury, bleeding, discharge, and swelling, MS/Extremity: Negative for injury and deformity, Skin: Negative for injury, rash, and discoloration, Neuro: Negative for headache, weakness, numbness, tingling, and seizure, Psych: Negative for depression, anxiety, suicide ideation, homicidal ideation, and hallucinations, Allergy/Immunology: Negative for hives, rash, and allergies, Endocrine: Negative for neck swelling, polydipsia, polyuria, polyphagia, and marked weight changes, Hematologic/Lymphatic: Negative for swollen nodes, abnormal bleeding, and unusual bruising. 05:28 Abdomen/GI: Positive for abdominal pain, nausea and vomiting, of the right upper quadrant, left upper quadrant, right lower quadrant and left lower quadrant. Exam: 05:28 Constitutional: This is a well developed, well nourished patient who is awake, alert, ivan and in no acute distress. Head/Face: Normocephalic, atraumatic. Eyes: Pupils equal round and reactive to light, extra-ocular motions intact. Lids and lashes normal. Conjunctiva and sclera are non-icteric and not injected. Cornea within normal limits. Periorbital areas with no swelling, redness, or edema. ENT: Nares patent. No nasal discharge, no septal abnormalities noted. Tympanic membranes are normal and external auditory canals are clear. Oropharynx with no redness, swelling, or masses, exudates, or evidence of obstruction, uvula midline. Mucous membranes moist. Neck: Trachea midline, no thyromegaly or masses palpated, and no cervical lymphadenopathy. Supple, full range of motion without nuchal rigidity, or vertebral point tenderness. No Meningismus. Chest/axilla: Normal chest wall appearance and motion. Nontender with no deformity. No lesions are appreciated. Cardiovascular: Regular rate and rhythm with a normal S1 and S2. No gallops, murmurs, or rubs. Normal PMI, no JVD. No pulse deficits. Respiratory: Lungs have equal breath sounds bilaterally, clear to auscultation and percussion. No rales, rhonchi or wheezes noted. No increased work of breathing, no retractions or nasal flaring. Back: No spinal tenderness. No costovertebral tenderness. Full range of motion. Female : Normal external genitalia. Skin: Warm, dry with normal turgor. Normal color with no rashes, no lesions, and no evidence of cellulitis. MS/ Extremity: Pulses equal, no cyanosis. Neurovascular intact. Full, normal range of motion. Neuro: Awake and alert, GCS 15, oriented to person, place, time, and situation. Cranial nerves II-XII grossly intact. Motor strength 5/5 in all extremities. Sensory grossly intact. Cerebellar exam normal. Normal gait. Psych: Awake, alert, with orientation to person, place and time. Behavior, mood, and affect are within normal limits. 05:28 Abdomen/GI: Inspection: distension, Bowel sounds: active, all quadrants, Palpation: mild abdominal tenderness, moderate abdominal tenderness, in all quadrants, Rectal exam: is unremarkable, Liver: no appreciated palpable abnormalities, Hernia: not appreciated. 06:24 ECG was reviewed by the Attending Physician. [facility] Vital Signs: 05:24 BP 164 / 65; Pulse 89; Resp 17 S; Pulse Ox 98% on R/A; aa9 06:43 BP 153 / 69; Pulse 90; Resp 18 S; Pulse Ox 94% on R/A; aa9 06:56 Weight 95.25 kg (R); Height 5 ft. 2 in. (157.48 cm) (R); aa9 06:58 BP 151 / 68; Pulse 97; Resp 18 S; Pulse Ox 97% on R/A; aa9 07:30 BP 161 / 68; Pulse 83; Resp 14; Temp 97.9; Pulse Ox 95% ; bp 09:00 BP 136 / 5; Pulse 82; Resp 16; Pulse Ox 94% on NC; bp 10:16 BP 138 / 58; Pulse 68; Resp 17; Pulse Ox 94% ; bp 11:00 BP 144 / 65; Pulse 73; Resp 14; Pulse Ox 98% ; bp 12:00 BP 129 / 46; Pulse 73; Resp 15; Pulse Ox 93% ; bp 12:30 BP 134 / 43; Pulse 70; Resp 14; Pulse Ox 97% ; bp 06:56 Body Mass Index 38.41 (95.25 kg, 157.48 cm) aa9 MDM: 05:23 Patient medically screened. [facility] 05:31 Differential diagnosis: Nonspecific abd pain, gastritis, cholecystitis, pancreatitis, ivan appendicitis, diverticulitis, viral gastroenteritis, gastroenteritis, bowel obstruction, Cholelithiasis, gastritis, Mesenteric ischemia or infarction, non-specific abd pain, pancreatitis, Peptic Ulcer Disease, Ureterolithiasis. Data reviewed: vital signs, nurses notes, lab test result(s), EKG, radiologic studies, plain films. Data interpreted: color television console monitor: rate is 85 beats/min, rhythm is regular, Pulse oximetry: on room air is 96 %. Test interpretation: by ED physician or midlevel provider: ECG, plain radiologic studies. Counseling: I had a detailed discussion with the patient and/or guardian regarding: the historical points, exam findings, and any diagnostic results supporting the discharge/admit diagnosis, lab results, radiology results. 12/22 05:27 Order name: Basic Metabolic Panel; Complete Time: 06:54 [facility] 12/22 05:27 Order name: CBC with Diff; Complete Time: 06:25 [facility] 12/22 05:27 Order name: LFT's; Complete Time: 06:54 [facility] 12/22 05:27 Order name: Magnesium; Complete Time: 06:54 [facility] 12/22 05:27 Order name: NT PRO-BNP; Complete Time: 06:54 [facility] 12/22 05:27 Order name: PT-INR; Complete Time: 06:25 [facility] 12/22 05:27 Order name: Troponin HS; Complete Time: 06:54 [facility] 12/22 05:27 Order name: XRAY Chest (1 view) [facility] 12/22 05:27 Order name: Lipase; Complete Time: 06:54 [facility] 12/22 05:27 Order name: Abdomen with Erect XRAY [facility] 12/22 05:27 Order name: SARS RAPID; Complete Time: 06:54 [facility] 12/22 07:39 Order name: Urine Dipstick-Ancillary; Complete Time: 07:41 EDMS 12/22 05:27 Order name: EKG; Complete Time: 05:29 [facility] 12/22 05:27 Order name: Cardiac monitoring; Complete Time: 06:14 [facility] 12/22 05:27 Order name: EKG - Nurse/Tech; Complete Time: 06:14 [facility] 12/22 05:27 Order name: IV Saline Lock; Complete Time: 06:14 [facility] 12/22 05:27 Order name: Labs collected and sent; Complete Time: 06:14 [facility] 12/22 05:27 Order name: O2 Per Protocol; Complete Time: 06:14 [facility] 12/22 05:27 Order name: O2 Sat Monitoring; Complete Time: 06:14 [facility] 12/22 05:27 Order name: Urine Dipstick-Ancillary (obtain specimen); Complete Time: 06:20 [facility] 12/22 07:12 Order name: Misc. Order: please get ua; Complete Time: 07:36 [facility] EC:24 Rate is 85 beats/min. Rhythm is regular. QRS [place] is Normal. UT interval is normal. QRS ivan interval is normal. QT interval is normal. No Q waves. T waves are Normal. No ST changes noted. Clinical impression: Normal ECG and No evidence of ischemia. Interpreted by me. Reviewed by me. Administered Medications: 06:14 Drug: NS 0.9% 1000 ml Route: IV; Rate: 1 bolus; Site: left antecubital; aa9 07:48 Follow up: IV Status: Completed infusion; IV Intake: 1000ml bp 06:14 Drug: fentaNYL (PF) 25 mcg Route: IVP; Site: left antecubital; aa9 06:33 Follow up: Response: No adverse reaction aa9 06:14 Drug: Zofran (Ondansetron) 4 mg Route: IVP; Site: left antecubital; aa9 06:33 Follow up: Response: No adverse reaction aa9 06:33 Drug: Gabapentin 300 mg Route: PO; aa9 06:33 Follow up: Response: No adverse reaction aa9 07:15 Drug: Magnesium Sulfate 2 grams Route: IVPB; Infused Over: 1 hrs; Site: left bp antecubital; 08:15 Follow up: Response: No adverse reaction; IV Status: Completed infusion; IV Intake: ll1 100ml 07:27 CANCELLED (Duplicate Order): Lyrica (pregabalin) 100 mg PO once ivan 07:44 Drug: Lyrica (pregabalin) 300 mg Route: PO; bp 10:35 Follow up: Response: No adverse reaction ll1 07:44 Drug: Zofran (Ondansetron) 4 mg Route: IVP; Site: left antecubital; bp 10:35 Follow up: Response: No adverse reaction ll1 08:15 Drug: Cipro (ciprofloxacin) 500 mg Route: PO; bp 10:35 Follow up: Response: No adverse reaction ll1 08:30 Drug: Rocephin (cefTRIAXone) 1 grams Route: IV; Rate: per protocol; Site: left bp antecubital; 10:35 Follow up: IV Status: Completed infusion; IV Intake: 100ml ll1 08:58 Not Given (Duplicate Order): fentaNYL (PF) 25 mcg IVP once ll1 Disposition Summary: 12/22/21 07:14 Discharge Ordered Location: Home ivan Problem: new ivan Symptoms: have improved ivan Condition: Stable ivan Diagnosis - Abdominal pain, unspecified ivan - Hypomagnesemia ivan - UTI/ Urinary tract infection, site not specified ivan Followup: ivan - With: Private Physician - When: 2 - 3 days - Reason: Recheck today's complaints, Continuance of care, Re-evaluation by your physician Followup: ivan - With: Jesus Franco MD - When: 2 - 3 days - Reason: Recheck today's complaints, Continuance of care, Re-evaluation by your physician Discharge Instructions: - Discharge Summary Sheet ivan - Abdominal Pain, Adult ivan - Hypomagnesemia ivan - Abdominal Pain, Adult, [id number] ivan - Urinary Tract Infection, Adult ivan - Urinary Tract Infection, Adult, [id number] [facility] Forms: - Medication Reconciliation Form [facility] - Thank You Letter ivan - Antibiotic Education [facility] - Prescription Opioid Use [facility] Prescriptions: - Zofran 4 mg Oral Tablet - take 1 tablet by ORAL route every 12 hours As needed; 20 tablet; Refills: 0, [facility] Product Selection Permitted - dicyclomine 20 mg Oral Tablet - take 1 tablet by ORAL route 4 times per day; 28 tablet; Refills: 0, Product [facility] Selection Permitted - Lyrica 300 mg Oral capsule - take 1 capsule by ORAL route 2 times per day; 40 capsule; Refills: 0, Product [facility] Selection Permitted - Cipro 250 mg Oral Tablet - take 1 tablet by ORAL route every 12 hours; 14 tablet; Refills: 0, Product [facility] Selection Permitted Signatures: Dispatcher [employer] EDEze Flaherty MD MD cha Peltier, Brian, RN RN Ladonna Win RN RN aa9 Yariel Davis RN ll1 Corrections: (The following items were deleted from the chart) 07:27 07:20 Lyrica (pregabalin) 100 mg PO once ordered. ivan love
[2021-12-22] MEDS ORDERED: Magnesium Sulfate 2gm IVPB 2 G/50 ML BAG IV ONE (07:21)
[2021-12-22 07:38] LABS: Urine Blood Trace-intact (Negative); Urine Glucose Negative (Negative); Urine Protein Negative (Negative); Urine pH 5.5 (5.0-7.0)
[2021-12-22] MEDS ORDERED: PREGABALIN 50 MG CAP ONE (07:39)
[2021-12-22] MEDS ORDERED: CEFTRIAXONE 1000 MG/VIAL ONE (08:33)
[2021-12-22] MEDS ORDERED: NA CHLORIDE 0.9% 100 ML IV ONE (08:33)
[2021-12-22] MEDS ORDERED: CIPROFLOXACIN HCL 500 MG TAB ONE (08:33)
[2021-12-22 13:05] VITALS: TEMP 97.7
[2021-12-22 13:06] VITALS: BP 115/64; O2SAT 100
--- NOTE | 2021-12-24 09:25 | RAD REPORT ---
EXAM DESCRIPTION: RAD - Abdomen W Erect - 12/22/2021 6:25 am CLINICAL HISTORY: ABD PAIN COMPARISON: Abdomen Pelvis Wo Contrast dated 12/17/2021 FINDINGS: Nonobstructive bowel gas pattern. No acute osseous abnormality.Visualized lungs are unrema rkable.No abnormal calcifications. Surgical clips in the right upper quadrant. IMPRESSION: Nonobstructive bowel gas pattern.
--- NOTE | 2021-12-24 09:27 | RAD REPORT ---
EXAM DESCRIPTION: RAD - Chest Single View - 12/22/2021 6:25 am CLINICAL HISTORY: ABDOMINAL DISTENTION COMPARISON: Chest Single View dated 04/03/2020; Chest Single View dated 08/05/2019; Chest Single View dated 08/04/2019; Chest Single View dated 05/24/2019; Abdomen Pelvis Wo Contrast dated 12/17/2021 FINDINGS: Lines: None. Lungs: No evidence of edema or pneumonia. Pleural: No significant pleural effusions or pneumothorax. Cardiac: Similar size and configuration. Mediastinum: Within normal limits. Bones: No acute fractures. Other: None IMPRESSION: No acute cardiopulmonary disease.
--- NOTE | 2021-12-24 15:12 | EKG ---
Test Date: 2021-12-22 Test Time: 05:59:20 Railroad Car Loader: BRUCE MEASUREMENT RESULTS: Intervals: Rate: 85 ME: 160 QRSD: 68 QT: 386 QTc: 459 [place]: P: 84 ME: 160 QRS: 26 T: 64 INTERPRETIVE STATEMENTS: Normal sinus rhythm Nonspecific ST and T wave abnormality Abnormal ECG Compared to ECG 12/17/2021 09:31:43 ST (T wave) deviation now present Electronically Signed On 12-24-21 15:09:37 CARROT BUNCHER by Eliazar Bergeron
== END 2021-12-22 12:49 | disposition home or self-care (01) ==
LOC: ER 05:21
DX: N39.0 Urinary tract infection, site not specified (principal); E83.42 Hypomagnesemia; I10 Essential (primary) hypertension; Z20.822 Contact with and (suspected) exposure to COVID-19; Z88.8 Allergy status to other drugs, medicaments and biological substances; Z91.041 Radiographic dye allergy status
CPT/HCPCS: 96365; 96367; 96361; 93005; 85025; 80048; 36415; 83735; 85610; 80076; 81003; 84484; 83690; 83880; 74019; 71045; 96375; 99284; 96366; 87811; J3010; J3475; J7030; J2405 ×2

== ENCOUNTER 2022-01-12 12:07 | Inpatient (IN) | payer OTHER ==
--- OUTSIDE RECORDS SUMMARY | 2022-01-12 12:11 | XMS REPORT | Continuity of Care Document ---
:1945 Author Organization [facility] t Address [address] [place] [address] [address]. [address] [place] [address] Care Team Providers Name Role Phone Jesus Franco Attending Clinician Unavailable Shivani Anguiano Attending Clinician Unavailable Michael_Filiberto Attending Clinician Unavailable Michael Admitting Clinician Unavailable Payers Payer Name Policy Type Policy Number Effective Date Expiration Date S [place] [id number] Common [facility] Spirit - [facility] [id number] HEALTHCARE Problems Condition Condition Condition Status Onset Resolution Last Treating Co mments Source Name Details Category Date Date Treatment Clinician Date 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 Polycythem -13 [facility] 00:00: Practic 00 e Administra Administra Problem Active 2020-02 [facility] tion of tion of 1-09 Family influenza Influenza 00:00: Prac tic vaccine Vaccine 00 e 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 5-10 Family mellitus Mellitus 00:00: Practi c 00 e History of History of Problem Active [facility] SARS-CoV-2 SARS-CoV-2 5-10 [facility] 00:00: Practic 00 e Neuropathy Neuropathy Problem [...] 00 e Senile Senile Problem Active 2017-02 [facility] osteoporos Osteoporos 2-13 Fa mary is is [...] 00 e Chronic Chronic Problem Active 2016-02 [facility]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 00:00: Pr actic disorder, Disorder, 00 e single Single episode Episode Chronic Chronic Problem Active 2016-02 [facility] pain Pain 2-14 Family 00:00: Practic 00 e Essential Essential Problem Active 2016-02 Rika francisco javier hypertensi Hypertensi 2-14 Trey hernandez on on 00:00: Practic 00 e Chronic Chronic Problem Active 2016-02 [facility] obstructiv Obstructiv 2-14 Trey hernandez e lung e Lung 00:00: Practic disease Disease 00 e [id number] Boil Problem [facility] [id number] Dysuria Problem [facility] [id number] Menopausal Problem Com mon vaginal [facility] Allergies, Adverse Reactions, Alerts Allergy Allergy Status Severity Reaction(s) Onset Inactive Treating Comm ents Source Name Type Date Date Clinician carbamaz carbamaz Active hives Common epine epine [facility] Iodine Allergy Active [facility] sub[facility]anc Practic e e Tegretol Allergy Active [facility] substan Practic e e 463 Drug Active nausea,diff Commo n allergy breathing [facility] Social History Social Habit Start Date Stop Date Quantity Comments Source History of Tobacco [facility] Use [facility] Sex Assigned At [birth year] [facility] 00:00:00 [facility]:00 [facility] Smoking Status Start Date Stop Date Source Never Smoker [facility] Medications Ordered Filled Start Stop Current Ordering Indication Dosage Frequency Signature Comments Components Source Medication Medication Date Date Medication? Clinician (SIG) Name Name Bupivicaine Bupivicaine 2021-0 No 5mg Common Ancram Ancram 8-22 Spirit 00:00: - [facility] Pepealog Pepealog 2021-0 No 40mg Common (Triamcinol (Triamcinol 8-22 S pirit one) one) 00:00: [facility] Bupivicaine Bupivicaine 2021-0 No 5mg Common Ancram Ancram 8-22 Spirit 00:00: - [facility] Kenalog Kenalog 2021-0 No 40mg Common (Triamcinol (Triamcinol 8-22 S pirit one) one) 00:00: [facility] Bupivicaine Bupivicaine 2021-0 No 5mg Common Ancram Ancram 8-22 Spirit 00:00: - [facility] Gudelia Cantualog 0 No 40mg Common (Triamcinol (Triamcinol 8-22 S pirit one) one) 00:00: - [facility] acetaminoph acetaminoph No 2capsul Q6H acetaminop [facility] en 500 mg en 500 mg e(s) hen 500 mg Family capsule capsule capsule Practi c Take 2 Take 2 Take 2 e capsules capsules capsules every 6 every 6 every 6 hours by hours by hours by oral route oral route oral route as needed. as needed. as needed. Adult Adult No 1 Q1D Adult [facility] Aspirin Aspirin Aspirin Family Regimen 81 Regimen 81 Regimen 81 Practic mg mg mg e tablet,helen tablet,helen tablet,del yed release yed release ayed Take 1 Take 1 release tablet tablet Take 1 every day every day tablet by oral by oral every day route in route in by oral the the route in morning. morning. the morning. amlodipine amlodipine No 1 Q1D amlodipine [facility] 5 mg tablet 5 mg tablet 5 mg F amily Take 1 Take 1 tablet Practic tablet tablet Take 1 e every day every day tablet by oral by oral every day route in route in by oral the the route in morning. morning. the morning. atorvastati atorvastati No atorvastat [facility] n 20 mg n 20 mg in [...] No 1needle Q1D Comfort EZ [facility] Pen Conner Pen Conner (s) Pen F amily 32 gauge x 32 gauge x Conner 32 Practic 06/25" Take 06/25" Take gauge x e 1 needle 1 needle 06/25" Take every day every day 1 needle by miscell. by miscell. every day route as route as by directed. directed. miscell. route as directed. diphenhydra diphenhydra No 1capsul Q8H diphenhydr [facility] mine 25 mg mine 25 mg e(s) amine 25 Family capsule capsule mg capsule Pra ctic Take 1 Take 1 Take 1 e capsule capsule capsule every 8 every 8 every 8 hours by hours by hours by oral route oral route oral route as as as directed. directed. directed. fluoxetine fluoxetine No 1capsul Q1D fluoxetine [facility] 40 mg 40 mg e(s) 40 mg Family capsule capsule capsule Practi c Take 1 Take 1 Take 1 e capsule capsule capsule every day every day every day by oral by oral by oral route at route at route at bedtime. bedtime. bedtime. ipratropium ipratropium No 2.5mL Q6H ipratropiu [facility] bromide bromide m bromide Fami ly 0.02 [...] days. omeprazole omeprazole No 1 Q1D omeprazole [facility] 20 mg 20 mg 20 mg Family [...] MG 100 MG Docusate Docusate No Docusate Sodium-Martin Sodium-Martin Sodium-Herman nthranol nthranol anthranol Aspirin 81 Aspirin [...] SoloStar SoloStar SoloStar Docusate Docusate No Docusate Sodium-Martin Sodium-Martin Sodium-Herman nthranol nthranol anthranol Lyrica Lyrica No [...] MG 100 MG Docusate Docusate No Docusate Sodium-Martin Sodium-Martin Sodium-Herman nthranol nthranol anthranol Aspirin 81 Aspirin [...] Name influenza, high-dose, influenza, high-dose, 2020-12-19 Completed [facility] quadrivalent quadrivalent 12:00:38 Practice Non-US Vaccine Non-US Vaccine 2020-09-06 Completed [facility] Family COVID-19 PS COVID-19 PS 00:00:00 Practice (EpiVacCorona) (EpiVacCorona) COVID-19, mRNA, COVID-19, mRNA, 2020-08-10 Completed [facility] Family LNP-S, PF, 100 LNP-S, PF, 100 00:00:00 Practi ce mcg/0.5 mL dose mcg/0.5 mL dose (Moderna) (Moderna) pneumococcal pneumococcal 2018-02-10 Completed [facility] mary polysaccharide PPV23 polysaccharide PPV23 00:00:00 Practice influenza, influenza, 2018-02-10 Completed [facility] injectable, injectable, 00:00:00 Practice quadrivalent quadrivalent Vital Signs Vital Name Observation Time Observation Value Comments Source height 2021-11-12 13:15:00 62 [in_i] [facility] weight 2021-11-12 13:15:00 205.4 [lb_av] [facility] temperature 2021-11-12 13:15:00 97.3 [degF] [facility] bmi 2021-11-12 13:15:00 37.56 kg/m2 [facility] blood pressure 2021-11-12 13:15:00 146 mm[Hg] [facility] - systolic [facility] blood pressure 2021-11-12 13:15:00 86 mm[Hg] [facility] - diastolic [facility] height 2021-10-01 13:30:00 62 [in_i] Common [facility] weight 2021-10-01 13:30:00 198.5 [lb_av] [facility] - [facility] temperature 2021-10-01 13:30:00 97.3 [degF] Common [facility] bmi 2021-10-01 13:30:00 36.3 kg/m2 Common [facility] blood pressure 2021-10-01 13:30:00 128 mm[Hg] [facility] - systolic [facility] blood pressure 2021-10-01 13:30:00 74 mm[Hg] [facility] - diastolic [facility] BP Diastolic 2021-03-21 00:00:00 76 mm[Hg] [facility] Height 2021-03-21 00:00:00 62 [in_i] [facility] BMI (Body Mass Index) 2021-03-21 00:00:00 35.7 kg/m2 [facility] Family Practice BP Systolic 2021-03-21 00:00:00 140 mm[Hg] [facility] Family Practice Body Weight 2021-03-21 00:00:00 195 [lb_av] [facility] Family Practice BP Diastolic 2020-12-19 00:00:00 77 [...] (Body Mass Index) 2020-09-22 00:00:00 36.2 kg/m2 [facility] Practice BP Systolic 2020-09-22 00:00:00 124 mm[Hg] [facility] Practice Body Weight 2020-09-22 00:00:00 198 [lb_av] [facility] Practice BP Diastolic 2020-09-11 00:00:00 79 mm[Hg] [facility] Practice Height 2020-09-11 00:00:00 62 [in_i] [facility] Practice BMI (Body Mass Index) 2020-09-11 00:00:00 35.8 kg/m2 [facility] BP Systolic 2020-09-11 00:00:00 141 mm[Hg] [facility] Body Weight 2020-09-11 00:00:00 196 [lb_av] [facility] BP Diastolic 2020-06-19 00:00:00 80 mm[Hg] [facility] Height 2020-06-19 00:00:00 62 [in_i] [facility] BMI (Body Mass Index) 2020-06-19 00:00:00 35.8 kg/m2 [facility] BP Systolic 2020-06-19 00:00:00 134 mm[Hg] [facility] Body Weight 2020-06-19 00:00:00 196 [lb_av] [facility] BP Diastolic 2019-11-09 00:00:00 64 mm[Hg] [facility] Height 2019-11-09 00:00:00 62 [in_i] [facility] BMI (Body Mass Index) 2019-11-09 00:00:00 35.6 kg/m2 [facility] BP Systolic 2019-11-09 00:00:00 154 mm[Hg] [facility] Body Weight 2019-11-09 00:00:00 194.6 [lb_av] [facility] Practice Procedures Procedure Date / Time Performing Clinician Source Performed Removal of Gallbladder 2019-07-12 00:00:00 [facility] Laparoscopic 2019-04-30 00:00:00 [facility] michael Cholecystectomy Practice Colonoscopy [facility] Procedure on Kidney [facility] Fany rodriguez Practice Procedure on Bladder [facility] vidhi Practice Operation on Cervix [facility] Fany rodriguez Practice Breast Surgery [facility] Plan of Care Planned Activity [...] Facility Department ID 2021-10-01 Outpatient Salvador, [facility] [id number] Common 13:17:00 Jesus [facility] 2021-09-18 Outpatient Annmarie, [facility] [id number] Common 14:32:00 Mouin [facility] 2021-11-12 2021-11-12 OFFICE [facility] [id number] Co mmon 00:00:00 00:00:00 VISIT Spirit ESTAB PT - CHI LEVEL 4 [facility] 2021-10-01 2021-10-01 OFFICE [facility] [id number] Co mmon 00:00:00 00:00:00 VISIT NEW Spir it PT LEVEL 4 - [facility] 2021-03-23 2021-03-23 Outpatient Daniel_T VFP VFP [id number] [facility] 10:25:00 10:25:00 [id number] Family Practic e 2021-03-21 2021-03-21 Yuri Rodriguez_T VFP [place] - [id number] Village 00:00:00 00:00:00 [facility] [id number] Ramsey Chaudhry - Marcus vera MD: [id number] VM_KELVIN_Nestor e Shadow [facility], [address], [place] [address] , Ph. 2021-03-14 2021-03-14 Outpatient Daniel_T VFP VFP [id number] [facility] 03:48:00 03:48:00 [id number] Family Practic e 2020-12-22 2020-12-22 Outpatient Daniel_T VFP VFP [id number] [facility] 01:15:00 01:15:00 [id number] Family Practic e 2020-12-212020-12-21 Outpatient Daniel_T VFP VFP [id number] 10-30 [facility] 10:26:00 10:26:00 [id number] Family Practic e 2020-12-19 2020-12-19 Yuri Daniel_T VFP [place] - [id number] [facility] 00:00:00 00:00:00 [facility] [id number] Family RodriguezRamsey MD: [id number] Angie curry Shadow ow [facility], [address], [place] [address] , Ph. 2020-12-12 2020-12-12 Outpatient Daniel_T VFP VFP [id number] 10-30 [facility] 11:08:00 11:08:00 [id number] Family Practic e 2020-09-26 2020-09-26 Outpatient Daniel_T VFP VFP [id number] [facility] 05:04:00 05:04:00 [id number] Family Practic e 2020-09-22 2020-09-22 Yuri Daniel_T VFP [place] - [id number] [facility] 00:00:00 00:00:00 [facility] [id number] Family RodriguezRamsey MD: [id number] Angie curry Shadow [facility] [address], [place] [address] , Ph. 2020-09-14 2020-09-14 Outpatient Daniel_T VFP VFP [id number] 10-30 [facility] 03:01:00 03:01:00 [id number] Family Practic e 2020-09-11 2020-09-11 Yuri Daniel_T VFP [place] - [id number] [facility] 00:00:00 00:00:00 [facility] [id number] Ramsey Rodriguez MD: [id number] Angie curry Shadow ow [facility] [address], [place] [address] , Ph. 2020-07-28 2020-07-28 Outpatient Daniel_T VFP VFP [id number] 10-30 [facility] 01:29:00 01:29:00 [id number] Family Practic e 2020-06-21 2020-06-21 Outpatient Daniel_T VFP VFP [id number] [facility] 06:47:00 06:47:00 [id number] Family Practic e 2020-06-19 2020-06-19 Yuri Daniel_T VFP [place] - [id number] Village 00:00:00 00:00:00 [facility] [id number] Ramsey Rodriguez MD: [id number] DUANE_Susu e Shadow [facility] [address], [place] [address] , Ph. 2020-03-20 2020-03-20 Outpatient Daniel_T VFP VFP [id number] 10-30 [facility] 09:49:00 09:49:00 Family Practic e 2019-11-12 2019-11-12 Outpatient Daniel_T VFP VFP [id number] 10-30 [facility] 06:54:00 06:54:00 Family Practic e 2019-11-09 2019-11-09 Yuri Daniel_T VFP [place] - [id number] [facility] 00:00:00 00:00:00 [facility] [id number] Ramsey Rodriguez MD: [id number] DUANE_Jimena e Shadow [facility], [address], [place] [address] , Ph. 2019-10-27 2019-10-27 Outpatient Daniel_T VFP VFP [id number] 10-30 [facility] 10:48:00 10:48:00 [id number] Family Practic e Results Test Description Test Time Test Comments Results Result Comments Source Hemoglobin A1c measurement device panel 2021-03-21 10:07:47 Test Item Value Reference Range Interpretation Comme nts Hemoglobin A1C Fingerstick: (test code = Hemoglobin A1C Fingerstick :) 6.9 [facility] PracticeGlucose [Mass/volume] in Capillary [id number] 10:04:25 Test Item Value Reference Range Interpretation Comments Blood Glucose: mg/dl (test code = Blood 112 Glucose: mg/dl) [facility] PracticeHemoglobin A1c measurement device [id number] 11:02:48 Test Item Value Reference Range Interpretation Comments Hemoglobin A1C Fingerstick: (test code 7.2 = Hemoglobin A1C Fingerstick:) [facility] in Capillary [id number] 10:55:53 Test Item Value Reference Range Interpretation Comments Blood Glucose: mg/dl (test code = Blood 247 Glucose: mg/dl) [facility])2019-08-04 20:55:00 Test Item Value Reference Range Interpretation Comments SARS-COV2/RT-PCR (test Not Detected Not Detected, Negative code = 7208996) SARS-COV-2 PERFORMING LAB [facility] (test code = 4918131) Negative results do not preclude SARS-CoV-2 infection [...] of the Act.Fact Sheet for Healthcare Pro viders:https://www.[employer]/Documents/Xpert%20Xpress%20SARS%20CoV-2/Fact%20Sh eets/3023802%57EUVS-SWL-4%20HEALTHCARE%20PROVIDERS%20FACT%20SHEET.pdfFact Sheet for Healthcare Patients:https://www.[employer]/Documents/Xpert%20Xpress%20SARS%20CoV-2/Fact%20Sheets/3023801%20SARS-COV -2%20PATIENT%20FACT%20SHEET.pdfPerforming Laboratory:[facility] [place] [address]
[2022-01-12] MEDS ORDERED: NA CHLORIDE 0.9% 1,000 ML ONE (13:05)
[2022-01-12] MEDS ORDERED: NA CHLORIDE 0.9% 50 ML IV ONE (13:05)
[2022-01-12] MEDS ORDERED: CEFTRIAXONE 1000 MG/VIAL ONE (13:05)
[2022-01-12] MEDS ORDERED: NA CHLORIDE 0.9% 500 ML ONE (13:05)
--- NOTE | 2022-01-12 13:41 | RAD REPORT ---
EXAM DESCRIPTION: Bhavik Single View01/12/2022 1:06 pm CLINICAL HISTORY: Cough COMPARISON: December 22, 2021 FINDINGS: The lungs appear clear of acute infiltrate. The heart is normal size IMPRESSION: No acute abnormalities displayed
--- NOTE | 2022-01-12 14:20 | EDPHYS ---
Physician Documentation [facility] Name: Kiley Ortega Age: 76 yrs Sex: Female : 1945 Arrival Date: 01/12/2022 Time: 12:17 Bed 24 Private MD: ASHLEY Physician Eze Aguilera HPI: 01/12 14:13 This 76 yrs old Female presents to ER via EMS with complaints of Flu Symptoms.ivan 14:13 The patient has shortness of breath at rest, with light activity. Onset: The ivan symptoms/episode began/occurred 2 day(s) ago. Duration: The symptoms are continuous, and are steadily getting worse. The patient's shortness of breath is aggravated by coughing, is alleviated by sitting up, application of supplemental oxygen. The patient or guardian reports cough, described as moderate, difficulty breathing, flu symptoms, arthralgias, low-grade fever, myalgias, hoarse voice. fever , cough , productive. Historical: - Allergies: 14:02 Iodinated Contrast Media - IV Dye; eh3 14:02 Tegretol; eh3 14:02 trelegy; eh3 - Home Meds: 21:12 amlodipine 10 mg tab for Hypertension [Active]; aspirin 81 mg Oral TbEC 1 tab once eh3 daily [Active]; atorvastatin 20 mg Oral tab 1 tab once daily [Active]; Benadryl 25 mg Oral cap 1 cap twice a day [Active]; fluxetine 40 mg once daily [Active]; Glimepiride Oral [Active]; Insulin: Humalog Sub-Q [Active]; Januvia Oral [Active]; losartan 100 mg Oral tab 1 tab once daily for Hypertension [Active]; Lyrica 300mg Oral 1 cap 2 times per day for Diabetic Peripheral Neuropathy [Active]; metformin 500 mg Oral tab 2 tabs 2 times per day for Type 2 Diabetes Mellitus [Active]; omeprazole 40 mg Oral cpDR 1 cap once daily for Gastroesophageal reflux [Active]; - PMHx: 14:02 breast cancer-right side; cervical cancer; COPD; Diabetes - NIDDM; Hypertension; Kidney eh3 stone; Myopathy; neuropathy; TIA; - PSHx: 14:02 Total abdominal hysterectomy; eh3 - Immunization history:: Adult Immunizations Client reports receiving the 2nd dose of the Covid vaccine, Pneumococcal vaccine is not up to date, patient has never been vaccinated, Flu vaccine is not up to date. It has been more than one year since last vaccine. - Social history:: Smoking status: Patient denies any tobacco usage or history of. Patient/guardian denies using alcohol. ROS: 14:15 Constitutional: Negative for fever, chills, and weight loss, Eyes: Negative for injury, ivan pain, redness, and discharge, ENT: Negative for injury, pain, and discharge, Neck: Negative for injury, pain, and swelling, Cardiovascular: Negative for chest pain, palpitations, and edema, Abdomen/GI: Negative for abdominal pain, nausea, vomiting, diarrhea, and constipation, Back: Negative for injury and pain, : Negative for injury, bleeding, discharge, and swelling, MS/Extremity: Negative for injury and deformity, Skin: Negative for injury, rash, and discoloration, Neuro: Negative for headache, weakness, numbness, tingling, and seizure, Psych: Negative for depression, anxiety, suicide ideation, homicidal ideation, and hallucinations, Allergy/Immunology: Negative for hives, rash, and allergies, Endocrine: Negative for neck swelling, polydipsia, polyuria, polyphagia, and marked weight changes, Hematologic/Lymphatic: Negative for swollen nodes, abnormal bleeding, and unusual bruising. 14:15 Respiratory: Positive for cough, shortness of breath, wheezing, expiratory. 14:15 Neuro: Positive for weakness. Exam: 14:15 Constitutional: This is a well developed, well nourished patient who is awake, alert, ivan and in no acute distress. Head/Face: Normocephalic, atraumatic. Eyes: Pupils equal round and reactive to light, extra-ocular motions intact. Lids and lashes normal. Conjunctiva and sclera are non-icteric and not injected. Cornea within normal limits. Periorbital areas with no swelling, redness, or edema. ENT: Nares patent. No nasal discharge, no septal abnormalities noted. Tympanic membranes are normal and external auditory canals are clear. Oropharynx with no redness, swelling, or masses, exudates, or evidence of obstruction, uvula midline. Mucous membranes moist. Neck: Trachea midline, no thyromegaly or masses palpated, and no cervical lymphadenopathy. Supple, full range of motion without nuchal rigidity, or vertebral point tenderness. No Meningismus. Chest/axilla: Normal chest wall appearance and motion. Nontender with no deformity. No lesions are appreciated. Abdomen/GI: Soft, non-tender, with normal bowel sounds. No distension or tympany. No guarding or rebound. No evidence of tenderness throughout. Back: No spinal tenderness. No costovertebral tenderness. Full range of motion. Female : Normal external genitalia. Skin: Warm, dry with normal turgor. Normal color with no rashes, no lesions, and no evidence of cellulitis. MS/ Extremity: Pulses equal, no cyanosis. Neurovascular intact. Full, normal range of motion. Neuro: Awake and alert, GCS 15, oriented to person, place, time, and situation. Cranial nerves II-XII grossly intact. Motor strength 5/5 in all extremities. Sensory grossly intact. Cerebellar exam normal. Normal gait. Psych: Awake, alert, with orientation to person, place and time. Behavior, mood, and affect are within normal limits. 14:15 Cardiovascular: Rate: tachycardic, actual rate is 108 bpm, Rhythm: regular, Pulses: Pulses are 4+ in bilateral radial, brachial, femoral, popliteal, posterior tibial and and dorsalis pedis arteries.. Heart sounds: normal, Edema: is not appreciated, JVD: is noted bilaterally, to 2 cm. 14:15 ECG was reviewed by the Attending Physician. Vital Signs: 12:10 BP 138 / 55; Pulse 108; Resp 20; Temp 98.9; Pulse Ox 94% on R/A; Weight 94.8 kg; Height eh3 5 ft. 2 in. (157.48 cm); 13:00 BP 127 / 103; Pulse 90; Resp 20; Pulse Ox 98% on 1.5 lpm NC; eh3 14:00 BP 131 / 57; Pulse 90; Resp 20; Pulse Ox 98% on 1.5 lpm NC; eh3 15:00 BP 118 / 49; Pulse 90; Resp 20; Pulse Ox 98% on 1.5 lpm NC; eh3 16:00 BP 134 / 41; Pulse 99; Resp 18; Pulse Ox 97% on 1.5 lpm NC; eh3 17:00 BP 126 / 77; Pulse 97; Resp 19; Pulse Ox 95% on 1.5 lpm NC; eh3 18:00 BP 134 / 55; Pulse 91; Resp 16; Pulse Ox 95% on 1.5 lpm NC; eh3 19:00 BP 122 / 51; Pulse 93; Resp 16; Pulse Ox 95% on 1.5 lpm NC; eh3 20:00 BP 131 / 50; Pulse 94; Resp 18; Pulse Ox 96% on 1.5 lpm NC; eh3 21:00 BP 130 / 53; Pulse 92; Resp 18; Pulse Ox 95% on 1.5 lpm NC; eh3 12:10 Body Mass Index 38.23 (94.80 kg, 157.48 cm) eh3 Lj Coma Score: 14:34 Eye Response: spontaneous(4). Verbal Response: oriented(5). Motor Response: obeys ivan commands(6). Total: 15. Procedures: 14:35 Peripheral line: by aseptic technique a peripheral line was placed in the left external ivan jugular vein. MDM: 12:23 Patient medically screened. ivan 14:17 Differential diagnosis: asthma, Bronchitis CHF exacerbation, Chronic Obstructive ivan Pulmonary Disease obstructed airway, bronchitis, flu, URI, viral Infection, bacterial infection, URI, pneumonia UTI, pneumonia, pulmonary edema, Pulmonary Embolism Sepsis Unstable Angina. Antibiotic administration: Rocephin and Zithromax given. Differential Diagnosis sepsis, flu. The patient's Wells Deep Vein Thrombosis Score was calculated as follows: Heart Rate >100 BPM (1.5 Pts) Total Score: 0-2 Pts- Low Risk. The patient's pulmonary embolism risk score was calculated as follows: the patients heart rate is greater than 100 beats per minute (1.5 Pts) Total Score: 0-2 points. This patient was found to be at low risk for a pulmonary embolism by using the Well's assessment criteria. Immunization status: Pneumococcal vaccine: Influenza vaccine: Data reviewed: vital signs, nurses notes, EMS record, lab test result(s), EKG, radiologic studies, plain films. Data interpreted: panel monitor: not applicable for this patient encounter. rhythm is normal sinus rhythm. Test interpretation: by ED physician or midlevel provider: ECG, plain radiologic studies. Counseling: I had a detailed discussion with the patient and/or guardian regarding: the historical points, exam findings, and any diagnostic results supporting the discharge/admit diagnosis, lab results, radiology results, the need for further work-up and treatment in the hospital. 01/12 12:25 Order name: Basic Metabolic Panel; Complete Time: 15:24 [facility] 12 12:25 Order name: CBC with Diff; Complete Time: 15:24 [facility] 12 12:25 Order name: LFT's; Complete Time: 15:24 [facility] 12 12:25 Order name: Magnesium; Complete Time: 15:24 [facility] 12 12:25 Order name: NT PRO-BNP; Complete Time: 15:24 [facility] 12 12:25 Order name: PT-INR; Complete Time: 15:24 [facility] 12 12:25 Order name: Troponin HS; Complete Time: 15:24 [facility] 12 12:25 Order name: XRAY Chest (1 view); Complete Time: 13:58 [facility] 12 12:25 Order name: Blood Culture Adult (2) [facility] 01/12 12:25 Order name: Lactate w/ 2H reflex if indic.; Complete Time: 15:24 [facility] 01/12 12:25 Order name: COVID-19/FLU A+B; Complete Time: 15:24 [facility] 01/12 12:25 Order name: Urine Microscopic Only; Complete Time: 15:49 [facility] 12 15:16 Order name: Urine Dipstick-Ancillary; Complete Time: 15:24 [facility] 12 12:25 Order name: EKG; Complete Time: 12:26 [facility] 01/12 12:25 Order name: Cardiac monitoring; Complete Time: 12:33 [facility] 12 16:45 Order name: Chest Abd Pelvis Wo Con EDMS 12 12:25 Order name: EKG - Nurse/Tech; Complete Time: 13:54 [facility] 01/12 12:25 Order name: IV Saline Lock; Complete Time: 14:53 [facility] 01/12 12:25 Order name: Labs collected and sent; Complete Time: 14:53 [facility] 01/12 12:25 Order name: O2 Per Protocol; Complete Time: 12:33 [facility] 12 12:25 Order name: O2 Sat Monitoring; Complete Time: 12:33 [facility] 01/12 12:25 Order name: Urine Dipstick-Ancillary (obtain specimen); Complete Time: 15:15 [facility] EC:15 Rate is 92 beats/min. Rhythm is regular. QRS [place] is Normal. CT interval is normal. QRS ivan interval is normal. QT interval is normal. No Q waves. T waves are Normal. No ST changes noted. Clinical impression: NSR w/ Non-specific ST/T Changes and No evidence of ischemia. Interpreted by me. Reviewed by me. Administered Medications: 14:00 Drug: NS 0.9% 500 ml Route: IV; Rate: bolus; Site: left jugular; 3 15:16 Follow up: IV Status: Completed infusion; IV Intake: 500ml 3 14:00 Drug: NS 0.9% 1000 ml Route: IV; Rate: 125 ml/hr; Site: left jugular; 3 23:06 Follow up: IV Status: Infusion continued upon admission 3 14:00 Drug: Rocephin (cefTRIAXone) 1 grams Route: IV; Rate: per protocol; Site: left jugular; 3 14:15 Follow up: Response: No adverse reaction; IV Status: Completed infusion; IV Intake: [id number] 14:00 Drug: Magnesium Sulfate 2 grams Route: IVPB; Infused Over: 2 hrs; Site: left jugular; 3 16:30 Follow up: IV Status: Completed infusion; IV Intake: 50ml 3 14:40 Drug: Pepcid (famotidine) 20 mg Route: IVP; Site: left jugular; 3 15:27 Follow up: Response: No adverse reaction 3 14:42 Drug: SOLU-Medrol (methylPrednisoLONE) 125 mg Route: IVP; Site: left jugular; 3 15:27 Follow up: Response: Wheezing diminished eh3 14:45 Drug: Zithromax (azithromycin) 500 mg Route: IVPB; Infused Over: 1 hrs; Site: left [facility] jugular; 17:15 Follow up: Response: No adverse reaction; IV Status: Completed infusion; IV Intake: eh3 250ml 15:00 Drug: Xopenex (levalbuterol) 3.75 mg Route: Inhalation; 3 15:00 Drug: AtroVENT (ipratropium) Aerosol 0.5 mg Route: Inhalation; 3 17:00 Drug: Zofran (Ondansetron) 4 mg Route: IVP; Site: left jugular; 3 17:27 Follow up: Response: Nausea is decreased 3 17:02 Drug: morphine 2 mg Route: IVP; Infused Over: 4 mins; Site: left jugular; 3 17:27 Follow up: Response: Pain is decreased 3 17:17 Drug: NS 0.9% 500 ml Route: IV; Rate: bolus; Site: left jugular; eh3 18:00 Follow up: IV Status: Completed infusion; IV Intake: 500ml eh3 Disposition Summary: 01/12/22 14:19 Hospitalization Ordered Hospitalization Status: Observation ivan Provider: Jesus Franco cha Location: Telemetry/MedSurg (observation) ivan Condition: Fair ivan Problem: new ivan Symptoms: have improved ivan Bed/Room Type: Standard [facility] Room Assignment: [id number](01/12/22 19:42) mw Diagnosis - Fever, unspecified ivan - Acute upper respiratory infection, unspecified ivan - COPD/ Chronic obstructive pulmonary disease with acute lower respiratory infection ivan - Hypoxemia ivan - Hypomagnesemia ivan - Elevated white blood cell count ivan - Hypo-osmolality and hyponatremia ivan - Diarrhea, unspecified ivan Forms: - Medication Reconciliation Form ivan - SBAR form ivan Signatures: Dispatcher [employer] EDJerri Ríos RN RN mw Anderson, Corey, MD MD cha Hall, Erin, RN RN 3 Corrections: (The following items were deleted from the chart) 19:42 14:19 ivan mw
--- NOTE | 2022-01-12 14:20 | ER ---
Nurse's Notes [facility] Name: Kiley Ortega Age: 76 yrs Sex: Female : 1945 Arrival Date: 01/12/2022 Time: 12:17 Bed 24 Private MD: Diagnosis: Fever, unspecified;Acute upper respiratory infection, unspecified;COPD/ Chronic obstructive pulmonary disease with acute lower respiratory infection;Hypoxemia;Hypomagnesemia;Elevated white blood cell count;Hypo-osmolality and hyponatremia;Diarrhea, unspecified Presentation: 01/12 12:17 Chief complaint: EMS states: toned out for flu-like symptoms starting yesterday. Pt c/o eh3 SOB, fever, and cough with thick green mucus. Son was diagnosed with flu last week. Coronavirus screen: Vaccine status: Patient reports receiving the 2nd dose of the covid vaccine. 12:17 Method Of Arrival: EMS: [facility] 3 12:17 Acuity: [place] 3 eh3 12:17 Ebola Screen: No symptoms or risks identified at this time. Initial Sepsis Screen: Does eh3 the patient meet any 2 criteria? No. Patient's initial sepsis screen is negative. Does the patient have a suspected source of infection? Yes: Productive cough/pneumonia. 12:17 Risk Assessment: Do you want to hurt yourself or someone else? Patient reports no eh3 desire to harm self or others. 12:17 Onset of symptoms was January 11, 2022. eh3 Triage Assessment: 12:17 General: Appears in no apparent distress. uncomfortable, Behavior is calm, cooperative, eh3 appropriate for age. Pain: Complains of pain in chest Pain currently is 5 out of 10 on a pain scale. Quality of pain is described as pressure, Pain began 1 day ago. Also complains of shortness of breath. EENT: No signs and/or symptoms were reported regarding the EENT system. Neuro: Level of Consciousness is awake, alert, obeys commands, Oriented to person, place, time, situation. Cardiovascular: Capillary refill < 3 seconds Patient's skin is warm and dry. Rhythm is sinus rhythm. Respiratory: Airway is patent Respiratory effort is even, labored, Respiratory pattern is regular, symmetrical, Breath sounds with wheezes bilaterally. Respiratory: Reports cough that is productive. GI: No signs and/or symptoms were reported involving the gastrointestinal system. GI: Reports nausea. : No signs and/or symptoms were reported regarding the genitourinary system. Derm: No signs and/or symptoms reported regarding the dermatologic system. Musculoskeletal: No signs and/or symptoms reported regarding the musculoskeletal system. Circulation, motion, and sensation intact. Range of motion: intact in all extremities. Historical: - Allergies: 14:02 Iodinated Contrast Media - IV Dye; eh3 14:02 Tegretol; eh3 14:02 trelegy; eh3 - Home Meds: 21:12 amlodipine 10 mg tab for Hypertension [Active]; aspirin 81 mg Oral TbEC 1 tab once eh3 daily [Active]; atorvastatin 20 mg Oral tab 1 tab once daily [Active]; Benadryl 25 mg Oral cap 1 cap twice a day [Active]; fluxetine 40 mg once daily [Active]; Glimepiride Oral [Active]; Insulin: Humalog Sub-Q [Active]; Januvia Oral [Active]; losartan 100 mg Oral tab 1 tab once daily for Hypertension [Active]; Lyrica 300mg Oral 1 cap 2 times per day for Diabetic Peripheral Neuropathy [Active]; metformin 500 mg Oral tab 2 tabs 2 times per day for Type 2 Diabetes Mellitus [Active]; omeprazole 40 mg Oral cpDR 1 cap once daily for Gastroesophageal reflux [Active]; - PMHx: 14:02 breast cancer-right side; cervical cancer; COPD; Diabetes - NIDDM; Hypertension; Kidney eh3 stone; Myopathy; neuropathy; TIA; - PSHx: 14:02 Total abdominal hysterectomy; eh3 - Immunization history:: Adult Immunizations Client reports receiving the 2nd dose of the Covid vaccine, Pneumococcal vaccine is not up to date, patient has never been vaccinated, Flu vaccine is not up to date. It has been more than one year since last vaccine. - Social history:: Smoking status: Patient denies any tobacco usage or history of. Patient/guardian denies using alcohol. Screenin:17 Abuse screen: Denies threats or abuse. Denies injuries from another. Nutritional eh3 screening: No deficits noted. Tuberculosis screening: No symptoms or risk factors identified. Fall Risk Fall in past 12 months (25 points). IV access (20 points). Ambulatory Aid- None/Bed Rest/Nurse Assist (0 pts). Gait- Weak (10 pts.). Total Benoit Fall Scale indicates High Risk Score (45 or more points). Fall prevention measures have been instituted. Side Rails Up X 2 Placed Close to Nursing Station Frequent Obs/Assessments Occuring As available patient and family educated on Fall Prevention Program and Strategies. Assessment: 12:17 Reassessment: No changes from previously documented assessment. See triage assessment. eh3 13:00 Reassessment: Patient and/or family updated on plan of care and expected duration. Pain eh3 level reassessed. Pt is A\\T\\O x 4, equal, labored respirations, skin warm/dry/pink. Pt states, "I think my blood sugar is getting low." Glucerna shake provided, pt tolerated well. 14:00 Reassessment: Patient and/or family updated on plan of care and expected duration. Pain eh3 level reassessed. Pt is A\\T\\O x 4, equal, labored respirations, skin warm/dry/pink. 15:00 Reassessment: Patient and/or family updated on plan of care and expected duration. Pain eh3 level reassessed. Pt is A\\T\\O x 4, equal, labored respirations, skin warm/dry/pink. 16:00 GI: Stools are reported to be diarrhea. Reports bloating, cramping, Notified Dr. stephania Aguilera. 16:00 Reassessment: Patient and/or family updated on plan of care and expected duration. Pain eh3 level reassessed. Pt is A\\T\\O x 4, equal, labored respirations, skin warm/dry/pink. 17:00 Reassessment: Patient and/or family updated on plan of care and expected duration. Pain eh3 level reassessed. Pt is A\\T\\O x 4, equal, labored respirations, skin warm/dry/pink. 18:00 Reassessment: Patient appears in no apparent distress at this time. No changes from 3 previously documented assessment. Patient and/or family updated on plan of care and expected duration. Pain level reassessed. 19:00 Reassessment: Patient appears in no apparent distress at this time. No changes from 3 previously documented assessment. Patient and/or family updated on plan of care and expected duration. Pain level reassessed. 20:00 Reassessment: Patient appears in no apparent distress at this time. No changes from eh3 previously documented assessment. Patient and/or family updated on plan of care and expected duration. Pain level reassessed. 21:00 Reassessment: Patient appears in no apparent distress at this time. No changes from 3 previously documented assessment. Patient and/or family updated on plan of care and expected duration. Pain level reassessed. 22:00 Reassessment: Patient appears in no apparent distress at this time. No changes from [facility] previously documented assessment. Patient and/or family updated on plan of care and expected duration. Pain level reassessed. Vital Signs: 12:10 BP 138 / 55; Pulse 108; Resp 20; Temp 98.9; Pulse Ox 94% on R/A; Weight 94.8 kg; Height 3 5 ft. 2 in. (157.48 cm); 13:00 BP 127 / 103; Pulse 90; Resp 20; Pulse Ox 98% on 1.5 lpm NC; 3 14:00 BP 131 / 57; Pulse 90; Resp 20; Pulse Ox 98% on 1.5 lpm NC; 3 15:00 BP 118 / 49; Pulse 90; Resp 20; Pulse Ox 98% on 1.5 lpm NC; eh3 16:00 BP 134 / 41; Pulse 99; Resp 18; Pulse Ox 97% on 1.5 lpm NC; eh3 17:00 BP 126 / 77; Pulse 97; Resp 19; Pulse Ox 95% on 1.5 lpm NC; eh3 18:00 BP 134 / 55; Pulse 91; Resp 16; Pulse Ox 95% on 1.5 lpm NC; eh3 19:00 BP 122 / 51; Pulse 93; Resp 16; Pulse Ox 95% on 1.5 lpm NC; eh3 20:00 BP 131 / 50; Pulse 94; Resp 18; Pulse Ox 96% on 1.5 lpm NC; eh3 21:00 BP 130 / 53; Pulse 92; Resp 18; Pulse Ox 95% on 1.5 lpm NC; 3 12:10 Body Mass Index 38.23 (94.80 kg, 157.48 cm) 3 Muse Coma Score: 14:34 Eye Response: spontaneous(4). Verbal Response: oriented(5). Motor Response: obeys ivan commands(6). Total: 15. ED Course: 12:17 Patient arrived in ED. 3 12:17 Oxygen administration via nasal cannula 1.5L/min. 3 12:17 Patient has correct armband on for positive identification. Bed in low position. Call [facility] light in reach. Side rails up X2. Client placed on continuous cardiac and pulse oximetry monitoring. NIBP monitoring applied. Door closed. Noise minimized. Pillow given. 12:23 Eze Aguilera MD is Attending Physician. [facility] 12:32 Kimberly Wilson, YUNIOR is Primary Nurse. 3 13:07 XRAY Chest (1 view) In Process Unspecified. EDMS 13:54 COVID-19/FLU A+B Sent. 3 13:58 Triage completed. 3 14:14 Inserted saline lock: 18 gauge in left EJ, using aseptic technique. Blood collected. iw inserted by Dr. Aguilera. 14:18 Jesus Franco MD is Hospitalizing Provider. [facility] 15:15 Urine Microscopic Only Sent. 3 16:11 Assisted to bedside commode. 3 17:08 Chest Abd Pelvis Wo Con In Process Unspecified. EDMS 21:11 No provider procedures requiring assistance completed. Patient admitted, IV remains in [facility] place. 21:11 Arm band placed on right wrist. 3 Administered Medications: 14:00 Drug: NS 0.9% 500 ml Route: IV; Rate: bolus; Site: left jugular; [facility] 15:16 Follow up: IV Status: Completed infusion; IV Intake: 500ml [facility] 14:00 Drug: NS 0.9% 1000 ml Route: IV; Rate: 125 ml/hr; Site: left jugular; [facility] 23:06 Follow up: IV Status: Infusion continued upon admission [facility] 14:00 Drug: Rocephin (cefTRIAXone) 1 grams Route: IV; Rate: per protocol; Site: left jugular; [facility] 14:15 Follow up: Response: No adverse reaction; IV Status: Completed infusion; IV Intake: [id number] 14:00 Drug: Magnesium Sulfate 2 grams Route: IVPB; Infused Over: 2 hrs; Site: left jugular; [facility] 16:30 Follow up: IV Status: Completed infusion; IV Intake: 50ml [facility] 14:40 Drug: Pepcid (famotidine) 20 mg Route: IVP; Site: left jugular; [facility] 15:27 Follow up: Response: No adverse reaction [facility] 14:42 Drug: SOLU-Medrol (methylPrednisoLONE) 125 mg Route: IVP; Site: left jugular; eh3 15:27 Follow up: Response: Wheezing diminished eh3 14:45 Drug: Zithromax (azithromycin) 500 mg Route: IVPB; Infused Over: 1 hrs; Site: left eh3 jugular; 17:15 Follow up: Response: No adverse reaction; IV Status: Completed infusion; IV Intake: eh3 250ml 15:00 Drug: Xopenex (levalbuterol) 3.75 mg Route: Inhalation; eh3 15:00 Drug: AtroVENT (ipratropium) Aerosol 0.5 mg Route: Inhalation; eh3 17:00 Drug: Zofran (Ondansetron) 4 mg Route: IVP; Site: left jugular; eh3 17:27 Follow up: Response: Nausea is decreased eh3 17:02 Drug: morphine 2 mg Route: IVP; Infused Over: 4 mins; Site: left jugular; eh3 17:27 Follow up: Response: Pain is decreased 3 17:17 Drug: NS 0.9% 500 ml Route: IV; Rate: bolus; Site: left jugular; eh3 18:00 Follow up: IV Status: Completed infusion; IV Intake: 500ml eh3 Medication: 21:12 VIS not applicable for this client. eh3 Intake: 14:15 IV: 50ml; Total: 50ml. eh3 15:16 IV: 500ml; Total: 550ml. eh3 16:30 IV: 50ml; Total: 600ml. eh3 17:15 IV: 250ml; Total: 850ml. eh3 18:00 IV: 500ml; Total: 1350ml. eh3 Outcome: 14:19 Decision to Hospitalize by Provider. ivan 22:06 Admitted to Tele accompanied by tech, via wheelchair, room 407, with oxygen, with eh3 chart, Report called to Wilfredo 22:06 Condition: stable 22:06 Instructed on the need for admit. 23:04 Patient left the ED. eh3 Signatures: Dispatcher [employer] Eze Dueñas MD MD cha Williams, Irene, RN RN Kimberly Ragland RN RN eh3 Corrections: (The following items were deleted from the chart) 14:53 12:10 BP 138 / 55; Pulse 108bpm; Resp 20bpm; Pulse Ox 94% RA; Temp 98.9F; eh3 eh3 14:54 13:15 Reassessment: Patient and/or family updated on plan of care and expected eh3 duration. Pain level reassessed. Patient is alert, oriented x 3, equal unlabored respirations, skin warm/dry/pink. [facility] 16:13 13:00 Reassessment: Patient and/or family updated on plan of care and expected eh3 duration. Pain level reassessed. Patient is alert, oriented x 3, equal unlabored respirations, skin warm/dry/pink. [facility] 16:14 16:11 GI: Stools are reported to be diarrhea. Reports bloating, cramping, Notified Hiram Aguilera [facility] 16:16 13:00 Reassessment: Patient and/or family updated on plan of care and expected eh3 duration. Pain level reassessed. Patient is alert, oriented x 3, equal unlabored respirations, skin warm/dry/pink. Pt states, "I think my blood sugar is getting low." Glucerna shake provided, pt tolerated well [facility] 16:16 14:00 Reassessment: Patient and/or family updated on plan of care and expected eh3 duration. Pain level reassessed. Patient is alert, oriented x 3, equal unlabored respirations, skin warm/dry/pink. [facility] 16:19 12:17 Coronavirus screen: Vaccine status: [place] [id number] 16:19 12:17 Onset of symptoms was January 11, 2022 [place] [id number] 16:19 12:17 Risk Assessment: Do you want to hurt yourself or someone else? Patient reports no [facility] desire to harm self or others. [facility] 16:19 12:17 Initial Sepsis Screen: Does the patient meet any 2 criteria? [place] [id number] 16:19 12:17 Initial Sepsis Screen: Does the patient meet any 2 criteria? No. Patient's [facility] initial sepsis screen is negative. Does the patient have a suspected source of infection? Yes: Productive cough/pneumonia [facility] 17:29 16:00 Response: No adverse reaction; IV Status: Completed infusion; IV Intake: 250ml formerly [facility], [facility] 23:09 23:08 Reassessment: Patient appears in no apparent distress at this time. No changes [facility] from previously documented assessment. Patient and/or family updated on plan of care and expected duration. Pain level reassessed. [facility]
[2022-01-12] MEDS ORDERED: METHYLPREDNISOLONE 125 MG INJ ONE (14:30)
[2022-01-12] MEDS ORDERED: LEVALBUTEROL 1.25 MG/3 ML NEB ONE (14:30)
[2022-01-12] MEDS ORDERED: FAMOTIDINE 20 MG/2 ML VIAL IV ONE (14:31)
[2022-01-12] MEDS ORDERED: NA CHLORIDE 0.9% 250 ML ONE (14:31)
[2022-01-12] MEDS ORDERED: IPRATROPIUM BROM 0.5MG/2.5ML ONE (14:31)
[2022-01-12] MEDS ORDERED: AZITHROMYCIN 500 MG INJ IVPB ONE (14:31)
[2022-01-12 14:46] LABS: Protime INR 1.04
[2022-01-12 14:52] LABS: SARS-COV-2 RT PCR NEGATIVE (NEGATIVE)
[2022-01-12 14:56] LABS: Albumin 3.2 g/dL (3.4-5.0); Bilirubin Direct 0.1 mg/dL (0-0.2); Bilirubin Total 0.3 mg/dL (0.2-1.0); Magnesium 1.7 mg/dL (1.8-2.4); Potassium 4.2 mmol/L (3.5-5.1); Protein, Total 7.2 g/dL (6.4-8.2); Troponin High Sensitivity 5.8 pg/mL (<58.9)
[2022-01-12 14:59] LABS: Absolute Lymphocytes (CBC) 2.9 K/uL (0.7-4.9); Hematocrit 37.4 % (36.0-45.0); Lymphocytes % 17.7 % (15.3-44.8); MCV 88.4 fL (80-100); MPV 8.8 fL (7.6-11.3); RBC Red Blood Cell Count 4.23 M/uL (3.86-4.86)
[2022-01-12 15:15] LABS: Urine Blood Negative (Negative); Urine Glucose Negative (Negative); Urine Protein Negative (Negative); Urine Specific Gravity 1.015 (1.005-1.030); Urine pH 5.5 (5.0-7.0)
[2022-01-12 15:27] LABS: Urine Mucus Slight /HPF (None Seen); Urine RBC <5 /HPF (None Seen)
[2022-01-12] MEDS ORDERED: Magnesium Sulfate 2gm IVPB 2 G/50 ML BAG IV ONE (15:42)
[2022-01-12] MEDS ORDERED: ONDANSETRON 4 MG/2 ML VIAL ONE (16:55)
[2022-01-12] MEDS ORDERED: MORPHINE 2 MG/ML SYR ONE (16:55)
--- NOTE | 2022-01-12 17:26 | RAD REPORT ---
EXAM DESCRIPTION: CT - Chest Abd Pelvis Wo Con - 01/12/2022 5:06 pm CLINICAL HISTORY: Chest and abdominal pain COMPARISON: February 2021 abdomen TECHNIQUE: Computed axial tomography of the chest, abdomen and pelvis was obtained. Oral contrast wa s given. IV contrast was not requested. All CT scans are performed using dose optimization technique as appropriate and may include automated exposure control or mA/KV adjustment according to patient size. FINDINGS: The evaluation of mediastinum, agustin, vessels and solid organs is limited secondary to the lack of IV contrast administration The lungs are essentially clear. No mediastinal or hilar lymphadenopathy is seen. A pleural effusion is not present. A pericardial effusion is not seen. The liver, spleen, pancreas, adrenals and left kidney appear grossly normal Small right renal cyst There is no evidence of diverticulitis. Hysterectomy. No adnexal mass. Small umbilical hernia IMPRESSION: No acute abnormality displayed
[2022-01-12] MEDS ORDERED: ALBUTEROL 2.5 MG/3 ML NEB SOL NEB PRN (23:11)
[2022-01-12] MEDS ORDERED: IPRATROPIUM BROM 0.5MG/2.5ML NEB PRN (23:11)
[2022-01-12] MEDS ORDERED: ACETAMINOPHEN 325 MG TABLET PO PRN (23:17)
[2022-01-12] MEDS: NA CHLORIDE 0.9% 1,000 ML IV SCH (23:39)
[2022-01-12] MEDS: CEFTRIAXONE 1,000 MG in NA CHLORIDE 0.9% 50 ML IVPB SCH (23:39)
[2022-01-12] MEDS: ONDANSETRON 4 MG/2 ML VIAL IV PRN (23:40)
[2022-01-12] MEDS: FAMOTIDINE 20 MG/2 ML VIAL IV SCH (23:40)
[2022-01-12] MEDS: METHYLPREDNISOLONE 125 MG INJ IV SCH (23:40)
[2022-01-13 00:20] VITALS: BMI 38.2
[2022-01-13] MEDS ORDERED: DIPHENHYDRAMINE 25 MG TAB/CAP PO ONE (00:30)
[2022-01-13] MEDS ORDERED: ACETAMINOPHEN 500 MG TAB PO ONE (00:30)
[2022-01-13] MEDS ORDERED: PREGABALIN 150 MG CAP PO ONE (00:32)
[2022-01-13] MEDS: GUAIFENESIN/DM 5 ML UCUP PO PRN ×2 (01:08→21:16)
[2022-01-13 06:18] LABS: Absolute Lymphocytes (CBC) 1.1 K/uL (0.7-4.9); Hematocrit 35.8 % (36.0-45.0); Lymphocytes % 8.1 % (15.3-44.8); MCV 89.6 fL (80-100); MPV 8.7 fL (7.6-11.3)
[2022-01-13 06:28] LABS: Potassium 4.6 mmol/L (3.5-5.1)
--- NOTE | 2022-01-13 07:19 | RAD REPORT ---
EXAM DESCRIPTION: RAD - Chest Single View - 01/13/2022 6:52 am CLINICAL HISTORY: Chest Pain COMPARISON: CT chest 01/12/2022, portable chest 01/12/2022 TECHNIQUE: AP portable chest image was obtained 01/13/2022 6:52 am . FINDINGS: No new lung parenchymal process seen. Interstitial pattern is stable. Hilar regions are cl ear of gross mass or lymphadenopathy. Heart and vasculature are normal. No measurable pleural effusio n and no pneumothorax. No acute bony abnormality seen. No acute aortic findings suspected. IMPRESSION: No acute cardiopulmonary process. No significant change from comparison study.
[2022-01-13] MEDS: FAMOTIDINE 20 MG/2 ML VIAL IV SCH (08:52)
[2022-01-13] MEDS: METHYLPREDNISOLONE 125 MG INJ IV SCH ×2 (08:52→17:27)
[2022-01-13] MEDS: CEFTRIAXONE 1,000 MG in NA CHLORIDE 0.9% 50 ML IVPB SCH ×2 (08:53→09:00)
[2022-01-13] MEDS ORDERED: AZITHROMYCIN IV 250 MG in NA CHLORIDE 0.9% 250 ML IVPB SCH (09:00)
[2022-01-13] MEDS: NA CHLORIDE 0.9% 1,000 ML IV SCH ×2 (09:11→10:38)
--- NOTE | 2022-01-13 09:33 | P.HP ---
Certification for Inpatient Patient admitted to: Inpatient With expected LOS: >2 Midnights Practitioner: I am a practitioner with admitting privileges, knowledge of patient current condition, hospital course, and medical plan of care. Services: Services provided to patient in accordance with Admission requirements found in Title 42 Section 412.3 of the Code of Federal Regulations Patient History Date of Service: 01/13/22 Reason for admission: COUGH, SHORT OF BREATH, FEVER. History of Present Illness: JOSE WAS GOOD ABOUT 3 DAYS AGO. SHE GOT SICK WITH FEVER, COUGH, GREEN SPUTUM AND SHORTNESS OF BREATH. I WAS HOPING SHE WOULD BE BETTER THIS AM WITH DYSPNEA AND COUGH BUT SHE IS NOT. SHE IS STILL COUGHING AND WHEEZING. Allergies carbamazepine [From Tegretol] Allergy (Intermediate, Verified 05/17/19 14:46) Hives/Rash Iodinated Contrast Media [IV Dye, Iodine Containing Contrast ] Allergy (Intermediate, Verified 05/17/19 14:46) Hives Home medications list reviewed: Yes Home Medications: Aspirin [Aspir-Low] 81 mg PO DAILY 04/30/17 Atorvastatin Calcium [Lipitor*] 20 mg PO BEDTIME tab 06/01/19 Pregabalin [Lyrica] 300 mg PO BID #60 cap 06/01/19 Omeprazole 20 mg PO BID #60 tablet. 04/06/20 Acetaminophen [Tylenol Extra Strength] 1,000 mg PO BEDTIME 12/17/21 Amlodipine [Norvasc*] 10 mg PO DAILY 12/17/21 Diphenhydramine [Benadryl*] 50 mg PO BEDTIME 12/17/21 Fluoxetine HCl [Prozac] 40 mg PO DAILY 12/17/21 Losartan Potassium 100 tab PO DAILY 12/17/21 Metformin ER [Glucophage ER*] 500 mg PO BID 12/17/21 - Past Medical/Surgical History Has patient received pneumonia vaccine in the past: Yes Diabetic: Yes -: CVA -: HTN -: TIA -: IDDM -: COPD -: BREAST AND CERVICAL CA -: ANEMIA -: DEPRESSION/ANXIETY -: HEADACHES -: Bladder Suspension sx 4 -: Left Ankle Surgery -: Stomach surgery (ureter sx) -: Breast biopsy -: appy -: hysterectomy - Family History Father -: Hypertension, Stroke Mother -: Hypertension, Diabetes - Social History Smoking Status: Former smoker Alcohol use: No CD- Drugs: No Caffeine use: Yes Place of Residence: Home Review of Systems 10-point ROS is otherwise unremarkable General: Weakness Respiratory: Cough, Shortness of Breath Physical Examination - Vital Signs Temperature: 96.9 F Blood Pressure: 121/58 Pulse: 77 Respirations: 16 Pulse Ox (%): 94 - Physical Exam General: Oriented x3, Mild distress, Obese HEENT: Atraumatic, PERRLA, Mucous membr. moist/pink, EOMI, Sclerae nonicteric Neck: Supple, 2+ carotid pulse no bruit, No LAD, Without JVD or thyroid abnormality Respiratory: Clear to auscultation bilaterally, Normal air movement Cardiovascular: Regular rate/rhythm, Normal S1 S2 Gastrointestinal: Normal bowel sounds, No tenderness Musculoskeletal: No tenderness Integumentary: No rashes Neurological: Normal gait, Normal speech, Normal strength at 5/5 x4 extr, Normal tone, Normal affect Lymphatics: No axilla or inguinal lymphadenopathy - Studies Laboratory Data (last 24 hrs) 01/12/22 14:14: PT 11.4, INR 1.04 01/12/22 14:14: WBC 16.30 H, Hgb 12.0, Hct 37.4, Plt Count 295 01/12/22 14:14: Sodium 134 L, Potassium 4.2, BUN 12, Creatinine 0.71, Glucose 138 H, Magnesium 1.7 L, Total Bilirubin 0.3, AST 13 L, ALT 27, Alkaline Phosphatase 113 Microbiology Data (last 24 hrs): 01/12/22 15:25 Blood - Blood Anaerobic Blood Culture - Final Assessment and Plan - Problems (Diagnosis) (1) Acute bronchiolitis Current Visit: Yes Status: Acute Plan: RECURRENT BRONCHITIS. LOOKING AT HISTORY BEFORE I STARTED SEEING HER SHE HAS BEEN IN HOSPITAL MANY TIMES FOR DYSPNEA. SHE IS STABLE. CHANGE ANTIBIOTIC TO LEVAQUIN ROCEPHIN AND ZITHROMAX ARE NOT WORKING. STEROIDS FOR SHORT DURATION. NEBS. I ASKED DR. TAVAREZ TO DO CT AND PNEUMONIA IS RULED OUT. (2) Diabetes mellitus type 2 Current Visit: No Status: Chronic Plan: FS ACHS MOD SS. - Advance Directives Does patient have a Living Will: No Does patient have a Durable POA for Healthcare: No
[2022-01-13 09:56] LABS: Platelet Estimate ADEQ; White Blood Cell Scan OK (OK)
[2022-01-13 09:57] LABS: Blood Morphology Comment NOT SEEN (NOT SEEN)
[2022-01-13] MEDS ORDERED: INFLUENZA VACCINE (for 6+ mo) 0.5 ML DOSE IMVAC ONE (10:00)
[2022-01-13] MEDS: levoFLOXacin 500 MG TAB PO SCH (10:38)
[2022-01-13] MEDS: PREGABALIN 150 MG CAP PO SCH ×2 (10:38→21:17)
[2022-01-13] MEDS: METFORMIN ER 500 MG TAB PO SCH ×2 (10:38→21:17)
[2022-01-13] MEDS: ASPIRIN EC 81 MG TAB PO SCH (10:39)
[2022-01-13] MEDS: LOSARTAN POTASSIUM 50 MG TABLET PO SCH (10:39)
[2022-01-13] MEDS: PANTOPRAZOLE 40MG TABLET PO SCH ×2 (10:39→21:19)
[2022-01-13] MEDS: AMLODIPINE 10 MG TAB PO SCH (10:39)
[2022-01-13] MEDS: FLUOXETINE 20 MG CAP PO SCH (10:39)
[2022-01-13] MEDS ORDERED: GLUCAGON 1 MG/VIAL IM PRN (20:31)
[2022-01-13] MEDS ORDERED: D50W 25 GM/50 ML SYRINGE IV PRN (20:31)
[2022-01-13] MEDS ORDERED: D10W 125 ML IV PRN (20:36)
[2022-01-13] MEDS: INSULIN -REGULAR HUMAN 50 UNIT/0.5 ML ML SQ SCH (21:15)
[2022-01-13] MEDS: DIPHENHYDRAMINE 25 MG TAB/CAP PO SCH (21:18)
[2022-01-13] MEDS: ATORVASTATIN 20 MG TAB PO SCH (21:18)
[2022-01-14] MEDS: ACETAMINOPHEN 500 MG TAB PO SCH ×2 (00:19→20:23)
[2022-01-14] MEDS: METHYLPREDNISOLONE 125 MG INJ IV SCH ×3 (00:57→16:02)
[2022-01-14] MEDS: INSULIN -REGULAR HUMAN 50 UNIT/0.5 ML ML SQ SCH ×6 (01:13→20:25)
[2022-01-14 08:09] LABS: Potassium 5.1 mmol/L (3.5-5.1)
[2022-01-14 08:49] LABS: Absolute Lymphocytes (CBC) 1.2 K/uL (0.7-4.9); Hematocrit 35.7 % (36.0-45.0); Lymphocytes % 7.1 % (15.3-44.8); MCV 89.5 fL (80-100); MPV 8.8 fL (7.6-11.3); RBC Red Blood Cell Count 3.99 M/uL (3.86-4.86)
[2022-01-14] MEDS: LOSARTAN POTASSIUM 50 MG TABLET PO SCH (09:00)
[2022-01-14] MEDS: METFORMIN ER 500 MG TAB PO SCH ×2 (09:30→20:24)
[2022-01-14] MEDS: FLUOXETINE 20 MG CAP PO SCH (09:30)
[2022-01-14] MEDS: levoFLOXacin 500 MG TAB PO SCH (09:30)
[2022-01-14] MEDS: PREGABALIN 150 MG CAP PO SCH ×2 (09:30→20:23)
[2022-01-14] MEDS: ASPIRIN EC 81 MG TAB PO SCH (09:30)
[2022-01-14] MEDS: AMLODIPINE 10 MG TAB PO SCH (09:31)
[2022-01-14] MEDS: PANTOPRAZOLE 40MG TABLET PO SCH ×2 (09:31→20:24)
[2022-01-14] MEDS: GUAIFENESIN/DM 5 ML UCUP PO PRN ×2 (09:35→22:14)
--- NOTE | 2022-01-14 13:51 | EKG ---
Test Date: 2022-01-12 Test Time: 13:35:48 Cigarette Packer: EDEN MEASUREMENT RESULTS: Intervals: Rate: 92 [place]: 168 QRSD: 66 QT: 350 QTc: 432 [place]: P: 82 [place]: 168 QRS: 49 T: 73 INTERPRETIVE STATEMENTS: Normal sinus rhythm Normal ECG Compared to ECG 12/22/2021 05:59:20 ST (T wave) deviation no longer present Electronically Signed On 01-14-22 13:49:43 INFORMATION TECHNOLOGY PROGRAM MANAGER by Eliazar Bergeron
[2022-01-14] MEDS ORDERED: ALBUTEROL 2.5 MG/3 ML NEB SOL NEB PRN (15:00)
[2022-01-14] MEDS: NA CHLORIDE 0.9% 1,000 ML IV SCH (16:03)
--- NOTE | 2022-01-14 17:41 | P.PN ---
Subjective Date of Service: 01/14/22 Chief Complaint: COUGH, SHORT OF BREATH, FEVER. Subjective: Improving SHE IS SLIGHTLY BETTER SHE SAYS. SHE IS NOT READY TO GO HOME YET. FATIGUED, WEAK. Review of Systems 10-point ROS is otherwise unremarkable General: Weakness, Malaise Respiratory: Shortness of Breath Physical Examination - Vital Signs Temperature: 97.2 F Blood Pressure: 126/52 Pulse: 78 Respirations: 20 Pulse Ox (%): 99 - Physical Exam General: Oriented x3, Mild distress, Moderate distress, Obese HEENT: Atraumatic, PERRLA, EOMI Neck: Supple, JVD not distended Respiratory: Clear to auscultation bilaterally, Normal air movement Cardiovascular: Regular rate/rhythm, Normal S1 S2 Gastrointestinal: Normal bowel sounds, No tenderness Musculoskeletal: No tenderness Integumentary: No rashes Neurological: Normal speech, Normal tone, Normal affect Lymphatics: No axilla or inguinal lymphadenopathy - Studies Microbiology Data (last 24 hrs): 01/12/22 15:25 Blood - Blood Anaerobic Blood Culture - Final Medications List Reviewed: Yes Assessment And Plan - Current Problems (Diagnosis) (1) Acute bronchiolitis Current Visit: Yes Status: Acute Plan: RECURRENT BRONCHITIS. LOOKING AT HISTORY BEFORE I STARTED SEEING HER SHE HAS BEEN IN HOSPITAL MANY TIMES FOR DYSPNEA. SHE IS STABLE. CHANGE ANTIBIOTIC TO LEVAQUIN ROCEPHIN AND ZITHROMAX ARE NOT WORKING. STEROIDS FOR SHORT DURATION. NEBS. I ASKED DR. TAVAREZ TO DO CT AND PNEUMONIA IS RULED OUT. HYPOXIA WITH AMBULATION DOWN TO 77% REFER TO REHAB. SHE WANTS TO GO THERE SHE IS WEAK. (2) Diabetes mellitus type 2 Current Visit: No Status: Chronic Plan: FS ACHS MOD SS. STEROIDS HAVE RAISED THE GLUCOSE. CONT AGGRESSIVE SLIDING SCALE.
[2022-01-14] MEDS: DIPHENHYDRAMINE 25 MG TAB/CAP PO SCH (20:24)
[2022-01-14] MEDS: ATORVASTATIN 20 MG TAB PO SCH (20:24)
[2022-01-15] MEDS: METHYLPREDNISOLONE 125 MG INJ IV SCH ×3 (01:09→17:52)
[2022-01-15] MEDS: INSULIN -REGULAR HUMAN 50 UNIT/0.5 ML ML SQ SCH ×6 (01:09→20:16)
[2022-01-15] MEDS: LOSARTAN POTASSIUM 50 MG TABLET PO SCH (08:35)
[2022-01-15] MEDS: ASPIRIN EC 81 MG TAB PO SCH (08:35)
[2022-01-15] MEDS: levoFLOXacin 500 MG TAB PO SCH (08:35)
[2022-01-15] MEDS: AMLODIPINE 10 MG TAB PO SCH (08:35)
[2022-01-15] MEDS: METFORMIN ER 500 MG TAB PO SCH ×2 (08:35→20:16)
[2022-01-15] MEDS: PREGABALIN 150 MG CAP PO SCH ×2 (08:36→20:15)
[2022-01-15] MEDS: FLUOXETINE 20 MG CAP PO SCH (08:36)
[2022-01-15] MEDS: PANTOPRAZOLE 40MG TABLET PO SCH ×2 (08:36→20:15)
[2022-01-15] MEDS: ENOXAPARIN 40 MG/0.4 ML SQ SCH (08:37)
[2022-01-15] MEDS: GUAIFENESIN/DM 5 ML UCUP PO PRN ×2 (09:21→23:22)
[2022-01-15] MEDS: DIPHENHYDRAMINE 25 MG TAB/CAP PO SCH (20:15)
[2022-01-15] MEDS: ATORVASTATIN 20 MG TAB PO SCH (20:15)
[2022-01-15] MEDS: ACETAMINOPHEN 500 MG TAB PO SCH (20:16)
--- NOTE | 2022-01-15 21:21 | P.PN ---
Subjective Date of Service: 01/15/22 Chief Complaint: WEAK, SHORT OF BREATH Subjective: Improving SHE IS SLIGHTLY BETTER SHE SAYS. SHE IS NOT READY TO GO HOME YET. FATIGUED, WEAK. SHE FEELS LITTLE BETTER DAILY Review of Systems 10-point ROS is otherwise unremarkable General: Weakness, Malaise Physical Examination - Vital Signs Temperature: 97.6 F Blood Pressure: 144/54 Pulse: 80 Respirations: 18 Pulse Ox (%): 98 - Physical Exam General: Oriented x3, Mild distress, Moderate distress, Obese HEENT: Atraumatic, PERRLA, EOMI Neck: Supple, JVD not distended Respiratory: Diminished Cardiovascular: Regular rate/rhythm, Normal S1 S2 Gastrointestinal: Normal bowel sounds, No tenderness Musculoskeletal: No tenderness Integumentary: No rashes Neurological: Normal speech, Normal tone, Normal affect Lymphatics: No axilla or inguinal lymphadenopathy - Studies Medications List Reviewed: Yes Assessment And Plan - Current Problems (Diagnosis) (1) Acute bronchiolitis Current Visit: Yes Status: Acute Plan: RECURRENT BRONCHITIS. LOOKING AT HISTORY BEFORE I STARTED SEEING HER SHE HAS BEEN IN HOSPITAL MANY TIMES FOR DYSPNEA. SHE IS STABLE. CHANGE ANTIBIOTIC TO LEVAQUIN ROCEPHIN AND ZITHROMAX ARE NOT WORKING. STEROIDS FOR SHORT DURATION. NEBS. I ASKED DR. TAVAREZ TO DO CT AND PNEUMONIA IS RULED OUT. HYPOXIA WITH AMBULATION DOWN TO 77% REFER TO REHAB. SHE WANTS TO GO THERE SHE IS WEAK. CONT MEDS. STABLE BUT NOT CURED YET. CONT NEBS. ADD BROVANA. CONT LEVAQUIN. SHE IS ACTING MORE LIKE COPD. (2) Diabetes mellitus type 2 Current Visit: No Status: Chronic Plan: FS ACHS MOD SS. STEROIDS HAVE RAISED THE GLUCOSE. CONT AGGRESSIVE SLIDING SCALE.
[2022-01-16] MEDS: NA CHLORIDE 0.9% 1,000 ML IV SCH (00:11)
[2022-01-16] MEDS: METHYLPREDNISOLONE 125 MG INJ IV SCH ×3 (00:21→17:37)
[2022-01-16] MEDS: INSULIN -REGULAR HUMAN 50 UNIT/0.5 ML ML SQ SCH ×6 (00:21→20:53)
[2022-01-16] MEDS: ONDANSETRON 4 MG/2 ML VIAL IV PRN (05:35)
[2022-01-16] MEDS: IPRATROPIUM BROM 0.5MG/2.5ML NEB PRN (05:55)
[2022-01-16 06:55] LABS: Urine Bilirubin NEGATIVE (Negative); Urine Blood Negative (Negative); Urine Clarity Clear (Clear); Urine Color Colorless (Yellow); Urine Glucose 4+ (Over) (Negative); Urine Protein NEGATIVE (Negative); Urine Urobilinogen Normal (Normal)
[2022-01-16] MEDS: ARFORMOTEROL TARTRATE 15 MCG/2 ML VIAL.NEB NEB SCH ×2 (08:00→21:00)
[2022-01-16] MEDS: GUAIFENESIN/DM 5 ML UCUP PO PRN ×2 (09:26→21:39)
[2022-01-16] MEDS: ASPIRIN EC 81 MG TAB PO SCH (09:28)
[2022-01-16] MEDS: METFORMIN ER 500 MG TAB PO SCH ×2 (09:28→20:17)
[2022-01-16] MEDS: ENOXAPARIN 40 MG/0.4 ML SQ SCH (09:28)
[2022-01-16] MEDS: LOSARTAN POTASSIUM 50 MG TABLET PO SCH (09:29)
[2022-01-16] MEDS: FLUOXETINE 20 MG CAP PO SCH (09:29)
[2022-01-16] MEDS: AMLODIPINE 10 MG TAB PO SCH (09:29)
[2022-01-16] MEDS: levoFLOXacin 500 MG TAB PO SCH (09:29)
[2022-01-16] MEDS: PANTOPRAZOLE 40MG TABLET PO SCH ×2 (09:29→20:17)
[2022-01-16] MEDS: PREGABALIN 150 MG CAP PO SCH ×2 (10:55→20:22)
--- NOTE | 2022-01-16 11:56 | RAD REPORT ---
EXAM DESCRIPTION: CTSinus Wo Cont01/16/2022 11:24 am CLINICAL HISTORY: Cough/polyps COMPARISON: None. TECHNIQUE: Computed axial tomography of the sinuses were obtained with coronal and sagittal reconstr uction. All CT scans are performed using dose optimization technique as appropriate and may include automated exposure control or mA/KV adjustment according to patient size. FINDINGS: Defect within the medial irving of the maxillary sinuses bilaterally presumably postsurgica l. Mild to moderate mucoperiosteal thickening floor right maxillary sinus. Left maxillary, ethmoid, frontal and sphenoid sinuses clear Ostiomeatal complex is clear Left asif bullosa. Nasal septum deviated towards the right. IMPRESSION: Mild to moderate chronic right maxillary sinusitis Patent ostiomeatal complexes
--- NOTE | 2022-01-16 17:59 | P.PN ---
Subjective Date of Service: 01/16/22 Chief Complaint: WEAK, SHORT OF BREATH Subjective: Improving SHE IS SLIGHTLY BETTER SHE SAYS. SHE IS NOT READY TO GO HOME YET. FATIGUED, WEAK. SHE FEELS LITTLE BETTER DAILY STABLE SLOW IMP. NURSE CALLED IN PM ABOUT SHROT RUN OF V TACH AND A FIB. I ASKED FOR STAT LAB AND ADDED METOPROLOL. Physical Examination - Vital Signs Temperature: 97.2 F Blood Pressure: 137/66 Pulse: 83 Respirations: 18 Pulse Ox (%): 98 - Physical Exam General: Oriented x3, Mild distress, Moderate distress, Obese HEENT: Atraumatic, PERRLA, EOMI Neck: Supple, JVD not distended Respiratory: Clear to auscultation bilaterally, Normal air movement Cardiovascular: Regular rate/rhythm, Normal S1 S2 Gastrointestinal: Normal bowel sounds, No tenderness Musculoskeletal: No tenderness Integumentary: No rashes Neurological: Normal speech, Normal tone, Normal affect Lymphatics: No axilla or inguinal lymphadenopathy - Studies Medications List Reviewed: Yes Assessment And Plan - Current Problems (Diagnosis) (1) Acute bronchiolitis Current Visit: Yes Status: Acute Plan: RECURRENT BRONCHITIS. LOOKING AT HISTORY BEFORE I STARTED SEEING HER SHE HAS BEEN IN HOSPITAL MANY TIMES FOR DYSPNEA. SHE IS STABLE. CHANGE ANTIBIOTIC TO LEVAQUIN ROCEPHIN AND ZITHROMAX ARE NOT WORKING. STEROIDS FOR SHORT DURATION. NEBS. I ASKED DR. TAVAREZ TO DO CT AND PNEUMONIA IS RULED OUT. HYPOXIA WITH AMBULATION DOWN TO 77% REFER TO REHAB. SHE WANTS TO GO THERE SHE IS WEAK. CONT MEDS. STABLE BUT NOT CURED YET. CONT NEBS. ADD BROVANA. CONT LEVAQUIN. SHE IS ACTING MORE LIKE COPD. (2) Diabetes mellitus type 2 Current Visit: No Status: Chronic Plan: FS ACHS MOD SS. STEROIDS HAVE RAISED THE GLUCOSE. CONT AGGRESSIVE SLIDING SCALE. (3) A-fib Current Visit: Yes Status: Acute Plan: SHORT RUN CHECK K AND MAG ADD METOPROLOL IF CONTINUES WILL ADD ELIQUIS. CONSULT CARDIOLOGY.
[2022-01-16 18:36] LABS: Absolute Lymphocytes (CBC) 1.9 K/uL (0.7-4.9); Hematocrit 40.1 % (36.0-45.0); Lymphocytes % 16.6 % (15.3-44.8); MCV 88.4 fL (80-100); MPV 8.6 fL (7.6-11.3); RBC Red Blood Cell Count 4.54 M/uL (3.86-4.86)
[2022-01-16 18:43] LABS: Potassium 4.2 mmol/L (3.5-5.1)
[2022-01-16] MEDS: ACETAMINOPHEN 500 MG TAB PO SCH (20:17)
[2022-01-16] MEDS: ATORVASTATIN 20 MG TAB PO SCH (20:18)
[2022-01-16] MEDS: METOPROLOL XL 25 MG TAB PO SCH (20:18)
[2022-01-16] MEDS: DIPHENHYDRAMINE 25 MG TAB/CAP PO SCH (20:19)
[2022-01-16] MEDS: LEVALBUTEROL 0.63 MG/3 ML NEB NEB SCH (21:00)
[2022-01-16] MEDS ORDERED: FLEET ENEMA ADULT PR ONE (21:47)
[2022-01-17] MEDS: METHYLPREDNISOLONE 125 MG INJ IV SCH ×3 (00:27→17:24)
[2022-01-17] MEDS: INSULIN -REGULAR HUMAN 50 UNIT/0.5 ML ML SQ SCH ×6 (00:27→21:38)
[2022-01-17] MEDS: LEVALBUTEROL 0.63 MG/3 ML NEB NEB SCH ×4 (01:25→20:15)
[2022-01-17] MEDS: IPRATROPIUM BROM 0.5MG/2.5ML NEB PRN (01:25)
[2022-01-17] MEDS: GUAIFENESIN/DM 5 ML UCUP PO PRN (06:12)
[2022-01-17] MEDS: ONDANSETRON 4 MG/2 ML VIAL IV PRN (06:12)
[2022-01-17] MEDS: ASPIRIN EC 81 MG TAB PO SCH (07:52)
[2022-01-17] MEDS: FLUOXETINE 20 MG CAP PO SCH (07:52)
[2022-01-17] MEDS: PANTOPRAZOLE 40MG TABLET PO SCH ×2 (07:52→21:36)
[2022-01-17] MEDS: ENOXAPARIN 40 MG/0.4 ML SQ SCH (07:52)
[2022-01-17] MEDS: LOSARTAN POTASSIUM 50 MG TABLET PO SCH (07:52)
[2022-01-17] MEDS: AMLODIPINE 10 MG TAB PO SCH (07:52)
[2022-01-17] MEDS: levoFLOXacin 500 MG TAB PO SCH (07:52)
[2022-01-17] MEDS: METFORMIN ER 500 MG TAB PO SCH ×2 (07:53→21:36)
[2022-01-17] MEDS: FLUTICASONE 50MCG NASAL SPRAY NAS SCH ×2 (07:53→21:38)
[2022-01-17] MEDS: PREGABALIN 150 MG CAP PO SCH ×2 (07:53→21:36)
[2022-01-17] MEDS: ARFORMOTEROL TARTRATE 15 MCG/2 ML VIAL.NEB NEB SCH ×2 (08:57→20:15)
--- NOTE | 2022-01-17 13:07 | P.PN ---
Subjective Date of Service: 01/17/22 Chief Complaint: WEAK, SHORT OF BREATH Subjective: Improving SHE IS SLIGHTLY BETTER SHE SAYS. SHE IS NOT READY TO GO HOME YET. FATIGUED, WEAK. SHE FEELS LITTLE BETTER DAILY STABLE SLOW IMP. NURSE CALLED IN PM ABOUT SHROT RUN OF V TACH AND A FIB. I ASKED FOR STAT LAB AND ADDED METOPROLOL. COUGH IS BETTER STILL WEAK NOT WALKING MUCH. NEEDS PT. Review of Systems 10-point ROS is otherwise unremarkable General: Weakness Respiratory: Shortness of Breath Physical Examination - Vital Signs Temperature: 96.8 F Blood Pressure: 114/56 Pulse: 71 Respirations: 19 Pulse Ox (%): 98 - Physical Exam General: Oriented x3, Cooperative, Mild distress, Obese HEENT: Atraumatic, PERRLA, EOMI Neck: Supple, JVD not distended Respiratory: Diminished Cardiovascular: Regular rate/rhythm, Normal S1 S2 Gastrointestinal: Normal bowel sounds, No tenderness Musculoskeletal: No tenderness Integumentary: No rashes Neurological: Normal speech, Normal tone, Normal affect, Abnormal strength (GEN WEAK. WANTS PT.) Lymphatics: No axilla or inguinal lymphadenopathy - Studies Medications List Reviewed: Yes Assessment And Plan - Current Problems (Diagnosis) (1) Acute bronchiolitis Current Visit: Yes Status: Acute Plan: RECURRENT BRONCHITIS. LOOKING AT HISTORY BEFORE I STARTED SEEING HER SHE HAS BEEN IN HOSPITAL MANY TIMES FOR DYSPNEA. SHE IS STABLE. CHANGE ANTIBIOTIC TO LEVAQUIN ROCEPHIN AND ZITHROMAX ARE NOT WORKING. STEROIDS FOR SHORT DURATION. NEBS. I ASKED DR. TAVAREZ TO DO CT AND PNEUMONIA IS RULED OUT. HYPOXIA WITH AMBULATION DOWN TO 77% REFER TO REHAB. SHE WANTS TO GO THERE SHE IS WEAK. CONT MEDS. STABLE BUT NOT CURED YET. CONT NEBS. ADD BROVANA. CONT LEVAQUIN. SHE IS ACTING MORE LIKE COPD. (2) Diabetes mellitus type 2 Current Visit: No Status: Chronic Plan: FS ACHS MOD SS. STEROIDS HAVE RAISED THE GLUCOSE. CONT AGGRESSIVE SLIDING SCALE. (3) A-fib Current Visit: Yes Status: Acute Plan: SHORT RUN CHECK K AND MAG ADD METOPROLOL IF CONTINUES WILL ADD ELIQUIS. CONSULT CARDIOLOGY. (4) Recurrent sinus infections Current Visit: Yes Status: Acute Plan: FLONASE NASAL SPRAY. (5) General weakness Current Visit: Yes Status: Acute Plan: WANTS PT. [facility]- TD CAME TO OFFICE YESTERDAY TO HAVE APPEAL PAPERS SIGNED AND I SIGNED THEM.
--- NOTE | 2022-01-17 15:24 | CON ---
Date of Consultation: 01/17/2022 Reason For Consultation: Short run of atrial fibrillation. History Of Present Illness: This is a 76-year-old female, who was admitted due to fever, cough and s putum production, diagnosed with pneumonia versus bronchitis. While in the hospital, she had a short run of atrial fibrillation, back to sinus rhythm. Denies having any chest pain. She has some short ness of breath. Past Medical History: Diabetes, hypertension, CVA, breast cancer, anemia. Medications: Refer to reconciliation sheet for detailed list. Allergies: CARBAMAZEPINE CONTRAST. Family History: No premature coronary artery disease or cancer. Social History: She does not smoke or drink. Does not use any drugs. Review of Systems: All systems reviewed and they were negative except what mentioned in HPI. Physical Examination: Vital Signs: Showed a temperature of 96.8, heart rate 71, breathing at 18, blood pressure is 114/56, saturating 98%. General: Pleasant elderly female, in no apparent distress. Head and Neck: Pupils are equal, reactive to light. Intact eye movements. No JVD. No cervical lym phadenopathy. Neck is supple. Thyroid is not enlarged. Lungs: Decreased breath sounds bilaterally. No rhonchi. No accessory muscle use or muscle retracti on. Heart: Irregular. No extra sounds. Abdomen: Soft, nontender. Bowel sounds positive. No organomegaly. No masses or hernia. No rigidi ty or rebound. Extremities: No clubbing or cyanosis. Intact pulses. Skin: No rash. Neurologic: Alert, awake, oriented x3. No acute focal deficits appreciated. Investigations: White blood cell count is 11.6, hemoglobin 12.8. BUN is 23, creatinine 1.7. Tropon in is negative. NT-proBNP is slightly elevated. Assessment And Recommendations: 1.Paroxysmal atrial fibrillation. Agree with Toprol-XL. At this point, her atrial fibrillation cou ld be a single episode just due to the pneumonia. I will continue metoprolol and the patient will ne ed a stroke prevention, so recommend Eliquis 5 mg twice a day along with the metoprolol. We will fernando ssess the patient post discharge with a line installer to reassess the need for more advanced antiar rhythmic medications. 2.Bronchitis versus pneumonia, on proper antibiotics and gradually improving. 3.Hypertension. Blood pressure is controlled. SR/MODL Voice ID: [id number] Report ID: [id number]
[2022-01-17] MEDS: NA CHLORIDE 0.9% 1,000 ML IV SCH (17:24)
[2022-01-17] MEDS: ATORVASTATIN 20 MG TAB PO SCH (21:36)
[2022-01-17] MEDS: DIPHENHYDRAMINE 25 MG TAB/CAP PO SCH (21:36)
[2022-01-17] MEDS: APIXABAN 5 MG TABLET PO SCH (21:36)
[2022-01-17] MEDS: ACETAMINOPHEN 500 MG TAB PO SCH (21:37)
[2022-01-17] MEDS: METOPROLOL XL 25 MG TAB PO SCH (21:37)
[2022-01-18] MEDS ORDERED: NITROGLYCERIN 0.4 MG/TAB SL ONE (00:44)
[2022-01-18] MEDS: METHYLPREDNISOLONE 125 MG INJ IV SCH ×2 (00:51→08:48)
[2022-01-18] MEDS: INSULIN -REGULAR HUMAN 50 UNIT/0.5 ML ML SQ SCH ×4 (00:53→12:09)
[2022-01-18] MEDS: GUAIFENESIN/DM 5 ML UCUP PO PRN ×2 (00:54→09:35)
[2022-01-18] MEDS: ONDANSETRON 4 MG/2 ML VIAL IV PRN (00:56)
[2022-01-18] MEDS: LEVALBUTEROL 0.63 MG/3 ML NEB NEB SCH ×3 (01:38→14:00)
[2022-01-18 02:22] LABS: CKMB Creatine Kinase MB 1.1 ng/mL (1.0-3.6); Troponin High Sensitivity 11.5 pg/mL (<58.9)
--- NOTE | 2022-01-18 07:53 | ECHO ---
HEIGHT: 5 ft 2 in WEIGHT: 209 lb 0 oz DATE OF STUDY: 01/17/[address]: Jesus Franco MD 2-DIMENSIONAL: YES M.MODE: YES DOPPLER: YES COLOR FLOW: YES TDS: PORTABLE: YES DEFINITY: BUBBLE STUDY: DIAGNOSIS: EDEMA, DYSPNEA CARDIAC HISTORY: CATHERIZATION: NO SURGERY: NO PROSTHETIC VALVE: NO PACEMAKER: NO MEASUREMENTS (cm) DIASTOLIC (NORMALS) SYSTOLIC (NORMALS) IVSd 1.1 (0.6-1.2) LA Diam 3.2 (1.9-4.0) LVEF 55-60% LVIDd 3.6 (3.5-5.7) LVIDs 1.9 (2.0-3.5) %FS 46% LVPWd 1.1 (0.6-1.2) Ao Diam 2.7 (2.0-3.7) 2 DIMENSIONAL ASSESSMENT: RIGHT ATRIUM: NORMAL LEFT ATRIUM: NORMAL RIGHT VENTRICLE: NORMAL LEFT VENTRICLE: NORMAL TRICUSPID VALVE: MILD TRICUSPID REGURGITATION MITRAL VALVE: MITRAL ANNULAR CALCIFICATION WITH MILD MITRAL REGURGITATION PULMONIC VALVE: NORMAL AORTIC VALVE: NORMAL PERICARDIAL EFFUSION: TRACE AORTIC ROOT: NORMAL LEFT VENTRICULAR WALL MOTION: NORMAL DOPPLER/COLOR FLOW: SEE BELOW COMMENTS: 1. NORMAL LEFT VENTRICULAR EJECTION FRACTION WITH NORMAL WALL MOTION 2. MODERATE DIASTOLIC DYSFUNCTION 3. MILD MITRAL REGURGITATION 4. MILD TRICUSPID REGURGITATION TECHNOLOGIST: RENARD DÍAZ
[2022-01-18] MEDS: METFORMIN ER 500 MG TAB PO SCH (08:48)
[2022-01-18] MEDS: APIXABAN 5 MG TABLET PO SCH (08:48)
[2022-01-18] MEDS: levoFLOXacin 500 MG TAB PO SCH (08:48)
[2022-01-18] MEDS: FLUOXETINE 20 MG CAP PO SCH (08:48)
[2022-01-18] MEDS: ASPIRIN EC 81 MG TAB PO SCH (08:48)
[2022-01-18] MEDS: PREGABALIN 150 MG CAP PO SCH (08:48)
[2022-01-18] MEDS: PANTOPRAZOLE 40MG TABLET PO SCH (08:48)
[2022-01-18] MEDS: AMLODIPINE 10 MG TAB PO SCH (08:48)
[2022-01-18] MEDS: LOSARTAN POTASSIUM 50 MG TABLET PO SCH (08:49)
[2022-01-18] MEDS: FLUTICASONE 50MCG NASAL SPRAY NAS SCH (08:53)
[2022-01-18] MEDS: ARFORMOTEROL TARTRATE 15 MCG/2 ML VIAL.NEB NEB SCH (09:28)
[2022-01-18 09:55] VITALS: O2SAT 96
[2022-01-18 10:07] LABS: Absolute Lymphocytes (CBC) 1.9 K/uL (0.7-4.9); Hematocrit 40.5 % (36.0-45.0); Lymphocytes % 13.7 % (15.3-44.8); MCV 89.6 fL (80-100); MPV 8.4 fL (7.6-11.3); RBC Red Blood Cell Count 4.52 M/uL (3.86-4.86)
[2022-01-18 10:30] LABS: CKMB Creatine Kinase MB 1.6 ng/mL (1.0-3.6); Potassium 4.4 mmol/L (3.5-5.1)
[2022-01-18 11:00] LABS: Blood Morphology Comment NOT SEEN (NOT SEEN); Platelet Estimate ADEQ
[2022-01-18 16:09] VITALS: BP 146/67; TEMP 97.9
--- NOTE | 2022-01-18 17:36 | EKG ---
Test Date: 2022-01-18 Test Time: 09:30:53 Sales Force Developer: GENEVIEVE MEASUREMENT RESULTS: Intervals: Rate: 54 WA: 148 QRSD: 80 QT: 428 QTc: 405 [place]: P: 84 WA: 148 QRS: 45 T: 55 INTERPRETIVE STATEMENTS: Sinus bradycardia with marked sinus arrhythmia Otherwise normal ECG Compared to ECG 01/18/2022 00:29:41 Sinus rhythm no longer present Atrial premature complex(es) no longer present Electronically Signed On 01-18-22 17:35:51 HEMMER CHAINSTITCH by Eliazar Bergeron
--- NOTE | 2022-01-18 17:37 | EKG ---
Test Date: 2022-01-18 Test Time: 00:29:41 Weight Yardage Checker: HB MEASUREMENT RESULTS: Intervals: Rate: 71 [place]: 148 QRSD: 84 QT: 410 QTc: 445 [place]: P: 88 [place]: 148 QRS: 40 T: 47 INTERPRETIVE STATEMENTS: Sinus rhythm with premature supraventricular complexes Otherwise normal ECG Compared to ECG 01/12/2022 13:35:48 Atrial premature complex(es) now present Electronically Signed On 01-18-22 17:36:35 LUMBER STACKER by Eliazar Bergeron
--- NOTE | 2022-01-18 21:57 | PN ---
Date of Progress Note: 01/18/2022 Subjective: Seen by bedside. She is doing clinically well. Heart rate has been controlled. Review of Systems: No chest pain, shortness of breath, orthopnea, cough, nausea, vomiting, or diarrhea. No abdominal pa in. No dysuria, polyuria, or urinary urgency. All other systems reviewed and they were negative. Physical Examination: Vital Signs: Reviewed. Head And Neck: Pupils are equal and reactive to light. Intact eye movements. No JVD. No cervical lymphadenopathy. Neck is supple. Thyroid is not enlarged. Lungs: Clear to auscultation bilaterally. No rhonchi, wheezing, or crackles. No accessory muscle u se. Heart: Regular rate and rhythm. No extra sounds. Abdomen: Soft, nontender. Bowel sounds positive. No organomegaly. No masses or hernias. No rigid ity or rebound. Extremities: No edema. No clubbing or cyanosis. Intact pulses. Skin: No rash noted. Neurologic: Alert, awake, and oriented x3. No acute focal deficits appreciated. Lymph Nodes: No cervical or axillary lymphadenopathy. Investigations: Labs were reviewed. Assessment And Recommendation: 1.Paroxysmal atrial fibrillation, now back in sinus. Continue metoprolol and Eliquis. 2.Pneumonia, appears to be doing clinically better. Continue current management. From Cardiology standpoint, patient can be released and follow up as an outpatient on chronic managem ent of her atrial fibrillation. SR/VIJAY Voice ID: [id number] Report ID: [id number]
== END 2022-01-18 17:38 | disposition home or self-care (01) | DRG 202 ==
LOC: ER 12:07 → ERHOLD 19:36 → 4TH 21:14 → OBSVTOIN 01-13 14:41
PROVIDERS: ADMIT Internal Medicine; ATTEND Internal Medicine
DX: J21.9 Acute bronchiolitis, unspecified (principal); E87.1 Hypo-osmolality and hyponatremia; I47.20 Ventricular tachycardia, unspecified; I48.0 Paroxysmal atrial fibrillation; I10 Essential (primary) hypertension; E11.42 Type 2 diabetes mellitus with diabetic polyneuropathy; K21.9 Gastro-esophageal reflux disease without esophagitis; E66.9 Obesity, unspecified; E83.42 Hypomagnesemia; D72.829 Elevated white blood cell count, unspecified; J20.9 Acute bronchitis, unspecified; R09.02 Hypoxemia; Z88.8 Allergy status to other drugs, medicaments and biological substances; Z79.4 Long term (current) use of insulin; Z85.3 Personal history of malignant neoplasm of breast; Z79.82 Long term (current) use of aspirin; Z68.38 Body mass index [BMI] 38.0-38.9, adult; Z79.84 Long term (current) use of oral hypoglycemic drugs; Z85.89 Personal history of malignant neoplasm of other organs and systems; Z86.73 Personal history of transient ischemic attack (TIA), and cerebral infarction without residual deficits; Z90.710 Acquired absence of both cervix and uterus; Z79.899 Other long term (current) drug therapy; Z87.891 Personal history of nicotine dependence; Z91.041 Radiographic dye allergy status; Z20.822 Contact with and (suspected) exposure to COVID-19
CPT/HCPCS: 0240U; 36415; 70486; 71045; 71250; 74176; 80048; 80076; 81003; 81015; 82550; 82553; 82947; 83605; 83735; 83880; 84484; 85025; 85610; 87040; 93005; 93306; 94760; 96361; 96365; 96366; 96375; 97116; 97161; 97165; 97530; 99285; G0378; J0456; J1650; J1815; J2270; J2405; J2930; J3475; J7030; J7040; J7050; J7605; J7613; J7614; J7644

== ENCOUNTER 2022-02-10 02:44 | Inpatient (IN) | payer OTHER ==
--- OUTSIDE RECORDS SUMMARY | 2022-02-10 03:03 | XMS REPORT | Continuity of Care Document ---
:1945 Author Organization [facility] t Address [address] [place] [address] [address]. [address] [place] [address] Care Team Providers Name Role Phone Jesus Franco Attending Clinician Unavailable Shivani Anguiano Attending Clinician Unavailable Michael_Filiberto Attending Clinician Unavailable Michael Admitting Clinician Unavailable Payers Payer Name Policy Type Policy Number Effective Date Expiration Date S sha [place] [address] [id number] Common [facility] Spirit - C [facility] [id number] HEALTHCARE Problems Condition Condition Condition Status Onset Resolution Last Treating Co mments Source Name Details Category Date Date Treatment Clinician Date 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 Polycythem -13 [facility] 00:00: Practic 00 e Administra Administra Problem Active 2020-02 [facility] tion of tion of 1-09 Family influenza Influenza 00:00: Prac tic vaccine Vaccine 00 e 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 5-10 Family mellitus Mellitus 00:00: Practi c 00 e History of History of Problem Active [place] SARS-CoV-2 SARS-CoV-2 5-10 [facility] 00:00: Practic 00 e Neuropathy Neuropathy Problem Active [place] [facility] due to Due to 29 Family type 2 Type 2 00:00: Practic diabetes Diabetes 00 e mellitus Mellitus Gastroesop Gastroesop Problem Active 2018-02 [place] hageal hageal 2-30 Family reflux Reflux 00:00: Practic disease Disease 00 e without without esophagiti Esophagiti s s Psoriasis Psoriasis Problem Active Riak francisco javier 9-04 Family 00:00: Practic 00 e Ulcer of Ulcer of Problem Active Danilo ge foot Foot 3-13 Family 00:00: Practic 00 e Senile Senile Problem Active 2017-02 [facility] osteoporos Osteoporos 2-13 Trey hernandez is is 00:00: Practic 00 e Neuropathy [...] 00 e Chronic Chronic Problem Active 2016-02 [facility]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 00:00: Pr actic disorder, Disorder, 00 e single Single episode Episode Chronic Chronic Problem Active 2016-02 [facility] pain Pain 2-14 Family 00:00: Practic 00 e Essential Essential Problem Active 2016-02 Rika francisco javier hypertensi Hypertensi 2-14 Trey hernandez on on 00:00: Practic 00 e Chronic Chronic Problem Active 2016-02 [facility] obstructiv Obstructiv 2-14 Trey hernandez e lung e Lung 00:00: Practic disease Disease 00 e [id number] Boil Problem [facility] [id number] Dysuria Problem [facility] [id number] Menopausal Problem Com [facility] vaginal [facility] Allergies, Adverse Reactions, Alerts Allergy Allergy Status Severity Reaction(s) Onset Inactive Treating Comm ents Source Name Type Date Date Clinician Iodine Allergy Active [facility] to Family substan Practic e e Tegretol Allergy Active [facility] to Family substan Practic e e 463 Drug Active nausea,diff Commo n allergy breathing [facility] carbamaz carbamaz Active hives Common epine epine [facility] Social History Social Habit Start Date Stop Date Quantity Comments Source Sex Assigned At Com [facility] History of Tobacco Use Co mmon [facility] Smoking Status Start Date Stop Date Source Never Smoker [facility] Medications Ordered Filled Start Stop Current Ordering Indication Dosage Frequency Signature Comments Components Source Medication Medication Date Date Medication? Clinician (SIG) Name Name Bupivicaine Bupivicaine 2021-0 No 5mg [facility] [place] 8-22 [facility] 00:00: - [facility] Gudelia Galeas 2021-0 No 40mg Common (Triamcinol (Triamcinol 8-22 S pirit one) one) 00:00: [facility] Bupivicaine Bupivicaine 2021-0 No 5mg [facility] [place] 8-22 Spirit 00:00: - [facility] Gudelia Cantualog 2021-0 No 40mg Common (Triamcinol (Triamcinol 8-22 S pirit one) one) 00:00: [facility] Bupivicaine Bupivicaine 2021-0 No 5mg [facility] [place] 8-22 Spirit 00:00: - [facility] Gudelia Galeas 0 No 40mg Common (Triamcinol (Triamcinol 8-22 S pirit one) one) 00:00: - [facility] acetaminoph acetaminoph No 2capsul Q6H [...] needed. Adult Adult No 1 Q1D Adult [facility] Aspirin Aspirin Aspirin Family Regimen 81 [...] morning. amlodipine amlodipine No 1 Q1D amlodipine [facility] 5 mg tablet 5 mg tablet 5 mg F amily Take 1 Take 1 tablet Practic tablet tablet Take 1 e every day every day tablet by oral by oral every day route in route in by oral the the route in morning. morning. the morning. atorvastati atorvastati No atorvastat [facility] n 20 mg n 20 mg [...] No 1needle Q1D Comfort EZ [place] Pen [place] Pen [place] (s) Pen F amily 32 gauge x 32 gauge x [place] 32 Practic 06/25" Take 06/25" Take gauge x e 1 needle 1 needle 06/25" Take every day every day 1 needle by miscell. by miscell. every day route as route as by directed. directed. miscell. route as directed. diphenhydra diphenhydra No 1capsul Q8H diphenhydr [facility] mine 25 mg mine 25 mg e(s) amine 25 Family capsule capsule mg capsule Pra ctic Take 1 Take 1 Take 1 e capsule capsule capsule every 8 every 8 every 8 hours by hours by hours by oral route oral route oral route as as as directed. directed. directed. fluoxetine fluoxetine No 1capsul Q1D fluoxetine [facility] 40 mg 40 mg e(s) 40 mg Family capsule capsule capsule Practi c Take 1 Take 1 Take 1 e capsule capsule capsule every day every day every day by oral by oral by oral route at route at route at bedtime. bedtime. bedtime. ipratropium ipratropium No 2.5mL Q6H ipratropiu [facility] bromide bromide m bromide Fami ly [...] MG 100 MG Docusate Docusate No Docusate Sodium-Everly Sodium-Everly Sodium-Herman nthranol nthranol anthranol Aspirin 81 Aspirin [...] SoloStar SoloStar SoloStar Docusate Docusate No Docusate Sodium-Everly Sodium-Everly Sodium-Herman nthranol nthranol anthranol Lyrica Lyrica No [...] MG 100 MG Docusate Docusate No Docusate Sodium-Everly Sodium-Everly Sodium-Herman nthranol nthranol anthranol Aspirin 81 Aspirin [...] Name influenza, high-dose, influenza, high-dose, 2020-12-19 Completed [facility] quadrivalent quadrivalent 12:00:38 Practice Non-US Vaccine Non-US Vaccine 2020-09-06 Completed [facility] e Family COVID-19 PS COVID-19 PS 00:00:00 Practice (EpiVacCorona) (EpiVacCorona) COVID-19, mRNA, COVID-19, mRNA, 2020-08-10 Completed [facility] Family LNP-S, PF, 100 LNP-S, PF, 100 00:00:00 Practi ce mcg/0.5 mL dose mcg/0.5 mL dose (Moderna) (Moderna) pneumococcal pneumococcal 2018-02-10 Completed [facility] mary polysaccharide PPV23 polysaccharide PPV23 00:00:00 Practice influenza, influenza, 2018-02-10 Completed [facility] injectable, injectable, 00:00:00 Practice quadrivalent quadrivalent Vital Signs Vital Name Observation Time Observation Value Comments Source height 2021-11-12 13:15:00 62 [in_i] [facility] weight 2021-11-12 13:15:00 205.4 [lb_av] Common [facility] temperature 2021-11-12 13:15:00 97.3 [degF] [facility] bmi 2021-11-12 13:15:00 37.56 kg/m2 [facility] blood pressure 2021-11-12 13:15:00 146 mm[Hg] [facility] - systolic [facility] blood pressure 2021-11-12 13:15:00 86 mm[Hg] [facility] - diastolic [facility] height 2021-10-01 13:30:00 62 [in_i] Common S [facility] weight 2021-10-01 13:30:00 198.5 [lb_av] [facility] - [facility] temperature 2021-10-01 13:30:00 97.3 [degF] Common S pirit [facility] bmi 2021-10-01 13:30:00 36.3 kg/m2 [facility] blood pressure 2021-10-01 13:30:00 128 mm[Hg] [facility] - systolic [facility] blood pressure 2021-10-01 13:30:00 74 mm[Hg] [facility] - diastolic [facility] BP Diastolic 2021-03-21 00:00:00 76 mm[Hg] [facility] Height 2021-03-21 00:00:00 62 [in_i] [facility] BMI (Body Mass Index) 2021-03-21 00:00:00 35.7 kg/m2 [facility] BP Systolic 2021-03-21 00:00:00 140 mm[Hg] [facility] Body Weight 2021-03-21 00:00:00 195 [lb_av] [facility] BP Diastolic 2020-12-19 00:00:00 77 mm[Hg] [facility] Height 2020-12-19 00:00:00 62 [in_i] [facility] BMI (Body Mass Index) 2020-12-19 00:00:00 36.1 kg/m2 [facility] BP Systolic 2020-12-19 00:00:00 135 mm[Hg] [facility] Body Weight 2020-12-19 00:00:00 197.4 [lb_av] [facility] BP Diastolic 2020-09-22 00:00:00 57 mm[Hg] [facility] Height 2020-09-22 00:00:00 62 [in_i] [facility] BMI (Body Mass Index) 2020-09-22 00:00:00 36.2 kg/m2 [facility] Practice BP Systolic 2020-09-22 00:00:00 124 mm[Hg] [facility] Practice Body Weight 2020-09-22 00:00:00 198 [lb_av] [facility] Practice BP Diastolic 2020-09-11 00:00:00 79 mm[Hg] [facility] Practice Height 2020-09-11 00:00:00 62 [in_i] [facility] Practice BMI (Body Mass Index) 2020-09-11 00:00:00 35.8 kg/m2 [facility] Practice BP Systolic 2020-09-11 00:00:00 141 mm[Hg] [facility] Practice Body Weight 2020-09-11 00:00:00 196 [lb_av] [facility] Practice BP Diastolic 2020-06-19 00:00:00 80 mm[Hg] [facility] Practice Height 2020-06-19 00:00:00 62 [in_i] [facility] Practice BMI (Body Mass Index) 2020-06-19 00:00:00 35.8 kg/m2 [facility] Practice BP Systolic 2020-06-19 00:00:00 134 mm[Hg] [facility] Practice Body Weight 2020-06-19 00:00:00 196 [lb_av] [facility] Practice BP Diastolic 2019-11-09 00:00:00 64 mm[Hg] [facility] Practice Height 2019-11-09 00:00:00 62 [in_i] [facility] Practice BMI (Body Mass Index) 2019-11-09 00:00:00 35.6 kg/m2 [facility] Practice BP Systolic 2019-11-09 00:00:00 154 mm[Hg] [facility] Practice Body Weight 2019-11-09 00:00:00 194.6 [lb_av] [facility] Practice Procedures Procedure Date / Time Performing Clinician Source Performed Removal of Gallbladder 2019-07-12 00:00:00 [facility] Laparoscopic 2019-04-30 00:00:00 [facility] Fany rodriguez Cholecystectomy Practice Colonoscopy [facility] Procedure on Kidney [facility] Fany ly Practice Procedure on Bladder [facility] vidhi Practice Operation on Cervix [facility] michael Practice Breast Surgery [facility] Hysterectomy (Total) [facility] Practice Plan of Care Planned Activity Planned [...] Clinicians Facility Department ID 2021-10-01 Outpatient Salvador, [facility] [id number] Common 13:17:00 Jesus [facility] 2021-09-18 Outpatient Annmarie [facility] [id number] Common 14:32:00 Mouin [address] [facility] 2021-11-12 2021-11-12 OFFICE [facility] [id number] Co mmon 00:00:00 00:00:00 VISIT Spirit ESTAB [facility] LEVEL [address] [place] [address] 2021-10-01 2021-10-01 OFFICE [facility] [id number] Co mmon 00:00:00 00:00:00 VISIT PRANAV Harp PT LEVEL 4 [facility] 2021-03-23 2021-03-23 Outpatient Daniel_T VFP VFP [id number] 10-30 [facility] 10:25:00 10:25:00 [id number] Family Practic e 2021-03-21 2021-03-21 Yuri Keshawnel_T VFP [place] - [id number] Village 00:00:00 00:00:00 [facility] [id number] Ramsey Chaudhry - Marcus vera MD: [id number] DUANE_KELVIN_Nestor e [place] [address] [facility], [address], [place] [address] , Ph. 2021-03-14 2021-03-14 Outpatient Daniel_T VFP VFP [id number] [facility] 03:48:00 03:48:00 [id number] Family Practic e 2020-12-22 2020-12-22 Outpatient Daniel_T VFP VFP [id number] [facility] 01:15:00 01:15:00 [id number] Family Practic e 2020-12-21 2020-12-21 Outpatient Daniel_T VFP VFP [id number] 10-30 [facility] 10:26:00 10:26:00 [id number] Family Practic e 2020-12-19 2020-12-19 Yuri Michael_T VFP [place] - [id number] 0 [facility] 00:00:00 00:00:00 [facility] [id number] Family [facility] Practi c MD: [id number] Angie curry [address], [place] [address] , Ph. 2020-12-12 2020-12-12 Outpatient Daniel_T VFP VFP [id number] [facility] 11:08:00 11:08:00 [id number] Family Practic e 2020-09-26 2020-09-26 Outpatient Daniel_T VFP VFP [id number] [facility] 05:04:00 05:04:00 [id number] Family Practic e 2020-09-22 2020-09-22 Yuri Michael_T VFP [place] - [id number] 0 [facility] 00:00:00 00:00:00 [facility] [id number] [facility] Practi c MD: [id number] Angie curry [address], [place] [address] , Ph. 2020-09-14 2020-09-14 Outpatient Daniel_T VFP VFP [id number] [facility] 03:01:00 03:01:00 [id number] Family Practic e 2020-09-11 2020-09-11 Yuri Michael_T VFP [place] - [id number] [facility] 00:00:00 00:00:00 [facility] [id number] Family RodriguezRamsey - Pracpolina vera MD: [id number] Angie curry [address], [facility] [address], [place] [address] , Ph. 2020-07-28 2020-07-28 Outpatient Daniel_T VFP VFP [id number] [facility] 01:29:00 01:29:00 [id number] Family Practic e 2020-06-21 2020-06-21 Outpatient Daniel_T VFP VFP [id number] 20 [facility] 06:47:00 06:47:00 [id number] Family Practic e 2020-06-19 2020-06-19 Yurinathan Rodriguez_T VFP [place] - [id number] 0 [facility] 00:00:00 00:00:00 [facility] [id number] [facility] - Practi c MD: [id number] DUANE_KELVIN_Nestor curry Shadow [facility], [facility] [address], [place] [address] , Ph. 2020-03-20 2020-03-20 Outpatient Daniel_T VFP VFP [id number] 20 [facility] 09:49:00 09:49:00 Family Practic e 2019-11-12 2019-11-12 Outpatient Daniel_T VFP VFP [id number] [facility] 06:54:00 06:54:00 Family Practic e 2019-11-09 2019-11-09 Yuri Rodriguez_T VFP [place] - [id number] 0 [facility] 00:00:00 00:00:00 [facility] [id number] [facility] - Practi jody MD: [id number] Иван curry [address] [facility] [address], [place] [address] , Ph. 2019-10-27 2019-10-27 Outpatient Daniel_T VFP VFP [id number] 20 [facility] 10:48:00 10:48:00 [id number] Family Practic e Results Test Description Test Time Test Comments Results Result Comments Source Hemoglobin A1c measurement device panel 2021-03-21 10:07:47 Test Item Value Reference Range Interpretation Comme nts Hemoglobin A1C Fingerstick: (test code = Hemoglobin A1C Fingerstick :) 6.9 [facility] PracticeGlucose [Mass/volume] in Capillary [id number] 10:04:25 Test Item Value Reference Range Interpretation Comments Blood Glucose: mg/dl (test code = Blood 112 Glucose: mg/dl) [facility] PracticeHemoglobin A1c measurement device [id number] 11:02:48 Test Item Value Reference Range Interpretation Comments Hemoglobin A1C Fingerstick: (test code 7.2 = Hemoglobin A1C Fingerstick:) [facility] Cap[facility] [id number] 10:55:53 Test Item Value Reference Range Interpretation Comments Blood Glucose: mg/dl (test code = Blood 247 Glucose: mg/dl) [facility]
[2022-02-10] MEDS ORDERED: CEFTRIAXONE 1000 MG/VIAL ONE (03:10)
[2022-02-10] MEDS ORDERED: METHYLPREDNISOLONE 125 MG INJ ONE (03:10)
[2022-02-10] MEDS ORDERED: ALBUTEROL 2.5 MG/3 ML NEB SOL ONE (03:10)
[2022-02-10] MEDS ORDERED: NA CHLORIDE 0.9% 1,000 ML ONE (03:11)
[2022-02-10] MEDS ORDERED: AZITHROMYCIN 500 MG INJ IVPB ONE (03:11)
[2022-02-10] MEDS ORDERED: NA CHLORIDE 0.9% 250 ML ONE ×3 (03:11→10:30)
--- NOTE | 2022-02-10 04:41 | EDPHYS ---
Physician Documentation [facility] Name: Kiley Ortega Age: 76 yrs Sex: Female : 1945 Arrival Date: 02/10/2022 Time: 02:52 Bed 13 Private MD: ASHLEY Physician Eze Aguilera HPI: 02/10 04:31 This 76 yrs old Female presents to ER via EMS with complaints of copd, fever, ivan cough, hypoxia. 04:31 The patient has shortness of breath at rest, with light activity. Onset: The ivan symptoms/episode began/occurred 3 day(s) ago. Duration: The symptoms are continuous, and are steadily getting worse. The patient's shortness of breath is aggravated by coughing, supine position. The patient or guardian reports airway noise, cough, described as moderate. Modifying factors: The symptoms are alleviated by elevating head, remaining still, rest, the symptoms are aggravated by activity, lying flat, talking. Associated signs and symptoms: Pertinent positives: non-productive cough, fever. Severity of symptoms: At their worst the symptoms were moderate in the emergency department the symptoms are unchanged. Historical: - Allergies: 02:56 Iodinated Contrast Media - IV Dye; aa9 02:56 Tegretol; aa9 02:56 trelegy; aa9 - Home Meds: 02:56 metformin 500 mg Oral tab 2 tabs 2 times per day for Type 2 Diabetes Mellitus [Active]; aa9 amlodipine 10 mg tab for Hypertension [Active]; aspirin 81 mg Oral TbEC 1 tab once daily [Active]; atorvastatin 20 mg Oral tab 1 tab once daily [Active]; Benadryl 25 mg Oral cap 1 cap twice a day [Active]; fluxetine 40 mg once daily [Active]; Glimepiride Oral [Active]; omeprazole 40 mg Oral cpDR 1 cap once daily for Gastroesophageal reflux [Active]; Lyrica 300mg Oral 1 cap 2 times per day for Diabetic Peripheral Neuropathy [Active]; Insulin: Humalog Sub-Q [Active]; Januvia Oral [Active]; losartan 100 mg Oral tab 1 tab once daily for Hypertension [Active]; - PMHx: 02:56 breast cancer-right side; TIA; Hypertension; Diabetes - NIDDM; COPD; Kidney stone; aa9 cervical cancer; neuropathy; Myopathy; - PSHx: 02:56 Total abdominal hysterectomy; aa9 - Immunization history:: Client reports receiving the 2nd dose of the Covid vaccine. - Family history:: not pertinent. - Social history:: Smoking status: Patient denies any tobacco usage or history of. ROS: 04:31 Constitutional: Negative for fever, chills, and weight loss, Eyes: Negative for injury, ivan pain, redness, and discharge, ENT: Negative for injury, pain, and discharge, Neck: Negative for injury, pain, and swelling, Cardiovascular: Negative for chest pain, palpitations, and edema, Abdomen/GI: Negative for abdominal pain, nausea, vomiting, diarrhea, and constipation, Back: Negative for injury and pain, : Negative for injury, bleeding, discharge, and swelling, MS/Extremity: Negative for injury and deformity, Skin: Negative for injury, rash, and discoloration, Neuro: Negative for headache, weakness, numbness, tingling, and seizure, Psych: Negative for depression, anxiety, suicide ideation, homicidal ideation, and hallucinations, Allergy/Immunology: Negative for hives, rash, and allergies, Endocrine: Negative for neck swelling, polydipsia, polyuria, polyphagia, and marked weight changes, Hematologic/Lymphatic: Negative for swollen nodes, abnormal bleeding, and unusual bruising. 04:31 Respiratory: Positive for cough, "sounds productive", dyspnea on exertion, shortness of breath, at rest. Exam: 04:31 Constitutional: This is a well developed, well nourished patient who is awake, alert, ivan and in no acute distress. Head/Face: Normocephalic, atraumatic. Eyes: Pupils equal round and reactive to light, extra-ocular motions intact. Lids and lashes normal. Conjunctiva and sclera are non-icteric and not injected. Cornea within normal limits. Periorbital areas with no swelling, redness, or edema. ENT: Nares patent. No nasal discharge, no septal abnormalities noted. Tympanic membranes are normal and external auditory canals are clear. Oropharynx with no redness, swelling, or masses, exudates, or evidence of obstruction, uvula midline. Mucous membranes moist. Neck: Trachea midline, no thyromegaly or masses palpated, and no cervical lymphadenopathy. Supple, full range of motion without nuchal rigidity, or vertebral point tenderness. No Meningismus. Chest/axilla: Normal chest wall appearance and motion. Nontender with no deformity. No lesions are appreciated. Cardiovascular: Regular rate and rhythm with a normal S1 and S2. No gallops, murmurs, or rubs. Normal PMI, no JVD. No pulse deficits. Abdomen/GI: Soft, non-tender, with normal bowel sounds. No distension or tympany. No guarding or rebound. No evidence of tenderness throughout. Back: No spinal tenderness. No costovertebral tenderness. Full range of motion. Female : Normal external genitalia. Skin: Warm, dry with normal turgor. Normal color with no rashes, no lesions, and no evidence of cellulitis. MS/ Extremity: Pulses equal, no cyanosis. Neurovascular intact. Full, normal range of motion. Neuro: Awake and alert, GCS 15, oriented to person, place, time, and situation. Cranial nerves II-XII grossly intact. Motor strength 5/5 in all extremities. Sensory grossly intact. Cerebellar exam normal. Normal gait. Psych: Awake, alert, with orientation to person, place and time. Behavior, mood, and affect are within normal limits. 04:31 Respiratory: mild respiratory distress is noted, moderate respiratory distress is noted, Respirations: labored breathing, that is mild, Breath sounds: decreased breath sounds, that are moderate, are located in both bases, rhonchi, that are mild, are scattered, stridor, is not appreciated, + upper airway congestion. wheezing: expiratory is scattered, Respiratory rate: 20 Vital Signs: 02:53 BP 161 / 63; Pulse 90; Resp 20 S; Temp 98.2(O); Pulse Ox 98% on R/A; Weight 89.81 kg aa9 (R); Height 5 ft. 2 in. (157.48 cm) (R); Pain 9/10; 04:00 BP 153 / 64; Pulse 95; Resp 17 S; Pulse Ox 96% on 2 lpm NC; aa9 07:30 BP 136 / 63; Pulse 92; Resp 17; Pulse Ox 93% on 2 lpm NC; Pain 10/10; kc6 02:53 Body Mass Index 36.21 (89.81 kg, 157.48 cm) aa9 MDM: 02:57 Patient medically screened. ivan 04:35 Differential diagnosis: asthma, Bronchitis CHF exacerbation, Chronic Obstructive ivan Pulmonary Disease obstructed airway, bronchitis, flu, URI, Myocardial Infarction pneumonia, pulmonary edema, Pulmonary Embolism reactive airway disease, Sepsis. Antibiotic administration: Rocephin and Zithromax given. The patient's Wells Deep Vein Thrombosis Score was calculated as follows: Total Score: 0-2 Pts- Low Risk. Differential Diagnosis: Bronchitis Influenza Upper Respiratory Infection Sinusitis Pharyngitis Asthma Exacerbation Viral Syndrome Pneumonia. The patient's pulmonary embolism risk score was calculated as follows: Total Score: 0-2 points. This patient was found to be at low risk for a pulmonary embolism by using the Well's assessment criteria. Immunization status: Pneumococcal vaccine: Influenza vaccine: Data reviewed: vital signs, nurses notes, lab test result(s), EKG, radiologic studies, plain films. Data interpreted: phototypesetting equipment monitor: rate is 90 beats/min, rhythm is regular, Pulse oximetry: on room air is 90 %. Test interpretation: by ED physician or midlevel provider: ECG, plain radiologic studies. Counseling: I had a detailed discussion with the patient and/or guardian regarding: the historical points, exam findings, and any diagnostic results supporting the discharge/admit diagnosis, lab results, radiology results, the need for further work-up and treatment in the hospital. 02/10 02:56 Order name: Basic Metabolic Panel [facility] 02/10 02:56 Order name: CBC with Diff [facility] 02/10 02:56 Order name: LFT's [facility] 02/10 02:56 Order name: Magnesium [facility] 02/10 02:56 Order name: NT PRO-BNP [facility] 02/10 02:56 Order name: PT-INR [facility] 02/10 02:56 Order name: Troponin HS [facility] 02/10 02:56 Order name: Blood Culture Adult (2) [facility] 02/10 02:56 Order name: Lactate w/ 2H reflex if indic. [facility] 02/10 02:56 Order name: COVID-19/FLU A+B [facility] 02/10 09:02 Order name: Glucose, Ancillary Testing [facility] 02/10 10:20 Order name: Lactate Sepsis 2 HR Follow-up [facility] 02/10 10:49 Order name: Glucose, Ancillary Testing [facility] 02/10 11:30 Order name: Procalcitonin [facility] 02/10 02:56 Order name: XRAY Chest (1 view) [facility] 02/10 02:56 Order name: EKG; Complete Time: 02:57 [facility] 02/10 02:56 Order name: Cardiac monitoring; Complete Time: 03:19 [facility] 02/10 02:56 Order name: EKG - Nurse/Tech; Complete Time: 07:04 [facility] 02/10 02:56 Order name: IV Saline Lock; Complete Time: 07:04 [facility] 02/10 02:56 Order name: Labs collected and sent; Complete Time: 07:04 [facility] 02/10 02:56 Order name: O2 Per Protocol; Complete Time: 03:19 [facility] 02/10 02:59 Order name: CT Traumagram (Head C Spine CAP wo con) [facility] 02/10 12:31 Order name: Glucose, Ancillary Testing [facility] 02/10 02:56 Order name: O2 Sat Monitoring; Complete Time: 03:19 [facility] 02/10 04:39 Order name: IV Saline Lock - Large Bore; Complete Time: 07:04 [facility] Administered Medications: 04:35 Drug: Albuterol - atroVENT (ipratropium) (3:1) (2.5 mg - 0.5 mg) 3 ml Route: Nebulizer; aa9 07:17 Follow up: Response: No adverse reaction aa9 05:30 Drug: NS 0.9% 1000 ml Route: IV; Rate: 125 ml/hr; Site: PICC; aa9 07:17 Follow up: Response: No adverse reaction; IV Status: Infusion continued upon admission; aa9 IV Intake: 200ml 05:30 Drug: Rocephin (cefTRIAXone) 1 grams Route: IV; Rate: per protocol; Site: PICC; aa9 06:48 Follow up: Response: No adverse reaction; IV Status: Completed infusion; IV Intake: [id number] 05:30 Drug: Zithromax (azithromycin) 500 mg Route: IVPB; Infused Over: 1 hrs; Site: PICC; aa9 06:48 Follow up: Response: No adverse reaction; IV Status: Completed infusion; IV Intake: aa9 250ml 06:16 Not Given (Patient Refused): Albuterol 2.5 mg Inhalation once aa9 06:34 Drug: SOLU-Medrol (methylPrednisoLONE) 125 mg Route: IVP; Site: PICC; aa9 07:17 Follow up: Response: No adverse reaction aa9 06:48 Drug: vancoMYCIN 1 grams Route: IVPB; Infused Over: 2 hrs; Site: PICC; aa9 09:12 Follow up: Response: No adverse reaction; IV Status: Completed infusion kc6 Disposition Summary: 02/10/22 04:41 Hospitalization Ordered Hospitalization Status: Inpatient Admission ivan Provider: Augustin Moss cha Condition: Fair ivan Problem: new ivan Symptoms: have improved ivan Bed/Room Type: Standard ivan Location: Telemetry/MedSurg (Inpatient)(02/10/22 12:50) eb Room Assignment: 408(02/10/22 12:50) eb Diagnosis - COPD/ Chronic obstructive pulmonary disease with (acute) exacerbation ivan - Hypoxemia ivan - Pneumonia due to other specified bacteria - bilateral multilobar infectious ivan process, right greate than left - Cough ivan Forms: - Medication Reconciliation Form ivan - SBAR form ivan Signatures: Dispatcher [employer] EDMS Jerri Mejia RN RN Eze Valdez MD MD cha Botello, Elizabeth eb Avalos, Aylin, RN RN Loretta Jha RN kc6 Corrections: (The following items were deleted from the chart) 05:43 04:41 Telemetry/MedSurg (Inpatient) ivan mw 05:43 04:41 ivan mw 12:50 05:43 [facility] ER HOLD mw eb 12:50 05:43 ERHOLD- mw eb
--- NOTE | 2022-02-10 04:41 | ER ---
Nurse's Notes [facility] Name: Kiley Ortega Age: 76 yrs Sex: Female : 1945 Arrival Date: 02/10/2022 Time: 02:52 Bed 13 Private MD: Diagnosis: COPD/ Chronic obstructive pulmonary disease with (acute) exacerbation;Hypoxemia;Pneumonia due to other specified bacteria-bilateral multilobar infectious process, right greate than left;Cough Presentation: 02/10 02:53 Chief complaint: EMS states: patient has been having difficulty breathing since this aa9 morning, she waas dx with pneumonia, she fell and c/o back pain, she uses O2 at home, provided duo neb en route. Coronavirus screen: Vaccine status: Patient reports receiving the 2nd dose of the covid vaccine. Ebola Screen: No symptoms or risks identified at this time. Initial Sepsis Screen: Does the patient meet any 2 criteria? RR > 20 per min. No. Patient's initial sepsis screen is negative. Does the patient have a suspected source of infection? No. Patient's initial sepsis screen is negative. Risk Assessment: Do you want to hurt yourself or someone else? Patient reports no desire to harm self or others. Onset of symptoms was February 10, 2022. 02:53 Method Of Arrival: EMS: [facility] aa9 02:53 Acuity: SHELLEY 3 aa9 02:58 Care prior to arrival: Medication(s) given: Atrovent Neb x 1. Mechanism of Injury: Fall aa9 from standing position. Triage Assessment: 02:57 General: Appears uncomfortable, obese, Behavior is cooperative, appropriate for age, aa9 anxious. Pain: Complains of pain in back Aggravated by increased activity, Noted to be moaning. Neuro: Level of Consciousness is awake, alert, obeys commands, Oriented to person, place, time, situation. Respiratory: Airway is patent Respiratory effort is even, labored. GI: No signs and/or symptoms were reported involving the gastrointestinal system. : No signs and/or symptoms were reported regarding the genitourinary system. Derm: No signs and/or symptoms reported regarding the dermatologic system. Musculoskeletal: Reports pain in back. Historical: - Allergies: 02:56 Iodinated Contrast Media - IV Dye; aa 02:56 Tegretol; aa9 02:56 trelegy; aa9 - Home Meds: 02:56 metformin 500 mg Oral tab 2 tabs 2 times per day for Type 2 Diabetes Mellitus [Active]; aa9 amlodipine 10 mg tab for Hypertension [Active]; aspirin 81 mg Oral TbEC 1 tab once daily [Active]; atorvastatin 20 mg Oral tab 1 tab once daily [Active]; Benadryl 25 mg Oral cap 1 cap twice a day [Active]; fluxetine 40 mg once daily [Active]; Glimepiride Oral [Active]; omeprazole 40 mg Oral cpDR 1 cap once daily for Gastroesophageal reflux [Active]; Lyrica 300mg Oral 1 cap 2 times per day for Diabetic Peripheral Neuropathy [Active]; Insulin: Humalog Sub-Q [Active]; Januvia Oral [Active]; losartan 100 mg Oral tab 1 tab once daily for Hypertension [Active]; - PMHx: 02:56 breast cancer-right side; TIA; Hypertension; Diabetes - NIDDM; COPD; Kidney stone; aa9 cervical cancer; neuropathy; Myopathy; - PSHx: 02:56 Total abdominal hysterectomy; aa9 - Immunization history:: Client reports receiving the 2nd dose of the Covid vaccine. - Family history:: not pertinent. - Social history:: Smoking status: Patient denies any tobacco usage or history of. Screenin:22 Abuse screen: Denies threats or abuse. Denies injuries from another. Nutritional aa9 screening: No deficits noted. Tuberculosis screening: No symptoms or risk factors identified. 07:15 [facility] ED Fall Risk Assessment (Adult) History of falling in the last 3 months, aa9 including since admission Yes- single mechanical fall (1 pt) Confusion or Disorientation No (0 pts) Intoxicated or Sedated No (0 pts) Impaired Gait Yes (1 pt) Mobility Assist Device Used Yes (1 pt) Altered Elimination Yes (1 pt) Score/Fall Risk Level 3 or more points = High Risk Oriented to surroundings, Maintained a safe environment. Assessment: 04:18 General: Appears uncomfortable, ill, Behavior is cooperative, anxious. Pain: Complains aa9 of pain in back. Neuro: Level of Consciousness is awake, alert, obeys commands. Respiratory: Airway is patent Respiratory effort is even, labored, Parent/caregiver reports the patient having shortness of breath pain with respiration. 05:30 Reassessment: Patient appears in no apparent distress at this time. Patient and/or aa9 family updated on plan of care and expected duration. Pain level reassessed. Patient is alert, oriented x 3, equal unlabored respirations, skin warm/dry/pink. 05:30 Respiratory: Airway is patent Respiratory effort is even, labored. aa9 07:00 General: Appears in no apparent distress. uncomfortable, Behavior is calm, cooperative, kc6 appropriate for age. Pain: Complains of pain in back Pain does not radiate. Pain currently is 10 out of 10 on a pain scale. Quality of pain is described as sharp, Pain began suddenly, Is continuous, Alleviated by nothing. Aggravated by increased activity, repositioning, Noted to be resistant to movement, Also complains of no other associated symptoms. Neuro: Osorio Agitation-Sedation Scale (RASS): 0 - Alert and Calm Level of Consciousness is awake, alert, obeys commands, Oriented to person, place, time, situation, Appropriate for age. Cardiovascular: Heart tones S1 S2 present Capillary refill < 3 seconds. Respiratory: Airway is patent Trachea midline Respiratory effort is even, labored, Respiratory pattern is regular, symmetrical, Breath sounds are clear bilaterally. Parent/caregiver reports the patient having shortness of breath at rest on exertion. GI: No signs and/or symptoms were reported involving the gastrointestinal system. : No signs and/or symptoms were reported regarding the genitourinary system. EENT: No signs and/or symptoms were reported regarding the EENT system. Derm: No signs and/or symptoms reported regarding the dermatologic system. Skin is intact, Skin is pink, warm \T\ dry. Musculoskeletal: No signs and/or symptoms reported regarding the musculoskeletal system. Circulation, motion, and sensation intact. Capillary refill < 3 seconds, Range of motion: intact in all extremities. 08:00 Reassessment: Patient appears in no apparent distress at this time. No changes from kc6 previously documented assessment. Patient and/or family updated on plan of care and expected duration. Pain level reassessed. Patient is alert, oriented x 3, equal unlabored respirations, skin warm/dry/pink. 09:00 Reassessment: please see [facility] for further charting. kc6 12:57 Reassessment: attempted to call report to 4th floor. stated the nurse will call me back.kc6 Vital Signs: 02:53 BP 161 / 63; Pulse 90; Resp 20 S; Temp 98.2(O); Pulse Ox 98% on R/A; Weight 89.81 kg aa9 (R); Height 5 ft. 2 in. (157.48 cm) (R); Pain 9/10; 04:00 BP 153 / 64; Pulse 95; Resp 17 S; Pulse Ox 96% on 2 lpm NC; aa9 07:30 BP 136 / 63; Pulse 92; Resp 17; Pulse Ox 93% on 2 lpm NC; Pain 10/10; kc6 02:53 Body Mass Index 36.21 (89.81 kg, 157.48 cm) aa9 ED Course: 02:52 Patient arrived in ED. vc1 02:55 Eze Aguilera MD is Attending Physician. ivan 02:56 Triage completed. aa9 02:59 Arm band placed on right wrist. aa9 03:26 XRAY Chest (1 view) In Process Unspecified. EDMS 03:38 CT Traumagram (Head C Spine CAP wo con) In Process Unspecified. EDMS 04:00 Missed attempt(s): 22 gauge in left antecubital area. Bleeding controlled, band aid aa9 applied, catheter tip intact. 04:22 Patient has correct armband on for positive identification. Bed in low position. Call aa9 light in reach. Side rails up X2. 04:39 Augustin Moss is Hospitalizing Provider. ivan 04:45 First set of blood cultures drawn by me. Accessed peripheral vein via ultrasound, bb utilizing dynamic ultrasound technique Powerglide midline 18g 10cm using hospital protocol to left upper arm with good blood return and flushes easily pt tolerated well blood collected. 05:00 Second set of blood cultures drawn by me. bb 05:57 Yazmin Hager, YUNIOR is Primary Nurse. bb 07:15 No provider procedures requiring assistance completed. Patient admitted, IV remains in aa9 place. Administered Medications: 04:35 Drug: Albuterol - atroVENT (ipratropium) (3:1) (2.5 mg - 0.5 mg) 3 ml Route: Nebulizer; aa9 07:17 Follow up: Response: No adverse reaction aa9 05:30 Drug: NS 0.9% 1000 ml Route: IV; Rate: 125 ml/hr; Site: PICC; aa9 07:17 Follow up: Response: No adverse reaction; IV Status: Infusion continued upon admission; aa9 IV Intake: 200ml 05:30 Drug: Rocephin (cefTRIAXone) 1 grams Route: IV; Rate: per protocol; Site: PICC; aa9 06:48 Follow up: Response: No adverse reaction; IV Status: Completed infusion; IV Intake: [id number] 05:30 Drug: Zithromax (azithromycin) 500 mg Route: IVPB; Infused Over: 1 hrs; Site: PICC; aa9 06:48 Follow up: Response: No adverse reaction; IV Status: Completed infusion; IV Intake: aa9 250ml 06:16 Not Given (Patient Refused): Albuterol 2.5 mg Inhalation once aa9 06:34 Drug: SOLU-Medrol (methylPrednisoLONE) 125 mg Route: IVP; Site: PICC; aa9 07:17 Follow up: Response: No adverse reaction aa9 06:48 Drug: vancoMYCIN 1 grams Route: IVPB; Infused Over: 2 hrs; Site: PICC; aa9 09:12 Follow up: Response: No adverse reaction; IV Status: Completed infusion kc6 Medication: 07:15 VIS not applicable for this client. aa9 Intake: 06:48 IV: 10ml; Total: 10ml. aa9 06:48 IV: 250ml; Total: 260ml. aa9 07:17 IV: 200ml; Total: 460ml. aa9 Outcome: 04:41 Decision to Hospitalize by Provider. ivan 07:15 Admitted to ER Hold. Please see [facility] for further documentation. aa9 07:15 Condition: stable 07:15 Instructed on the need for admit. 13:46 Patient left the ED. kc6 Signatures: Dispatcher [employer] Eze Dueñas MD MD cha Ballard, Brenda RN RN bb Regina Loaiza RN RN vc1 Ladonna Carreno RN RN aa9 Loretta Rose RN RN kc6 Corrections: (The following items were deleted from the chart) 05:10 04:00 BP 153 / 64; Pulse 95bpm; Resp 17bpm; Spontaneous; Pulse Ox 96% RA; aa9 aa9
[2022-02-10 04:43] LABS: Protime INR 1.17
[2022-02-10 04:46] LABS: Absolute Lymphocytes (CBC) 2.8 K/uL (0.7-4.9); Hematocrit 41.3 % (36.0-45.0); Lymphocytes % 35.3 % (15.3-44.8); MCV 90.3 fL (80-100); MPV 8.7 fL (7.6-11.3); RBC Red Blood Cell Count 4.57 M/uL (3.86-4.86)
--- NOTE | 2022-02-10 05:02 | P.HP ---
Certification for Inpatient Patient admitted to: Inpatient With expected LOS: >2 Midnights Patient will require the following post-hospital care: None Practitioner: I am a practitioner with admitting privileges, knowledge of patient current condition, hospital course, and medical plan of care. Services: Services provided to patient in accordance with Admission requirements found in Title 42 Section 412.3 of the Code of Federal Regulations Patient History Date of Service: 02/10/22 Primary Care Provider: Salvador Reason for admission: Multilobar Pneumonia History of Present Illness: Patient is a 76-year-old female past medical history of hypertension, COPD on home O2, CVA, and insulin dependent type 2 diabetes who presented to the emergency department via EMS with complaints of shortness of breath. Patient reports that she has been in and out of the hospital for over a month now with shortness of breath/pneumonia. She has been on several different antibiotics. Her symptoms wax and wane but today she has been feeling worse. She was saturating appropriately on 2L (her baseline) upon arrival but experiencing labored breathing. No white count. Lactate pending. Chest CT showed "multilobar infectious process, most prominent involving the right lung." She was started on Vanco, ceftriaxone, and azithromycin emergency department. She will be admitted for further management. Allergies carbamazepine [From Tegretol] Allergy (Intermediate, Verified 05/17/19 14:46) Hives/Rash Iodinated Contrast Media [IV Dye, Iodine Containing Contrast ] Allergy (Intermediate, Verified 05/17/19 14:46) Hives Home medications list reviewed: Yes Home Medications: Aspirin [Aspir-Low] 81 mg PO DAILY 04/30/17 Atorvastatin Calcium [Lipitor*] 20 mg PO BEDTIME tab 06/01/19 Pregabalin [Lyrica] 300 mg PO BID #60 cap 06/01/19 Omeprazole 20 mg PO BID #60 tablet. 04/06/20 Acetaminophen [Tylenol Extra Strength] 1,000 mg PO BEDTIME 12/17/21 Amlodipine [Norvasc*] 10 mg PO DAILY 12/17/21 Diphenhydramine [Benadryl*] 50 mg PO BEDTIME 12/17/21 Fluoxetine HCl [Prozac] 40 mg PO DAILY 12/17/21 Losartan Potassium 100 tab PO DAILY 12/17/21 Metformin ER [Glucophage ER*] 500 mg PO BID 12/17/21 Insulin Glargine/Lixisenatide [Soliqua 100 Unit-33 Mcg/ml Pen] 60 units SQ DAILY 01/13/22 levoFLOXacin [Levaquin*] 500 mg PO DAILY #10 tab 01/14/22 predniSONE [Deltasone*] 20 mg PO DAILY #10 tab 01/18/22 - Past Medical/Surgical History Diabetic: Yes -: CVA -: HTN -: TIA -: IDDM -: COPD -: BREAST AND CERVICAL CA -: ANEMIA -: DEPRESSION/ANXIETY -: HEADACHES -: Bladder Suspension sx 4 -: Left Ankle Surgery -: Stomach surgery (ureter sx) -: Breast biopsy -: appy -: hysterectomy Psychosocial/ Personal History: Patient lives at home alone. - Family History Father -: Hypertension, Stroke Mother -: Hypertension, Diabetes - Social History Smoking Status: Never smoker Alcohol use: No CD- Drugs: No Caffeine use: Yes Place of Residence: Home Review of Systems General: Fever, Weakness Respiratory: Cough, Shortness of Breath Physical Examination - Vital Signs Temperature: 98.2 F Blood Pressure: 161/63 Pulse: 90 Respirations: 20 Pulse Ox (%): 96 (2L NC) - Physical Exam General: Alert, Mild distress, Obese HEENT: Atraumatic, PERRLA, EOMI, Sclerae nonicteric Neck: Supple, 2+ carotid pulse no bruit, No LAD, Without JVD or thyroid abnormality Respiratory: Expiratory wheezes Cardiovascular: Regular rate/rhythm, Normal S1 S2 Gastrointestinal: Normal bowel sounds, No tenderness Musculoskeletal: No tenderness Integumentary: No rashes Neurological: Normal speech, Sensation intact - Studies Laboratory Data (last 24 hrs) 02/10/22 04:27: PT 12.9 H, INR 1.17 02/10/22 04:27: WBC 7.90, Hgb 13.2, Hct 41.3, Plt Count 250 Assessment and Plan - Problems (Diagnosis) (1) Atrial fibrillation Status: Chronic Qualifiers: Atrial fibrillation type: paroxysmal Qualified Code(s): I48.0 - Paroxysmal atrial fibrillation (2) COPD (chronic obstructive pulmonary disease) Current Visit: Yes Status: Chronic Qualifiers: COPD type: unspecified COPD Qualified Code(s): J44.9 - Chronic obstructive pulmonary disease, unspecified (3) Pneumonia Current Visit: Yes Status: Acute Qualifiers: Pneumonia type: due to unspecified organism Laterality: bilateral Lung location: unspecified part of lung Qualified Code(s): J18.9 - Pneumonia, unspecified organism (4) Diabetes mellitus type 2 Current Visit: Yes Status: Chronic (5) Hypertension Current Visit: Yes Status: Chronic Qualifiers: Hypertension type: primary hypertension Qualified Code(s): I10 - Essential (primary) hypertension - Plan Patient is admitted for further management of multilobar pneumonia. Continue supportive measures with supplemental oxygen, breathing treatments, antitussives, decongestants. Titrate O2 and wean as tolerated. Solu-Medrol, incentive spirometry, and antibiotics IV. Patient does not meet sepsis criteria. Blood cultures were obtained. Sputum culture ordered. ID consulted given patient has been on several different antibiotics for pneumonia recently. Physical therapy consult. ACHS accu checks with mild sliding scale and diabetic diet. Monitor and replete electrolytes per protocol. Reconcile and continue home medications. Lovenox for VTE prophylaxis. Full code. Discharge Plan: Home Plan to discharge in: Greater than 2 days - Advance Directives Does patient have a Living Will: No Does patient have a Durable POA for Healthcare: No - Code Status/Comfort Care Code Status Assessed: Yes Code Status: Full Code Physician Review: Patient Assessed, Agree with Above Assessment and Plan Critical Care: No Time Spent Managing Pts Care (In Minutes): 50
[2022-02-10 05:30] LABS: ALT/SGPT 40 U/L (13-56); AST/SGOT 58 U/L (15-37); Alkaline Phosphatase 97 U/L (45-117); BUN Blood Urea Nitrogen 14 mg/dL (7-18); Bicarbonate 27 mmol/L (21-32); Bilirubin Direct < 0.1 mg/dL (0-0.2); Bilirubin Total 0.5 mg/dL (0.2-1.0); Glomerular Filtration Rate 62 ml/min (=/>90); Glucose Level 244 mg/dL (74-106); Magnesium 1.6 mg/dL (1.6-2.4); NT PRO-BNP 157 pg/mL (<450); Potassium 5.1 mmol/L (3.5-5.1); Protein, Total 7.6 g/dL (6.4-8.2); Sodium Level 138 mmol/L (136-145); Troponin High Sensitivity 9.3 pg/mL (<58.9)
[2022-02-10 05:34] LABS: SARS-COV-2 RT PCR NEGATIVE (NEGATIVE)
[2022-02-10] MEDS ORDERED: VANCOMYCIN 1 GM/VIAL ONE ×2 (06:39→10:30)
[2022-02-10] MEDS: INSULIN -REGULAR HUMAN 50 UNIT/0.5 ML ML SQ SCH ×4 (08:41→21:35)
[2022-02-10] MEDS ORDERED: ALBUTEROL 2.5 MG/3 ML NEB SOL NEB PRN (08:41)
[2022-02-10] MEDS ORDERED: VANCOMYCIN 1 GM in NA CHLORIDE 0.9% 250 ML IVPB SCH (08:41)
[2022-02-10] MEDS ORDERED: IPRATROPIUM BROM 0.5MG/2.5ML NEB PRN (08:41)
[2022-02-10] MEDS: ENOXAPARIN 40 MG/0.4 ML SQ SCH (09:00)
[2022-02-10] MEDS ORDERED: VANCOMYCIN 1 GM in NA CHLORIDE 0.9% 250 ML IVPB ONE (09:00)
[2022-02-10] MEDS: METHYLPREDNISOLONE 40 MG INJ IV SCH ×2 (09:00→16:32)
[2022-02-10] MEDS ORDERED: BENZONATATE 100 MG CAP PO ONE (09:01)
[2022-02-10] MEDS ORDERED: ACETAMINOPHEN 500 MG TAB ONE (09:02)
[2022-02-10] MEDS ORDERED: METHYLPREDNISOLONE 40 MG INJ ONE (09:02)
[2022-02-10] MEDS ORDERED: INSULIN -REGULAR HUMAN 50 UNIT/0.5 ML ML ONE ×2 (09:03→12:25)
[2022-02-10] MEDS ORDERED: ENOXAPARIN 40 MG/0.4 ML SQ ONE (09:03)
[2022-02-10] MEDS: ACETAMINOPHEN 500 MG TAB PO PRN ×2 (09:11→17:11)
[2022-02-10] MEDS: BENZONATATE 100 MG CAP PO PRN ×3 (09:11→22:47)
[2022-02-10] MEDS: GUAIFENESIN 600 MG SA TAB PO PRN ×2 (09:24→21:40)
[2022-02-10] MEDS ORDERED: GUAIFENESIN 600 MG SA TAB PO ONE (09:25)
[2022-02-10] MEDS ORDERED: PNEUMOCOCCAL VACCINE 0.5 ML IMVAC ONE (12:00)
[2022-02-10] MEDS ORDERED: INFLUENZA VACCINE (for 6+ mo) 0.5 ML DOSE IMVAC ONE (12:00)
--- NOTE | 2022-02-10 17:27 | P.CNS ---
Date of Consult: 02/10/22 Primary Care Provider: Salvador Chief Complaint: Multilobar Pneumonia History of Present Illness: Patient is 76 years of age history of diabetes hypertension presented to the emergency room with worsening dyspnea patient has been treated with several different antibiotics came in feeling worse slight hypoxemia over her white count is normal he appears to have a new right mid zone infiltrate Allergies carbamazepine [From Tegretol] Allergy (Intermediate, Verified 05/17/19 14:46) Hives/Rash Iodinated Contrast Media [IV Dye, Iodine Containing Contrast ] Allergy (Intermediate, Verified 05/17/19 14:46) Hives Home Medications: Aspirin [Aspir-Low] 81 mg PO DAILY 04/30/17 Atorvastatin Calcium [Lipitor*] 20 mg PO BEDTIME tab 06/01/19 Pregabalin [Lyrica] 300 mg PO BID #60 cap 06/01/19 Omeprazole 20 mg PO BID #60 tablet. 04/06/20 Acetaminophen [Tylenol Extra Strength] 1,000 mg PO BEDTIME 12/17/21 Amlodipine [Norvasc*] 10 mg PO DAILY 12/17/21 Diphenhydramine [Benadryl*] 50 mg PO BEDTIME 12/17/21 Fluoxetine HCl [Prozac] 40 mg PO DAILY 12/17/21 Losartan Potassium 100 tab PO DAILY 12/17/21 Metformin ER [Glucophage ER*] 500 mg PO BID 12/17/21 Insulin Glargine/Lixisenatide [Soliqua 100 Unit-33 Mcg/ml Pen] 60 units SQ DAILY 01/13/22 predniSONE [Deltasone*] 20 mg PO DAILY #10 tab 01/18/22 levoFLOXacin [Levaquin*] 500 mg PO BID 02/10/22 - Past Medical/Surgical History Diabetic: Yes -: CVA -: HTN -: TIA -: IDDM -: COPD -: BREAST AND CERVICAL CA -: ANEMIA -: DEPRESSION/ANXIETY -: HEADACHES -: Bladder Suspension sx 4 -: Left Ankle Surgery -: Stomach surgery (ureter sx) -: Breast biopsy -: appy -: hysterectomy Psychosocial/ Personal History: Patient lives at home alone. - Family History Father Medical History: Hypertension, Stroke Mother Medical History: Hypertension, Diabetes - Social History Smoking Status: Current every day smoker Alcohol use: No CD- Drugs: No Caffeine use: Yes Place of Residence: Home Review of Systems General: Fever, Weakness, Malaise Respiratory: Cough, Shortness of Breath Physical Examination Temp Pulse Resp BP Pulse Ox 96.9 F 88 18 137/63 95 02/10/22 15:47 02/10/22 15:47 02/10/22 15:47 02/10/22 15:47 02/10/22 15:47 General: Alert, Moderate distress Respiratory: Expiratory wheezes Cardiovascular: No edema, Normal pulses, Regular rate/rhythm Gastrointestinal: Normal bowel sounds, Soft and benign, Non-distended Laboratory Data (last 24 hrs) 02/10/22 04:27: PT 12.9 H, INR 1.17 02/10/22 04:27: WBC 7.90, Hgb 13.2, Hct 41.3, Plt Count 250 02/10/22 04:27: Sodium 138, Potassium 5.1, BUN 14, Creatinine 0.95, Glucose 244 H, Magnesium 1.6, Total Bilirubin 0.5, AST 58 H, ALT 40, Alkaline Phosphatase 97 - Problems (1) Pneumonia Current Visit: Yes Status: Acute Plan: Patient is 76 years of age admitted with right-sided multifocal pneumonia. She does not have a white count fever is significant worsening from a loss CT scan that was done January 12 I agree with steroids may have bronchiolitis obliterans penumonai. Agree with steroidsPatient is 76 years of age admitted with right- sided multifocal pneumonia. She does not have a white count fever is significant worsening from a loss CT scan that was done January 12 I agree with steroids may have bronchiolitis obliterans penumonai. Agree with steroidsOxygenation vital signs all satisfactory possible discharge on prednisone 10 mg twice a day for 10 days.Patient was treated with the course of steroids and Levaquin on January Qualifiers: Pneumonia type: due to unspecified organism Laterality: bilateral Lung location: unspecified part of lung Qualified Code(s): J18.9 - Pneumonia, unspecified organism
--- NOTE | 2022-02-10 17:38 | P.PN ---
Subjective Date of Service: 02/10/22 Primary Care Provider: Salvador Chief Complaint: Multilobar Pneumonia Subjective: C/O voiced FEVER FOR 3 DAYS, COUGH FOR 3 DAYS. FELL AT HOME AND HURT LOWER BACK. Review of Systems 10-point ROS is otherwise unremarkable General: Weakness, Malaise Respiratory: Shortness of Breath Physical Examination - Vital Signs Temperature: 96.9 F Blood Pressure: 137/63 Pulse: 88 Respirations: 18 Pulse Ox (%): 95 - Physical Exam General: Oriented x3, Mild distress, Moderate distress, Obese HEENT: Atraumatic, PERRLA, EOMI Neck: Supple, JVD not distended Respiratory: Diminished Cardiovascular: Regular rate/rhythm, Normal S1 S2 Gastrointestinal: Normal bowel sounds, No tenderness Musculoskeletal: No tenderness Integumentary: No rashes Neurological: Normal speech, Normal tone, Normal affect Lymphatics: No axilla or inguinal lymphadenopathy - Studies Laboratory Data (last 24 hrs) 02/10/22 04:27: PT 12.9 H, INR 1.17 02/10/22 04:27: WBC 7.90, Hgb 13.2, Hct 41.3, Plt Count 250 02/10/22 04:27: Sodium 138, Potassium 5.1, BUN 14, Creatinine 0.95, Glucose 244 H, Magnesium 1.6, Total Bilirubin 0.5, AST 58 H, ALT 40, Alkaline Phosphatase 97 Medications List Reviewed: Yes Assessment And Plan - Plan BACTERIAL PNEUMONIA FAILED ORAL ABX FOR LAST TWO ADMISSIONS. PNEUMONIA IS NEW FROM THEN. SPUTUM CS MERREM IV HAS BEEN ON RECENT AUGMENTIN AND LEVAQUIN. HIGH RISK COPD PATIENT. Physician Review: Patient Assessed, Agree with Above Assessment and Plan
[2022-02-10] MEDS: ONDANSETRON 4 MG/2 ML VIAL IV PRN (17:47)
[2022-02-10] MEDS ORDERED: AZITHROMYCIN IV 500 MG in NA CHLORIDE 0.9% 250 ML IVPB SCH (21:00)
--- NOTE | 2022-02-10 21:14 | RAD REPORT ---
EXAM DESCRIPTION: RAD - Chest Single View - 02/10/2022 3:24 am CLINICAL HISTORY: COUGH TECHNIQUE: Frontal view of the chest. COMPARISON: XR Chest dated 05/12/2019 FINDINGS: Lungs: Coarsened interstitial markings. Patchy right mid lung zone opacities. Pleural space: Unremarkable. No pneumothorax. Heart: The cardiac silhouette is mildly enlarged, stable, in part accentuated by portable technique . Mediastinum: Unremarkable. Bones/joints: Multilevel spondylosis. IMPRESSION: Right mid lung zone infiltrates. Electronically signed by: Howard Olivier MD 02/10/2022 3:54 AM AUTOMOTIVE PORTER Due to temporary technical issues with the PACS/Fluency reporting system, reports are being signed by the in house radiologists without review as a courtesy to insure prompt reporting. The interpreting radiologist is fully responsible for the content of the report.
--- NOTE | 2022-02-10 21:16 | RAD REPORT ---
EXAM DESCRIPTION: CT - Head C Spine Cap Wo Con - 02/10/2022 6:55 am CLINICAL HISTORY: The patient is 76 years old and is Female; fall TECHNIQUE: Axial computed tomography images of the head/brain and cervical spine without intravenous contrast. Sagittal and coronal reformatted images were created and reviewed. This CT exam was pe rformed using one or more of the following dose reduction techniques: automated exposure control, a djustment of the mA and/or kV according to patient size, and/or use of iterative reconstruction techn ique. COMPARISON: No relevant prior studies available. FINDINGS: BRAIN: Unremarkable. No hemorrhage. No significant white matter disease. No edema. VENTRICLES: Unremarkable. No ventriculomegaly. SKULL: No acute fracture. SINUSES: Right maxillary sinus fluid is present. MASTOID AIR CELLS: Unremarkable as visualized. No mastoid effusion. VERTEBRAE: The vertebral body heights and alignment are maintained. No acute fracture. DISCS/SPINAL CANAL/NEURAL FORAMINA: There is multi-level intervertebral disc height loss. There are disc-osteophyte complexes at several levels, with associated mild spinal canal narrowing. There i s also facet hypertrophy and uncovertebral joint osteophytosis, with associated multilevel neural for aminal narrowing. SOFT TISSUES: The soft tissues are normal. LUNG APICES: Unremarkable as visualized. IMPRESSION: 1. No acute intracranial findings. 2. Spondylosis of the cervical spine without acute findings. EXAM DESCRIPTION: CT Chest, Abdomen and Pelvis Without Intravenous Contrast CLINICAL HISTORY: The patient is 76 years old and is Female; fall TECHNIQUE: Axial computed tomography images of the chest, abdomen and pelvis without intravenous con trast. Sagittal and coronal reformatted images were created and reviewed. This CT exam was perfor med using one or more of the following dose reduction techniques: automated exposure control, adjus tment of the mA and/or kV according to patient size, and/or use of iterative reconstruction technique . COMPARISON: No relevant prior studies available. FINDINGS: CHEST: LUNGS: Nodular groundglass infiltrates are present throughout the right lung. A few subtle groun dglass infiltrates within the left lung are also noted. PLEURAL SPACE: Unremarkable. No significant effusion. No pneumothorax. HEART: No cardiomegaly. No pericardial effusion. MEDIASTINUM: A small hiatal hernia is noted. ABDOMEN: LIVER: The liver is mildly fatty and enlarged. GALLBLADDER AND BILE DUCTS: Surgical clips are present in the right upper quadrant, consistent w ith previous cholecystectomy. PANCREAS: Fatty infiltration of pancreas is present. No ductal dilation. SPLEEN: Unremarkable. ADRENALS: Unremarkable. No mass. KIDNEYS AND URETERS: A 2.4 cm right renal cyst is present. No follow-up imaging is recommended. There is no hydronephrosis or hydroureter of either kidney. No obstructing renal or ureteral calculus is seen. STOMACH AND BOWEL: The stomach is decompressed. The small bowel is normal in caliber. Minimal st ool is noted throughout the colon. There is no mucosal thickening or evidence of bowel obstruction. PELVIS: APPENDIX: No findings to suggest acute appendicitis. BLADDER: The bladder is well distended. No stones. REPRODUCTIVE: The patient is status post hysterectomy. CHEST, ABDOMEN and PELVIS: INTRAPERITONEAL SPACE: Unremarkable. No significant fluid collection. No free air. BONES/JOINTS: Subtle compression fracture of the superior endplate of L2 is present. There is no significant height loss or evidence of retropulsion. Remaining vertebral body heights and alignment are maintained. There is no other acute fracture of the visualized axial and appendicular skeleton. SOFT TISSUES: The soft tissues are normal. VASCULATURE: Unremarkable. No aortic aneurysm. LYMPH NODES: Unremarkable. No enlarged lymph nodes. IMPRESSION: 1. Findings suggest multilobar infectious process, most prominent involving the right lung. 2. No evidence of solid organ injury on this noncontrasted CT of the chest, abdomen, and pelvis. 3. Acute subtle compression fracture of the superior endplate of L2 without significant height loss or retropulsion. Electronically signed by: Tracie Gutierrez MD 02/10/2022 4:02 AM PROGRAM DIRECTOR/TRAFFIC DIRECTOR Due to temporary technical issues with the PACS/Fluency reporting system, reports are being signed by the in house radiologists without review as a courtesy to insure prompt reporting. The interpreting radiologist is fully responsible for the content of the report.
[2022-02-10] MEDS: Meropenem 1,000 MG in NA CHLORIDE 0.9% 100 ML IV SCH (22:37)
[2022-02-10] MEDS: PREGABALIN 150 MG CAP PO SCH (22:38)
[2022-02-11] MEDS ORDERED: Meropenem 1,000 MG in NA CHLORIDE 0.9% 100 ML IV SCH (01:00)
[2022-02-11] MEDS: ACETAMINOPHEN 500 MG TAB PO PRN ×2 (03:10→14:37)
[2022-02-11] MEDS: PANTOPRAZOLE 40MG TABLET PO SCH (05:49)
[2022-02-11 06:49] LABS: Absolute Lymphocytes (CBC) 1.1 K/uL (0.7-4.9); Lymphocytes % 12.9 % (15.3-44.8); MCV 88.7 fL (80-100); MPV 8.6 fL (7.6-11.3)
[2022-02-11 07:07] LABS: Magnesium 1.8 mg/dL (1.6-2.4); Phosphorus 3.2 mg/dL (2.5-4.9); Potassium 4.3 mmol/L (3.5-5.1)
[2022-02-11] MEDS: LIDOCAINE 4% PATCH TOP SCH (08:50)
[2022-02-11] MEDS: Meropenem 1,000 MG in NA CHLORIDE 0.9% 100 ML IV SCH ×2 (08:50→22:03)
[2022-02-11] MEDS: BENZONATATE 100 MG CAP PO PRN ×3 (08:50→22:16)
[2022-02-11] MEDS: ENOXAPARIN 40 MG/0.4 ML SQ SCH (08:50)
[2022-02-11] MEDS: PREGABALIN 150 MG CAP PO SCH ×2 (08:51→22:01)
[2022-02-11] MEDS: FLUOXETINE 20 MG CAP PO SCH (08:51)
[2022-02-11] MEDS: predniSONE 10 MG TAB PO SCH (08:52)
[2022-02-11] MEDS: LOSARTAN POTASSIUM 50 MG TABLET PO SCH (08:52)
[2022-02-11] MEDS: ASPIRIN EC 81 MG TAB PO SCH (08:52)
[2022-02-11] MEDS: METFORMIN ER 500 MG TAB PO SCH ×2 (08:52→16:45)
[2022-02-11] MEDS: AMLODIPINE 10 MG TAB PO SCH (08:52)
[2022-02-11] MEDS ORDERED: MAGNESIUM SULFATE 1 gm IVPB 1 GM/100 ML BAG IV ONE (09:00)
[2022-02-11] MEDS ORDERED: PREGABALIN 150 MG CAP PO SCH (09:00)
[2022-02-11] MEDS: INSULIN -REGULAR HUMAN 50 UNIT/0.5 ML ML SQ SCH ×4 (09:36→22:03)
--- NOTE | 2022-02-11 10:59 | RAD REPORT ---
EXAM DESCRIPTION: MRI - Lumbar Spine Wo Con - 02/11/2022 10:37 am CLINICAL HISTORY: SPINE FRACTURE , POSSIBLE SPINAL CORD COMPRESSION. COMPARISON: Abdomen Pelvis Wo Contrast dated 12/17/2021 TECHNIQUE: Sagittal T1-weighted, T2-weighted and T2-STIR weighted sequences were obtained. Axial T1 -weighted and heavily T2-weighted sequenceswere obtained through the lumbar disc levels. FINDINGS: L3-L5 and T12-L1 are normal in height. No marrow signal abnormalities present. No paraspin al masses are present. Compression fractures present in the L2 body. There is concave collapse along the superior endplate. Subcortical horizontal fracture line is seen. There is some edema signal present along the superior a spect L2. Overall body height loss is approximately 20%. There is retropulsion of the superior aspect posterior wall into the central canal. Central canal is 12 mm at the L2 level. Conus is normal with no clumping or thickening of the cauda equina. T12-L1 level: No significant findings. L1-2 level: Disc is desiccated. No herniation or significant disc bulge. L2-3 level: Disc is desiccated. Mild disc bulge changes are present in the central canal and exit for cindy with no resulting stenoses. Ligamentous thickening is present with mild facet degenerative trivedi ge. L3-4 level: Disc is desiccated. Central canal and right foraminal mild disc bulge changes are present not resulting in stenosis. L4-5 level: Minimal desiccation change. Foraminal disc bulge is very minimal. Patient does have moder ately prominent facet hypertrophic degenerative change contributing to the mild foraminal stenosis. L5-S1 level: Mild desiccation changes are present. Disc bulge is seen in the central canal and exit f oramina, mild in severity. Patient has very pronounced facet joint hypertrophic degenerative changes. There is resulting mild to moderate bilateral foraminal stenosis. IMPRESSION: Subacute L2 20% compression fracture new from the December 27 CT examination. Posterior wall of the L2 body encroaches into the central canal but does not cause significant stenos is. Degenerative disc disease and hypertrophic degenerative facet changes contributing to areas of forami nal stenosis detailed in the body of the report. No central canal stenosis.
[2022-02-11 11:04] VITALS: BMI 36.2
[2022-02-11] MEDS ORDERED: INFLUENZA VACCINE (for 6+ mo) 0.5 ML DOSE IMVAC ONE (13:00)
[2022-02-11] MEDS ORDERED: PNEUMOCOCCAL VACCINE 0.5 ML IMVAC ONE (13:00)
--- NOTE | 2022-02-11 14:27 | RAD REPORT ---
EXAM DESCRIPTION: Michaeljoanne Single View02/11/2022 2:22 pm CLINICAL HISTORY: Chest pain COMPARISON: February 10 2022 FINDINGS: Mild improvement in right lung opacities. No other change IMPRESSION: Mild improvement in right pneumonia
[2022-02-11] MEDS ORDERED: VANCOMYCIN 1.5 GM in NA CHLORIDE 0.9% 500 ML IVPB SCH (18:00)
--- NOTE | 2022-02-11 21:49 | P.PN ---
Subjective Date of Service: 02/11/22 Primary Care Provider: Salvador Chief Complaint: Multilobar Pneumonia Subjective: Improving FEVER FOR 3 DAYS, COUGH FOR 3 DAYS. FELL AT HOME AND HURT LOWER BACK. SHE LOOKS BETTER BUT STILL COUGHS CONSTANTLY AND HAS DYSPNEA. Review of Systems 10-point ROS is otherwise unremarkable General: Weakness, Malaise Respiratory: Cough, Shortness of Breath Physical Examination - Vital Signs Temperature: 96.9 F Blood Pressure: 151/65 Pulse: 107 Respirations: 18 Pulse Ox (%): 90 - Physical Exam General: Oriented x3, Mild distress, Moderate distress, Obese HEENT: Atraumatic, PERRLA, EOMI Neck: Supple, JVD not distended Respiratory: Clear to auscultation bilaterally, Normal air movement Cardiovascular: Regular rate/rhythm, Normal S1 S2 Gastrointestinal: Normal bowel sounds, No tenderness Musculoskeletal: No tenderness Integumentary: No rashes Neurological: Normal speech, Normal tone, Normal affect Lymphatics: No axilla or inguinal lymphadenopathy - Studies Medications List Reviewed: Yes Assessment And Plan - Current Problems (Diagnosis) (1) Dyspnea Current Visit: Yes Status: Chronic Plan: MOST LIKELY PULMONARY IN ORIGIN CHECK BNP ECHO TO RULE OUT OTHER CAUSES. WE CAN'T DO CT ANGIO ALLERGIC TO DYE D DIMER IS 600 THAT IS NOT UNUSUALY FOR SOMEONE WITH INFLAMMATION. CONTINUE LOVENOX SC Qualifiers: Dyspnea type: orthopnea Qualified Code(s): R06.01 - Orthopnea (2) Pneumonia Current Visit: Yes Status: Acute Qualifiers: Pneumonia type: due to unspecified organism Laterality: bilateral Lung location: unspecified part of lung Qualified Code(s): J18.9 - Pneumonia, unspecified organism (3) Diabetes mellitus type 2 Current Visit: Yes Status: Chronic - Plan BACTERIAL PNEUMONIA FAILED ORAL ABX FOR LAST TWO ADMISSIONS. PNEUMONIA IS NEW FROM THEN. SPUTUM CS MERREM IV HAS BEEN ON RECENT AUGMENTIN AND LEVAQUIN. HIGH RISK COPD PATIENT. Physician Review: Patient Assessed, Agree with Above Assessment and Plan
[2022-02-11] MEDS: DIPHENHYDRAMINE 25 MG TAB/CAP PO SCH (22:02)
[2022-02-11] MEDS: ATORVASTATIN 20 MG TAB PO SCH (22:02)
[2022-02-11] MEDS: ACETAMINOPHEN 500 MG TAB PO SCH (22:02)
[2022-02-12 04:48] LABS: Absolute Lymphocytes (CBC) 2.1 K/uL (0.7-4.9); Hematocrit 35.8 % (36.0-45.0); Lymphocytes % 28.9 % (15.3-44.8); MCV 89.3 fL (80-100); MPV 8.3 fL (7.6-11.3); RBC Red Blood Cell Count 4.01 M/uL (3.86-4.86)
[2022-02-12 05:51] LABS: Potassium 3.9 mmol/L (3.5-5.1)
[2022-02-12] MEDS: PANTOPRAZOLE 40MG TABLET PO SCH (06:38)
--- NOTE | 2022-02-12 08:35 | P.PN ---
Subjective Date of Service: 02/12/22 Primary Care Provider: Salvador Chief Complaint: Multilobar Pneumonia No change patient is complaining of coughing spells fever chills shortness of breath Review of Systems General: Weakness Respiratory: Cough, Shortness of Breath Physical Examination - Vital Signs Temperature: 98.3 F Blood Pressure: 156/66 Pulse: 91 Respirations: 16 Pulse Ox (%): 94 - Physical Exam General: Alert, Moderate distress Respiratory: Expiratory wheezes Cardiovascular: No edema, Regular rate/rhythm, Normal S1 S2 - Studies Medications List Reviewed: Yes Assessment And Plan - Current Problems (Diagnosis) (1) Pneumonia Current Visit: Yes Status: Acute Plan: Patient is not doing well history of recurrent pneumonia right middle lobe infiltrate and for bronchoscopy tomorrow discussed with the patient about bronchoscopy and risk include bleeding infection lung collapse patient agrees to wait she has been changed to prednisone continue with meropenem labs reviewed white count is normal so far blood cultures are negative needs promethazine with codeine chest x-ray yesterday shows an improvement Qualifiers: Pneumonia type: due to unspecified organism Laterality: bilateral Lung location: unspecified part of lung Qualified Code(s): J18.9 - Pneumonia, unspecified organism Physician Review: Patient Assessed, Agree with Above Assessment and Plan
[2022-02-12] MEDS ORDERED: METOPROLOL TARTRATE 5 MG/5 ML INJ IV ONE (08:49)
[2022-02-12] MEDS ORDERED: METOPROLOL TARTRATE 5 MG/5 ML INJ IV STA (08:54)
[2022-02-12] MEDS: METOPROLOL TAR 50 MG TAB PO SCH ×2 (09:02→20:26)
[2022-02-12] MEDS: PROMETHAZINE-DM 5 ML OSYR PO SCH ×3 (09:08→20:30)
[2022-02-12] MEDS: IPRATROPIUM BROM 0.5MG/2.5ML NEB SCH ×3 (09:10→21:15)
[2022-02-12] MEDS: INSULIN -REGULAR HUMAN 50 UNIT/0.5 ML ML SQ SCH ×4 (09:27→20:53)
[2022-02-12] MEDS: PREGABALIN 150 MG CAP PO SCH ×2 (09:28→20:20)
[2022-02-12] MEDS: ASPIRIN EC 81 MG TAB PO SCH (09:28)
[2022-02-12] MEDS: METFORMIN ER 500 MG TAB PO SCH ×2 (09:29→17:24)
[2022-02-12] MEDS: LOSARTAN POTASSIUM 50 MG TABLET PO SCH (09:29)
[2022-02-12] MEDS: predniSONE 10 MG TAB PO SCH (09:29)
[2022-02-12] MEDS: FLUOXETINE 20 MG CAP PO SCH (09:29)
[2022-02-12] MEDS: AMLODIPINE 10 MG TAB PO SCH (09:30)
[2022-02-12] MEDS: TRAMADOL HCL 50 MG TAB PO PRN ×2 (09:30→20:25)
[2022-02-12] MEDS: FUROSEMIDE 20 MG/ 2ML VIAL IV SCH ×2 (09:31→20:21)
[2022-02-12] MEDS: LIDOCAINE 4% PATCH TOP SCH (09:32)
[2022-02-12] MEDS: Meropenem 1,000 MG in NA CHLORIDE 0.9% 100 ML IV SCH ×2 (10:17→20:19)
--- NOTE | 2022-02-12 11:04 | RAD REPORT ---
EXAM DESCRIPTION: Bhavik Single View02/12/2022 10:49 am CLINICAL HISTORY: Chest pain COMPARISON: February 11, 2022 FINDINGS: No significant change in a mild right pulmonary opacities probably pneumonia Left lung appears clear. Heart is borderline enlarged IMPRESSION: No significant change in a mild right pneumonia
[2022-02-12] MEDS: LEVALBUTEROL 0.63 MG/3 ML NEB NEB SCH ×2 (14:24→21:15)
[2022-02-12] MEDS: ARFORMOTEROL TARTRATE 15 MCG/2 ML VIAL.NEB NEB SCH ×2 (14:24→21:15)
--- NOTE | 2022-02-12 14:35 | EKG ---
Test Date: 2022-02-10 Test Time: 05:23:44 Chief Revenue Officer: BRUCE MEASUREMENT RESULTS: Intervals: Rate: 106 TX: 176 QRSD: 62 QT: 334 QTc: 443 [place]: P: 88 TX: 176 QRS: 46 T: 56 INTERPRETIVE STATEMENTS: Sinus tachycardia Otherwise normal ECG Compared to ECG 01/18/2022 09:30:53 Sinus bradycardia no longer present Sinus arrhythmia no longer present Electronically Signed On 02-12-22 14:32:23 METAL BED ASSEMBLER by Eliazar Bergeron
--- NOTE | 2022-02-12 16:41 | P.PN ---
Subjective Date of Service: 02/12/22 Primary Care Provider: Salvador Chief Complaint: Multilobar Pneumonia Subjective: No new changes FEVER FOR 3 DAYS, COUGH FOR 3 DAYS. FELL AT HOME AND HURT LOWER BACK. SHE LOOKS BETTER BUT STILL COUGHS CONSTANTLY AND HAS DYSPNEA. SHE MAY BE LITTLE BETTER. SHE HAD EPISODE OF SVT AFTER I CAME TO OFFICE. I GVAE HER DOSE OF LORPESSOR IV AND THEN LOPRESSORB BID BY DR COTA. Review of Systems 10-point ROS is otherwise unremarkable General: Weakness Physical Examination - Vital Signs Temperature: 98.3 F Blood Pressure: 116/48 Pulse: 78 Respirations: 16 Pulse Ox (%): 94 - Physical Exam General: Mild distress, Moderate distress, Obese HEENT: Atraumatic, PERRLA, EOMI Neck: Supple, JVD not distended Respiratory: Diminished Cardiovascular: Regular rate/rhythm, Normal S1 S2 Gastrointestinal: Normal bowel sounds, No tenderness Musculoskeletal: No tenderness Integumentary: No rashes Neurological: Normal speech, Normal tone, Normal affect Lymphatics: No axilla or inguinal lymphadenopathy - Studies Medications List Reviewed: Yes Assessment And Plan - Current Problems (Diagnosis) (1) Dyspnea Current Visit: Yes Status: Chronic Plan: MOST LIKELY PULMONARY IN ORIGIN CHECK BNP ECHO TO RULE OUT OTHER CAUSES. WE CAN'T DO CT ANGIO ALLERGIC TO DYE D DIMER IS 600 THAT IS NOT UNUSUALY FOR SOMEONE WITH INFLAMMATION. CONTINUE LOVENOX SC Qualifiers: Dyspnea type: orthopnea Qualified Code(s): R06.01 - Orthopnea (2) Pneumonia Current Visit: Yes Status: Acute Qualifiers: Pneumonia type: due to unspecified organism Laterality: bilateral Lung location: unspecified part of lung Qualified Code(s): J18.9 - Pneumonia, unspecified organism (3) Diabetes mellitus type 2 Current Visit: Yes Status: Chronic (4) SVT (supraventricular tachycardia) Current Visit: Yes Status: Acute Plan: STOP ALBUTEROL CHANGE TO XOPENEX LOPRESSOR BID. - Plan BACTERIAL PNEUMONIA FAILED ORAL ABX FOR LAST TWO ADMISSIONS. PNEUMONIA IS NEW FROM THEN. SPUTUM CS MERREM IV HAS BEEN ON RECENT AUGMENTIN AND LEVAQUIN. HIGH RISK COPD PATIENT. Physician Review: Patient Assessed, Agree with Above Assessment and Plan
[2022-02-12] MEDS: BENZONATATE 100 MG CAP PO PRN (20:20)
[2022-02-12] MEDS: ATORVASTATIN 20 MG TAB PO SCH (20:20)
[2022-02-12] MEDS: DIPHENHYDRAMINE 25 MG TAB/CAP PO SCH (20:20)
[2022-02-12] MEDS: ACETAMINOPHEN 500 MG TAB PO SCH (20:21)
[2022-02-13] MEDS: LEVALBUTEROL 0.63 MG/3 ML NEB NEB SCH ×4 (01:50→21:00)
[2022-02-13] MEDS: IPRATROPIUM BROM 0.5MG/2.5ML NEB SCH ×4 (01:50→21:00)
[2022-02-13] MEDS: PROMETHAZINE-DM 5 ML OSYR PO SCH ×4 (02:35→21:20)
[2022-02-13] MEDS: PANTOPRAZOLE 40MG TABLET PO SCH (05:16)
[2022-02-13 05:47] LABS: Absolute Lymphocytes (CBC) 3.5 K/uL (0.7-4.9); Hematocrit 37.1 % (36.0-45.0); Lymphocytes % 53.7 % (15.3-44.8); MCV 89.2 fL (80-100); MPV 8.1 fL (7.6-11.3); RBC Red Blood Cell Count 4.16 M/uL (3.86-4.86)
[2022-02-13 06:04] LABS: Potassium 4.1 mmol/L (3.5-5.1)
[2022-02-13] MEDS ORDERED: Phenylephrine HCl 10 MG/ML 1 ML VIAL ONE ×3 (06:29→07:28)
[2022-02-13] MEDS ORDERED: LIDOCAINE 4% TOP SOLUTION ONE (06:30)
[2022-02-13] MEDS ORDERED: NA CHLORIDE 0.9% 1,000 ML ONE (06:40)
[2022-02-13] MEDS ORDERED: GLYCOPYRROLATE 0.2 MG/ML SYR ONE ×2 (07:00→07:28)
[2022-02-13] MEDS ORDERED: LIDOCAINE VISCOUS 2% SOLN 15 ML UDC ONE (07:01)
[2022-02-13] MEDS ORDERED: LIDOCAINE 1% MPF 30 ML VIAL ONE (07:01)
[2022-02-13] MEDS ORDERED: LIDOCAINE 1% MPF 5 ML VIAL ONE (07:28)
[2022-02-13] MEDS ORDERED: propofoL 200 MG/20 ML VIAL IV ONE (07:28)
[2022-02-13] MEDS ORDERED: ETOMIDATE 20 MG/10 ML VIAL IV ONE (07:28)
[2022-02-13] MEDS ORDERED: NS 0.9% VIAL 0 ML ONE (07:28)
[2022-02-13] MEDS: INSULIN -REGULAR HUMAN 50 UNIT/0.5 ML ML SQ SCH ×4 (07:30→21:20)
[2022-02-13] MEDS ORDERED: ESMOLOL HCL 0 ML IV ONE (07:39)
[2022-02-13] MEDS: ARFORMOTEROL TARTRATE 15 MCG/2 ML VIAL.NEB NEB SCH ×2 (08:00→21:00)
--- NOTE | 2022-02-13 08:07 | P.OP ---
Date of Service: 02/13/22 (RUL transbronchial biopsy and BAL) Findings and Operative Technique Age 76 AW recurrent RUL pneumonia. Tx with Ab and steroids. bronch RO atypical pneumonia After obtaining an informed consent from pt. pt premedicated by anesthesia Finding- Normal bronch apart from mucoid secretions from RUL lobe. Multiple biopsies and BAL performed. No complications. cxry ordered spec sent for path and cultures
[2022-02-13] MEDS ORDERED: ALBUTEROL 2.5 MG/3 ML NEB SOL ONE (08:23)
--- NOTE | 2022-02-13 09:28 | RAD REPORT ---
EXAM DESCRIPTION: RAD - Chest Single View - 02/13/2022 9:21 am CLINICAL HISTORY: s/p bronchoscopy r/o pneumothorax TECHNIQUE: AP portable chest image was obtained 02/13/2022 9:21 am in expiration and inspiration. FINDINGS: Chronic interstitial lung disease is present. Persistent right midlung field opacification again noted. Heart and vasculature are normal. No measurable pleural effusion. No post bronchoscopy pneumothorax identified. IMPRESSION: No post bronchoscopy pneumothorax.
--- NOTE | 2022-02-13 09:44 | RAD REPORT ---
EXAM DESCRIPTION: RAD - Chest Single View - 02/13/2022 5:13 am CLINICAL HISTORY: Pneumonia COMPARISON: Portable 02/12/2022 TECHNIQUE: AP portable chest image was obtained 02/13/2022 5:13 am . FINDINGS: Chronic interstitial lung disease present. Focal opacification in the mid right lung field has not changed from prior imaging. No new mass or consolidations seen. Heart and vasculature are normal. No measurable pleural effusion and no pneumothorax. No acute bony abnormality seen. No acute aortic findings suspected. Final written report was delayed due to malfunctioning travel insurance agent module. IMPRESSION: Focal right midlung field opacification superimposed on chronic bilateral interstitial l travis disease. Chest findings are stable from prior imaging.
--- NOTE | 2022-02-13 09:47 | RAD REPORT ---
EXAM DESCRIPTION: RAD - FLUORO-GUIDE FOR BRONCH UPT1HR - 02/13/2022 8:25 am FINDINGS: There are 3 portable C-arm views submitted from a fluoroscopic assisted right lung field b ronchoscopy. Fluoro time was 222.1 seconds
[2022-02-13] MEDS: Meropenem 1,000 MG in NA CHLORIDE 0.9% 100 ML IV SCH ×2 (10:31→21:20)
[2022-02-13] MEDS: LIDOCAINE 4% PATCH TOP SCH (10:32)
[2022-02-13] MEDS: predniSONE 10 MG TAB PO SCH (10:35)
[2022-02-13] MEDS: ASPIRIN EC 81 MG TAB PO SCH (10:36)
[2022-02-13] MEDS: AMLODIPINE 10 MG TAB PO SCH (10:36)
[2022-02-13] MEDS: METFORMIN ER 500 MG TAB PO SCH ×2 (10:36→18:26)
[2022-02-13] MEDS: LOSARTAN POTASSIUM 50 MG TABLET PO SCH (10:37)
[2022-02-13] MEDS: METOPROLOL TAR 50 MG TAB PO SCH ×2 (10:37→21:19)
[2022-02-13] MEDS: FLUOXETINE 20 MG CAP PO SCH (10:38)
[2022-02-13] MEDS: PREGABALIN 150 MG CAP PO SCH ×2 (10:38→21:18)
[2022-02-13] MEDS: FUROSEMIDE 20 MG/ 2ML VIAL IV SCH ×2 (10:38→21:20)
--- NOTE | 2022-02-13 16:06 | EKG ---
Test Date: 2022-02-12 Test Time: 08:53:00 Advertising Account Manager: Syl LIM MEASUREMENT RESULTS: Intervals: Rate: 101 [place]: 150 QRSD: 64 QT: 348 QTc: 451 [place]: P: 81 [place]: 150 QRS: 62 T: 86 INTERPRETIVE STATEMENTS: Sinus tachycardia Otherwise normal ECG Compared to ECG 02/10/2022 05:23:44 No significant changes Electronically Signed On 02-13-22 16:04:03 NURSERY TEACHER by Eliazar Bergeron
[2022-02-13] MEDS: HOME MED 1 EA UNK (Insulin Glargine/Lixisenatide [Soliqua 100 Unit-33 Mcg/Ml Pen] 3 ML Ins SQ SCH (16:45)
--- NOTE | 2022-02-13 18:15 | P.PN ---
Subjective Date of Service: 02/13/22 Primary Care Provider: Salvador Chief Complaint: Multilobar Pneumonia Subjective: Improving FEVER FOR 3 DAYS, COUGH FOR 3 DAYS. FELL AT HOME AND HURT LOWER BACK. SHE LOOKS BETTER BUT STILL COUGHS CONSTANTLY AND HAS DYSPNEA. SHE MAY BE LITTLE BETTER. SHE HAD EPISODE OF SVT AFTER I CAME TO OFFICE. I GVAE HER DOSE OF LORPESSOR IV AND THEN LOPRESSORB BID BY DR COTA. SHE STILL COUGHS. PAIN MAY BE SOME BETTER. Physical Examination - Vital Signs Temperature: 97.2 F Blood Pressure: 111/52 Pulse: 72 Respirations: 18 Pulse Ox (%): 92 - Physical Exam General: Oriented x3, Mild distress, Obese HEENT: Atraumatic, PERRLA, EOMI Neck: Supple, JVD not distended Respiratory: Clear to auscultation bilaterally, Normal air movement Cardiovascular: Regular rate/rhythm, Normal S1 S2 Gastrointestinal: Normal bowel sounds, No tenderness Musculoskeletal: No tenderness Integumentary: No rashes Neurological: Normal speech, Normal tone, Normal affect Lymphatics: No axilla or inguinal lymphadenopathy - Studies Medications List Reviewed: Yes Assessment And Plan - Current Problems (Diagnosis) (1) Dyspnea Current Visit: Yes Status: Chronic Plan: MOST LIKELY PULMONARY IN ORIGIN CHECK BNP ECHO TO RULE OUT OTHER CAUSES. WE CAN'T DO CT ANGIO ALLERGIC TO DYE D DIMER IS 600 THAT IS NOT UNUSUALY FOR SOMEONE WITH INFLAMMATION. CONTINUE LOVENOX SC CHRONIC COUGH CHRONIC WHEEZES DR. HERNANDEZ ON CASE. CAN'T GIVE MUCH STEROIDS ALREADY HAS HIGH GLUCOSE. BRONCHOSCOPY DONE , NOT MUCH DETECTED. Qualifiers: Dyspnea type: orthopnea Qualified Code(s): R06.01 - Orthopnea (2) Pneumonia Current Visit: Yes Status: Acute Qualifiers: Pneumonia type: due to unspecified organism Laterality: bilateral Lung location: unspecified part of lung Qualified Code(s): J18.9 - Pneumonia, unspecified organism (3) Diabetes mellitus type 2 Current Visit: Yes Status: Chronic (4) SVT (supraventricular tachycardia) Current Visit: Yes Status: Acute Plan: STOP ALBUTEROL CHANGE TO XOPENEX LOPRESSOR BID. (5) Chronic cough Current Visit: Yes Status: Chronic Plan: START PROTONIX BID. SHE MAY HAVE CHRONIC GERD. - Plan BACTERIAL PNEUMONIA FAILED ORAL ABX FOR LAST TWO ADMISSIONS. PNEUMONIA IS NEW FROM THEN. SPUTUM CS MERREM IV HAS BEEN ON RECENT AUGMENTIN AND LEVAQUIN. HIGH RISK COPD PATIENT. Physician Review: Patient Assessed, Agree with Above Assessment and Plan
[2022-02-13] MEDS: DIPHENHYDRAMINE 25 MG TAB/CAP PO SCH (21:18)
[2022-02-13] MEDS: ACETAMINOPHEN 500 MG TAB PO SCH (21:18)
[2022-02-13] MEDS: TRAMADOL HCL 50 MG TAB PO PRN (21:19)
[2022-02-13] MEDS: ATORVASTATIN 20 MG TAB PO SCH (21:19)
[2022-02-14] MEDS: LEVALBUTEROL 0.63 MG/3 ML NEB NEB SCH ×4 (01:30→19:50)
[2022-02-14] MEDS: IPRATROPIUM BROM 0.5MG/2.5ML NEB SCH ×4 (01:30→19:50)
[2022-02-14] MEDS: PROMETHAZINE-DM 5 ML OSYR PO SCH ×4 (02:55→21:12)
[2022-02-14 06:58] LABS: Potassium 4.1 mmol/L (3.5-5.1)
[2022-02-14] MEDS: INSULIN -REGULAR HUMAN 50 UNIT/0.5 ML ML SQ SCH ×4 (07:30→21:14)
[2022-02-14] MEDS: ARFORMOTEROL TARTRATE 15 MCG/2 ML VIAL.NEB NEB SCH ×2 (08:30→19:50)
[2022-02-14] MEDS: GUAIFENESIN 600 MG SA TAB PO PRN (09:13)
[2022-02-14] MEDS: ASPIRIN EC 81 MG TAB PO SCH (09:13)
[2022-02-14] MEDS: PANTOPRAZOLE 40MG TABLET PO SCH ×2 (09:13→15:41)
[2022-02-14] MEDS: FLUOXETINE 20 MG CAP PO SCH (09:14)
[2022-02-14] MEDS: predniSONE 10 MG TAB PO SCH (09:14)
[2022-02-14] MEDS: AMLODIPINE 10 MG TAB PO SCH (09:14)
[2022-02-14] MEDS: LOSARTAN POTASSIUM 50 MG TABLET PO SCH (09:14)
[2022-02-14] MEDS: METOPROLOL TAR 50 MG TAB PO SCH ×2 (09:15→21:13)
[2022-02-14] MEDS: METFORMIN ER 500 MG TAB PO SCH ×2 (09:15→16:20)
[2022-02-14] MEDS: PREGABALIN 150 MG CAP PO SCH ×2 (09:15→21:12)
[2022-02-14] MEDS: Meropenem 1,000 MG in NA CHLORIDE 0.9% 100 ML IV SCH ×2 (09:16→21:11)
[2022-02-14] MEDS: FUROSEMIDE 20 MG/ 2ML VIAL IV SCH ×2 (09:16→21:12)
[2022-02-14] MEDS: LIDOCAINE 4% PATCH TOP SCH (09:17)
[2022-02-14] MEDS: HOME MED 1 EA UNK (Insulin Glargine/Lixisenatide [Soliqua 100 Unit-33 Mcg/Ml Pen] 3 ML Ins SQ SCH (09:28)
--- NOTE | 2022-02-14 10:15 | RAD REPORT ---
EXAM DESCRIPTION: RAD - Chest Single View - 02/14/2022 10:01 am CLINICAL HISTORY: PNA COMPARISON: Chest Single View dated 02/13/2022; Chest Single View dated 02/13/2022; Chest Single View da feliz 02/12/2022; Chest Single View dated 02/11/2022; Chest Abd Pelvis Wo Con dated 01/12/2022 FINDINGS: Lines: None. Lungs: Right mid lung consolidative airspace disease is not appreciably changed. Pleural: No significant pleural effusions or pneumothorax. Cardiac: The heart size is within normal limits. Mediastinum: Within normal limits. Bones: No acute fractures. Other: None IMPRESSION: Airspace disease in the right mid lung is not significantly changed.
[2022-02-14] MEDS: ACETAMINOPHEN 500 MG TAB PO PRN (12:00)
[2022-02-14] MEDS: DIPHENHYDRAMINE 25 MG TAB/CAP PO SCH (21:12)
[2022-02-14] MEDS: ACETAMINOPHEN 500 MG TAB PO SCH (21:13)
[2022-02-14] MEDS: ATORVASTATIN 20 MG TAB PO SCH (21:13)
--- NOTE | 2022-02-14 21:32 | P.PN ---
Subjective Date of Service: 02/14/22 Primary Care Provider: Salvador Chief Complaint: Multilobar Pneumonia Subjective: Improving FEVER FOR 3 DAYS, COUGH FOR 3 DAYS. FELL AT HOME AND HURT LOWER BACK. SHE LOOKS BETTER BUT STILL COUGHS CONSTANTLY AND HAS DYSPNEA. SHE MAY BE LITTLE BETTER. SHE HAD EPISODE OF SVT AFTER I CAME TO OFFICE. I GVAE HER DOSE OF LORPESSOR IV AND THEN LOPRESSORB BID BY DR COTA. SHE STILL COUGHS. PAIN MAY BE SOME BETTER. CHRONIC WHEEZES AND COUGHING. BRONCHOSCOPY DID NOT REVEAL MUCH. Physical Examination - Vital Signs Temperature: 96.7 F Blood Pressure: 121/90 Pulse: 62 Respirations: 18 Pulse Ox (%): 95 - Physical Exam General: Oriented x3, Mild distress, Obese HEENT: Atraumatic, PERRLA, EOMI Neck: Supple, JVD not distended Respiratory: Diminished, Expiratory wheezes Cardiovascular: Regular rate/rhythm, Normal S1 S2 Gastrointestinal: Normal bowel sounds, No tenderness Musculoskeletal: No tenderness Integumentary: No rashes Neurological: Normal speech, Normal tone, Normal affect Lymphatics: No axilla or inguinal lymphadenopathy - Studies Medications List Reviewed: Yes Assessment And Plan - Current Problems (Diagnosis) (1) Dyspnea Current Visit: Yes Status: Chronic Plan: MOST LIKELY PULMONARY IN ORIGIN CHECK BNP ECHO TO RULE OUT OTHER CAUSES. WE CAN'T DO CT ANGIO ALLERGIC TO DYE D DIMER IS 600 THAT IS NOT UNUSUALY FOR SOMEONE WITH INFLAMMATION. CONTINUE LOVENOX SC CHRONIC COUGH CHRONIC WHEEZES DR. HERNANDEZ ON CASE. CAN'T GIVE MUCH STEROIDS ALREADY HAS HIGH GLUCOSE. BRONCHOSCOPY DONE , NOT MUCH DETECTED. Qualifiers: Dyspnea type: orthopnea Qualified Code(s): R06.01 - Orthopnea (2) Pneumonia Current Visit: Yes Status: Acute Plan: ETIOLOGY IS UNCLEAR. CXR LOOKS THE SAME BRONCHOSCOPY DID NOT REVEAL MUCH NO TUMOR. MINIMAL PUS.THIS COULD BE VIRAL PNEUMONAI ALSO. Qualifiers: Pneumonia type: due to unspecified organism Laterality: bilateral Lung location: unspecified part of lung Qualified Code(s): J18.9 - Pneumonia, unspecified organism (3) Diabetes mellitus type 2 Current Visit: Yes Status: Chronic (4) SVT (supraventricular tachycardia) Current Visit: Yes Status: Acute Plan: STOP ALBUTEROL CHANGE TO XOPENEX LOPRESSOR BID. (5) Chronic cough Current Visit: Yes Status: Chronic Plan: START PROTONIX BID. SHE MAY HAVE CHRONIC GERD. - Plan BACTERIAL PNEUMONIA FAILED ORAL ABX FOR LAST TWO ADMISSIONS. PNEUMONIA IS NEW FROM THEN. SPUTUM CS MERREM IV HAS BEEN ON RECENT AUGMENTIN AND LEVAQUIN. HIGH RISK COPD PATIENT. Physician Review: Patient Assessed, Agree with Above Assessment and Plan
[2022-02-15] MEDS: LEVALBUTEROL 0.63 MG/3 ML NEB NEB SCH ×4 (02:00→19:35)
[2022-02-15] MEDS: IPRATROPIUM BROM 0.5MG/2.5ML NEB SCH ×4 (02:00→19:35)
[2022-02-15] MEDS: PROMETHAZINE-DM 5 ML OSYR PO SCH ×4 (02:52→20:30)
[2022-02-15] MEDS: INSULIN -REGULAR HUMAN 50 UNIT/0.5 ML ML SQ SCH ×4 (07:30→20:30)
[2022-02-15] MEDS: ARFORMOTEROL TARTRATE 15 MCG/2 ML VIAL.NEB NEB SCH ×2 (08:05→19:35)
[2022-02-15] MEDS: LIDOCAINE 4% PATCH TOP SCH (08:44)
[2022-02-15] MEDS: FLUOXETINE 20 MG CAP PO SCH (08:45)
[2022-02-15] MEDS: AZITHROMYCIN IV 500 MG in NA CHLORIDE 0.9% 250 ML IVPB SCH (08:45)
[2022-02-15] MEDS: PREGABALIN 150 MG CAP PO SCH ×2 (08:45→20:27)
[2022-02-15] MEDS: METOPROLOL TAR 50 MG TAB PO SCH ×2 (08:46→20:28)
[2022-02-15] MEDS: METFORMIN ER 500 MG TAB PO SCH ×2 (08:46→16:45)
[2022-02-15] MEDS: predniSONE 10 MG TAB PO SCH (08:46)
[2022-02-15] MEDS: ASPIRIN EC 81 MG TAB PO SCH (08:46)
[2022-02-15] MEDS: LOSARTAN POTASSIUM 50 MG TABLET PO SCH (08:46)
[2022-02-15] MEDS: AMLODIPINE 10 MG TAB PO SCH (08:46)
[2022-02-15] MEDS: FUROSEMIDE 20 MG/ 2ML VIAL IV SCH (08:46)
[2022-02-15] MEDS: PANTOPRAZOLE 40MG TABLET PO SCH ×2 (08:46→16:45)
[2022-02-15] MEDS: HOME MED 1 EA UNK (Insulin Glargine/Lixisenatide [Soliqua 100 Unit-33 Mcg/Ml Pen] 3 ML Ins SQ SCH (08:47)
[2022-02-15] MEDS: TRAMADOL HCL 50 MG TAB PO PRN ×3 (09:04→22:41)
[2022-02-15] MEDS ORDERED: PANTOPRAZOLE 40MG TABLET PO SCH (09:30)
--- NOTE | 2022-02-15 09:35 | P.PN ---
Subjective Date of Service: 02/15/22 Primary Care Provider: Salvador Chief Complaint: Persistent cough Patient continues to complain of a persistent cough also low back pain coloscopy is so far nondiagnostic chest x-ray appearances have improved cultures so far normal respiratory belkis Review of Systems General: Weakness Respiratory: Cough, Shortness of Breath Physical Examination - Vital Signs Temperature: 97.4 F Blood Pressure: 140/73 Pulse: 67 Respirations: 18 Pulse Ox (%): 97 - Physical Exam General: Alert, Moderate distress Respiratory: Clear to auscultation bilaterally, Diminished Cardiovascular: No edema, Regular rate/rhythm, Normal S1 S2 - Studies Microbiology Data (last 24 hrs): 02/10/22 04:45 Blood - Blood Aerobic Blood Culture - Final No growth in 5 days. 02/10/22 04:45 Blood - Blood Anaerobic Blood Culture - Final No growth in 5 days. Medications List Reviewed: Yes Assessment And Plan - Current Problems (Diagnosis) (1) Chronic cough Current Visit: Yes Status: Chronic Plan: Patient now is chronic persistent cough bronchoscopy is nondiagnostic may be induced by an REJI inhibitor losartan has been discontinued add antiprotozoal possibility of reflux induced cough chest x-ray has improved patient is on bronchodilators and globe changer to p.o. Zithromax for anti-inflammatory purposes patient has a normal white count currently on prednisone 10 mg a day vital signs oxygenation satisfactory DC IV Lasix reduce dose of prednisone normal echocardiogram Physician Review: Patient Assessed, Agree with Above Assessment and Plan
[2022-02-15] MEDS: HYDROCODONE/CHLORPHEN 5 ML/OSYR PO SCH ×2 (11:20→20:30)
[2022-02-15] MEDS: ACETAMINOPHEN 500 MG TAB PO SCH (20:27)
[2022-02-15] MEDS: DIPHENHYDRAMINE 25 MG TAB/CAP PO SCH (20:27)
[2022-02-15] MEDS: ATORVASTATIN 20 MG TAB PO SCH (20:28)
--- NOTE | 2022-02-15 21:09 | P.PN ---
Subjective Date of Service: 02/15/22 Primary Care Provider: Salvador Chief Complaint: Persistent cough Subjective: No new changes FEVER FOR 3 DAYS, COUGH FOR 3 DAYS. FELL AT HOME AND HURT LOWER BACK. SHE LOOKS BETTER BUT STILL COUGHS CONSTANTLY AND HAS DYSPNEA. SHE MAY BE LITTLE BETTER. SHE HAD EPISODE OF SVT AFTER I CAME TO OFFICE. I GVAE HER DOSE OF LORPESSOR IV AND THEN LOPRESSORB BID BY DR COTA. SHE STILL COUGHS. PAIN MAY BE SOME BETTER. CHRONIC WHEEZES AND COUGHING. BRONCHOSCOPY DID NOT REVEAL MUCH. SHE SLEEPS WELL BUT SOON WE ENTER THE ROOM SHE STARTS COUGHING. DR. HERNANDEZ SAYS THE SAME. Review of Systems 10-point ROS is otherwise unremarkable Respiratory: Cough, Shortness of Breath Physical Examination - Vital Signs Temperature: 96.9 F Blood Pressure: 138/64 Pulse: 65 Respirations: 18 Pulse Ox (%): 93 - Physical Exam General: Oriented x3, Mild distress, Obese HEENT: Atraumatic, PERRLA, EOMI Neck: Supple, JVD not distended Respiratory: Expiratory wheezes Cardiovascular: Regular rate/rhythm, Normal S1 S2 Gastrointestinal: Normal bowel sounds, No tenderness Musculoskeletal: No tenderness Integumentary: No rashes Neurological: Normal speech, Normal tone, Normal affect Lymphatics: No axilla or inguinal lymphadenopathy - Studies Microbiology Data (last 24 hrs): 02/10/22 04:45 Blood - Blood Aerobic Blood Culture - Final No growth in 5 days. 02/10/22 04:45 Blood - Blood Anaerobic Blood Culture - Final No growth in 5 days. Medications List Reviewed: Yes Assessment And Plan - Current Problems (Diagnosis) (1) Dyspnea Current Visit: Yes Status: Chronic Plan: MOST LIKELY PULMONARY IN ORIGIN CHECK BNP ECHO TO RULE OUT OTHER CAUSES. WE CAN'T DO CT ANGIO ALLERGIC TO DYE D DIMER IS 600 THAT IS NOT UNUSUALY FOR SOMEONE WITH INFLAMMATION. CONTINUE LOVENOX SC CHRONIC COUGH CHRONIC WHEEZES DR. HERNANDEZ ON CASE. CAN'T GIVE MUCH STEROIDS ALREADY HAS HIGH GLUCOSE. BRONCHOSCOPY DONE , NOT MUCH DETECTED. ADD ZITHROMAX CHECK MYCOPLASMA, LEGIONELLA TITERS I SUSPECT SECONDARY GAINS SHE DOES NOT WANT TO GET OUT OF BED TO WALK OR DO PT. Qualifiers: Dyspnea type: orthopnea Qualified Code(s): R06.01 - Orthopnea (2) Pneumonia Current Visit: Yes Status: Resolved Plan: ETIOLOGY IS UNCLEAR. CXR LOOKS THE SAME BRONCHOSCOPY DID NOT REVEAL MUCH NO TUMOR. MINIMAL PUS.THIS COULD BE VIRAL PNEUMONAI ALSO. Qualifiers: Pneumonia type: due to unspecified organism Laterality: bilateral Lung location: unspecified part of lung Qualified Code(s): J18.9 - Pneumonia, unspecified organism (3) Diabetes mellitus type 2 Current Visit: Yes Status: Chronic (4) SVT (supraventricular tachycardia) Current Visit: Yes Status: Acute Plan: STOP ALBUTEROL CHANGE TO XOPENEX LOPRESSOR BID. (5) Chronic cough Current Visit: Yes Status: Chronic Plan: START PROTONIX BID. SHE MAY HAVE CHRONIC GERD. - Plan BACTERIAL PNEUMONIA FAILED ORAL ABX FOR LAST TWO ADMISSIONS. PNEUMONIA IS NEW FROM THEN. SPUTUM CS MERREM IV HAS BEEN ON RECENT AUGMENTIN AND LEVAQUIN. HIGH RISK COPD PATIENT. Physician Review: Patient Assessed, Agree with Above Assessment and Plan
[2022-02-15 21:33] LABS: Arterial Blood Carboxyhemoglob 0.9 % (0-1.5); Blood Gas Oxyhemoglobin 83.4 % (94-97); Blood O2 Saturation 85.5 % (92-98.5)
[2022-02-15] MEDS: GUAIFENESIN 600 MG SA TAB PO PRN (22:40)
[2022-02-15] MEDS: POLYETHYL GLY 3350 17 GM/DOSE PO PRN (22:40)
[2022-02-16] MEDS: IPRATROPIUM BROM 0.5MG/2.5ML NEB SCH ×3 (01:05→14:00)
[2022-02-16] MEDS: LEVALBUTEROL 0.63 MG/3 ML NEB NEB SCH ×3 (01:05→14:00)
[2022-02-16] MEDS: PROMETHAZINE-DM 5 ML OSYR PO SCH ×4 (03:18→21:21)
[2022-02-16 04:34] LABS: Absolute Lymphocytes (CBC) 4.8 K/uL (0.7-4.9); Hematocrit 40.3 % (36.0-45.0); Lymphocytes % 45.2 % (15.3-44.8); MCV 88.6 fL (80-100); MPV 8.7 fL (7.6-11.3); RBC Red Blood Cell Count 4.55 M/uL (3.86-4.86)
[2022-02-16 05:10] LABS: BUN Blood Urea Nitrogen 32 mg/dL (7-18); Bicarbonate 32 mmol/L (21-32); Glomerular Filtration Rate 91 ml/min (=/>90); Glucose Level 80 mg/dL (74-106); HDL Cholesterol 47 mg/dL (40-60); LDL, Direct 91 mg/dL (100-129); Magnesium 1.9 mg/dL (1.6-2.4); Sodium Level 139 mmol/L (136-145)
[2022-02-16 05:43] LABS: Blood Morphology Comment NOT SEEN (NOT SEEN); Platelet Estimate ADEQ
[2022-02-16] MEDS: INSULIN -REGULAR HUMAN 50 UNIT/0.5 ML ML SQ SCH ×4 (07:30→21:20)
[2022-02-16] MEDS: PANTOPRAZOLE 40MG TABLET PO SCH ×2 (08:57→16:40)
[2022-02-16] MEDS: AZITHROMYCIN IV 500 MG in NA CHLORIDE 0.9% 250 ML IVPB SCH (08:58)
[2022-02-16] MEDS: AMLODIPINE 10 MG TAB PO SCH (08:58)
[2022-02-16] MEDS: PREGABALIN 150 MG CAP PO SCH ×2 (08:58→21:17)
[2022-02-16] MEDS: LIDOCAINE 4% PATCH TOP SCH (08:58)
[2022-02-16] MEDS: FLUOXETINE 20 MG CAP PO SCH (08:59)
[2022-02-16] MEDS: ASPIRIN EC 81 MG TAB PO SCH (08:59)
[2022-02-16] MEDS: predniSONE 10 MG TAB PO SCH (08:59)
[2022-02-16] MEDS: HYDROCODONE/CHLORPHEN 5 ML/OSYR PO SCH ×2 (08:59→21:21)
[2022-02-16] MEDS: METOPROLOL TAR 50 MG TAB PO SCH ×2 (08:59→21:19)
[2022-02-16] MEDS: LACTOSE-REDUCED FOOD 330 ML LIQUID PO SCH (09:00)
[2022-02-16] MEDS: HOME MED 1 EA UNK (Insulin Glargine/Lixisenatide [Soliqua 100 Unit-33 Mcg/Ml Pen] 3 ML Ins SQ SCH (09:00)
[2022-02-16] MEDS: ARFORMOTEROL TARTRATE 15 MCG/2 ML VIAL.NEB NEB SCH ×2 (09:52→19:55)
[2022-02-16 10:00] LABS: Arterial Blood Carboxyhemoglob 0.9 % (0-1.5); Blood Gas Oxyhemoglobin 90.5 % (94-97); Blood O2 Saturation 92.7 % (92-98.5)
[2022-02-16] MEDS: BUDESONIDE 0.5 MG/2 ML NEB NEB SCH ×2 (10:06→19:55)
--- NOTE | 2022-02-16 10:07 | P.PN ---
Subjective Date of Service: 02/16/22 Primary Care Provider: Salvador Chief Complaint: Persistent cough Patient states she is doing better still coughing ending of some back pain ambulating Review of Systems General: Weakness Respiratory: Shortness of Breath Physical Examination - Vital Signs Temperature: 96.9 F Blood Pressure: 121/75 Pulse: 60 Respirations: 18 Pulse Ox (%): 93 - Physical Exam General: Alert, Oriented x3, Mild distress Respiratory: Expiratory wheezes Cardiovascular: No edema, Regular rate/rhythm, Normal S1 S2 - Studies Microbiology Data (last 24 hrs): 02/10/22 04:45 Blood - Blood Aerobic Blood Culture - Final No growth in 5 days. 02/10/22 04:45 Blood - Blood Anaerobic Blood Culture - Final No growth in 5 days. Medications List Reviewed: Yes Assessment And Plan - Current Problems (Diagnosis) (1) Chronic cough Current Visit: Yes Status: Chronic Plan: Patient is improving no evidence of infection changed to p.o. macrolide patient has underlying hypoxemia hypercarbia respiratory failure new with bronchodilators patient is on low-dose prednisone add nebulized be done as will benefit from outpatient Trelegy or Breztri labs chemistries all reviewed cultures negative Physician Review: Patient Assessed, Agree with Above Assessment and Plan
[2022-02-16] MEDS: TRAMADOL HCL 50 MG TAB PO PRN (10:46)
[2022-02-16] MEDS: ONDANSETRON 4 MG/2 ML VIAL IV PRN (11:53)
[2022-02-16] MEDS: METFORMIN ER 500 MG TAB PO SCH ×2 (12:00→16:40)
[2022-02-16] MEDS: IPRATROPIUM BROM 0.5MG/2.5ML NEB PRN ×2 (14:32→19:55)
[2022-02-16] MEDS: ENOXAPARIN 40 MG/0.4 ML SQ SCH (16:40)
--- NOTE | 2022-02-16 19:58 | P.PN ---
Subjective Date of Service: 02/16/22 Primary Care Provider: Salvador Chief Complaint: COUGH, DYSPNEA, WHEEZING , WEAKNESS, BACK PAIN. Subjective: No new changes FEVER FOR 3 DAYS, COUGH FOR 3 DAYS. FELL AT HOME AND HURT LOWER BACK. SHE LOOKS BETTER BUT STILL COUGHS CONSTANTLY AND HAS DYSPNEA. SHE MAY BE LITTLE BETTER. SHE HAD EPISODE OF SVT AFTER I CAME TO OFFICE. I GVAE HER DOSE OF LORPESSOR IV AND THEN LOPRESSORB BID BY DR COTA. SHE STILL COUGHS. PAIN MAY BE SOME BETTER. CHRONIC WHEEZES AND COUGHING. BRONCHOSCOPY DID NOT REVEAL MUCH. SHE SLEEPS WELL BUT SOON WE ENTER THE ROOM SHE STARTS COUGHING. DR. HERNANDEZ SAYS THE SAME. SHE IS GETTING WEAKER, NOT ABLE TO WALK MUCH. SHE COUGHS OFTEN AND NO MEDS HAVE BEEN ABLE TO STOP IT. DR. HERNANDEZ DOES NOT HAVE ANY FURTHER THERAPY FOR HER. Review of Systems 10-point ROS is otherwise unremarkable General: Weakness Physical Examination - Vital Signs Temperature: 97.6 F Blood Pressure: 109/53 Pulse: 65 Respirations: 18 Pulse Ox (%): 93 - Physical Exam General: Oriented x3, Mild distress, Obese HEENT: Atraumatic, PERRLA, EOMI Neck: Supple, JVD not distended Respiratory: Expiratory wheezes (UPPER) Cardiovascular: Regular rate/rhythm, Normal S1 S2 Gastrointestinal: Normal bowel sounds, No tenderness Musculoskeletal: No tenderness Integumentary: No rashes Neurological: Normal speech, Normal tone, Normal affect Lymphatics: No axilla or inguinal lymphadenopathy - Studies Medications List Reviewed: Yes Assessment And Plan - Current Problems (Diagnosis) (1) Dyspnea Current Visit: Yes Status: Chronic Plan: MOST LIKELY PULMONARY IN ORIGIN CHECK BNP ECHO TO RULE OUT OTHER CAUSES. WE CAN'T DO CT ANGIO ALLERGIC TO DYE D DIMER IS 600 THAT IS NOT UNUSUALY FOR SOMEONE WITH INFLAMMATION. CONTINUE LOVENOX SC CHRONIC COUGH CHRONIC WHEEZES DR. HERNANDEZ ON CASE. CAN'T GIVE MUCH STEROIDS ALREADY HAS HIGH GLUCOSE. BRONCHOSCOPY DONE , NOT MUCH DETECTED. ADD ZITHROMAX CHECK MYCOPLASMA, LEGIONELLA TITERS I SUSPECT SECONDARY GAINS SHE DOES NOT WANT TO GET OUT OF BED TO WALK OR DO PT. I DID ABG, SHE HAS HYPERCAPNEA I REDUCED OXYGEN AND ADVISED BIPAP THIS HELPED BUT SYMPTOMS CONTINUE. CONTINUE PT. CONT HOME OR NH FOR HER. Qualifiers: Dyspnea type: orthopnea Qualified Code(s): R06.01 - Orthopnea (2) Pneumonia Current Visit: Yes Status: Resolved Plan: ETIOLOGY IS UNCLEAR. CXR LOOKS THE SAME BRONCHOSCOPY DID NOT REVEAL MUCH NO TUMOR. MINIMAL PUS.THIS COULD BE VIRAL PNEUMONAI ALSO. IMPROVED BUT STILL WHEEZES AND IS WEAK. Qualifiers: Pneumonia type: due to unspecified organism Laterality: bilateral Lung location: unspecified part of lung Qualified Code(s): J18.9 - Pneumonia, unspecified organism (3) Diabetes mellitus type 2 Current Visit: Yes Status: Chronic (4) SVT (supraventricular tachycardia) Current Visit: Yes Status: Acute Plan: STOP ALBUTEROL CHANGE TO XOPENEX LOPRESSOR BID. (5) Chronic cough Current Visit: Yes Status: Chronic Plan: START PROTONIX BID. SHE MAY HAVE CHRONIC GERD. - Plan BACTERIAL PNEUMONIA FAILED ORAL ABX FOR LAST TWO ADMISSIONS. PNEUMONIA IS NEW FROM THEN. SPUTUM CS MERREM IV HAS BEEN ON RECENT AUGMENTIN AND LEVAQUIN. HIGH RISK COPD PATIENT. Physician Review: Patient Assessed, Agree with Above Assessment and Plan
[2022-02-16] MEDS: ACETAMINOPHEN 500 MG TAB PO SCH (21:18)
[2022-02-16] MEDS: ATORVASTATIN 20 MG TAB PO SCH (21:19)
[2022-02-16] MEDS: DIPHENHYDRAMINE 25 MG TAB/CAP PO SCH (21:20)
[2022-02-16] MEDS: POLYETHYL GLY 3350 17 GM/DOSE PO PRN (21:35)
[2022-02-17] MEDS: TRAMADOL HCL 50 MG TAB PO PRN (03:54)
[2022-02-17] MEDS: PROMETHAZINE-DM 5 ML OSYR PO SCH ×4 (03:54→20:03)
[2022-02-17 04:36] LABS: Absolute Lymphocytes (CBC) 4.8 K/uL (0.7-4.9); Hematocrit 38.8 % (36.0-45.0); Lymphocytes % 43.1 % (15.3-44.8); MCV 88.9 fL (80-100); MPV 8.9 fL (7.6-11.3); RBC Red Blood Cell Count 4.36 M/uL (3.86-4.86)
[2022-02-17 04:52] LABS: Potassium 4.7 mmol/L (3.5-5.1)
[2022-02-17] MEDS: INSULIN -REGULAR HUMAN 50 UNIT/0.5 ML ML SQ SCH ×4 (07:30→20:46)
[2022-02-17] MEDS: BUDESONIDE 0.5 MG/2 ML NEB NEB SCH ×2 (08:41→20:15)
[2022-02-17] MEDS: ARFORMOTEROL TARTRATE 15 MCG/2 ML VIAL.NEB NEB SCH ×2 (08:41→20:15)
[2022-02-17] MEDS: LIDOCAINE 4% PATCH TOP SCH (09:01)
[2022-02-17] MEDS: AZITHROMYCIN IV 500 MG in NA CHLORIDE 0.9% 250 ML IVPB SCH (09:02)
[2022-02-17] MEDS: HYDROCODONE/CHLORPHEN 5 ML/OSYR PO SCH (09:04)
[2022-02-17] MEDS: PREGABALIN 150 MG CAP PO SCH ×2 (09:05→20:02)
[2022-02-17] MEDS: METFORMIN ER 500 MG TAB PO SCH ×2 (09:05→16:42)
[2022-02-17] MEDS: AMLODIPINE 10 MG TAB PO SCH (09:06)
[2022-02-17] MEDS: predniSONE 10 MG TAB PO SCH (09:06)
[2022-02-17] MEDS: ASPIRIN EC 81 MG TAB PO SCH (09:06)
[2022-02-17] MEDS: FLUOXETINE 20 MG CAP PO SCH (09:07)
[2022-02-17] MEDS: PANTOPRAZOLE 40MG TABLET PO SCH ×2 (09:07→15:45)
[2022-02-17] MEDS: METOPROLOL TAR 50 MG TAB PO SCH ×2 (09:08→20:02)
[2022-02-17] MEDS: HOME MED 1 EA UNK (Insulin Glargine/Lixisenatide [Soliqua 100 Unit-33 Mcg/Ml Pen] 3 ML Ins SQ SCH (09:44)
[2022-02-17] MEDS: LACTOSE-REDUCED FOOD 330 ML LIQUID PO SCH (09:45)
--- NOTE | 2022-02-17 10:55 | P.PN ---
Subjective Date of Service: 02/17/22 Primary Care Provider: Salvador Chief Complaint: COUGH, DYSPNEA, WHEEZING , WEAKNESS, BACK PAIN. Subjective: Improving FEVER FOR 3 DAYS, COUGH FOR 3 DAYS. FELL AT HOME AND HURT LOWER BACK. SHE LOOKS BETTER BUT STILL COUGHS CONSTANTLY AND HAS DYSPNEA. SHE MAY BE LITTLE BETTER. SHE HAD EPISODE OF SVT AFTER I CAME TO OFFICE. I GVAE HER DOSE OF LORPESSOR IV AND THEN LOPRESSORB BID BY DR COTA. SHE STILL COUGHS. PAIN MAY BE SOME BETTER. CHRONIC WHEEZES AND COUGHING. BRONCHOSCOPY DID NOT REVEAL MUCH. SHE SLEEPS WELL BUT SOON WE ENTER THE ROOM SHE STARTS COUGHING. DR. HERNANDEZ SAYS THE SAME. SHE IS GETTING WEAKER, NOT ABLE TO WALK MUCH. SHE COUGHS OFTEN AND NO MEDS HAVE BEEN ABLE TO STOP IT. DR. HERNANDEZ DOES NOT HAVE ANY FURTHER THERAPY FOR HER. SHE FEELS SOMEBETTER TODAY. BACK PAIN IS MODERATE. SHE IS NOT ABLE TO GO HOME SHE IS ALONE. Physical Examination - Vital Signs Temperature: 97.3 F Blood Pressure: 134/71 Pulse: 59 Respirations: 18 Pulse Ox (%): 96 - Physical Exam General: Oriented x3, Moderate distress, Obese HEENT: Atraumatic, PERRLA, EOMI Neck: Supple, JVD not distended Respiratory: Clear to auscultation bilaterally, Normal air movement Cardiovascular: Regular rate/rhythm, Normal S1 S2 Gastrointestinal: Normal bowel sounds, No tenderness Musculoskeletal: No tenderness Integumentary: No rashes Neurological: Normal speech, Normal tone, Normal affect Lymphatics: No axilla or inguinal lymphadenopathy - Studies Medications List Reviewed: Yes Assessment And Plan - Current Problems (Diagnosis) (1) Dyspnea Current Visit: Yes Status: Chronic Plan: MOST LIKELY PULMONARY IN ORIGIN CHECK BNP ECHO TO RULE OUT OTHER CAUSES. WE CAN'T DO CT ANGIO ALLERGIC TO DYE D DIMER IS 600 THAT IS NOT UNUSUALY FOR SOMEONE WITH INFLAMMATION. CONTINUE LOVENOX SC CHRONIC COUGH CHRONIC WHEEZES DR. HERNANDEZ ON CASE. CAN'T GIVE MUCH STEROIDS ALREADY HAS HIGH GLUCOSE. BRONCHOSCOPY DONE , NOT MUCH DETECTED. ADD ZITHROMAX CHECK MYCOPLASMA, LEGIONELLA TITERS I SUSPECT SECONDARY GAINS SHE DOES NOT WANT TO GET OUT OF BED TO WALK OR DO PT. I DID ABG, SHE HAS HYPERCAPNEA I REDUCED OXYGEN AND ADVISED BIPAP THIS HELPED BUT SYMPTOMS CONTINUE. CONTINUE PT. CONT HOME OR NH FOR HER. SHE NEEDS TO GO TO NH OR [facility] SHE IS NOT ABLE TO TAKE CARE OF. SHE NEEDS PAIN DOCTOR BUT NONE COME HERE. I WILL TRY DR. GARCIA. Qualifiers: Dyspnea type: orthopnea Qualified Code(s): R06.01 - Orthopnea (2) Pneumonia Current Visit: Yes Status: Resolved Plan: ETIOLOGY IS UNCLEAR. CXR LOOKS THE SAME BRONCHOSCOPY DID NOT REVEAL MUCH NO TUMOR. MINIMAL PUS.THIS COULD BE VIRAL PNEUMONAI ALSO. IMPROVED BUT STILL WHEEZES AND IS WEAK. Qualifiers: Pneumonia type: due to unspecified organism Laterality: bilateral Lung location: unspecified part of lung Qualified Code(s): J18.9 - Pneumonia, unspecified organism (3) Diabetes mellitus type 2 Current Visit: Yes Status: Chronic (4) SVT (supraventricular tachycardia) Current Visit: Yes Status: Acute Plan: STOP ALBUTEROL CHANGE TO XOPENEX LOPRESSOR BID. (5) Chronic cough Current Visit: Yes Status: Chronic Plan: START PROTONIX BID. SHE MAY HAVE CHRONIC GERD. - Plan BACTERIAL PNEUMONIA FAILED ORAL ABX FOR LAST TWO ADMISSIONS. PNEUMONIA IS NEW FROM THEN. SPUTUM CS MERREM IV HAS BEEN ON RECENT AUGMENTIN AND LEVAQUIN. HIGH RISK COPD PATIENT. Physician Review: Patient Assessed, Agree with Above Assessment and Plan
[2022-02-17] MEDS ORDERED: FENTANYL 25 MCG/PATCH TD SCH (11:00)
[2022-02-17] MEDS: VITAMIN D 5,000 UNIT CAP PO SCH (12:04)
--- NOTE | 2022-02-17 15:04 | P.CNS ---
Date of Consult: 02/17/22 Reason for Consult: upper airway evaluation Requesting Physician: Jesus Franco V Primary Care Provider: Salvador Chief Complaint: COUGH, DYSPNEA, WHEEZING , WEAKNESS, BACK PAIN. History of Present Illness: The patient is seen in regards to her subacute/chronic cough. The patient reports that around a month prior to admission she began having cough that was initially mild and progressed to moderate and severe. She states the cough seems to come and go but does not completely resolve. She does not know any specific triggers to the cough. She does not feel the cough is specifically worse when eating or drinking. She feels the cough is the same regardless of position such as sitting versus lying down. She does feel she gets sick easily and notes that her son had some viral illness near the beginning of her symptoms. Early in the course, she complains of having some fever up to 102 but that fever resolved and the cough persisted. She does not specifically complain of sore throat though sometimes her throat feels scratchy. She is not ever coughed up any blood. Her cough is sometimes productive of a thick yellow mucus. Other times she feels she needs to cough up some mucus but is unable to, at other times she feels her cough is dry and nonproductive. She complains of some mild hoarse or raspy voice and does feel her voice is raspy today. The cough does not seem to be triggered by speaking that she can tell. The cough may be worse when using her incentive spirometer. She cannot recall the date of her last DTaP vaccine but thinks it was at least several years ago. She has no known sick contacts in regards to pertussis or whooping cough. She does complain of some clear and yellow nasal mucus. She also has a history of some ear problems. Although she does not currently have ear pain, she has had ear pain that seems to come and go. She has longstanding bilateral high-pitched nonpulsatile tinnitus. She has a history of middle ear fluid with infection that has required myringotomy in the past but the dates are at least several years ago and she does not recall her last treating ENT. The patient recalls having issues with coughing during childhood including childhood anemia with treatment using iron injections by her mother at home. She does use home oxygen. The patient states that on the day of her admission, she fell at home and was feeling unsteady and off balance. She did not have any overt spinning or vertigo at that time. She has had some issues with her balance. Due to her back injury and back pain, formal evaluation of her balance was not feasible today. Allergies carbamazepine [From Tegretol] Allergy (Intermediate, Verified 05/17/19 14:46) Hives/Rash Iodinated Contrast Media [IV Dye, Iodine Containing Contrast ] Allergy (Intermediate, Verified 05/17/19 14:46) Hives Home Medications: Aspirin [Aspir-Low] 81 mg PO DAILY 04/30/17 Atorvastatin Calcium [Lipitor*] 20 mg PO BEDTIME tab 06/01/19 Pregabalin [Lyrica] 300 mg PO BID #60 cap 06/01/19 Omeprazole 20 mg PO BID #60 tablet. 04/06/20 Acetaminophen [Tylenol Extra Strength] 1,000 mg PO BEDTIME 12/17/21 Amlodipine [Norvasc*] 10 mg PO DAILY 12/17/21 Diphenhydramine [Benadryl*] 50 mg PO BEDTIME 12/17/21 Fluoxetine HCl [Prozac] 40 mg PO DAILY 12/17/21 Losartan Potassium 100 tab PO DAILY 12/17/21 Metformin ER [Glucophage ER*] 500 mg PO BID 12/17/21 Insulin Glargine/Lixisenatide [Soliqua 100 Unit-33 Mcg/ml Pen] 60 units SQ DAILY 01/13/22 predniSONE [Deltasone*] 20 mg PO DAILY #10 tab 01/18/22 levoFLOXacin [Levaquin*] 500 mg PO BID 02/10/22 - Past Medical/Surgical History Diabetic: Yes -: CVA -: HTN -: TIA -: IDDM -: COPD -: BREAST AND CERVICAL CA -: ANEMIA -: DEPRESSION/ANXIETY -: HEADACHES -: Bladder Suspension sx 4 -: Left Ankle Surgery -: Stomach surgery (ureter sx) -: Breast biopsy -: appy -: hysterectomy Psychosocial/ Personal History: Patient lives at home alone. - Family History Father Medical History: Hypertension, Stroke Mother Medical History: Hypertension, Diabetes - Social History Smoking Status: Current every day smoker Alcohol use: No CD- Drugs: No Caffeine use: Yes Place of Residence: Home Review of Systems ENT: As per HPI Physical Examination Temp Pulse Resp BP Pulse Ox 97.6 F 58 18 104/40 L 97 02/17/22 11:20 02/17/22 11:20 02/17/22 12:03 02/17/22 11:20 02/17/22 12:03 General: Alert, In no apparent distress, Oriented x3, Obese HEENT: Atraumatic, Normocephalic, PERRLA, Other (Oral cavity mildly dry, endentulous. Nasal cannula oxygen in use) Respiratory: Other (Intermittent wet cough followed by short spasms of dry cough intermittently through exam though not constant) Neurological: Normal speech, Other (Gait not assessed. Vocal quality is within normal limits) Imagings Data: I personally reviewed the admission imaging including traumagram from February 2022. The patient does have some mild right-sided maxillary sinusitis. It is difficult to assess the OMC due to slice thickness. She has some significant right septal deviation. The upper airway appears patent other than these findings. At the level of the oropharynx, hypopharynx and larynx, there is no obvious mass or evidence of obstruction. The subglottis and trachea appear of normal caliber with no obvious evidence of stenosis on available imaging including axial, coronal, and sagittal images. CT of the sinuses in January 2022 was also reviewed and reveals mild mucosal thickening in the floor of the maxillary sinus with patent OMC with secondary maxillary ostium raising some concern for mucus recirculation. She also has a asif bullosa of the left middle turbinate with right septal deviation. The mastoid and middle ear cavities appear normal with no evidence of fluid accumulation. Conclusions/Impression: Subacute maxillary sinusitis, septal deviation, left middle turbinate hypertroph y. Chronic nasal cannula use. I recommend saline irrigations for moisturization and humidification of the nasal cavity especially in light of chronic nasal cannula use. Given the patient's recent fall and complaint of back pain, I am uncertain how well she will be able to complete irrigations. Nasal saline spray several times a day would be an alternative. Subacute to chronic cough/exacerbation of chronic cough. I do not see any evidence or symptoms suggestive of upper airway obstruction. The imaging of the subglottis and trachea appear clear and any overt obstructive or anatomic abnorm alities at the level of the larynx would likely have at least been noted by the sales and service specialist during her recent bronchoscopy. I do not see indication for direct laryngoscopy at this time given her recent reassuring bron. I discussed with the patient that the biopsy was returned as negative and there was no evidence of malignancy noted. We discussed that causes of cough can be varied and complicated. It is difficult to determine what degree of her recent cough exacerbations may be due to her underlying sinus issues. We also discussed the possibility of pertussis as a cause of subacute and chronic cough. At this stage, antibiotics for pertussis are unlikely to result in any significant improvement and some patients will have spontaneous improvement over the course of 6 to 12 weeks. Consideration for titers may be considered though it is unlikely to affect the disease course or treatment if positive. Titers for other causes of chronic cough have already been sent and results are pending. Consideration can be made for further outpatient evaluation including nasal endoscopy in the ENT clinic for direct visualization of the sinus outflow track. Otalgia, bilateral and intermittent. Since symptoms are not active and there is no evidence of acute or chronic middle ear disease on imaging today and otoscopic exam is limited due to equipment, I recommend further evaluation as an outpatient Dizziness and unsteadiness. Given the patient's back pain in evaluation today is limited. Based on her history, I do not suspect an otologic cause to her symptoms. Her underlying diabetes, possible peripheral neuropathy and history of stroke all put her at risk for abnormal gait and balance problems. The patient has previously seen Dr. Agrawal and is prescribed Lyrica. Bilateral tinnitus. Audiometric exam may be helpful in assuring hearing loss as a contributing factor her to her tinnitus. We discussed that there is no known pharmacologic or surgical treatment for resolution of tinnitus and a number of medications including Lyrica can have a side effect of tinnitus. The patient expressed understanding and does not seem to be actively interested in audiometric testing. The patient's hearing is grossly intact to conversational levels during her assessment today. Physician Review Additional Text: Time spent reviewing records, interviewing and examining patient, conferring with nursing staff and primary team. Time Spent Managing Pts care (In Minutes): 60
[2022-02-17] MEDS: ENOXAPARIN 40 MG/0.4 ML SQ SCH (16:43)
[2022-02-17] MEDS: ATORVASTATIN 20 MG TAB PO SCH (20:02)
[2022-02-17] MEDS: DIPHENHYDRAMINE 25 MG TAB/CAP PO SCH (20:02)
[2022-02-17] MEDS: ACETAMINOPHEN 500 MG TAB PO SCH (20:02)
[2022-02-18] MEDS: PROMETHAZINE-DM 5 ML OSYR PO SCH ×4 (03:31→22:25)
[2022-02-18 04:15] LABS: Absolute Lymphocytes (CBC) 4.8 K/uL (0.7-4.9); Hematocrit 38.2 % (36.0-45.0); Lymphocytes % 46.2 % (15.3-44.8); MCV 88.9 fL (80-100); MPV 8.8 fL (7.6-11.3)
[2022-02-18 04:36] LABS: Potassium 4.2 mmol/L (3.5-5.1)
[2022-02-18] MEDS: ONDANSETRON 4 MG/2 ML VIAL IV PRN (05:50)
[2022-02-18] MEDS: BENZONATATE 100 MG CAP PO PRN (05:50)
[2022-02-18] MEDS: INSULIN -REGULAR HUMAN 50 UNIT/0.5 ML ML SQ SCH ×4 (07:30→21:00)
[2022-02-18] MEDS: LEVALBUTEROL 0.63 MG/3 ML NEB NEB PRN ×2 (08:50→19:20)
[2022-02-18] MEDS: ARFORMOTEROL TARTRATE 15 MCG/2 ML VIAL.NEB NEB SCH ×2 (08:50→19:20)
[2022-02-18] MEDS: IPRATROPIUM BROM 0.5MG/2.5ML NEB PRN (08:50)
[2022-02-18] MEDS: BUDESONIDE 0.5 MG/2 ML NEB NEB SCH ×2 (08:50→19:20)
[2022-02-18] MEDS ORDERED: BUDESONIDE 0.5 MG/2 ML NEB ONE (08:57)
[2022-02-18] MEDS: LACTOSE-REDUCED FOOD 330 ML LIQUID PO SCH (09:00)
[2022-02-18] MEDS: HOME MED 1 EA UNK (Insulin Glargine/Lixisenatide [Soliqua 100 Unit-33 Mcg/Ml Pen] 3 ML Ins SQ SCH (09:00)
[2022-02-18] MEDS: LIDOCAINE 4% PATCH TOP SCH (09:07)
[2022-02-18] MEDS: METFORMIN ER 500 MG TAB PO SCH ×2 (09:08→16:20)
[2022-02-18] MEDS: AZITHROMYCIN IV 500 MG in NA CHLORIDE 0.9% 250 ML IVPB SCH (09:08)
[2022-02-18] MEDS: PANTOPRAZOLE 40MG TABLET PO SCH ×2 (09:08→16:20)
[2022-02-18] MEDS: VITAMIN D 5,000 UNIT CAP PO SCH (09:08)
[2022-02-18] MEDS: PREGABALIN 150 MG CAP PO SCH ×2 (09:08→22:25)
[2022-02-18] MEDS: METOPROLOL TAR 50 MG TAB PO SCH ×2 (09:08→22:29)
[2022-02-18] MEDS: predniSONE 10 MG TAB PO SCH (09:08)
[2022-02-18] MEDS: ASPIRIN EC 81 MG TAB PO SCH (09:09)
[2022-02-18] MEDS: FLUOXETINE 20 MG CAP PO SCH (09:09)
[2022-02-18] MEDS: AMLODIPINE 10 MG TAB PO SCH (09:09)
[2022-02-18] MEDS: TRAMADOL HCL 50 MG TAB PO PRN ×2 (11:29→17:57)
[2022-02-18] MEDS: ENOXAPARIN 40 MG/0.4 ML SQ SCH (16:20)
--- NOTE | 2022-02-18 17:46 | P.PN ---
Subjective Date of Service: 02/18/22 Primary Care Provider: Salvador Chief Complaint: COUGH, DYSPNEA, WHEEZING , WEAKNESS, BACK PAIN. Subjective: Improving FEVER FOR 3 DAYS, COUGH FOR 3 DAYS. FELL AT HOME AND HURT LOWER BACK. SHE LOOKS BETTER BUT STILL COUGHS CONSTANTLY AND HAS DYSPNEA. SHE MAY BE LITTLE BETTER. SHE HAD EPISODE OF SVT AFTER I CAME TO OFFICE. I GVAE HER DOSE OF LORPESSOR IV AND THEN LOPRESSORB BID BY DR COTA. SHE STILL COUGHS. PAIN MAY BE SOME BETTER. CHRONIC WHEEZES AND COUGHING. BRONCHOSCOPY DID NOT REVEAL MUCH. SHE SLEEPS WELL BUT SOON WE ENTER THE ROOM SHE STARTS COUGHING. DR. HERNANDEZ SAYS THE SAME. SHE IS GETTING WEAKER, NOT ABLE TO WALK MUCH. SHE COUGHS OFTEN AND NO MEDS HAVE BEEN ABLE TO STOP IT. DR. HERNANDEZ DOES NOT HAVE ANY FURTHER THERAPY FOR HER. SHE FEELS SOMEBETTER TODAY. BACK PAIN IS MODERATE. SHE IS NOT ABLE TO GO HOME SHE IS ALONE. SHE SAYS SOME BETTER TODAY STILL IN SEVERE BACK PAIN AND NOT BETTER. STABLE BUT NEEDS PLACEMENT. Physical Examination - Vital Signs Temperature: 98.0 F Blood Pressure: 118/57 Pulse: 60 Respirations: 60 Pulse Ox (%): 92 - Studies Medications List Reviewed: Yes Assessment And Plan - Current Problems (Diagnosis) (1) Dyspnea Current Visit: Yes Status: Chronic Plan: MOST LIKELY PULMONARY IN ORIGIN CHECK BNP ECHO TO RULE OUT OTHER CAUSES. WE CAN'T DO CT ANGIO ALLERGIC TO DYE D DIMER IS 600 THAT IS NOT UNUSUALY FOR SOMEONE WITH INFLAMMATION. CONTINUE LOVENOX SC CHRONIC COUGH CHRONIC WHEEZES DR. HERNANDEZ ON CASE. CAN'T GIVE MUCH STEROIDS ALREADY HAS HIGH GLUCOSE. BRONCHOSCOPY DONE , NOT MUCH DETECTED. ADD ZITHROMAX CHECK MYCOPLASMA, LEGIONELLA TITERS I SUSPECT SECONDARY GAINS SHE DOES NOT WANT TO GET OUT OF BED TO WALK OR DO PT. I DID ABG, SHE HAS HYPERCAPNEA I REDUCED OXYGEN AND ADVISED BIPAP THIS HELPED BUT SYMPTOMS CONTINUE. CONTINUE PT. CONT HOME OR NH FOR HER. SHE NEEDS TO GO TO NH OR SN SHE IS NOT ABLE TO TAKE CARE OF. SHE NEEDS PAIN DOCTOR BUT NONE COME HERE. I WILL TRY DR. GARCIA. Qualifiers: Dyspnea type: orthopnea Qualified Code(s): R06.01 - Orthopnea (2) Pneumonia Current Visit: Yes Status: Resolved Plan: ETIOLOGY IS UNCLEAR. CXR LOOKS THE SAME BRONCHOSCOPY DID NOT REVEAL MUCH NO TUMOR. MINIMAL PUS.THIS COULD BE VIRAL PNEUMONAI ALSO. IMPROVED BUT STILL WHEEZES AND IS WEAK. Qualifiers: Pneumonia type: due to unspecified organism Laterality: bilateral Lung location: unspecified part of lung Qualified Code(s): J18.9 - Pneumonia, unspecified organism (3) Diabetes mellitus type 2 Current Visit: Yes Status: Chronic (4) SVT (supraventricular tachycardia) Current Visit: Yes Status: Acute Plan: STOP ALBUTEROL CHANGE TO XOPENEX LOPRESSOR BID. (5) Chronic cough Current Visit: Yes Status: Chronic Plan: START PROTONIX BID. SHE MAY HAVE CHRONIC GERD. - Plan BACTERIAL PNEUMONIA FAILED ORAL ABX FOR LAST TWO ADMISSIONS. PNEUMONIA IS NEW FROM THEN. SPUTUM CS MERREM IV HAS BEEN ON RECENT AUGMENTIN AND LEVAQUIN. HIGH RISK COPD PATIENT. Physician Review: Patient Assessed, Agree with Above Assessment and Plan
[2022-02-18] MEDS: ACETAMINOPHEN 500 MG TAB PO SCH (22:25)
[2022-02-18] MEDS: ATORVASTATIN 20 MG TAB PO SCH (22:26)
[2022-02-18] MEDS: DIPHENHYDRAMINE 25 MG TAB/CAP PO SCH (22:26)
[2022-02-18] MEDS: POLYETHYL GLY 3350 17 GM/DOSE PO PRN (22:38)
[2022-02-19] MEDS: PROMETHAZINE-DM 5 ML OSYR PO SCH ×3 (03:00→16:18)
[2022-02-19 05:28] LABS: Absolute Lymphocytes (CBC) 4.9 K/uL (0.7-4.9); Hematocrit 39.3 % (36.0-45.0); Lymphocytes % 37.8 % (15.3-44.8); MCV 88.8 fL (80-100); MPV 8.6 fL (7.6-11.3); RBC Red Blood Cell Count 4.42 M/uL (3.86-4.86)
[2022-02-19] MEDS: INSULIN -REGULAR HUMAN 50 UNIT/0.5 ML ML SQ SCH ×3 (07:30→15:41)
[2022-02-19] MEDS: TRAMADOL HCL 50 MG TAB PO PRN (08:03)
[2022-02-19] MEDS: BUDESONIDE 0.5 MG/2 ML NEB NEB SCH (08:55)
[2022-02-19] MEDS: ARFORMOTEROL TARTRATE 15 MCG/2 ML VIAL.NEB NEB SCH (08:55)
[2022-02-19] MEDS: LACTOSE-REDUCED FOOD 330 ML LIQUID PO SCH (09:00)
[2022-02-19] MEDS: HOME MED 1 EA UNK (Insulin Glargine/Lixisenatide [Soliqua 100 Unit-33 Mcg/Ml Pen] 3 ML Ins SQ SCH (09:00)
[2022-02-19] MEDS ORDERED: predniSONE 5 MG TAB PO SCH (09:00)
[2022-02-19] MEDS: METFORMIN ER 500 MG TAB PO SCH ×2 (09:04→16:18)
[2022-02-19] MEDS: LIDOCAINE 4% PATCH TOP SCH (09:04)
[2022-02-19] MEDS: PREGABALIN 150 MG CAP PO SCH (09:04)
[2022-02-19] MEDS: ASPIRIN EC 81 MG TAB PO SCH (09:04)
[2022-02-19] MEDS: AZITHROMYCIN IV 500 MG in NA CHLORIDE 0.9% 250 ML IVPB SCH (09:04)
[2022-02-19] MEDS: FLUOXETINE 20 MG CAP PO SCH (09:04)
[2022-02-19] MEDS: VITAMIN D 5,000 UNIT CAP PO SCH (09:04)
[2022-02-19] MEDS: METOPROLOL TAR 50 MG TAB PO SCH (09:05)
[2022-02-19] MEDS: PANTOPRAZOLE 40MG TABLET PO SCH ×2 (09:06→16:18)
[2022-02-19] MEDS: AMLODIPINE 10 MG TAB PO SCH (09:06)
[2022-02-19 09:55] VITALS: O2SAT 97
--- NOTE | 2022-02-19 14:12 | P.DS ---
Admission Date: 02/10/22 Discharge Date: 02/19/22 Primary Care Provider: Salvador Disposition: ROUTINE DISCHARGE Discharge Condition: FAIR Reason for Admission: COUGH, DYSPNEA, WHEEZING , WEAKNESS, BACK PAIN. - Problems (1) Dyspnea Current Visit: Yes Status: Chronic Qualifiers: Dyspnea type: orthopnea Qualified Code(s): R06.01 - Orthopnea (2) Pneumonia Current Visit: Yes Status: Resolved Qualifiers: Pneumonia type: due to unspecified organism Laterality: bilateral Lung location: unspecified part of lung Qualified Code(s): J18.9 - Pneumonia, unspecified organism (3) Diabetes mellitus type 2 Current Visit: Yes Status: Chronic (4) SVT (supraventricular tachycardia) Current Visit: Yes Status: Acute (5) Chronic cough Current Visit: Yes Status: Chronic Hospital Course: JUSTINA HAS HAD LONG STAY AT [facility] FOR COUGH,BRONCHTIS, ATYPICAL PNEUMONIA, PAIN FROM FALL RELATED BROKEN SPINE. SHE FAILED TO IMPROVE FOR DAYS WITH MEDS BY DR. WRAY AND TX. SHE HAD STEROIDS, NEBS, COUGH MEDS MERREM WITH NO HELP. SHE HAD NO WBC ELEVATION, NO PROCALCTONIN ELEVATION. SHE WAS GIVEN ZITHROMAX AND SHE IMPROVED SOME. HER PAIN CONTINUES. I GAVE HER TRAMADOL AND DURAGESIC PATCH WITH SOME HELP . SHE WILL NEED TO GO TO DR. GARCIA OR OTHER PAIN DOCTORS. SHE HAS NO ONE TO TAKE HER FROM HOME. SHE WILL NOW GO TO [place] TO GET PT AND BACK TO HER BASELINE. [place] DOCTOR WILL TAKE OVER FROM NOW ON. Vital Signs/Physical Exam: Temp Pulse Resp BP Pulse Ox 97.6 F 61 18 102/46 L 95 02/19/22 12:00 02/19/22 12:00 02/19/22 12:00 02/19/22 12:00 02/19/22 12:00 Laboratory Data at Discharge: WBC 12.90 K/uL (4.3-10.9) H 02/19/22 05:12 Hgb 12.7 g/dL (12.0-15.0) 02/19/22 05:12 Hct 39.3 % (36.0-45.0) 02/19/22 05:12 Plt Count 337 K/uL (152-406) 02/19/22 05:12 PT 12.9 SECONDS (9.5-12.5) H 02/10/22 04:27 INR 1.17 02/10/22 04:27 Sodium 137 mmol/L (136-145) 02/19/22 05:12 Potassium 5.0 mmol/L (3.5-5.1) D 02/19/22 05:12 BUN 27 mg/dL (7-18) H 02/19/22 05:12 Creatinine 0.69 mg/dL (0.55-1.02) 02/19/22 05:12 Glucose 134 mg/dL (74-106) H 02/19/22 05:12 Phosphorus 4.0 mg/dL (2.5-4.9) 02/14/22 06:15 Magnesium 1.9 mg/dL (1.6-2.4) 02/16/22 03:36 Total Bilirubin 0.5 mg/dL (0.2-1.0) 02/10/22 04:27 AST 58 U/L (15-37) H 02/10/22 04:27 ALT 40 U/L (13-56) 02/10/22 04:27 Alkaline Phosphatase 97 U/L (45-117) 02/10/22 04:27 Triglycerides 298 mg/dL (<150) H 02/16/22 03:36 Cholesterol 174 mg/dL (<200) 02/16/22 03:36 LDL Cholesterol Direct 91 mg/dL (100-129) L 02/16/22 03:36 HDL Cholesterol 47 mg/dL (40-60) 02/16/22 03:36 Cholesterol/HDL Ratio 3.70 02/16/22 03:36 Home Medications: Aspirin [Aspir-Low] 81 mg PO DAILY 04/30/17 Atorvastatin Calcium [Lipitor*] 20 mg PO BEDTIME tab 06/01/19 Pregabalin [Lyrica] 300 mg PO BID #60 cap 06/01/19 Omeprazole 20 mg PO BID #60 tablet. 04/06/20 Acetaminophen [Tylenol Extra Strength] 1,000 mg PO BEDTIME 12/17/21 Amlodipine [Norvasc*] 10 mg PO DAILY 12/17/21 Diphenhydramine [Benadryl*] 50 mg PO BEDTIME 12/17/21 Fluoxetine HCl [Prozac] 40 mg PO DAILY 12/17/21 Losartan Potassium 100 tab PO DAILY 12/17/21 Metformin ER [Glucophage ER*] 500 mg PO BID 12/17/21 Insulin Glargine/Lixisenatide [Soliqua 100 Unit-33 Mcg/ml Pen] 60 units SQ DAILY 01/13/22 predniSONE [Deltasone*] 20 mg PO DAILY #10 tab 01/18/22 Arformoterol Tartrate [Brovana] 15 mcg NEB BIDRESP vial.neb 02/19/22 Benzonatate [Tessalon Perle*] 200 mg PO TID PRN cap 02/19/22 Budesonide [Pulmicort*] 0.5 mg NEB BIDRESP amp 02/19/22 Cholecalciferol (Vitamin D3) [Vitamin D 5,000 IU Cap*] 5,000 unit PO DAILY cap 02/19/22 Insulin -Regular Human [Novolin -R*] See Protocol SQ ACHS ml 02/19/22 Ipratropium Neb [Atrovent*] 0.5 mg NEB [id number] PRN amp 02/19/22 Lactose-Reduced Food [Ensure Max Protein] 330 ml PO DAILY can 02/19/22 Levalbuterol [Xopenex*] 0.63 mg NEB [id number] PRN vial 02/19/22 Lidocaine 4% Patch [Lidoderm 5% Patch*] 1 patch TOP DAILY patch 02/19/22 Metoprolol Tartrate [Lopressor*] 50 mg PO BID tab 02/19/22 Pantoprazole [Protonix Tab*] 40 mg PO BIDAC tab 02/19/22 Polyethyl Gly 3350 [Glycolax*] 17 gm PO DAILY PRN udbot 02/19/22 Pregabalin [Lyrica] 300 mg PO BID cap 02/19/22 Promethazine/Dextrometh Syr [Phenergan Dm Oral Syrup*] 5 ml PO Q6H osyr 02/19/22 traMADol HCL [Ultram*] 50 mg PO Q6H PRN tab 02/19/22 Followup: Unknown,U [Primary Care Provider] -
[2022-02-19 16:16] VITALS: BP 121/59; TEMP 98
[2022-02-19] MEDS: ENOXAPARIN 40 MG/0.4 ML SQ SCH (16:18)
--- NOTE | 2022-02-19 19:04 | CON ---
Date of Consultation: 02/12/2022 Reason For Consultation: SVT. History Of Present Illness: The patient is 76 years old, was admitted on 02/10/2022 with pneumonia. She has a history of hypertension, diabetes, COPD, dyslipidemia, chronic diastolic congestive heart failure with normal ejection fraction in January 2022. Was not having any cardiac symptoms, but cecilia t in an episode of SVT that was terminated with using IV beta-vamshi. P.o. beta-vamshi was started . She is in sinus rhythm now and has no cardiac complaint. Past Medical History: As stated above. Allergies: INCLUDE IODINE AND TEGRETOL. Review of Systems: Negative. Social History: Negative. Family History: Negative. Physical Examination: Vital Signs: Stable, afebrile, sinus rhythm. HEENT: Negative. Neck: Supple with no bruit. Chest: Reveals crackles on the right base. Cardiac: Revealed S4 gallops. Regular rhythm and rate. Abdomen: Obese, but benign. Extremities: Revealed trace edema. Diagnostic Data: As stated earlier. Impression And Plan: Supraventricular tachycardia, new onset. We will put her on metoprolol 25 b.i. d., give her IV metoprolol as needed. We will see how she does on that regimen for now. As far as h er other problems include hypertension, diabetes, dyslipidemia, chronic obstructive pulmonary disease , and her pneumonia, she is on appropriate therapy by Dr. Franco. I will continue to follow her as [place]. DANAE/VIJAY Voice ID: [id number] Report ID: [id number]
== END 2022-02-19 18:36 | DRG 194 ==
LOC: ER 02:44 → ERHOLD 04:52 → 4TH 13:07
PROVIDERS: ADMIT Internal Medicine; ATTEND Internal Medicine
PROC: 0B9C8ZX Drainage of Right Upper Lung Lobe, Via Natural or Artificial Opening Endoscopic, Diagnostic (ICD-10-PCS; 2022-02-13)
PROC: 0BB48ZX Excision of Right Upper Lobe Bronchus, Via Natural or Artificial Opening Endoscopic, Diagnostic (ICD-10-PCS; principal; 2022-02-13 07:30)
PROC: 5A09457 Assistance with Respiratory Ventilation, 24-96 Consecutive Hours, Continuous Positive Airway Pressure (ICD-10-PCS; 2022-02-15)
DX: J15.9 Unspecified bacterial pneumonia (principal); I47.1 Supraventricular tachycardia; J44.0 Chronic obstructive pulmonary disease with (acute) lower respiratory infection; I50.32 Chronic diastolic (congestive) heart failure; I11.0 Hypertensive heart disease with heart failure; E78.5 Hyperlipidemia, unspecified; I48.0 Paroxysmal atrial fibrillation; J34.3 Hypertrophy of nasal turbinates; J32.0 Chronic maxillary sinusitis; E11.40 Type 2 diabetes mellitus with diabetic neuropathy, unspecified; F17.200 Nicotine dependence, unspecified, uncomplicated; R06.01 Orthopnea; R05.3 Chronic cough; Z60.2 Problems related to living alone; Z88.8 Allergy status to other drugs, medicaments and biological substances; Z79.4 Long term (current) use of insulin; Z85.3 Personal history of malignant neoplasm of breast; Z86.73 Personal history of transient ischemic attack (TIA), and cerebral infarction without residual deficits; Z79.84 Long term (current) use of oral hypoglycemic drugs; Z79.82 Long term (current) use of aspirin; Z85.41 Personal history of malignant neoplasm of cervix uteri; Z99.81 Dependence on supplemental oxygen; Z79.52 Long term (current) use of systemic steroids; Z90.49 Acquired absence of other specified parts of digestive tract; Z91.041 Radiographic dye allergy status; Z90.710 Acquired absence of both cervix and uterus; Z79.899 Other long term (current) drug therapy; Z20.822 Contact with and (suspected) exposure to COVID-19; W18.30XA Fall on same level, unspecified, initial encounter; Y93.9 Activity, unspecified; Y92.099 Unspecified place in other non-institutional residence as the place of occurrence of the external cause
CPT/HCPCS: 0240U; 36415; 70450; 71045; 71250; 72125; 72148; 76000; 80048; 80061; 80076; 80202; 82306; 82607; 82805; 82947; 83036; 83605; 83735; 83880; 84100; 84145; 84484; 85025; 85379; 85610; 86645; 86713; 86738; 87015; 87040; 87070; 87102; 87116; 87206; 88108; 88305; 88312; 93005; 94010; 94640; 94660; 94760; 96365; 96366; 96367; 96368; 96375; 97110; 97116; 97161; 97530; 99285; A4216; J0456; J1650; J1815; J1940; J2001; J2185; J2370; J2405; J2704; J2920; J2930; J3370; J3475; J7030; J7050; J7512; J7605; J7613; J7614; J7644; U0003

== ENCOUNTER 2022-08-13 10:30 | Emergency (ER) | payer OTHER ==
--- OUTSIDE RECORDS SUMMARY | 2022-08-13 10:33 | XMS REPORT | Continuity of Care Document ---
:1945 Author Organization [facility] t Address [address] [place] [address]. [address] [place] [id number] Care Team Providers Name Role Phone Jesus Franco Attending Clinician Unavailable Shivani Anguiano Attending Clinician Unavailable Michael_Filiberto Attending Clinician Unavailable Michael Admitting Clinician Unavailable Payers Payer Name Policy Type Policy Number Effective Date Expiration Date [place] [id number] [id number] Common HEALTHCARE [facility] [id number] HEALTHCARE Problems Condition Condition Condition Status Onset Resolution Last Treating Co mments Source Name Details Category Date Date Treatment Clinician Date 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 00:00: Practic 00 e Administra Administra Problem Active 2020-02 [facility] tion of tion of 1-09 Family influenza Influenza 00:00: Prac tic vaccine Vaccine 00 e 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 5-10 Family mellitus Mellitus 00:00: Practi c 00 e History of History of Problem Active [place] SARS-CoV-2 SARS-CoV-2 5-10 [facility] 00:00: Practic 00 e Neuropathy Neuropathy [...] 00 e Senile Senile Problem Active 2017-02 [facility] osteoporos Osteoporos 2-13 Fa mary is [...] 00 e Chronic Chronic Problem Active 2016-02 [facility]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 00:00: Pr actic disorder, Disorder, 00 e single Single episode Episode Chronic Chronic Problem Active 2016-02 [facility] pain Pain 2-14 Family 00:00: Practic 00 e Essential Essential Problem Active 2016-02 Rika francisco javier hypertensi Hypertensi 2-14 Fa mary on on 00:00: Practic 00 e Chronic Chronic Problem Active 2016-02 [facility] obstructiv Obstructiv 2-14 mary e lung e Lung 00:00: Practic disease Disease 00 e [id number] Boil Problem [facility] [id number] Dysuria Problem [facility] [id number] Menopausal Problem Com [facility] vaginal [facility] Allergies, Adverse Reactions, Alerts Allergy Allergy Status Severity Reaction(s) Onset Inactive Treating Comm ents Source Name Type Date Date Clinician Iodine Allergy Active [facility] to Family substan Practic e e Tegretol Allergy Active [facility] Practic e e 463 Drug Active nausea,diff Commo n allergy breathing [facility] carbamaz carbamaz Active hives Common epine epine [facility] Social History Social Habit Start Date Stop Date Quantity Comments Source Sex Assigned At Com [facility] History of Tobacco Use Co mmon [facility] Smoking Status Start Date Stop Date Source Never Smoker [facility] Medications Ordered Filled Start Stop Current Ordering Indication Dosage Frequency Signature Comments Components Source Medication Medication Date Date Medication? Clinician (SIG) Name Name Bupivicaine Bupivicaine 2022-0 No 5mg [facility] [place] 8[facility]22 [facility] 00:00: - [facility] 00 [facility] Kenalog Kenalog 2021-0 No 40mg Common (Triamcinol (Triamcinol 8-22 S pirit one) one) 00:00: - [facility] 00 [facility] Bupivicaine Bupivicaine 2-0 No 5mg [facility] [place] 8-22 [facility] 00:00: - [facility] 00 [facility] Kenalog Kenalog 2021-0 No 40mg Common (Triamcinol (Triamcinol 8-22 S pirit one) one) 00:00: - [facility]I 00 [facility] Bupivicaine Bupivicaine 2-0 No 5mg [facility] [place] 8-22 [facility] 00:00: - [facility] 00 [facility] Kenalog Kenalog 2021-0 No 40mg Common (Triamcinol (Triamcinol 8-22 S pirit one) one) 00:00: - [facility]I 00 [facility] Tylenol Tylenol No Tylenol Lantus Lantus No Lantus SoloStar SoloStar SoloStar amLODIPine amLODIPine No 1{table QD amLODIPine Besylate 10 Besylate 10 t} Besylate MG MG 10 MG Atorvastati Atorvastati No Atorvastat n Calcium n Calcium in Calcium Losartan Losartan No 1{table QD Losartan Potassium Potassium t} Potassium 100 MG 100 MG 100 MG Docusate Docusate No Docusate Sodium-[place] Sodium-[place] Sodium-Herman nthranol nthranol anthranol Aspirin 81 Aspirin [...] SoloStar SoloStar SoloStar Docusate Docusate No Docusate Sodium-[place] Sodium-[place] Sodium-Herman nthranol nthranol anthranol Lyrica Lyrica No [...] MG 100 MG Docusate Docusate No Docusate Sodium-[place] Sodium-[place] Sodium-Herman nthranol nthranol anthranol Aspirin 81 Aspirin [...] QD PROzac 40 MG MG le} MG acetaminoph acetaminoph No 2capsul Q6H acetaminop [facility] en 500 mg en 500 mg e(s) hen 500 mg Family capsule capsule capsule Practi c Take 2 Take 2 Take 2 e capsules capsules capsules every 6 every 6 every 6 hours by hours by hours by oral route oral route oral route as needed. as needed. as needed. Adult Adult No 1 Q1D Adult [facility] Aspirin Aspirin Aspirin Family Regimen 81 Regimen 81 Regimen 81 Practic mg mg mg e tablet,helen tablet,helen tablet,del yed release yed release ayed Take 1 Take 1 release tablet tablet Take 1 every day every day tablet by oral by oral every day route in route in by oral the the route in morning. morning. the morning. amlodipine amlodipine No 1 Q1D amlodipine [facility] 5 mg tablet 5 mg tablet 5 mg F amily Take 1 Take 1 tablet Practic tablet tablet Take 1 e every day every day tablet by oral by oral every day route in route in by oral the the route in morning. morning. the morning. atorvastati atorvastati No atorvastat [facility] n 20 mg n 20 mg [...] No 1needle Q1D Comfort EZ [place] Pen [place] Pen [place] (s) Pen F amily 32 gauge x 32 gauge x [place] 32 Practic 06/25" Take 06/25" Take gauge x e 1 needle 1 needle 06/25" Take every day every day 1 needle by miscell. by miscell. every day route as route as by directed. directed. miscell. route as directed. diphenhydra diphenhydra No 1capsul Q8H diphenhydr [facility] mine 25 mg mine 25 mg e(s) amine 25 Family capsule capsule mg capsule Pra ctic Take 1 Take 1 Take 1 e capsule capsule capsule every 8 every 8 every 8 hours by hours by hours by oral route oral route oral route as as as directed. directed. directed. fluoxetine fluoxetine No 1capsul Q1D fluoxetine [facility] 40 mg 40 mg e(s) 40 mg Family capsule capsule capsule Practi c Take 1 Take 1 Take 1 e capsule capsule capsule every day every day every day by oral by oral by oral route at route at route at bedtime. bedtime. bedtime. ipratropium ipratropium No 2.5mL Q6H ipratropiu [facility] bromide bromide m bromide Fami ly [...] directed. metformin metformin No 2 BID metformin [facility] ER 500 mg ER 500 mg ER [...] days. omeprazole omeprazole No 1 Q1D omeprazole [facility] 20 mg 20 mg 20 mg [...] evening MG _meal} Soliqua Soliqua No Soliqua Immunizations Ordered Immunization Filled Immunization Date Status Commen ts Source Name Name influenza, high-dose, influenza, high-dose, 2020-12-19 Completed [facility] quadrivalent quadrivalent 12:00:38 Practice Non-US Vaccine Non-US Vaccine 2020-09-[address] [facility] COVID-19 PS COVID-19 PS 00:00:00 Practice (EpiVacCorona) (EpiVacCorona) COVID-19, mRNA, COVID-19, mRNA, 2020-08-10 Completed [facility] LNP-S, PF, 100 LNP-S, PF, 100 00:00:00 Practi ce mcg/0.5 mL dose mcg/0.5 mL dose (Moderna) (Moderna) pneumococcal pneumococcal 2018-02-10 Completed [facility] mary polysaccharide PPV23 polysaccharide PPV23 00:00:00 Practice influenza, influenza, 2018-02-10 Completed [facility] injectable, injectable, 00:00:00 Practice quadrivalent quadrivalent Vital Signs Vital Name Observation Time Observation Value Comments Source height 2021-11-12 13:15:00 62 [in_i] [facility] weight 2021-11-12 13:15:00 205.4 [lb_av] [facility] temperature 2021-11-12 13:15:00 97.3 [degF] [facility] bmi 2021-11-12 13:15:00 37.56 kg/m2 [facility] blood pressure 2021-11-12 13:15:00 146 mm[Hg] [facility] - systolic [facility] blood pressure 2021-11-12 13:15:00 86 mm[Hg] [facility] - diastolic [facility] height 2021-10-01 13:30:00 62 [in_i] Common [facility] weight 2021-10-01 13:30:00 198.5 [lb_av] [facility] temperature 2021-10-01 13:30:00 97.3 [degF] [facility] bmi 2021-10-01 13:30:00 36.3 kg/m2 [facility] blood pressure 2021-10-01 13:30:00 128 mm[Hg] [facility] - systolic [facility] blood pressure 2021-10-01 13:30:00 74 mm[Hg] [facility] - diastolic [facility] BP Diastolic 2021-03-21 00:00:00 76 mm[Hg] [facility] Height 2021-03-21 00:00:00 62 [in_i] [facility] BMI (Body Mass Index) 2021-03-21 00:00:00 35.7 kg/m2 [facility] BP Systolic 2021-03-21 00:00:00 140 mm[Hg] [facility] Body Weight 2021-03-21 00:00:00 195 [lb_av] [facility] BP Diastolic 2020-12-19 00:00:00 77 mm[Hg] [facility] Height 2020-12-19 00:00:00 62 [in_i] [facility] BMI (Body Mass Index) 2020-12-19 00:00:00 36.1 kg/m2 [facility] BP Systolic 2020-12-19 00:00:00 135 mm[Hg] [facility] Body Weight 2020-12-19 00:00:00 197.4 [lb_av] [facility] BP Diastolic 2020-09-22 00:00:00 57 mm[Hg] [facility] Height 2020-09-22 00:00:00 62 [in_i] [facility] BMI (Body Mass Index) 2020-09-22 00:00:00 36.2 kg/m2 [facility] BP Systolic 2020-09-22 00:00:00 124 mm[Hg] [facility] Practice Body Weight 2020-09-22 00:00:00 198 [lb_av] [facility] Practice BP Diastolic 2020-09-11 00:00:00 79 mm[Hg] [facility] Height 2020-09-11 00:00:00 62 [in_i] [facility] [...] 00:00:00 [facility] Laparoscopic 2019-04-30 [facility]00 [facility] Procedure on Kidney [facility] Fany ly Practice Procedure on Bladder [facility] vidhi Practice Operation on Cervix [facility] michael Practice Breast Surgery [facility] Hysterectomy (Total) [facility] Practice Plan of Care Planned Activity Planned Date Details Comments Source Diagnostic Test 2021-03-21 glucose, fingerstick, Rika lemuse Family Pending 00:00:00 blood [code = Practice glucose, fingerstick, blood] Diagnostic Test 2021-03-21 hemoglobin A1C, [facility] Katlyn lamas Pending 00:00:00 fingerstick [code = Practice hemoglobin A1C, fingerstick] Encounters Start End Encounter Admission Attending Care Care Encounter Source Date/Time Date/Time Type Type Clinicians Facility Department ID 2022-03-25 Outpatient Salvador, [facility] [id number] Common 16:58:00 Jesus [id number] [facility] 2022-03-11 Outpatient Salvador, [facility] [id number] Common 10:48:00 Jesus [id number] [facility] 2021-10-01 Outpatient Salvador, [facility] [id number] Common 13:17:00 Jesus [id number] [facility] 2021-09-18 Outpatient Annmarie [facility] [id number] Common 14:32:00 Shivani [id number] [facility] 2021-11-12 2021-11-12 OFFICE [facility] [id number] Co mmon 00:00:00 00:00:00 VISIT [facility] PT CHI LEVEL 4 [facility] 2021-10-01 2021-10-01 OFFICE [facility] [id number] Co mmon 00:00:00 00:00:00 VISIT [facility] PT LEVEL 4 [facility] 2021-03-23 2021-03-23 Outpatient Daniel_T VFP P [id number] 9-20 [facility] 10:25:00 10:25:00 [id number] Family Practic e 2021-03-21 2021-03-21 Yuri Michael_T VFP [place] - [id number] [facility] 00:00:00 00:00:00 [facility] [id number] Ramsey Chaudhry - Marcus vera MD: [id number] DUANE_KELVIN_Nestor curry [address], [place] [address] , Ph. 2021-03-14 2021-03-14 Outpatient Daniel_T VFP P [id number] 9-20 [facility] 03:48:00 03:48:00 [id number] Family Practic e 2020-12-22 2020-12-22 Outpatient Daniel_T VFP VFP [id number] 20 [facility] 01:15:00 01:15:00 [id number] Family Practic e 2020-12-21 2020-12-21 Outpatient Daniel_T VFP VFP [id number] 20 [facility] 10:26:00 10:26:00 [id number] Family Practic e 2020-12-19 2020-12-19 Yuri Daniel_T VFP [place] - [id number] 0 [facility] 00:00:00 00:00:00 [facility] [id number] Family RodriguezRamsey MD: [id number] Angie curry [address], [address], [place] [address] , Ph. 2020-12-12 2020-12-12 Outpatient Daniel_T VFP VFP [id number] 10-30 [facility] 11:08:00 11:08:00 [id number] Family Practic e 2020-09-26 2020-09-26 Outpatient Daniel_T VFP VFP [id number] 10-30 [facility] 05:04:00 05:04:00 [id number] Family Practic e 2020-09-22 2020-09-22 Yuri Daniel_T VFP [place] - [id number] [facility] 00:00:00 00:00:00 [facility] [id number] Family RodriguezRamsey MD: [id number] Angie curry [address], [address], [place] [address] , Ph. 2020-09-14 2020-09-14 Outpatient Daniel_T VFP VFP [id number] 10-30 [facility] 03:01:00 03:01:00 [id number] Family Practic e 2020-09-11 2020-09-11 Yuri Daniel_T VFP [place] - [id number] 0 [facility] 00:00:00 00:00:00 [facility] [id number] Family RodriguezRamsey MD: [id number] Angie curry [address], [address], [place] [address] , Ph. 2020-07-28 2020-07-28 Outpatient Daniel_T VFP VFP [id number] [facility] 01:29:00 01:29:00 [id number] Family Practic e 2020-06-21 2020-06-21 Outpatient Daniel_T VFP VFP [id number] [facility] 06:47:00 06:47:00 [id number] Family Practic e 2020-06-19 2020-06-19 Yuri Daniel_T VFP [place] - [id number] 0 [facility] 00:00:00 00:00:00 [facility] [id number] Ramsey Rodriguez - Marcus vera MD: [id number] Angie curry [address] [facility] [address], [place] [address] , Ph. 2020-03-20 2020-03-20 Outpatient Daniel_T VFP VFP [id number] 20 [facility] 09:49:00 09:49:00 Family Practic e 2019-11-12 2019-11-12 Outpatient Daniel_T VFP VFP [id number] [facility] 06:54:00 06:54:00 [id number] Family Practic e 2019-11-09 2019-11-09 Yuri Daniel_T VFP [place] - [id number] 0 [facility] 00:00:00 00:00:00 [facility] [id number] Ramsey Rodriguez MD: [id number] Иван curry Shadow [address] [address] , Ph. 2019-10-27 2019-10-27 Outpatient Daniel_T VFP VFP [id number] [facility] 10:48:00 10:48:00 [id number] Family Practic e Results Test Description Test Time Test Comments Results Result Comments Source Hemoglobin A1c measurement device panel 2021-03-21 10:07:47 Test Item Value Reference Range Interpretation Comme nts Hemoglobin A1C Fingerstick: (test code = Hemoglobin A1C Fingerstick :) 6.9 [facility] [Mass/volume] in Capillary [id number] 10:04:25 Test Item Value Reference Range Interpretation Comments Blood Glucose: mg/dl (test code = Blood 112 Glucose: mg/dl) [facility] [id number] 11:02:48 Test Item Value Reference Range Interpretation Comments Hemoglobin A1C Fingerstick: (test code 7.2 = Hemoglobin A1C Fingerstick:) [facility] [Mass/volume] in Capillary [id number] 10:55:53 Test Item Value Reference Range Interpretation Comments Blood Glucose: mg/dl (test code = Blood 247 Glucose: mg/dl) [facility]
[2022-08-13] MEDS ORDERED: TENECTEPLASE 50 MG/10 ML VIAL IV ONE (10:57)
--- NOTE | 2022-08-13 11:00 | RAD REPORT ---
EXAM DESCRIPTION: CT - Ct Stroke Brain Wo Cont - 08/13/2022 10:51 am CLINICAL HISTORY: Right sided weakness COMPARISON: 2019 TECHNIQUE: Computed axial tomography of the head was obtained. All CT scans are performed using dose optimization technique as appropriate and may include automated exposure control or mA/KV adjustment according to patient size. FINDINGS: An intracranial bleed is not seen . The ventricles are normal in caliber. No extra-axial fluid collection is noted. Small low-density left basal ganglia unchanged may indicate an old lacunar infarction Moderate ethmoid and mild maxillary sinusitis IMPRESSION: No acute intracranial abnormality is seen. If patient's symptoms persist MRI of the bra in would be recommended SJoel of the emergency room was notified at 10:45 a.m. August 23, 2022
--- NOTE | 2022-08-13 11:01 | ER ---
Nurse's Notes [facility] [place] Name: Kiley Ortega Age: 77 yrs Sex: Female : 1945 Arrival Date: 08/13/2022 Time: 10:30 Bed 3 Private MD: Jesus Franco V Diagnosis: acute CVA Presentation: 08/13 10:30 Chief complaint: Patient's son or daughter states: Saw mother this morning at about nj1 07:30am, she was her normal self. At 9:30am his told him that she looked "doped", he went to check on her and give her insulin shot, "she was not making sense, it would take her a while to answer, not really making sense." He states he also noted her face drooping on the right side. Not on blood thinners, patient states she takes aspirin. 10:30 Coronavirus screen: Vaccine status: Patient reports receiving the 2nd dose of the covid nj1 vaccine. Ebola Screen: Patient denies travel to an Ebola-affected area in the 21 days before illness onset. An acute neurological deficit is present. The charge nurse has been notified. Initial Sepsis Screen: Does the patient meet any 2 criteria? No. Patient's initial sepsis screen is negative. Does the patient have a suspected source of infection? No. Patient's initial sepsis screen is negative. Risk Assessment: Do you want to hurt yourself or someone else? Patient reports no desire to harm self or others. Onset of symptoms was August 13, 2022 at 09:30. 10:30 Method Of Arrival: Ambulatory nj1 10:30 Acuity: SHELLEY 2 nj1 10:36 Note CODE STROKE activation at 1036. Dr Malone at bedside. nj1 11:02 Pre-hospital glucose is not applicable to this patient. nj1 11:02 Note BS 150. mi1 Triage Assessment: 11:38 The onset of the patients symptoms was August 13, 2022 at 09:30. General: Appears in no db apparent distress. Behavior is calm. 11:38 Neuro: Reports headache. db Stroke Activation: Symptom onset < 3 hours Physician: Stroke Attending; Name: ; Notified At: ; Arrived At: Physician: Chief Stroke Resident; Name: ; Notified At: ; Arrived At: Physician: Stroke Resident; Name: ; Notified At: ; Arrived At: Physician: ED Attending; Name: ; Notified At: 10:36; Arrived At: 10:36 Physician: ED Resident; Name: ; Notified At: ; Arrived At: Historical: - Allergies: 10:39 Iodinated Contrast Media - IV Dye; iw 10:39 Tegretol; iw 10:39 trelegy; iw - PMHx: 10:39 Hypertension; breast cancer-right side; COPD; Diabetes - NIDDM; Myopathy; neuropathy; iw cervical cancer; TIA; Kidney stone; - PSHx: 10:39 Total abdominal hysterectomy; iw - Immunization history:: Client reports receiving the 2nd dose of the Covid vaccine. - Social history:: Smoking status: Patient denies any tobacco usage or history of. - Family history:: not pertinent. Screenin:48 [facility] ED Fall Risk Assessment (Adult) History of falling in the last 3 months, db including since admission Yes- single mechanical fall (1 pt) Confusion or Disorientation Yes (5 pts) Intoxicated or Sedated No (0 pts) Impaired Gait Yes (1 pt) Mobility Assist Device Used No (0 pt) Altered Elimination No (0 pt) Score/Fall Risk Level 3 or more points = High Risk Oriented to surroundings, Maintained a safe environment. Abuse screen: Denies threats or abuse. Denies injuries from another. Nutritional screening: No deficits noted. Tuberculosis screening: No symptoms or risk factors identified. Assessment: 10:35 Pain: Complains of pain in head. Neuro: Level of Consciousness is awake, alert, db confused, Oriented to Speech is slurred, with expressive aphasia noted, slight aphasia. 10:36 Reassessment: Code Stroke called. iw 10:40 TNKase (Tenecteplase) Screening: Indications: Definite evidence of stroke, ischemic, db embolic, or hypertensive: Yes. Treatment will start within 4.5 hours onset of symptoms: Yes. No evidence of intracranial hemorrhage or CT of head and no evidence of peripheral hemorrhage or recent CVA: Yes. Consent for thrombolytic therapy: Yes. 10:48 Reassessment: Radiology reports MRI is healthcare consultant, radiology notified to call in MRI for jl7 pt. 10:49 Reassessment: Dr. Malone gave VO to cancel MRI, Radiology notified. jl7 10:58 VAN Scoring: Arm Drift: Severe drift Visual Disturbance: No visual disturbance noted. db Aphasia: Expressive aphasia noted. Provider notified of +VAN scoring. Neglect: No neglect noted. 11:00 [place] Swallow Protocol. Reassessment: swallow scale deferred due to patient unable to db follow commands. 11:15 Reassessment: Patient appears in no apparent distress at this time. Patient and/or db family updated on plan of care and expected duration. Pain level reassessed. Patient states feeling better. Patient states symptoms have improved. 11:26 Reassessment: Report given to YUNIOR Ravi at [facility]. db 11:58 Reassessment: Report given to interventional Radiology. db Vital Signs: 10:30 Pulse 69; Resp 18; Pulse Ox 96% on R/A; Height 5 ft. 0 in. ; nj1 10:45 BP 99 / 48; Weight 104 kg (M); db 10:50 Weight 104 kg (M); iw 10:50 BP 121 / 80; Pulse 67; Resp 18; Pulse Ox 97% on R/A; db 11:00 BP 125 / 58; Pulse 64; Resp 18; Pulse Ox 97% on R/A; db 11:15 BP 132 / 46; Pulse 64; Resp 18; Temp 98; Pulse Ox 97% on R/A; db 10:45 Body Mass Index 44.78 (104.00 kg, 152.4 cm) db Vitals: 10:50 Cardiac Rhythm Assessment Regular Sinus rhythm. db NIH Stroke Scale Scores: 10:35 NIHSS Score: 12 db 11:15 NIHSS Score: 10 db 11:19 NIHSS Score: 10 rt ED Course: 10:31 Patient arrived in ED. mr 10:31 Jesus Franco MD is Private Physician. mr 10:32 Aly Malone MD is Attending Physician. rt 10:50 CT Stroke Brain w/o Contrast In Process Unspecified. EDMS 10:55 Inserted saline lock: 22 gauge in left forearm, using aseptic technique. iw 11:02 Triage completed. nj1 11:07 Arm band placed on right wrist. nj1 11:14 Kristel Morales RN is Primary Nurse. db 11:28 Stroke CXR 1 View In Process Unspecified. EDMS 11:38 No provider procedures requiring assistance completed. Patient transferred, IV remains db in place. 11:38 Missed attempt(s): 20 gauge in right in left antecubital area. db 11:38 Patient has correct armband on for positive identification. Bed in low position. Call db light in reach. Side rails up X2. Administered Medications: 10:58 Drug: TNK FOR STROKE - Tenecteplase IV 0.25 mg/kg {Co-Signature: iw (ioana Johnson RN).} Route: IV; Rate: per protocol; Site: left forearm; 11:43 Follow up: Response: No adverse reaction; IV Status: Completed infusion; IV Intake: 5ml db 11:30 Drug: MethylPrednisoLONE IVP 125 mg Route: IVP; Site: left forearm; db 11:35 Follow up: Response: No adverse reaction db 11:30 Drug: diphenhydrAMINE IVP 50 mg Route: IVP; Site: left forearm; db 11:35 Follow up: Response: No adverse reaction db 11:30 Drug: Famotidine IVP 20 mg Route: IVP; Site: left forearm; db 11:36 Follow up: Response: No adverse reaction db Medication: 11:38 VIS not applicable for this client. db Point of Care Testing: Blood Glucose: 11:00 Blood Glucose: 150 mg/dL; db Ranges: Intake: 11:43 IV: 5ml; Total: 5ml. db Outcome: 11:00 ER care complete, transfer ordered by . rt 11:38 [facility]red by helicopter [facility], Transfer form completed. db 11:38 Condition: stable 11:38 Discharge instructions given to Instructed on the need for transfer. 12:18 Patient left the ED. db NIH Stroke Scale - NIH Stroke Score Date: 08/13/2022 Time: 10:35 Total Score = 12 10. Dysarthria (speech clarity - read or repeat words) - 1(Mild to Moderate) 11. Extinction and Inattention (visual/tactile/auditory/spatial/personal) - 0(No abnormality) 1a. Level of Consciousness (LOC) - 0(Alert) 1b. Level of Consciousness (LOC) (Month \\T\\ Age) - 2(Neither) 1c. LOC Commands (Open \\T\\ Closes Eyes/Warehouse Attendant) - 0(Both) 2. Best Gaze (Lateral Gaze Paresis) - 0(Normal) 3. Visual Field Loss - 0(No visual loss) 4. Facial Palsy - 2(Partial paralysis) 5a. Left Arm: Motor (10-second hold) - 0(No drift) 5b. Right Arm: Motor (10-second hold) - 2(Drift, some effort against gravity) 6a. Left Leg: Motor (5-second hold - always test supine) - 0(No drift) 6b. Right Leg: Motor (5-second hold - always test supine) - 2(Drift, some effort against gravity) 7. Limb Ataxia (finger/nose \\T\\ heel/hernandez - test with eyes open) - 1(Present in one limb) 8. Sensory Loss (pinprick arms/legs/face) - 1(Mild to moderate loss) 9. Best Language: Aphasia (description/naming/reading) - 1(Mild to moderate aphasia) Initials: NIH Stroke Scale - NIH Stroke Score Date: 08/13/2022 Time: 11:15 Total Score = 10 10. Dysarthria (speech clarity - read or repeat words) - 1(Mild to Moderate) 11. Extinction and Inattention (visual/tactile/auditory/spatial/personal) - 0(No abnormality) 1a. Level of Consciousness (LOC) - 0(Alert) 1b. Level of Consciousness (LOC) (Month \\T\\ Age) - 0(Both) 1c. LOC Commands (Open \\T\\ Closes Eyes/Warehouse Attendant) - 0(Both) 2. Best Gaze (Lateral Gaze Paresis) - 0(Normal) 3. Visual Field Loss - 0(No visual loss) 4. Facial Palsy - 2(Partial paralysis) 5a. Left Arm: Motor (10-second hold) - 0(No drift) 5b. Right Arm: Motor (10-second hold) - 2(Drift, some effort against gravity) 6a. Left Leg: Motor (5-second hold - always test supine) - 0(No drift) 6b. Right Leg: Motor (5-second hold - always test supine) - 2(Drift, some effort against gravity) 7. Limb Ataxia (finger/nose \\T\\ heel/hernandez - test with eyes open) - 1(Present in one limb) 8. Sensory Loss (pinprick arms/legs/face) - 1(Mild to moderate loss) 9. Best Language: Aphasia (description/naming/reading) - 1(Mild to moderate aphasia) Initials: NIH Stroke Scale - NIH Stroke Score Date: 08/13/2022 Time: 11:19 Total Score = 10 10. Dysarthria (speech clarity - read or repeat words) - 1(Mild to Moderate) 11. Extinction and Inattention (visual/tactile/auditory/spatial/personal) - 0(No abnormality) 1a. Level of Consciousness (LOC) - 0(Alert) 1b. Level of Consciousness (LOC) (Month \\T\\ Age) - 0(Both) 1c. LOC Commands (Open \\T\\ Closes Eyes/Warehouse Attendant) - 0(Both) 2. Best Gaze (Lateral Gaze Paresis) - 0(Normal) 3. Visual Field Loss - 0(No visual loss) 4. Facial Palsy - 2(Partial paralysis) 5a. Left Arm: Motor (10-second hold) - 0(No drift) 5b. Right Arm: Motor (10-second hold) - 2(Drift, some effort against gravity) 6a. Left Leg: Motor (5-second hold - always test supine) - 0(No drift) 6b. Right Leg: Motor (5-second hold - always test supine) - 3(No effort against gravity) 7. Limb Ataxia (finger/nose \\T\\ heel/hernandez - test with eyes open) - 0(Absent) 8. Sensory Loss (pinprick arms/legs/face) - 1(Mild to moderate loss) 9. Best Language: Aphasia (description/naming/reading) - 1(Mild to moderate aphasia) Initials: rt Signatures: Dispatcher [employer] ASHLEYMelodie Mckeon mr Ivis Johnson RN RN iw Caro Manley RN RN jl7 Kristel Morales RN RN db Aly Malone MD MD rt Darshana Law RN RN nj1 Ivis Johnson RN iw Corrections: (The following items were deleted from the chart) 11:19 10:35 TNKase (Tenecteplase) Screening: Indications: Definite evidence of db stroke, ischemic, embolic, or hypertensive: Yes. Treatment will start within 4.5 hours onset of symptoms: Yes. No evidence of intracranial hemorrhage or CT of head and no evidence of peripheral hemorrhage or recent CVA: Yes. Consent for thrombolytic therapy: Yes. db 11:46 10:54 BP 99 / 48; 104 kg Measured; BMI: 44.7; nj1 db 12:03 10:35 NIHSS Score: 12 db db
--- NOTE | 2022-08-13 11:01 | EDPHYS ---
Physician Documentation [facility] Name: Kiley Ortega Age: 77 yrs Sex: Female : 1945 Arrival Date: 08/13/2022 Time: 10:30 Bed 3 Private MD: Jesus Franco V ED Physician Aly Malone HPI: 08/13 11:19 This 77 yrs old Female presents to ER via Ambulatory with complaints of S/S of Possible rt Stroke. 11:19 Patient presents to the ED with concerns for acute CVA. The son states that the patient rt was last known normal at 8 AM when he gave the patient her breakfast. He checked on the patient about an hour and half later, noted that she seemed to be confused and that her speech was off. They were concerned for a stroke and brought the patient for further eval. History is limited due to patient with aphasia.. Historical: - Allergies: 10:39 Iodinated Contrast Media - IV Dye; iw 10:39 Tegretol; iw 10:39 trelegy; iw - PMHx: 10:39 Hypertension; breast cancer-right side; COPD; Diabetes - NIDDM; Myopathy; neuropathy; iw cervical cancer; TIA; Kidney stone; - PSHx: 10:39 Total abdominal hysterectomy; iw - Immunization history:: Client reports receiving the 2nd dose of the Covid vaccine. - Social history:: Smoking status: Patient denies any tobacco usage or history of. - Family history:: not pertinent. ROS: 11:19 Unable to obtain ROS due to Aphasic. rt Exam: 11:16 ECG was reviewed by the Attending Physician. rt 11:19 Radiologist reports: No acute findings rt 11:19 Constitutional: This is a well developed, well nourished patient who is awake, alert, and in no acute distress. Chest/axilla: Normal chest wall appearance and motion. Nontender with no deformity. No lesions are appreciated. Cardiovascular: Regular rate and rhythm with a normal S1 and S2. No gallops, murmurs, or rubs. Normal PMI, no JVD. No pulse deficits. Respiratory: Lungs have equal breath sounds bilaterally, clear to auscultation and percussion. No rales, rhonchi or wheezes noted. No increased work of breathing, no retractions or nasal flaring. Abdomen/GI: Soft, non-tender, with normal bowel sounds. No distension or tympany. No guarding or rebound. No evidence of tenderness throughout. Skin: Warm, dry with normal turgor. Normal color with no rashes, no lesions, and no evidence of cellulitis. 11:19 Neuro: Right-sided facial droop, sensory deficits on the right side of the face, slurred, nonfluent speech, 3/5 strength on right upper extremity, 1/5 strength in right lower extremity, strength otherwise intact, sensory deficits on the right upper and right lower extremities, sensation otherwise intact.. Vital Signs: 10:30 Pulse 69; Resp 18; Pulse Ox 96% on R/A; Height 5 ft. 0 in. ; nj1 10:45 BP 99 / 48; Weight 104 kg (M); db 10:50 Weight 104 kg (M); iw 10:50 BP 121 / 80; Pulse 67; Resp 18; Pulse Ox 97% on R/A; db 11:00 BP 125 / 58; Pulse 64; Resp 18; Pulse Ox 97% on R/A; db 11:15 BP 132 / 46; Pulse 64; Resp 18; Temp 98; Pulse Ox 97% on R/A; db 10:45 Body Mass Index 44.78 (104.00 kg, 152.4 cm) db NIH Stroke Scale Scores: 10:35 NIHSS Score: 12 db 11:15 NIHSS Score: 10 db 11:19 NIHSS Score: 10 rt MDM: 10:32 Patient medically screened. rt 11:19 Differential diagnosis: CVA, TIA, intracranial hemorrhage. Data reviewed: vital signs. rt Consideration of Admission/Observation Patient requires transfer for higher level of care. Management of patient was discussed with the following: Lpc: Discussed with accepting neurologist at [facility], request the patient be premedicated and will scan the patient for large vessel occlusion upon arrival. I considered the following discharge prescriptions or medication management in the emergency department Medications were administered in the Emergency Department. See MAR. Independent interpretation of the following test(s) in the Emergency Department CT Scan: My interpretation is No hemorrhage seen on interpretation of the CT scan images. Discussion of test interpretation with radiology: I had a discussion with radiology regarding a test interpretation. No acute finding. Test considered but Not performed: Other Details Believe that premedicating patient for CT angiogram or obtaining MRA to rule out large vessel occlusion will likely delay transfer to definitive care, will defer further imaging to accepting facility.. Historians other than the Patient: Daughter/Son: History obtained mostly per the patient's son due to patient's aphasic status. External Records Reviewed: Inpatient record: Reviewed prior medication list, no anticoagulants noted. Care significantly affected by the following chronic conditions: Diabetes. Counseling: I had a detailed discussion with the patient and/or guardian regarding: the historical points, exam findings, and any diagnostic results supporting the discharge/admit diagnosis, lab results, radiology results, the need to transfer to another facility. Response to treatment: There is no appreciated change of the patient's symptoms at this time. Consent for treatment: Risk, benefits, and alternatives discussed with Pt/guardian concerning: Discussed risks of bleeding with or permanent stability with this as well as benefits of thrombolytic administration, the son consents to thrombolytic administration. 08/13 10:48 Order name: Basic Metabolic Panel; Complete Time: 11:44 rt 08/13 10:48 Order name: CBC with Diff; Complete Time: 11:44 rt 08/13 10:48 Order name: Hepatic Function; Complete Time: 11:44 rt 08/13 10:48 Order name: High Sensitivity Troponin; Complete Time: 11:44 rt 08/13 10:48 Order name: Magnesium; Complete Time: 11:44 rt 08/13 10:48 Order name: Protime (+inr); Complete Time: 11:44 rt 08/13 10:48 Order name: Ptt, Activated; Complete Time: 11:44 rt 08/13 11:11 Order name: CBC Smear Scan; Complete Time: 11:44 EDMS 08/13 11:14 Order name: Glucose, Ancillary Testing; Complete Time: 11:44 EDMS 08/13 10:48 Order name: CT Stroke Brain w/o Contrast; Complete Time: 11:44 rt 08/13 10:48 Order name: Stroke CXR 1 View; Complete Time: 11:44 rt 08/13 10:48 Order name: EKG; Complete Time: 10:49 rt 08/13 10:48 Order name: Accucheck; Complete Time: 11:42 rt 08/13 10:48 Order name: Cardiac monitoring; Complete Time: 11:42 rt 08/13 10:48 Order name: EKG - Nurse/Tech; Complete Time: 11:42 rt 08/13 10:48 Order name: IV Saline Lock; Complete Time: 11:02 rt 08/13 10:48 Order name: Labs collected and sent; Complete Time: 11:02 rt 08/13 10:48 Order name: NPO; Complete Time: 11:02 rt 08/13 10:48 Order name: O2 Per Protocol; Complete Time: 11:42 rt 08/13 10:48 Order name: O2 Sat Monitoring; Complete Time: 11:42 rt EC:16 Rate is 67 beats/min. Rhythm is regular, Normal Sinus Rhythm with No ectopy. QRS [place] rt is Normal. ND interval is normal. QRS interval is normal. QT interval is normal. No Q waves. T waves are Normal. No ST changes noted. Interpreted by me. Administered Medications: 10:58 Drug: TNK FOR STROKE - Tenecteplase IV 0.25 mg/kg {Co-Signature: iw (ioana Johnson RN).} Route: IV; Rate: per protocol; Site: left forearm; 11:43 Follow up: Response: No adverse reaction; IV Status: Completed infusion; IV Intake: 5ml db 11:30 Drug: MethylPrednisoLONE IVP 125 mg Route: IVP; Site: left forearm; db 11:35 Follow up: Response: No adverse reaction db 11:30 Drug: diphenhydrAMINE IVP 50 mg Route: IVP; Site: left forearm; db 11:35 Follow up: Response: No adverse reaction db 11:30 Drug: Famotidine IVP 20 mg Route: IVP; Site: left forearm; db 11:36 Follow up: Response: No adverse reaction db Point of Care Testing: Blood Glucose: 11:00 Blood Glucose: 150 mg/dL; db Ranges: Critical Glucose Levels:Adult <50 mg/dl or >400 mg/dl <40 mg/dl or >180 mg/dl Disposition Summary: 08/13/22 11:00 Transfer Ordered Transfer Location: [facility] rt Reason: Higher level of care rt Condition: Critical rt Problem: new rt Symptoms: are unchanged rt Accepting Physician: (08/13/22 12:18) db Diagnosis - acute CVA rt Forms: - Medication Reconciliation Form rt - SBAR form rt Critical care time excluding procedures: 11:19 Critical care time: Bedside Care: 30 minutes, Consultation: 10 minutes. Total time: 40 rt minutes NIH Stroke Scale - NIH Stroke Score Date: 08/13/2022 Time: 10:35 Total Score = 12 10. Dysarthria (speech clarity - read or repeat words) - 1(Mild to Moderate) 11. Extinction and Inattention (visual/tactile/auditory/spatial/personal) - 0(No abnormality) 1a. Level of Consciousness (LOC) - 0(Alert) 1b. Level of Consciousness (LOC) (Month \T\ Age) - 2(Neither) 1c. LOC Commands (Open \T\ Closes Eyes/Supervisor Instrument Repair) - 0(Both) 2. Best Gaze (Lateral Gaze Paresis) - 0(Normal) 3. Visual Field Loss - 0(No visual loss) 4. Facial Palsy - 2(Partial paralysis) 5a. Left Arm: Motor (10-second hold) - 0(No drift) 5b. Right Arm: Motor (10-second hold) - 2(Drift, some effort against gravity) 6a. Left Leg: Motor (5-second hold - always test supine) - 0(No drift) 6b. Right Leg: Motor (5-second hold - always test supine) - 2(Drift, some effort against gravity) 7. Limb Ataxia (finger/nose \T\ heel/hernandez - test with eyes open) - 1(Present in one limb) 8. Sensory Loss (pinprick arms/legs/face) - 1(Mild to moderate loss) 9. Best Language: Aphasia (description/naming/reading) - 1(Mild to moderate aphasia) Initials: db NIH Stroke Scale - NIH Stroke Score Date: 08/13/2022 Time: 11:15 Total Score = 10 10. Dysarthria (speech clarity - read or repeat words) - 1(Mild to Moderate) 11. Extinction and Inattention (visual/tactile/auditory/spatial/personal) - 0(No abnormality) 1a. Level of Consciousness (LOC) - 0(Alert) 1b. Level of Consciousness (LOC) (Month \T\ Age) - 0(Both) 1c. LOC Commands (Open \T\ Closes Eyes/Supervisor Instrument Repair) - 0(Both) 2. Best Gaze (Lateral Gaze Paresis) - 0(Normal) 3. Visual Field Loss - 0(No visual loss) 4. Facial Palsy - 2(Partial paralysis) 5a. Left Arm: Motor (10-second hold) - 0(No drift) 5b. Right Arm: Motor (10-second hold) - 2(Drift, some effort against gravity) 6a. Left Leg: Motor (5-second hold - always test supine) - 0(No drift) 6b. Right Leg: Motor (5-second hold - always test supine) - 2(Drift, some effort against gravity) 7. Limb Ataxia (finger/nose \T\ heel/hernandez - test with eyes open) - 1(Present in one limb) 8. Sensory Loss (pinprick arms/legs/face) - 1(Mild to moderate loss) 9. Best Language: Aphasia (description/naming/reading) - 1(Mild to moderate aphasia) Initials: db NIH Stroke Scale - NIH Stroke Score Date: 08/13/2022 Time: 11:19 Total Score = 10 10. Dysarthria (speech clarity - read or repeat words) - 1(Mild to Moderate) 11. Extinction and Inattention (visual/tactile/auditory/spatial/personal) - 0(No abnormality) 1a. Level of Consciousness (LOC) - 0(Alert) 1b. Level of Consciousness (LOC) (Month \T\ Age) - 0(Both) 1c. LOC Commands (Open \T\ Closes Eyes/Supervisor Instrument Repair) - 0(Both) 2. Best Gaze (Lateral Gaze Paresis) - 0(Normal) 3. Visual Field Loss - 0(No visual loss) 4. Facial Palsy - 2(Partial paralysis) 5a. Left Arm: Motor (10-second hold) - 0(No drift) 5b. Right Arm: Motor (10-second hold) - 2(Drift, some effort against gravity) 6a. Left Leg: Motor (5-second hold - always test supine) - 0(No drift) 6b. Right Leg: Motor (5-second hold - always test supine) - 3(No effort against gravity) 7. Limb Ataxia (finger/nose \T\ heel/hernandez - test with eyes open) - 0(Absent) 8. Sensory Loss (pinprick arms/legs/face) - 1(Mild to moderate loss) 9. Best Language: Aphasia (description/naming/reading) - 1(Mild to moderate aphasia) Initials: rt Signatures: Dispatcher [employer] EDIvis Finley RN RN iw Kristel Morales, RN RN db Aly Malone MD MD rt Darshana Law RN RN nj1 Ivis Johnson RN iw Corrections: (The following items were deleted from the chart) 10:54 10:49 Neck Without Cont+MRI.RAD.BRZ ordered. EDMS EDMS 12:18 11:00 Dr. rt triplett
[2022-08-13 11:07] LABS: Hematocrit 38.5 % (36.0-45.0); Lymphocytes % 31.7 % (15.3-44.8); MCV 85.9 fL (80-100); MPV 8.3 fL (7.6-11.3); RBC Red Blood Cell Count 4.48 M/uL (3.86-4.86)
[2022-08-13 11:12] LABS: Protime INR 0.89
[2022-08-13 11:25] LABS: Albumin 3.2 g/dL (3.4-5.0); Bilirubin Direct 0.1 mg/dL (0-0.2); Bilirubin Indirect, Calculated 0.1 mg/dL (0.2-0.8); Bilirubin Total 0.2 mg/dL (0.2-1.0); Magnesium 2.3 mg/dL (1.6-2.4); Potassium 4.5 mEq/L (3.5-5.1); Protein, Total 7.3 g/dL (6.4-8.2); Troponin High Sensitivity 4.6 pg/mL (<58.9)
--- NOTE | 2022-08-13 11:31 | RAD REPORT ---
EXAM DESCRIPTION: JOSEJuliot Single View08/13/2022 11:26 am CLINICAL HISTORY: Breast cancer COMPARISON: July 2022 FINDINGS: The lungs appear clear of acute infiltrate. The heart is normal size IMPRESSION: No acute abnormalities displayed
[2022-08-13 11:34] LABS: Platelet Estimate ADEQ; White Blood Cell Scan OK (OK)
[2022-08-13 11:35] LABS: Blood Morphology Comment NOT SEEN (NOT SEEN)
[2022-08-13] MEDS ORDERED: DIPHENHYDRAMINE 50 MG/ML VIAL ONE (11:37)
[2022-08-13] MEDS ORDERED: METHYLPREDNISOLONE 125 MG INJ ONE (11:37)
[2022-08-13] MEDS ORDERED: FAMOTIDINE 20 MG/2 ML VIAL IV ONE (11:37)
[2022-08-13 12:26] VITALS: O2SAT 97
[2022-08-13 12:30] VITALS: BP 132/46; TEMP 98
--- NOTE | 2022-08-14 12:32 | EKG ---
Test Date: 2022-08-13 Test Time: 11:08:46 Newspaper Publisher: MIRZA MEASUREMENT RESULTS: Intervals: Rate: 67 CO: 182 QRSD: 76 QT: 404 QTc: 426 Hope: P: 89 CO: 182 QRS: 51 T: 67 INTERPRETIVE STATEMENTS: Normal sinus rhythm Normal ECG Compared to ECG 02/12/2022 08:53:00 Sinus tachycardia no longer present Electronically Signed On 08-14-22 12:31:27 CDT by Eliazar Bergeron
== END 2022-08-13 12:18 | disposition short-term general hospital (02) ==
LOC: ER 10:30
DX: I63.9 Cerebral infarction, unspecified (principal); I10 Essential (primary) hypertension; R29.712 NIHSS score 12; E11.9 Type 2 diabetes mellitus without complications; Z88.8 Allergy status to other drugs, medicaments and biological substances; Z91.041 Radiographic dye allergy status; Z86.73 Personal history of transient ischemic attack (TIA), and cerebral infarction without residual deficits
CPT/HCPCS: 96365; 92977; 93005; 85025; 80048; 36415; 83735; 85610; 82947; 80076; 85730; 84484; 70450; 71045; 96375; 99285; J3101; J1200; J2930

== ENCOUNTER 2022-10-23 15:55 | Observation (INO) | payer OTHER ==
--- OUTSIDE RECORDS SUMMARY | 2022-10-23 15:59 | XMS REPORT | Continuity of Care Document ---
:1945 Author Organization [facility] t Address [address] [place] [address] [address] [place] [address] Care Team Providers Name Role Phone SalvadorNoe donahueesh Attending Clinician Unavailable Shivani Anguiano Attending Clinician Unavailable [email or web address]_E Attending Clinician Unavailable Jose TAI, Christin Delacruz Attending Clinician [phone] Michael Alvarenga MD Attending Clinician Unavailable Osbaldo Nichole MD Attending Clinician [phone] Shashank Jorgensen MD Attending Clinician SHASHANK JORGENSEN Attending Clinician Unavailable CHRISTIN GARCIA Attending Clinician Unavailable Shon Ashford Attending Clinician Ok Pace MD Attending Clinician Virtual, Surgeon Attending Clinician Unavailable Michael_Filiberto Attending Clinician Unavailable [email or web address]_E Admitting Clinician Unavailable MICHAEL ALVARENGA Admitting Clinician Unavailable Michael_Filiberto Admitting Clinician Unavailable Payers Payer Name Policy Type Policy Number Effective Date Expiration Date S ource [employer] [id number] HEALTHCARE (MEDICARE REPLACEMENT/ADVA NTAGE - PPO) [place] [id number] Common HEALTHCARE [facility] [id number] HEALTHCARE Problems Condition Condition Condition Status Onset Resolution Last Treating Co mments Source Name Details Category Date Date Treatment Clinician Date Stroke Stroke Disease Recurre [facility] ([facility]rebrum[facility] (cerebrum) nce 7-04 Ria kes 00:00: Medical 00 Benge Atrial Atrial Disease Recurre [facility] fibrillati fibrillati nce 7-04 Ria kes on on 00:00: Medical 00 Benge Breast Breast Disease Recurre [facility] cancer cancer [facility] 04 [facility] 00:[facility]: Medical 00 B[facility] Diabetes Diabetes Disease Recurre [facility] mellitus mellitus nce 08-13 [facility] 00:00: Medical Benge COPD COPD Disease Recurre [facility] (chronic (chronic n[facility] 08[facility]13 [facility] obstructiv obstructiv 00:00: Co dical e e 00 Center pulmonary pulmonary disease) disease) Walker as Walker as Disease Recurre [facility] ambulation ambulation nce 08-13 Ria kes aid aid 00:00: Medical 00 Benge Cervical Cervical Disease Recurre [facility] cancer cancer nce 08-13 [facility] 00:00: Medical 00 Benge Received Received Disease Active [facility] tissue tissue 08-13 [facility] plasminoge plasminoge 00:00: Co dical n n 00 Center activator activator (t-PA) (t-PA) less than less than 24 hours 24 hours prior to prior to arrival arrival Chronic Chronic Disease Active [facility] back pain back pain 08-13 [facility] s 00:00: Medical 00 Benge HTN HTN Disease Active [facility] (hypertens (hypertens -04 Ria kes ion) ion) 00:00: Medical 00 Benge HLD HLD Disease Active [facility] (hyperlipi (hyperlipi -04 Ria kes demia) demia) 00:00: Medical 00 Benge GERD GERD Disease Active [facility] (gastroeso (gastroeso -04 Ria kes phageal phageal 00:00: Medical reflux reflux 00 Benge disease) disease) 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 Rika francisco javier polycythem Polycythem 1-13 Fa mary ia ia 00:00: Practic 00 e Administra Administra Problem Active 2020-02 [facility] ill[facility] tion of tion of 1-09 Family influenza Influenza 00:00: Prac tic vaccine Vaccine 00 e 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 5-10 Family mellitus Mellitus 00:00: Practi c 00 e History of History of Problem Active [facility] ill[facility] SARS-CoV-2 SARS-CoV-2 5-10 Fa mary 00:00: Practic 00 e Neuropathy Neuropathy Problem Active V ill[facility] due to Due to 9-29 Family type 2 Type 2 00:00: Practic diabetes Diabetes 00 e mellitus Mellitus Gastroesop Gastroesop Problem Active 2018-02 V ill[facility] hageal hageal 2-30 Family reflux Reflux 00:00: Practic disease Disease 00 e without without esophagiti Esophagiti s s Psoriasis Psoriasis Problem Active Rika mcintyre 9-04 Family 00:00: Practic 00 e Ulcer of Ulcer of Problem Active Danilo ge foot Foot 3-13 Family 00:00: Practic 00 e Senile Senile Problem Active 2017-02 [facility] osteoporos Osteoporos 2-13 Fa mary is [...] 00 e Chronic Chronic Problem Active 2016-02 [facility]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 00:00: Pr actic disorder, Disorder, 00 e single Single episode Episode Chronic Chronic Problem Active 2016-02 [facility] pain Pain 2-14 Family 00:00: Practic 00 e Essential Essential Problem Active 2016-02 Rika mcintyre hypertensi Hypertensi 2-14 Fa mary on on 00:00: Practic 00 e Chronic Chronic Problem Active 2016-02 [facility] obstructiv Obstructiv 2-14 [facility] e lung e Lung 00:00: Practic disease Disease 00 e [id number] Boil Problem [facility] [id number] Dysuria Problem [facility] [id number] Menopausal Problem Com mon vaginal Spirit dryness - [facility] Allergies, Adverse Reactions, Alerts Allergy Allergy Status Severity Reaction(s) Onset Inactive Treating Comm ents Source Name Type Date Date Clinician CARBAMAZ Allergy Active High Hives 2023-[address] [facility] EPINE 08-13 [facility] 00:00: Medical 00 Center IODINATE Allergy Active High Hives [facility] D 08-13 [facility] CONTRAST 00:00: Medical MEDIA 00 Benge Carbamaz Drug Active Hives, Rash [facility] epine Allergy 08-13 [facility] 00:00: Medical 00 Benge Iodinate Drug Active Hives, [facility] d Allergy Nausea Only 08-13 Luke [facility] Contrast 00:00: Medical Media 00 Benge 463 Drug Active nausea,diff Commo n allergy breathing Spirit - [facility] Iodine Allergy Active [facility] Practic e e Tegretol Allergy Active [facility] Practic e e Social History Social Habit Start Date Stop Date Quantity Comments Source History of Tobacco [facility] - Use [facility] History [facility] Non-Med Medical Center Tobacco use and 2022-08-13 2022-08-[address] [facility] exposure 00:00:00 00:00:00 non-user Medical Center Alcohol intake 2022-08-13 2022-08-[address] [facility] 00:00:00 00:00:00 non-drinker Medical Cente r (finding) History [facility] 2022-08-13 2022-08-[address] [facility] Transport Med 00:00:00 00:00:[address] [facility] 2022-08-13 2022-08-[address] [facility] Housing Unable to 00:00:00 00:00:00 Medical Center Pay History [facility] 2022-08-13 2022-08-[address] [facility] Housing Places 00:00:00 00:00:00 Medical Ce nter Lived History [facility] 2022-08-13 2022-08-[address] [facility] Housing Homeless 00:00:00 00:00:00 Medical Center Last Year Sex Assigned At [address] [facility] kes 00:00:00 00:00:00 Medical Center Smoking Status Start Date Stop Date Source Never smoked tobacco [facility] Medications Ordered Filled Start Stop Current Ordering Indication Dosage Frequency Signature Comments Components Source Medication Medication Date Date Medication? Clinician (SIG) Name Name aspirin 81 2022- No 81mg QD Take [address] MG chewable 08-16 tablet (81 L ukes tablet 17:59: 00:00 mg total) Medic al 01 :00 by mouth Center daily. apixaban 2022-0 2023- Yes 5mg Q.5D Take [address] (ELIQUIS) 5 08-15 tablet (5 Ria kes mg Tab 00:00: 23:59 mg total) Medic al tablet 00 :00 by mouth 2 Center (two) times daily for 90 days. Bupivicaine Bupivicaine 2-0 No 5mg Common [place] 8-22 Spirit 00:00: - CHI 00 [facility] Kenalog Kenalog 2021-0 No 40mg Common (Triamcinol (Triamcinol 8-22 S pirit one) one) 00:00: - CHI 00 [facility] Bupivicaine Bupivicaine 2-0 No 5mg Common [place] 8-22 Spirit 00:00: - CHI [facility] Kenalog Kenalog 2021-0 No 40mg Common (Triamcinol (Triamcinol 8-22 S pirit one) one) 00:00: - CHI 00 [facility] Bupivicaine Bupivicaine 2-0 No 5mg Common [place] 8-22 Spirit 00:00: - CHI 00 [facility] Kenalog Kenalog 2021-0 No 40mg Common (Triamcinol (Triamcinol 8-22 S pirit one) one) 00:00: - CHI 00 [facility] Lyrica Lyrica No Lyrica metFORMIN metFORMIN No [...] MG 100 MG Docusate Docusate No Docusate Sodium-Hettick Sodium-Hettick Sodium-Herman nthranol nthranol anthranol Aspirin 81 Aspirin [...] SoloStar SoloStar SoloStar Docusate Docusate No Docusate Sodium-Hettick Sodium-Hettick Sodium-Herman [facility] anthranol Lyrica Lyrica No Lyrica Omeprazole Omeprazole [...] MG 100 MG Docusate Docusate No Docusate Sodium-Hettick Sodium-Hettick Sodium-Herman nthranol nthranol anthranol Aspirin 81 Aspirin [...] morning. amlodipine amlodipine No 1 Q1D amlodipine [facility] 5 mg tablet 5 mg tablet 5 mg F amily Take 1 Take 1 tablet Practic tablet tablet Take 1 e every day every day tablet by oral by oral every day route in route in by oral the the route in morning. morning. the morning. atorvastati atorvastati No atorvastat [facility] n 20 mg n 20 mg [...] No 1needle Q1D Comfort EZ [facility] Pen [place] Pen [place] (s) Pen F amily 32 gauge x 32 gauge x [place] 32 Practic 06/25" Take 06/25" Take gauge x e 1 needle 1 needle 06/25" Take every day every day 1 needle by miscell. by miscell. every day route as route as by directed. directed. miscell. route as directed. diphenhydra diphenhydra No 1capsul Q8H diphenhydr [facility] mine 25 mg mine 25 mg e(s) amine 25 Family capsule capsule mg capsule Pra ctic Take 1 Take 1 Take 1 e capsule capsule capsule every 8 every 8 every 8 hours by hours by hours by oral route oral route oral route as as as directed. directed. directed. fluoxetine fluoxetine No 1capsul Q1D fluoxetine [facility] 40 mg 40 mg e(s) 40 mg Family capsule capsule capsule Practi c Take 1 Take 1 Take 1 e capsule capsule capsule every day every day every day by oral by oral by oral route at route at route at bedtime. bedtime. bedtime. ipratropium ipratropium No 2.5mL Q6H ipratropiu [facility] bromide bromide m bromide Fami ly [...] directed. metformin metformin No 2 BID metformin [facility] ER 500 mg ER 500 mg [...] days. omeprazole omeprazole No 1 Q1D omeprazole [facility] 20 mg 20 mg 20 mg [...] units in AM 60 units in AM Immunizations Ordered Immunization Filled Immunization Date Status Commen ts Source Name Name influenza, high-dose, influenza, high-dose, 2020-12-19 Completed [facility] quadrivalent quadrivalent 12:00:38 Practice Non-US Vaccine Non-US Vaccine 2020-09-06 Completed [facility] e [facility] COVID-19 PS COVID-19 PS 00:00:00 Practice (EpiVacCorona) (EpiVacCorona) COVID-19, mRNA, COVID-19, mRNA, 2020-08-10 Completed [facility] Family LNP-S, PF, 100 LNP-S, PF, 100 00:00:00 Practi ce mcg/0.5 mL dose mcg/0.5 mL dose (Moderna) (Moderna) pneumococcal pneumococcal 2018-02-10 Completed [facility] mary polysaccharide PPV23 polysaccharide PPV23 00:00:00 Practice influenza, influenza, 2018-02-10 Completed [facility] injectable, injectable, 00:00:00 Practice quadrivalent quadrivalent Vital Signs Vital Name Observation Time Observation Value Comments Source HEIGHT 2022-08-13 14:00:00 160 cm WEIGHT 2022-08-13 14:00:00 90.5 kg HEIGHT 2022-08-13 14:00:00 160 cm WEIGHT 2022-08-13 14:00:00 90.5 kg HEIGHT 2022-08-13 13:00:00 160 cm WEIGHT 2022-08-13 13:00:00 90.5 kg HEIGHT 2022-08-13 13:00:00 160 cm WEIGHT 2022-08-13 13:00:00 90.5 kg HEIGHT 2022-08-13 14:00:00 160 cm WEIGHT 2022-08-13 14:00:00 90.5 kg height 2021-11-12 13:15:00 62 [in_i] [facility] weight 2021-11-12 13:15:00 205.4 [lb_av] [facility] temperature 2021-11-12 13:15:00 97.3 [degF] [facility] bmi 2021-11-12 13:15:00 37.56 kg/m2 [facility] blood pressure 2021-11-12 13:15:00 146 mm[Hg] [facility] - systolic [facility] blood pressure 2021-11-12 13:15:00 86 mm[Hg] [facility] - diastolic [facility] height 2021-10-01 13:30:00 62 [in_i] [facility] weight 2021-10-01 13:30:00 198.5 [lb_av] [facility] temperature 2021-10-01 13:30:00 97.3 [degF] Common [facility] bmi 2021-10-01 13:30:00 36.3 kg/m2 [facility] blood pressure 2021-10-01 13:30:00 128 mm[Hg] [facility] - systolic [facility] blood pressure 2021-10-01 13:30:00 74 mm[Hg] [facility] - diastolic [facility] BP Diastolic 2021-03-21 00:00:00 76 mm[Hg] [facility] Height 2021-03-21 00:00:00 62 [in_i] [facility] BP Systolic 2020-09-22 00:00:00 124 mm[Hg] [facility] Body Weight 2020-09-22 00:00:00 198 [lb_av] [facility] BP Diastolic 2020-09-11 00:00:00 79 mm[Hg] [facility] Height 2020-09-11 00:00:00 62 [in_i] [facility] BMI (Body Mass Index) 2020-09-11 00:00:00 35.8 kg/m2 [facility] BP Systolic 2020-09-11 00:00:00 141 mm[Hg] [facility] Body Weight 2020-09-11 00:00:00 196 [lb_av] [facility] BP Diastolic 2020-06-19 00:00:00 80 mm[Hg] [facility] Height 2020-06-19 00:00:00 62 [in_i] [facility] BMI (Body Mass Index) 2020-06-19 00:00:00 35.8 kg/m2 [facility] BP Systolic 2020-06-19 00:00:00 134 mm[Hg] [facility] Body Weight 2020-06-19 00:00:00 196 [lb_av] [facility] BP Diastolic 2019-11-09 00:00:00 64 mm[Hg] [facility] Height 2019-11-09 00:00:00 62 [in_i] [facility] BMI (Body Mass Index) 2019-11-09 00:00:00 35.6 kg/m2 [facility] BP Systolic 2019-11-09 00:00:00 154 mm[Hg] [facility] Body Weight 2019-11-09 00:00:00 194.6 [lb_av] [facility] Systolic blood 2022-08-15 16:00:00 127 mm[Hg] [facility] Diastolic blood 2022-08-15 16:00:00 84 mm[Hg] [facility] Heart rate 2022-08-15 16:00:00 61 /min [facility] Body temperature 2022-08-15 16:00:00 36.72 Vikki [facility] Respiratory rate 2022-08-15 16:00:00 15 /min [facility] Oxygen saturation in 2022-08-15 16:00:00 95 /min [facility] Arterial blood by Medical Ce nter Pulse oximetry Body height 2022-08-13 20:51:00 160 cm [facility] Body weight 2022-08-13 20:51:00 90.5 kg [facility] BMI 2022-08-13 20:51:00 35.34 kg/m2 [facility] Procedures Procedure Date / Time Performing Clinician Source Performed ECHO W CONTRAST & DOPPLER 2022-08-15 14:01:00 Mary Walker [facility] POCT-GLUCOSE METER 2022-08-15 10:46:00 Shashank Jorgensen [facility] CBC W/PLT COUNT & AUTO 2022-08-15 04:17:00 Alex Avitia [facility] BASIC METABOLIC PANEL 2022-08-15 04:17:00 Alex Avitia [facility] CBC W/PLT COUNT & AUTO 2022-08-15 04:17:00 Alex Avitia [facility] (CELLAVISION MANUAL DIFF) 2022-08-15 04:17:00 Alex Avitia [facility] I [facility] POCT-GLUCOSE METER 2022-08-14 16:08:[address] [facility] POCT-GLUCOSE METER 2022-08-14 10:49:00 Michael Alvarenga [facility] MR BRAIN WITH & WITHOUT IV 2022-08-14 10:13:14 Alex Avitia [facility] POCT-GLUCOSE METER 2022-08-14 06:01:[address] [facility] LIPID PANEL 2022-08-14 02:56:00 Asaf Forde [facility] CBC W/PLT COUNT & AUTO 2022-08-14 02:56:00 Alex Avitia [facility] BASIC METABOLIC PANEL 2022-08-14 02:56:00 Alex Avitia [facility] CBC W/PLT COUNT & AUTO 2022-08-14 02:56:00 Alex Avitia [facility] POCT-GLUCOSE METER 2022-08-13 20:11:[facility] 2022-08-13 16:13:00 [facility] INDICATED [facility] URINALYSIS MICROSCOPIC 2022-08-13 16:13:00 Alex Avitia [facility] POCT-GLUCOSE METER 2022-08-13 16:11:[address] [facility] PROTHROMBIN TIME/INR 2022-08-13 16:02:00 Dejon [facility] APTT 2022-08-13 16:02:00 Dejon [facility] ECG 12-LEAD 2022-08-13 15:12:38 [facility] 2022-08-13 15:12:38 Unknown, Hl7 Doctor [facility] POCT-GLUCOSE METER 2022-08-13 15:09:00 Christin Garcia [facility] CBC W/PLT COUNT & AUTO 2022-08-13 15:04:00 [facility]PRE[facility]ABOLIC 2022-08-13 15:04:00 [facility]IGH SENSITIVITY TROPONIN 2022-08-13 15:04:00 Adore [facility] HEMOGLOBIN A1C 2022-08-13 15:04:00 Adore [facility] TSH/FREE T4 IF INDICATED 2022-08-13 15:04:00 Adore [facility] C-REACTIVE PROTEIN 2022-08-13 15:04:00 [facility]12 2022-08-13 15:04:00 Adore [facility] METHYLMALONIC ACID 2022-08-13 15:04:00 Adore [facility] HC LAB HIV-1 AG W/HIV-1&2 2022-08-13 15:04:00 Alxe Avitia [facility] RPR 2022-08-13 15:04:00 [facility] W/[facility]T COUNT & AUTO 2022-08-13 15:04:00 [facility] CT[facility] BRAIN 2022-08-13 12:50:00 Dejon [facility] CTA CAROTID 2022-08-13 12:50:00 Dejon [facility] CT BRAIN CEREBRAL 2022-08-13 12:50:00 Dejon [facility] PERFUSION ANALYSIS Medical Cente r EKG-SCANNED 2022-08-13 00:00:00 Provider, Default [facility] Sc[facility] Removal of Gallbladder 2019-07-12 00:00:00 [facility] Laparoscopic 2019-04-30 00:00:00 [facility] Maurii ly Cholecystectomy Practice Colonoscopy [facility] Family Practice Procedure on Kidney [facility] Fami ly Practice Procedure on Bladder [facility] Operation on Cervix [facility] ly Practice Breast Surgery [facility] Practice Hysterectomy (Total) [facility] Plan of Care Planned Activity Planned Date Details Comments Source Future Scheduled 2023-08-[address] [facility] Test 00:00:00 [facility] Medical Cent[facility] r Screening (12+) [code = Tobacco Cessation Counseling and Screening (12+)] Future Scheduled 2022-10-[address] [facility] Test 00:00:00 (#1) [code = Medical Center Influenza Vaccine (#1)] Future Scheduled 2022-08-[address] [facility] Test 00:00:00 [facility] (procedure) [code = 56703834] Future Scheduled 2022-05-[address] [facility] Test 00:00:00 (WELCOME TO MEDICARE) [facility] Center [code = Medicare IPPE (WELCOME TO MEDICARE)] Diagnostic Test 2021-03-21 glucose, fingerstick, Rika francisco javier Family Pending 00:00:00 blood [code = Practice glucose, fingerstick, blood] Diagnostic Test 2021-03-21 hemoglobin A1C, Rosa lamas Pending 00:00:00 fingerstick [code = Practice hemoglobin A1C, fingerstick] Future Scheduled 2020-10-05 COVID-19 VACCINE (2 [facility] Test 00:00:00 Booster for Moderna [facility] Center series) [code = COVID-19 VACCINE (2 - Booster for Moderna series)] Future Scheduled 1995-07-18 SHINGLES VACCINES ([address] [facility] Test 00:00:00 of 2) [code = Medical Center SHINGLES VACCINES (1 of 2)] Future Scheduled 1964 DTAP/TDAP/TD VACCINES [facility] Test 00:00:00 (1 - Tdap) [code = Medical C enter DTAP/TDAP/TD VACCINES (1 - Tdap)] Future Scheduled 1963-07-18 HEPATITIS C SCREENING [facility] Test 00:00:00 [code = HEPATITIS C Medical Center SCREENING] Future Scheduled 1955-07-[address] DIABETIC EYE EXAM [facility] Test 00:00:00 [code = DIABETIC EYE Medical Center EXAM] Future Scheduled 1955-07-[address] [facility] Test 00:00:00 examination Medical Center (regime/therapy) [code = 981224307] Future Scheduled 1955-07-18 Urine screening for [facility] Test 00:00:00 protein (procedure) Medical Center [code = 805266812] Future Scheduled 1945 DXA SCAN [code = DXA [facility] Test 00:00:00 SCAN] Medical Center Encounters Start End Encounter Admission Attending Care Care Encounter Source Date/Time Date/Time Type Type Clinicians Facility Department ID 2022-03-25 Outpatient Salvador, STLMLC STLMLC [id number] Common 16:58:00 Jesus [id number] [facility] 2022-03-11 Outpatient Salvador, STLMLC STLMLC [id number] Common 10:48:00 Jesus [id number] [facility] 2021-10-01 Outpatient Salvador, STLMLC STLMLC [id number] Common 13:17:00 Jesus [id number] [facility] 2021-09-18 Outpatient Annmarie, STLMLC STLMLC [id number] Common 14:32:00 Shivani [id number] [facility] 2022-10-22 2022-10-22 Outpatient GC_GCBZW_Mc PRIV PRIV [id number] [facility] 00:00:00 00:00:00 Intire_E [id number] Medic al 2022-10-21 2022-10-21 Outpatient GC_GCBZW_Mc PRIV PRIV [id number] [facility] 00:00:00 00:00:00 Intire_E [id number] Medic al 2022-10-09 2022-10-09 Outpatient GC_GCBZW_Mc PRIV PRIV [id number] [facility] 00:00:00 00:00:00 Intire_E [id number] Medic al 2022-08-30 2022-08-30 Outpatient GC_GCBZW_Mc PRIV PRIV [id number] [facility] 00:00:00 00:00:00 Intire_E [id number] [facility] 2022-08-13 2022-08-15 [facility] Christin Garcia [facility] [id number] [facility] 12:05:00 17:59:00 Encounter Michael Alvarenga [facility] 2022-08-13 2022-08-15 [facility] Surgery [id number] [facility] 12:05:00 17:59:00 [facility] 2022-08-15 2022-08-15 [facility] SLE [id number] [facility] 12:09:52 00:00:00 [facility] 2022-08-14 2022-08-14 Inpatient UR JOSE [facility] SLE [id number] [facility] 09:21:35 00:00:00 [facility] 2022-08-13 2022-08-13 [facility] [id number] 12:24:15 23:59:00 Encounter [facility] 2022-08-13 2022-08-13 Outpatient EL SLEH SLE [id number] [facility] 12:24:15 23:59:00 2022-08-13 2022-08-13 [facility] [id number] 12:24:13 23:59:00 Encounter [facility] 2022-08-13 2022-08-13 Outpatient EL SLEH SLEH [id number] [facility] 12:24:13 23:59:00 2022-08-13 2022-08-13 [facility] [id number] 12:24:08 23:59:00 Encounter [facility] 2022-08-13 2022-08-13 Outpatient EL SLEH SLEH [id number] [facility] 12:24:08 23:59:00 2022-08-13 2022-08-13 Anesthesia Ok Pace [facility] [id number] 20:08:00 20:08:00 Event Guest [facility] 2022-08-13 2022-08-13 Surgery Virtual, [facility] [id number] 12:08:00 12:31:00 Surgeon [facility] 2022-08-13 2022-08-13 Orders [facility] [id number] 00:00:00 00:00:00 Only [facility] 2022-08-13 2022-08-13 Travel [facility] [id number] [facility] 00:[facility]:00 00:00:00 [facility] 2021-11-12 2021-11-12 [id number] Co mmon 00:00:00 00:00:00 VISIT Miguel HARRIS PT - CHI LEVEL 4 [facility] 2021-10-01 2021-10-01 [facility] [id number] Co mmon 00:00:00 00:00:00 VISIT PRANAV de la cruz PT LEVEL 4 - [facility]I [facility] 2021-03-23 2021-03-23 Outpatient Daniel_T VFP VFP [id number] [facility] 10:25:00 10:25:00 [id number] Family Practic e 2021-03-21 2021-03-21 Yuri Daniel_T VFP [place] - [id number] Village 00:00:00 00:00:00 [facility] [id number] Family RodriguezRamsey - Marcus vera MD: [id number] VM_KELVIN_Nestor e Shadow [facility], [address], [place] [address] , Ph. 2021-03-14 2021-03-14 Outpatient Daniel_T VFP VFP [id number] 20 [facility] 03:48:00 03:48:00 [id number] Family Practic e 2020-12-22 2020-12-22 Outpatient Daniel_T VFP VFP [id number] 20 [facility] 01:15:00 01:15:00 [id number] Family Practic e 2020-12-21 2020-12-21 Outpatient Daniel_T VFP VFP [id number] 20 [facility] 10:26:00 10:26:00 [id number] Family Practic e 2020-12-19 2020-12-19 Yuri Michael_T VFP [place] - [id number] [place] 00:00:00 00:00:00 [facility] [id number] Family RodriguezRamsey - Marcus vera MD: [id number] Angie curry [address] [place] [address], [place] [address] , Ph. 2020-12-12 2020-12-12 Outpatient Daniel_T VFP VFP [id number] [facility] 11:08:00 11:08:00 [id number] Family Practic e 2020-09-26 2020-09-26 Outpatient Daniel_T VFP VFP [id number] [facility] 05:04:00 05:04:00 [id number] Family Practic e 2020-09-22 2020-09-22 Yurinathan Rodriguez_T VFP [place] - [id number] [facility] 00:00:00 00:00:00 [facility] [id number] Family RodriguezRamsey MD: [id number] DUANE_KELVIN_Nestor curry [place] [address], [address] [place] [address] , Ph. 2020-09-14 2020-09-14 Outpatient Daniel_T VFP VFP [id number] [facility] 03:01:00 03:01:00 [id number] Family Practic e 2020-09-11 2020-09-11 Yuri Michael_T VFP [place] - [id number] [facility] 00:00:00 00:00:00 [facility] [id number] Family RodriguezRamsey MD: [id number] DUANE_KELVIN_Nestor curry [place] [address] [place], [address], [place] [address] , Ph. 2020-07-28 2020-07-28 Outpatient Daniel_T VFP VFP [id number] [facility] 01:29:00 01:29:00 [id number] Family Practic e 2020-06-21 2020-06-21 Outpatient Daniel_T VFP VFP [id number] 10-30 [facility] 06:47:00 06:47:00 [id number] Family Practic e 2020-06-19 2020-06-19 Yuri Rodriguez_T VFP [place] - [id number] Village 00:00:00 00:00:00 [facility] [id number] [facility] - Practi jody MD: [id number] VM_HOU_Shad e Shadow [facility] [address], [place] [address] , Ph. 2020-03-20 2020-03-20 Outpatient Daniel_T VFP VFP [id number] 10-30 [facility] 09:49:00 09:49:00 Family Practic e 2019-11-12 2019-11-12 Outpatient Daniel_T VFP VFP [id number] 10-30 [facility] 06:54:00 06:54:00 Family Practic e 2019-11-09 2019-11-09 Yuri Rodriguez_T VFP [place] - [id number] [facility] 00:00:00 00:00:00 [facility] [id number] [facility] - Practi jody MD: [id number] VM_HOU_Dani e Shadow [facility], [facility] [address], [place] [address] , Ph. 2019-10-27 2019-10-27 Outpatient Daniel_T VFP VFP [id number] 10-30 [facility] 10:48:00 10:48:00 [id number] Family Practic e Results Test Description Test Time Test Comments Results Result Comments Source POC-Glucose meter 2022-08-15 10:57:35 Test Item Value Reference Range Interpretation Comme nts POC-Glucose Meter (test code = 184 mg/dL 70-110 H : TESTED AT [facility] [address] [facility] 1538) [facility], [facility] 30: Occupational Health Physician/Techni janie ID = [id number] for Hemanes, Diana'Sh ae Lab Interpretation (test code = Abnormal 74787-5) [facility] [id number] 10:57:35 Test Item Value Reference Range Interpretation Comments POC-GLUCOSE METER 184 mg/dL 70-110 H : TESTED A T [facility] (BEAKER) (test code = WILLIAM Verma [facility], 1538) [address]: Occupational Health Physician/Techni janie ID = [id number] for Seema Gutierrez (CELLAVISION MANUAL DIFF)2022-08-15 08:16:06 Test Item Value Reference Range Interpretation Comments NEUTROPHILS - REL 43 % (CELLAVISION)(BEAKER) (test code = 2816) LYMPHOCYTES - REL 45 % (CELLAVISION)(BEAKER) (test code = 2817) MONOCYTES - REL 5 % (CELLAVISION)(BEAKER) (test code = 2818) EOSINOPHILS - REL 4 % (CELLAVISION)(BEAKER) (test code = 2819) BASOPHILS - REL 3 % (CELLAVISION)(BEAKER) (test code = 2820) NEUTROPHILS - ABS 4.60 K/ul 1.56-6.13 (CELLAVISION)(BEAKER) (test code = 2830) LYMPHOCYTES - ABS 4.82 K/ul 1.18-3.74 H (CELLAVISION)(BEAKER) (test code = 2831) MONOCYTES - ABS 0.54 K/uL 0.24-0.36 H (CELLAVISION)(BEAKER) (test code = 2832) EOSINOPHILS - ABS 0.43 K/uL 0.04-0.36 H (CELLAVISION)(BEAKER) (test code = 2834) BASOPHILS - ABS 0.32 K/uL 0.01-0.08 H (CELLAVISION)(BEAKER) (test code = 2835) TOTAL COUNTED (BEAKER) (test code 100 = 1351) PLT MORPHOLOGY (BEAKER) (test Normal code = 486) SMUDGE CELLS (BEAKER) (test code Present = 1371) POLYCHROMATOPHILLIC RBCS(BEAKER) 2+ moderate (test code = 478) ANISOCYTOSIS (BEAKER) (test code 1+ few = 961) MICROCYTES (BEAKER) (test code = 1+ few 965) PLATELET CONCENTRATION Adequate (CELLAVISION)(BEAKER) (test code = 3438) Occupational Health Physician ID - [email or web address] comments: Slide comments:CBC W/PLT COUNT & AUTO [id number] 08:16:05 Test Item Value Reference Range Interpretation Comments WHITE BLOOD CELL COUNT (BEAKER) 10.7 K/ L 3.5-10.5 H (test code = 775) RED BLOOD CELL COUNT (BEAKER) 4.48 M/ L 3.93-5.22 (test code = 761) HEMOGLOBIN (BEAKER) (test code = 11.9 GM/DL 11.2-15.7 410) HEMATOCRIT (BEAKER) (test code = 40.1 % 34.1-44.9 411) MEAN CORPUSCULAR VOLUME (BEAKER) 90 fL 79-95 (test code = 753) MEAN CORPUSCULAR HEMOGLOBIN 26.6 pg 25.6-32.2 (BEAKER) (test code = 751) MEAN CORPUSCULAR HEMOGLOBIN CONC 29.7 GM/DL 32.2-35.5 L (BEAKER) (test code = 752) RED CELL DISTRIBUTION WIDTH 15.7 % 11.7-14.4 H (BEAKER) (test code = 412) PLATELET COUNT (BEAKER) (test 316 K/CU MM 150-450 code = 756) MEAN PLATELET VOLUME (BEAKER) 10.1 fL 9.4-12.3 (test code = 754) NUCLEATED RED BLOOD CELLS 0 /100 WBC 0-0 (BEAKER) (test code = 413) BASIC METABOLIC [id number] 04:52:44 Test Item Value Reference Range Interpretation Comments SODIUM (BEAKER) 140 meq/L 136-145 (test code = 381) POTASSIUM 4.8 meq/L 3.5-5.1 (BEAKER) (test code = 379) CHLORIDE (BEAKER) 108 meq/L 98-107 H (test code = 382) CO2 (BEAKER) 23 meq/L 22-29 (test code = 355) BLOOD UREA 24 mg/dL 7-21 H NITROGEN (BEAKER) (test code = 354) CREATININE 0.80 mg/dL 0.57-1.25 (BEAKER) (test code = 358) GLUCOSE RANDOM 111 mg/dL 70-105 H (BEAKER) (test code = 652) CALCIUM (BEAKER) 9.2 mg/dL 8.4-10.2 (test code = 697) EGFR (BEAKER) 76 Interpretatio n of eGFR (test code = mL/min/1.73 values Stage De scription 1092) sq m Result G1 Darshana l or high >=90 G2 Mildly decreased 60-89 G3a Mildl y to moderately 45-5 9 G3b Moderately to s everely 30-44 G4 Severl y decreased 15-29 G5 Kidney failure <15Reported eGF R is based on the CKD-EPI 2021 equation that d oes not use a race coefficientEsti mated GFR is not as accur ate as Creatinine Mariah cheyenne in predicting glom erular filtration rate . Estimated GFR is not appl icable for dialysis patien ts Occupational Health Physician ID - DBPOCT-GLUCOSE [id number] 16:20:22 Test Item Value Reference Range Interpretation Comments POC-GLUCOSE METER 156 mg/dL 70-110 H : TESTED A T [facility] 6720 (KEVAN) (test code = WILLIAM MENEZ[place], 1538) [address]: Occupational Health Physician/Techni janie ID = [id number] for Cara Hernandez MR BRAIN WITH & WITHOUT IV [id number] 15:05:24 [facility] 1945 Sex: FMR BRAIN WITH & WITHOUT IV CONTRASTINDICATION: Stroke, follow upBrain mass or lesionTechnique: MRI of the brain utilizing axial T1, T2, FLAIR, GRE, DWI,sagittal T1; and postgadolinium axial, sagittal, andcoronal T1-weightedimages.COMPARISON: CT, CTA prior dayFINDINGS:Brain parenchyma is normal in morphology. Midline structures arenormally developed. No restricted diffusion to suggest recent ischemicinsult. Small remote microhemorrhages of the right parietal lobe.Scattered T2/FLAIR hyperintense foci within the periventricular andsubcortical white matter are nonspecific, however, statisticallyrepresentchronic microvascular ischemic changes.No hydrocephalus.Orbits are within normal limits. Prior bilateral lens surgery.No obstructive paranasal sinus disease.Additional findings: None.IMPRESSION:Unremarkable MRI of the brain.Electronically Signed By: Mariya Barrientos08/14/2022 15:07 CDTWorkstation Name: [id number] 11:27:50 Test Item Value Reference Range Interpretation Comments RPR SCREEN ([facility]) (test code = Nonreactive Nonreactive 420) POCT-GLUCOSE [id number] 11:00:52 Test Item Value Reference Range Interpretation Comments POC-GLUCOSE METER 140 mg/dL 70-110 H : TESTED A T [facility] 6720 ([employer]) (test code = [facility], 1538) [address]: Occupational Health Physician/Techni janie ID = [id number] for Cara Hernandez HEMOGLOBIN [id number] 09:00:17 Test Item Value Reference Range Interpretation Comments HEMOGLOBIN A1C 7.8 % See_Comment H [Automated m essage] ELECTROPHORESIS ([facility]) The system which (test code = 3811) generated this result transmitted ref erence range: <=5.6%. The reference range was not used to int erpret this result as normal/abnormal . "The A1c is measured using a NGSP-certified method. HbA1c value equal to or greater than 6.5% as thediagnosis cutoff for diabetes. An HbA1c value of 5.7- 6.4% indicates increased risk for diabetes (prediabetes)."Occupational Health Physician ID - ADMPOCT- GLUCOSE [id number] 06:12:45 Test Item Value Reference Range Interpretation Comments POC-GLUCOSE METER 103 mg/dL 70-110 : TESTED A T [facility] 6720 (BEAKER) (test code = [facility] [employer] [facility], 1538) [address]: Occupational Health Physician/Techni janie ID = [id number] for Darby Rondony CBC W/PLT COUNT & AUTO [id number] 04:05:45 Test Item Value Reference Range Interpretation Comments WHITE BLOOD CELL COUNT 12.6 K/ L 3.5-10.5 H (BEAKER) (test code = 775) RED BLOOD CELL COUNT 4.65 M/ L 3.93-5.22 (BEAKER) (test code = 761) HEMOGLOBIN (BEAKER) 12.3 GM/DL 11.2-15.7 (test code = 410) HEMATOCRIT (BEAKER) 40.8 % 34.1-44.9 (test code = 411) MEAN CORPUSCULAR 88 fL 79-95 VOLUME (BEAKER) (test code = 753) MEAN CORPUSCULAR 26.5 pg 25.6-32.2 HEMOGLOBIN (BEAKER) (test code = 751) MEAN CORPUSCULAR 30.1 GM/DL 32.2-35.5 L HEMOGLOBIN CONC (BEAKER) (test code = 752) RED CELL DISTRIBUTION 15.8 % 11.7-14.4 H WIDTH (BEAKER) (test code = 412) PLATELET COUNT 314 K/CU MM 150-450 Release resul t per (BEAKER) (test code = nurse 756) [id number] ant PLT results com pared to previous, clinical correl ation required. MEAN PLATELET VOLUME 10.6 fL 9.4-12.3 (BEAKER) (test code = 754) NUCLEATED RED BLOOD 0 /100 WBC 0-0 CELLS (BEAKER) (test code = 413) NEUTROPHILS RELATIVE 77 % PERCENT (BEAKER) (test code = 429) LYMPHOCYTES RELATIVE 18 % PERCENT (BEAKER) (test code = 430) MONOCYTES RELATIVE 4 % PERCENT (BEAKER) (test code = 431) EOSINOPHILS RELATIVE 0 % PERCENT (BEAKER) (test code = 432) BASOPHILS RELATIVE 0 % PERCENT (BEAKER) (test code = 437) NEUTROPHILS ABSOLUTE 9.71 K/ L 1.56-6.13 H COUNT (BEAKER) (test code = 670) LYMPHOCYTES ABSOLUTE 2.24 K/ L 1.18-3.74 COUNT (BEAKER) (test code = 414) MONOCYTES ABSOLUTE 0.48 K/ L 0.24-0.36 H COUNT (BEAKER) (test code = 415) EOSINOPHILS ABSOLUTE 0.02 K/ L 0.04-0.36 L COUNT (BEAKER) (test code = 416) BASOPHILS ABSOLUTE 0.03 K/ L 0.01-0.08 COUNT (BEAKER) (test code = 417) IMMATURE 0.60 % 0.00-1.00 GRANULOCYTES-RELATIVE PERCENT (BEAKER) (test code = 2801) LIPID [id number] 03:40:23 Test Item Value Reference Range Interpretation Comments TRIGLYCERIDES (BEAKER) (test code = 107 mg/dL 540) CHOLESTEROL (BEAKER) (test code = 214 mg/dL 631) HDL CHOLESTEROL (BEAKER) (test code 56 mg/dL = 976) LDL CHOLESTEROL CALCULATED (BEAKER) 137 mg/dL (test code = 633) Triglyceride Reference Range: Low Risk <150 Borderline 150-199 High Risk 200- 499 Very High Risk >=500Cholesterol Reference Range: Low Risk <200 Borderline 200-239 High Risk >240HDL Cholesterol Reference Range: Low Risk >=60 High Risk <40LDL Cholesterol Reference Range: Optimal <100 Near Optimal 100-129 Borderline 130-159 High 160-189 Very High >=190 Occupational Health Physician ID - ADMINBASIC METABOLIC [id number] 03:40:22 Test Item Value Reference Range Interpretation Comments SODIUM (BEAKER) 140 meq/L 136-145 (test code = 381) POTASSIUM 4.4 meq/L 3.5-5.1 (BEAKER) (test code = 379) CHLORIDE (BEAKER) 107 meq/L 98-107 (test code = 382) CO2 (BEAKER) 23 meq/L 22-29 (test code = 355) BLOOD UREA 19 mg/dL 7-21 NITROGEN (BEAKER) (test code = 354) CREATININE 0.83 mg/dL 0.57-1.25 (BEAKER) (test code = 358) GLUCOSE RANDOM 139 mg/dL 70-105 H (BEAKER) (test code = 652) CALCIUM (BEAKER) 9.1 mg/dL 8.4-10.2 (test code = 697) EGFR (BEAKER) 73 Interpretatio n of eGFR (test code = mL/min/1.73 values Stage De scription 1092) sq m Result G1 Darshana l or high >=90 G2 Mildly decreased 60-89 G3a Mildl y to moderately 45-5 9 G3b Moderately to s everely 30-44 G4 Severl y decreased 15-29 G5 Kidney failure <15Reported eGF R is based on the CKD-EPI 2020 equation that d oes not use a race coefficientEsti mated GFR is not as accur ate as Creatinine Mariah cheyenne in predicting glom erular filtration rate . Estimated GFR is not appl icable for dialysis patien ts Occupational Health Physician ID - ADMINPOCT-GLUCOSE [id number] 20:23:11 Test Item Value Reference Range Interpretation Comments POC-GLUCOSE METER 213 mg/dL 70-110 H : TESTED A T [facility] 6720 (BEAKER) (test code JANNIE [facility], = 1538) [address]: Occupational Health Physician/Techni janie ID = [id number] for SANDI BLANC Urinalysis Microscopic [id number] 16:43:16 Test Item Value Reference Range Interpretation Comments RBC, UA (test 3 See_Comment [Automated me ssage] code = 28468-6) The system w [employer] generated this result transmitted ref erence range: /HPF. Th e reference range was not used to int erpret this result as normal/abnormal . WBC, UA (test See_Comment [Automated me ssage] code = 5821-4) The system [facility] generated this result transmitted ref erence range: /HPF. Th e reference range was not used to int erpret this result as normal/abnormal . Bacteria, UA Few (test code = 12771-3) Mucus (test Rare code = 8247-9) Squam Epithel, 13 See_Comment [Automated m essage] UA (test code = The system w hic 39330-4) generated this result transmitted ref erence range: /HPF. Th e reference range was not used to int erpret this result as normal/abnormal . KRISH (test code Occupational Health Physician ID - tech = KRISH) [facility]INAL[facility] [id number] 16:43:16 Test Item Value Reference Range Interpretation Comments RBC UA (BEAKER) (test code = 519) 3 /HPF WBC UA (BEAKER) (test code = 520) < /HPF BACTERIA (BEAKER) (test code = 517) Few MUCUS (BEAKER) (test code = 1574) Rare SQUAMOUS EPITHELIAL (BEAKER) (test 13 /HPF code = 516) Occupational Health Physician ID - techUrinalysis with Microscopic If [id number] 16:42:35 Test Item Value Reference Range Interpretation Comments Color, UA (test code = Light Yellow 5778-6) Clarity, UA (test code = Clear 5767-9) Specific [place], UA (test 1.001-1.035 H code = 5811-5) pH, UA (test code = 6.0 5.0-8.0 5803-2) Protein, UA (test code = Negative Negative 56415-7) Glucose, UA (test code = >1000 mg/dL Negative A 365) Ketones, UA (test code = Negative Negative 2514-8) Bilirubin, UA (test code = Negative Negative 47220-3) Blood, UA (test code = Trace Negative A 88741-3) Nitrite, UA (test code = Positive Negative A 5802-4) Leukocytes, UA (test code Negative Negative = 5799-2) Urobilinogen, UA (test 0.2 0.2-1.0 code = 27955-4) Specimen Source (test code = 2795) KRISH (test code = KRISH) Occupational Health Physician ID - [auto] Lab Interpretation (test Abnormal code = 27598-2) [facility] WITH MICROSCOPIC IF [id number] 16:42:35 Test Item Value Reference Range Interpretation Comments COLOR (BEAKER) (test code = 470) Light Yellow CLARITY (BEAKER) (test code = Clear 469) SPECIFIC GRAVITY UA (BEAKER) > 1.001-1.035 H (test code = 468) PH UA (BEAKER) (test code = 467) 6.0 5.0-8.0 PROTEIN UA (BEAKER) (test code = Negative Negative 464) GLUCOSE UA (BEAKER) (test code = >1000 mg/dL Negative A 365) KETONES UA (BEAKER) (test code = Negative Negative 371) BILIRUBIN UA (BEAKER) (test code Negative Negative = 462) BLOOD UA (BEAKER) (test code = Trace Negative A 461) NITRITE UA (BEAKER) (test code = Positive Negative A 465) LEUKOCYTE ESTERASE UA (BEAKER) Negative Negative (test code = 466) UROBILINOGEN UA (BEAKER) (test 0.2 0.2-1.0 code = 463) SOURCE(BEAKER) (test code = 2795) Occupational Health Physician ID - [auto][id number] 16:28:16 Test Item Value Reference Range Interpretation Comments PARTIAL THROMBOPLASTIN TIME 24.3 seconds 22.5-36.0 (BEAKER) (test code = 760) PROTHROMBIN [id number] 16:27:33 Test Item Value Reference Range Interpretation Comments PROTIME (BEAKER) (test code = 12.5 seconds 11.9-14.2 759) INR (BEAKER) (test code = 370) 0.95 <=5.90 RECOMMENDED COUMADIN/WARFARIN INR THERAPY RANGESSTANDARD DOSE: 2.0 - 3.0 Includes: PROPHYLAXIS for venous thrombosis, systemic embolization; TREATMENT for venous thrombosis and/or pulmonary embolus.HIGH RISK: Target INR is 2.5-3.5 for patients with mechanical heart valves.POCT-GLUCOSE [id number] 16:26:18 Test Item Value Reference Range Interpretation Comments POC-GLUCOSE METER 142 mg/dL 70-110 H : TESTED A T [facility] 6720 (KEVAN) (test code = WILLIAM Verma [place], 1538) [address]: Occupational Health Physician/Techni janie ID = [id number] for CLOTILDE GILLES FARFAN CT BRAIN CEREBRAL PERFUSION [id number] 16:04:12 [facility] : 1945 Sex: FCTA BRAIN, CT BRAIN CEREBRAL PERFUSION ANALYSIS, CTA CAROTIDINDICATION: Suspected strokeCOMPARISON: NoneTECHNIQUE: Rapid acquisition spiral images were obtained between the aortic archand the cranial vertex during intravenous contrast infusion toreconstruct axial images and angiographic 3D maximum intensityprojections (MIP) .Three dimensional reformatted images were created bassam dedicated workstation. Precont rast images of the brain were alsoobtained. Perfusion imaging technique:Arterial input function: ACAVenous outflow function: TorcularSite of normal perfusion: right anterior territoryStenosis evaluation reported in compliance with NASCET criteria.DOSE REDUCTION: Dose modulation, iterative reconstruction, and/orweight-based adjustment of the mA/kV was utilized to reduce theradiation dose to as low as reasonably achievable.FINDINGS:NECT BRAIN:NONCONTRAST CT HEAD: Cerebral parenchyma: Mild generalized parenchymal volume loss ispresent.Midline structures: Normally positioned.Cerebellum and brainstem: Normal.Ventricles: Normal volume.Extra-axial spaces: Unremarkable.Calvarium and skull base: Intact. Hyperostosis frontalis is present.Paranasal sinuses and mastoid air cells: Mild mucosal thickening withinthe ethmoid sinuses. Small fluid level in the left maxillary sinus. Mildmucosal thickening in the right maxillary sinus.Orbital contents: Included portions unremarkable.LinesCTA BRAIN:Internal carotid arteries: Petrous, cavernous and supraclinoid portionspatent. Scattered atherosclerotic vascular calcifications.Middle cerebral arteries: Patent to distal branches.Anterior cerebral arteries: Patent. Intact Acomm.Basilar system: Patent vertebrobasilar system.Posterior cerebral arteries:Patent beyond the quadrigeminal segments.Venous opacification: Major dural sinuses unremarkable for bolus timing.Additional findings: None.CTA NECK:Common carotid arteries: The common carotid arteries are normal in size.Retrocrural course of the bilateral common carotid arteries.Bifurcations: show less than 50% atherosclerotic narrowing by NASCETcriteria Scattered atherosclerotic vascular calcifications.Cervical internal carotid arteries: No flow limiting stenosis.Intracranial course of the right proximal cervical segment.Vertebral arteries: Codominant. No origin stenosis.Arch anatomy: ConventionalCT PERFUSION PARAMETRIC MAPS: CBF: SymmetricMTT: SymmetricCBV: SymmetricTmax: SymmetricNonvascular findings:Osseous structures: No acute osseous abnormality. Intact calvarium andskull base. Moderate spondylosis and facet arthropathy are presentwithin the spine.Cervical soft tissues: No adenopathy. Patent aerodigestivetract.Lung apices: No apical consolidation or pneumothorax.IMPRESSION:1. No acute vascular abnormality in the head and neck.2. Calcified plaque with less than than 50% atherosclerotic narrowingby NASCET criteria at the carotid bifurcations.3. Symmetric perfusion indices. No acute stroke identified.Electronically Signed By: Rudy Og08/13/2022 16:06 CDTWorkstation Name: [id number] 16:04:12 [facility] : 1945 Sex: FCTA BRAIN, CT BRAIN CEREBRAL PERFUSION ANALYSIS, CTA CAROTIDINDICATION: Suspected strokeCOMPARISON: NoneTECHNIQUE: Rapid acquisition spiral images were obtained between the aortic archand the cranial vertex during intravenous contrast infusion toreconstruct axial images and angiographic 3D maximum intensityprojections (MIP) .Three dimensional reformatted images were created bassam dedicated workstation. Precont rast images of the brain were alsoobtained. Perfusion imaging technique:Arterial input function: ACAVenous outflow function: TorcularSite of normal perfusion: right anterior territoryStenosis evaluation reported in compliance with NASCET criteria.DOSE REDUCTION: Dose modulation, iterative reconstruction, and/orweight-based adjustment of the mA/kV was utilized to reduce theradiation dose to as low as reasonably achievable.FINDINGS:NECT BRAIN:NONCONTRAST CT HEAD: Cerebral parenchyma: Mild generalized parenchymal volume loss ispresent.Midline structures: Normally positioned.Cerebellum and brainstem: Normal.Ventricles: Normal volume.Extra-axial spaces: Unremarkable.Calvarium and skull base: Intact. Hyperostosis frontalis is present.Paranasal sinuses and mastoid air cells: Mild mucosal thickening withinthe ethmoid sinuses. Small fluid level in the left maxillary sinus. Mildmucosal thickening in the right maxillary sinus.Orbital contents: Included portions unremarkable.LinesCTA BRAIN:Internal carotid arteries: Petrous, cavernous and supraclinoid portionspatent. Scattered atherosclerotic vascular calcifications.Middle cerebral arteries: Patent to distal branches.Anterior cerebral arteries: Patent. Intact Acomm.Basilar system: Patent vertebrobasilar system.Posterior cerebral arteries:Patent beyond the quadrigeminal segments.Venous opacification: Major dural sinuses unremarkable for bolus timing.Additional findings: None.CTA NECK:Common carotid arteries: The common carotid arteries are normal in size.Retrocrural course of the bilateral common carotid arteries.Bifurcations: show less than 50% atherosclerotic narrowing by NASCETcriteria Scattered atherosclerotic vascular calcifications.Cervical internal carotid arteries: No flow limiting stenosis.Intracranial course of the right proximal cervical segment.Vertebral arteries: Codominant. No origin stenosis.Arch anatomy: ConventionalCT PERFUSION PARAMETRIC MAPS: CBF: SymmetricMTT: SymmetricCBV: SymmetricTmax: SymmetricNonvascular findings:Osseous structures: No acute osseous abnormality. Intact calvarium andskull base. Moderate spondylosis and facet arthropathy are presentwithin the spine.Cervical soft tissues: No adenopathy. Patent aerodigestivetract.Lung apices: No apical consolidation or pneumothorax.IMPRESSION:1. No acute vascular abnormality in the head and neck.2. Calcified plaque with less than than 50% atherosclerotic narrowingby NASCET criteria at the carotid bifurcations.3. Symmetric perfusion indices. No acute stroke identified.Electronically Signed By: Rudy Og08/13/2022 16:06 CDTWorkstation Name: [id number] 16:04:12 [facility] : 1945 Sex: FCTA BRAIN, CT BRAIN CEREBRAL PERFUSION ANALYSIS, CTA CAROTIDINDICATION: Suspected strokeCOMPARISON: NoneTECHNIQUE: Rapid acquisition spiral images were obtained between the aortic archand the cranial vertex during intravenous contrast infusion toreconstruct axial images and angiographic 3D maximum intensityprojections (MIP) .Three dimensional reformatted images were created bassam dedicated workstation. Precont rast images of the brain were alsoobtained. Perfusion imaging technique:Arterial input function: ACAVenous outflow function: TorcularSite of normal perfusion: right anterior territoryStenosis evaluation reported in compliance with NASCET criteria.DOSE REDUCTION: Dose modulation, iterative reconstruction, and/orweight-based adjustment of the mA/kV was utilized to reduce theradiation dose to as low as reasonably achievable.FINDINGS:NECT BRAIN:NONCONTRAST CT HEAD: Cerebral parenchyma: Mild generalized parenchymal volume loss ispresent.Midline structures: Normally positioned.Cerebellum and brainstem: Normal.Ventricles: Normal volume.Extra-axial spaces: Unremarkable.Calvarium and skull base: Intact. Hyperostosis frontalis is present.Paranasal sinuses and mastoid air cells: Mild mucosal thickening withinthe ethmoid sinuses. Small fluid level in the left maxillary sinus. Mildmucosal thickening in the right maxillary sinus.Orbital contents: Included portions unremarkable.LinesCTA BRAIN:Internal carotid arteries: Petrous, cavernous and supraclinoid portionspatent. Scattered atherosclerotic vascular calcifications.Middle cerebral arteries: Patent to distal branches.Anterior cerebral arteries: Patent. Intact Acomm.Basilar system: Patent vertebrobasilar system.Posterior cerebral arteries:Patent beyond the quadrigeminal segments.Venous opacification: Major dural sinuses unremarkable for bolus timing.Additional findings: None.CTA NECK:Common carotid arteries: The common carotid arteries are normal in size.Retrocrural course of the bilateral common carotid arteries.Bifurcations: show less than 50% atherosclerotic narrowing by NASCETcriteria Scattered atherosclerotic vascular calcifications.Cervical internal carotid arteries: No flow limiting stenosis.Intracranial course of the right proximal cervical segment.Vertebral arteries: Codominant. No origin stenosis.Arch anatomy: ConventionalCT PERFUSION PARAMETRIC MAPS: CBF: SymmetricMTT: SymmetricCBV: SymmetricTmax: SymmetricNonvascular findings:Osseous structures: No acute osseous abnormality. Intact calvarium andskull base. Moderate spondylosis and facet arthropathy are presentwithin the spine.Cervical soft tissues: No adenopathy. Patent aerodigestivetract.Lung apices: No apical consolidation or pneumothorax.IMPRESSION:1. No acute vascular abnormality in the head and neck.2. Calcified plaque with less than than 50% atherosclerotic narrowingby NASCET criteria at the carotid bifurcations.3. Symmetric perfusion indices. No acute stroke identified.Electronically Signed By: Rudy Og08/13/2022 16:06 CDTWorkstation Name: [id number] 16:02:01 Test Item Value Reference Range Interpretation Comments VITAMIN B12 (BEAKER) (test code = 335 pg/mL 213-816 774) Occupational Health Physician ID - BSHIV-1 ANTIGEN WITH HIV-1/2 [id number] 15:51:08 Test Item Value Reference Range Interpretation Comments HIV-1 ANTIGEN WITH HIV 1\\T\\2 Nonreactive Nonreactive ANTIBODY (2) (BEAKER) (test code = 2586) Occupational Health Physician ID - ADMINTSH/FREE T4 IF [id number] 15:51:07 Test Item Value Reference Range Interpretation Comments THYROID STIMULATING HORMONE 0.870 uIU/mL 0.350-4.940 (BEAKER) (test code = 772) Occupational Health Physician ID - ADMINHIGH SENSITIVITY TROPONIN [id number] 15:36:33 Test Item Value Reference Range Interpretation Comments HIGH SENSITIVITY TROPONIN I (test 4 pg/ml <=17 code = 6419779) Occupational Health Physician ID - ADMINThe STATEMENT REQUEST CLERK STAT High Sensitivity Troponin-I results should be used in conjunction with other diagnostic information such as ECG, clinical observations and information, and patientsymptoms to aid in the diagnosis of PA. COMPREHENSIVE METABOLIC [id number] 15:35:35 Test Item Value Reference Range Interpretation Comments TOTAL PROTEIN 7.2 gm/dL 6.0-8.3 (BEAKER) (test code = 770) ALBUMIN (BEAKER) 4.0 g/dL 3.5-5.0 (test code = 1145) ALKALINE 128 U/L 40-150 PHOSPHATASE (BEAKER) (test code = 346) BILIRUBIN TOTAL 0.3 mg/dL 0.2-1.2 (BEAKER) (test code = 377) SODIUM (BEAKER) 139 meq/L 136-145 (test code = 381) POTASSIUM (BEAKER) 4.6 meq/L 3.5-5.1 (test code = 379) CHLORIDE (BEAKER) 107 meq/L 98-107 (test code = 382) CO2 (BEAKER) (test 23 meq/L 22-29 code = 355) BLOOD UREA 13 mg/dL 7-21 NITROGEN (BEAKER) (test code = 354) CREATININE 0.74 mg/dL 0.57-1.25 (BEAKER) (test code = 358) GLUCOSE RANDOM 134 mg/dL 70-105 H (BEAKER) (test code = 652) CALCIUM (BEAKER) 9.1 mg/dL 8.4-10.2 (test code = 697) AST (SGOT) 26 U/L 5-34 (BEAKER) (test code = 353) ALT (SGPT) 31 U/L 6-55 (BEAKER) (test code = 347) EGFR (BEAKER) 83 Interpretatio n of eGFR (test code = 1092) mL/min/1.[address] age Description sq m Result G1 Darshana l or high >=90 G2 Mildly decreased 60-89 G3a Mildl y to moderately 45-5 9 G3b Moderately to s everely 30-44 G4 Severl y decreased 15-29 G5 Kidney failure <15Reported eGF R is based on the CKD-EPI 2020 equation that d oes not use a race coefficientEsti mated GFR is not as accur ate as Creatinine Mariah quinn in predicting glom erular filtration rate . Estimated GFR is not appl icable for dialysis patien ts Occupational Health Physician ID - BSC-REACTIVE [id number] 15:35:35 Test Item Value Reference Range Interpretation Comments C-REACTIVE PROTEIN (BEAKER) (test 1.57 mg/dL 0.00-0.50 H code = 676) Occupational Health Physician ID - BSPOCT-GLUCOSE [id number] 15:24:18 Test Item Value Reference Range Interpretation Comments POC-GLUCOSE METER 135 mg/dL 70-110 H : TESTED A T [facility] 6720 (BEAKER) (test code = WILLIAM Bayron [facility], 1538) [address]: Occupational Health Physician/Techni janie ID = [id number] for GILLES PALMER CBC W/PLT COUNT & AUTO [id number] 15:23:04 Test Item Value Reference Range Interpretation Comments WHITE BLOOD CELL COUNT (BEAKER) 10.4 K/ L 3.5-10.5 (test code = 775) RED BLOOD CELL COUNT (BEAKER) 4.66 M/ L 3.93-5.22 (test code = 761) HEMOGLOBIN (BEAKER) (test code = 12.4 GM/DL 11.2-15.7 410) HEMATOCRIT (BEAKER) (test code = 41.3 % 34.1-44.9 411) MEAN CORPUSCULAR VOLUME (BEAKER) 89 fL 79-95 (test code = 753) MEAN CORPUSCULAR HEMOGLOBIN 26.6 pg 25.6-32.2 (BEAKER) (test code = 751) MEAN CORPUSCULAR HEMOGLOBIN CONC 30.0 GM/DL 32.2-35.5 L (BEAKER) (test code = 752) RED CELL DISTRIBUTION WIDTH 15.8 % 11.7-14.4 H (BEAKER) (test code = 412) PLATELET COUNT (BEAKER) (test 186 K/CU MM 150-450 code = 756) MEAN PLATELET VOLUME (BEAKER) 10.4 fL 9.4-12.3 (test code = 754) NUCLEATED RED BLOOD CELLS 0 /100 WBC 0-0 (BEAKER) (test code = 413) NEUTROPHILS RELATIVE PERCENT 81 % (BEAKER) (test code = 429) LYMPHOCYTES RELATIVE PERCENT 15 % (BEAKER) (test code = 430) MONOCYTES RELATIVE PERCENT 2 % (BEAKER) (test code = 431) EOSINOPHILS RELATIVE PERCENT 2 % (BEAKER) (test code = 432) BASOPHILS RELATIVE PERCENT 1 % (BEAKER) (test code = 437) NEUTROPHILS ABSOLUTE COUNT 8.45 K/ L 1.56-6.13 H (BEAKER) (test code = 670) LYMPHOCYTES ABSOLUTE COUNT 1.51 K/ L 1.18-3.74 (BEAKER) (test code = 414) MONOCYTES ABSOLUTE COUNT (BEAKER) 0.20 K/ L 0.24-0.36 L (test code = 415) EOSINOPHILS ABSOLUTE COUNT 0.16 K/ L 0.04-0.36 (BEAKER) (test code = 416) BASOPHILS ABSOLUTE COUNT (BEAKER) 0.06 K/ L 0.01-0.08 (test code = 417) IMMATURE GRANULOCYTES-RELATIVE 0.60 % 0.00-1.00 PERCENT (BEAKER) (test code = 2801) Hemoglobin A1c measurement device [id number] 10:07:47 Test Item Value Reference Range Interpretation Comments Hemoglobin A1C Fingerstick: (test code 6.9 = Hemoglobin A1C Fingerstick:) [facility] in Capillary [id number] 10:04:25 Test Item Value Reference Range Interpretation Comments Blood Glucose: mg/dl (test code = Blood 112 Glucose: mg/dl) [facility] [id number] 11:02:48 Test Item Value Reference Range Interpretation Comments Hemoglobin A1C Fingerstick: (test code 7.2 = Hemoglobin A1C Fingerstick:) [facility]/volume] in Capillary [id number] 10:55:53 Test Item Value Reference Range Interpretation Comments Blood Glucose: mg/dl (test code = Blood 247 Glucose: mg/dl) [facility]
[2022-10-23 17:23] LABS: Absolute Lymphocytes (CBC) 0.7 K/uL (0.7-4.9); Hematocrit 39.6 % (36.0-45.0); Lymphocytes % 5.7 % (15.3-44.8); MCV 79.9 fL (80-100); MPV 8.4 fL (7.6-11.3); Platelets 306 thou/uL (152-406); RBC Red Blood Cell Count 4.96 M/uL (3.86-4.86)
--- NOTE | 2022-10-23 17:44 | RAD REPORT ---
EXAM DESCRIPTION: CT - CTHCSPWOC - 10/23/2022 4:50 pm CLINICAL HISTORY: Trauma, head and neck injury. fall COMPARISON: CT MULTIPLANAR RECONSTRUCTION dated 10/24/2011; [id number] dated 12/27/2008; Ct Stroke Brain Wo Cont dated 08/13/2022 TECHNIQUE: Axial thin cut noncontrast CT images of the head were obtained. Axial thin cut noncontrast CT images of the cervical spine were obtained. Multiplanar reformatted images were generated and reviewed. All CT scans are performed using dose optimization technique as appropriate and may include automated exposure control or mA/KV adjustment according to patient size. FINDINGS: CT HEAD WITHOUT CONTRAST: No acute hemorrhage, hydrocephalus or extra-axial collection is identified.Mild deep white matter are as of hypoattenuation are stable and nonspecific, may suggest sequelae of chronic small vessel ischem ic changes.No areas of brain edema or midline shift. The paranasal sinuses and mastoids are clear.The calvarium is intact. CT CERVICAL SPINE WITHOUT CONTRAST: No fracture or subluxation. Mild degenerative changes without high-grade canal stenosis. Up to modera te bilateral bony foraminal narrowing on the left at C4-5 and C5-6, and on the right at C6-7 is secon john to uncovertebral joint and facet remodeling. No prevertebral soft tissues swelling is identified . IMPRESSION: No acute traumatic intracranial or cervical spine findings. Chronic findings as above.
[2022-10-23] MEDS ORDERED: NA CHLORIDE 0.9% 1,000 ML ONE (17:47)
--- NOTE | 2022-10-23 17:47 | RAD REPORT ---
EXAM DESCRIPTION: CT - Abdomen Pelvis Wo Contrast - 10/23/2022 4:50 pm CLINICAL HISTORY: diarrhea COMPARISON: Abdomen Pelvis Wo Contrast dated 10/21/2022; Abdomen Pelvis Wo Contrast dated 12/18/19 22; Stone Protocol dated 05/04/2019; Stone Protocol dated 04/29/2019 TECHNIQUE: Thin cut axial CT imaging of the abdomen and pelvis was performed without IV contrast. Mu ltiplanar reformats were generated and reviewed. All CT scans are performed using dose optimization technique as appropriate and may include automated exposure control or mA/KV adjustment according to patient size. FINDINGS: No suspicious findings in the lung bases. The liver, spleen, and pancreas show no suspicious findings. Gallbladder was surgically removed. Symmetric renal contour, without suspicious parenchymal findings within limits of noncontrast techniq ue. Exophytic right upper to midpole 2.7 cm cystic lesion stable. No evidence of radiopaque calculi o r hydroureteronephrosis. Small paraesophageal hernia. No dilated bowel loops or bowel wall thickening. Some fluid filling of n ondistended large bowel to the level of the sigmoid is nonspecific, but could relate to diarrheal sta te. No free air, free fluid or inflammatory stranding. No hernia, mass or bulky lymphadenopathy. The urinary bladder is without significant finding. No suspicious bony findings. Stable superior endplate fracture at L2 with moderate compression deform ity. IMPRESSION: Some fluid filling of nondistended large bowel is nonspecific, and may relate to diarrhe al state. No other acute intra-abdominal process.
--- NOTE | 2022-10-23 17:49 | RAD REPORT ---
EXAM DESCRIPTION: RADChest Single View10/23/2022 5:01 pm CLINICAL HISTORY: FEVER COMPARISON: Chest Pa And Lat (2 Views) dated 09/30/2022; Chest Single View dated 08/13/2022; Chest Pa A nd Lat (2 Views) dated 07/10/2022; Chest Pa And Lat (2 Views) dated 05/18/2022 TECHNIQUE: Portable AP view of the chest. FINDINGS: The lungs are clear. No pneumothorax or effusion. The cardiomediastinal contours are unre markable. IMPRESSION: No acute cardiopulmonary process.
[2022-10-23 18:07] LABS: Protime INR 1.26; Specific Gravity > 1.030 (1.005-1.030); Urine Bacteria <20 /HPF (<20); Urine Bilirubin NEGATIVE (Negative); Urine Blood Negative (Negative); Urine Clarity Turbid (Clear); Urine Color Light-Yellow (Yellow); Urine Glucose 4+ (Over) (Negative); Urine Mucus Slight /HPF (None Seen); Urine Protein NEGATIVE (Negative); Urine RBC <5 /HPF (None Seen); Urine Urobilinogen Normal (Normal); Urine pH 5.5 (5.0-7.0)
[2022-10-23 18:22] LABS: Albumin 3.2 g/dL (3.4-5.0); Bilirubin Total 0.2 mg/dL (0.2-1.0); Potassium 4.1 mEq/L (3.5-5.1); Protein, Total 7.2 g/dL (6.4-8.2)
--- NOTE | 2022-10-23 19:33 | EDPHYS ---
Physician Documentation [facility] Name: Kiley Ortega Age: 77 yrs Sex: Female : 1945 Arrival Date: 10/23/2022 Time: 15:55 Bed 20 Private MD: ED Physician Fede Aguilar HPI: 10/23 16:25 This 77 yrs old Female presents to ER via EMS with complaints of Fever, General ms3 Weakness, Diarrhea. 16:25 77-year-old female with past medical history of right-sided breast cancer, COPD, ms3 myopathy, kidney stones, hypertension presents for fever, diarrhea, generalized weakness that began Friday. Patient states she is having severe discomfort. Patient denies alleviating or inciting factors. Historical: - Allergies: 16:15 Iodinated Contrast Media - IV Dye; db 16:15 Tegretol; db 16:15 trelegy; db - PMHx: 16:15 breast cancer-right side; COPD; Myopathy; Kidney stone; Hypertension; cervical cancer; db neuropathy; Diabetes - NIDDM; TIA; - PSHx: 16:15 Total abdominal hysterectomy; db - Immunization history:: Adult Immunizations unknown. - Social history:: Smoking status: Patient denies any tobacco usage or history of. ROS: 16:25 Constitutional: Negative for fever, and chills. Neck: Negative for injury, pain, and ms3 swelling, Cardiovascular: Negative for chest pain, and palpitations. Respiratory: Negative for shortness of breath, cough, wheezing, and pleuritic chest pain. 16:25 MS/Extremity: Negative for injury and deformity, Skin: Negative for injury, rash, and discoloration. 16:25 Abdomen/GI: Positive for abdominal pain, nausea, vomiting, and diarrhea. 16:25 All other systems are negative. Exam: 16:25 Constitutional: This is a well developed, well nourished patient who is awake, alert, ms3 and in no acute distress. Head/Face: Normocephalic, atraumatic. Chest/axilla: Normal chest wall appearance and motion. Nontender with no deformity. Cardiovascular: Regular rate and rhythm with a normal S1 and S2. No gallops, murmurs, or rubs. Normal PMI, no JVD. No pulse deficits. Respiratory: Lungs have equal breath sounds bilaterally, clear to auscultation and percussion. No rales, rhonchi or wheezes noted. No increased work of breathing, no retractions or nasal flaring. Abdomen/GI: Soft, non-tender, with normal bowel sounds. No distension or tympany. No guarding or rebound. No evidence of tenderness throughout. Skin: Warm, dry with normal turgor. Normal color with no rashes, no lesions, and no evidence of cellulitis. MS/ Extremity: Pulses equal, no cyanosis. Neurovascular intact. Full, normal range of motion. 21:15 ECG was reviewed by the Attending Physician. ms3 Vital Signs: 15:58 BP 98 / 53; Pulse 88; Resp 16; Temp 100.8(O); Pulse Ox 95% on R/A; Weight 90.26 kg; db Height 5 ft. 2 in. ; 16:48 BP 83 / 59; Pulse 91; Resp 16; Pulse Ox 95% on R/A; db 17:00 BP 101 / 60; Pulse 88; Resp 16; Pulse Ox 97% on R/A; db 17:30 BP 123 / 47; Pulse 89; Resp 16; Pulse Ox 96% on R/A; db 19:00 BP 127 / 52; Pulse 75; Resp 17; Temp 98.6(O); Pulse Ox 97% on R/A; jb4 20:00 BP 129 / 61; Pulse 78; Resp 16; Pulse Ox 97% on R/A; jb4 15:58 Body Mass Index 36.40 (90.26 kg, 157.48 cm) db 16:48 NOTIFIED PROVIDER OF BP db MDM: 16:11 Patient medically screened. ms3 16:25 Differential diagnosis: viral Infection, bacterial infection, URI, pneumonia UTI. ms3 19:33 Data reviewed: vital signs, nurses notes, lab test result(s), radiologic studies, and ms3 as a result, I will admit patient. Consideration of Admission/Observation Patient was admitted/placed on observation. Management of patient was discussed with the following: Hospitalist: Dr. Franco. I considered the following discharge prescriptions or medication management in the emergency department Medications were administered in the Emergency Department. See MAR. Independent interpretation of the following test(s) in the Emergency Department CT Scan: My interpretation is CT images reviewed by me do not reveal bowel obstruction or free air. Counseling: I had a detailed discussion with the patient and/or guardian regarding the historical points, exam findings, and any diagnostic results supporting the discharge/admit diagnosis, lab results, radiology results, the need for further work-up and treatment in the hospital. 10/23 16:11 Order name: Blood Culture Adult (2) ms3 10/23 16:11 Order name: CBC with Diff; Complete Time: 17:47 ms3 10/23 16:11 Order name: CMP; Complete Time: 18:25 ms3 10/23 16:11 Order name: Lactate w/ 2H reflex if indic.; Complete Time: 18:09 ms3 10/23 16:11 Order name: Protime (+inr); Complete Time: 18:09 ms3 10/23 16:11 Order name: Ptt, Activated; Complete Time: 18:09 ms3 10/23 16:11 Order name: Urinalysis w/ reflexes; Complete Time: 18:09 ms3 10/23 16:45 Order name: Glucose, Ancillary Testing; Complete Time: 17:47 EDMS 10/23 18:25 Order name: COVID-19 SARS RT PCR; Complete Time: 19:47 ms3 10/23 18:25 Order name: Flu; Complete Time: 19:47 ms3 10/23 19:58 Order name: CBC with Automated Diff EDMS 10/23 19:58 Order name: CBC with Automated Diff EDMS 10/23 19:58 Order name: Comprehensive Metabolic Panel EDMS 10/23 19:58 Order name: Comprehensive Metabolic Panel EDMS 10/23 16:11 Order name: Chest Single View XRAY; Complete Time: 17:52 ms3 10/23 16:31 Order name: Abdomen ; Complete Time: 17:52 EDMS 10/23 16:38 Order name: CT Head C Spine; Complete Time: 17:47 ms3 10/23 16:11 Order name: EKG; Complete Time: 16:11 ms3 10/23 19:58 Order name: Heart Healthy EDMS 10/23 16:11 Order name: Accucheck; Complete Time: 16:51 ms3 10/23 16:11 Order name: Cardiac monitoring; Complete Time: 16:51 ms3 10/23 16:11 Order name: EKG - Nurse/Tech; Complete Time: 17:38 ms3 09/13 16:11 Order name: IV Saline Lock - Large Bore; Complete Time: 17:38 ms3 10/23 16:11 Order name: Labs collected and sent; Complete Time: 17:38 ms3 10/23 16:11 Order name: O2 Per Protocol; Complete Time: 16:51 ms3 10/23 16:11 Order name: O2 Sat Monitoring; Complete Time: 16:51 ms3 10/23 16:11 Order name: Vital Signs; Complete Time: 16:51 ms3 10/23 17:27 Order name: Misc. Order: recollect green and blue tubes; Complete Time: 17:51 kb EC:15 Rate is 84 beats/min. Rhythm is regular. QRS [place] is Normal. OK interval is normal. QRS ms3 interval is normal. Clinical impression: Normal ECG. Interpreted by me. Reviewed by me. Administered Medications: 16:28 Drug: Acetaminophen PO 1000 mg Route: PO; db 17:35 Drug: NS 0.9% IV 1000 ml Route: IV; Rate: 1 bolus; Site: left antecubital; db Point of Care Testing: Blood Glucose: 16:33 Blood Glucose: 222 mg/dL; db Ranges: Critical Glucose Levels:Adult <50 mg/dl or >400 mg/dl <40 mg/dl or >180 mg/dl Disposition Summary: 10/23/22 19:33 Hospitalization Ordered Hospitalization Status: Observation ms3 Provider: Jesus Franco ms3 Location: Telemetry/[facility] (observation) ms3 Condition: Stable ms3 Problem: new ms3 Symptoms: are unchanged ms3 Bed/Room Type: Standard ms3 Room Assignment: 213(10/23/22 19:48) as6 Diagnosis - Diarrhea, unspecified ms3 - Fever, unspecified ms3 - Hypotension, unspecified ms3 Forms: - Medication Reconciliation Form ms3 - SBAR form ms3 - Leadership Thank You Letter ms3 Signatures: Dispatcher [employer] EDMS Christen Maya, SHANNA-C PROP MAKER-Fede Comer DO DO ms3 Harish Sargent RN RN as6 Kristel Morales RN RN db Corrections: (The following items were deleted from the chart) 16:31 16:11 Abdomen Pelvis W Con+CT.RAD.BRZ ordered. EDNH EDMS 19:48 19:33 ms3 as6
--- NOTE | 2022-10-23 19:33 | ER ---
Nurse's Notes [facility] [place] Name: Kiley Ortega Age: 77 yrs Sex: Female : 1945 Arrival Date: 10/23/2022 Time: 15:55 Bed 20 Private MD: Diagnosis: Diarrhea, unspecified;Fever, unspecified;Hypotension, unspecified Presentation: 10/23 15:58 Chief complaint: EMS states: PATIENT CALLED EMS TODAY AFTER FEELING WEAK AND FALLING. db STATES FELT LIKE "BLACKED OUT". HURT LEFT SHOULDER. STATES LAST FRIDAY HAD FLU AND RSV VACCINE AND THEN STARTED HAVING DIARRHEA, VOMITING. STATES DIARRHEA X 1 WEEK. YESTERDAY HAD A BLADDER PROCEDURE. SYMPTOMS SLOWED DOWN YESTERDAY THEN GOT WORSE AGAIN THIS AM. Coronavirus screen: Vaccine status: Patient reports receiving the 2nd dose of the covid vaccine. Client denies travel out of the [place] in the last 14 days. At this time, the client does not indicate any symptoms associated with coronavirus-19. Ebola Screen: Patient negative for fever greater than or equal to 101.5 degrees Fahrenheit, and additional compatible Ebola Virus Disease symptoms Patient denies exposure to infectious person. Patient denies travel to an Ebola-affected area in the 21 days before illness onset. No symptoms or risks identified at this time. Initial Sepsis Screen: Does the patient meet any 2 criteria? No. Patient's initial sepsis screen is negative. Does the patient have a suspected source of infection? No. Patient's initial sepsis screen is negative. Risk Assessment: Do you want to hurt yourself or someone else? Patient reports no desire to harm self or others. Onset of symptoms was October 23, 2022. 15:58 Method Of Arrival: EMS: [facility] db 15:58 Acuity: SHELLEY 2 db Triage Assessment: 16:15 General: Appears in no apparent distress. comfortable, Behavior is calm, cooperative. db Pain: Complains of pain in abdomen. GI: Abdomen is obese. Historical: - Allergies: 16:15 Iodinated Contrast Media - IV Dye; db 16:15 Tegretol; db 16:15 trelegy; db - PMHx: 16:15 breast cancer-right side; COPD; Myopathy; Kidney stone; Hypertension; cervical cancer; db neuropathy; Diabetes - NIDDM; TIA; - PSHx: 16:15 Total abdominal hysterectomy; db - Immunization history:: Adult Immunizations unknown. - Social history:: Smoking status: Patient denies any tobacco usage or history of. Screenin:38 [facility] ED Fall Risk Assessment (Adult) History of falling in the last 3 months, db including since admission Yes- physiologic fall (2 pts) Confusion or Disorientation No (0 pts) Intoxicated or Sedated No (0 pts) Impaired Gait Yes (1 pt) Mobility Assist Device Used Yes (1 pt) Altered Elimination No (0 pt) Score/Fall Risk Level 3 or more points = High Risk Oriented to surroundings, Maintained a safe environment. Abuse screen: Denies threats or abuse. Denies injuries from another. Nutritional screening: No deficits noted. Tuberculosis screening: No symptoms or risk factors identified. Assessment: 16:37 Reassessment: PT TO CT. db 17:12 Reassessment: Patient appears in no apparent distress at this time. NS 1 LITER STARTED db AFTER OBTAINING IV ACCESS. 17:39 Reassessment: Patient appears in no apparent distress at this time. PATIENT HAD BOWEL db MOVEMENT LOOSE WATERY STOOLS IN BRIEF. CHANGED AND CLEANED PATIENT. NO SKIN BREAK DOWN NOTED. 17:52 Reassessment: Patient appears in no apparent distress at this time. Patient and/or db family updated on plan of care and expected duration. Pain level reassessed. Patient is alert, oriented x 3, equal unlabored respirations, skin warm/dry/pink. Neuro: Level of Consciousness is awake, alert, obeys commands, Oriented to person, place, time, situation. 18:30 Reassessment: Patient appears in no apparent distress at this time. Patient and/or db family updated on plan of care and expected duration. Pain level reassessed. Patient is alert, oriented x 3, equal unlabored respirations, skin warm/dry/pink. 19:02 Reassessment: PATIENT BRIEF CHANGED. DIARRHEA BOWEL MOVEMENT CLEANED. GI: Last BM at db 19:03. Reports diarrhea. 19:03 Reassessment: REPORT GIVEN TO YUNIOR PIERSON. db 19:15 Reassessment: Patient appears in no apparent distress at this time. Patient and/or jb4 family updated on plan of care and expected duration. Pain level reassessed. Patient is alert, oriented x 3, equal unlabored respirations, skin warm/dry/pink. 20:18 Reassessment: Patient appears in no apparent distress at this time. Patient and/or jb4 family updated on plan of care and expected duration. Pain level reassessed. Patient is alert, oriented x 3, equal unlabored respirations, skin warm/dry/pink. Vital Signs: 15:58 BP 98 / 53; Pulse 88; Resp 16; Temp 100.8(O); Pulse Ox 95% on R/A; Weight 90.26 kg; db Height 5 ft. 2 in. ; 16:48 BP 83 / 59; Pulse 91; Resp 16; Pulse Ox 95% on R/A; db 17:00 BP 101 / 60; Pulse 88; Resp 16; Pulse Ox 97% on R/A; db 17:30 BP 123 / 47; Pulse 89; Resp 16; Pulse Ox 96% on R/A; db 19:00 BP 127 / 52; Pulse 75; Resp 17; Temp 98.6(O); Pulse Ox 97% on R/A; jb4 20:00 BP 129 / 61; Pulse 78; Resp 16; Pulse Ox 97% on R/A; jb4 15:58 Body Mass Index 36.40 (90.26 kg, 157.48 cm) db 16:48 NOTIFIED PROVIDER OF BP db ED Course: 06:32 Missed attempt(s): 22 gauge in right wrist. BY OTHER ED STAFF. Bleeding controlled, db band aid applied, catheter tip intact. 15:58 Patient arrived in ED. bd 15:58 Kristel Morales, RN is Primary Nurse. db 16:01 Fede Aguilar DO is Attending Physician. ms3 16:15 Triage completed. db 16:15 Arm band placed on Patient placed in an exam room. db 16:30 Missed attempt(s): 22 gauge in right wrist. bc6 16:38 Patient has correct armband on for positive identification. Bed in low position. Call db light in reach. Side rails up X 1. Client placed on continuous cardiac and pulse oximetry monitoring. NIBP monitoring applied. Warm blanket given. 16:52 Abdomen In Process Unspecified. EDMS 16:52 CT Head C Spine In Process Unspecified. EDMS 17:03 Chest Single View XRAY In Process Unspecified. EDMS 17:10 Inserted saline lock: 22 gauge in left antecubital area, using aseptic technique. Blood db collected. 17:22 EKG done, by ED staff, reviewed by Fede Aguilar DO. db 17:45 Lab(s) recollected, by me, sent to lab. Urine collected: clean catch specimen, clear. db 19:33 Jesus Franco MD is Hospitalizing Provider. ms3 20:19 No provider procedures requiring assistance completed. Patient admitted, IV remains in jb4 place. Administered Medications: 16:28 Drug: Acetaminophen PO 1000 mg Route: PO; db 17:35 Drug: NS 0.9% IV 1000 ml Route: IV; Rate: 1 bolus; Site: left antecubital; db Medication: 20:00 VIS not applicable for this client. jb4 Point of Care Testing: Blood Glucose: 16:33 Blood Glucose: 222 mg/dL; db Ranges: Outcome: 19:33 Decision to Hospitalize by Provider. ms3 20:19 Admitted to Med/surg accompanied by nurse. jb4 20:19 Condition: stable 20:19 Discharge instructions given to patient, Instructed on the need for admit, Demonstrated understanding of instructions. 20:22 Patient left the ED. jb4 Signatures: Dispatcher [employer] EDMS Simran Kim James, RN RN jb4 Fede Aguilar DO DO ms3 Kristel Morales, RN RN db Paty Ching bc6 Corrections: (The following items were deleted from the chart) 16:37 06:32 Missed attempt(s): 22 gauge in right wrist. Bleeding controlled, band aid db applied, catheter tip intact. db 19:39 19:00 BP 127 / 52; Pulse 75bpm; Resp 17bpm; Pulse Ox 97% RA; jb4 jb4
[2022-10-23 20:43] VITALS: O2SAT 97
[2022-10-23] MEDS: ONDANSETRON 4 MG/2 ML VIAL IV PRN (23:26)
[2022-10-23] MEDS: NA CHLORIDE 0.9% 1,000 ML IV SCH (23:29)
[2022-10-24 01:15] VITALS: BMI 36.3
[2022-10-24] MEDS: ACETAMINOPHEN 500 MG TAB PO PRN ×2 (01:26→20:37)
[2022-10-24 02:48] LABS: Absolute Lymphocytes (CBC) 1.2 K/uL (0.7-4.9); Hematocrit 33.6 % (36.0-45.0); MCV 79.8 fL (80-100); MPV 8.7 fL (7.6-11.3); Platelets 242 thou/uL (152-406); RBC Red Blood Cell Count 4.21 M/uL (3.86-4.86)
[2022-10-24 03:17] LABS: Albumin 2.8 g/dL (3.4-5.0); Bilirubin Total 0.2 mg/dL (0.2-1.0); Potassium 3.9 mEq/L (3.5-5.1); Protein, Total 6.2 g/dL (6.4-8.2)
[2022-10-24] MEDS: ONDANSETRON 4 MG/2 ML VIAL IV PRN ×2 (07:32→23:55)
[2022-10-24] MEDS ORDERED: ENOXAPARIN 40 MG/0.4 ML SQ SCH (09:00)
[2022-10-24] MEDS: NA CHLORIDE 0.9% 1,000 ML IV SCH ×2 (09:08→16:00)
[2022-10-24] MEDS: HYOSCYAMINE SULF 0.125 MG TAB PO PRN ×2 (09:08→17:17)
[2022-10-24] MEDS: COLESTIPOL 1 GM TAB PO SCH ×2 (09:37→20:37)
--- NOTE | 2022-10-24 13:02 | EKG ---
Test Date: 2022-10-23 Test Time: 17:22:59 Ironer Sock: MIRZA MEASUREMENT RESULTS: Intervals: Rate: 84 WV: 164 QRSD: 74 QT: 374 QTc: 441 Dorothy: P: 87 WV: 164 QRS: 33 T: 16 INTERPRETIVE STATEMENTS: Normal sinus rhythm Normal ECG Compared to ECG 08/13/2022 11:08:46 No significant changes Electronically Signed On 10-24-22 13:00:30 CDT by Eliazar Bergeron
--- NOTE | 2022-10-24 21:16 | P.HP ---
Patient History Date of Service: 10/24/22 Reason for admission: diarrhea History of Present Illness: Kiley is having intractable diarrhea for a few days and has hypotension from it. She has Dm and severe neuropathy from it. Allergies carbamazepine [From Tegretol] Allergy (Intermediate, Verified 05/17/19 14:46) Hives/Rash Iodinated Contrast Media [IV Dye, Iodine Containing Contrast ] Allergy (Intermediate, Verified 05/17/19 14:46) Hives Home Medications: Aspirin [Aspir-Low] 81 mg PO DAILY 04/30/17 Atorvastatin Calcium [Lipitor*] 20 mg PO BEDTIME tab 06/01/19 Omeprazole 20 mg PO BID #60 tablet. 04/06/20 Acetaminophen [Tylenol Extra Strength] 1,000 mg PO BEDTIME 12/17/21 Amlodipine [Norvasc*] 10 mg PO DAILY 12/17/21 Fluoxetine HCl [Prozac] 20 mg PO DAILY 12/17/21 Losartan Potassium 100 tab PO DAILY 12/17/21 Pregabalin [Lyrica] 300 mg PO BID cap 02/19/22 Apixaban [Eliquis] 5 mg PO BID 10/24/22 Docusate [Colace Cap] 200 mg PO DAILY 10/24/22 Empagliflozin/Metformin HCl [Synjardy Xr 25-1,000 mg Tablet] 1 each PO DAILY 10/24/22 Insulin Glargine/Lixisenatide [Soliqua 100 Unit-33 Mcg/ml Pen] 60 units SQ DAILY 10/24/22 Metoprolol Tartrate [Lopressor*] 25 mg PO BID 10/24/22 oxyBUTYnin chloride [Oxybutynin Chloride] 5 mg PO BID 10/24/22 - Past Medical/Surgical History Has patient received pneumonia vaccine in the past: Yes Diabetic: Yes -: CVA -: HTN -: TIA -: IDDM -: COPD -: BREAST AND CERVICAL CA -: ANEMIA -: DEPRESSION/ANXIETY -: HEADACHES -: Bladder Suspension sx 4 -: Left Ankle Surgery -: Stomach surgery (ureter sx) -: Breast biopsy -: appy -: hysterectomy Psychosocial/ Personal History: Patient lives at home alone. - Family History Father -: Hypertension, Stroke Mother -: Hypertension, Diabetes - Social History Smoking Status: Never smoker Alcohol use: No CD- Drugs: No Caffeine use: Yes Review of Systems 10-point ROS is otherwise unremarkable General: Weakness Physical Examination - Vital Signs Temperature: 97.5 F Blood Pressure: 133/62 Pulse: 85 Respirations: 16 Pulse Ox (%): 96 - Physical Exam General: Mild distress, Obese HEENT: Atraumatic, PERRLA, Mucous membr. moist/pink, EOMI, Sclerae nonicteric Neck: Supple, 2+ carotid pulse no bruit, No LAD, Without JVD or thyroid abnormality Respiratory: Clear to auscultation bilaterally, Normal air movement Cardiovascular: Regular rate/rhythm, Normal S1 S2 Gastrointestinal: Normal bowel sounds, No tenderness Musculoskeletal: No tenderness Integumentary: No rashes Neurological: Normal gait, Normal speech, Normal strength at 5/5 x4 extr, Normal tone, Normal affect Lymphatics: No axilla or inguinal lymphadenopathy - Studies Microbiology Data (last 24 hrs): 10/23/22 18:58 Nasopharnyx Influenza Type A Antigen Screen - Final 10/23/22 18:58 Nasopharnyx Influenza Type B Antigen Screen - Final Assessment and Plan - Problems (Diagnosis) (1) Viral gastroenteritis Current Visit: Yes Status: Acute Plan: COLESTID LEVSIN IV FLUIDS DAILY LAB. (2) Hypovolemic shock Current Visit: Yes Status: Acute Plan: ABOVE. (3) Diabetic peripheral neuropathy Current Visit: Yes Status: Acute Plan: RESUME LYRICA. (4) Atrial fibrillation Current Visit: No Status: Chronic Plan: CONTROLLED CONTINUE ELIQUIS. Qualifiers: - Advance Directives Does patient have a Living Will: Yes Does patient have a Durable POA for Healthcare: Yes
[2022-10-25 03:42] LABS: Absolute Lymphocytes (CBC) 2.1 K/uL (0.7-4.9); Hematocrit 35.5 % (36.0-45.0); Lymphocytes % 25.6 % (15.3-44.8); MCV 80.5 fL (80-100); MPV 8.7 fL (7.6-11.3); Platelets 213 thou/uL (152-406); RBC Red Blood Cell Count 4.41 M/uL (3.86-4.86)
[2022-10-25 04:03] LABS: Potassium 3.8 mEq/L (3.5-5.1)
[2022-10-25] MEDS: NA CHLORIDE 0.9% 1,000 ML IV SCH (05:54)
[2022-10-25] MEDS ORDERED: PANTOPRAZOLE 40MG TABLET PO SCH (06:30)
[2022-10-25] MEDS: ONDANSETRON 4 MG/2 ML VIAL IV PRN (08:45)
[2022-10-25] MEDS ORDERED: APIXABAN 5 MG TABLET PO SCH (09:00)
[2022-10-25] MEDS ORDERED: DOCUSATE NA 100 MG CAP PO SCH (09:00)
[2022-10-25] MEDS ORDERED: LIXISENATIDE SQ SCH (09:00)
[2022-10-25] MEDS ORDERED: METOPROLOL TAR 25 MG TAB PO SCH (09:00)
[2022-10-25] MEDS ORDERED: ASPIRIN EC 81 MG TAB PO SCH (09:00)
[2022-10-25] MEDS ORDERED: oxyBUTYnin chloride 5 MG TAB PO SCH (09:00)
[2022-10-25] MEDS ORDERED: FLUOXETINE 20 MG CAP PO SCH (09:00)
[2022-10-25] MEDS ORDERED: PREGABALIN 150 MG CAP PO SCH (09:00)
[2022-10-25] MEDS ORDERED: INSULIN GLARGINE SQ SCH (09:00)
[2022-10-25] MEDS: COLESTIPOL 1 GM TAB PO SCH (09:56)
[2022-10-25 12:50] VITALS: BP 133/58; TEMP 98
--- NOTE | 2022-10-25 14:46 | P.DS ---
Admission Date: 10/23/22 Discharge Date: 10/25/22 Disposition: ROUTINE DISCHARGE Discharge Condition: FAIR Reason for Admission: diarrhea - Problems (1) Viral gastroenteritis Current Visit: Yes Status: Acute (2) Hypovolemic shock Current Visit: Yes Status: Acute (3) Diabetic peripheral neuropathy Current Visit: Yes Status: Acute (4) Atrial fibrillation Current Visit: No Status: Chronic Qualifiers: Brief History of Present Illness: Kiley is having intractable diarrhea for a few days and has hypotension from it. She has Dm and severe neuropathy from it. Hospital Course: KAILA COMES FOR DIARREHA AND WEAKNESS. I ASKED NURSE TO COLLECT C DIFF SHE TOLD ME SHE STILL HAS DIARRHEA AND HAS BM IN DIAPER. NURSE TOLD ME THAT SHE HAS NO MORE DIARRHEA. I HAD HER AMBULATE AND SHE IS STABLE TO GO HOME. SHE NEEDS TO STOP HER BP PILLS FOR A FEW DAYS UNTIL BP REACHES HIGHER THAN NORMAL. SAME FOR INSULIN. Vital Signs/Physical Exam: Temp Pulse Resp BP Pulse Ox 98 F 91 H 18 133/58 L 97 10/25/22 12:00 10/25/22 12:00 10/25/22 12:00 10/25/22 12:00 10/25/22 12:00 Laboratory Data at Discharge: WBC 8.20 thou/uL (4.3-10.9) 10/25/22 02:58 Hgb 11.0 g/dL (12.0-15.0) L 10/25/22 02:58 Hct 35.5 % (36.0-45.0) L 10/25/22 02:58 Plt Count 213 thou/uL (152-406) 10/25/22 02:58 PT 13.9 SECONDS (9.5-12.5) H 10/23/22 17:45 INR 1.26 10/23/22 17:45 APTT 43.0 SECONDS (24.3-36.9) H 10/23/22 17:45 Sodium 139 mEq/L (136-145) 10/25/22 02:58 Potassium 3.8 mEq/L (3.5-5.1) 10/25/22 02:58 BUN 8 mg/dL (7-18) 10/25/22 02:58 Creatinine 0.59 mg/dL (0.55-1.02) 10/25/22 02:58 Glucose 73 mg/dL (74-106) L 10/25/22 02:58 Total Bilirubin 0.2 mg/dL (0.2-1.0) 10/24/22 02:22 AST 29 U/L (15-37) 10/24/22 02:22 ALT 37 U/L (13-56) 10/24/22 02:22 Alkaline Phosphatase 116 U/L (45-117) D 10/24/22 02:22 Home Medications: Aspirin [Aspir-Low] 81 mg PO DAILY 04/30/17 Atorvastatin Calcium [Lipitor*] 20 mg PO BEDTIME tab 06/01/19 Omeprazole 20 mg PO BID #60 tablet.dr 04/06/20 Acetaminophen [Tylenol Extra Strength] 1,000 mg PO BEDTIME 12/17/21 Fluoxetine HCl [Prozac] 20 mg PO DAILY 12/17/21 Pregabalin [Lyrica] 300 mg PO BID cap 02/19/22 Apixaban [Eliquis] 5 mg PO BID 10/24/22 Docusate [Colace Cap*] 200 mg PO DAILY 10/24/22 Empagliflozin/Metformin HCl [Synjardy Xr 25-1,000 mg Tablet] 1 each PO DAILY 10/24/22 Metoprolol Tartrate [Lopressor*] 25 mg PO BID 10/24/22 oxyBUTYnin chloride [Oxybutynin Chloride] 5 mg PO BID 10/24/22 Followup: NONE,NONE [Primary Care Provider] -
[2022-10-25] MEDS ORDERED: ATORVASTATIN 20 MG TAB PO SCH (21:00)
[2022-10-25] MEDS ORDERED: ACETAMINOPHEN 500 MG TAB PO SCH (21:00)
== END 2022-10-25 15:06 | disposition home or self-care (01) ==
LOC: ER 15:55 → 2ND 19:53
PROVIDERS: ADMIT Internal Medicine; ATTEND Internal Medicine
DX: A08.4 Viral intestinal infection, unspecified (principal); R57.1 Hypovolemic shock; E11.42 Type 2 diabetes mellitus with diabetic polyneuropathy; I48.11 Longstanding persistent atrial fibrillation; Z79.01 Long term (current) use of anticoagulants
CPT/HCPCS: 93005; 87040 ×2; 85025 ×3; 81001; 80048; 36415 ×2; 85610; 82947 ×8; 83605 ×2; 85730; 80053 ×2; 87635; 87804 ×2; 70450; 72125; 74176; 71045; 97161; 97530; 99285; J1650; J2405 ×3; J7030 ×5; G0378

== ENCOUNTER 2022-10-27 12:10 | Emergency (ER) | payer OTHER ==
--- OUTSIDE RECORDS SUMMARY | 2022-10-27 12:24 | XMS REPORT | Continuity of Care Document ---
:1945 Author Organization [facility] t Address [address] [place] [address] [address] [place] [address] Care Team Providers Name Role Phone SalvadorNoe donahueesh Attending Clinician Unavailable Shivani Anguiano Attending Clinician Unavailable [email or web address]_E Attending Clinician Unavailable Jose TAI, Christin Delacruz Attending Clinician [phone] Michael Alvarenga MD Attending Clinician Unavailable Osbaldo Nichole MD Attending Clinician [phone] Shashank Jorgensen MD Attending Clinician SHASHANK JORGENSEN Attending Clinician Unavailable CHRISTIN GARCIA Attending Clinician Unavailable Shon Ashford Attending Clinician Ok Pace MD Attending Clinician Virtual, Surgeon Attending Clinician Unavailable Michael_Filiberto Attending Clinician Unavailable [email or web address]_E Admitting Clinician Unavailable MICHAEL ALVARENGA Admitting Clinician Unavailable Michael Admitting Clinician Unavailable Payers Payer Name Policy Type Policy Number Effective Date Expiration Date S ource NASHUA [id number] HEALTHCARE (MEDICARE REPLACEMENT/ADVA NTAGE - PPO) [place] [id number] Common HEALTHCARE [facility] [id number] HEALTHCARE Problems Condition Condition Condition Status Onset Resolution Last Treating Co mments Source Name Details Category Date Date Treatment Clinician Date Stroke Stroke Disease Recurre [facility] ([facility]rebrum) (cerebrum) nce 7-04 Ria kes 00:00: Medical 00 Ruth Atrial Atrial Disease Recurre [facility] fibrillati fibrillati nce 7-04 [facility] k[facility] on on 00:00: Medical 00 Ruth Breast Breast Disease Recurre [facility] cancer cancer [facility] 04 [facility] 00:[facility]: Medical 00 Ruth Diabetes Diabetes Disease Recurre [facility] mellitus mellitus nce 08-13 [facility] 00:00: Medical Ruth COPD COPD Disease Recurre [facility] (chronic (chronic [facility] 08[facility] obstructiv obstructiv 00:00: Il dical e e 00 Center pulmonary pulmonary disease) disease) Walker as Walker as Disease Recurre [facility] ambulation ambulation nce 08-13 Ria kes aid aid 00:00: Medical 00 Ruth Cervical Cervical Disease Recurre [facility] cancer cancer nce 08-13 [facility] 00:00: Medical 00 Ruth Received Received Disease Active [facility] tissue tissue 08[facility]13 [facility] plasminoge plasminoge 00:00: Il dical n n 00 Center activator activator (t-PA) (t-PA) less than less than 24 hours 24 hours prior to prior to arrival arrival Chronic Chronic Disease Active [facility] back pain back pain 08-13 [facility] s 00:00: Medical 00 Ruth HTN HTN Disease Active [facility] (hypertens (hypertens -04 Ria kes ion) ion) 00:00: Medical 00 Ruth HLD HLD Disease Active [facility] (hyperlipi (hyperlipi -04 Ria kes demia) demia) 00:00: Medical 00 Ruth GERD GERD Disease Active [facility] (gastroeso (gastroeso -04 Ria kes phageal phageal 00:00: Medical reflux reflux 00 Ruth disease) disease) 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 [...] 00 e Senile Senile Problem Active 2017-02 [facility] osteoporos Osteoporos 2-13 Fa mary is is [...] 00 e Chronic Chronic Problem Active 2016-02 [facility]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 00:00: Pr actic disorder, Disorder, 00 e single Single episode Episode Chronic Chronic Problem Active 2016-02 [facility] pain Pain 2-14 Family 00:00: Practic 00 e Essential Essential Problem Active 2016-02 Rika mcintyre hypertensi Hypertensi 2-14 Fa mary on on 00:00: Practic 00 e Chronic Chronic Problem Active 2016-02 [facility] obstructiv Obstructiv 2-14 [facility] e lung e Lung 00:00: Practic disease Disease 00 e [id number] Boil Problem [facility] [id number] Dysuria Problem [facility] [id number] Menopausal Problem Com mon vaginal Spirit dryness - [facility] Allergies, Adverse Reactions, Alerts Allergy Allergy Status Severity Reaction(s) Onset Inactive Treating Comm ents Source Name Type Date Date Clinician CARBAMAZ Allergy Active High Hives 2023-[address] [facility] EPINE 08-13 [facility] 00:00: Medical 00 Center IODINATE Allergy Active High Hives [facility] D 08-13 [facility] CONTRAST 00:00: Medical MEDIA 00 Ruth Carbamaz Drug Active Hives, Rash [facility] epine Allergy 08-13 [facility] 00:00: Medical 00 Ruth Iodinate Drug Active Hives, [facility] Allergy Nausea Only 08-13 Luke [facility] Contrast 00:00: Medical Media 00 Ruth 463 Drug Active nausea,diff Commo n allergy breathing Spirit - [facility] Iodine Allergy Active [facility] Practic e e Tegretol Allergy Active [facility] Practic e e Social History Social Habit Start Date Stop Date Quantity Comments Source History of Tobacco [facility] - Use [facility] History [facility] Tobacco use and 2022-08-13 2022-08-[address] [facility] exposure 00:00:00 00:00:00 non-user Medical Center Alcohol intake 2022-08-13 2022-08-[address] [facility] 00:00:00 00:00:00 non-drinker Medical Cente r (finding) History [facility] 2022-08-13 2022-08-[address] [facility] Transport Med 00:00:00 00:00:[address] [facility] 2022-08-13 2022-08-[address] [facility] Housing Unable to 00:00:00 00:00:00 Medical Center Pay History [facility] 2022-08-13 2022-08-[address] [facility] Housing Places 00:00:00 00:00:00 Medical Ce nter Lived History [facility] 2022-08-13 2022-08-[address] [facility] Housing Homeless 00:00:00 00:00:00 Medical Center Last Year Sex Assigned At [address] kes 00:00:00 00:00:00 Medical Center Smoking Status Start Date Stop Date Source Never smoked tobacco [facility] Medications Ordered Filled Start Stop Current Ordering Indication Dosage Frequency Signature Comments Components Source Medication Medication Date Date Medication? Clinician (SIG) Name Name aspirin 81 2022- No 81mg QD Take [address] [facility] MG chewable 08-16 tablet (81 L ukes tablet 17:59: 00:00 mg total) Medic al 01 :00 by mouth Center daily. aspirin 81 2022- No 81mg QD Take [address] [facility] [facility] MG chewable 08-16- tablet (81 L ukes tablet 17:59: 00:00 mg total) Medic al 01 :00 by mouth Center daily. apixaban 2022- Yes 5mg Q.5D Take [address] [facility] (ELIQUIS) 5 08-15 10-04 tablet (5 Ria kes mg Tab 00:00: 23:59 mg total) Medic al tablet 00 :00 by mouth 2 Center (two) times daily for 90 days. apixaban 0 2022- Yes 5mg Q.5D Take [address] (ELIQUIS) 5 08-15-04 tablet (5 Ria kes mg Tab 00:00: 23:59 mg total) Medic al tablet 00 :00 by mouth 2 Center (two) times daily for 90 days. Bupivicaine Bupivicaine 2021-0 No 5mg Common [place] 8-22 Spirit 00:00: - [facility]I 00 [facility] Kenalog Kenalog 2021-0 No 40mg Common (Triamcinol (Triamcinol 8-22 S pirit one) one) 00:00: - [facility] Bupivicaine Bupivicaine 2-0 No 5mg Common [place] 8-22 Spirit 00:00: - [facility] Kenalog Kenalog 2021-0 No 40mg Common (Triamcinol (Triamcinol 8-22 S pirit one) one) 00:00: - CHI 00 [facility] Bupivicaine Bupivicaine 2021-0 No 5mg Common [place] 8-22 Spirit 00:00: - CHI [facility] Kenalog Kenalog 2021-0 No 40mg Common (Triamcinol (Triamcinol 8-22 S pirit one) one) 00:00: - CHI 00 [facility] Lyrica Lyrica No Lyrica metFORMIN metFORMIN No [...] MG 100 MG Docusate Docusate No Docusate Sodium-Kaibeto Sodium-Kaibeto Sodium-Herman nthranol nthranol anthranol Aspirin 81 Aspirin [...] SoloStar SoloStar SoloStar Docusate Docusate No Docusate Sodium-Kaibeto Sodium-Kaibeto Sodium-Herman nthranol nthranol anthranol Lyrica Lyrica No [...] MG 100 MG Docusate Docusate No Docusate Sodium-Kaibeto Sodium-Kaibeto Sodium-Herman nthranol nthranol anthranol Aspirin 81 Aspirin [...] morning. amlodipine amlodipine No 1 Q1D amlodipine Village 5 mg tablet 5 mg tablet 5 mg F amily Take 1 Take 1 tablet Practic tablet tablet Take 1 e every day every day tablet by oral by oral every day route in route in by oral the the route in morning. morning. the morning. atorvastati atorvastati No atorvastat [facility] n 20 mg n 20 mg in [...] No 1needle Q1D Comfort EZ [place] Pen Mulberry Pen Mulberry (s) Pen F amily 32 gauge x 32 gauge x [place] 32 Practic 06/25" Take 06/25" Take gauge x e 1 needle 1 needle 06/25" Take every day every day 1 needle by miscell. by miscell. every day route as route as by directed. directed. miscell. route as directed. diphenhydra diphenhydra No 1capsul Q8H diphenhydr [facility] mine 25 mg mine 25 mg e(s) amine 25 Family capsule capsule mg capsule Pra ctic Take 1 Take 1 Take 1 e capsule capsule capsule every 8 every 8 every 8 hours by hours by hours by oral route oral route oral route as as as directed. directed. directed. fluoxetine fluoxetine No 1capsul Q1D fluoxetine [facility] 40 mg 40 mg e(s) 40 mg Family capsule capsule capsule Practi c Take 1 Take 1 Take 1 e capsule capsule capsule every day every day every day by oral by oral by oral route at route at route at bedtime. bedtime. bedtime. ipratropium ipratropium No 2.5mL Q6H ipratropiu [facility] bromide bromide m bromide Fami ly 0.02 [...] directed. metformin metformin No 2 BID metformin [facility] ER 500 mg ER 500 mg ER [...] days. omeprazole omeprazole No 1 Q1D omeprazole [facility] 20 mg 20 mg 20 mg Family [...] Name influenza, high-dose, influenza, high-dose, 2020-12-19 Completed [facility] Family quadrivalent quadrivalent 12:00:38 Practice Non-US Vaccine Non-US Vaccine 2020-09-06 Completed [facility] e Family COVID-19 PS COVID-19 PS 00:00:00 Practice (EpiVacCorona) (EpiVacCorona) COVID-19, mRNA, COVID-19, mRNA, 2020-08-10 Completed [facility] LNP-S, PF, 100 LNP-S, PF, 100 00:00:00 Practi ce mcg/0.5 mL dose mcg/0.5 mL dose (Moderna) (Moderna) pneumococcal pneumococcal 2018-02-10 Completed [facility] Fa mayr polysaccharide PPV23 polysaccharide PPV23 00:00:00 Practice influenza, influenza, 2018-02-10 Completed [facility] Family injectable, injectable, 00:00:00 Practice quadrivalent quadrivalent Vital [...] 160 cm WEIGHT 2022-08-13 13:00:00 90.5 kg height 2021-11-12 13:15:00 62 [in_i] [facility] weight 2021-11-12 13:15:00 205.4 [lb_av] [facility] temperature 2021-11-12 13:15:00 97.3 [degF] [facility] bmi 2021-11-12 13:15:00 37.56 kg/m2 [facility] blood pressure 2021-11-12 13:15:00 146 mm[Hg] [facility] - systolic [facility] blood pressure 2021-11-12 13:15:00 86 mm[Hg] Common [facility] - diastolic [facility] height 2021-10-01 13:30:00 62 [in_i] [facility] weight 2021-10-01 13:30:00 198.5 [lb_av] [facility] temperature 2021-10-01 13:30:00 97.3 [degF] Common S pirit - [facility] bmi 2021-10-01 13:30:00 36.3 kg/m2 Common S pirit - [facility] blood pressure 2021-10-01 13:30:00 128 mm[Hg] [facility] - systolic [facility] blood pressure 2021-10-01 13:30:00 74 mm[Hg] [facility] - diastolic [facility] BP Diastolic 2021-03-21 00:00:00 76 mm[Hg] [...] (Body Mass Index) 2020-09-11 00:00:00 35.8 kg/m2 [facility] Family Practice BP Systolic 2020-09-11 00:00:00 141 mm[Hg] [facility] Body Weight 2020-09-11 00:00:00 196 [lb_av] [facility] BP Diastolic 2020-06-19 00:00:00 80 mm[Hg] [facility] Height 2020-06-19 00:00:00 62 [in_i] [facility] BMI (Body Mass Index) 2020-06-19 00:00:00 35.8 kg/m2 [facility] BP Systolic 2020-06-19 00:00:00 134 mm[Hg] [facility] Body Weight 2020-06-19 00:00:00 196 [lb_av] [facility] BP Diastolic 2019-11-09 00:00:00 64 mm[Hg] [facility] Height 2019-11-09 00:00:00 62 [in_i] [facility] BMI (Body Mass Index) 2019-11-09 00:00:00 35.6 kg/m2 [facility] BP Systolic 2019-11-09 00:00:00 154 mm[Hg] [facility] Body Weight 2019-11-09 00:00:00 194.6 [lb_av] [facility] Practice Systolic blood 2022-08-15 16:00:00 127 mm[Hg] [facility] Diastolic blood 2022-08-15 16:00:00 84 mm[Hg] [facility] Heart rate 2022-08-15 16:00:00 61 /min [facility] Body temperature 2022-08-15 16:00:00 36.72 Vikki [facility] Respiratory rate 2022-08-15 16:00:00 15 /min [facility] Oxygen saturation in 2022-08-15 16:00:00 95 /min [facility] Arterial blood by Medical Ce nter Pulse oximetry Body height 2022-08-13 20:51:00 160 cm [facility] Body weight 2022-08-13 20:51:00 90.5 kg [facility] BMI 2022-08-13 20:51:00 35.34 kg/m2 [facility] Procedures Procedure Date / Time Performing Clinician Source Performed ECHO W CONTRAST & DOPPLER 2022-08-15 14:01:00 [facility] POCT-GLUCOSE METER 2022-08-15 10:46:00 Shashank Jorgensen [facility] CBC W/PLT COUNT & AUTO 2022-08-15 04:17:00 Alex Avitia [facility] BASIC METABOLIC PANEL 2022-08-15 04:17:00 Alex Avitia [facility] CBC W/PLT COUNT & AUTO 2022-08-15 04:17:00 Alex Avitia [facility] (CELLAVISION MANUAL DIFF) 2022-08-15 04:17:00 Alex Avitia [facility] POCT-GLUCOSE METER 2022-08-14 16:08:00 Osbaldo Nichole [facility] POCT-GLUCOSE METER 2022-08-14 10:49:00 Michael Alvarenga [facility] MR BRAIN WITH & WITHOUT IV 2022-08-14 10:13:14 Alex Avitia [facility] POCT-GLUCOSE METER 2022-08-14 06:01:00 Christin Garcia [facility] LIPID PANEL 2022-08-14 02:56:00 Asaf Forde [facility] CBC W/PLT COUNT & AUTO 2022-08-14 02:56:00 Alex Avitia [facility] BASIC METABOLIC PANEL 2022-08-14 02:56:00 Alex Avitia [facility] CBC W/PLT COUNT & AUTO 2022-08-14 02:56:00 Alex Avitia [facility] POCT-GLUCOSE METER 2022-08-13 20:11:00 Christin Garcia [facility] URINALYSIS WITH 2022-08-13 16:13:00 Alex Avitia [facility] MICROSCOPIC IF INDICATED [facility] URINALYSIS MICROSCOPIC 2022-08-13 16:13:00 [facility] POCT-GLUCOSE METER 2022-08-13 16:11:00 Jose [facility] PROTHROMBIN TIME/INR 2022-08-13 16:02:00 Dejon [facility] APTT 2022-08-13 16:02:00 Dejon [facility] ECG 12-LEAD 2022-08-13 15:12:38 Dejon [facility] ECG 12-LEAD 2022-08-13 15:12:38 Unknown, H[facility] ECG 12-LEAD 2022-08-13 15:12:38 Unknown, Hl7 [facility] POCT-GLUCOSE METER 2022-08-13 15:09:00 Jose [facility] METHYLMALONIC ACID 2022-08-13 15:04:00 [facility]-1 AG W/HIV-1&2 2022-08-13 15:04:00 Alex Avitia [facility] RPR 2022-08-13 15:04:00 [facility] W[facility] & AUTO 2022-08-13 15:04:00 Alex Avitia [facility] CBC W/PLT COUNT & AUTO 2022-08-13 15:04:00 [facility]PRE[facility]IVE [facility]ABOLIC 2022-08-13 15:04:00 [facility] HIGH SENSITIVITY TROPONIN 2022-08-13 15:04:00 Alex Avitia [facility] HEMOGLOBIN A1C 2022-08-13 15:04:00 [facility] TSH/FREE T4 IF INDICATED 2022-08-13 15:04:00 [facility] C-REACTIVE PROTEIN 2022-08-13 15:04:00 Adore [facility] VITAMIN B12 2022-08-13 15:04:00 [facility]RAIN 2022-08-13 12:50:00 [facility] CAROTID 2022-08-13 12:50:[address] [facility] CEREBRAL 2022-08-13 12:50:[address] [facility] PERFUSION ANALYSIS Medical Cente r EKG-SCANNED 2022-08-13 00:00:00 Dedrick Hartley [facility] Scanning [facility] Removal of Gallbladder 2019-07-12 00:00:00 Carrasco [facility] Practice Laparoscopic 2019-04-30 00:00:00 [facility] Cholecystectomy Practice Colonoscopy [facility] Procedure on Bladder [facility] vidhi Practice Operation on Cervix [facility] Practice Breast Surgery [facility] of Care Planned Activity Planned Date Details Comments Source Future Scheduled 2023-08-[address] [facility] Test 00:00:00 Counseling [facility] Medical Cente r Screening (12+) [code = Tobacco Cessation Counseling and Screening (12+)] Future Scheduled 2023-08-[address] [facility] Test 00:00:00 Counseling [facility] Medical Cente r Screening (12+) [code = Tobacco Cessation Counseling and Screening (12+)] Future Scheduled 2022-10-[address] [facility] Test 00:00:00 (#1) [code = [facility] Influenza Vaccine (#1)] Future Scheduled 2022-10-[address] [facility] Test 00:00:00 (#1) [code = [facility] Influenza Vaccine (#1)] Future Scheduled 2022-08-[address] [facility] Test 00:00:00 measurement Medical Center (procedure) [code = 13060792] Future Scheduled 2022-08-[address] [facility] Test 00:00:00 measurement Medical Center (procedure) [code = 35357132] Future Scheduled 2022-05-[address] [facility] Test 00:00:00 (WELCOME TO MEDICARE) Medica l Center [code = Medicare IPPE (WELCOME TO MEDICARE)] Future Scheduled 2022-05-[address] [facility] Test 00:00:00 (WELCOME TO MEDICARE) Medica l Center [code = Medicare IPPE (WELCOME TO MEDICARE)] Diagnostic Test 2021-03-21 glucose, fingerstick, Rika francisco javier Family Pending 00:00:00 blood [code = Practice glucose, fingerstick, blood] Diagnostic Test 2021-03-21 hemoglobin A1C, Village F amily Pending 00:00:00 fingerstick [code = Practice hemoglobin A1C, fingerstick] Future Scheduled 2020-10-05 COVID-19 VACCINE ([facility] 00[facility]00 Booster for Moderna [facility] series) [code = COVID-19 VACCINE (2 - Booster for Moderna series)] Future Scheduled 2020-10-05 COVID-19 VACCINE (2 [facility] Test 00:00:00 Booster for [facility] series) [code = COVID-19 VACCINE (2 - Booster for Moderna series)] Future Scheduled 1995-07-18 SHINGLES VACCINES ([address] [facility] Test 00:00:00 of 2) [code = Medical Center SHINGLES VACCINES (1 of 2)] Future Scheduled 1995-07-18 SHINGLES VACCINES ([address] [facility] Test 00:00:00 of 2) [code = Medical Center SHINGLES VACCINES (1 of 2)] Future Scheduled 1964 DTAP/TDAP/TD VACCINES [facility] 00:00:00 (1 - Tdap) [code = Medical C enter DTAP/TDAP/TD VACCINES (1 - Tdap)] Future Scheduled 1964 DTAP/TDAP/TD VACCINES [facility] 00:00:00 (1 - Tdap) [code = Medical C enter DTAP/TDAP/TD VACCINES (1 - Tdap)] Future Scheduled 1963-07-18 HEPATITIS C SCREENING [facility] 00:00:00 [code = HEPATITIS C Medical Center SCREENING] Future Scheduled 1963-07-18 HEPATITIS C [facility]CREENING [facility] 00:00:00 [code = HEPATITIS C Medical Center SCREENING] Future Scheduled 1955-07-[address] DI[address] E[address] EXAM [facility] Test 00:00:00 [code = DIABETIC EYE Medical Center EXAM] Future Scheduled 1955-07-[address] [facility] Test 00:00:00 examination Medical Center (regime/therapy) [code = 904245146] Future Scheduled 1955-07-18 Urine screening for [facility] Test 00:00:00 protein (procedure) Medical Center [code = 766190351] Future Scheduled 1955-07-[address] DIABETIC EYE EXAM [facility] Test 00:00:00 [code = DIABETIC EYE Medical Center EXAM] Future Scheduled 1955-07-[address] [facility] Test 00:00:00 examination Medical Center (regime/therapy) [code = 650955385] Future Scheduled 1955-07-18 Urine screening for [facility] Test 00:00:00 protein (procedure) Medical Center [code = 022633218] Future Scheduled 1945 DXA SCAN [code = DXA [facility] Test 00:00:00 SCAN] Medical Center Future Scheduled 1945 DXA SCAN [code = DXA [facility] Test 00:00:00 SCAN] Medical Center Encounters Start End Encounter Admission Attending Care Care Encounter Source Date/Time Date/Time Type Type Clinicians Facility Department ID 2022-03-25 Outpatient Salvador, STLMLC STLC [id number] Common 16:58:[id number] [facility] 2022-03-11 Outpatient Salvador, STLMLC STLC [id number] Common 10:48:[id number] [facility] 2021-10-01 Outpatient Salvador, STLMLC STLMLC [id number] Common 13:17:[id number] [facility] 2021-09-18 Outpatient Annmarie, STLMLC STLC [id number] Common 14:32:[address] [facility] 2022-10-22 2022-10-22 Outpatient GC_GCBZW_Mc PRIV PRIV [id number] [facility] 00:00:00 00:00:00 Intire_E [id number] Medic al 2022-10-21 2022-10-21 Outpatient GC_GCBZW_Mc PRIV PRIV [id number] [facility] 00:00:00 00:00:00 Intire_E [id number] Medic al 2022-10-09 2022-10-09 Outpatient GC_GCBZW_Mc PRIV PRIV [id number] [facility] 00:00:00 00:00:00 Intire_E [id number] Medic al 2022-08-30 2022-08-30 Outpatient GC_GCBZW_Mc PRIV PRIV [id number] [facility] 00:00:00 00:00:00 Intire_E [id number] Medic fl 2022-08-13 2022-08-15 [facility] Jose Christin [facility] [id number] [facility] 12:05:00 17:59:00 Encounter [facility] 2022-08-13 2022-08-15 Inpatient [facility] Surgery [id number] SLE 12:05:00 17:59:00 [facility] 2022-08-13 2022[facility]08-[facility] [id number] [facility] 12:05:00 17:59:00 Encounter Michael [facility]renga [facility] 2022-08-15 2022-08-15 [facility] [id number] [facility] 12:09:52 00:00:00 [facility] 2022-08-14 2022-08-14 [facility] [id number] SLE 09:21:35 00:00:00 [facility] 2022-08-13 2022-08-13 [facility] [id number] 12:24:15 23:59:00 Encounter [facility] 2022-08-13 2022-08-13 Outpatient [facility] SLE [id number] [facility] 12:24:15 23:59:00 2022-08-13 2022-08-13 [facility], [facility] [id number] 12:24:15 23:59:00 Encounter [facility] 2022-08-13 2022-08-13 [facility] [id number] 12:24:13 23:59:00 Encounter [facility] 2022-08-13 2022-08-13 Outpatient EL SLEH [facility] [id number] [facility] 12:24:13 23:59:00 2022-08-13 2022-08-13 [facility] [id number] 12:24:13 23:59:00 Encounter [facility] 2022-08-13 2022-08-13 [facility] [id number] 12:24:08 23:59:00 Encounter [facility] 2022-08-13 2022-08-13 Outpatient EL SLEH SLEH [id number] [facility] 12:24:08 23:59:00 2022-08-13 2022-08-13 [facility] [id number] 12:24:08 23:59:00 Encounter [facility] 2022-08-13 2022-08-13 Anesthesia Ok Pace [facility] [id number] 20:08:00 20:08:00 Event [facility] 2022-08-13 2022-08-13 Anesthesia Ok Pace [facility] [id number] 20:08:00 20:08:00 Event [facility] 2022-08-13 2022-08-13 Surgery [facility], [facility] [id number] 12:08:00 12:31:00 [facility] 2022-08-13 2022-08-13 Surgery [place], [facility] [id number] 12:08:00 12:31:00 Surgeon [facility] 2022-08-13 2022-08-13 Orders [facility] [id number] 00:00:00 00:00:00 [facility] 2022-08-13 2022-08-13 [facility] [id number] [facility] 00[facility]00 [facility] 2022-08-13 2022-08-13 Orders [facility] [id number] 00:00:00 00:00:00 [facility] 2022-08-13 2022-08-13 [facility] [id number] [facility] 00[facility]00 [facility] 2021-11-12 2021-11-12 OFFICE [facility] [id number] Co mmon 00:00:00 00:00:00 VISIT Spirit ESTAB PT - CHI LEVEL 4 [facility] 2021-10-01 2021-10-01 OFFICE [facility] [id number] Co mmon 00:00:00 00:00:00 VISIT NEW [facility] it PT LEVEL 4 - CHI [facility] 2021-03-23 2021-03-23 Outpatient Daniel_T VFP VFP [id number] [address] [place] [address] 10:25:00 10:25:00 [id number] Family Practic e 2021-03-21 2021-03-21 Yuri Liaoel_T VFP [place] - [id number] Village 00:00:00 00:00:00 [facility] [place] [id number] Ramsey Rodriguez - Marcus vera MD: [id number] VM_HOU_Shashaina e [facility] [place] [facility], [address], [place] [address] , Ph. 2021-03-14 2021-03-14 Outpatient Daniel_T VFP VFP [id number] [address] [place] [address] 03:48:00 03:48:00 [id number] Family Practic e 2020-12-22 2020-12-22 Outpatient Daniel_T VFP VFP [id number] [address] [place] [address] 01:15:00 01:15:00 [id number] Family Practic e 2020-12-21 2020-12-21 Outpatient Daniel_T VFP VFP [id number] [facility] 10:26:00 10:26:00 [id number] Family Practic e 2020-12-19 2020-12-19 Yuri Daniel_T VFP [place] - [id number] [facility] 00:00:00 00:00:00 [facility] [place] [id number] Ramsey Rodriguez MD: 57649 Angie curry Shadow [facility] [place] [facility], [address], [place] [address] , Ph. 2020-12-12 2020-12-12 Outpatient Daniel_T VFP VFP [id number] [facility] 11:08:00 11:08:00 [id number] Family Practic e 2020-09-26 2020-09-26 Outpatient Daniel_T VFP VFP [id number] [facility] 05:04:00 05:04:00 [id number] Family Practic e 2020-09-22 2020-09-22 Yuri Daniel_T VFP [place] - [id number] [facility] 00:00:00 00:00:00 [facility] [place] 790846 MichaelRamsey MD: 78820 Angie curry Shadow [facility] [place] [facility], [address] [address] , Ph. 2020-09-14 2020-09-14 Outpatient Daniel_T VFP VFP [id number] [facility] 03:01:00 03:01:00 [id number] Family Practic e 2020-09-11 2020-09-11 Yuri Daniel_T VFP [place] - [id number] [facility] 00:00:00 00:00:00 [facility] [place] [id number] Ramsey Rodriguez MD: 57843 Angie curry Shadow [facility] [place] [facility] [address], [place] [address] , Ph. 2020-07-28 2020-07-28 Outpatient Daniel_T VFP VFP [id number] [facility] 01:29:00 01:29:00 [id number] Family Practic e 2020-06-21 2020-06-21 Outpatient Daniel_T VFP VFP [id number] [facility] 06:47:00 06:47:00 [id number] Family Practic e 2020-06-19 2020-06-19 Yuri Daniel_T VFP [place] - [id number] [facility] 00:00:00 00:00:00 [facility] [place] 580346 Ramsey Rodriguez MD: [id number] DUANE_Susu e Shadow [facility], [facility] [address], [place] [address] , Ph. 2020-03-20 2020-03-20 Outpatient Daniel_T VFP VFP [id number] 10-30 [facility] 09:49:00 09:49:00 Family Practic e 2019-11-12 2019-11-12 Outpatient Daniel_T VFP VFP [id number] 10-30 [facility] 06:54:00 06:54:00 Family Practic e 2019-11-09 2019-11-09 Yuri Daniel_T VFP [place] - [id number] [facility] 00:00:00 00:00:00 [facility] [place] [id number] Ramsey Rodriguez MD: [id number] Иван curry Shadow [facility], [facility] [address], [place] [address] , Ph. 2019-10-27 2019-10-27 Outpatient Daniel_T VFP VFP [id number] 10-30 [facility] 10:48:00 10:48:00 [id number] Family Practic e Results Test Description Test Time Test Comments Results Result Comments Source POC-Glucose meter 2022-08-15 10:57:35 Test Item Value Reference Range Interpretation Comme nts POC-Glucose Meter (test code = 184 mg/dL 70-110 H : TESTED AT [facility] [address] [facility] 1538) [facility], [facility] 30: S Iron Worker/Techni janie ID = [id number] for Hemanes, Diana'Sh ae Lab Interpretation (test code = Abnormal 40249-6) [facility] [id number] 10:57:35 Test Item Value Reference Range Interpretation Comments POC-Glucose Meter (test 184 mg/dL 70-110 H : TE STED AT [facility] code = 1538) [address] [facility] [place], 770 30: S Iron Worker/Techni janie ID = [id number] for Guadalupe Sylvester ae Lab Interpretation (test Abnormal code = 60388-6) [facility] [id number] 10:57:35 Test Item Value Reference Range Interpretation Comments POC-GLUCOSE METER 184 mg/dL 70-110 H : TESTED A T [facility] 6720 (BEAKER) (test code = WILLIAM Verma [facility], 1538) 200[address]: S Iron Worker/Techni janie ID = [id number] for Seema Gutierrez (CELLAVISION MANUAL DIFF)2022-08-15 08:16:06 [...] CONCENTRATION Adequate (CELLAVISION)(BEAKER) (test code = 3438) S Iron Worker ID - namnguyVitor comments: Slide comments:CBC W/PLT COUNT & AUTO [id number] 08:16:05 Test Item Value Reference Range Interpretation [...] (BEAKER) (test code = 413) BASIC METABOLIC [id number] 04:52:44 Test Item Value Reference Range Interpretation [...] 30-44 G4 Severl y decreased 15-29 G5 Kidne y failure <15Reported eGF R is based on the CKD-EPI 2020 equation that d oes not use a race coefficientEsti mated GFR is not as accur ate as Creatinine Mariah cheyenne in predicting glom erular filtration rate . Estimated GFR is not appl icable for dialysis patien ts S Iron Worker ID - DBPOCT-GLUCOSE [id number] 16:20:22 Test Item Value Reference Range Interpretation Comments POC-GLUCOSE METER 156 mg/dL 70-110 H : TESTED A T [facility] 6720 (KEVAN) (test code = WILLIAM Verma [facility], 1538) 79410: S Iron Worker/Techni janie ID = [id number] for Cara Hernandez MR BRAIN WITH & WITHOUT IV [id number] 15:05:24 [facility] : 1945 Sex: FMR [...] Signed By: Mariya Barrientos08/14/2022 15:07 CDTWorkstation Name: [id number] 11:27:50 Test Item Value Reference Range Interpretation Comments RPR SCREEN ([employer]) (test code = Nonreactive Nonreactive 420) POCT-GLUCOSE [id number] 11:00:52 Test Item Value Reference Range Interpretation Comments POC-GLUCOSE METER 140 mg/dL 70-110 H : TESTED A T [facility] 6720 ([employer]) (test code = [place], 1538) [address]: S Iron Worker/Techni janie ID = [id number] for Cara Hernandez HEMOGLOBIN [id number] 09:00:17 Test Item Value Reference Range Interpretation Comments HEMOGLOBIN A1C 7.8 % See_Comment H [Automated m essage] ELECTROPHORESIS ([employer]) The system which (test code = 3811) generated this result transmitted ref erence range: <=5.6%. The reference range was not used to int erpret this result as normal/abnormal . "The A1c is measured using a NGSP-certified method. HbA1c value equal to or greater than 6.5% as thediagnosis cutoff for diabetes. An HbA1c value of 5.7- 6.4% indicates increased risk for diabetes (prediabetes)."S Iron Worker ID - ADMPOCT- GLUCOSE [id number] 06:12:45 Test Item Value Reference Range Interpretation Comments POC-GLUCOSE METER 103 mg/dL 70-110 : TESTED A T [facility] 6720 (BEAKER) (test code = [place], 1538) [address]: S Iron Worker/Techni janie ID = [id number] for Pamella Rondon CBC W/PLT COUNT & AUTO [id number] 04:05:45 Test Item Value Reference Range Interpretation [...] per (BEAKER) (test code = nurse 756) [id number] ant PLT results com pared to previous, [...] PERCENT (BEAKER) (test code = 2801) LIPID [id number] 03:40:23 Test Item Value Reference Range Interpretation [...] Borderline 130-159 High 160-189 Very High >=190 S Iron Worker ID - ADMINBASIC METABOLIC [id number] 03:40:22 Test Item Value Reference Range Interpretation [...] 30-44 G4 Severl y decreased 15-29 G5 Kidne y failure <15Reported eGF R is based on the CKD-EPI 2020 equation that d oes not use a race coefficientEsti mated GFR is not as accur ate as Creatinine Mariah cheyenne in predicting glom erular filtration rate . Estimated GFR is not appl icable for dialysis patien ts S Iron Worker ID - ADMINPOCT-GLUCOSE [id number] 20:23:11 Test Item Value Reference Range Interpretation Comments POC-GLUCOSE METER 213 mg/dL 70-110 H : [facility] 6720 (BEAKER) (test code JANNIE [facility], = 1538) 911[address]: S Iron Worker/Techni janie ID = [id number] for BAL ATSANDI Urinalysis Microscopic [id number] 16:43:16 Test Item Value Reference Range Interpretation Comments RBC, UA (test 3 See_Comment [Automated me ssage] code = 65899-3) The system w [facility] generated this result transmitted ref erence range: /HPF. Th e reference range was not used to int erpret this result as normal/abnormal . WBC, UA (test See_Comment [Automated me ssage] code = 5821-4) The system [facility] generated this result transmitted ref erence range: /HPF. Th e reference range was not used to int erpret this result as normal/abnormal . Bacteria, UA Few (test code = 39552-4) Mucus (test Rare code = 8247-9) Squam Epithel, 13 See_Comment [Automated m essage] UA (test code = The system w [facility] 66071-5) generated this result transmitted ref erence range: /HPF. Th e reference range was not used to int erpret this result as normal/abnormal . KRISH (test code S Iron Worker ID - tech = KRISH) [facility] Microscopic [id number] 16:43:16 Test Item Value Reference Range Interpretation Comments RBC, UA (test 3 See_Comment [Automated me ssage] code = 37483-6) The system w hic generated this result transmitted ref erence range: /HPF. Th e reference range was not used to int erpret this result as normal/abnormal . WBC, UA (test See_Comment [Automated me ssage] code = 5821-4) The system wh ich generated this result transmitted ref erence range: /HPF. Th e reference range was not used to int erpret this result as normal/abnormal . Bacteria, UA Few (test code = 03473-4) Mucus (test Rare code = 8247-9) Squam Epithel, 13 See_Comment [Automated m essage] UA (test code = The system w hich 81254-5) generated this result transmitted ref erence range: /HPF. Th e reference range was not used to int erpret this result as normal/abnormal . KRISH (test code S Iron Worker ID - tech = KRISH) [facility] Hospital[facility]INALYSIS [id number] 16:43:16 Test Item Value Reference Range Interpretation Comments RBC UA (BEAKER) (test code = 519) 3 /HPF WBC UA (BEAKER) (test code = 520) < /HPF BACTERIA (BEAKER) (test code = 517) Few MUCUS (BEAKER) (test code = 1574) Rare SQUAMOUS EPITHELIAL (BEAKER) (test 13 /HPF code = 516) S Iron Worker ID - techUrinalysis with Microscopic If [id number] 16:42:35 Test Item Value Reference Range Interpretation Comments Color, UA (test code = Light Yellow 5778-6) Clarity, UA (test code = Clear 5767-9) Specific [place], UA (test 1.001-1.035 H code = 5811-5) pH, UA (test code = 6.0 5.0-8.0 5803-2) Protein, UA (test code = Negative Negative 25453-9) Glucose, UA (test code = >1000 mg/dL Negative A 365) Ketones, UA (test code = Negative Negative 2514-8) Bilirubin, UA (test code = Negative Negative 41376-1) Blood, UA (test code = Trace Negative A 75897-6) Nitrite, UA (test code = Positive Negative A 5802-4) Leukocytes, UA (test code Negative Negative = 5799-2) Urobilinogen, UA (test 0.2 0.2-1.0 code = 88049-3) Specimen Source (test code = 2795) KRISH (test code = KRISH) S Iron Worker ID - [auto] Lab Interpretation (test Abnormal code = 40395-8) [facility] with Microscopic If [id number] 16:42:35 Test Item Value Reference Range Interpretation Comments Color, UA (test code = Light Yellow 5778-6) Clarity, UA (test code = Clear 5767-9) Specific [place], UA (test 1.001-1.035 H code = 5811-5) pH, UA (test code = 6.0 5.0-8.0 5803-2) Protein, UA (test code = Negative Negative 02412-4) Glucose, UA (test code = >1000 mg/dL Negative A 365) Ketones, UA (test code = Negative Negative 2514-8) Bilirubin, UA (test code = Negative Negative 78602-4) Blood, UA (test code = Trace Negative A 66946-9) Nitrite, UA (test code = Positive Negative A 5802-4) Leukocytes, UA (test code Negative Negative = 5799-2) Urobilinogen, UA (test 0.2 0.2-1.0 code = 20263-5) Specimen Source (test code = 2795) KRISH (test code = KRISH) S Iron Worker ID - [auto] Lab Interpretation (test Abnormal code = 77275-8) [facility] Hospital[facility]IS WITH MICROSCOPIC IF [id number] 16:42:35 Test Item Value Reference Range Interpretation [...] = 463) SOURCE(BEAKER) (test code = 2795) S Iron Worker ID - [auto][id number] 16:28:16 Test Item Value Reference Range Interpretation Comments PARTIAL THROMBOPLASTIN TIME 24.3 seconds 22.5-36.0 (BEAKER) (test code = 760) PROTHROMBIN TIME/[id number] 16:27:33 Test Item Value Reference Range Interpretation Comments PROTIME (BEAKER) (test code = 12.5 seconds 11.9-14.2 759) INR (BEAKER) (test code = 370) 0.95 <=5.90 RECOMMENDED COUMADIN/WARFARIN INR THERAPY RANGESSTANDARD DOSE: 2.0 - 3.0 Includes: PROPHYLAXIS for venous thrombosis, systemic embolization; TREATMENT for venous thrombosis and/or pulmonary embolus.HIGH RISK: Target INR is 2.5-3.5 for patients with mechanical heart valves.POCT-GLUCOSE [id number] 16:26:18 Test Item Value Reference Range Interpretation Comments POC-GLUCOSE METER 142 mg/dL 70-110 H : TESTED A T [facility] 6720 (BEAKER) (test code = [place], 1538) [address]: S Iron Worker/Techni janie ID = [id number] for GILLES PALMER CT BRAIN CEREBRAL PERFUSION [id number] 16:04:12 [facility] Rylie : 1945 Sex: FCTA BRAIN, CT BRAIN [...] Signed By: Rudy Og08/13/2022 16:06 CDTWorkstation Name: [id number] 16:04:12 [facility] : 1945 Sex: FCTA BRAIN, CT BRAIN CEREBRAL PERFUSION ANALYSIS, CTA CAROTIDINDICATION: Suspected strokeCOMPARISON: NoneTECHNIQUE: Rapid acquisition spiral images were obtained between the aortic archand the cranial vertex during intravenous contrast infusion toreconstruct axial images and angiographic 3D maximum intensityprojections (MIP) .Three dimensional reformatted images were created bassam dedicated workstation. Precon trast images of the brain were alsoobtained. Perfusion imaging technique:Arterial input function: ACAVenous outflow function: TorcularSite of normal perfusion: right anterior territoryStenosis evaluation reported in compliance with NASCET criteria.DOSE REDUCTION: Dose modulation, iterative reconstruction, and/orweight-based adjustment of the mA/kV was utilized to reduce theradiation dose to as low asreasonably achievable.FINDINGS:NECT BRAIN:NONCONTRAST CT HEAD: Cerebral parenchyma: Mild generalizedparenchymal volume loss ispresent.Midline structures: Normally positioned.Cerebellum and brainstem: Normal.Ventricles: Normal volume.Extra-axial spaces: Unremarkable.Calvarium and skull base: Intact. Hyperostosis frontalis is present.Paranasal sinuses and mastoid air cells: Mild mucosal thickening with inthe ethmoid sinuses. Small fluid level in the [...] narrowing by NASCETcriteria Scattered atherosclerotic vascular calcifications.Cervical int ernal carotid arteries: No flow limiting stenosis.Intracranial course of the right proximal cervicalsegment.Vertebral arteries: Codominant. No origin stenosis.Arch anatomy: ConventionalCT PERFUSION PARAMETRIC MAPS: CBF: SymmetricMTT: SymmetricCBV: SymmetricTmax: SymmetricNonvascular findings:Osseous structures: No acute osseous abnormality. Intact calvarium andskull base. Moderate spondylosis and facet arthropathy are presentwithin the spine.Cervical soft tissues: No adenopathy. Patent aerodigestive tract.Lung apices: No apical consolidation or pneumothorax.IMPRESSION:1. No acute vascular abnormality in the head and neck.2. Calcified plaque with less than than 50% atherosclerotic narrowingby NASCET criteria at the carotid bifurcations.3. Symmetric perfusion indices. No acute stroke identified.Electronically Signed By: Rudy Og08/13/2022 16:06 CDTWorkstation Name: [id number] 16:04:12 [facility] : 1945 Sex: FCTA [...] Signed By: Rudy Og08/13/2022 16:06 CDTWorkstation Name: [id number] 16:02:01 Test Item Value Reference Range Interpretation Comments V[facility]AMIN B12 ([facility] (test code = 335 pg/mL 213-816 774) S Iron Worker ID - BSHIV-1 ANTIGEN WITH HIV-1/2 [id number] 15:51:08 Test Item Value Reference Range Interpretation Comments HIV-1 ANTIGEN WITH HIV 1\\T\\2 Nonreactive Nonreactive ANTIBODY (2) ([facility]) (test code = 2586) S Iron Worker ID - ADMINTSH/FREE T4 IF [id number] 15:51:07 Test Item Value Reference Range Interpretation Comments THYROID STIMULATING HORMONE 0.870 uIU/mL 0.350-4.940 ([facility]) (test code = 772) S Iron Worker ID - ADMINHIGH SENSITIVITY TROPONIN [id number] 15:36:33 Test Item Value Reference Range Interpretation Comments HIGH SENSITIVITY TROPONIN I (test 4 pg/ml <=17 code = 8079237) S Iron Worker ID - ADMINThe PROFESSIONAL EMPLOYER CONSULTANT STAT High Sensitivity Troponin-I results should be used in conjunction with other diagnostic information such as ECG, clinical observations and information, and patientsymptoms to aid in the diagnosis of MD. COMPREHENSIVE METABOLIC [id number] 15:35:35 Test Item Value Reference Range Interpretation Comments TOTAL PROTEIN 7.2 gm/dL 6.0-8.3 (AKER) (test code = 770) ALBUMIN (AKER) 4.0 g/dL 3.5-5.0 (test code = 1145) ALKALINE 128 U/L 40-150 PHOSPHATASE (AKER) (test code = 346) BILIRUBIN TOTAL 0.3 mg/dL 0.2-1.2 (AKER) (test code = 377) SODIUM (AKER) 139 meq/L 136-145 (test code = 381) [...] high >=90 G2 Mildly decreased 60-89 G3a Mild ly to moderately 45-5 9 G3b Moderately to [...] not appl icable for dialysis patien ts S Iron Worker ID - BSC-REACTIVE [id number] 15:35:35 Test Item Value Reference Range Interpretation Comments C-REACTIVE PROTEIN (BEAKER) (test 1.57 mg/dL 0.00-0.50 H code = 676) S Iron Worker ID - BSPOCT-GLUCOSE [id number] 15:24:18 Test Item Value Reference Range Interpretation Comments POC-GLUCOSE METER 135 mg/dL 70-110 H : TESTED A T [facility] 6720 (BEAKER) (test code = [place], 1538) 78[address]: S Iron Worker/Techni janie ID = [id number] for RE GILLES FARFAN CBC W/PLT COUNT & AUTO [id number] 15:23:04 Test Item Value Reference Range Interpretation [...] code = 2801) Hemoglobin A1c measurement device [id number] 10:07:47 Test Item Value Reference Range Interpretation Comments Hemoglobin A1C Fingerstick: (test code 6.9 = Hemoglobin A1C Fingerstick:) [facility]] in Capillary [id number] 10:04:25 Test Item Value Reference Range Interpretation Comments Blood Glucose: mg/dl (test code = Blood 112 Glucose: mg/dl) [facility] HospitalHem[facility] A[facility]c measurement device [id number] 11:02:48 Test Item Value Reference Range Interpretation Comments Hemoglobin A1C Fingerstick: (test code 7.2 = Hemoglobin A1C Fingerstick:) [facility] HospitalGlucose [Mass/volume] in Capillary [id number] 10:55:53 Test Item Value Reference Range Interpretation Comments Blood Glucose: mg/dl (test code = Blood 247 Glucose: mg/dl) [facility]
[2022-10-27 13:42] LABS: Specific Gravity 1.029 (1.005-1.030); Urine Bacteria <20 /HPF (<20); Urine Bilirubin NEGATIVE (Negative); Urine Blood Negative (Negative); Urine Clarity Clear (Clear); Urine Color Light-Yellow (Yellow); Urine Glucose 4+ (Over) (Negative); Urine Protein TRACE (Negative); Urine RBC <5 /HPF (None Seen); Urine Urobilinogen Normal (Normal)
--- NOTE | 2022-10-27 13:44 | RAD REPORT ---
EXAM DESCRIPTION: [place] Single View10/27/2022 12:56 pm CLINICAL HISTORY: DYSPNEA COMPARISON: Chest Single View dated 10/23/2022; Chest Pa And Lat (2 Views) dated 09/30/2022; Chest Sin gle View dated 08/13/2022; Chest Pa And Lat (2 Views) dated 07/10/2022 TECHNIQUE: Portable AP view of the chest. FINDINGS: Under penetration somewhat limits evaluation. The lungs are clear. No pneumothorax or eff usion. The cardiomediastinal contours are unremarkable. IMPRESSION: No acute cardiopulmonary process.
[2022-10-27 14:21] LABS: Absolute Lymphocytes (CBC) 2.4 K/uL (0.7-4.9); Hematocrit 31.4 % (36.0-45.0); Lymphocytes % 21.9 % (15.3-44.8); MCV 79.5 fL (80-100); Platelets 257 thou/uL (152-406); RBC Red Blood Cell Count 3.94 M/uL (3.86-4.86)
[2022-10-27 14:31] LABS: Albumin 2.7 g/dL (3.4-5.0); Bilirubin Total 0.5 mg/dL (0.2-1.0); Potassium 3.2 mEq/L (3.5-5.1); Protein, Total 6.7 g/dL (6.4-8.2)
[2022-10-27] MEDS ORDERED: NA CHLORIDE 0.9% 1,000 ML ONE ×2 (16:45→17:25)
[2022-10-27] MEDS ORDERED: METOCLOPRAMIDE 10 MG/2mL INJ ONE (17:24)
[2022-10-27] MEDS ORDERED: POTASSIUM CL SA 10 MEQ TAB PO ONE (17:24)
[2022-10-27] MEDS ORDERED: ACETAMINOPHEN 500 MG TAB ONE (17:25)
--- NOTE | 2022-10-27 18:17 | ER ---
Nurse's Notes [facility] Name: Kiley Ortega Age: 77 yrs Sex: Female : 1945 Arrival Date: 10/27/2022 Time: 12:10 Bed 5 Private MD: Diagnosis: COPD/ Chronic obstructive pulmonary disease, unspecified;Myalgia;Nausea with vomiting, unspecified;Hypokalemia;Viral infection, unspecified Presentation: 10/27 12:13 Chief complaint: EMS states: toned out to patient home for difficulty ld1 breathing/headache. Pt reports being seen in ER two days ago for diarrhea, fatigue, body aches, headache, nausea. Coronavirus screen: At this time, the client does not indicate any symptoms associated with coronavirus-19. Ebola Screen: No symptoms or risks identified at this time. Initial Sepsis Screen: Does the patient meet any 2 criteria? No. Patient's initial sepsis screen is negative. Does the patient have a suspected source of infection? No. Patient's initial sepsis screen is negative. Risk Assessment: Do you want to hurt yourself or someone else? Patient reports no desire to harm self or others. Onset of symptoms was October 27, 2022. 12:13 Method Of Arrival: EMS: [facility] ld1 12:13 Acuity: SHELLEY 3 ld1 Triage Assessment: 12:14 General: Appears in no apparent distress. comfortable, Behavior is calm, cooperative, ld1 appropriate for age. Pain: Complains of pain in face Pain does not radiate. Pain currently is 6 out of 10 on a pain scale. Quality of pain is described as throbbing. EENT: No signs and/or symptoms were reported regarding the EENT system. Neuro: Level of Consciousness is awake, alert, obeys commands, Oriented to person, place, time, situation. Cardiovascular: Capillary refill < 3 seconds Patient's skin is warm and dry. Rhythm is sinus rhythm. Respiratory: Airway is patent Respiratory effort is even, unlabored. GI: Abdomen is round non-distended. : No signs and/or symptoms were reported regarding the genitourinary system. Derm: No signs and/or symptoms reported regarding the dermatologic system. Musculoskeletal: No signs and/or symptoms reported regarding the musculoskeletal system. Historical: - Allergies: 12:14 Iodinated Contrast Media - IV Dye; ld1 12:14 Tegretol; ld1 12:14 trelegy; ld1 - PMHx: 12:14 breast cancer-right side; TIA; cervical cancer; Hypertension; COPD; Myopathy; Diabetes ld1 - NIDDM; Kidney stone; neuropathy; - PSHx: 12:14 Total abdominal hysterectomy; ld1 - Immunization history:: Adult Immunizations up to date. - Social history:: Smoking status: Patient denies any tobacco usage or history of. Screenin:15 [facility] ED Fall Risk Assessment (Adult) History of falling in the last 3 months, ld1 including since admission No falls in past 3 months (0 pts). Abuse screen: Denies threats or abuse. Denies injuries from another. Nutritional screening: No deficits noted. Tuberculosis screening: No symptoms or risk factors identified. Assessment: 12:15 Reassessment: See triage assessment. ld1 13:30 Reassessment: Patient appears in no apparent distress at this time. Patient and/or ld1 family updated on plan of care and expected duration. Pain level reassessed. Patient is alert, oriented x 3, equal unlabored respirations, skin warm/dry/pink. 15:20 Reassessment: Patient appears in no apparent distress at this time. No changes from ld1 previously documented assessment. Patient and/or family updated on plan of care and expected duration. Pain level reassessed. 17:00 Reassessment: Patient appears in no apparent distress at this time. No changes from ld1 previously documented assessment. Patient and/or family updated on plan of care and expected duration. Pain level reassessed. 18:40 Reassessment: Patient appears in no apparent distress at this time. No changes from ld1 previously documented assessment. Patient and/or family updated on plan of care and expected duration. Pain level reassessed. Patient is alert, oriented x 3, equal unlabored respirations, skin warm/dry/pink. Vital Signs: 12:13 BP 101 / 63; Pulse 88; Resp 18; Temp 99.7(O); Pulse Ox 91% on 2 lpm NC; Weight 79 kg; ld1 Height 5 ft. 2 in. ; Pain 6/10; 12:15 BP 100 / 29; Pulse 85; Resp 16; Pulse Ox 97% ; ko1 12:30 BP 97 / 32; Pulse 83; Resp 16; Pulse Ox 97% ; ko1 15:00 BP 110 / 50; Pulse 82; Resp 18; Pulse Ox 98% on 2 lpm NC; ko1 17:00 BP 107 / 55; Pulse 79; Resp 18; Pulse Ox 93% on 2 lpm NC; ld1 12:13 Body Mass Index 31.85 (79.00 kg, 157.48 cm) ld1 12:13 Pain Scale: Adult ld1 ED Course: 12:12 Patient arrived in ED. ds4 12:14 Triage completed. ld1 12:14 Arm band placed on right wrist. ld1 12:15 Patient has correct armband on for positive identification. Placed in gown. Bed in low ld1 position. Call light in reach. Side rails up X2. locomotive observer on. Pulse ox on. NIBP on. Door closed. Noise minimized. Warm blanket given. 12:15 No provider procedures requiring assistance completed. ld1 12:21 Simeon Ramirez is Attending Physician. ci 12:32 Nenita Aguilar, RN is Primary Nurse. ld1 12:47 Urinalysis w/ reflexes Sent. hb 12:58 XRAY Chest (1 view) In Process Unspecified. EDMS 13:21 Flu Sent. ld1 13:21 COVID-19 SARS RT PCR Sent. ld1 13:39 Urinalysis w/ reflexes Sent. sm8 14:08 Inserted saline lock: 24 gauge in left forearm, using aseptic technique. Blood ds4 collected. 18:25 Provided Education on: na. ko1 18:41 IV discontinued, intact, bleeding controlled, No redness/swelling at site. ld1 Administered Medications: 16:40 Drug: NS 0.9% IV 1000 ml Route: IV; Rate: 1000 ml; Site: right antecubital; ld1 17:17 Drug: metoCLOPramide IVP 10 mg Route: IVP; Site: left antecubital; rs5 17:35 Drug: Acetaminophen PO 1000 mg Route: PO; rs5 17:35 Drug: Potassium Chloride PO 40 mEq Route: PO; rs5 Medication: 12:15 VIS not applicable for this client. ld1 Outcome: 18:17 Discharge ordered by . ci 18:41 Discharged to home via wheelchair, with family. ld1 18:41 Condition: stable 18:41 Discharge instructions given to patient, Instructed on discharge instructions, follow up and referral plans. Demonstrated understanding of instructions, follow-up care. 18:41 Patient left the ED. ld1 Signatures: Dispatcher [employer] EDArturo Odonnell ds4 Trish Claros, RN RN Nenita Aviles RN RN ld1 Zita Agustin RN RN ko1 Garcia Law RN RN rs5 Yamilka Ryan [facility] Simeon Ramirez
--- NOTE | 2022-10-27 18:17 | EDPHYS ---
Physician Documentation [facility] Name: Kiley Ortega Age: 77 yrs Sex: Female : 1945 Arrival Date: 10/27/2022 Time: 12:10 Bed 5 Private MD: ED Physician Simeon Ramirez HPI: 10/27 13:14 This 77 yrs old Female presents to ER via EMS with complaints of Breathing Difficulty. ci 17:47 Patient is a 77-year-old female with PMH hypertension, TIA, COPD on 2L home NC who ci presents to the ED for multiple complaints including headache, myalgias, shortness of breath, diarrhea, nausea/vomiting, generalized weakness, fever has been ongoing for the past few days. Patient was seen in the ED and discharged from the hospital 2 days ago. She reports continuing symptoms which prompted the ED visit.. 17:52 The patient has experienced similar episodes in the past, a few times. ci Historical: - Allergies: 12:14 Iodinated Contrast Media - IV Dye; ld1 12:14 Tegretol; ld1 12:14 trelegy; ld1 - PMHx: 12:14 breast cancer-right side; TIA; cervical cancer; Hypertension; COPD; Myopathy; Diabetes ld1 - NIDDM; Kidney stone; neuropathy; - PSHx: 12:14 Total abdominal hysterectomy; ld1 - Immunization history:: Adult Immunizations up to date. - Social history:: Smoking status: Patient denies any tobacco usage or history of. ROS: 14:00 Neuro: Positive for headache, Negative for dizziness, gait disturbance, visual changes, ci weakness. 14:00 Cardiovascular: Negative for chest pain, palpitations, and edema, Skin: Negative for ci injury, rash, and discoloration. 14:00 Constitutional: Positive for 14:00 Constitutional: 14:00 Constitutional: Positive for 17:53 Constitutional: Positive for body aches, chills, fever. ci 17:53 Cardiovascular: Positive for 17:53 Respiratory: Positive for shortness of breath. 17:53 Abdomen/GI: Positive for nausea, vomiting, diarrhea. 17:53 MS/extremity: Positive for tenderness. 17:53 All other systems are negative. Exam: 17:53 Constitutional: This is a well developed, well nourished patient who is awake, alert, ci and in no acute distress. Head/Face: Normocephalic, atraumatic. Eyes: Pupils equal round and reactive to light, extra-ocular motions intact. Lids and lashes normal. Conjunctiva and sclera are non-icteric and not injected. Cornea within normal limits. Periorbital areas with no swelling, redness, or edema. ENT: Nares patent. No nasal discharge, no septal abnormalities noted. Tympanic membranes are normal and external auditory canals are clear. Oropharynx with no redness, swelling, or masses, exudates, or evidence of obstruction, uvula midline. Mucous membranes moist. Neck: Trachea midline, no thyromegaly or masses palpated, and no cervical lymphadenopathy. Supple, full range of motion without nuchal rigidity, or vertebral point tenderness. No Meningismus. Chest/axilla: Normal chest wall appearance and motion. Nontender with no deformity. No lesions are appreciated. Cardiovascular: Regular rate and rhythm with a normal S1 and S2. No gallops, murmurs, or rubs. Normal PMI, no JVD. No pulse deficits. Respiratory: Lungs have equal breath sounds bilaterally, clear to auscultation and percussion. No rales, rhonchi or wheezes noted. No increased work of breathing, no retractions or nasal flaring. Abdomen/GI: Soft, non-tender, with normal bowel sounds. No distension or tympany. No guarding or rebound. No evidence of tenderness throughout. Skin: Warm, dry with normal turgor. Normal color with no rashes, no lesions, and no evidence of cellulitis. MS/ Extremity: Pulses equal, no cyanosis. Neurovascular intact. Full, normal range of motion. Neuro: Awake and alert, GCS 15, oriented to person, place, time, and situation. Cranial nerves II-XII grossly intact. Motor strength 5/5 in all extremities. Sensory grossly intact. Cerebellar exam normal. Normal gait. Psych: Awake, alert, with orientation to person, place and time. Behavior, mood, and affect are within normal limits. Vital Signs: 12:13 BP 101 / 63; Pulse 88; Resp 18; Temp 99.7(O); Pulse Ox 91% on 2 lpm NC; Weight 79 kg; ld1 Height 5 ft. 2 in. ; Pain 6/10; 12:15 BP 100 / 29; Pulse 85; Resp 16; Pulse Ox 97% ; ko1 12:30 BP 97 / 32; Pulse 83; Resp 16; Pulse Ox 97% ; ko1 15:00 BP 110 / 50; Pulse 82; Resp 18; Pulse Ox 98% on 2 lpm NC; ko1 17:00 BP 107 / 55; Pulse 79; Resp 18; Pulse Ox 93% on 2 lpm NC; ld1 12:13 Body Mass Index 31.85 (79.00 kg, 157.48 cm) ld1 12:13 Pain Scale: Adult ld1 MDM: 12:22 Patient medically screened. ci 17:06 ED course: Chart review shows patient has had 3 CAT scans in the past week. Last CAT ci scan on 10/23/2022 is unremarkable for acute abnormality, questionable diarrheal illness. Patient's pain is chronic and unchanged. CAT scan was canceled.. 17:53 Differential diagnosis: Bronchitis Influenza, viral syndrome, UTI, chronic abdominal ci pain. 17:53 Test considered but Not performed: Other Details Abdominal exam unremarkable on ci arrival, serial abdominal exams unchanged. Patient had CT abdomen/pelvis on 10/23, CT impression shows diarrheal state with no acute abnormality. Pain is chronic and unchanged, imaging deferred.. Historians other than the Patient: EMS: . External Records Reviewed:. Care significantly affected by the following chronic conditions: Hypertension. 18:11 Care significantly affected by the following chronic conditions: Diabetes, Chronic ci Obstructive Pulmonary Disease. Response to treatment: the patient's symptoms have markedly improved after treatment. ED course: Patient's symptoms improved. Patient has mild anemia with hemoglobin of 9.9, she denies hematemesis, hematochezia, melena, low suspicion for acute blood loss anemia. Patient reports no diarrhea since Friday. Review of work-up done on 10/23 shows she had negative blood cultures x2, negative influenza. Discussed prescription for PRN inhaler but patient declined, has PRN inhaler and nebs at home. No acute findings warranting admission at this time. Stable for discharge with close PCP and GI follow-up. . 18:18 Special discussion: I discussed with the patient/guardian in detail that at this point ci there is no indication for admission to the hospital. It is understood, however, that if the symptoms persist or worsen the patient needs to return immediately for re-evaluation. Based on the history and exam findings, there is no indication for further emergent testing or inpatient evaluation. I discussed with the patient/guardian the need to see the casing running machine tender for further evaluation of the symptoms. Return to the ER if symptoms worsen. ED course: Patient endorses shortness of breath but reports this is at baseline. She has a history of COPD on 2 L home O2, no increased oxygen requirement in the ED. No wheezing, tachypnea, not in acute exacerbation. Low suspicion for PE given no tachycardia, or hypoxia. She has no calf tenderness on exam. ACS unlikely given no active CP, negative trop, normal EKG. . 18:23 ED course: Abdomen soft, nontender, nondistended with no peritoneal signs. Low ci suspicion for acute abdomen.. 18:29 Data reviewed: vital signs, nurses notes, EMS record, old medical records, Blood ci cultures on 10/23 negative, CT abdomen negative. EKG. 10/27 12:32 Order name: CBC with Diff; Complete Time: 16:10 ci 10/27 17:46 Interpretation: Abnormal: HGB 9.9. ci 10/27 12:32 Order name: CMP; Complete Time: 16:10 ci 10/27 16:11 Interpretation: Abnormal: K 3.2. ci 10/27 12:32 Order name: Lipase; Complete Time: 16:10 ci 10/27 12:32 Order name: Urinalysis w/ reflexes; Complete Time: 13:58 ci 10/27 12:36 Order name: Troponin HS; Complete Time: 16:10 ci 10/27 12:47 Order name: COVID-19 SARS RT PCR; Complete Time: 16:10 hb 10/27 16:11 Interpretation: Within normal limits: SARSCOV2 RT PCR NEGATIVE. ci 10/27 12:47 Order name: Flu; Complete Time: 13:58 hb 10/27 13:58 Interpretation: Within normal limits. ci 10/27 12:36 Order name: XRAY Chest (1 view); Complete Time: 13:58 ci 10/27 13:58 Interpretation: No acute disease. ci 10/27 12:36 Order name: EKG; Complete Time: 12:37 ci 10/27 18:25 Interpretation: Normal sinus rhythm with no acute ischemic changes, HR 84, QTc 439. ci 10/27 12:32 Order name: IV Saline Lock; Complete Time: 14:08 ci 10/27 12:32 Order name: Labs collected and sent; Complete Time: 14:08 ci 10/27 12:32 Order name: Droplet/Contact Precautions; Complete Time: 12:32 ci 10/27 12:32 Order name: Labs collected and sent; Complete Time: 14:08 ci 10/27 12:32 Order name: O2 Per Protocol; Complete Time: 12:32 ci 10/27 12:36 Order name: Cardiac monitoring; Complete Time: 12:47 ci 10/27 12:36 Order name: EKG - Nurse/Tech; Complete Time: 13:21 ci Administered Medications: 16:40 Drug: NS 0.9% IV 1000 ml Route: IV; Rate: 1000 ml; Site: right antecubital; ld1 17:17 Drug: metoCLOPramide IVP 10 mg Route: IVP; Site: left antecubital; rs5 17:35 Drug: Acetaminophen PO 1000 mg Route: PO; rs5 17:35 Drug: Potassium Chloride PO 40 mEq Route: PO; rs5 Disposition Summary: 10/27/22 18:17 Discharge Ordered Location: Home ci Condition: Stable ci Diagnosis - COPD/ Chronic obstructive pulmonary disease, unspecified ci - Myalgia ci - Nausea with vomiting, unspecified ci - Hypokalemia ci - Viral infection, unspecified ci Followup: ci - With: Private Physician - When: 1 - 2 days - Reason: Recheck today's complaints, Re-evaluation by your physician Discharge Instructions: - Discharge Summary Sheet ci - Chronic Obstructive Pulmonary Disease ci - Muscle Pain, Adult ci - Nausea, Adult ci - Hypokalemia ci - Viral Illness, Adult ci Forms: - Medication Reconciliation Form ci - Thank You Letter ci - Antibiotic Education ci - Prescription Opioid Use ci - Patient Portal Instructions ci - Leadership Thank You Letter ci Signatures: Dispatcher [employer] EDNenita Muse RN RN ld1 Garcia Law RN RN rs5 Simeon Ramirez ci Corrections: (The following items were deleted from the chart) 16:53 16:14 Abdomen Pelvis Wo Con+CT.RAD.BRZ ordered. EDMS EDMS 18:22 18:18 Special discussion: I discussed with the patient/guardian in detail that at this ci point there is no indication for admission to the hospital. It is understood, however, that if the symptoms persist or worsen the patient needs to return immediately for re-evaluation. Return to the ER if symptoms worsen. ci 18:29 16:40 NS 0.9% IV 1000 ml IV at 1000 ml once given. ld1 ci 18:29 17:53 Test considered but Not performed: Other Details Patient had CT abdomen/pelvis on ci 10/23, CT impression shows diarrheal state with no acute abnormality. Pain is chronic and unchanged, imaging deferred.. ci 10/28 09:42 10/27 17:47 Patient is a 77-year-old female with PMH hypertension, TIA, COPD who ci presents to the ED for multiple complaints including headache, myalgias, chest pain, shortness of breath, diarrhea, nausea/vomiting, generalized weakness, fever has been ongoing for the past few days. Patient was seen in the ED and discharged from the hospital 2 days ago. She reports continuing symptoms which prompted the ED visit.. ci 10/28 09:59 10/27 17:47 Patient is a 77-year-old female with PMH hypertension, TIA, COPD who ci presents to the ED for multiple complaints including headache, myalgias, shortness of breath, diarrhea, nausea/vomiting, generalized weakness, fever has been ongoing for the past few days. Patient was seen in the ED and discharged from the hospital 2 days ago. She reports continuing symptoms which prompted the ED visit.. ci 10/28 09:59 10/27 17:47 Patient is a 77-year-old female with PMH hypertension, TIA, COPD on 2L NC ci who presents to the ED for multiple complaints including headache, myalgias, shortness of breath, diarrhea, nausea/vomiting, generalized weakness, fever has been ongoing for the past few days. Patient was seen in the ED and discharged from the hospital 2 days ago. She reports continuing symptoms which prompted the ED visit.. ci 10/28 10:10 10/27 18:11 ED course: Patient's symptoms improved. Patient has mild anemia with ci hemoglobin of 9.9, she denies hematemesis, hematochezia, melena, low suspicion for acute blood loss anemia. Patient reports no diarrhea since Friday. Review of work-up done on 10/23 shows she had negative blood cultures x2, negative influenza. No acute findings warranting admission at this time. Stable for discharge with close PCP and GI follow-up.. ci 10/28 10:10 10/27 18:18 ED course: Patient endorses shortness of breath but reports this is at baseline. She has a history of COPD on 2 L home O2, no increased oxygen requirement in the ED. No wheezing, tachypnea. Low suspicion for PE given no tachycardia, or hypoxia. She has no calf tenderness on exam.. ci
[2022-10-27 19:22] VITALS: TEMP 99.7
[2022-10-27 19:46] VITALS: BP 107/55; O2SAT 93
[2022-10-28] MEDS ORDERED: ETOMIDATE 20 MG/10 ML VIAL IV ONE (04:56)
[2022-10-28] MEDS ORDERED: ROCURONIUM 50 MG/5 ML VIAL IV ONE (04:57)
--- NOTE | 2022-10-28 19:06 | EKG ---
Test Date: 2022-10-27 Test Time: 12:58:04 Reproductive Surgeon: INDIO MEASUREMENT RESULTS: Intervals: Rate: 84 CT: 176 QRSD: 80 QT: 372 QTc: 439 Lindsay: P: 83 CT: 176 QRS: 52 T: 62 INTERPRETIVE STATEMENTS: Normal sinus rhythm Normal ECG Compared to ECG 10/23/2022 17:22:59 No significant changes Electronically Signed On 10-28-22 19:04:17 CDT by Eliazar Bergeron
== END 2022-10-27 18:41 | disposition home or self-care (01) ==
LOC: ER 12:10
DX: J44.9 Chronic obstructive pulmonary disease, unspecified (principal); B34.9 Viral infection, unspecified; R11.2 Nausea with vomiting, unspecified; M79.10 Myalgia, unspecified site; E87.6 Hypokalemia; Z99.81 Dependence on supplemental oxygen; Z20.822 Contact with and (suspected) exposure to COVID-19; Z88.8 Allergy status to other drugs, medicaments and biological substances; Z91.041 Radiographic dye allergy status
CPT/HCPCS: 93005; 85025; 81001; 36415; 84484; 83690; 80053; 87635; 87804 ×2; 71045; 96374; 99285; J2765; J7030 ×2

== ENCOUNTER → 2023-03-09 | Emergency (ER) | payer OTHER ==
[~2023-03-09] MED LIST changes: +DICYCLOMINE HCL 20 MG/2 ML AMP IM ONE; -ETOMIDATE 20 MG/10 ML VIAL IV ONE; +LEVALBUTEROL 1.25 MG/3 ML NEB ONE; +ONDANSETRON 4 MG/2 ML VIAL ONE; -SUCCINYLCHOLINE 20 MG/ML (10 ML) IV ONE
--- NOTE | 2023-03-09 12:22 | RAD REPORT ---
EXAM DESCRIPTION: RAD - Chest Single View - 03/09/2023 12:01 pm CLINICAL HISTORY: DYSPNEA COMPARISON: Chest Single View dated 11/01/2022; Chest Single View dated 10/31/2022; Chest Single View dated 10/30/2022; Chest Single View dated 10/29/2022 FINDINGS: Lines: None. Lungs: No evidence of edema or pneumonia. Mild chronic prominence of the interstitium. Pleural: No significant pleural effusions or pneumothorax. Cardiac: Similar size and configuration. Mediastinum: Within normal limits. Bones: No acute fractures. Other: None IMPRESSION: No acute cardiopulmonary disease.
[2023-03-09 12:59] LABS: Absolute Lymphocytes (CBC) 1.3 K/uL (0.7-4.9); Hematocrit 32.5 % (36.0-45.0); Lymphocytes % 12.3 % (15.3-44.8); MCV 76.9 fL (80-100); MPV 7.8 fL (7.6-11.3); Platelets 325 thou/uL (152-406); RBC Red Blood Cell Count 4.23 M/uL (3.86-4.86)
[2023-03-09 13:20] LABS: ALT/SGPT 25 U/L (13-56); AST/SGOT 21 U/L (15-37); Albumin 3.2 g/dL (3.4-5.0); Alkaline Phosphatase 138 U/L (45-117); BUN Blood Urea Nitrogen 10 mg/dL (7-18); Bicarbonate 24 mEq/L (21-32); Bilirubin Total 0.3 mg/dL (0.2-1.0); Glomerular Filtration Rate 89 ml/min (=/>90); Glucose Level 140 mg/dL (74-106); Potassium 3.9 mEq/L (3.5-5.1); Protein, Total 7.1 g/dL (6.4-8.2); Sodium Level 139 mEq/L (136-145); Troponin High Sensitivity 7.3 pg/mL (<58.9)
[2023-03-09 13:27] LABS: Bilirubin Direct < 0.1 mg/dL (0-0.2); Bilirubin Indirect, Calculated ND mg/dL (0.2-0.8)
--- NOTE | 2023-03-09 14:57 | EDPHYS ---
Physician Documentation [facility] Name: Kiley Ortega Age: 77 yrs Sex: Female : 1945 Arrival Date: 03/09/2023 Time: 11:36 Bed 17 Private MD: ED Physician Aly Malone HPI: 03/09 12:16 This 77 yrs old Female presents to ER via EMS with complaints of Shortness Of Breath. rt 12:16 . Patient with history of COPD chronically on 2 L of oxygen presents to the ED with rt acute onset of shortness of breath about 35 minutes prior to arrival. Patient received more oxygen, and a treatment, nebulizer treatment, Solu-Medrol prior to arrival. There are some modest relief with symptoms. Denies other acute complaints at this time, symptoms are moderate in severity, no other aggravating leaving factors.. Historical: - Allergies: 11:43 Iodinated Contrast Media - IV Dye; hb 11:43 Tegretol; hb 11:43 trelegy; hb - Home Meds: 11:43 Home O2 - PRN [Active]; hb - PMHx: 11:43 breast cancer-right side; cervical cancer; COPD; Diabetes - NIDDM; Hypertension; Kidney hb stone; Myopathy; neuropathy; TIA; - PSHx: 11:43 Total abdominal hysterectomy; hb - Immunization history:: Adult Immunizations up to date. - Social history:: Smoking status: Patient denies any tobacco usage or history of. ROS: 12:16 Constitutional: Negative for fever, chills, and weight loss, Cardiovascular: Negative rt for chest pain, palpitations, and edema, MS/Extremity: Negative for injury and deformity, Skin: Negative for injury, rash, and discoloration, Neuro: Negative for headache, weakness, numbness, tingling, and seizure, Psych: Negative for depression, anxiety, suicide ideation, homicidal ideation, and hallucinations, 12:16 Respiratory: Positive for cough, shortness of breath, wheezing, 12:16 Abdomen/GI: Positive for nausea, Abdominal cramping, Exam: 12:16 Constitutional: This is a well developed, well nourished patient who is awake, alert, rt and in no acute distress. Head/Face: Normocephalic, atraumatic. Chest/axilla: Normal chest wall appearance and motion. Nontender with no deformity. No lesions are appreciated. Cardiovascular: Regular rate and rhythm with a normal S1 and S2. No gallops, murmurs, or rubs. Normal PMI, no JVD. No pulse deficits. Abdomen/GI: Soft, non-tender, with normal bowel sounds. No distension or tympany. No guarding or rebound. No evidence of tenderness throughout. Skin: Warm, dry with normal turgor. Normal color with no rashes, no lesions, and no evidence of cellulitis. MS/ Extremity: Pulses equal, no cyanosis. Neurovascular intact. Full, normal range of motion. Neuro: Awake and alert, GCS 15, oriented to person, place, time, and situation. Cranial nerves II-XII grossly intact. Motor strength 5/5 in all extremities. Sensory grossly intact. Cerebellar exam normal. Normal gait. Psych: Awake, alert, with orientation to person, place and time. Behavior, mood, and affect are within normal limits. 12:16 Respiratory: Wheezes, diminished breath sounds heard on all lung samson, no respiratory distress, 15:07 ECG was reviewed by the Attending Physician. rt Vital Signs: 11:41 BP 142 / 48; Pulse 97; Resp 24; Temp 99(O); Pulse Ox 100% on R/A; Pain 10/10; hb 13:00 BP 117 / 54; Pulse 80; Resp 20; Pulse Ox 96% 3 lpm ; cp4 14:15 BP 117 / 53; Pulse 82; Resp 17 S; Pulse Ox 95% on 3 lpm NC; as6 15:00 BP 121 / 54; Pulse 74; Resp 18; Pulse Ox 98% ; cp4 11:41 Pain Scale: Adult hb MDM: 11:41 Patient medically screened. rt 15:08 Differential diagnosis: Pneumonia, COPD, CHF. Data reviewed: vital signs, nurses notes, rt lab test result(s), EKG, radiologic studies. Consideration of Admission/Observation Escalation of care including admission/observation considered. Symptoms improving, vital signs stable, workup benign, no indications for admission to the hospital, return precautions discussed. Independent interpretation of the following test(s) in the Emergency Department X-Ray: My interpretation is No pneumonia seen on interpretation of x-ray images. Test considered but Not performed: CT: Low suspicion for PE, CT angiogram not indicated. Care significantly affected by the following chronic conditions: Chronic Obstructive Pulmonary Disease. Counseling: I had a detailed discussion with the patient and/or guardian regarding the historical points, exam findings, and any diagnostic results supporting the discharge/admit diagnosis, lab results, radiology results, the need for outpatient follow up, to return to the emergency department if symptoms worsen or persist or if there are any questions or concerns that arise at home. Response to treatment: the patient's symptoms have markedly improved after treatment. 03/09 11:43 Order name: Basic Metabolic Panel; Complete Time: 13:33 rt 03/09 11:43 Order name: CBC with Diff; Complete Time: 13:33 rt 03/09 11:43 Order name: LFT's; Complete Time: 13:33 rt 03/09 11:43 Order name: Magnesium; Complete Time: : rt 03/09 11:43 Order name: Troponin HS; Complete Time: 13:33 rt 03/09 11:43 Order name: XRAY Chest (1 view); Complete Time: 12:28 rt 03/09 11:43 Order name: EKG; Complete Time: 11:44 rt 03/09 11:43 Order name: Cardiac monitoring; Complete Time: 12:18 rt 03/09 11:43 Order name: EKG - Nurse/Tech; Complete Time: 12:38 rt 03/09 11:43 Order name: IV Saline Lock; Complete Time: 12:18 rt 03/09 11:43 Order name: Labs collected and sent; Complete Time: 12:52 rt 03/09 11:43 Order name: O2 Per Protocol; Complete Time: 12:18 rt 03/09 11:43 Order name: O2 Sat Monitoring; Complete Time: 12:18 rt EC:07 Rate is 90 beats/min. Rhythm is regular, Normal Sinus Rhythm with No ectopy. QRS [place] rt is Normal. [place] interval is normal. QRS interval is normal. QT interval is normal. No Q waves. T waves are Normal. No ST changes noted. Interpreted by me. Administered Medications: 12:37 Drug: Ondansetron IVP 4 mg IVP once; over 2 minutes Route: IVP; Site: left hand; cp4 15:08 Follow up: Response: No adverse reaction cp4 12:37 Drug: Dicyclomine IM 20 mg IM once Route: IM; Site: right deltoid; cp4 15:08 Follow up: Response: No adverse reaction cp4 12:38 Drug: Levalbuterol Inhalation 1.25 mg Inhalation once Route: Inhalation; cp4 15:08 Follow up: Response: No adverse reaction cp4 Disposition Summary: 03/09/23 14:57 Discharge Ordered Notes: Location: Home rt Problem: an acute exacerbation rt Symptoms: have improved rt Condition: Stable rt Diagnosis - COPD/ Chronic obstructive pulmonary disease with (acute) exacerbation rt Followup: rt - With: Private Physician - When: 2 - 3 days - Reason: Discharge Instructions: - Discharge Summary Sheet rt - Chronic Obstructive Pulmonary Disease rt Forms: - Medication Reconciliation Form rt - Thank You Letter rt - Antibiotic Education rt - Prescription Opioid Use rt - Patient Portal Instructions rt - Leadership Thank You Letter rt Prescriptions: - Prednisone 20 mg Oral Tablet - take 2 tablets ORAL route once daily for 5 days; 10 tablet; Refills: 0, Product rt Selection Permitted Signatures: Dispatcher [employer] Trish Barrera RN RN Aly Malone MD MD rt Joelle Tineo cp4
--- NOTE | 2023-03-09 14:57 | ER ---
Nurse's Notes [facility] Name: Kiley Ortega Age: 77 yrs Sex: Female : 1945 Arrival Date: 03/09/2023 Time: 11:36 Bed 17 Private MD: Diagnosis: COPD/ Chronic obstructive pulmonary disease with (acute) exacerbation Presentation: 03/09 11:41 Chief complaint: EMS states: SOB x 45 mints [facility]. On scene pt tripoding with audible hb wheezing, moderate relief noted after DuoNeb and SoluMedrol 125 mg to 2o RFA. Pt reports malaise, cough, congestion, body aches, headache, and N.D x 2 days. Coronavirus screen: Client presents with at least one sign or symptom that may indicate coronavirus-19. Provider contacted for isolation considerations. Ebola Screen: No symptoms or risks identified at this time. Initial Sepsis Screen: Does the patient meet any 2 criteria? RR > 20 per min. HR > 90 bpm. Yes Does the patient have a suspected source of infection? No. Patient's initial sepsis screen is negative. Risk Assessment: Do you want to hurt yourself or someone else? Patient reports no desire to harm self or others. Onset of symptoms was March 08, 2023. 11:41 Method Of Arrival: EMS: [facility] hb 11:41 Acuity: SHELLEY 3 hb Historical: - Allergies: 11:43 Iodinated Contrast Media - IV Dye; hb 11:43 Tegretol; hb 11:43 trelegy; hb - Home Meds: 11:43 Home O2 - PRN [Active]; hb - PMHx: 11:43 breast cancer-right side; cervical cancer; COPD; Diabetes - NIDDM; Hypertension; Kidney hb stone; Myopathy; neuropathy; TIA; - PSHx: 11:43 Total abdominal hysterectomy; hb - Immunization history:: Adult Immunizations up to date. - Social history:: Smoking status: Patient denies any tobacco usage or history of. Screenin:43 [facility] ED Fall Risk Assessment (Adult) History of falling in the last 3 months, cp4 including since admission No falls in past 3 months (0 pts) Confusion or Disorientation No (0 pts) Intoxicated or Sedated No (0 pts) Impaired Gait No (0 pts) Mobility Assist Device Used No (0 pt) Altered Elimination No (0 pt) Score/Fall Risk Level 0 - 2 = Low Risk Oriented to surroundings, Maintained a safe environment, Educated pt \T\ family on fall prevention, incl call for assistance when getting out of bed, Assessed \T\ reinforced patient's understanding of fall precautions, Hourly rounding (assess needs \T\ fall precautionary measures) done. Abuse screen: Denies threats or abuse. Nutritional screening: No deficits noted. Tuberculosis screening: No symptoms or risk factors identified. Assessment: 12:43 General: Appears in no apparent distress. Behavior is calm, cooperative, appropriate cp4 for age. Pain: Complains of pain in abdomen. Cardiovascular: Rhythm is regular. Respiratory: Airway is patent Respiratory effort is even, unlabored, Breath sounds with wheezes bilaterally. 14:16 General: pt SOB on exasperation . as6 15:13 Reassessment: Patient is alert, oriented x 3, equal unlabored respirations, skin aa5 warm/dry/pink. Patient states feeling better. Patient states symptoms have improved. Vital Signs: 11:41 BP 142 / 48; Pulse 97; Resp 24; Temp 99(O); Pulse Ox 100% on R/A; Pain 10/10; hb 13:00 BP 117 / 54; Pulse 80; Resp 20; Pulse Ox 96% 3 lpm ; cp4 14:15 BP 117 / 53; Pulse 82; Resp 17 S; Pulse Ox 95% on 3 lpm NC; as6 15:00 BP 121 / 54; Pulse 74; Resp 18; Pulse Ox 98% ; cp4 11:41 Pain Scale: Adult hb ED Course: 11:41 Patient arrived in ED. hb 11:41 Aly Malone MD is Attending Physician. rt 11:43 Triage completed. hb 11:43 Arm band placed on. hb 12:01 Trish Claros, RN is Primary Nurse. hb 12:03 XRAY Chest (1 view) In Process Unspecified. EDMS 12:43 Bed in low position. Call light in reach. Side rails up X2. cp4 12:43 Maintain EMS IV. Dressing intact. Site clean \T\ dry. Gauge \T\ site: 20G left wrist. cp 4 12:50 Initial lab(s) drawn, by me, sent to lab. Inserted saline lock: 22 gauge in right aa5 forearm, using aseptic technique. Blood collected. 12:54 Basic Metabolic Panel Sent. cp4 12:54 CBC with Diff Sent. cp4 12:54 LFT's Sent. cp4 12:54 Magnesium Sent. cp4 12:54 Troponin HS Sent. cp4 14:16 Assisted to bedside commode. as6 14:41 Primary Nurse role handed off by Trish Claros RN cp4 14:41 Joelle Tineo is Primary Nurse. cp4 15:10 No provider procedures requiring assistance completed. IV discontinued, intact, aa5 bleeding controlled, No redness/swelling at site. Pressure dressing applied. Administered Medications: 12:37 Drug: Ondansetron IVP 4 mg IVP once; over 2 minutes Route: IVP; Site: left hand; cp4 15:08 Follow up: Response: No adverse reaction cp4 12:37 Drug: Dicyclomine IM 20 mg IM once Route: IM; Site: right deltoid; cp4 15:08 Follow up: Response: No adverse reaction cp4 12:38 Drug: Levalbuterol Inhalation 1.25 mg Inhalation once Route: Inhalation; cp4 15:08 Follow up: Response: No adverse reaction cp4 Medication: 12:43 VIS not applicable for this client. cp4 Outcome: 14:57 Discharge ordered by MD. rt 15:10 Discharged to home via wheelchair, with family, aa5 15:10 Condition: improved 15:10 Discharge instructions given to patient, Instructed on discharge instructions, follow up and referral plans. medication usage, Demonstrated understanding of instructions, follow-up care, medications, Prescriptions given X 1, 15:13 Patient left the ED. aa5 Signatures: Dispatcher [employer] EDIN Hortensia Diaz RN RN aa5 Trish Claros, YUNIOR MOJICA Harish Sargent RN RN as6 Aly Malone MD MD rt Joelle Tineo cp4 Corrections: (The following items were deleted from the chart) 11:44 11:41 Initial Sepsis Screen: Does the patient meet any 2 criteria? HR > 90 bpm. No. hb Patient's initial sepsis screen is negative. Does the patient have a suspected source of infection? No. Patient's initial sepsis screen is negative. hb
[2023-03-09 17:30] VITALS: TEMP 99
[2023-03-09 17:46] VITALS: BP 121/54; O2SAT 98
== END ==
LOC: ER 11:36
DX: J44.1 Chronic obstructive pulmonary disease with (acute) exacerbation (principal); E11.9 Type 2 diabetes mellitus without complications; I10 Essential (primary) hypertension; Z99.81 Dependence on supplemental oxygen; Z88.8 Allergy status to other drugs, medicaments and biological substances; Z91.041 Radiographic dye allergy status
CPT/HCPCS: 93005; 85025; 80048; 36415; 83735; 80076; 84484; 71045; J0500; J7614; J2405

== ENCOUNTER 2023-09-03 06:08 | Inpatient (IN) | payer OTHER ==
[2023-09-03] MEDS: dexAMETHasone 10 MG/ML VIAL ONE (06:44)
[2023-09-03] MEDS: LIDOCAINE 1% MPF 5 ML VIAL ONE (06:44)
[2023-09-03] MEDS: EPINEPHRINE 1 MG/ML VIAL ONE (06:44)
[2023-09-03] MEDS: propofoL 200 MG/20 ML VIAL IV ONE (06:44)
[2023-09-03] MEDS: NA CHLORIDE 0.9% 1,000 ML ONE (07:06)
[2023-09-03 07:29] LABS: Absolute Basophils 0.1 K/uL (0-0.5); Absolute Eosinophils 0.2 K/uL (0-0.5); Absolute Monocytes 0.7 K/uL (0.1-1.3); Absolute Neutrophil 3.3 K/uL (1.8-8.0); Eosinophils % 2.3 % (0-4.4); Hematocrit 35.8 % (36.0-45.0); Hemoglobin 11.1 g/dL (12.0-15.0); Lymphocytes % 41.8 % (15.3-44.8); MCH 23.7 pg (27.0-35.0); MCHC 30.9 g/dL (32.0-36.0); MCV 76.8 fL (80-100); MPV 8.3 fL (7.6-11.3); Monocytes % 9.5 % (3.3-12.3); Neutrophils % 45.4 % (41.7-73.7); Nucleated Red Blood Cells % 0.3 % (0-0); Platelets 298 thou/uL (152-406); RBC Red Blood Cell Count 4.66 M/uL (3.86-4.86); Red Cell Distribution Width 19.9 % (12.1-15.2)
[2023-09-03 07:43] LABS: Anion Gap 7.8 mEq/L (5.0-15.0); Potassium 3.8 mEq/L (3.5-5.1)
[2023-09-03] MEDS: FENTANYL CITR 100 MCG/2 ML ONE (08:01)
--- NOTE | 2023-09-03 08:06 | RAD REPORT ---
EXAM DESCRIPTION: RAD - Chest Pa And Lat (2 Views) - 09/03/2023 7:30 am CLINICAL HISTORY: pre op. Hypertension COMPARISON: Chest Single View dated 03/09/2023; Chest Single View dated 11/01/2022; Chest Single View dated 10/31/2022; Chest Single View dated 10/30/2022 TECHNIQUE: PA and lateral views of the chest were obtained. FINDINGS: The lungs are clear. Heart size is normal and central vasculature is within normal limits. No pleural effusion or pneumothorax seen. No acute bony finding noted. IMPRESSION: No acute cardiopulmonary process.
[2023-09-03] MEDS ORDERED: ROCURONIUM 50 MG/5 ML VIAL IV ONE (08:47)
[2023-09-03] MEDS ORDERED: propofoL 200 MG/20 ML VIAL IV ONE (08:47)
[2023-09-03] MEDS ORDERED: NEOSTIGMINE 1 MG/ML -10 ML VIAL ONE (08:47)
[2023-09-03] MEDS ORDERED: LIDOCAINE 2% MPF 5 ML VIAL ONE (08:47)
[2023-09-03] MEDS ORDERED: ONDANSETRON 4 MG/2 ML VIAL ONE (08:47)
[2023-09-03] MEDS ORDERED: GLYCOPYRROLATE 0.2 MG/ML SYR ONE (08:47)
[2023-09-03] MEDS: CISATRACURIUM INJECTION 2 MG/ML (10 ML Vial) IV ONE (08:54)
[2023-09-03] MEDS: NA CHLORIDE 0.9% 0 ML ONE (08:59)
[2023-09-03] MEDS: CEFAZOLIN SODIUM 1 GM/VIAL ONE (09:05)
[2023-09-03] MEDS ORDERED: EPHEDRINE SULF 50 MG/ML VIAL ONE (09:16)
[2023-09-03] MEDS ORDERED: KETOROLAC 30 MG/ML INJ ONE (10:53)
--- NOTE | 2023-09-03 11:00 | P.BOP ---
Preoperative diagnosis: right breast recurrent invasive ductal carcinoma Postoperative diagnosis: same Primary procedure: Right modified radical mastectomy Estimated blood loss: <75cc Specimen: breast with axillary dissecction Findings: as above Anesthesia: General Complications: None Drain(s): NIK drain Transferred to: Recovery Room Condition: Good
[2023-09-03] MEDS: HYDROMORPHONE HCL 2 MG/ML inj ONE (11:57)
[2023-09-03] MEDS: NA CHLORIDE 0.9% 1,000 ML IV SCH (13:26)
[2023-09-03] MEDS: CEFOXITIN 1 GM in NA CHLORIDE 0.9% 50 ML IVPB SCH (13:27)
[2023-09-03] MEDS: HYDROMORPHONE HCL 2 MG/ML inj IV PRN (17:13)
[2023-09-03] MEDS: ONDANSETRON 4 MG (ODT) TAB PO PRN (21:36)
[2023-09-04 07:29] LABS: Anion Gap 9.5 mEq/L (5.0-15.0); Potassium 4.5 mEq/L (3.5-5.1)
[2023-09-04] MEDS: SYNJARDY PO SCH (07:42)
[2023-09-04] MEDS: SOLIQUA SQ SCH (07:43)
[2023-09-04 07:57] LABS: Absolute Lymphocytes (CBC) 2.5 K/uL (0.7-4.9); Absolute Monocytes 1.3 K/uL (0.1-1.3); Absolute Neutrophil 8.8 K/uL (1.8-8.0); Basophils % 0.3 % (0-1.3); Hematocrit 33.3 % (36.0-45.0); Hemoglobin 10.1 g/dL (12.0-15.0); Lymphocytes % 19.6 % (15.3-44.8); MCH 23.8 pg (27.0-35.0); MCHC 30.4 g/dL (32.0-36.0); MCV 78.2 fL (80-100); MPV 8.3 fL (7.6-11.3); Monocytes % 10.2 % (3.3-12.3); Neutrophils % 69.9 % (41.7-73.7); Nucleated Red Blood Cells % 0.1 % (0-0); Platelets 317 thou/uL (152-406); RBC Red Blood Cell Count 4.25 M/uL (3.86-4.86); Red Cell Distribution Width 20.1 % (12.1-15.2)
[2023-09-04] MEDS: BUPROPION HCL 150 MG PO SCH (08:44)
[2023-09-04] MEDS: APIXABAN 5 MG TABLET PO SCH (09:11)
[2023-09-04] MEDS: LOSARTAN POTASSIUM 50 MG TABLET PO SCH (09:11)
[2023-09-04] MEDS: hydroCHLOROthiazide 12.5 MG CAP PO SCH (09:12)
[2023-09-04] MEDS: PANTOPRAZOLE 40MG TABLET PO SCH (09:12)
[2023-09-04] MEDS: METOPROLOL TAR 25 MG TAB PO SCH (09:12)
[2023-09-04] MEDS: FLUOXETINE 20 MG CAP PO SCH (09:12)
[2023-09-04] MEDS: AMLODIPINE 10 MG TAB PO SCH (09:12)
[2023-09-04] MEDS: PREGABALIN 150 MG CAP PO SCH (09:12)
--- NOTE | 2023-09-04 09:18 | P.PN ---
Subjective Date of Service: 09/04/23 Subjective: Tolerating diet, Improving (Still feelig weak), Working w/ PT Review of Systems General: Weakness, As per HPI Eyes: Unremarkable ENT: Unremarkable Respiratory: Unremarkable Cardiovascular: Unremarkable Gastrointestinal: Unremarkable Physical Examination - Vital Signs Temperature: 98.0 F Blood Pressure: 186/75 Pulse: 102 Respirations: 16 Pulse Ox (%): 92 - Physical Exam General: Alert, Oriented x3 HEENT: PERRLA, EOMI Neck: Supple Cardiovascular: Normal pulses Gastrointestinal: Soft and benign Integumentary: No rashes, No breakdown Neurological: Normal speech Other Physical/Emotional Findings: NIK minimal - Studies Laboratory Data (last 24 hrs) 09/04/23 09/04/23 07:00 07:00 WBC 12.60 H Hgb 10.1 L D Hct 33.3 L Plt Count 317 Sodium 139 Potassium 4.5 D BUN 19 H Creatinine 1.19 H Glucose 204 H Assessment And Plan - Plan s/o modified radical mastestomy for breast cancer Pt still feling week, poduran elizaldete. Physical therapy consulted to see if we identify opportunities for a safe disharge advane diet IS SVC
[2023-09-04 09:25] LABS: Blood Morphology Comment NOTED (NOT SEEN); Hypochromasia 2+; Platelet Estimate ADEQ; White Blood Cell Scan OK (OK)
[2023-09-04] MEDS: INSULIN REGULAR (HUMAN) 100 UNIT/ML SQ SCH (12:12)
--- NOTE | 2023-09-04 13:19 | EKG ---
Test Date: 2023-09-03 Test Time: 06:51:03 Adjunct Mathematics Instructor: JIM MEASUREMENT RESULTS: Intervals: Rate: 69 NE: 196 QRSD: 76 QT: 410 QTc: 439 [place]: P: 90 NE: 196 QRS: 41 T: 53 INTERPRETIVE STATEMENTS: Normal sinus rhythm Normal ECG Compared to ECG 03/09/2023 12:24:50 No significant changes Electronically Signed On 09-04-23 13:15:08 CDT by Eliazar Bergeron
[2023-09-04] MEDS: ATORVASTATIN 20 MG TAB PO SCH (21:52)
--- NOTE | 2023-09-04 22:18 | P.HP ---
Certification for Inpatient Patient admitted to: Inpatient Practitioner: I am a practitioner with admitting privileges, knowledge of patient current condition, hospital course, and medical plan of care. Services: Services provided to patient in accordance with Admission requirements found in Title 42 Section 412.3 of the Code of Federal Regulations Patient History Date of Service: 09/04/23 Reason for admission: medical mx History of Present Illness: Nancy had MRM by DR. Blas. she is here for one day observation. She is weak and not able to go home. She will sent to [place] for her safetly.. Allergies carbamazepine [From Tegretol] Allergy (Intermediate, Verified 09/03/23 08:08) Hives/Rash Iodinated Contrast Media [IV Dye, Iodine Containing Contrast ] Allergy ([facility] ediate, Verified 09/03/23 08:08) Hives Home medications list reviewed: Yes Home Medications: Atorvastatin Calcium [Lipitor*] 20 mg PO BEDTIME tab 06/01/19 Apixaban [Eliquis] 5 mg PO BID 10/24/22 Metoprolol Tartrate [Lopressor*] 25 mg PO DAILY 10/24/22 Amlodipine [Norvasc*] 1 tab PO DAILY 09/03/23 Empagliflozin/Metformin HCl [Synjardy Xr 25-1,000 mg Tablet] 1 tab PO DAILY 09/03/23 Fluoxetine HCl 1 tab PO DAILY 09/03/23 Insulin Glargine/Lixisenatide [Soliqua 100 Unit-33 Mcg/ml Pen] 60 mg SQ DAILY 09/03/23 Losartan/Hydrochlorothiazide [Losartan-Hctz 100-12.5 mg Tab] 1 tab PO DAILY 09/03/23 Omeprazole 20 mg PO DAILY 09/03/23 Pregabalin 2 tab PO DAILY 09/03/23 buPROPion HCL [Bupropion HCl Sr] 1 tab PO DAILY 09/03/23 - Past Medical/Surgical History Diabetic: Yes -: dm -: htn -: cva -: copd -: COPD -: BREAST AND CERVICAL CA -: ANEMIA -: DEPRESSION/ANXIETY -: HEADACHES -: Bladder Suspension sx 4 -: Left Ankle Surgery -: Stomach surgery (ureter sx) -: Breast biopsy -: appy -: hysterectomy Psychosocial/ Personal History: Patient lives at home alone. - Family History Father -: Hypertension, Stroke Mother -: Hypertension, Diabetes - Social History Smoking Status: Never smoker Alcohol use: No CD- Drugs: No Caffeine use: Yes Place of Residence: Home Review of Systems 10-point ROS is otherwise unremarkable Physical Examination - Vital Signs Temperature: 98.4 F Blood Pressure: 97/47 Pulse: 69 Respirations: 16 Pulse Ox (%): 94 - Physical Exam General: Oriented x3, Mild distress, Other (weak) HEENT: Atraumatic, PERRLA, Mucous membr. moist/pink, EOMI, Sclerae nonicteric Neck: Supple, 2+ carotid pulse no bruit, No LAD, Without JVD or thyroid abnormality Respiratory: Clear to auscultation bilaterally, Normal air movement Cardiovascular: Regular rate/rhythm, Normal S1 S2 Gastrointestinal: Normal bowel sounds, No tenderness Musculoskeletal: No tenderness Integumentary: No rashes Neurological: Normal gait, Normal speech, Normal strength at 5/5 x4 extr, Normal tone, Normal affect Lymphatics: No axilla or inguinal lymphadenopathy Other Physical/Emotional Findings: NIK minimal - Studies Laboratory Data (last 24 hrs) 09/04/23 09/04/23 07:00 07:00 WBC 12.60 H Hgb 10.1 L D Hct 33.3 L Plt Count 317 Sodium 139 Potassium 4.5 D BUN 19 H Creatinine 1.19 H Glucose 204 H Assessment and Plan - Problems (Diagnosis) (1) History of modified radical mastectomy Current Visit: Yes Status: Acute Plan: she is weak wants to go to [place] SW is aware and referral made Qualifiers: Laterality: right Qualified Code(s): Z90.11 - Acquired absence of right breast and nipple (2) Diabetic peripheral neuropathy Current Visit: No Status: Acute (3) Diabetes mellitus type 2 Current Visit: No Status: Chronic - Advance Directives Does patient have a Living Will: No Does patient have a Durable POA for Healthcare: No
--- NOTE | 2023-09-05 12:37 | RAD REPORT ---
EXAM DESCRIPTION: MRI - Brain Wo Cont - 09/05/2023 11:26 am CLINICAL HISTORY: ams COMPARISON: 05/14/2019 MRI brain. 10/23/[address] TECHNIQUE: Multiplanar multisequence MRI of the brain performed without IV contrast. FINDINGS: Motion artifact somewhat limits evaluation, despite attempts at repeat imaging. No evidence of acute infarct or other diffusion signal abnormality. No evidence of acute intracranial hemorrhage or abnormal extra-axial fluid collections. Ventricular caliber within normal for age. Midline structures are unremarkable. Stable scattered periventricular and deep white matter T2/FLAIR hyperintensities, nonspecific, but licea ggestive of chronic small vessel ischemic changes. No mass effect or midline shift. Major vascular flow voids are preserved. Mastoid air cells and paranasal sinuses are clear. IMPRESSION: No acute intracranial process. No evidence of ventriculomegaly or mass effect. Stable mild deep white matter T2 hyperintensities, nonspecific, but most suggestive chronic small ves josé luis ischemic changes.
[2023-09-05] MEDS: NA CHLORIDE 0.9% 1,000 ML IV SCH (15:54)
--- NOTE | 2023-09-05 15:59 | P.PN ---
Subjective Date of Service: 09/05/23 Chief Complaint: medical mx Subjective: Improving EVERYTIME SHE COMES TO HOSPITAL SHE GOES THROUGH SAME ROUTINE. SHE DOES NOT WALK MUCH, SHE DOES NOT DO PT AND SHE ASKED FOR SNF ADMISSION. Review of Systems 10-point ROS is otherwise unremarkable Physical Examination - Vital Signs Temperature: 97.6 F Blood Pressure: 119/54 Pulse: 89 Respirations: 12 Pulse Ox (%): 95 - Physical Exam General: Alert, In no apparent distress HEENT: Atraumatic, PERRLA, EOMI Neck: Supple, JVD not distended Respiratory: Clear to auscultation bilaterally, Normal air movement Cardiovascular: Regular rate/rhythm, Normal S1 S2 Gastrointestinal: Normal bowel sounds, No tenderness Musculoskeletal: No tenderness Integumentary: No rashes Neurological: Normal speech, Normal tone, Normal affect Lymphatics: No axilla or inguinal lymphadenopathy Other Physical/Emotional Findings: NIK minimal - Studies Medications List Reviewed: Yes Assessment And Plan - Current Problems (Diagnosis) (1) History of modified radical mastectomy Current Visit: Yes Status: Acute Plan: she is weak wants to go to [place] SW is aware and referral made [facility] ADVISED SHE WALKED INTO DR. BAUER OFFICE AND MY OFFICE BUT USUAL AFTER ADMISSION SHE NOW DOES NOTDO PT. Qualifiers: Laterality: right Qualified Code(s): Z90.11 - Acquired absence of right breast and nipple (2) Diabetic peripheral neuropathy Current Visit: No Status: Acute (3) Diabetes mellitus type 2 Current Visit: No Status: Chronic
--- NOTE | 2023-09-05 17:57 | PN ---
Date of Progress Note: 09/05/2023 Diagnosis: Right breast cancer, status post modified radical mastectomy. Ms. Ortega is a 78-year-old patient who underwent modified radical mastectomy, everything successful. Incision looks good. NIK drainage is minimal, but I discussed the case with the primary doctor. The son stated that it is difficult for her to just take care of her because she liked to go to the [facility] floor. She is always weak, and we have an issue with disposition. From the surgical standpoint, she is clear to go but I discussed the case with the primary doctor too and just send her back after any admission has been a challenge in the past. They expect the same at this moment and so a SNF was requested by the primary doctor. In the meantime, incision looks good. We are going to try to then see what the aids social worker can help us with for a safe disposition. Continue diet and ambulation. VAISHNAVI/MODL Voice ID: [id number] Report ID: [id number]
[2023-09-05] MEDS: TRAMADOL HCL 50 MG TAB PO PRN (19:19)
--- NOTE | 2023-09-06 01:24 | OP ---
Surgeon: Pk Blas MD Preoperative Diagnosis: Right breast recurrent invasive ductal carcinoma. Postoperative Diagnosis: Right breast recurrent invasive ductal carcinoma. Procedure: Right modified radical mastectomy. Estimated Blood Loss: Less than 75 cc. Specimens: Breast with axillary tissue. Findings: As above. Anesthesia: General plus local. Complications: None. Drains: NIK #10. Indication: This is a case of a female who about 20 years ago received lumpectomy and sentinel lymph node; that is what we can get from the limited amount of data that we have, but then they found to h ave recurrent breast cancer, so we discussed the case with the oncologist and the patient few months just for her to make a final decision since she had some different personal issues that de layed this, and also the issue of the cardiac clearance. All that is done. She has always had some weakness on and off. We discussed also the case with the primary doctor breast cancer, we have to proceed accordingly. After discussion of pros and cons of surgery, she has elected right mo dified radical mastectomy as her treatment with benefits, alternatives, and risks including, but not limited to, infection, bleeding, damage to adjacent structures, anesthesia complication, recurrence, MO, and even . She also understands the chances of seromas, nerve injuries, lymphedema. She si gned a consent. Procedure In Detail: The patient was brought to the operating room, placed in supine position. Anes thesia was done without complication. The right chest was prepped and draped in a sterile fashion. Time-out was called. A skin incision was made to encompass the nipple-areolar complex, and we went i n a transverse fashion. After that, we put towel clips in the edges and we proceeded to raise the fl aps in the avascular plane between the subcutaneous tissue and the breast tissue up to the clavicle s uperiorly, the sternum medially, anterior rectus sheath inferiorly, and anterior border of latissimus dorsi laterally. After that, we proceeded to remove the breast tissue and underlying pectoralis fas elana progressing from medial to lateral. At the lateral border of pectoralis muscle, the breast tissu e was removed laterally and then dissection progressed under the muscle. The clavipectoral fascia wa s then incised next to the pectoralis major and then we proceeded to free the surrounding tissue, inc luding the lymph nodes. The dissection continued on the pectoralis major and minor. Neurovascular b undle was identified and preserved. Level 2 lymph node area was also dissected. The veins were iden tified properly and preserved. The first branch of axillary veins was also ligated. Thoracodorsal n erve and long thoracic nerves were also identified and preserved. The specimen was sent with the nod al tissue and the breast. There was some scar tissue from previous surgeries in that region. At marta t moment, once we had the specimen out, we marked for orientation and after that I irrigated the pect oralis area and the flaps. After that, we proceeded to put 2 NIK drains in the region through a diffe rent incision site and securing that in place with 3-0 nylon. After that, we proceeded then to appro ximate the subcutaneous tissue with 3-0 chromic interrupted and then we used micah for the skin. S kin flaps looked intact with no cyanosis. Sponge count and instrument counts correct. The area was covered with sterile dressings, and the patient was sent to recovery in stable condition. The patien joanne lives alone. She has a son, but she is not that depending on him. We are going to discuss that wi th Dr. Franco what options we have. I do not think she can go home today. She needs a lot of help to move around and then hopefully when she goes to the floor, we can have options from the medical social worker to see how we can eventually discharge her safe. VAISHNAVI/VIJAY Voice ID: [id number] Report ID: [id number]
--- NOTE | 2023-09-06 11:29 | P.PN ---
Subjective Date of Service: 09/06/23 Chief Complaint: breast cncer, s/p MRM, weakness Subjective: Tolerating diet, Ambulating, Improving Review of Systems General: Fever (no), Chills (no), Weakness ENT: Unremarkable Respiratory: Unremarkable Cardiovascular: Unremarkable Gastrointestinal: Unremarkable Genitourinary: Unremarkable Neurological: Weakness Physical Examination - Vital Signs Temperature: 97.7 F Blood Pressure: 148/65 Pulse: 97 Respirations: 20 Pulse Ox (%): 97 - Physical Exam General: Alert, In no apparent distress HEENT: PERRLA, EOMI Neck: Supple Respiratory: Normal air movement Cardiovascular: Normal pulses Gastrointestinal: Soft and benign Musculoskeletal: No erythema, No tenderness, No warmth Integumentary: No rashes, No breakdown, No significant lesion, No erythema, No warmth, No cyanosis Neurological: Normal speech Other Physical/Emotional Findings: NIK minimal - Studies Medications List Reviewed: Yes Assessment And Plan - Plan s/o modified radical mastestomy for breast cancer Pt still feeling week. She want to go to long-term not home. That being informed by primary MD to social worker aide and waiting for insurance approval. [place] [facility] [place] [facility] [place]
--- NOTE | 2023-09-06 13:50 | P.PN ---
Subjective Date of Service: 09/06/23 Chief Complaint: weakness EVERYTIME SHE COMES TO HOSPITAL SHE GOES THROUGH SAME ROUTINE. SHE DOES NOT WALK MUCH, SHE DOES NOT DO PT AND SHE ASKED FOR SNF ADMISSION. PER THERAPIST SHE DOES NOT WALK. SHE TOOK ONE OR TWO SIDE STEPS BUT THEN TENDS TO FALL BACKWARDS. Review of Systems 10-point ROS is otherwise unremarkable General: Weakness Physical Examination - Vital Signs Temperature: 98.8 F Blood Pressure: 150/68 Pulse: 83 Respirations: 20 Pulse Ox (%): 98 - Physical Exam General: Alert, In no apparent distress HEENT: Atraumatic, PERRLA, EOMI Neck: Supple, JVD not distended Respiratory: Clear to auscultation bilaterally, Normal air movement Cardiovascular: Regular rate/rhythm, Normal S1 S2 Gastrointestinal: Normal bowel sounds, No tenderness Musculoskeletal: No tenderness Integumentary: No rashes Neurological: Normal speech (SLOW, FULLY AWAKE.), Other (ORIENTED TO PERSON BUT NOT TIME, PLACE.) Lymphatics: No axilla or inguinal lymphadenopathy Other Physical/Emotional Findings: NIK minimal - Studies Medications List Reviewed: Yes Assessment And Plan - Current Problems (Diagnosis) (1) History of modified radical mastectomy Current Visit: Yes Status: Acute Plan: she is weak wants to go to [place] SW is aware and referral made [facility] ADVISED SHE WALKED INTO DR. BAUER OFFICE AND MY OFFICE BUT USUAL AFTER ADMISSION SHE NOW DOES NOTDO PT. Qualifiers: Laterality: right Qualified Code(s): Z90.11 - Acquired absence of right breast and nipple (2) Diabetic peripheral neuropathy Current Visit: No Status: Acute (3) Diabetes mellitus type 2 Current Visit: No Status: Chronic (4) Anoxic encephalopathy Current Visit: Yes Status: Acute Plan: EVERY TIME AFTER ANESTHESIA, SHE DECLINES LIKE THIS. THIS MAY BE FROM ANESTHSIA EFFECT SHE IS NOT SAFE TO GO HOME PER THERAPIST. SHE IS NOT WALKING AND SHE SHOULD BE BEFORE SHE GOES HOME.
[2023-09-06 15:28] LABS: Absolute Basophils 0.1 K/uL (0-0.5); Absolute Eosinophils 0.1 K/uL (0-0.5); Absolute Lymphocytes (CBC) 1.4 K/uL (0.7-4.9); Absolute Monocytes 1.3 K/uL (0.1-1.3); Basophils % 0.6 % (0-1.3); Eosinophils % 0.5 % (0-4.4); Hemoglobin 9.4 g/dL (12.0-15.0); Lymphocytes % 11.5 % (15.3-44.8); MCH 24.1 pg (27.0-35.0); MCHC 31.2 g/dL (32.0-36.0); MCV 77.2 fL (80-100); MPV 7.8 fL (7.6-11.3); Monocytes % 11.3 % (3.3-12.3); Neutrophils % 76.1 % (41.7-73.7); Platelets 263 thou/uL (152-406); RBC Red Blood Cell Count 3.88 M/uL (3.86-4.86); Red Cell Distribution Width 20.1 % (12.1-15.2)
[2023-09-06 15:42] LABS: Anion Gap 13.6 mEq/L (5.0-15.0); Potassium 4.6 mEq/L (3.5-5.1)
[2023-09-06 18:36] LABS: Anisocytosis 1+; Blood Morphology Comment NOTED (NOT SEEN); Platelet Estimate ADEQ; Poikilocytosis 1+; White Blood Cell Scan OK (OK)
[2023-09-06] MEDS: CYANOCOBALAMIN 1000MCG/ML INJ IM ONE (22:16)
[2023-09-07] MEDS: VITAMIN D 5,000 UNIT CAP PO SCH (08:45)
[2023-09-07 09:14] VITALS: O2SAT 98
--- NOTE | 2023-09-07 13:05 | PN ---
Date of Progress Note: 09/07/2023 Diagnosis: Breast cancer, status post modified radical mastectomy. Subjective: She is doing great from the cancer standpoint. The flaps were intact. NIK minimal. Ful l range of motion of the arms. No swelling. She is still feeling weak. I discussed the case with joanne james primary doctor. This is a very common finding when she gets admitted to the hospital and we have been looking for any other etiology of that. Objective: General: She is awake and alert and oriented x3. Chest: Clear. Heart: S1, S2. Abdomen: Soft and depressible. Extremities: Good capillary refill. No calf tenderness. Neuro: Cranial nerves 2 through 12 are grossly normal limits. Plan: The primary doctor already put in order for SNF or equivalent outpatient treatment. She lives alone, basically has a son there, but he is not there all the time for her and I believe she is look ing for social issue help and we are going to do what we can at this moment to make sure it is a safe discharge. Blood work is stable at this moment. We will see what the delinquency prevention social worker say tomorrow. She is cleared from the surgical standpoint. We are awaiting for the social issues and medical issue s to resolve. VAISHNAVI/VIJAY Voice ID: [id number] Report ID: [id number]
--- NOTE | 2023-09-07 21:57 | P.PN ---
Subjective Date of Service: 09/07/23 Chief Complaint: weakness Subjective: Improving EVERYTIME SHE COMES TO HOSPITAL SHE GOES THROUGH SAME ROUTINE. SHE DOES NOT WALK MUCH, SHE DOES NOT DO PT AND SHE ASKED FOR SNF ADMISSION. PER THERAPIST SHE DOES NOT WALK. SHE TOOK ONE OR TWO SIDE STEPS BUT THEN TENDS TO FALL BACKWARDS. NO ACUTE SS. NOT DOING MUCH FOR PT. Review of Systems 10-point ROS is otherwise unremarkable Physical Examination - Vital Signs Temperature: 97.9 F Blood Pressure: 180/76 Pulse: 75 Respirations: 16 Pulse Ox (%): 97 - Physical Exam General: In no apparent distress, Oriented x3 HEENT: Atraumatic, PERRLA, EOMI Neck: Supple, JVD not distended Respiratory: Clear to auscultation bilaterally, Normal air movement Cardiovascular: Regular rate/rhythm, Normal S1 S2 Gastrointestinal: Normal bowel sounds, No tenderness Musculoskeletal: No tenderness Integumentary: No rashes Neurological: Normal speech, Normal tone, Normal affect Lymphatics: No axilla or inguinal lymphadenopathy Other Physical/Emotional Findings: NIK minimal - Studies Medications List Reviewed: Yes Assessment And Plan - Current Problems (Diagnosis) (1) History of modified radical mastectomy Current Visit: Yes Status: Acute Plan: she is weak wants to go to [place] SW is aware and referral made [facility] ADVISED SHE WALKED INTO DR. BAUER OFFICE AND MY OFFICE BUT USUAL AFTER ADMISSION SHE NOW DOES NOTDO PT. Qualifiers: Laterality: right Qualified Code(s): Z90.11 - Acquired absence of right breast and nipple (2) Diabetic peripheral neuropathy Current Visit: No Status: Acute (3) Diabetes mellitus type 2 Current Visit: No Status: Chronic (4) Anoxic encephalopathy Current Visit: Yes Status: Acute Plan: EVERY TIME AFTER ANESTHESIA, SHE DECLINES LIKE THIS. THIS MAY BE FROM ANESTHSIA EFFECT SHE IS NOT SAFE TO GO HOME PER THERAPIST. SHE IS NOT WALKING AND SHE SHOULD BE BEFORE SHE GOES HOME. (5) Vitamin D deficiency Current Visit: Yes Status: Acute Plan: LAB DONE AT OFFICE SHOWS THIS VERY LOW NUMBER I WILL START AT 5000 UNITS DAILY.
[2023-09-08] MEDS: METOPROLOL TAR 50 MG TAB PO SCH (08:40)
[2023-09-08] MEDS: AMLODIPINE 5 MG TAB PO SCH (08:41)
[2023-09-08 12:08] VITALS: BMI 36.0
[2023-09-08 12:36] VITALS: BP 146/67; TEMP 98.3
== END 2023-09-08 16:03 | DRG 582 ==
LOC: OR 06:08 → 2ND 11:01 → OBSVTOIN 09-05 15:59 → 2ND 09-08 10:29
PROVIDERS: ADMIT Surgery; ATTEND Internal Medicine
PROC: 0HTT0ZZ Resection of Right Breast, Open Approach (ICD-10-PCS; principal; 2023-09-05)
DX: D05.11 Intraductal carcinoma in situ of right breast (principal); G93.1 Anoxic brain damage, not elsewhere classified; J44.9 Chronic obstructive pulmonary disease, unspecified; E11.42 Type 2 diabetes mellitus with diabetic polyneuropathy; I10 Essential (primary) hypertension; E55.9 Vitamin D deficiency, unspecified; T88.59XA Other complications of anesthesia, initial encounter; Y83.8 Other surgical procedures as the cause of abnormal reaction of the patient, or of later complication, without mention of misadventure at the time of the procedure; Z60.2 Problems related to living alone; Z79.4 Long term (current) use of insulin; Z88.8 Allergy status to other drugs, medicaments and biological substances; Z90.11 Acquired absence of right breast and nipple; Z79.01 Long term (current) use of anticoagulants; Z90.49 Acquired absence of other specified parts of digestive tract; Z86.73 Personal history of transient ischemic attack (TIA), and cerebral infarction without residual deficits; Z91.041 Radiographic dye allergy status; Z79.899 Other long term (current) drug therapy; Z90.710 Acquired absence of both cervix and uterus
CPT/HCPCS: 36415; 70551; 71046; 80048; 82947; 85025; 88309; 88311; 93005; 94010; 97110; 97116; 97161; 97530; G0378; G0379; J0171; J0690; J0694; J1100; J1170; J2001; J2405; J2704; J2710; J3010; J3420; J7030; J7040; Q0162

== ENCOUNTER 2023-11-05 12:25 | Inpatient (IN) | payer OTHER ==
[2023-11-05] MEDS ORDERED: ONDANSETRON 4 MG/2 ML VIAL ONE (13:07)
[2023-11-05] MEDS ORDERED: MORPHINE 4 MG/ML SYR ONE (13:08)
[2023-11-05 13:45] LABS: PT Prothrombin Time 16.8 SECONDS (9.4-12.5); PTT, Activated Partial Thromb 44.2 SECONDS (24.3-36.9); Protime INR 1.52
--- NOTE | 2023-11-05 13:49 | RAD REPORT ---
EXAM: CT brain without contrast HISTORY: TRAUMA COMPARISON: 10/24/2023 TECHNIQUE: Multiple contiguous axial images were obtained and a CT of the brain without contrast. Sag ittal and coronal reformats were performed. FINDINGS:No evidence of hydrocephalus, intracranial hemorrhage, or extra-axial fluid collection. The brain is normal in morphology. The calvarium is intact. The visualized paranasal sinuses and mastoid air cells are essentially clear . IMPRESSION: No evidence of acute intracranial abnormality. EXAM: CT of the cervical spine without contrast HISTORY: TRAUMA COMPARISON: 10/24/2023 TECHNIQUE: Multiple contiguous axial images were obtained in a CT of the cervical spine without contr ast. Sagittal and coronal reformats were performed. FINDINGS: The vertebral bodies demonstrate normal height and alignment. No evidence of acute fracture or subluxation.. [id number]-[id number] degenerative changes, with approximately neural foraminal narrowing most pronounced on the left at C4-5. No prevertebral soft tissue swelling is seen. The posterior facets are well aligned. Normal alignment of the skull base with the cervical spine is seen. The lung apices are unremarkable. IMPRESSION: No evidence of acute osseous abnormality of the cervical spine. Cervical spine degenerative changes as above.
[2023-11-05 13:50] LABS: Anion Gap 8.1 mEq/L (5.0-15.0); Potassium 4.1 mEq/L (3.5-5.1)
--- NOTE | 2023-11-05 13:50 | RAD REPORT ---
EXAM: Humerus Right HISTORY: [facility] MAIN Pain;Swelling Bed Name: 17 COMPARISON: None TECHNIQUE: 2 radiographic views of the right humerus. FINDINGS: Oblique fracture of the proximal right humeral shaft with mild displacement, with the dista l fragment demonstrating posterolateral offset by approximately 1 cm. Moderate AC degenerative changes. Joint alignment is maintained. Soft tissue swelling about the upper arm. IMPRESSION: Oblique proximal right humeral shaft fracture as above.
[2023-11-05 13:53] LABS: Absolute Basophils 0.1 K/uL (0-0.5); Absolute Eosinophils 0.2 K/uL (0-0.5); Absolute Lymphocytes (CBC) 2.7 K/uL (0.7-4.9); Absolute Monocytes 1.1 K/uL (0.1-1.3); Absolute Neutrophil 7.6 K/uL (1.8-8.0); Basophils % 0.7 % (0-1.3); Eosinophils % 1.7 % (0-4.4); Hematocrit 33.6 % (36.0-45.0); Hemoglobin 10.1 g/dL (12.0-15.0); Lymphocytes % 22.9 % (15.3-44.8); MCH 22.2 pg (27.0-35.0); MPV 8.5 fL (7.6-11.3); Monocytes % 9.2 % (3.3-12.3); Neutrophils % 65.5 % (41.7-73.7); Nucleated Red Blood Cells % 0.1 % (0-0); Platelets 319 thou/uL (152-406); RBC Red Blood Cell Count 4.53 M/uL (3.86-4.86)
--- NOTE | 2023-11-05 14:04 | RAD REPORT ---
EXAMINATION: Elbow Right 3 View CLINICAL INDICATION: Female, 78 years old. Pain;Swelling RIGHT TECHNIQUE: 3 view radiographs of the right elbow were obtained. COMPARISON: No prior exam. FINDINGS: No evidence of fracture or dislocation. Normal alignment. No joint effusion. No evidence of arthropathy. No suspicious focal bone lesion. Soft tissues are unremarkable. IMPRESSION: No acute or significant abnormalities.
--- NOTE | 2023-11-05 15:42 | EDPHYS ---
Physician Documentation [facility] Name: Kiley Ortega Age: 78 yrs Sex: Female : 1945 Arrival Date: 11/05/2023 Time: 12:25 Bed 17 Private MD: ED Physician Belkis Michelle HPI: 11/04 14:07 This 78 yrs old Female presents to ER via EMS with complaints of Fall Injury. sd2 14:07 78 yo F presents via EMS with CC of mechanical fall at home. Reports hitting her head sd2 on the dresser. No LOC. Also on Eliquis. Recent mastectomy for which she had wound vac removed earlier today at doctor's office. Reports another fall this past Friday and has had right elbow pain since then. Right humeral area now hurting today since the second fall. Denies any other complaints at this time. . Historical: - Allergies: 12:30 Iodinated Contrast Media - IV Dye; iw 12:30 Tegretol; iw 12:30 trelegy; iw - PMHx: 12:30 cervical cancer; breast cancer-right side; COPD; Diabetes - NIDDM; Hypertension; Kidney iw stone; Myopathy; neuropathy; TIA; - PSHx: 12:30 Total abdominal hysterectomy; mastectomy right; iw - Immunization history:: Adult Immunizations up to date. - Infectious Disease History:: Denies. - Social history:: Smoking status: unknown. ROS: 14:07 Constitutional: Negative for fever, chills, and weight loss, Eyes: Negative for injury, sd2 pain, redness, and discharge, Neck: Negative for injury, pain, and swelling, Cardiovascular: Negative for chest pain, palpitations, and edema, Respiratory: Negative for shortness of breath, cough, wheezing. Abdomen/GI: Negative for abdominal pain, nausea, vomiting, diarrhea. Back: Negative for injury and pain, 14:07 Skin: Negative for injury, rash, and discoloration, 14:07 MS/extremity: Positive for injury or acute deformity, pain, swelling, 14:07 Neuro: Positive for headache, Negative for loss of consciousness, sd2 Exam: 14:07 Constitutional: This is a well developed, well nourished patient who is awake, alert, sd2 and in no acute distress. Head/Face: Normocephalic, atraumatic. Eyes: EOMI, normal conjunctiva bilaterally Neck: Trachea midline, no thyromegaly or masses palpated, and no cervical lymphadenopathy. Supple, full range of motion without nuchal rigidity, or vertebral point tenderness. No Meningismus. Chest/axilla: Normal chest wall appearance and motion. Nontender with no deformity. Bandage noted to R chest wall at area of prior wound vac. Cardiovascular: Regular rate and rhythm with a normal S1 and S2. No gallops, murmurs, or rubs. 2+ distal pulses. Respiratory: Lungs have equal breath sounds bilaterally, clear to auscultation and percussion. No rales, rhonchi or wheezes noted. No increased work of breathing, no retractions or nasal flaring. Abdomen/GI: Soft, non-tender, with normal bowel sounds. No guarding or rebound. No evidence of tenderness throughout. Back: No spinal tenderness. No costovertebral tenderness. Full range of motion. Skin: Warm, dry with normal turgor. Normal color with no rashes, no lesions, and no evidence of cellulitis. MS/ Extremity: Pulses equal, no cyanosis. Neurovascular intact. Swelling and deformity noted to R humeral area. TTP of R elbow. Neuro: Awake and alert, GCS 15, oriented to person, place, time, and situation. Cranial nerves II-XII grossly intact. Motor strength 5/5 in all extremities. Sensory grossly intact. Psych: Awake, alert, with orientation to person, place and time. Behavior, mood, and affect are within normal limits. Vital Signs: 12:32 BP 135 / 41; Pulse 77; Resp 15; Temp 97.3(IR); Pulse Ox 96% on R/A; Weight 84.82 kg; cm10 Height 5 ft. 2 in. ; Pain 10/10; 16:30 BP 118 / 46; Pulse 78; Resp 16; Pulse Ox 95% ; cm10 18:33 BP 120 / 51; Pulse 77; Resp 16; Pulse Ox 98% on R/A; cm10 12:32 Body Mass Index 34.20 (84.82 kg, 157.48 cm) cm10 12:32 Pain Scale: Adult cm10 MDM: 12:32 Patient medically screened. sd2 14:07 Differential diagnosis: abrasion, closed head injury, contusion, fracture, multiple sd2 trauma, sprain, strain, among others. Data reviewed: vital signs, nurses notes, EMS record, lab test result(s), radiologic studies. I considered the following discharge prescriptions or medication management in the emergency department Medications were administered in the Emergency Department. See MAR. Historians other than the Patient: EMS: provides initial report. Care significantly affected by the following chronic conditions: Diabetes, Hypertension, Chronic Obstructive Pulmonary Disease, Cancer. 14:19 Counseling: I had a detailed discussion with the patient and/or guardian regarding the sd2 historical points, exam findings, and any diagnostic results supporting the discharge/admit diagnosis, lab results, radiology results, the need for outpatient follow up, to return to the emergency department if symptoms worsen or persist or if there are any questions or concerns that arise at home. ED course: Pt advised of results and need for immobilization of humerus fracture. Pt to follow up outpatient with Orthopedics and will prescribe pain medication for home as needed. Pt verbalizes understanding of discharge plan and strict return precautions. . 16:42 ED course: Pt unable to go home due to need for use of walker which she is unable to do sd2 with her humerus fracture and home not wheelchair accessible. High fall risk. Pt will need inpatient rehab. Discussed case with Mariya, Case Management, who is assisting to get the patient to rehab. Awaiting callback. . 17:08 Management of patient was discussed with the following: Hospitalist: Dr. Franco for sd2 admission. 11/04 12:33 Order name: CBC with Diff; Complete Time: 14:11 sd2 11/04 12:33 Order name: BMP; Complete Time: 14:11 sd2 11/04 12:33 Order name: PT-INR; Complete Time: 14:11 sd2 11/04 13:33 Order name: PTT, Activated Partial Thromb; Complete Time: 14:11 EDMS 11/04 17:15 Order name: Basic Metabolic Panel EDLA 11/04 17:15 Order name: Basic Metabolic Panel EDMS 11/04 17:15 Order name: CBC with Automated Diff EDMS 11/04 17:15 Order name: CBC with Automated Diff EDMS 11/04 17:19 Order name: Urinalysis w/ reflexes EDLA 11/04 12:33 Order name: CT Head C Spine; Complete Time: 14:11 sd2 11/04 12:33 Order name: XRAY Humerus RIGHT; Complete Time: 14:11 sd2 11/04 12:33 Order name: XRAY Elbow RIGHT 3 view; Complete Time: 14:11 sd2 11/04 14:12 Order name: Slporter; Complete Time: 16:22 sd2 Administered Medications: 13:24 Drug: morphine IVP or IV 4 mg IVP once over 4 mins Route: IVP; Infused Over: 4 mins; cm10 Site: left hand; 14:00 Follow up: Response: No adverse reaction cm10 13:24 Drug: Ondansetron IVP 4 mg IVP once; over 2 minutes Route: IVP; Site: left hand; cm10 14:00 Follow up: Response: No adverse reaction cm10 Disposition Summary: 11/05/23 17:09 Hospitalization Ordered Notes: Hospitalization Status: Observation sd2 Provider: Jesus Franco2 Location: Telemetry/MedSurg (observation)(11/05/23 17:09) sd2 Condition: Stable(11/05/23 17:09) sd2 Problem: new(11/05/23 17:09) sd2 Symptoms: have improved(11/05/23 17:09) sd2 Bed/Room Type: Standard sd2 Room Assignment: 215(11/05/23 17:43) kb3 Diagnosis - Closed right humerus fracture sd2 - Fall on same level, unspecified(11/05/23 17:09) sd2 - Unspecified injury of head, initial encounter sd2 Forms: - Medication Reconciliation Form sd2 - SBAR form sd2 - Leadership Thank You Letter sd2 Signatures: Dispatcher [employer] EDMS Ivis Johnson, YUNIOR MOJICA iw Belkis Michelle MD MD sd2 Britt Gould RN RN kb3 Kristin Blas RN RN cm10 Corrections: (The following items were deleted from the chart) 12:34 12:34 CBC+H.LAB.BRZ ordered. EDMS EDMS 12:34 12:34 BASIC METABOLIC PANEL+C.LAB.BRZ ordered. EDMS EDMS 12:34 12:34 PROTIME (+INR)+COAG.LAB.BRZ ordered. EDMS EDMS 12:34 12:34 Elbow Right 3 View+RAD.RAD.BRZ ordered. EDMS EDMS 13:32 12:34 PTT, ACTIVATED+COAG.LAB.BRZ ordered. EDMS EDMS 15:44 15:42 Home sd2 sd2 15:44 15:42 new sd2 sd2 15:44 15:42 have improved sd2 sd2 15:44 15:42 Stable sd2 sd2 15:44 15:42 Fall on same level, unspecified sd2 sd2 15: 15:42 Closed right humerus fracture sd2 sd2 15:44 15:42 Closed head injury sd2 sd2 17:43 17:09 sd2 kb3
--- NOTE | 2023-11-05 15:42 | ER ---
Nurse's Notes [facility] Name: Kiley Ortega Age: 78 yrs Sex: Female : 1945 Arrival Date: 11/05/2023 Time: 12:25 Bed 17 Private MD: Diagnosis: Closed right humerus fracture;Fall on same level, unspecified;Unspecified injury of head, initial encounter Presentation: 11/04 12:28 Chief complaint: EMS states: unwitnessed mechanical fall, found between the dresser and iw bed, states she hit her head no LOC, on Eliquis, has pain, swelling, bruising to right shoulder and elbow . Pt had a fall two days ago and injured her right elbow. 12:28 Acuity: SHELLEY 3 iw 12:29 Coronavirus screen: At this time, the client does not indicate any symptoms associated iw with coronavirus-19. Ebola Screen: No symptoms or risks identified at this time. Initial Sepsis Screen: Does the patient meet any 2 criteria? No. Patient's initial sepsis screen is negative. Does the patient have a suspected source of infection? No. Patient's initial sepsis screen is negative. Risk Assessment: Do you want to hurt yourself or someone else? Patient reports no desire to harm self or others. Onset of symptoms was November 05, 2023. 12:29 Method Of Arrival: EMS: [facility] iw 12:30 Care prior to arrival: Medication(s) given: 100 mcg fentanyl IN. Mechanism of Injury: iw Fall. Transition of care: patient was not received from another setting of care. 12:32 Care prior to arrival: Splint applied. iw Triage Assessment: 12:32 General: Appears in no apparent distress. uncomfortable, Behavior is calm, cooperative. cm10 12:33 Pain: Complains of pain in right arm. Neuro: No deficits noted. Level of Consciousness cm10 is awake, alert, obeys commands, Oriented to person, place, time, situation, Appropriate for age. Respiratory: No deficits noted. Airway is patent Respiratory effort is even, unlabored, Respiratory pattern is regular, symmetrical. Musculoskeletal: splint noted to right arm Reports pain in right arm. Historical: - Allergies: 12:30 Iodinated Contrast Media - IV Dye; iw 12:30 Tegretol; iw 12:30 trelegy; iw - PMHx: 12:30 cervical cancer; breast cancer-right side; COPD; Diabetes - NIDDM; Hypertension; Kidney iw stone; Myopathy; neuropathy; TIA; - PSHx: 12:30 Total abdominal hysterectomy; mastectomy right; iw - Immunization history:: Adult Immunizations up to date. - Infectious Disease History:: Denies. - Social history:: Smoking status: unknown. Screenin:45 [facility] ED Fall Risk Assessment (Adult) History of falling in the last 3 months, cm10 including since admission Yes- fall prone (multiple falls) (3 pts) Confusion or Disorientation No (0 pts) Intoxicated or Sedated No (0 pts) Impaired Gait Yes (1 pt) Mobility Assist Device Used Yes (1 pt) Altered Elimination No (0 pt) Score/Fall Risk Level 3 or more points = High Risk Oriented to surroundings, Maintained a safe environment, Hourly rounding (assess needs \T\ fall precautionary measures) done. Abuse screen: Denies threats or abuse. Denies injuries from another. Nutritional screening: No deficits noted. Tuberculosis screening: No symptoms or risk factors identified. Assessment: 13:39 Reassessment: Patient appears in no apparent distress at this time. No changes from cm10 previously documented assessment. Patient and/or family updated on plan of care and expected duration. Pain level reassessed. Patient is alert, oriented x 3, equal unlabored respirations, skin warm/dry/pink. 16:31 Reassessment: Patient appears in no apparent distress at this time. No changes from cm10 previously documented assessment. Patient and/or family updated on plan of care and expected duration. Pain level reassessed. Patient is alert, oriented x 3, equal unlabored respirations, skin warm/dry/pink. Pt complaining of pain, provider made aware. 18:32 Reassessment: Pt states that she will change into a gown when she gets upstairs. cm10 19:00 Reassessment: Pt changed into gown prior to going up stairs. Pt's brief changed 3 times cm10 prior to going up stairs and patient continues to urinate. Vital Signs: 12:32 BP 135 / 41; Pulse 77; Resp 15; Temp 97.3(IR); Pulse Ox 96% on R/A; Weight 84.82 kg; cm10 Height 5 ft. 2 in. ; Pain 10/10; 16:30 BP 118 / 46; Pulse 78; Resp 16; Pulse Ox 95% ; cm10 18:33 BP 120 / 51; Pulse 77; Resp 16; Pulse Ox 98% on R/A; cm10 12:32 Body Mass Index 34.20 (84.82 kg, 157.48 cm) cm10 12:32 Pain Scale: Adult cm10 ED Course: 12:28 Patient arrived in ED. iw 12:29 Triage completed. iw 12:31 Arm band placed on. iw 12:32 Kristin Blas, RN is Primary Nurse. cm10 12:32 Belkis Michelle MD is Attending Physician. sd2 12:[address] via stretcher. cm10 12:42 CT Head C Spine In Process Unspecified. EDMS 13:19 XRAY Humerus RIGHT In Process Unspecified. EDMS 13:19 XRAY Elbow RIGHT 3 view In Process Unspecified. EDMS 13:24 Patient has correct armband on for positive identification. Bed in low position. Call cm10 light in reach. Side rails up X2. Pulse ox on. NIBP on. 13:24 PT-INR Sent. cm10 13:24 BMP Sent. cm10 13:24 CBC with Diff Sent. cm10 13:24 Initial lab(s) drawn, by me, sent to lab. Inserted saline lock: 22 gauge in left hand, cm10 using aseptic technique. Blood collected. Flushed with 10 mL NS. 15:41 Jesus Alberto Cnuha MD is Referral Physician. sd2 16:22 Sling applied to right arm. cm10 17:08 Jesus Franco MD is Hospitalizing Provider. sd2 18:20 Report faxed at [phone]. Called twice to confirm fax was received with no answer. cm10 18:33 No provider procedures requiring assistance completed. Patient admitted, IV remains in cm10 place. 18:34 Provided Education on: Need for admit. cm10 Administered Medications: 13:24 Drug: morphine IVP or IV 4 mg IVP once over 4 mins Route: IVP; Infused Over: 4 mins; cm10 Site: left hand; 14:00 Follow up: Response: No adverse reaction cm10 13:24 Drug: Ondansetron IVP 4 mg IVP once; over 2 minutes Route: IVP; Site: left hand; cm10 14:00 Follow up: Response: No adverse reaction cm10 Medication: 12:33 VIS not applicable for this client. cm10 Outcome: 15:42 Discharge ordered by . jonathan 17:09 Decision to Hospitalize by Provider. sd2 18:34 Admitted to Med/surg via stretcher, room 215, cm10 18:34 Condition: good 18:34 Instructed on the need for admit, 19:00 Patient left the ED. cm10 Signatures: Dispatcher [employer] EDIvis Finley, RN RN Margaret Dowell Stephanie, MD MD sd2 Kristin Blas RN RN cm10 Corrections: (The following items were deleted from the chart) 12:33 12:32 Pain: Complains of pain in right arm and right leg cm10 cm10 13:32 13:24 PTT, ACTIVATED+COAG.LAB.BRZ drawn and sent. cm10 EDMS 18:11 16:55 initiated a transfer with Yajaira Liang from the [facility]
[2023-11-05] MEDS ORDERED: ACETAMINOPHEN 500 MG TAB ONE (18:50)
[2023-11-05] MEDS: ACETAMINOPHEN 500 MG TAB PO PRN (18:54)
--- NOTE | 2023-11-05 20:54 | P.SSS ---
Patient History Date of Service: 11/05/23 Reason for admission: FELL AT HOME AND BROKE R ARM History of Present Illness: CAMRYN IS A PATIENT WITH MORBID OBESITY, DIABETIC NEUROPATHY WHO IS NOT SAFE AT HOME. SHE WAS IN NH UNTIL ABOUT A WEEK AGO, WENT HOME AND BROKE R HUMERUS. SHE HAS NO HELP AT HOME. SON WORKS. SHE NEEDS TO BE IN NH PERMANENTLY. SHE LOVES TO BE IN HOSPITAL. SHE GETS TOTAL CARE HERE AND SO SHE LOVES TO BE HERE. ONCE IN THE HOSPITAL SHE DOES NOT COOPERATE WITH PT FROM DAY ONE, GETS WEAKER AND GOES TO NH. Allergies carbamazepine [From Tegretol] Allergy (Intermediate, Verified 09/03/23 08:08) Hives/Rash Iodinated Contrast Media [IV Dye, Iodine Containing Contrast ] Allergy (Intermediate, Verified 09/03/23 08:08) Hives Home medications list reviewed: Yes Home Medications: Atorvastatin Calcium [Lipitor*] 20 mg PO BEDTIME tab 06/01/19 Apixaban [Eliquis] 5 mg PO BID 10/24/22 Metoprolol Tartrate [Lopressor*] 25 mg PO DAILY 10/24/22 Amlodipine [Norvasc*] 1 tab PO DAILY 09/03/23 Empagliflozin/Metformin HCl [Synjardy Xr 25-1,000 mg Tablet] 1 tab PO DAILY 09/03/23 Fluoxetine HCl 1 tab PO DAILY 09/03/23 Insulin Glargine/Lixisenatide [Soliqua 100 Unit-33 Mcg/ml Pen] 60 mg SQ DAILY 09/03/23 Losartan/Hydrochlorothiazide [Losartan-Hctz 100-12.5 mg Tab] 1 tab PO DAILY 09/03/23 Omeprazole 20 mg PO DAILY 09/03/23 Pregabalin 2 tab PO DAILY 09/03/23 buPROPion HCL [Bupropion HCl Sr] 1 tab PO DAILY 09/03/23 - Past Medical/Surgical History Diabetic: Yes -: dm -: htn -: cva -: copd -: COPD -: BREAST AND CERVICAL CA -: ANEMIA -: DEPRESSION/ANXIETY -: HEADACHES -: Bladder Suspension sx 4 -: Left Ankle Surgery -: Stomach surgery (ureter sx) -: Breast biopsy -: appy -: hysterectomy Psychosocial/ Personal History: Patient lives at home alone. - Family History Father -: Hypertension, Stroke Mother -: Hypertension, Diabetes - Social History Alcohol use: No CD- Drugs: No Caffeine use: Yes Review of Systems 10-point ROS is otherwise unremarkable General: Weakness Physical Examination - Vital Signs Temperature: 97.3 F Blood Pressure: 120/51 Pulse: 77 Respirations: 16 - Physical Exam General: Alert, In no apparent distress HEENT: Atraumatic, PERRLA, Mucous membr. moist/pink, EOMI, Sclerae nonicteric Neck: Supple, 2+ carotid pulse no bruit, No LAD, Without JVD or thyroid abnorma lity Respiratory: Clear to auscultation bilaterally, Normal air movement Cardiovascular: Regular rate/rhythm, Normal S1 S2 Gastrointestinal: Normal bowel sounds, No tenderness Musculoskeletal: No tenderness Integumentary: No rashes Neurological: Normal gait, Normal speech, Normal strength at 5/5 x4 extr, Normal tone, Normal affect Lymphatics: No axilla or inguinal lymphadenopathy - Studies Laboratory Data (last 24 hrs) 11/05/23 11/05/23 11/05/23 13:20 13:20 13:20 WBC 11.60 H Hgb 10.1 L Hct 33.6 L Plt Count 319 PT 16.8 H INR 1.52 APTT 44.2 H Sodium 136 Potassium 4.1 BUN 19 H Creatinine 0.81 Glucose 152 H 11/05/23 12:34 WBC Hgb Hct Plt Count PT INR APTT Cancelled Sodium Potassium BUN Creatinine Glucose - Diagnosis (Problem(s)) (1) Right humeral fracture Current Visit: Yes Status: Acute Plan: ABOVE NEEDS FULL NH PLACEMENT FOR LIFETIME. SHE IS NOT SAFE TO BE LIVING ALONE WHEN SON WORKS. Qualifiers: Encounter type: initial encounter (2) Diabetic peripheral neuropathy Current Visit: No Status: Chronic Plan: SHE IS ON HIGH DOSE OF LYRICA FOR LONG DURATION. - Disposition Disposition: ROUTINE DISCHARGE
[2023-11-05] MEDS: ONDANSETRON 4 MG/2 ML VIAL IV PRN (21:26)
[2023-11-05] MEDS: MORPHINE 2 MG/ML SYR IV PRN (21:26)
[2023-11-06 08:18] LABS: Anion Gap 10.1 mEq/L (5.0-15.0)
[2023-11-06 08:19] LABS: Potassium 4.1 mEq/L (3.5-5.1)
[2023-11-06 08:49] LABS: Absolute Basophils 0.1 K/uL (0-0.5); Absolute Eosinophils 0.1 K/uL (0-0.5); Absolute Lymphocytes (CBC) 2.6 K/uL (0.7-4.9); Absolute Monocytes 0.9 K/uL (0.1-1.3); Absolute Neutrophil 4.4 K/uL (1.8-8.0); Basophils % 0.7 % (0-1.3); Eosinophils % 1.5 % (0-4.4); Hematocrit 31.5 % (36.0-45.0); Hemoglobin 9.1 g/dL (12.0-15.0); Lymphocytes % 31.9 % (15.3-44.8); MCH 21.4 pg (27.0-35.0); MCHC 28.9 g/dL (32.0-36.0); MCV 74.2 fL (80-100); MPV 8.5 fL (7.6-11.3); Monocytes % 11.1 % (3.3-12.3); Neutrophils % 54.8 % (41.7-73.7); Platelets 298 thou/uL (152-406); RBC Red Blood Cell Count 4.25 M/uL (3.86-4.86); Red Cell Distribution Width 20.1 % (12.1-15.2)
[2023-11-06] MEDS: HOME MED 1 EA UNK (Insulin Glargine/Lixisenatide [Soliqua 100 Unit-33 Mcg/Ml Pen] 3 ML Ins SQ SCH (09:00)
[2023-11-06] MEDS: HOME MED 1 EA UNK (Fluoxetine Hcl [Fluoxetine Hcl] 20 MG Tablet) PO SCH (09:00)
[2023-11-06] MEDS ORDERED: BUPROPRION HCL S.R. 150MG TAB PO SCH (09:00)
[2023-11-06] MEDS: BUPROPION HCL PO SCH (09:00)
[2023-11-06] MEDS: [UNRECOGNIZED DRUG - OTHER] PO SCH (09:00)
[2023-11-06] MEDS: HOME MED 1 EA UNK (Losartan/Hydrochlorothiazide [Losartan-Hctz 100-12.5 Mg Tab] Tablet) PO SCH (09:00)
[2023-11-06] MEDS: METFORMIN HCL PO SCH (09:00)
[2023-11-06] MEDS ORDERED: BUPROPION HCL PO SCH ×2 (09:00)
[2023-11-06] MEDS: EMPAGLIFLOZIN PO SCH (09:00)
[2023-11-06] MEDS: PREGABALIN 300 MG PO SCH (09:00)
[2023-11-06] MEDS: HOME MED 1 EA UNK (Omeprazole [Omeprazole] 20 MG Tablet.Dr) PO SCH (09:00)
[2023-11-06] MEDS: AMLODIPINE 10 MG TAB PO SCH (09:45)
[2023-11-06] MEDS: APIXABAN 5 MG TABLET PO SCH (09:46)
[2023-11-06] MEDS: METOPROLOL TAR 50 MG TAB PO SCH (09:47)
[2023-11-06 10:23] LABS: Urine Clarity Clear (Clear); Urine Color Yellow (Yellow); Urine Glucose 3+ (Negative)
[2023-11-06 10:24] LABS: Urine Bilirubin NEGATIVE (Negative); Urine Blood Negative (Negative); Urine Ketones Negative (Negative); Urine Protein NEGATIVE (Negative); Urine Urobilinogen 1+ mg/dL (0.2-1.0); Urine pH 5.5 (5.0-7.0)
[2023-11-06 10:25] LABS: Urine Nitrite POSITIVE (Negative)
[2023-11-06 10:28] LABS: Urine Microscopic Reflex YN ORDER UMIC
[2023-11-06 10:29] LABS: Sqamous Epithelial <5 /HPF (None Seen); Urine Bacteria <20 /HPF (<20); Urine Culture Reflex Order NOT NEEDED; Urine RBC <5 /HPF (None Seen); Urine WBC <5 /HPF (<5)
[2023-11-06 10:30] LABS: Urine Mucus Slight /HPF (None Seen); Urine Yeast (Budding) Trace /HPF (None Seen)
[2023-11-06 10:43] LABS: Anisocytosis 1+; Blood Morphology Comment NOTED (NOT SEEN); Hypochromasia 1+; Microcytosis 1+; Platelet Estimate ADEQ; White Blood Cell Scan OK (OK)
[2023-11-06 13:41] LABS: Blood Gas Oxyhemoglobin 85.1 % (94-97); Blood Gas THB 8.9 g/dl (12-18); Blood O2 Saturation 87.9 % (92-98.5)
--- NOTE | 2023-11-06 15:23 | RAD REPORT ---
EXAMINATION: ONE VIEW CHEST XR CLINICAL INDICATION: Post VQ scan TECHNIQUE: Frontal chest projection is submitted. Examination is limited by patient positioning and t echnique. COMPARISON: 09/03/2023 FINDINGS: The lungs are well inflated and clear. The heart is mildly enlarged in size. No displaced fractures i dentified. Possible small left pleural effusion. Right axillary jaziel dissection clips noted.
--- NOTE | 2023-11-06 15:26 | RAD REPORT ---
EXAMINATION: NUCLEAR MEDICINE VENTILATION PERFUSION SCAN XENON CLINICAL INDICATION: . Shortness of breath, chest pain TECHNIQUE: Ventilation images after inhaled radiopharmaceutical obtained in multiple projections.. Pe rfusion images were obtained in multiple projections after intravenous injection of Tc-99m MAA. RADIOPHARMACEUTICALS: 15.1 mCi of Xenon-133 and 7.2 mCi intravenous Tc-99m MAA. COMPARISON: Examination correlated with recent chest radiograph. FINDINGS: VENTILATION: No focal ventilation defect. PERFUSION: No wedge-shaped peripheral perfusion defects. IMPRESSION: Low probability for pulmonary embolism.
[2023-11-06] MEDS ORDERED: ENOXAPARIN 40 MG/0.4 ML SQ SCH (17:00)
--- NOTE | 2023-11-06 17:39 | CON ---
Date of Consultation: 11/06/2023 Reason For Consultation: Right arm pain. History Of Present Illness: Kiley is a 78-year-old female who was admitted to the hospital after sustaining a fall onto her right side with subsequent pain. The patient had x-rays that demonstrated a right proximal humerus fracture. The patient is admitted to the hospital for possible placement. The patient was placed in a shoulder sling. The patient reports pain in the right shoulder at this time. The patient denies any other musculoskeletal complaints at this time. The patient reports his tory of recent mastectomy with wounds that she has seen Dr. Blas for. Review of Systems: As above, otherwise negative. Past Medical History: Includes diabetes, hypertension, history of CVA, COPD, breast and cervical can cer, anemia, depression, anxiety, headaches. Past Surgical History: Includes mastectomy, left ankle surgery, appendectomy, hysterectomy, and stom ach surgery. Home Medications: Lipitor, Eliquis, metoprolol, Norvasc, metformin, empagliflozin, fluoxetine, insul in, Soliqua, losartan, hydrochlorothiazide, omeprazole, pregabalin, bupropion. Allergies: CARBAMAZEPINE, IODINE CONTRAST. Social History: Denies tobacco or alcohol use. Physical Examination: General: No apparent distress. HEENT: Normocephalic, atraumatic. Neck: Supple. Cardiovascular: Brisk cap refill to all digits. Chest: Nonlabored breathing. Abdomen: Nondistended. Psychiatric: Responsive to exam. Musculoskeletal: Tenderness to palpation over the proximal humerus; pain with range of motion of the right humerus; positive firing of EPL, FPL, intrinsics. Sensation is intact to light touch in the r adial, median, and ulnar nerve distribution. Left upper extremity functional range of motion is with out pain. No gross deformities. No obvious dislocations. Bilateral lower extremities, functional r octaviano of motion without pain. No gross deformities. No obvious dislocations. Diagnostic Studies: X-rays of the right shoulder demonstrate a right proximal humerus shaft fracture with mild displacement. Assessment And Plan: Kiley is a 78-year-old female with a right proximal humerus fracture. I dis cussed with the patient at length her diagnosis as well as treatment plan. X-rays demonstrate overal l minimal displacement at this time. We will proceed with a course of conservative treatment measure s including continue immobilization in a shoulder sling. The patient may be transitioned to a Sarmie nto brace in the future as her swelling improves. The patient remained nonweightbearing of her right upper extremity at this time. The patient will follow up in clinic in 2 weeks for re-evaluation, re peat x-rays of her right shoulder. IVAN/VIJAY Voice ID: [id number] Report ID: [id number]
[2023-11-06] MEDS: ATORVASTATIN 20 MG TAB PO SCH (21:00)
[2023-11-06] MEDS: TRAZODONE 50 MG TABLET PO PRN (21:45)
[2023-11-07] MEDS: INSULIN REGULAR (HUMAN) 100 UNIT/ML SQ SCH (07:30)
[2023-11-07] MEDS ORDERED: INSULIN REGULAR (HUMAN) 100 UNIT/ML SQ SCH (07:30)
[2023-11-07 09:06] LABS: Blood O2 Saturation 96.6 % (92-98.5)
[2023-11-07 09:07] LABS: Arterial Blood Carboxyhemoglob 1.9 % (0-1.5); Blood Gas Oxyhemoglobin 93.6 % (94-97); Blood Gas THB 9.3 g/dl (12-18)
[2023-11-07] MEDS: TRAMADOL HCL 50 MG TAB PO PRN (14:16)
--- NOTE | 2023-11-07 16:12 | P.PN ---
Subjective Date of Service: 11/07/23 Chief Complaint: FELL AT HOME AND BROKE R ARM Subjective: No new changes FRACTURE R ARM. NOT DOING MUCH PT. NEEDS [facility] NOW. Review of Systems 10-point ROS is otherwise unremarkable General: Weakness Physical Examination - Vital Signs Temperature: 98 F Blood Pressure: 147/68 Pulse: 86 Respirations: 12 Pulse Ox (%): 93 - Physical Exam General: Oriented x3, Mild distress, Moderate distress, Obese HEENT: Atraumatic, PERRLA, EOMI Neck: Supple, JVD not distended Respiratory: Clear to auscultation bilaterally, Normal air movement Cardiovascular: Regular rate/rhythm, Normal S1 S2 Gastrointestinal: Normal bowel sounds, No tenderness Musculoskeletal: No tenderness Integumentary: No rashes Neurological: Normal speech, Normal tone, Normal affect Lymphatics: No axilla or inguinal lymphadenopathy - Studies Medications List Reviewed: Yes Assessment And Plan - Current Problems (Diagnosis) (1) Right humeral fracture Current Visit: Yes Status: Acute Plan: ABOVE NEEDS FULL NH PLACEMENT FOR LIFETIME. SHE IS NOT SAFE TO BE LIVING ALONE WHEN SON WORKS. Qualifiers: Encounter type: initial encounter (2) Diabetic peripheral neuropathy Current Visit: No Status: Chronic Plan: SHE IS ON HIGH DOSE OF LYRICA FOR LONG DURATION. (3) History of atrial fibrillation Current Visit: Yes Status: Chronic Plan: CONT MEDS NO CHANGES (4) COPD (chronic obstructive pulmonary disease) Current Visit: No Status: Chronic Plan: HYPOXIA, HYPERCAPNEA, MORBID OBESITY SECOND HAND SMOKING. START NEBS BID. AVOID HIGH DOSE SHE HAS FIB. Qualifiers: COPD type: unspecified COPD Qualified Code(s): J44.9 - Chronic obstructive pulmonary disease, unspecified
[2023-11-07] MEDS: ALBUTEROL 2.5 MG/3 ML NEB SOL NEB SCH (20:32)
[2023-11-07] MEDS: IPRATROPIUM BROM 0.5MG/2.5ML NEB SCH (20:32)
--- NOTE | 2023-11-08 07:06 | P.PN ---
Date of Service: 11/08/23 Subjective: No acute events overnight Feels pain is slightly more tolerable Denies any new or worsening symptoms issues ROS: 10 point ROS as noted above, otherwise negative Physical Exam: GEN: Alert, oriented, NAD CV: Regular rate and rhythm, no edema Pulm: Nonlabored respirations on 2 L NC, clear bilaterally ABD: Soft, nontender, nondistended MSK: RUE with sling in place Neuro: Normal speech, normal affect vitals reviewed Problem List: Right humeral fracture, acute Acute on chronic hypoxic/hypercapnic respiratory failure secondary to COPD exacerbation IDDM2 with neuropathy Hypertension Anemia, chronic Depression/Anxiety Hx a-fib Hx CVA Hx breast/cervical cancer Right humeral fracture, acute Xray R humerus (11/04): oblique proximal right humeral shaft fracture CT head/spine (11/04): no acute intracranial findings. Cervical spine degenerative changes Dr. Cunha, ortho consulted recommended conservative management with immobilization, shoulder sling, pain control non-weightbearing to right upper extremity per ortho f/u in ortho clinic in 2 weeks for reevaluation, repeat xrays pain control ss/cm looking into halfway acute on chronic hypoxic/hypercapnic respiratory failure secondary to COPD exacerbation VQ scan (11/05): low probability for PE CXR (11/05): Possible small left pleural effusion. lungs clear continue duonebs, inhalers continue home meds oxygen supplementation as needed IDDM2 with neuropathy accu-cheks, SSI continue home insulin regimen Hypertension Anemia, chronic Depression/Anxiety Hx a-fib Hx CVA Hx breast/cervical cancer Continue home medications VTE: home eliquis Code: Full Dispo: intermediate- [place], pending approval Time Spent Managing Pts Care (In Minutes): 41
[2023-11-09 04:31] VITALS: BMI 35.2
[2023-11-09 06:20] LABS: Absolute Basophils 0.1 K/uL (0-0.5); Absolute Eosinophils 0.1 K/uL (0-0.5); Absolute Lymphocytes (CBC) 1.9 K/uL (0.7-4.9); Basophils % 0.7 % (0-1.3); Eosinophils % 0.6 % (0-4.4); Hematocrit 30.6 % (36.0-45.0); Hemoglobin 9.3 g/dL (12.0-15.0); Lymphocytes % 23.7 % (15.3-44.8); MCH 22.4 pg (27.0-35.0); MCHC 30.4 g/dL (32.0-36.0); MCV 73.5 fL (80-100); MPV 8.1 fL (7.6-11.3); Nucleated Red Blood Cells % 0.1 % (0-0); Platelets 356 thou/uL (152-406); RBC Red Blood Cell Count 4.16 M/uL (3.86-4.86); Red Cell Distribution Width 19.9 % (12.1-15.2)
[2023-11-09 06:32] LABS: Anion Gap 8.1 mEq/L (5.0-15.0); Magnesium 2.2 mg/dL (1.6-2.4); Potassium 4.1 mEq/L (3.5-5.1)
--- NOTE | 2023-11-09 09:26 | P.PN ---
Date of Service: 11/09/23 Subjective: feels ~same as yesterday Doesn't feel anything is getting worse no acute events overnight worked with PT yesterday ROS: 10 point ROS as noted above, otherwise negative Physical Exam: GEN: Alert, oriented, NAD CV: Regular rate and rhythm, no edema Pulm: Nonlabored respirations on 2 L NC, clear bilaterally MSK: RUE with sling in place Neuro: Normal speech, normal affect vitals reviewed Problem List: Right humeral fracture, acute Acute on chronic hypoxic/hypercapnic respiratory failure secondary to COPD exacerbation IDDM2 with neuropathy Hypertension Anemia, chronic Depression/Anxiety Hx a-fib Hx CVA Hx breast/cervical cancer Right humeral fracture, acute Xray R humerus (11/04): oblique proximal right humeral shaft fracture CT head/spine (11/04): no acute intracranial findings. Cervical spine degenerative changes Dr. Cunha, ortho consulted recommended conservative management with immobilization, shoulder sling, pain control non-weightbearing to right upper extremity per ortho f/u in ortho clinic in 2 weeks for reevaluation, repeat xrays continue PT pain control ss/cm looking into long-term nursing homes acute on chronic hypoxic/hypercapnic respiratory failure secondary to COPD exacerbation VQ scan (11/05): low probability for PE CXR (11/05): Possible small left pleural effusion. lungs clear continue duonebs, inhalers continue home meds oxygen supplementation as needed IDDM2 with neuropathy accu-cheks, SSI continue home insulin regimen Hypertension Anemia, chronic Depression/Anxiety Hx a-fib Hx CVA Hx breast/cervical cancer Continue home medications VTE: home eliquis Code: Full Dispo: [place]O [place], pending approval Time Spent Managing Pts Care (In Minutes): 41
--- NOTE | 2023-11-10 12:05 | P.PN ---
Subjective Date of Service: 11/10/23 Chief Complaint: FELL AT HOME AND BROKE R ARM Subjective: No new changes FRACTURE R ARM. NOT DOING MUCH PT. NEEDS [facility] NOW BEFORE, SHE ONCE IN HOSPITAL QUITS TALKING AND LAYS IN BED ALL DAY. Review of Systems 10-point ROS is otherwise unremarkable General: Weakness Physical Examination - Vital Signs Temperature: 98.3 F Blood Pressure: 152/68 Pulse: 97 Respirations: 12 Pulse Ox (%): 98 - Physical Exam General: Oriented x3, Mild distress, Obese HEENT: Atraumatic, PERRLA, EOMI Neck: Supple, JVD not distended Respiratory: Clear to auscultation bilaterally, Normal air movement Cardiovascular: Regular rate/rhythm, Normal S1 S2 Gastrointestinal: Normal bowel sounds, No tenderness Musculoskeletal: No tenderness Integumentary: No rashes Neurological: Normal speech, Normal tone, Normal affect Lymphatics: No axilla or inguinal lymphadenopathy - Studies Medications List Reviewed: Yes Assessment And Plan - Current Problems (Diagnosis) (1) Right humeral fracture Current Visit: Yes Status: Acute Plan: ABOVE NEEDS FULL NH PLACEMENT FOR LIFETIME. SHE IS NOT SAFE TO BE LIVING ALONE WHEN SON WORKS. Qualifiers: Encounter type: initial encounter (2) Diabetic peripheral neuropathy Current Visit: No Status: Chronic Plan: SHE IS ON HIGH DOSE OF LYRICA FOR LONG DURATION. (3) History of atrial fibrillation Current Visit: Yes Status: Chronic Plan: CONT MEDS NO CHANGES (4) COPD (chronic obstructive pulmonary disease) Current Visit: No Status: Chronic Plan: HYPOXIA, HYPERCAPNEA, MORBID OBESITY SECOND HAND SMOKING. START NEBS BID. AVOID HIGH DOSE SHE HAS FIB. STABLE NO SIGNS OF WHEEZING OR COPD EXACERBATION NOW. WILL NEED LOW DOSE OXYGEN. Qualifiers: COPD type: unspecified COPD Qualified Code(s): J44.9 - Chronic obstructive pulmonary disease, unspecified
--- NOTE | 2023-11-11 13:01 | P.DS ---
Admission Date: 11/07/23 Discharge Date: 11/11/23 Disposition: TRANSFER TO GROUP HOME Discharge Condition: FAIR Reason for Admission: FELL AT HOME AND BROKE R ARM - Problems (1) Right humeral fracture Current Visit: Yes Status: Acute Qualifiers: Encounter type: initial encounter (2) Diabetic peripheral neuropathy Current Visit: No Status: Chronic (3) History of atrial fibrillation Current Visit: Yes Status: Chronic (4) COPD (chronic obstructive pulmonary disease) Current Visit: No Status: Chronic Qualifiers: COPD type: unspecified COPD Qualified Code(s): J44.9 - Chronic obstructive pulmonary disease, unspecified Brief History of Present Illness: CAMRYN IS A PATIENT WITH MORBID OBESITY, DIABETIC NEUROPATHY WHO IS NOT SAFE AT HOME. SHE WAS IN NH UNTIL ABOUT A WEEK AGO, WENT HOME AND BROKE R HUMERUS. SHE HAS NO HELP AT HOME. SON WORKS. SHE NEEDS TO BE IN [place] PERMANENTLY. SHE LOVES TO BE IN HOSPITAL. SHE GETS TOTAL CARE HERE AND SO SHE LOVES TO BE HERE. ONCE IN THE HOSPITAL SHE DOES NOT COOPERATE WITH PT FROM DAY ONE, GETS WEAKER AND GOES TO NH. Hospital Course: CAMRYN IS AN OBESE DIABETIC WITH NEUROPATHY, WHO DOES NOT DO MUCH AT HOME. CAME OUT OF NH, WENT HOME, FELL IN AWEEK AND BACK IN HOSPITAL WITH A BROKEN HUMERUS. [place] IS ADVISED TO GO TO [place] PER[place] SON IS NOT ABLE TO TAKE CARE OF HER. THEY AGREED AND NOW WITH INSURANCE APPROVAL RADIOLOGIC TECHNOLOGY INSTRUCTOR IS WORKING WITH SON FOR NH PLACEMENT. HOPEFULLY TODAY SHE WILL GO. Vital Signs/Physical Exam: Temp Pulse Resp BP Pulse Ox 97.6 F 78 16 147/65 H 100 11/11/23 12:00 11/11/23 12:00 11/11/23 12:00 11/11/23 12:00 11/11/23 12:00 Laboratory Data at Discharge: WBC 7.90 thou/uL (4.3-10.9) 11/09/23 05:48 Hgb 9.3 g/dL (12.0-15.0) L 11/09/23 05:48 Hct 30.6 % (36.0-45.0) L 11/09/23 05:48 Plt Count 356 thou/uL (152-406) 11/09/23 05:48 PT 16.8 SECONDS (9.4-12.5) H 11/05/23 13:20 INR 1.52 11/05/23 13:20 APTT 44.2 SECONDS (24.3-36.9) H 11/05/23 13:20 Sodium 133 mEq/L (136-145) L 11/09/23 05:48 Potassium 4.1 mEq/L (3.5-5.1) 11/09/23 05:48 BUN 28 mg/dL (7-18) H 11/09/23 05:48 Creatinine 0.60 mg/dL (0.55-1.02) 11/09/23 05:48 Glucose 111 mg/dL (74-106) H 11/09/23 05:48 Magnesium 2.2 mg/dL (1.6-2.4) 11/09/23 05:48 Home Medications: Atorvastatin Calcium [Lipitor*] 20 mg PO BEDTIME tab 06/01/19 Apixaban [Eliquis] 5 mg PO BID 10/24/22 Metoprolol Tartrate [Lopressor*] 25 mg PO DAILY 10/24/22 Amlodipine [Norvasc*] 1 tab PO DAILY 09/03/23 Empagliflozin/Metformin HCl [Synjardy Xr 25-1,000 mg Tablet] 1 tab PO DAILY 09/03/23 Fluoxetine HCl 1 tab PO DAILY 09/03/23 Insulin Glargine/Lixisenatide [Soliqua 100 Unit-33 Mcg/ml Pen] 60 mg SQ DAILY 09/03/23 Losartan/Hydrochlorothiazide [Losartan-Hctz 100-12.5 mg Tab] 1 tab PO DAILY 09/03/23 Omeprazole 20 mg PO DAILY 09/03/23 Pregabalin 2 tab PO DAILY 09/03/23 buPROPion HCL [Bupropion HCl Sr] 1 tab PO DAILY 09/03/23 Trazodone [Desyrel*] 50 mg PO BEDTIME PRN PRN 11/11/23 traMADol HCL [Ultram*] 50 mg PO Q6H PRN tab 11/11/23 Followup: Jesus Franco MD [Primary Care Provider] -
[2023-11-11] MEDS: PREGABALIN 150 MG CAP PO SCH (21:01)
--- NOTE | 2023-11-12 18:03 | P.PN ---
Subjective Date of Service: 11/12/23 Chief Complaint: FELL AT HOME AND BROKE R ARM FRACTURE R ARM. NOT DOING MUCH PT. NEEDS [facility] NH NOW BEFORE, SHE ONCE IN HOSPITAL QUITS TALKING AND LAYS IN BED ALL DAY. SHE LAYS ALL DAY DOES NOT DO ANY SITTING OR STANDING, SHE SHOULD BE DOING PT HAS BEEN ORDERED. Review of Systems is unable to be obtained Physical Examination - Vital Signs Temperature: 97.8 F Blood Pressure: 158/70 Pulse: 77 Respirations: 14 Pulse Ox (%): 98 - Physical Exam General: Oriented x3, Mild distress, Obese HEENT: Atraumatic, PERRLA, EOMI Neck: Supple, JVD not distended Respiratory: Clear to auscultation bilaterally, Normal air movement Cardiovascular: Regular rate/rhythm, Normal S1 S2 Gastrointestinal: Normal bowel sounds, No tenderness Musculoskeletal: No tenderness Integumentary: No rashes Neurological: Normal speech, Normal tone, Normal affect Lymphatics: No axilla or inguinal lymphadenopathy - Studies Medications List Reviewed: Yes Assessment And Plan - Current Problems (Diagnosis) (1) Right humeral fracture Current Visit: Yes Status: Acute Plan: ABOVE NEEDS FULL NH PLACEMENT FOR LIFETIME. SHE IS NOT SAFE TO BE LIVING ALONE WHEN SON WORKS. Qualifiers: Encounter type: initial encounter (2) Diabetic peripheral neuropathy Current Visit: No Status: Chronic Plan: SHE IS ON HIGH DOSE OF LYRICA FOR LONG DURATION. (3) History of atrial fibrillation Current Visit: Yes Status: Chronic Plan: CONT MEDS NO CHANGES (4) COPD (chronic obstructive pulmonary disease) Current Visit: No Status: Chronic Plan: HYPOXIA, HYPERCAPNEA, MORBID OBESITY SECOND HAND SMOKING. START NEBS BID. AVOID HIGH DOSE SHE HAS FIB. STABLE NO SIGNS OF WHEEZING OR COPD EXACERBATION NOW. WILL NEED LOW DOSE OXYGEN. ABG ON CURRENT OXYGEN RT HAS RAISED OXYGEN. Qualifiers: COPD type: unspecified COPD Qualified Code(s): J44.9 - Chronic obstructive pulmonary disease, unspecified
--- NOTE | 2023-11-13 08:11 | P.PN ---
Subjective Date of Service: 11/13/23 Chief Complaint: FELL AT HOME AND BROKE R ARM Subjective: Improving FRACTURE R ARM. NOT DOING MUCH PT. NEEDS L[facility]EM[facility] NH NOW SHE IS TALKING TODAY AND HAPPY SHE WALKED YESTERDAY AFTER I ASKED HER FOR MANY DAYS. SHE HAS NO NEW COMPLAINTS. Review of Systems 10-point ROS is otherwise unremarkable General: Weakness Physical Examination - Vital Signs Temperature: 98.2 F Blood Pressure: 148/69 Pulse: 75 Respirations: 14 Pulse Ox (%): 98 - Physical Exam General: Oriented x3, Obese HEENT: Atraumatic, PERRLA, EOMI Neck: Supple, JVD not distended Respiratory: Clear to auscultation bilaterally, Normal air movement Cardiovascular: Regular rate/rhythm, Normal S1 S2 Gastrointestinal: Normal bowel sounds, No tenderness Musculoskeletal: No tenderness, Other (R HUM FRACTURE) Integumentary: No rashes Neurological: Normal speech, Normal tone, Normal affect Lymphatics: No axilla or inguinal lymphadenopathy - Studies Medications List Reviewed: Yes Assessment And Plan - Current Problems (Diagnosis) (1) Right humeral fracture Current Visit: Yes Status: Acute Plan: ABOVE NEEDS FULL NH PLACEMENT FOR LIFETIME. SHE IS NOT SAFE TO BE LIVING ALONE WHEN SON WORKS. FOR [employer]ED[employer] SAFETY, SHE SHOULD BE IN NH NOW. SON IS TRYING TO GET ALL PAPERWORK DONE. MEDICAID SHOULD HELP. SOCIAL WORKERS ARE WORKING HARD TO GET HER SETTLED SO SHE CAN BE DISCHARGED SHE IS MEDICALLY STABLE. Qualifiers: Encounter type: initial encounter (2) Diabetic peripheral neuropathy Current Visit: No Status: Chronic Plan: SHE IS ON HIGH DOSE OF LYRICA FOR LONG DURATION. (3) History of atrial fibrillation Current Visit: Yes Status: Chronic Plan: CONT MEDS NO CHANGES (4) COPD (chronic obstructive pulmonary disease) Current Visit: No Status: Chronic Plan: HYPOXIA, HYPERCAPNEA, MORBID OBESITY SECOND HAND SMOKING. START NEBS BID. AVOID HIGH DOSE SHE HAS FIB. ABG SHOWS CO2 IN 40S I HAVE ASKED RT TO KEEP O2 AT 1 LT MORE MAKES HER LETHARGIC. Qualifiers: COPD type: unspecified COPD Qualified Code(s): J44.9 - Chronic obstructive pulmonary disease, unspecified
[2023-11-13] MEDS: LIXISENATIDE SQ SCH (09:00)
[2023-11-13] MEDS: INSULIN GLARGINE SQ SCH (09:00)
[2023-11-14 13:05] VITALS: TEMP 98.2
--- NOTE | 2023-11-14 13:05 | P.DS ---
Admission Date: 11/07/23 Discharge Date: 11/14/23 Disposition: TRANSFER TO RETIREMENT Discharge Condition: FAIR Reason for Admission: FELL AT HOME AND BROKE R ARM - Problems (1) Right humeral fracture Current Visit: Yes Status: Acute Qualifiers: Encounter type: initial encounter (2) Diabetic peripheral neuropathy Current Visit: No Status: Chronic (3) History of atrial fibrillation Current Visit: Yes Status: Chronic (4) COPD (chronic obstructive pulmonary disease) Current Visit: No Status: Chronic Qualifiers: COPD type: unspecified COPD Qualified Code(s): J44.9 - Chronic obstructive pulmonary disease, unspecified Brief History of Present Illness: CAMRYN IS A PATIENT WITH MORBID OBESITY, DIABETIC NEUROPATHY WHO IS NOT SAFE AT HOME. SHE WAS IN NH UNTIL ABOUT A WEEK AGO, WENT HOME AND BROKE R HUMERUS. SHE HAS NO HELP AT HOME. SON WORKS. SHE NEEDS TO BE IN [place] PERMANENTLY. SHE LOVES TO BE IN HOSPITAL. SHE GETS TOTAL CARE HERE AND SO SHE LOVES TO BE HERE. ONCE IN THE HOSPITAL SHE DOES NOT COOPERATE WITH PT FROM DAY ONE, GETS WEAKER AND GOES TO NH. Hospital Course: CAMRYN IS AN OBESE DIABETIC WITH NEUROPATHY, WHO DOES NOT DO MUCH AT HOME. CAME OUT OF [place], WENT HOME, FELL IN AWEEK AND BACK IN HOSPITAL WITH A BROKEN HUMERUS. SHE IS ADVISED TO GO TO [place] PERMANENTLY SON IS NOT ABLE TO TAKE CARE OF HER. THEY AGREED AND NOW WITH INSURANCE APPROVAL ASSOCIATE APPLICATION DEVELOPER IS WORKING WITH SON FOR NH PLACEMENT. HOPEFULLY TODAY SHE WILL GO. CAMRYN'S DISCHARGED DELAYED FAMILY HAS TO WORK DOCUMENTS TO [facility] CAN APPLY FOR MEDICAID. SHE IS A FALL RISK AT HOME. SHE DOES NOT DO MUCH EXERCISE. SHE SHOULD STAY IN [place] FOR LIFETIME SHE HAS BEEN THROUGH MANY ROUNDS OF HOSPITAL, REHAB, HOME AND BACK TO HOSPITAL. Vital Signs/Physical Exam: Temp Pulse Resp BP Pulse Ox 98.0 F 88 16 171/72 H 98 11/14/23 08:05 11/14/23 09:43 11/14/23 11:03 11/14/23 09:43 11/14/23 11:03 Laboratory Data at Discharge: WBC 7.90 thou/uL (4.3-10.9) 11/09/23 05:48 Hgb 9.3 g/dL (12.0-15.0) L 11/09/23 05:48 Hct 30.6 % (36.0-45.0) L 11/09/23 05:48 Plt Count 356 thou/uL (152-406) 11/09/23 05:48 PT 16.8 SECONDS (9.4-12.5) H 11/05/23 13:20 INR 1.52 11/05/23 13:20 APTT 44.2 SECONDS (24.3-36.9) H 11/05/23 13:20 Sodium 133 mEq/L (136-145) L 11/09/23 05:48 Potassium 4.1 mEq/L (3.5-5.1) 11/09/23 05:48 BUN 28 mg/dL (7-18) H 11/09/23 05:48 Creatinine 0.60 mg/dL (0.55-1.02) 11/09/23 05:48 Glucose 111 mg/dL (74-106) H 11/09/23 05:48 Magnesium 2.2 mg/dL (1.6-2.4) 11/09/23 05:48 Home Medications: Atorvastatin Calcium [Lipitor*] 20 mg PO BEDTIME tab 06/01/19 Apixaban [Eliquis] 5 mg PO BID 10/24/22 Metoprolol Tartrate [Lopressor*] 25 mg PO DAILY 10/24/22 Amlodipine [Norvasc*] 1 tab PO DAILY 09/03/23 Empagliflozin/Metformin HCl [Synjardy Xr 25-1,000 mg Tablet] 1 tab PO DAILY 09/03/23 Fluoxetine HCl 1 tab PO DAILY 09/03/23 Insulin Glargine/Lixisenatide [Soliqua 100 Unit-33 Mcg/ml Pen] 60 mg SQ DAILY 09/03/23 Losartan/Hydrochlorothiazide [Losartan-Hctz 100-12.5 mg Tab] 1 tab PO DAILY 09/03/23 Omeprazole 20 mg PO DAILY 09/03/23 Pregabalin 2 tab PO BID 09/03/23 buPROPion HCL [Bupropion HCl Sr] 1 tab PO DAILY 09/03/23 Trazodone [Desyrel*] 50 mg PO BEDTIME PRN PRN 11/11/23 traMADol HCL [Ultram*] 50 mg PO Q6H PRN tab 11/11/23 Followup: Jesus Franco MD [Primary Care Provider] -
[2023-11-14 13:50] VITALS: O2SAT 91
[2023-11-14 16:06] VITALS: BP 168/94
[2023-11-14] MEDS: INSULIN REGULAR (HUMAN) 100 UNIT/ML SQ SCH (17:10)
== END 2023-11-14 18:25 | DRG 562 ==
LOC: ER 12:25 → ERHOLD 17:15 → 2ND 18:48 → OBSVTOIN 11-07 06:49
PROVIDERS: ADMIT Internal Medicine; ATTEND Internal Medicine
PROC: 4A033R1 Measurement of Arterial Saturation, Peripheral, Percutaneous Approach (ICD-10-PCS; principal; 2023-11-06)
DX: S42.391A Other fracture of shaft of right humerus, initial encounter for closed fracture (principal); J96.21 Acute and chronic respiratory failure with hypoxia; J96.22 Acute and chronic respiratory failure with hypercapnia; I48.20 Chronic atrial fibrillation, unspecified; J44.1 Chronic obstructive pulmonary disease with (acute) exacerbation; I10 Essential (primary) hypertension; E11.42 Type 2 diabetes mellitus with diabetic polyneuropathy; D64.9 Anemia, unspecified; F41.9 Anxiety disorder, unspecified; F32.A Depression, unspecified; E66.01 Morbid (severe) obesity due to excess calories; S09.90XA Unspecified injury of head, initial encounter; Z60.2 Problems related to living alone; Z79.4 Long term (current) use of insulin; Z85.3 Personal history of malignant neoplasm of breast; Z88.8 Allergy status to other drugs, medicaments and biological substances; Z85.41 Personal history of malignant neoplasm of cervix uteri; Z90.11 Acquired absence of right breast and nipple; Z90.10 Acquired absence of unspecified breast and nipple; Z68.35 Body mass index [BMI] 35.0-35.9, adult; Z79.01 Long term (current) use of anticoagulants; Z86.73 Personal history of transient ischemic attack (TIA), and cerebral infarction without residual deficits; Z79.899 Other long term (current) drug therapy; Z90.710 Acquired absence of both cervix and uterus; W18.30XA Fall on same level, unspecified, initial encounter; Y93.9 Activity, unspecified; Y92.019 Unspecified place in single-family (private) house as the place of occurrence of the external cause; Y99.9 Unspecified external cause status
CPT/HCPCS: 36415; 36600; 70450; 71045; 72125; 78582; 80048; 81001; 82805; 82947; 83735; 85025; 85610; 85730; 94640; 96374; 96375; 97110; 97116; 97161; 97530; 99285; A9540; A9558; G0378; J2270; J2405; J7613; J7644

== ENCOUNTER 2023-12-10 09:57 | Observation (INO) | payer OTHER ==
--- NOTE | 2023-12-10 10:45 | RAD REPORT ---
EXAM: CT brain without contrast HISTORY: Left arm numbness COMPARISON: 2022 TECHNIQUE: Multiple contiguous axial images were obtained and a CT of the brain without contrast. Sagittal and coronal reformats were performed. Automated exposure control, adjustment of the mA and/or kV according to patient size, and/or itera tive reconstruction. Unless otherwise specified, incidental findings do not require dedicated imaging follow-u FINDINGS: An intracranial bleed is not seen Ventricles are normal caliber No extra-axial fluid collection noted No significant hypodensity within the brain No fluid within the visualized sinuses or mastoids noted. IMPRESSION: No acute intracranial abnormality noted. If the patient's symptoms persist MRI of the brain would be recommended. from the emergency room was notified at approximately 10:15 AM December 10, 2023
[2023-12-10 10:58] LABS: Absolute Basophils 0.1 K/uL (0-0.5); Absolute Eosinophils 0.2 K/uL (0-0.5); Absolute Lymphocytes (CBC) 2.1 K/uL (0.7-4.9); Absolute Monocytes 0.7 K/uL (0.1-1.3); Eosinophils % 3.3 % (0-4.4); Hematocrit 30.3 % (36.0-45.0); Lymphocytes % 29.8 % (15.3-44.8); MCH 21.6 pg (27.0-35.0); MCHC 29.7 g/dL (32.0-36.0); MCV 72.8 fL (80-100); Monocytes % 9.3 % (3.3-12.3); Neutrophils % 56.6 % (41.7-73.7); Platelets 296 thou/uL (152-406); RBC Red Blood Cell Count 4.16 M/uL (3.86-4.86); Red Cell Distribution Width 19.3 % (12.1-15.2)
[2023-12-10 11:07] LABS: PT Prothrombin Time 12.4 SECONDS (9.4-12.5); PTT, Activated Partial Thromb 38.5 SECONDS (24.3-36.9); Protime INR 1.11
--- NOTE | 2023-12-10 11:09 | RAD REPORT ---
Procedure: Chest Single View HISTORY: Chest pain COMPARISON: October 2023 FINDINGS: The lungs appear clear of acute infiltrate. No significant pleural effusion noted. The heart is mildly enlarged IMPRESSION: No acute abnormality is displayed.
[2023-12-10 11:19] LABS: Anion Gap 9.2 mEq/L (5.0-15.0); Potassium 4.2 mEq/L (3.5-5.1); Troponin High Sensitivity 6.9 pg/mL (<58.9)
[2023-12-10] MEDS: INSULIN LISPRO 100 UNIT/1 ML SQ ONE (13:00)
[2023-12-10 13:17] LABS: Band Neutrophils 2 % (0-1); Differential Total Cells Count 100; Eosinophils 2 % (0-3); Lymphocytes 29 % (15-42); Monocytes 6 % (0-10); Segmented Neutrophils 58 % (40-80)
[2023-12-10 13:18] LABS: Anisocytosis 1+; Blood Morphology Comment NOTED (NOT SEEN); Hypochromasia 1+; Metamyelocytes 1 % (0-0); Platelet Estimate ADEQ; Polychromasia 1+
[2023-12-10] MEDS ORDERED: INSULIN LISPRO 100 UNIT/1 ML ONE ×2 (13:35→23:56)
--- NOTE | 2023-12-10 13:38 | RAD REPORT ---
EXAMINATION: MRI BRAIN WITHOUT AND WITH CONTRAST CLINICAL INDICATION: STROKE ALERT TECHNIQUE: Multiplanar multisequence MR images of the brain were obtained without and with intravenou s contrast. Unless otherwise specified, incidental findings do not require dedicated imaging follow-up. COMPARISON: 09/05/2023 FINDINGS: INTRACRANIAL: Diffusion-weighted images show no acute or early subacute infarction. There is mild bra in atrophy with mildT2/FLAIR hyperintensities in the periventricular and deep white matter regions, likely representing chronic microvascular ischemic changes. There is no mass effect or midline shift. No abnormal extraaxial fluid collection. VASCULATURE: Normal signal voids in the larger intracranial arteries and dural venous sinuses. SINUSES: The paranasal sinuses and mastoid air cells are predominantly clear. BONE: The marrow signal pattern is within normal limits. CONTRAST: No pathologic postcontrast enhancement to indicate tumor or infection. OTHER FINDINGS: IMPRESSION: Negative for acute CVA or other acute intracranial process.
--- NOTE | 2023-12-10 13:41 | RAD REPORT ---
EXAM: MRA head without contrast HISTORY: Stroke LT ARM WEAKNESS COMPARISON: None TECHNIQUE: MRA of the head was performed without contrast using 3-D [id number] imaging. 3-D rotational refor mats were performed. FINDINGS: Right intracranial internal carotid artery: Patent without narrowing or occlusion Right anterior cerebral artery: Patent without narrowing or occlusion Right middle cerebral artery: Patent without narrowing or occlusion Left intracranial internal carotid artery: Patent without narrowing or occlusion Left anterior cerebral artery: Patent without narrowing or occlusion Left middle cerebral artery: Patent without narrowing or occlusion No aneurysmal dilatation is seen in the anterior circulation. Right vertebral artery: Patent without narrowing or occlusion Left vertebral artery: Patent without narrowing or occlusion Basilar artery: Patent without narrowing or occlusion The posterior cerebral arteries and cerebellar arteries are patent without narrowing or occlusion. No aneurysmal dilatation is seen in the posterior circulation. IMPRESSION: No significant MRA abnormality of the head
--- NOTE | 2023-12-10 13:53 | RAD REPORT ---
EXAM: MRA neck without and with contrast HISTORY: Stroke stroke alert COMPARISON: None TECHNIQUE: An MRA of the neck was performed without contrast using 2-D [id number] imaging. Postcontrast imag es were also performed using 2-D [id number]-[id number] imaging. 3-D rotational reformats were performed. FINDINGS: Aortic arch: Normal origin of the carotid arteries from the arch. No significant atherosclerotic dise ase of the subclavian arteries. Right common carotid artery: No significant atherosclerotic disease or narrowing Left common carotid artery: No significant atherosclerotic disease or narrowing Right internal carotid artery: No significant atherosclerotic disease or narrowing per NASCET criteri a Left internal carotid artery: No significant atherosclerotic disease or narrowing per NASCET criteri a. Somewhat limited assessment due to venous contamination artifact. Right cervical vertebral artery: No significant atherosclerotic disease or narrowing Left cervical vertebral artery: No significant atherosclerotic disease or narrowing IMPRESSION: No significant flow abnormality is detected. Left-sided internal carotid artery bifurcation is somewhat limited in assessment due to venous contam ination artifact. CTA could be obtained for further evaluation if clinically indicated.
--- NOTE | 2023-12-10 14:03 | EDPHYS ---
Physician Documentation [facility] Name: Kiley Ortega Age: 78 yrs Sex: Female : 1945 Arrival Date: 12/10/2023 Time: 09:57 Bed 8 Private MD: ED Physician Simeon Ramirez HPI: 12/09 10:10 This 78 yrs old Female presents to ER via Unassigned with complaints of Numbness Of Arm.ci 10:10 Patient is a 78-year-old female with PMH diabetes, COPD, CVA who presents to the ED ci with chief complaint of left arm numbness that began this morning around 4:30 AM when she woke up. Patient went to bed around 7 PM. Reports her nurse was trying to put her clothes on when she noticed that her left arm was numb. Numbness was not initially to the entire arm but improved, but now localized below her elbow. Patient concerned because she has a history of stroke. Upon EMS arrival, patient wants noted to be hypoglycemic, glucose read high on the glucometer. Patient is in a right upper extremity sling from previous fracture.. Historical: - Allergies: 10:10 Iodinated Contrast Media - IV Dye; ko1 10:10 Tegretol; ko1 10:10 trelegy; ko1 - Home Meds: 10:10 Home O2 - PRN [Active]; ko1 - PMHx: 10:10 breast cancer-right side; cervical cancer; COPD; Diabetes - NIDDM; Hypertension; Kidney ko1 stone; Myopathy; neuropathy; TIA; - PSHx: 10:10 mastectomy right; Total abdominal hysterectomy; ko1 - Immunization history:: Adult Immunizations unknown. - Infectious Disease History:: Denies. - Social history:: Smoking status: Patient/guardian denies using tobacco, but has a distant history of tobacco abuse. - History obtained from: EMS. ROS: 10:10 Constitutional: Negative for fever, chills, and weight loss, Cardiovascular: Negative ci for chest pain, palpitations, and edema, Respiratory: Negative for shortness of breath, cough, wheezing, and pleuritic chest pain, 10:10 Neuro: Positive for numbness, Negative for seizure activity, speech changes, weakness, Exam: 10:10 Constitutional: This is a well developed, well nourished patient who is awake, alert, ci and in no acute distress. Head/Face: Normocephalic, atraumatic. Eyes: Pupils equal round and reactive to light, extra-ocular motions intact. Lids and lashes normal. Conjunctiva and sclera are non-icteric and not injected. Cornea within normal limits. Periorbital areas with no swelling, redness, or edema. ENT: Nares patent. No nasal discharge, no septal abnormalities noted. Tympanic membranes are normal and external auditory canals are clear. Oropharynx with no redness, swelling, or masses, exudates, or evidence of obstruction, uvula midline. Mucous membranes moist. Neck: Trachea midline, no thyromegaly or masses palpated, and no cervical lymphadenopathy. Supple, full range of motion without nuchal rigidity, or vertebral point tenderness. No Meningismus. Chest/axilla: Normal chest wall appearance and motion. Nontender with no deformity. No lesions are appreciated. Cardiovascular: Regular rate and rhythm with a normal S1 and S2. No gallops, murmurs, or rubs. Normal PMI, no JVD. No pulse deficits. Respiratory: Lungs have equal breath sounds bilaterally, clear to auscultation and percussion. No rales, rhonchi or wheezes noted. No increased work of breathing, no retractions or nasal flaring. Abdomen/GI: Soft, non-tender, with normal bowel sounds. No distension or tympany. No guarding or rebound. No evidence of tenderness throughout. Skin: Warm, dry with normal turgor. Normal color with no rashes, no lesions, and no evidence of cellulitis. Neuro: Awake and alert, GCS 15, oriented to person, place, time, and situation. Cranial nerves II-XII grossly intact. Motor strength 5/5 in all extremities. Left upper extremity decreased sensation. Cerebellar exam normal. Normal gait. Vital Signs: 10:07 BP 156 / 65; Pulse 84; Resp 16; Temp 97; Pulse Ox 99% on R/A; ko1 10:15 BP 144 / 59; Pulse 83; Resp 16; Pulse Ox 99% on R/A; ko1 13:49 BP 121 / 69; Pulse 78; Resp 16; Pulse Ox 99% ; ko1 NIH Stroke Scale Scores: 10:10 NIHSS Score: 1 ci 10:38 NIHSS Score: 1 es3 MDM: 10:09 Medical Screening Exam initiated ci 10:10 Differential diagnosis: CVA, TIA, cervical radiculopathy, peripheral neuropathy, DKA, ci HHS, dehydration. Data reviewed: vital signs, nurses notes, EMS record, [facility] records, lab test result(s), finger stick glucose, CBC, EKG, radiologic studies, CT scan. I considered the following discharge prescriptions or medication management in the emergency department tPA/TNK was considered but KW greater than 6 hours, NIH 1. Historians other than the Patient: EMS: EMS reports hyperglycemia, patient breakfast this morning and was administered insulin at the [facility] prior to EMS arrival.. Care significantly affected by the following chronic conditions: Diabetes, Chronic Obstructive Pulmonary Disease. ED course: Presents for evaluation of left-sided numbness. NIH 1, stroke team activated. CTA head and neck was considered but patient is allergic to iodine. LKW greater than 6 hours. Found to be hyperglycemic glucose 423. DKA workup, she consult, hydrate with fluids, admit. 10:31 ED course: Discussed case with neurologist Dr. Agrawal, will obtain MRI/MRA head and ci neck, if MRI is negative, can admit here. If positive, patient still within the window for thrombectomy, will transfer.. 12/09 10:08 Order name: Basic Metabolic Panel; Complete Time: 12:06 ci 12/09 12:47 Interpretation: Abnormal: GLUC 464; Hyperglycemic, not AG, not in DKA. ci 12/09 10:08 Order name: CBC with Diff; Complete Time: 13:45 ci 12/09 11:04 Interpretation: Anemic Hgb 9. ci 12/09 10:08 Order name: High Sensitivity Troponin; Complete Time: 12:06 ci 12/09 10:08 Order name: Protime (+inr); Complete Time: 11:12 ci 12/09 10:08 Order name: Ptt, Activated; Complete Time: 11:12 ci 12/09 10:17 Order name: Glucose, Ancillary Testing; Complete Time: 11:04 EDMS 12/09 13:15 Order name: Glucose, Ancillary Testing; Complete Time: 13:16 EDMS 12/09 13:18 Order name: Manual Differential; Complete Time: 13:45 EDMS 12/09 14:19 Order name: Urinalysis w/ reflexes EDMS 12/09 14:19 Order name: CBC with Automated Diff EDMS 12/09 14:19 Order name: CBC with Automated Diff EDMS 12/09 14:19 Order name: Comprehensive Metabolic Panel EDMS 12/09 14:19 Order name: Comprehensive Metabolic Panel EDMS 12/09 14:19 Order name: Magnesium EDMS 12/09 14:19 Order name: Magnesium EDMS 12/09 10:08 Order name: CT Stroke Brain w/o Contrast; Complete Time: 11:04 ci 12/09 11:04 Interpretation: No acute disease: No ICH. ci 12/09 10:08 Order name: Stroke CXR 1 View; Complete Time: 11:12 ci 12/09 10:29 Order name: MRA Neck w/wo cont; Complete Time: 14:04 ci 12/09 11:43 Order name: MRA Head Wo Cont; Complete Time: 13:45 EDMS 12/09 12:47 Order name: Brain W/Wo Cont; Complete Time: 13:45 EDMS 12/09 10:08 Order name: EKG; Complete Time: 10:09 ci 12/09 14:19 Order name: Physical Therapy Consult EDMS 12/09 10:05 Order name: Accucheck; Complete Time: 10:05 ko 12/09 10:08 Order name: Accucheck; Complete Time: 10:22 ci 12/09 10:08 Order name: Cardiac monitoring; Complete Time: 10:22 ci 12/09 10:08 Order name: EKG - Nurse/Tech; Complete Time: 10:31 ci 12/09 10:08 Order name: IV Saline Lock; Complete Time: 10:52 ci 12/09 10:08 Order name: Labs collected and sent; Complete Time: 10:52 ci 12/09 10:08 Order name: NPO; Complete Time: 10:22 ci 12/09 10:08 Order name: O2 Per Protocol; Complete Time: 10:22 ci 12/09 10:08 Order name: O2 Sat Monitoring; Complete Time: 10:22 ci 12/09 10:08 Order name: Stroke Swallow Screen; Complete Time: 11:05 ci 12/09 12:07 Order name: Accucheck Blood Glucose; Complete Time: 12:58 ci Administered Medications: 13:37 Drug: Insulin Lispro Sub-Q 10 units Sub-Q once {Co-Signature: kc6 (Rose, Loretta ko1 RN).} Route: Sub-Q; Site: right lower abdomen; 14:07 Follow up: Response: No adverse reaction ko1 Point of Care Testing: Blood Glucose: 10:10 Blood Glucose: 423 mg/dL; ci Ranges: Critical Glucose Levels:Adult <50 mg/dl or >400 mg/dl <40 mg/dl or >180 mg/dl Disposition Summary: 12/10/23 14:03 Hospitalization Ordered Notes: Provider: Erik Feng Location: Telemetry/MedSurg (observation) ci Condition: Stable ci Problem: new ci Symptoms: are unchanged ci Bed/Room Type: Standard ci Hospitalization Status: Observation(12/10/23 14:03) ci Room Assignment: 218(12/10/23 14:47) ss Diagnosis - Other specified diabetes mellitus with hyperglycemia ci - Multifocal motor neuropathy - Acute Focal Neurological Deficit ci Forms: - Medication Reconciliation Form ci - SBAR form ci - Leadership Thank You Letter ci NIH Stroke Scale - NIH Stroke Score Date: 12/10/2023 Time: 10:10 Total Score = 1 10. Dysarthria (speech clarity - read or repeat words) - 0(Normal) 11. Extinction and Inattention (visual/tactile/auditory/spatial/personal) - 0(No abnormality) 1a. Level of Consciousness (LOC) - 0(Alert) 1b. Level of Consciousness (LOC) (Month \T\ Age) - 0(Both) 1c. LOC Commands (Open \T\ Closes Eyes/Cap Inspector) - 0(Both) 2. Best Gaze (Lateral Gaze Paresis) - 0(Normal) 3. Visual Field Loss - 0(No visual loss) 4. Facial Palsy - 0(Normal) 5a. Left Arm: Motor (10-second hold) - 0(No drift) 5b. Right Arm: Motor (10-second hold) - 0(No drift) 6a. Left Leg: Motor (5-second hold - always test supine) - 0(No drift) 6b. Right Leg: Motor (5-second hold - always test supine) - 0(No drift) 7. Limb Ataxia (finger/nose \T\ heel/hernandez - test with eyes open) - 0(Absent) 8. Sensory Loss (pinprick arms/legs/face) - 1(Mild to moderate loss) 9. Best Language: Aphasia (description/naming/reading) - 0(No aphasia) Initials: ci NIH Stroke Scale - NIH Stroke Score Date: 12/10/2023 Time: 10:38 Total Score = 1 10. Dysarthria (speech clarity - read or repeat words) - 0(Normal) 11. Extinction and Inattention (visual/tactile/auditory/spatial/personal) - 0(No abnormality) 1a. Level of Consciousness (LOC) - 0(Alert) 1b. Level of Consciousness (LOC) (Month \T\ Age) - 0(Both) 1c. LOC Commands (Open \T\ Closes Eyes/Cap Inspector) - 0(Both) 2. Best Gaze (Lateral Gaze Paresis) - 0(Normal) 3. Visual Field Loss - 0(No visual loss) 4. Facial Palsy - 0(Normal) 5a. Left Arm: Motor (10-second hold) - 0(No drift) 5b. Right Arm: Motor (10-second hold) - UN(Amputation, joint fusion) - Notes: right humerus fracture, in sling 6a. Left Leg: Motor (5-second hold - always test supine) - 0(No drift) 6b. Right Leg: Motor (5-second hold - always test supine) - 0(No drift) 7. Limb Ataxia (finger/nose \T\ heel/hernandez - test with eyes open) - 0(Absent) 8. Sensory Loss (pinprick arms/legs/face) - 1(Mild to moderate loss) 9. Best Language: Aphasia (description/naming/reading) - 0(No aphasia) Initials: es3 Signatures: Dispatcher [employer] EDMS Simran Kim bd Neena Parish RN RN ss Zita Agustin RN RN ko1 Simeon Ramirez Loretta Rose RN kc6 Corrections: (The following items were deleted from the chart) 10:17 10:08 Neck Angio+CT.RAD.BRZ ordered. EDMS EDMS 12:47 10:29 Brain Wo Cont+MRI.RAD.BRZ ordered. EDMS EDMS 12:47 12:47 Within normal limits: Hyperglycemic, no AG, not in DKA. ci ci 14:03 14:03 Inpatient Admission ci ci 14:39 14:03 ci bd 14:47 14:39 225 bd ss
--- NOTE | 2023-12-10 14:03 | ER ---
Nurse's Notes [facility] Name: Kiley Ortega Age: 78 yrs Sex: Female : 1945 Arrival Date: 12/10/2023 Time: 09:57 Bed 8 Private MD: Diagnosis: Other specified diabetes mellitus with hyperglycemia;Multifocal motor neuropathy-Acute Focal Neurological Deficit Presentation: 12/09 10:07 Chief complaint: EMS states: numbness and tingling to left arm this morning when she ko1 woke up about 4-430, blood sugar read "hi", patient took insulin as ordered this morning. Coronavirus screen: At this time, the client does not indicate any symptoms associated with coronavirus-19. Ebola Screen: No symptoms or risks identified at this time. Initial Sepsis Screen: Does the patient meet any 2 criteria? No. Patient's initial sepsis screen is negative. Does the patient have a suspected source of infection? No. Patient's initial sepsis screen is negative. Risk Assessment: Do you want to hurt yourself or someone else? Patient reports no desire to harm self or others. Onset of symptoms was December 10, 2023. Care prior to arrival: IV initiated. unsuccessful blood sugar read "HI". 10:07 Method Of Arrival: EMS: [facility] ko1 10:07 Acuity: SHELLEY 2 ko1 Triage Assessment: 10:10 General: Appears in no apparent distress. Behavior is calm, cooperative, appropriate ko1 for age. Pain: Complains of pain in right arm and left arm. Historical: - Allergies: 10:10 Iodinated Contrast Media - IV Dye; ko1 10:10 Tegretol; ko1 10:10 trelegy; ko1 - Home Meds: 10:10 Home O2 - PRN [Active]; ko1 - PMHx: 10:10 breast cancer-right side; cervical cancer; COPD; Diabetes - NIDDM; Hypertension; Kidney ko1 stone; Myopathy; neuropathy; TIA; - PSHx: 10:10 mastectomy right; Total abdominal hysterectomy; ko1 - Immunization history:: Adult Immunizations unknown. - Infectious Disease History:: Denies. - Social history:: Smoking status: Patient/guardian denies using tobacco, but has a distant history of tobacco abuse. - History obtained from: EMS. Screenin:15 [facility] ED Fall Risk Assessment (Adult) History of falling in the last 3 months, ko1 including since admission Yes- single mechanical fall (1 pt) Confusion or Disorientation No (0 pts) Intoxicated or Sedated No (0 pts) Impaired Gait No (0 pts) Mobility Assist Device Used No (0 pt) Altered Elimination No (0 pt) Score/Fall Risk Level 0 - 2 = Low Risk Oriented to surroundings, Maintained a safe environment, Educated pt \\T\\ family on fall prevention, incl call for assistance when getting out of bed, Assessed \\T\\ reinforced patient's understanding of fall precautions, Hourly rounding (assess needs \\T\\ fall precautionary measures) done. Abuse screen: Denies threats or abuse. Denies injuries from another. Nutritional screening: No deficits noted. Tuberculosis screening: No symptoms or risk factors identified. 10:38 VAN Screening: Arm Drift: Patient shows no arm weakness. Patient is VAN negative. es3 Visual Disturbance: No visual disturbance noted. Aphasia: No aphasia noted. Neglect: No neglect noted. 10:40 Muse Swallow Protocol Exclusion Criteria: Exclusion Criteria Result: Proceed Brief es3 Cognitive Screen What is your name? Normal, Where are you right now? Normal, What year is it? Normal. Oral Mechanism Examination Facial Symmetry: Normal, Motion: Normal, Lip Closure: Normal, Oral Mechanism Result: Normal. 3 oz Water Swallow Challenge: Pt able to drink all water without stopping, coughing, choking or throat clearing: Yes Result: PASS MD Notified: Simeon Ramirez. Assessment: 11:13 Reassessment: difficult lab stick, labs delayed. Can only use left arm, needed US ko1 guided. Vital Signs: 10:07 BP 156 / 65; Pulse 84; Resp 16; Temp 97; Pulse Ox 99% on R/A; ko1 10:15 BP 144 / 59; Pulse 83; Resp 16; Pulse Ox 99% on R/A; ko1 13:49 BP 121 / 69; Pulse 78; Resp 16; Pulse Ox 99% ; ko1 NIH Stroke Scale Scores: 10:10 NIHSS Score: 1 ci 10:38 NIHSS Score: 1 es3 ED Course: 10:01 Patient arrived in ED. ko1 10:05 Zita Agustin, YUNIOR is Primary Nurse. ko1 10:07 Iheonunekwu, Chizite is Attending Physician. ci 10:10 Triage completed. ko1 10:10 Arm band placed on right wrist. Patient placed in an exam room, on a stretcher, on ko1 monitoring manager, on pulse oximetry, Patient notified of wait time. 10:15 Patient has correct armband on for positive identification. Allergy band placed. Fall ko1 risk band placed. Placed in gown. Bed in low position. Call light in reach. Side rails up X2. Provided Education on: labs. Client placed on continuous cardiac and pulse oximetry monitoring. NIBP monitoring applied. threat monitoring analyst on. Door closed. Noise minimized. Lights dimmed. Warm blanket given. Pillow given. 10:20 CT Stroke Brain w/o Contrast In Process Unspecified. EDMS 10:38 Stroke CXR 1 View In Process Unspecified. EDMS 10:54 Initial lab(s) drawn, by me, sent to lab. Accessed peripheral vein via ultrasound, cm10 utilizing dynamic ultrasound technique Blood collected. Clean \\T\\ dry. Dressing intact. Good blood return. Flushes easily. 20g left upper arm. 11:05 Basic Metabolic Panel Sent. ko1 11:05 High Sensitivity Troponin Sent. ko1 11:05 Protime (+inr) Sent. ko1 11:05 Ptt, Activated Sent. ko1 11:15 No provider procedures requiring assistance completed. ko1 11:20 Notified ED physician of a critical lab result(s). glucose 464. ll1 11:46 Patient moved to MRI via stretcher. ko1 12:58 Patient moved back from MRI. ko1 13:02 MRA Neck w/wo cont In Process Unspecified. EDMS 13:02 MRA Head Wo Cont In Process Unspecified. EDMS 13:02 Brain W/Wo Cont In Process Unspecified. EDMS 13:04 bgl 365. rs6 13:24 Assisted to bathroom. Assisted to bedside commode. Repositioned patient. rs6 14:03 Erik Feng MD is Hospitalizing Provider. ci 14:32 Patient admitted, IV remains in place. ko1 16:06 1606 CM attempted initial assessment, patient lying in bed with eyes closed, ane respirations even and unlabored. Patient awake briefly to meet with CM. Patient identified by name and . Unable to confirm address, patient states her son should be contacted about her new address and any other information needed. 1740 CM reached out to patient's son Zakcary Pugh at [phone], and left voicemail message. 1745 CM spoke with Zackary Pugh via telephone. Zackary reports lives at [facility]. He states she uses a wheelchair to perform ADLs with assistance ever since her fall that resulted in a right "arm fracture" . Patient can no longer use a walker since the arm Fx. No home oxygen, no HH. Zackary states he believes there is and MPOA in place and will look for it at his residence. Patient's PCP is Dr. Tomas Cohen. The plan for discharge is for patient to return to [facility] upon discharge. CM team will continue to follow and coordinate care during this hospital stay. Administered Medications: 13:37 Drug: Insulin Lispro Sub-Q 10 units Sub-Q once {Co-Signature: kc6 (Loretta Rose RN).} Route: Sub-Q; Site: right lower abdomen; 14:07 Follow up: Response: No adverse reaction ko1 Medication: 10:15 VIS not applicable for this client. ko1 Point of Care Testing: Blood Glucose: 10:10 Blood Glucose: 423 mg/dL; ci Ranges: Outcome: 14:03 Decision to Hospitalize by Provider. ci 14:32 Condition: stable ko1 14:32 Instructed on the need for admit, 16:44 Patient left the ED. ll1 NIH Stroke Scale - NIH Stroke Score Date: 12/10/2023 Time: 10:10 Total Score = 1 10. Dysarthria (speech clarity - read or repeat words) - 0(Normal) 11. Extinction and Inattention (visual/tactile/auditory/spatial/personal) - 0(No abnormality) 1a. Level of Consciousness (LOC) - 0(Alert) 1b. Level of Consciousness (LOC) (Month \\T\\ Age) - 0(Both) 1c. LOC Commands (Open \\T\\ Closes Eyes/Leadership Development Manager) - 0(Both) 2. Best Gaze (Lateral Gaze Paresis) - 0(Normal) 3. Visual Field Loss - 0(No visual loss) 4. Facial Palsy - 0(Normal) 5a. Left Arm: Motor (10-second hold) - 0(No drift) 5b. Right Arm: Motor (10-second hold) - 0(No drift) 6a. Left Leg: Motor (5-second hold - always test supine) - 0(No drift) 6b. Right Leg: Motor (5-second hold - always test supine) - 0(No drift) 7. Limb Ataxia (finger/nose \\T\\ heel/hernandez - test with eyes open) - 0(Absent) 8. Sensory Loss (pinprick arms/legs/face) - 1(Mild to moderate loss) 9. Best Language: Aphasia (description/naming/reading) - 0(No aphasia) Initials: rufina NIH Stroke Scale - NIH Stroke Score Date: 12/10/2023 Time: 10:38 Total Score = 1 10. Dysarthria (speech clarity - read or repeat words) - 0(Normal) 11. Extinction and Inattention (visual/tactile/auditory/spatial/personal) - 0(No abnormality) 1a. Level of Consciousness (LOC) - 0(Alert) 1b. Level of Consciousness (LOC) (Month \\T\\ Age) - 0(Both) 1c. LOC Commands (Open \\T\\ Closes Eyes/Leadership Development Manager) - 0(Both) 2. Best Gaze (Lateral Gaze Paresis) - 0(Normal) 3. Visual Field Loss - 0(No visual loss) 4. Facial Palsy - 0(Normal) 5a. Left Arm: Motor (10-second hold) - 0(No drift) 5b. Right Arm: Motor (10-second hold) - UN(Amputation, joint fusion) - Notes: right humerus fracture, in sling 6a. Left Leg: Motor (5-second hold - always test supine) - 0(No drift) 6b. Right Leg: Motor (5-second hold - always test supine) - 0(No drift) 7. Limb Ataxia (finger/nose \\T\\ heel/hernandez - test with eyes open) - 0(Absent) 8. Sensory Loss (pinprick arms/legs/face) - 1(Mild to moderate loss) 9. Best Language: Aphasia (description/naming/reading) - 0(No aphasia) Initials: es3 Signatures: Dispatcher [employer] EDYariel Riggins RN RN ll1 Zita Agustin RN RN ko1 Kristin Blas RN RN cm10 Simeon Ramirez Jessi Roberts RN RN es3 Aleyda Lyons RN RN ane Aly Dickens rs6 Loretta Rose RN kc6
[2023-12-10] MEDS ORDERED: ONDANSETRON 4 MG/2 ML VIAL IV PRN (14:15)
--- NOTE | 2023-12-10 14:32 | P.HP ---
Certification for Inpatient Patient admitted to: Inpatient Patient will require the following post-hospital care: Home Health Services Practitioner: I am a practitioner with admitting privileges, knowledge of patient current condition, hospital course, and medical plan of care. Services: Services provided to patient in accordance with Admission requirements found in Title 42 Section 412.3 of the Code of Federal Regulations Patient History Date of Service: 12/10/23 Allergies carbamazepine [From Tegretol] Allergy (Intermediate, Verified 09/03/23 08:08) Hives/Rash Iodinated Contrast Media [IV Dye, Iodine Containing Contrast ] Allergy (Intermediate, Verified 09/03/23 08:08) Hives Home Medications: Atorvastatin Calcium [Lipitor*] 20 mg PO BEDTIME tab 06/01/19 Apixaban [Eliquis] 5 mg PO BID 10/24/22 Metoprolol Tartrate [Lopressor*] 25 mg PO DAILY 10/24/22 Amlodipine [Norvasc*] 1 tab PO DAILY 09/03/23 Empagliflozin/Metformin HCl [Synjardy Xr 25-1,000 mg Tablet] 1 tab PO DAILY 09/03/23 Fluoxetine HCl 1 tab PO DAILY 09/03/23 Insulin Glargine/Lixisenatide [Soliqua 100 Unit-33 Mcg/ml Pen] 60 mg SQ DAILY 09/03/23 Losartan/Hydrochlorothiazide [Losartan-Hctz 100-12.5 mg Tab] 1 tab PO DAILY 09/03/23 Omeprazole 20 mg PO DAILY 09/03/23 Pregabalin 2 tab PO BID 09/03/23 buPROPion HCL [Bupropion HCl Sr] 1 tab PO DAILY 09/03/23 Trazodone [Desyrel*] 50 mg PO BEDTIME PRN PRN 11/11/23 traMADol HCL [Ultram*] 50 mg PO Q6H PRN tab 11/11/23 Albuterol Neb [Proventil 0.083% Neb Soln] 2.5 mg NEB [id number] amp 11/14/23 Pregabalin [Lyrica] 300 mg PO BID cap 11/14/23 - Past Medical/Surgical History Diabetic: Yes -: dm -: htn -: cva -: copd -: COPD -: BREAST AND CERVICAL CA -: ANEMIA -: DEPRESSION/ANXIETY -: HEADACHES -: Bladder Suspension sx 4 -: Left Ankle Surgery -: Stomach surgery (ureter sx) -: Breast biopsy -: appy -: hysterectomy Psychosocial/ Personal History: Patient lives at home alone. - Family History Father -: Hypertension, Stroke Mother -: Hypertension, Diabetes - Social History Alcohol use: No CD- Drugs: No Caffeine use: Yes Physical Examination - Studies Laboratory Data (last 24 hrs) 12/10/23 12/10/23 12/10/23 10:51 10:51 10:51 WBC 7.00 Hgb 9.0 L Hct 30.3 L Plt Count 296 PT 12.4 INR 1.11 APTT 38.5 H Sodium 135 L Potassium 4.2 BUN 11 Creatinine 0.72 Glucose 464 H* Assessment and Plan - Advance Directives Does patient have a Living Will: No Does patient have a Durable POA for Healthcare: No
--- NOTE | 2023-12-10 15:44 | P.HP ---
Certification for Inpatient Patient admitted to: Observation With expected LOS: <2 Midnights Patient will require the following post-hospital care: None Practitioner: I am a practitioner with admitting privileges, knowledge of patient current condition, hospital course, and medical plan of care. Services: Services provided to patient in accordance with Admission requirements found in Title 42 Section 412.3 of the Code of Federal Regulations Patient History Date of Service: 12/10/23 Reason for admission: Left-sided numbness History of Present Illness: Patient 78-year-old female who came to the hospital with left-sided numbness. Patient has had multiple falls and has a right humeral fracture. She has moved to would like to live there. She was following up with Dr. Franco, but states she goes and sees Dr. Cohen. Patient had some sudden numbness of that left side and because of her history of CVA she was seen in the ER. In the ER her blood pressure has been stable and her neurostatus is stable. At this time, we will admit her for observation. If she does well can plan to send her back to [place] over the next 6 to 12 hours. Allergies carbamazepine [From Tegretol] Allergy (Intermediate, Verified 09/03/23 08:08) Hives/Rash Iodinated Contrast Media [IV Dye, Iodine Containing Contrast ] Allergy (Intermediate, Verified 09/03/23 08:08) Hives Home Medications: Atorvastatin Calcium [Lipitor*] 20 mg PO BEDTIME tab 06/01/19 Apixaban [Eliquis] 5 mg PO BID 10/24/22 Metoprolol Tartrate [Lopressor*] 25 mg PO DAILY 10/24/22 Amlodipine [Norvasc*] 1 tab PO DAILY 09/03/23 Empagliflozin/Metformin HCl [Synjardy Xr 25-1,000 mg Tablet] 1 tab PO DAILY 09/03/23 Fluoxetine HCl 1 tab PO DAILY 09/03/23 Insulin Glargine/Lixisenatide [Soliqua 100 Unit-33 Mcg/ml Pen] 60 mg SQ DAILY 09/03/23 Losartan/Hydrochlorothiazide [Losartan-Hctz 100-12.5 mg Tab] 1 tab PO DAILY 09/03/23 Omeprazole 20 mg PO DAILY 09/03/23 Pregabalin 2 tab PO BID 09/03/23 buPROPion HCL [Bupropion HCl Sr] 1 tab PO DAILY 09/03/23 Trazodone [Desyrel*] 50 mg PO BEDTIME PRN PRN 11/11/23 traMADol HCL [Ultram*] 50 mg PO Q6H PRN tab 11/11/23 Albuterol Neb [Proventil 0.083% Neb Soln] 2.5 mg NEB [id number] amp 11/14/23 Pregabalin [Lyrica] 300 mg PO BID cap 11/14/23 - Past Medical/Surgical History Diabetic: Yes -: dm -: htn -: cva -: copd -: COPD -: BREAST AND CERVICAL CA -: ANEMIA -: DEPRESSION/ANXIETY -: HEADACHES -: Bladder Suspension sx 4 -: Left Ankle Surgery -: Stomach surgery (ureter sx) -: Breast biopsy -: appy -: hysterectomy Psychosocial/ Personal History: Patient lives at home alone. - Family History Father -: Hypertension, Stroke Mother -: Hypertension, Diabetes - Social History Smoking Status: Former smoker Alcohol use: No CD- Drugs: No Caffeine use: Yes Review of Systems 10-point ROS is otherwise unremarkable Physical Examination - Vital Signs Temperature: 98 F Blood Pressure: 140/80 Pulse: 80 Respirations: 18 Pulse Ox (%): 95 - Physical Exam General: Alert, In no apparent distress, Oriented x3 HEENT: Atraumatic, PERRLA, Mucous membr. moist/pink, EOMI, Sclerae nonicteric Neck: Supple, 2+ carotid pulse no bruit, No LAD, Without JVD or thyroid abnormality Respiratory: Clear to auscultation bilaterally, Normal air movement Cardiovascular: Regular rate/rhythm, Normal S1 S2 Gastrointestinal: Normal bowel sounds, Soft and benign, Non-distended, No tenderness Musculoskeletal: No clubbing, No swelling, No tenderness Integumentary: No rashes Neurological: Normal gait, Normal speech, Normal strength at 5/5 x4 extr, Normal tone, Sensation intact, Cranial nerves 3-12 intact, Normal affect Lymphatics: No axilla or inguinal lymphadenopathy - Studies Laboratory Data (last 24 hrs) 12/10/23 12/10/23 12/10/23 10:51 10:51 10:51 WBC 7.00 Hgb 9.0 L Hct 30.3 L Plt Count 296 PT 12.4 INR 1.11 APTT 38.5 H Sodium 135 L Potassium 4.2 BUN 11 Creatinine 0.72 Glucose 464 H* Assessment and Plan - Problems (Diagnosis) (1) Numbness Current Visit: Yes Status: Acute (2) COPD (chronic obstructive pulmonary disease) Current Visit: No Status: Chronic Qualifiers: COPD type: unspecified COPD Qualified Code(s): J44.9 - Chronic obstructive pulmonary disease, unspecified (3) Diabetes mellitus type 2 Current Visit: No Status: Chronic (4) History of atrial fibrillation Current Visit: No Status: Chronic (5) Hypertension Current Visit: No Status: Chronic Qualifiers: Hypertension type: primary hypertension Qualified Code(s): I10 - Essential (primary) hypertension - Plan Plan: 1. MRI of the brain completed. This was unremarkable. Patient with a history of prior stroke. Will continue monitoring. May need MRI of the C-spine. She has had falls and she could have a cervical spine injury. Will monitor her electrolytes and also check a B12 level. Will check her LFTs as well. Anticipate discharge over the next 24 hours if she remains stable. At this time patient will be admitted for observation. Discharge Plan: Home Plan to discharge in: 24 Hours - Advance Directives Does patient have a Living Will: No Does patient have a Durable POA for Healthcare: No - Code Status/Comfort Care Code Status Assessed: Yes Code Status: Full Code Critical Care: No Time Spent Managing Pts Care (In Minutes): 45
[2023-12-10 16:59] VITALS: BMI 34.2
[2023-12-10 19:09] LABS: Specific Gravity 1.017 (1.005-1.030); Sqamous Epithelial <5 /HPF (None Seen); Urine Bacteria None Seen /HPF (<20); Urine Bilirubin NEGATIVE (Negative); Urine Blood Negative (Negative); Urine Clarity Extremely Turbid (Clear); Urine Color Light-Yellow (Yellow); Urine Culture Reflex Order NOT NEEDED; Urine Glucose 4+ (Over) (Negative); Urine Ketones NEGATIVE (Negative); Urine Microscopic Reflex YN ORDER UMIC; Urine Nitrite NEGATIVE (Negative); Urine Protein NEGATIVE (Negative); Urine RBC <5 /HPF (None Seen); Urine Urobilinogen Normal (Normal); Urine WBC <5 /HPF (<5); Urine WBC Clump Rare /HPF (None Seen); Urine pH 6.5 (5.0-7.0)
[2023-12-11] MEDS: INSULIN LISPRO 100 UNIT/1 ML SQ SCH (00:04)
[2023-12-11] MEDS: ACETAMINOPHEN 500 MG TAB PO PRN (05:00)
[2023-12-11 07:37] LABS: Absolute Basophils 0.1 K/uL (0-0.5); Absolute Eosinophils 0.3 K/uL (0-0.5); Absolute Lymphocytes (CBC) 2.7 K/uL (0.7-4.9); Absolute Monocytes 0.7 K/uL (0.1-1.3); Absolute Neutrophil 3.7 K/uL (1.8-8.0); Basophils % 0.7 % (0-1.3); Eosinophils % 3.7 % (0-4.4); Hematocrit 30.8 % (36.0-45.0); Hemoglobin 9.3 g/dL (12.0-15.0); Lymphocytes % 36.1 % (15.3-44.8); MCH 21.5 pg (27.0-35.0); MCHC 30.2 g/dL (32.0-36.0); MCV 71.3 fL (80-100); MPV 8.4 fL (7.6-11.3); Monocytes % 9.5 % (3.3-12.3); Nucleated Red Blood Cells % 0.1 % (0-0); Platelets 308 thou/uL (152-406); RBC Red Blood Cell Count 4.32 M/uL (3.86-4.86); Red Cell Distribution Width 19.2 % (12.1-15.2)
[2023-12-11 07:45] LABS: Albumin 2.9 g/dL (3.4-5.0); Albumin/Globulin Ratio 0.8 (1.1-1.8); Anion Gap 9.7 mEq/L (5.0-15.0); Bilirubin Total 0.3 mg/dL (0.2-1.0); Globulin 3.6 g/dL (2.3-3.5); Magnesium 1.7 mg/dL (1.6-2.4); Potassium 3.7 mEq/L (3.5-5.1); Protein, Total 6.5 g/dL (6.4-8.2)
[2023-12-11] MEDS: ENOXAPARIN 40 MG/0.4 ML SQ SCH (08:57)
--- NOTE | 2023-12-11 11:10 | EKG ---
Test Date: 2023-12-10 Test Time: 10:28:20 Application Dba: REBEKA MEASUREMENT RESULTS: Intervals: Rate: 83 [place]: 190 QRSD: 82 QT: 394 QTc: 462 [place]: P: 85 [place]: 190 QRS: 60 T: 58 INTERPRETIVE STATEMENTS: Normal sinus rhythm Normal ECG Compared to ECG 09/03/2023 06:51:03 No significant changes Electronically Signed On 12-11-23 11:07:54 CDT by Heledr Starkey
[2023-12-11 12:06] VITALS: O2SAT 96
[2023-12-11] MEDS: CODEINE 30MG/APAP 300MG TAB PO PRN (14:06)
[2023-12-11 15:07] VITALS: BP 143/53; TEMP 98.7
== END 2023-12-11 17:45 ==
LOC: ER 09:57 → ERHOLD 14:13 → 2ND 16:03
PROVIDERS: ADMIT Hospitalist; ATTEND Hospitalist
DX: R20.0 Anesthesia of skin (principal); G61.82 Multifocal motor neuropathy; R29.818 Other symptoms and signs involving the nervous system; E13.65 Other specified diabetes mellitus with hyperglycemia; J44.9 Chronic obstructive pulmonary disease, unspecified; I10 Essential (primary) hypertension; I48.11 Longstanding persistent atrial fibrillation; S42.301D Unspecified fracture of shaft of humerus, right arm, subsequent encounter for fracture with routine healing; Z91.81 History of falling; Z87.891 Personal history of nicotine dependence; Z86.73 Personal history of transient ischemic attack (TIA), and cerebral infarction without residual deficits; Z85.3 Personal history of malignant neoplasm of breast; Z85.41 Personal history of malignant neoplasm of cervix uteri; Z88.8 Allergy status to other drugs, medicaments and biological substances
CPT/HCPCS: 36415; 70450; 70544; 70549; 70553; 71045; 80048; 80053; 81001; 82947; 83735; 84484; 85025; 85610; 85730; 93005; 97116; 97161; A9577; G0378; J1650

== ENCOUNTER 2024-01-20 09:08 | Emergency (ER) | payer OTHER ==
[2024-01-20] MEDS ORDERED: METHYLPREDNISOLONE 125 MG INJ ONE (09:49)
[2024-01-20] MEDS ORDERED: IPRATROPIUM BROM 0.5MG/2.5ML ONE (09:49)
[2024-01-20] MEDS ORDERED: ALBUTEROL 2.5 MG/3 ML NEB SOL ONE (09:49)
[2024-01-20 10:27] LABS: PT Prothrombin Time 18.2 SECONDS (9.4-12.5); Protime INR 1.65
[2024-01-20 11:14] LABS: Absolute Basophils 0.1 K/uL (0-0.5); Absolute Eosinophils 0.2 K/uL (0-0.5); Absolute Lymphocytes (CBC) 1.7 K/uL (0.7-4.9); Absolute Monocytes 0.8 K/uL (0.1-1.3); Absolute Neutrophil 3.1 K/uL (1.8-8.0); Basophils % 0.9 % (0-1.3); Eosinophils % 2.8 % (0-4.4); Lymphocytes % 28.7 % (15.3-44.8); MCH 20.4 pg (27.0-35.0); MCHC 29.2 g/dL (32.0-36.0); MCV 70.1 fL (80-100); MPV 7.9 fL (7.6-11.3); Monocytes % 13.9 % (3.3-12.3); Neutrophils % 53.7 % (41.7-73.7); Platelets 284 thou/uL (152-406); RBC Red Blood Cell Count 4.43 M/uL (3.86-4.86); Red Cell Distribution Width 20.6 % (12.1-15.2)
[2024-01-20 11:35] LABS: ALT/SGPT 15 U/L (13-56); AST/SGOT 15 U/L (15-37); Albumin 2.9 g/dL (3.4-5.0); Albumin/Globulin Ratio 0.7 (1.1-1.8); Alkaline Phosphatase 135 U/L (45-117); Anion Gap 8.8 mEq/L (5.0-15.0); BUN Blood Urea Nitrogen 15 mg/dL (7-18); Bicarbonate 26 mEq/L (21-32); Bilirubin Total 0.3 mg/dL (0.2-1.0); Glomerular Filtration Rate 53 ml/min (=/>90); Glucose Level 264 mg/dL (74-106); Magnesium 1.7 mg/dL (1.6-2.4); NT PRO-BNP 370 pg/mL (<450); Potassium 3.8 mEq/L (3.5-5.1); Protein, Total 6.9 g/dL (6.4-8.2); Sodium Level 136 mEq/L (136-145); Troponin High Sensitivity 6.5 pg/mL (<58.9)
[2024-01-20 11:36] LABS: Bilirubin Direct < 0.2 mg/dL (0-0.2); Bilirubin Indirect, Calculated 0.1 mg/dL (0.2-0.8)
--- NOTE | 2024-01-20 11:46 | RAD REPORT ---
EXAMINATION: ONE VIEW CHEST XR CLINICAL INDICATION: Female, 78 years old.,COPD TECHNIQUE: Frontal chest projection is submitted. Examination is limited by patient positioning and t echnique. COMPARISON: 12/24/2023 FINDINGS: The lungs are diffusely emphysematous but grossly clear. No pneumothorax or sizable effusion. The he art is normal in size. Mediastinal contours are unremarkable. IMPRESSION: No acute intrathoracic abnormalities.
--- NOTE | 2024-01-20 11:56 | EDPHYS ---
Physician Documentation [facility] Name: Kiley Ortega Age: 78 yrs Sex: Female : 1945 Arrival Date: 01/20/2024 Time: 09:08 Bed 8 Private MD: ED Physician Francy Mejia HPI: 01/19 09:32 This 78 yrs old Female presents to ER via Unassigned with complaints of cough and sp3 shortness of breath. 09:32 78-year-old female with history of COPD, diastolic dysfunction, hypertension, diabetes sp3 now presents by EMS from [facility] for acute COPD exacerbation type symptoms including cough and shortness of breath. EMS reports that nursing facility gave 2 nebulizers which did not significantly help and therefore activated them to transport her here. Patient denies any fever, headache, chest pain, back pain, abdominal pain, nausea, vomit, diarrhea, or any other signs or symptoms on ROS at this time.. Historical: - Allergies: 09:37 Iodinated Contrast Media - IV Dye; db 09:37 Tegretol; db 09:37 trelegy; db - PMHx: 09:37 breast cancer-right side; cervical cancer; COPD; Diabetes - NIDDM; Hypertension; Kidney db stone; Myopathy; neuropathy; TIA; - PSHx: 09:37 mastectomy right; Total abdominal hysterectomy; db - Immunization history:: Adult Immunizations unknown. - Infectious Disease History:: Denies. - Social history:: Smoking status: Patient denies any tobacco usage or history of. ROS: 09:33 Constitutional: Negative for fever, chills, and weight loss, Eyes: Negative for injury, sp3 pain, redness, and discharge, Neck: Negative for injury, pain, and swelling, Cardiovascular: Negative for chest pain, palpitations, and edema, Abdomen/GI: Negative for abdominal pain, nausea, vomiting, diarrhea, and constipation, Back: Negative for injury and pain, : Negative for injury, bleeding, discharge, and swelling, MS/Extremity: Negative for injury and deformity, Skin: Negative for injury, rash, and discoloration, Neuro: Negative for headache, weakness, numbness, tingling, and seizure, Psych: Negative for depression, anxiety, suicide ideation, homicidal ideation, and hallucinations, Allergy/Immunology: Negative for hives, rash, and allergies, Endocrine: Negative for neck swelling, polydipsia, polyuria, polyphagia, and marked weight changes, 09:33 All other systems are negative, Exam: 09:33 Constitutional: This is a well developed, well nourished patient who is awake, alert, sp3 and in no acute distress. Head/Face: Normocephalic, atraumatic. Eyes: Pupils equal round and reactive to light, extra-ocular motions intact. Lids and lashes normal. Conjunctiva and sclera are non-icteric and not injected. Cornea within normal limits. Periorbital areas with no swelling, redness, or edema. Neck: Trachea midline, no thyromegaly or masses palpated, and no cervical lymphadenopathy. Supple, full range of motion without nuchal rigidity, or vertebral point tenderness. No Meningismus. Chest/axilla: Normal chest wall appearance and motion. Nontender with no deformity. No lesions are appreciated. Cardiovascular: Regular rate and rhythm with a normal S1 and S2. No gallops, murmurs, or rubs. Normal PMI, no JVD. No pulse deficits. Abdomen/GI: Soft, non-tender, with normal bowel sounds. No distension or tympany. No guarding or rebound. No evidence of tenderness throughout. Back: No spinal tenderness. No costovertebral tenderness. Full range of motion. Skin: Warm, dry with normal turgor. Normal color with no rashes, no lesions, and no evidence of cellulitis. MS/ Extremity: Pulses equal, no cyanosis. Neurovascular intact. Full, normal range of motion. Neuro: Awake and alert, GCS 15, oriented to person, place, time, and situation. Cranial nerves II-XII grossly intact. Motor strength 5/5 in all extremities. Sensory grossly intact. Cerebellar exam normal. Normal gait. Psych: Awake, alert, with orientation to person, place and time. Behavior, mood, and affect are within normal limits. 09:33 Respiratory: Room air pulse oxygenation between 89 and 90% which comes up to 97% on 2 L. Patient has acute wheezing both inspiratory and expiratory with coarse breath sounds and rhonchi overlaying. Increased respiratory rate between 20 and 24 noted. Mild accessory muscle use as well., 10:14 ECG was reviewed by the Attending Physician. EKG demonstrates normal sinus rhythm at 87 sp3 bpm with normal intervals, normal QRS, normal axis and nonspecific ST/T changes without evidence of acute ischemia. Vital Signs: 09:29 BP 132 / 60; Pulse 90; Resp 20; Temp 98.3(O); Pulse Ox 91% on R/A; Weight 85.28 kg; db Height 5 ft. 2 in. ; 09:35 BP 117 / 60; Pulse 86; Resp 16; Pulse Ox 97% on R/A; db 10:30 BP 123 / 41; Pulse 90; Resp 17; Pulse Ox 95% on 2 lpm NC; db 12:00 BP 123 / 49; Pulse 78; Resp 18; Pulse Ox 95% ; db 13:30 BP 134 / 49; Pulse 79; Resp 16; Pulse Ox 99% 2 lpm ; db 09:29 Body Mass Index 34.39 (85.28 kg, 157.48 cm) db 09:29 PT PLACED ON NC 2 L O2 INCREASED TO 95% db MDM: 09:24 Medical Screening Exam initiated sp3 09:33 Data reviewed: vital signs, nurses notes, lab test result(s), EKG, radiologic studies. sp3 ED course: 78-year-old female with shortness of breath. Differential diagnosis include COPD exacerbation, CHF, acute coronary syndrome, pneumonia, bronchitis, viral illness, among others. I am not highly suspicious of sepsis, shock, vascular pathology or any other critical process at this time. Workup will include EKG, chest x-ray, labs and supportive care with steroids, antibiotics and nebulizers as needed. Probable admission unless significant change in current status.. 12 09:34 Order name: Basic Metabolic Panel; Complete Time: 11:39 sp3 01/19 09:34 Order name: CBC with Diff; Complete Time: 12:16 sp3 01/19 09:34 Order name: LFT's; Complete Time: 11:39 sp3 01/19 09:34 Order name: Magnesium; Complete Time: 11:39 sp3 01/19 09:34 Order name: NT PRO-BNP; Complete Time: 11:39 sp3 01/19 09:34 Order name: PT-INR; Complete Time: 10:51 sp3 01/19 09:34 Order name: Troponin HS; Complete Time: 11:39 sp3 12 12:14 Order name: CBC Smear Scan; Complete Time: 12:16 EDMS 01/19 09:34 Order name: XRAY Chest (1 view); Complete Time: 11:48 sp3 01/19 09:34 Order name: EKG; Complete Time: 09:35 sp3 01/19 09:34 Order name: Cardiac monitoring; Complete Time: 11:10 sp3 01/19 09:34 Order name: EKG - Nurse/Tech; Complete Time: 10:12 sp3 01/19 09:34 Order name: IV Saline Lock; Complete Time: 11:06 sp3 01/19 09:34 Order name: Labs collected and sent; Complete Time: 10:12 sp3 01/19 09:34 Order name: O2 Per Protocol; Complete Time: 09:45 sp3 01/19 09:34 Order name: O2 Sat Monitoring; Complete Time: 09:45 sp3 01/19 10:29 Order name: Labs - recollect needed: recollect green and lavender top; Complete Time: bd 11:06 Administered Medications: 09:54 Drug: DuoNeb Nebulize (3:1) (2.5 mg - 0.5 mg) 3 ml Nebulizer once Route: Nebulizer; db 11:10 Follow up: Response: No adverse reaction db 11:05 Drug: MethylPrednisoLONE IVP 125 mg IVP once Route: IVP; Site: left antecubital; db 14:15 Follow up: Response: No adverse reaction db Disposition Summary: 01/20/24 11:55 Discharge Ordered Notes: Location: Home sp3 Condition: Stable sp3 Diagnosis - COPD exacerbation, shortness of breath, dyspnea sp3 Followup: sp3 - With: Private Physician - When: Upon discharge from the Emergency Department - Reason: Continuance of care Discharge Instructions: - Discharge Summary Sheet sp3 - Living With COPD sp3 Forms: - Medication Reconciliation Form sp3 - Antibiotic Education sp3 - Prescription Opioid Use sp3 - Patient Portal Instructions sp3 - Leadership Thank You Letter sp3 Prescriptions: - Zithromax Z-Kaz 250 mg Oral Tablet - take 1 tablet ORAL route as directed for 5 days Day 1 - take two (2) tablets sp3 one time. Day 2, 3, 4 , 5 take one (1) tablet once daily.; 6 tablet; Refills: 0, Product Selection Permitted - Prednisone 20 mg Oral Tablet - take 2 tablets ORAL route once daily for 5 days; 10 tablet; Refills: 0, Product sp3 Selection Permitted Signatures: Dispatcher [facility] Simran Cristobal Setul, MD MD sp3 Kristel Morales, RN RN db
--- NOTE | 2024-01-20 11:56 | ER ---
Nurse's Notes [facility] Name: Kiley Ortega Age: 78 yrs Sex: Female : 1945 Arrival Date: 01/20/2024 Time: 09:08 Bed 8 Private MD: Diagnosis: COPD exacerbation, shortness of breath, dyspnea Presentation: 01/19 09:29 Chief complaint: EMS states: COUGH, SOB STARTED FRIDAY. HX OF COPD. FROM [facility]. PT USES WALKER NORMALLY SOB WITH EXERTION . PT ABLE TO GO TO RESTROOM UPON ARRIVAL WITH WHEELCHAIR. Coronavirus screen: Client denies travel out of the [place] in the last 14 days. At this time, the client does not indicate any symptoms associated with coronavirus-19. Ebola Screen: Patient negative for fever greater than or equal to 101.5 degrees Fahrenheit, and additional compatible Ebola Virus Disease symptoms Patient denies exposure to infectious person. Patient denies travel to an Ebola-affected area in the 21 days before illness onset. No symptoms or risks identified at this time. Initial Sepsis Screen: Does the patient meet any 2 criteria? No. Patient's initial sepsis screen is negative. Does the patient have a suspected source of infection? No. Patient's initial sepsis screen is negative. Risk Assessment: Do you want to hurt yourself or someone else? Patient reports no desire to harm self or others. Onset of symptoms was January 16, 2024. 09:29 Method Of Arrival: EMS: [facility] db 09:29 Acuity: SHELLEY 2 db Triage Assessment: 09:37 General: Appears in no apparent distress. comfortable, Behavior is calm, cooperative. db Pain: Denies pain. Neuro: Level of Consciousness is awake, alert, obeys commands, Oriented to person, place, time, situation, Speech is normal. Cardiovascular: No deficits noted. Respiratory: Reports shortness of breath at rest on exertion cough that is Airway is patent Respiratory effort is even, unlabored, Respiratory pattern is regular, symmetrical. Historical: - Allergies: 09:37 Iodinated Contrast Media - IV Dye; db 09:37 Tegretol; db 09:37 trelegy; db - PMHx: 09:37 breast cancer-right side; cervical cancer; COPD; Diabetes - NIDDM; Hypertension; Kidney db stone; Myopathy; neuropathy; TIA; - PSHx: 09:37 mastectomy right; Total abdominal hysterectomy; db - Immunization history:: Adult Immunizations unknown. - Infectious Disease History:: Denies. - Social history:: Smoking status: Patient denies any tobacco usage or history of. Screenin:30 [facility] ED Fall Risk Assessment (Adult) History of falling in the last 3 months, db including since admission No falls in past 3 months (0 pts) Confusion or Disorientation No (0 pts) Intoxicated or Sedated No (0 pts) Impaired Gait Yes (1 pt) Mobility Assist Device Used Yes (1 pt) Altered Elimination No (0 pt) Score/Fall Risk Level 0 - 2 = Low Risk Oriented to surroundings, Maintained a safe environment. Abuse screen: Denies threats or abuse. Denies injuries from another. Nutritional screening: No deficits noted. Tuberculosis screening: No symptoms or risk factors identified. Assessment: 09:30 Reassessment: SEE TRIAGE FOR INITIAL ASSESSMENT. db 10:30 Reassessment: Patient appears in no apparent distress at this time. Patient and/or db family updated on plan of care and expected duration. Pain level reassessed. Patient is alert, oriented x 3, equal unlabored respirations, skin warm/dry/pink. General: Appears in no apparent distress. comfortable, Behavior is calm, cooperative. Pain: Denies pain. Neuro: Level of Consciousness is awake, alert, obeys commands, Oriented to person, place, time, situation. Respiratory: Airway is patent Respiratory effort is even, unlabored, Respiratory pattern is regular, symmetrical. 11:30 Reassessment: Patient appears in no apparent distress at this time. Patient and/or db family updated on plan of care and expected duration. Pain level reassessed. Patient is alert, oriented x 3, equal unlabored respirations, skin warm/dry/pink. General: Appears in no apparent distress. comfortable. 12:00 Reassessment: Patient appears in no apparent distress at this time. Patient and/or db family updated on plan of care and expected duration. Pain level reassessed. Patient is alert, oriented x 3, equal unlabored respirations, skin warm/dry/pink. 12:26 Reassessment: CALLED FACILITY TO GIVE REPORT. RINGS THEN HANGS UP. NOTIFIED CHARGE db NURSE UNABLE TO GET A HOLD OF [facility]. 13:08 Reassessment: CALLED GROUP HOME AGAIN FROM PERSONAL PHONE. NO ANSWER. [phone]. db 13:41 Reassessment: Attempted to call [facility], [phone] several ss times with no answer. 14:05 Reassessment: Patient appears in no apparent distress at this time. Patient and/or db family updated on plan of care and expected duration. Pain level reassessed. Patient is alert, oriented x 3, equal unlabored respirations, skin warm/dry/pink. EMS HERE FOR PATIENT TRANSPORT. General: Appears in no apparent distress. comfortable, Behavior is calm, cooperative. 14:13 Reassessment: Patient appears in no apparent distress at this time. Patient and/or db family updated on plan of care and expected duration. Pain level reassessed. Patient is alert, oriented x 3, equal unlabored respirations, skin warm/dry/pink. Vital Signs: 09:29 BP 132 / 60; Pulse 90; Resp 20; Temp 98.3(O); Pulse Ox 91% on R/A; Weight 85.28 kg; db Height 5 ft. 2 in. ; 09:35 BP 117 / 60; Pulse 86; Resp 16; Pulse Ox 97% on R/A; db 10:30 BP 123 / 41; Pulse 90; Resp 17; Pulse Ox 95% on 2 lpm NC; db 12:00 BP 123 / 49; Pulse 78; Resp 18; Pulse Ox 95% ; db 13:30 BP 134 / 49; Pulse 79; Resp 16; Pulse Ox 99% 2 lpm ; db 09:29 Body Mass Index 34.39 (85.28 kg, 157.48 cm) db 09:29 PT PLACED ON NC 2 L O2 INCREASED TO 95% db ED Course: 09:18 Patient arrived in ED. al6 09:23 Francy Mejia MD is Attending Physician. sp3 09:27 Kristel Morales, YUNIOR is Primary Nurse. db 09:29 Arm band placed on Patient placed in an exam room. db 09:37 Triage completed. db 09:50 Missed attempt(s): 20 gauge in left forearm. BY ED STAFF. Bleeding controlled, band aid db applied, catheter tip intact. 09:55 Missed attempt(s): 22 gauge in left forearm. BY ED STAFF. Bleeding controlled, band aid db applied, catheter tip intact. 10:10 Initial lab(s) drawn, by me, sent to lab. Missed attempt(s): 22 gauge in left forearm. db Bleeding controlled, band aid applied, catheter tip intact. 10:22 EKG done, by ED staff, reviewed by Francy Mejia MD. sa1 10:33 Missed attempt(s): 22 gauge in left wrist. Bleeding controlled, band aid applied, db catheter tip intact. 10:53 XRAY Chest (1 view) In Process Unspecified. EDMS 11:06 Accessed peripheral vein via ultrasound, utilizing dynamic ultrasound technique Blood ss collected. using 20G Nexia IV catheter ,sterile technique, per hospital protocol. Clean \T\ dry. Dressing intact. Good blood return. Flushes easily. 12:27 Patient has correct armband on for positive identification. Bed in low position. Call db light in reach. Side rails up X 1. Client placed on continuous cardiac and pulse oximetry monitoring. NIBP monitoring applied. monitor and storage bin tender on. Pulse ox on. NIBP on. Warm blanket given. Pillow given. 13:46 contacted ems to transport pt back to [facility]. bd 14:13 Provided Education on: DISCHARGE AND FOLLOWUP. db 14:13 No provider procedures requiring assistance completed. IV discontinued, intact, db bleeding controlled, No redness/swelling at site. Administered Medications: 09:54 Drug: DuoNeb Nebulize (3:1) (2.5 mg - 0.5 mg) 3 ml Nebulizer once Route: Nebulizer; db 11:10 Follow up: Response: No adverse reaction db 11:05 Drug: MethylPrednisoLONE IVP 125 mg IVP once Route: IVP; Site: left antecubital; db 14:15 Follow up: Response: No adverse reaction db Medication: 09:30 VIS not applicable for this client. db Outcome: 11:55 Discharge ordered by . sp3 14:13 [facility] to [facility]. Report called to NO ANSWER CHARGE NURSE NOTIFIED db 14:13 Condition: stable 14:13 Discharge instructions given to EMS, 14:16 Patient left the ED. db Signatures: Dispatcher [employer] EDMS Simran Kim Shelby, RN RN Francy Garcia MD MD sp3 Kristel Morales, RN RN db Sultan Jonathan [facility] Tracy Estrada6 Corrections: (The following items were deleted from the chart) 10: 09:55 Missed attempt(s): 22 gauge in left forearm. Bleeding controlled, band aid db applied, catheter tip intact. db
[2024-01-20 12:13] LABS: Blood Morphology Comment NOTED (NOT SEEN); Platelet Estimate ADEQ; White Blood Cell Scan OK (OK)
[2024-01-20 12:14] LABS: Anisocytosis 1+; Hypochromasia 1+; Microcytosis 1+
[2024-01-20 14:20] VITALS: TEMP 98.3
[2024-01-20 14:26] VITALS: BP 134/49; O2SAT 99
--- NOTE | 2024-01-23 15:58 | EKG ---
Test Date: 2024-01-20 Test Time: 10:10:21 Antique Clock Repairer: MEASUREMENT RESULTS: Intervals: Rate: 87 RI: 166 QRSD: 66 QT: 374 QTc: 450 [place]: P: 66 RI: 166 QRS: 41 T: 44 INTERPRETIVE STATEMENTS: Normal sinus rhythm Cannot rule out Anterior infarct, age undetermined Abnormal ECG Compared to ECG 12/24/2023 03:24:34 Myocardial infarct finding now present Electronically Signed On 01-23-24 15:52:27 [employer] by Helder Starkey
== END 2024-01-20 14:16 | disposition home or self-care (01) ==
LOC: ER 09:08
DX: J44.1 Chronic obstructive pulmonary disease with (acute) exacerbation (principal); R06.00 Dyspnea, unspecified; E11.9 Type 2 diabetes mellitus without complications; I10 Essential (primary) hypertension; Z85.3 Personal history of malignant neoplasm of breast
CPT/HCPCS: 93005; 85025; 80048; 36415; 83735; 85610; 80076; 84484; 83880; 71045; 96374; 99285; J7613; J7644; J2919

== ENCOUNTER 2024-02-12 13:23 | Emergency (ER) | payer OTHER ==
--- OUTSIDE RECORDS SUMMARY | 2024-02-12 13:27 | XMS REPORT | Continuity of Care Document ---
Author Name Unknown Address [address] [facility] [place] [address] [facility] Address [address] [facility] [place] [address] Care Team Providers Care Physician In Private Practice Name Role Phone JESUS FRANCO Primary Care Physician Unavailab Jesus Samano Attending Clinician Unavailable Shivani Anguiano Attending Clinician Unavailable MONSERRAT SOLIS Attending Clinician Unavailable Monserrat Solis MD Attending Clinician [phone] Lab, Ang - Db Attending Clinician Unavailable Michael Attending Clinician Unavailable Michael Admitting Clinician Unavailable Payers Payer Name Policy Type Policy Number Effective Date Expirati on Date Source [facility] MCR [id number] [facility] [place] DUAL COMP CHOICE PPO [id number] 2023 00:00:00 [facility] [id number] Problems Condition Name Condition Details Condition Category Status Onset Date Resolution Date Last Treatment Date Treating Clinician Comments Source [facility] Primary hypertensi on Disease Active 08-21 00:00: 00 [facility] Paroxysmal atrial fibrillati on Paroxysmal atrial fibrillati on Disease Active 08-21 00:00: 00 [facility] Preoperati ve cardiovasc ular examinatio n Preoperati ve cardiovasc ular examinatio n Disease Active 08-21 00:00: 00 [facility] At high risk for injury related to fall At high risk for injury related to fall Disease Active 08-21 00:00: 00 [facility] Frail elderly Frail elderly Disease Active 08-21 00:00: 00 [facility] Secondary polycythem ia Secondary Polycythem ia Problem Active 2020-02 00:00: 00 [facility] Administra tion of influenza vaccine Administra tion of Influenza Vaccine Problem Active 2020-02 00:00: 00 [facility] Type 2 diabetes mellitus Type 2 Diabetes Mellitus Problem Active 06-19 00:00: 00 [facility] History of SARS-CoV-2 History of SARS-CoV-2 Problem Active 06-19 00:00: 00 [facility] Neuropathy due to type 2 diabetes mellitus Neuropathy Due to Type 2 Diabetes Mellitus Problem Active 11-08 00:00: 00 [facility] Gastroesop hageal reflux disease without esophagiti s Gastroesop hageal Reflux Disease without Esophagiti s Problem Active 2018-02 00:00: 00 [facility] Psoriasis Psoriasis Problem Active 10-14 00:00: 00 [facility] Ulcer of foot Ulcer of Foot Problem Active 04-22 00:00: 00 [facility] Senile osteoporos is Senile Osteoporos is Problem Active 2017-02 00:00: 00 [facility] Neuropathy due to diabetes mellitus Neuropathy Due to Diabetes Mellitus Problem Active 2016-02 00:00: 00 [facility] Hypoglycem ia Hypoglycem ia Problem Active 2016-02 00:00: 00 [facility] Hyperlipid emia Hyperlipid emia Problem Active 2016-02 00:00: 00 [facility] Obesity Obesity Problem Active 2016-02 00:00: 00 [facility] Chronic major depressive disorder, single episode Chronic Major Depressive Disorder, Single Episode Problem Active 2016-02 00:00: 00 [facility] Chronic pain Chronic Pain Problem Active 2016-02 00:00: 00 [facility] Essential hypertensi on Essential Hypertensi on Problem Active 2016-02 00:00: 00 [facility] Chronic obstructiv e lung disease Chronic Obstructiv e Lung Disease Problem Active 2016-02 00:00: 00 [facility] [id number] Boil Problem [facility] [id number] Dysuria Problem [facility] Cerebrovas cular disease Cerebrovas cular disease, unspecifie d Problem [facility] Malignant neoplasm of upper-inne r quadrant of female breast 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, unspecifie d estrogen receptor status Problem [facility] [id number] Menopausal vaginal dryness Problem [facility] Allergies, Adverse Reactions, Alerts Allergy Name Allergy Type Status Severity Reaction(s) Onset Date Inactive Date Treating Clinician Comments Source Iodine Propensi ty to adverse reaction s Active Shortness of Breath 04-28 00:00: 00 [facility] Carbamaz epine Propensi ty to adverse reaction s Active Shortness of Breath 04-28 00:00: 00 [facility] IODINE DRUG INGREDI Active Rash 04-28 00:00: 00 [facility] CARBAMAZ EPINE DRUG INGREDI Active Rash 04-28 00:00: 00 [facility] Iodine Allergy to substanc e Active [facility] Tegretol Allergy to substanc e Active [facility] 463 Drug allergy Active nausea,diff breathing [facility] carbamaz epine carbamaz epine Active hives [facility] Social History Social Habit Start Date Stop Date Quantity Comments Source [facility] of Tobacco Use [facility] History of Social function 2023-08-22 00:00:00 2023-08-22 00:00:00 [facility] Sex assigned at 1945 00:00:00 1945 00:00:00 [facility] Smoking Status Start Date Stop Date Source Never smoked tobacco [facility] Medications Ordered Medication Name Filled Medication Name Start Date Stop Date Current Medication? Ordering Clinician Indication Dosage Frequency Signature (SIG) Comments Components Source Acetaminoph en-Codeine 300-30 MG Acetaminoph en-Codeine 300-30 MG 2023-02 0 00:00: 00 No 1{table t_as_ne eded} QID Acetaminop hen-Codein e 300-30 MG atorvastati n 20 mg tablet 08-21 09:38: 46 08-21 00:00 :00 No 20mg Take 1 tablet by mouth at bedtime. [facility] aspirin 81 mg chewable tablet 08-21 09:36: 41 08-21 00:00 :00 No 81mg Take 1 tablet by mouth in the morning. [facility] buPROPion SR 150 mg SR tablet 08-21 08:49: 07 Yes 150mg Take 1 tablet by mouth in the morning and 1 tablet in the evening. [facility] apixaban (ELIQUIS) 5 mg tablet 08-21 08:49: 07 Yes 5mg Take 1 tablet by mouth in the morning and 1 tablet in the evening. [facility] empaglifloz in-metformi n (SYNJARDY XR) 25-1,000 mg TBph 08-21 08:49: 07 Yes Take by mouth. [facility] metoprolol succinate XL 25 mg 24 hr tablet 08-21 08:49: 07 Yes 25mg Take 1 tablet by mouth in the morning. [facility] omeprazole 20 mg capsule 08-21 08:45: 20 Yes 40mg Take 2 capsules by mouth in the morning. [facility] INSULIN LISPRO SC 08-21 08:45: 20 Yes inject under the skin. [facility] losartan 100 mg tablet 08-21 08:45: 20 Yes 100mg Take 1 tablet by mouth in the morning. [facility] atorvastati n 40 mg tablet 08-21 00:00: 00 08-22 04:59 :00 No [id number] 40mg Take 1 tablet by mouth at bedtime. [facility] Bupivicaine [place] Bupivicaine [place] 03-25 00:00: 00 No 2.5mg [facility] Kenalog (Triamcinol one) Kenalog (Triamcinol one) 10-01 00:00: 00 No 40mg [facility] metformin ER 500 mg 24 hr tablet 04-15 00:00: 00 Yes TAKE 2 TABLETS TWICE A DAY [facility] LYRICA 300 mg capsule 04-14 00:00: 00 Yes TAKE ONE CAPSULE BY MOUTH TWICE A DAY [facility] FLUoxetine 40 mg capsule 04-01 00:00: 00 Yes TAKE ONE CAPSULE BY MOUTH EVERY DAY [facility] methylPREDN ISolone 4 mg tablets 03-28 00:00: 00 Yes TAKE 6 TABLETS ON DAY 1 DIRECTED ON PACKAGE AND DECREASE BY 1 TAB EACH DAY FOR A TOTAL OF 6 DAYS [facility] VGO 40 Danni 03-17 00:00: 00 Yes USE TO DELIVER INSULIN DAILY [facility] amLODIPine 5 mg tablet 2016-02 00:00: 00 Yes 5mg Take 1 tablet by mouth in the morning. [facility] traZODone HCl 50 MG traZODone HCl 50 MG No 1{table t_at_be dtime_a s_neede d} QD traZODone HCl 50 MG amLODIPine Besylate 10 MG amLODIPine Besylate 10 MG No 1{table t} QD amLODIPine Besylate 10 MG acetaminoph en 500 mg capsule Take 2 capsules every 6 hours by oral route as needed. acetaminoph en 500 mg capsule Take 2 capsules every 6 hours by oral route as needed. No 2capsul e(s) Q6H acetaminop hen 500 mg capsule Take 2 capsules every 6 hours by oral route as needed. [facility] Adult Aspirin Regimen 81 mg tablet,helen yed release Take 1 tablet every day by oral route in the morning. Adult Aspirin Regimen 81 mg tablet,helen yed release Take 1 tablet every day by oral route in the morning. No 1 Q1D Adult Aspirin Regimen 81 mg tablet,del ayed release Take 1 tablet every day by oral route in the morning. [facility] amlodipine 5 mg tablet Take 1 tablet every day by oral route in the morning. amlodipine 5 mg tablet Take 1 tablet every day by oral route in the morning. No 1 Q1D amlodipine 5 mg tablet Take 1 tablet every day by oral route in the morning. [facility] BD Ultra-Fine Digna Pen Needle 32 gauge x 5/32" as directed BD Ultra-Fine Digna Pen Needle 32 gauge x 5/32" as directed No BD Ultra-Fine Digna Pen Needle 32 gauge x 5/32" as directed [facility] Comfort EZ Pen [place] 32 gauge x 5/16" Take 1 needle every day by miscell. route as directed. Comfort EZ Pen [place] 32 gauge x 5/16" Take 1 needle every day by miscell. route as directed. No 1needle (s) Q1D Comfort EZ Pen [place] 32 gauge x 5/16" Take 1 needle every day by miscell. route as directed. [facility] diphenhydra mine 25 mg capsule Take 1 capsule every 8 hours by oral route as directed. diphenhydra mine 25 mg capsule Take 1 capsule every 8 hours by oral route as directed. No 1capsul e(s) Q8H diphenhydr amine 25 mg capsule Take 1 capsule every 8 hours by oral route as directed. [facility] ipratropium bromide 0.02 % solution for inhalation Inhale 2.5 mL every 6 hours by inhalation route. ipratropium bromide 0.02 % solution for inhalation Inhale 2.5 mL every 6 hours by inhalation route. No 2.5mL Q6H ipratropiu m bromide 0.02 % solution for inhalation Inhale 2.5 mL every 6 hours by inhalation route. [facility] metformin ER 500 mg 24 hr tablet,exte nded release Take 2 tablets twice a day by oral route with meals for 90 days. metformin ER 500 mg 24 hr tablet,exte nded release Take 2 tablets twice a day by oral route with meals for 90 days. No 2 BID metformin ER 500 mg 24 hr tablet,ext ended release Take 2 tablets twice a day by oral route with meals for 90 days. [facility] omeprazole 20 mg delayed release,dis integrating tablet Take 1 tablet every day by oral route as directed. omeprazole 20 mg delayed release,dis integrating tablet Take 1 tablet every day by oral route as directed. No 1 Q1D omeprazole 20 mg delayed release,di sintegrati ng tablet Take 1 tablet every day by oral route as directed. [facility] Soliqua 100/33 100 unit-33 mcg/mL subcutaneou s insulin pen Give 60 units in AM [place]a 100/33 100 unit-33 mcg/mL subcutaneou s insulin pen Give 60 units in AM No [place]a 100/33 100 unit-33 mcg/mL subcutaneo us insulin pen Give 60 units in AM [facility] Apixaban 5 MG Apixaban 5 MG No Apixaban 5 MG Pregabalin 300 MG Pregabalin 300 MG No 1{capsu le} BID Pregabalin 300 MG FLUoxetine HCl 20 MG FLUoxetine HCl 20 MG No 1{capsu le} QD FLUoxetine HCl 20 MG Diclofenac Sodium 1 % Diclofenac Sodium 1 % No Diclofenac Sodium 1 % buPROPion HCl ER (XL) 150 MG buPROPion HCl ER (XL) 150 MG No 1{table t_in_th e_morni ng} QD buPROPion HCl ER (XL) 150 MG Atorvastati n Calcium 20 MG Atorvastati n Calcium 20 MG No 1{table t} QD Atorvastat in Calcium 20 MG Losartan Potassium-H CTZ 100-12.5 MG Losartan Potassium-H CTZ 100-12.5 MG No 1{table t} QD Losartan Potassium- HCTZ 100-12.5 MG Lactulose 10 GM/15ML Lactulose 10 GM/15ML No 15{ml_a s_neede d} QD Lactulose 10 GM/15ML Famotidine 20 MG Famotidine 20 MG No 1{table t_at_be dtime_a s_neede d} QD Famotidine 20 MG Metoprolol Tartrate 25 MG Metoprolol Tartrate 25 MG No 1{table t_with_ food} BID Metoprolol Tartrate 25 MG Vital Signs Vital Name Observation Time Observation Value Comments S ource height 2023-12-29 15:00:00 62 [in_i] Commo n [facility] weight 2023-12-29 15:00:00 195 [lb_av] Comm on [facility] temperature 2023-12-29 15:00:00 98.0 [degF] Com [facility] bmi 2023-12-29 15:00:00 35.66 kg/m2 Comm on [facility] blood pressure systolic 2023-12-29 15:00:00 112 mm[Hg] [facility] blood pressure diastolic 2023-12-29 15:00:00 63 mm[Hg] [facility] height 2023-12-01 11:00:00 62 [in_i] Commo n [facility] weight 2023-12-01 11:00:00 195 [lb_av] Comm on [facility] temperature 2023-12-01 11:00:00 98.0 [degF] Com [facility] bmi 2023-12-01 11:00:00 35.661 kg/m2 Com [facility] blood pressure systolic 2023-12-01 11:00:00 136 mm[Hg] [facility] blood pressure diastolic 2023-12-01 11:00:00 84 mm[Hg] [facility] Systolic blood pressure 2023-08-22 13:51:00 104 mm[Hg] [facility] Diastolic blood pressure 2023-08-22 13:51:00 57 mm[Hg] [facility] Heart rate 2023-08-22 13:51:00 64 /min [facility] Body height 2023-08-22 13:51:00 157.5 cm [facility] Body weight 2023-08-22 13:51:00 89.812 kg [facility] BMI 2023-08-22 13:51:00 36.21 kg/m2 [facility] Oxygen saturation in Arterial blood by Pulse oximetry 2023-08-22 13:51:00 96 /min [facility] height 2022-03-25 15:00:00 62 [in_i] Commo n [facility] weight 2022-03-25 15:00:00 197 [lb_av] Comm on [facility] temperature 2022-03-25 15:00:00 97.9 [degF] Com [facility] bmi 2022-03-25 15:00:00 36.03 kg/m2 Comm on [facility] blood pressure systolic 2022-03-25 15:00:00 136 mm[Hg] [facility] blood pressure diastolic 2022-03-25 15:00:00 84 mm[Hg] [facility] height 2021-11-12 13:15:00 62 [in_i] Commo n [facility] weight 2021-11-12 13:15:00 205.4 [lb_av] Co [facility] temperature 2021-11-12 13:15:00 97.3 [degF] Com [facility] bmi 2021-11-12 13:15:00 37.56 kg/m2 Comm on [facility] blood pressure systolic 2021-11-12 13:15:00 146 mm[Hg] [facility] blood pressure diastolic 2021-11-12 13:15:00 86 mm[Hg] [facility] height 2021-10-01 13:30:00 62 [in_i] Commo n [facility] weight 2021-10-01 13:30:00 198.5 [lb_av] Co [facility] temperature 2021-10-01 13:30:00 97.3 [degF] Com [facility] bmi 2021-10-01 13:30:00 36.3 kg/m2 Commo n [facility] blood pressure systolic 2021-10-01 13:30:00 128 mm[Hg] [facility] blood pressure diastolic 2021-10-01 13:30:00 74 mm[Hg] [facility] BP Diastolic 2021-03-21 00:00:00 76 mm[Hg] [facility] Height 2021-03-21 00:00:00 62 [in_i] [facility] BMI (Body Mass Index) 2021-03-21 00:00:00 35.7 kg/m2 [facility] BP Systolic 2021-03-21 00:00:00 140 mm[Hg] [facility] Body Weight 2021-03-21 00:00:00 195 [lb_av] [facility] BP Diastolic 2020-12-19 00:00:00 77 mm[Hg] [facility] Height 2020-12-19 00:00:00 62 [in_i] [facility] BMI (Body Mass Index) 2020-12-19 00:00:00 36.1 kg/m2 [facility] BP Systolic 2020-12-19 00:00:00 135 mm[Hg] [facility] Body Weight 2020-12-19 00:00:00 197.4 [lb_av] [facility] BP Diastolic 2020-09-22 00:00:00 57 mm[Hg] [facility] Height 2020-09-22 00:00:00 62 [in_i] [facility] BMI (Body Mass Index) 2020-09-22 00:00:00 36.2 kg/m2 [facility] BP Systolic 2020-09-22 00:00:00 124 mm[Hg] [facility] Body Weight 2020-09-22 00:00:00 198 [lb_av] [facility] BP Diastolic 2020-09-11 00:00:00 79 mm[Hg] [facility] Height 2020-09-11 00:00:00 62 [in_i] [facility] BMI (Body Mass Index) 2020-09-11 00:00:00 35.8 kg/m2 [facility] BP Systolic 2020-09-11 00:00:00 141 mm[Hg] [facility] Body Weight 2020-09-11 00:00:00 196 [lb_av] [facility] BP Diastolic 2020-06-19 00:00:00 80 mm[Hg] [facility] Height 2020-06-19 00:00:00 62 [in_i] [facility] Practice BMI (Body Mass Index) 2020-06-19 00:00:00 35.8 kg/m2 [facility] BP Systolic 2020-06-19 00:00:00 134 mm[Hg] [facility] Body Weight 2020-06-19 00:00:00 196 [lb_av] [facility] BP Diastolic 2019-11-09 00:00:00 64 mm[Hg] [facility] Practice Height 2019-11-09 00:00:00 62 [in_i] [facility] BMI (Body Mass Index) 2019-11-09 00:00:00 35.6 kg/m2 [facility] BP Systolic 2019-11-09 00:00:00 154 mm[Hg] [facility] Body Weight 2019-11-09 00:00:00 194.6 [lb_av] [facility] Procedures Procedure Date / Time Performed Performing Clinician Source Removal of Gallbladder 2019-07-12 00:00:00 [facility] Laparoscopic Cholecystectomy 2019-04-30 00:00:00 [facility] Colonoscopy [facility] Procedure on Kidney [facility] Procedure on Bladder [facility] Operation on Cervix [facility] Breast Surgery [facility] Hysterectomy (Total) [facility] Plan of Care Planned Activity Planned Date Details Comments Source Diagnostic Test Pending 2021-03-21 00:00:00 glucose, fingerstick, blood [code = glucose, fingerstick, blood] [facility] Diagnostic Test Pending 2021-03-21 00:00:00 hemoglobin A1C, fingerstick [code = hemoglobin A1C, fingerstick] [facility] Encounters Start Date/Time End Date/Time Encounter Type Admission Type Attending Clinicians Care Facility Care Department Encounter ID Source 2024-02-09 09:51:00 Outpatient Jesus Franco [facility] [id number] [facility] 2023-12-26 08:56:00 Outpatient Jesus Franco [facility] [id number] [facility] 2023-12-01 16:13:00 Outpatient Jesus Franco [facility] [id number] [facility] 2022-03-25 16:58:00 Outpatient Jesus Franco [facility] [id number] [facility] 2022-03-11 10:48:00 Outpatient Jesus Franco [facility] [id number] [facility] 2021-10-01 13:17:00 Outpatient Jesus Franco [facility] [id number] [facility] 2021-09-18 14:32:00 Outpatient Shivani Anguiano [facility] [id number] [facility] 2023-12-29 00:00:00 2023-12-29 00:00:00 OFFICE VISIT ESTAB PT LEVEL 4 [facility] [id number] [facility] 2023-12-23 00:00:00 2023-12-23 00:00:00 (TEL) [facility] [id number] [facility] 2023-12-18 00:00:00 2023-12-18 00:00:00 (TEL) [facility] [id number] [facility] 2023-12-01 00:00:00 2023-12-01 00:00:00 (TEL) [facility] [id number] [facility] 2023-12-01 00:00:00 2023-12-01 00:00:00 OFFICE VISIT ESTAB PT LEVEL 4 [facility] [id number] [facility] 2023-11-18 00:00:00 2023-11-18 00:00:00 (TEL) [facility] [id number] [facility] 2023-10-03 14:30:00 2023-10-03 14:30:00 [id number] 2023-08-25 00:00:00 2023-08-25 15:39:36 Telephone Brian [facility] PROFESSIO NAL BUILDING [id number] [facility] 2023-08-22 10:00:00 2023-08-22 10:04:44 Outpatient [facility] [id number] [facility] 2023-08-22 10:00:00 2023-08-22 10:04:44 Floor Cleaner Visit Lab, Kamaljit Edmondson Brian [facility] ANASTACIO?[facility] [id number] [facility] 2023-08-22 08:30:00 2023-08-22 09:46:05 Office Visit Brian [facility] [id number] [facility] 2022-03-25 00:00:00 2022-03-25 00:00:00 OFFICE VISIT ESTAB PT LEVEL 4 [facility] [id number] [facility] 2021-11-12 00:00:00 2021-11-12 00:00:00 OFFICE VISIT ESTAB PT LEVEL 4 [facility] [id number] [facility] 2021-10-01 00:00:00 2021-10-01 00:00:00 OFFICE VISIT NEW PT LEVEL 4 [facility] [id number] [facility] 2021-03-23 10:25:00 2021-03-23 10:25:00 Outpatient Daniel_T [facility]FP [facility] [id number] [facility] 2021-03-21 00:00:00 2021-03-21 00:00:00 Yuri Rodriguez MD: [id number], [address], [place] [address] , Ph. Daniel_T VFP [place] - [facility] - _HOU_[place] [id number] [facility] 2021-03-14 03:48:00 2021-03-14 03:48:00 Outpatient Daniel_T VFP VFP [id number] [facility] 2020-12-22 01:15:00 2020-12-22 01:15:00 Outpatient Daniel_T VFP VFP [id number] [facility] 2020-12-21 10:26:00 2020-12-21 10:26:00 Outpatient Daniel_T VFP VFP [id number] [facility] 2020-12-19 00:00:00 2020-12-19 00:00:00 Yuri Rodriguez MD: [id number], [address], [place] [address] , Ph. Daniel_T VFP [place] [facility] - _HOU_[place] [id number] [facility] 2020-12-12 11:08:00 2020-12-12 11:08:00 Outpatient Daniel_T VFP VFP [id number] [facility] 2020-09-26 05:04:00 2020-09-26 05:04:00 Outpatient Daniel_T VFP VFP [id number] [facility] 2020-09-22 00:00:00 2020-09-22 00:00:00 Yuri Rodriguez MD: [id number], [place] [address] , Ph. Daniel_T VFP [place] [facility] VM_HOU_[place] [facility] [place] [id number] [facility] 2020-09-14 03:01:00 2020-09-14 03:01:00 Outpatient Daniel_T VFP VFP [id number] [facility] 2020-09-11 00:00:00 2020-09-11 00:00:00 Yuri Rodriguez MD: [id number] [facility] [address], [place] [address] , Ph. Daniel_T VFP [place] [facility] - VM_HOU_[place] [facility] [place] [id number] [facility] 2020-07-28 01:29:00 2020-07-28 01:29:00 Outpatient Daniel_T VFP VFP [id number] [facility] 2020-06-21 06:47:00 2020-06-21 06:47:00 Outpatient Daniel_T VFP VFP [id number] [facility] 2020-06-19 00:00:00 2020-06-19 00:00:00 Yuri Rodriguez MD: [id number] [facility], [facility] [address], [place] [address] , Ph. Daniel_T VFP [place] - [facility] - VM_HOU_Shad ow Harvey [id number] [facility] 2020-03-20 09:49:00 2020-03-20 09:49:00 Outpatient Daniel_T VFP VFP [id number] [facility] 2019-11-12 06:54:00 2019-11-12 06:54:00 Outpatient Daniel_T VFP VFP [id number] [facility] 2019-11-09 00:00:00 2019-11-09 00:00:00 Yuri Rodriguez MD: [id number] [facility], [facility] [address], [place] [address] , Ph. Daniel_T VFP [place] - [facility] - VM_KELVIN_Keshawn padgett [id number] [facility] 2019-10-27 10:48:00 2019-10-27 10:48:00 Outpatient Michael [facility] [id number] [facility] Pract[facility] e Results Test Description Test Time Test Comments Results Result Co mments Source [facility] Cap[facility] [id number] 10:04:25* Test Item Value Reference Range Interpretation Comme nts Blood Glucose: mg/dl (test c ode = Blood Glucose: mg/dl) 112 [facility] measurement device [id number] 11:02:48* Test Item Value Reference Range Interpretation Comme nts Hemoglobin A1C Fingerstick: (test code = Hemoglobin A1C Fingerstick:) 7.2 [facility] in Capillary [id number] 10:55:53* Test Item Value Reference Range Interpretation Comme nts Blood Glucose: mg/dl (test c ode = Blood Glucose: mg/dl) 247 [facility]
[2024-02-12] MEDS ORDERED: KETOROLAC 30 MG/ML INJ ONE (13:48)
[2024-02-12] MEDS ORDERED: NA CHLORIDE 0.9% 1,000 ML ONE (13:48)
[2024-02-12 14:01] LABS: Absolute Basophils 0.1 K/uL (0-0.5); Absolute Eosinophils 0.2 K/uL (0-0.5); Absolute Lymphocytes (CBC) 2.2 K/uL (0.7-4.9); Absolute Monocytes 0.6 K/uL (0.1-1.3); Absolute Neutrophil 3.5 K/uL (1.8-8.0); Basophils % 0.8 % (0-1.3); Eosinophils % 2.5 % (0-4.4); Hematocrit 31.2 % (36.0-45.0); Hemoglobin 9.2 g/dL (12.0-15.0); Lymphocytes % 34.2 % (15.3-44.8); MCH 20.8 pg (27.0-35.0); MCHC 29.6 g/dL (32.0-36.0); MCV 70.1 fL (80-100); MPV 8.5 fL (7.6-11.3); Monocytes % 9.6 % (3.3-12.3); Neutrophils % 52.9 % (41.7-73.7); Nucleated Red Blood Cells % 0.1 % (0-0); Platelets 320 thou/uL (152-406); RBC Red Blood Cell Count 4.46 M/uL (3.86-4.86); Red Cell Distribution Width 20.9 % (12.1-15.2)
[2024-02-12 14:03] LABS: Anion Gap 11.2 mEq/L (5.0-15.0); Potassium 4.2 mEq/L (3.5-5.1)
--- NOTE | 2024-02-12 14:10 | RAD REPORT ---
EXAMINATION: XR RIGHT HUMERUS HISTORY: known humerus fx RIGHT TECHNIQUE: Multiple views of the right humerus performed. COMPARISON: 11/05/2023 FINDINGS: Moderate bony bridging is seen about the patient's known proximal humeral shaft fracture. R ight axillary surgical clips. Moderate AC joint and glenohumeral joint arthritic changes. No acute fracture seen.
--- NOTE | 2024-02-12 14:13 | ER ---
Nurse's Notes [facility] Name: Kiley Ortega Age: 78 yrs Sex: Female : 1945 Arrival Date: 02/12/2024 Time: 13:23 Bed 14 Private MD: Diagnosis: Hyperglycemia, unspecified;Known Humerus Fracture Presentation: 02/11 13:27 Chief complaint: Patient states: RUE swelling and pain increasing since breaking it in ll1 October. No new falls/trauma. Coronavirus screen: Client denies travel out of the [place] in the last 14 days. At this time, the client does not indicate any symptoms associated with coronavirus-19. Ebola Screen: Patient denies travel to an Ebola-affected area in the 21 days before illness onset. Initial Sepsis Screen: Does the patient meet any 2 criteria? No. Patient's initial sepsis screen is negative. Does the patient have a suspected source of infection? No. Patient's initial sepsis screen is negative. Risk Assessment: Do you want to hurt yourself or someone else? Patient reports no desire to harm self or others. Onset of symptoms was November 05, 2023. 13:27 Method Of Arrival: EMS: [facility] ll1 13:27 Acuity: SHELLEY 4 ll1 Triage Assessment: 13:27 General: Appears uncomfortable, Behavior is calm, cooperative, appropriate for age. ll1 Pain: Complains of pain in RUE Pain currently is 9 out of 10 on a pain scale. Quality of pain is described as aching. Neuro: No deficits noted. Musculoskeletal: Circulation, motion, and sensation intact. Capillary refill < 3 seconds, in right fingers. Reports pain in RUE. Historical: - Allergies: 13:27 Iodinated Contrast Media - IV Dye; ll1 13:27 Tegretol; ll1 13:27 trelegy; ll1 - PMHx: 13:27 breast cancer-right side; cervical cancer; COPD; Diabetes - NIDDM; Hypertension; Kidney ll1 stone; Myopathy; neuropathy; TIA; - PSHx: 13:27 mastectomy right; Total abdominal hysterectomy; ll1 - Immunization history:: Adult Immunizations up to date. - Infectious Disease History:: Denies. - Social history:: Smoking status: Patient denies any tobacco usage or history of. Screenin:57 [facility] ED Fall Risk Assessment (Adult) History of falling in the last 3 months, ll1 including since admission Yes- single mechanical fall (1 pt) Confusion or Disorientation No (0 pts) Intoxicated or Sedated No (0 pts) Impaired Gait No (0 pts) Mobility Assist Device Used No (0 pt) Altered Elimination No (0 pt) Score/Fall Risk Level 0 - 2 = Low Risk Maintained a safe environment, Hourly rounding (assess needs \T\ fall precautionary measures) done. Abuse screen: Denies threats or abuse. Nutritional screening: No deficits noted. Tuberculosis screening: No symptoms or risk factors identified. Assessment: 13:58 Reassessment: No changes from previously documented assessment. Patient and/or family ll1 updated on plan of care and expected duration. Pain level reassessed. Patient is alert, oriented x 3, equal unlabored respirations, skin warm/dry/pink. 15:00 Reassessment: No changes from previously documented assessment. Patient and/or family ll1 updated on plan of care and expected duration. Pain level reassessed. Patient is alert, oriented x 3, equal unlabored respirations, skin warm/dry/pink. 15:00 Musculoskeletal: Circulation, motion, and sensation intact. Capillary refill < 3 ll1 seconds, in right fingers. Range of motion: intact in all extremities. Vital Signs: 13:56 BP 144 / 48; Pulse 72; Resp 17; Temp 97.5; Pulse Ox 98% on R/A; Weight 84.82 kg; Height ll1 5 ft. 2 in. ; Pain 9/10; 14:48 BP 144 / 79; Pulse 71; Resp 16; Pulse Ox 98% on R/A; ll1 13:56 Body Mass Index 34.20 (84.82 kg, 157.48 cm) ll1 13:56 Pain Scale: Adult ll1 ED Course: 13:24 Patient arrived in ED. ec2 13:24 Ricci Chavez MD is Attending Physician. ec2 13:27 Yariel Davis, YUNIOR is Primary Nurse. ll1 13:27 Arm band placed on Patient placed in an exam room, on a stretcher. ll1 13:27 Patient has correct armband on for positive identification. Bed in low position. ll1 Provided Education on: ER procedures and process. 13:29 Triage completed. ll1 13:38 Missed attempt(s): 22 gauge in left wrist. Bleeding controlled, band aid applied, ll1 catheter tip intact. 13:39 Humerus Right XRAY In Process Unspecified. EDMS 13:44 Inserted saline lock: 22 gauge in left forearm, using aseptic technique. Blood ll1 collected. Flushed with 10 mL NS. 13:45 Initial lab(s) drawn, by wi, sent to lab. ll1 15:00 Shoulder immobilizer applied on right shoulder. ll1 15:01 No provider procedures requiring assistance completed. IV discontinued, intact, ll1 bleeding controlled, No redness/swelling at site. Pressure dressing applied. Administered Medications: 13:53 Drug: NS 0.9% IV 1000 ml IV at 1 bolus Per protocol; to be given as a bolus over 60 ll1 minutes Route: IV; Rate: 1 bolus; Site: left forearm; 15:03 Follow up: Response: No adverse reaction; IV Status: Completed infusion; IV Intake: ll1 1000ml 13:53 Drug: Ketorolac IVP 15 mg IVP once Route: IVP; Site: left forearm; ll1 15:03 Follow up: Response: No adverse reaction; Pain is decreased; RASS: Alert and Calm (0) ll1 Medication: 15:03 VIS not applicable for this client. ll1 Intake: 15:03 IV: 1000ml; Total: 1000ml. 1 Outcome: 14:13 Discharge ordered by . ec2 15:01 Discharged to custodial. Report called to [facility] personnel, [facility] 15:01 Condition: stable 15:01 Discharge instructions given to patient, Instructed on discharge instructions, follow up and referral plans. Demonstrated understanding of instructions, follow-up care, 15:26 Patient left the ED. 1 Signatures: Dispatcher [employer] Yariel Rapp, RN RN ll1 Ricci Chavez MD MD ec2
--- NOTE | 2024-02-12 14:13 | EDPHYS ---
Physician Documentation [facility] Name: Kiley Ortega Age: 78 yrs Sex: Female : 1945 Arrival Date: 02/12/2024 Time: 13:23 Bed 14 Private MD: ED Physician Ricci Chavez HPI: 02/11 13:25 This 78 yrs old Female presents to ER via Unassigned with complaints of ec2 shoulder pain, elevated BS. 13:25 Patient arrives today for known right shoulder pain, has a previous history of humerus ec2 fracture is having pain. Patient reports no falls injuries or trauma. Patient also with elevated blood sugars today. Reports medication compliance.. Historical: - Allergies: 13:27 Iodinated Contrast Media - IV Dye; ll1 13:27 Tegretol; ll1 13:27 trelegy; ll1 - PMHx: 13:27 breast cancer-right side; cervical cancer; COPD; Diabetes - NIDDM; Hypertension; Kidney ll1 stone; Myopathy; neuropathy; TIA; - PSHx: 13:27 mastectomy right; Total abdominal hysterectomy; ll1 - Immunization history:: Adult Immunizations up to date. - Infectious Disease History:: Denies. - Social history:: Smoking status: Patient denies any tobacco usage or history of. ROS: 13:25 Constitutional: as per hpi ec2 Exam: 13:25 Constitutional: GEN: NAD Head: atraumatic Eyes: EOMI Ears: External ears are ec2 normal. CV: regular rate LUNGS: no respiratory distress ABD: non-distended SKIN: no evidence of rashes MSK right upper extremity with intact distal neurovascular status. TTP to the mid humerus. Vital Signs: 13:56 BP 144 / 48; Pulse 72; Resp 17; Temp 97.5; Pulse Ox 98% on R/A; Weight 84.82 kg; Height ll1 5 ft. 2 in. ; Pain 9/10; 14:48 BP 144 / 79; Pulse 71; Resp 16; Pulse Ox 98% on R/A; ll1 13:56 Body Mass Index 34.20 (84.82 kg, 157.48 cm) ll1 13:56 Pain Scale: Adult ll1 MDM: 13:24 Medical Screening Exam initiated ec2 13:25 Data reviewed: vital signs, nurses notes. ED course: Patient arrives today for ec2 evaluation of right shoulder pain and elevated blood sugars. Examination yields MSK findings as above. Will obtain lab work given reported elevated blood sugars and will obtain radiograph of the right shoulder. Suspect sequela of patient's known humerus fracture. Additionally evaluating for processes such as DKA, HHS however patient is awake and alert and conversational and appears to be at her functional baseline.. 14:12 ED course: Metabolic profile shows hyperglycemia with a blood sugar of 48. Patient ec2 otherwise with a normal anion gap. Normal CO2. On reassessment patient remains well-appearing no acute distress. No evidence of acute renal dysfunction on metabolic profile. Give the patient a liter of crystalloid. Will discharge home have the patient follow-up with PCP for hyperglycemia. I instructed her to continue her insulin regimen and to follow-up for medication changes.. 02/11 13:25 Order name: CBC with Diff; Complete Time: 14:20 ec2 02/11 13:25 Order name: BMP; Complete Time: 14:11 ec2 02/11 14:16 Order name: CBC Smear Scan; Complete Time: 14:20 EDMS 02/11 13:24 Order name: Humerus Right XRAY; Complete Time: 14:11 ec2 02/11 13:25 Order name: Sling; Complete Time: 15:07 ec2 02/11 13:25 Order name: IV; Complete Time: 13:50 ec2 Administered Medications: 13:53 Drug: NS 0.9% IV 1000 ml IV at 1 bolus Per protocol; to be given as a bolus over 60 ll1 minutes Route: IV; Rate: 1 bolus; Site: left forearm; 15:03 Follow up: Response: No adverse reaction; IV Status: Completed infusion; IV Intake: ll1 1000ml 13:53 Drug: Ketorolac IVP 15 mg IVP once Route: IVP; Site: left forearm; ll1 15:03 Follow up: Response: No adverse reaction; Pain is decreased; RASS: Alert and Calm (0) ll1 Disposition Summary: 02/12/24 14:13 Discharge Ordered Notes: Location: Home ec2 Condition: Stable ec2 Diagnosis - Hyperglycemia, unspecified ec2 - Known Humerus Fracture ec2 Followup: ec2 - With: Private Physician - When: - Reason: Re-evaluation by your physician Discharge Instructions: - Discharge Summary Sheet ec2 - Hyperglycemia, [id number] ec2 Forms: - Medication Reconciliation Form ec2 - Antibiotic Education ec2 - Prescription Opioid Use ec2 - Patient Portal Instructions ec2 - Leadership Thank You Letter ec2 Signatures: Dispatcher [employer] Yariel Rapp RN RN ll1 Ricci Chavez MD MD ec2
[2024-02-12 14:15] LABS: Anisocytosis 1+; Blood Morphology Comment NOTED (NOT SEEN); Platelet Estimate ADEQ; White Blood Cell Scan OK (OK)
[2024-02-12 14:16] LABS: Hypochromasia 1+
[2024-02-12 16:01] VITALS: TEMP 97.5; O2SAT 98
[2024-02-12 16:02] VITALS: BP 144/79
== END 2024-02-12 15:26 | disposition home or self-care (01) ==
LOC: ER 13:23
DX: E11.65 Type 2 diabetes mellitus with hyperglycemia (principal); S42.301A Unspecified fracture of shaft of humerus, right arm, initial encounter for closed fracture; I10 Essential (primary) hypertension; J44.9 Chronic obstructive pulmonary disease, unspecified; Z86.73 Personal history of transient ischemic attack (TIA), and cerebral infarction without residual deficits; Z88.8 Allergy status to other drugs, medicaments and biological substances; Z91.041 Radiographic dye allergy status
CPT/HCPCS: 96361; 85025; 80048; 36415; 73060; 96374; 99284; J7030

== ENCOUNTER 2024-07-02 13:08 | Emergency (ER) | payer OTHER ==
[2024-07-02] MEDS ORDERED: ONDANSETRON 4 MG/2 ML VIAL ONE (13:43)
[2024-07-02] MEDS ORDERED: NA CHLORIDE 0.9% 500 ML ONE (13:43)
[2024-07-02] MEDS ORDERED: MORPHINE 4 MG/ML SYR ONE ×2 (13:43→15:25)
[2024-07-02 13:59] LABS: Absolute Basophils 0.1 K/uL (0-0.5); Absolute Eosinophils 0.2 K/uL (0-0.5); Absolute Lymphocytes (CBC) 3.3 K/uL (0.7-4.9); Absolute Monocytes 0.8 K/uL (0.1-1.3); Absolute Neutrophil 5.4 K/uL (1.8-8.0); Eosinophils % 1.7 % (0-4.4); Hematocrit 32.6 % (36.0-45.0); Hemoglobin 9.9 g/dL (12.0-15.0); Lymphocytes % 33.8 % (15.3-44.8); MCH 20.6 pg (27.0-35.0); MCHC 30.4 g/dL (32.0-36.0); MCV 67.9 fL (80-100); MPV 8.7 fL (7.6-11.3); Monocytes % 8.2 % (3.3-12.3); Neutrophils % 55.3 % (41.7-73.7); Nucleated Red Blood Cells % 0.1 % (0-0); Platelets 315 thou/uL (152-406); Red Cell Distribution Width 21.3 % (12.1-15.2)
[2024-07-02 14:15] LABS: Albumin 3.8 g/dL (3.4-5.0); Albumin/Globulin Ratio 0.9 (1.1-1.8); Anion Gap 7.8 mEq/L (5.0-15.0); Bilirubin Total 0.3 mg/dL (0.2-1.0); Globulin 4.1 g/dL (2.3-3.5); Potassium 4.8 mEq/L (3.5-5.1); Protein, Total 7.9 g/dL (6.4-8.2)
--- NOTE | 2024-07-02 14:17 | RAD REPORT ---
EXAM: CT brain without contrast HISTORY: PAIN COMPARISON: None TECHNIQUE: Multiple contiguous axial images were obtained and a CT of the brain without contrast. Sag ittal and coronal reformats were performed. One or more of the following dose reduction techniques were used: Automated exposure control, adjust ment of the mA and/or kV according to patient size, and/or iterative reconstruction. FINDINGS: No evidence of hydrocephalus, intracranial hemorrhage, or extra-axial fluid collection. The brain is normal in morphology. No evidence of midline shift or areas of brain edema. The calvarium is intact. The visualized paranasal sinuses and mastoid air cells are essentially clear . EXAM: CT of the cervical spine without contrast HISTORY: Neck pain, injury PAIN TECHNIQUE: Multiple contiguous axial images were obtained in a CT of the cervical spine without contr ast. Sagittal and coronal reformats were performed. FINDINGS: 3 mm degenerative anterolisthesis C4 on 5 and C5 on 6. No evidence of acute fracture or sub luxation.. Moderate lower cervical spondylosis with disc thinning and posterior osteophyte formation. No prevertebral soft tissue swelling is seen. The lung apices are unremarkable. COMBINED IMPRESSION: No evidence of acute intracranial abnormality. No evidence of acute osseous abnormality of the cervical spine. Moderate mid and lower cervical degenerative changes.
--- NOTE | 2024-07-02 14:46 | RAD REPORT ---
EXAMINATION: XR RIGHT HUMERUS HISTORY: PAIN RIGHT TECHNIQUE: Multiple views of the right humerus performed. COMPARISON: None FINDINGS: There is oblique lucency proximal right humerus probably representing an acute nondisplaced surgical neck fracture. Old traumatic changes are also present.
--- NOTE | 2024-07-02 14:47 | RAD REPORT ---
EXAM: CT CHEST, ABDOMEN AND PELVIS WITHOUT CONTRAST CLINICAL INDICATION: pain TECHNIQUE: CT chest, abdomen and pelvis was performed without contrast, as per department protocol. A xial, sagittal and coronal reconstructions were obtained. One or more of the following dose reduction techniques were used: Automated exposure control, adjustment of the mA and/or kV according to patient size, and/or iterative reconstruction. Unless otherwise specified, incidental findings do not require dedicated imaging follow-up. Examination is limited by the lack of intravenous contrast material. COMPARISON: No prior exam. FINDINGS: LUNGS: No evidence of airspace or interstitial process. No nodules. PLEURA: No pleural effusion. No pneumothorax. MEDIASTINUM AND LYMPH NODES: No mediastinal mass or fluid collection. Normal size mediastinal, hilar, and axillary lymph nodes. OSSEOUS STRUCTURES AND CHEST WALL: Intact. LIVER: Normal in size and contour. No focal lesion or biliary dilatation. Cholecystectomy clips. PANCREAS: No mass, ductal dilation, or naga-pancreatic fluid. SPLEEN: Normal size. No focal lesion. ADRENALS: Normal; no mass. KIDNEYS: Normal size and contour. No hydronephrosis. 3 cm benign cyst right kidney. URINARY BLADDER: Normal contour. GASTROINTESTINAL TRACT: No bowel obstruction, free air, significant free fluid or abscess. Moderate stool is present throughout the colon. Moderate hiatal hernia. APPENDIX: Appendix not visualized, but no inflammatory changes in region of appendix. LYMPH NODES: No lymphadenopathy. MUSCULOSKELETAL: Moderate compression fracture with moderate central canal stenosis, chronic in appea [place] L2. Possible oblique fracture proximal right humerus. IMPRESSION: No acute abnormalities seen in the chest, abdomen or pelvis. Possible oblique fracture proximal right humerus, plain film correlation suggested.
--- NOTE | 2024-07-02 15:49 | EDPHYS ---
Physician Documentation [facility] Name: Kiley Ortega Age: 78 yrs Sex: Female : 1945 Arrival Date: 07/02/2024 Time: 13:08 Bed 7 Private MD: ED Physician Eze Aguilera HPI: 07/02 15:35 This 78 yrs old Female presents to ER via EMS with complaints of Fall Injury, ivan Arm Pain. 15:35 Details of fall: The patient fell from an upright position, while walking. Onset: The ivan symptoms/episode began/occurred just prior to arrival. Associated injuries: The patient sustained injury to the head, neck injury, right arm, contusion, decreased range of motion, hematoma, obvious fracture, painful injury, swelling. Severity of symptoms: At their worst the symptoms were moderate, in the emergency department the symptoms are unchanged. The patient has experienced a previous episode, many years ago. Historical: - Allergies: 13:12 trelegy; kc6 13:12 Tegretol; kc6 13:12 Iodinated Contrast Media - IV Dye; kc6 - PMHx: 13:12 TIA; neuropathy; Myopathy; Kidney stone; Hypertension; Diabetes - NIDDM; COPD; cervical kc6 cancer; breast cancer-right side; - PSHx: 13:12 mastectomy right; Total abdominal hysterectomy; kc6 - Immunization history:: Adult Immunizations up to date. - Infectious Disease History:: Denies. - Social history:: Smoking status: Patient denies any tobacco usage or history of. ROS: 15:43 Constitutional: Negative for fever, chills, and weight loss, Eyes: Negative for injury, ivan pain, redness, and discharge, ENT: Negative for injury, pain, and discharge, Neck: Negative for injury, pain, and swelling, Cardiovascular: Negative for chest pain, palpitations, and edema, Respiratory: Negative for shortness of breath, cough, wheezing, and pleuritic chest pain, Abdomen/GI: Negative for abdominal pain, nausea, vomiting, diarrhea, and constipation, Back: Negative for injury and pain, : Negative for injury, bleeding, discharge, and swelling, Skin: Negative for injury, rash, and discoloration, Psych: Negative for depression, anxiety, suicide ideation, homicidal ideation, and hallucinations, Allergy/Immunology: Negative for hives, rash, and allergies, Endocrine: Negative for neck swelling, polydipsia, polyuria, polyphagia, and marked weight changes, Hematologic/Lymphatic: Negative for swollen nodes, abnormal bleeding, and unusual bruising, 15:43 MS/extremity: Positive for injury or acute deformity, contusion, decreased range of motion, pain, swelling, tenderness, of the right bicep and right tricep, 15:43 Neuro: Positive for dizziness, Exam: 15:43 Constitutional: This is a well developed, well nourished patient who is awake, alert, ivan and in no acute distress. Eyes: Pupils equal round and reactive to light, extra-ocular motions intact. Lids and lashes normal. Conjunctiva and sclera are non-icteric and not injected. Cornea within normal limits. Periorbital areas with no swelling, redness, or edema. ENT: Nares patent. No nasal discharge, no septal abnormalities noted. Tympanic membranes are normal and external auditory canals are clear. Oropharynx with no redness, swelling, or masses, exudates, or evidence of obstruction, uvula midline. Mucous membranes moist. Neck: Trachea midline, no thyromegaly or masses palpated, and no cervical lymphadenopathy. Supple, full range of motion without nuchal rigidity, or vertebral point tenderness. No Meningismus. Chest/axilla: Normal chest wall appearance and motion. Nontender with no deformity. No lesions are appreciated. Cardiovascular: Regular rate and rhythm with a normal S1 and S2. No gallops, murmurs, or rubs. Normal PMI, no JVD. No pulse deficits. Respiratory: Lungs have equal breath sounds bilaterally, clear to auscultation and percussion. No rales, rhonchi or wheezes noted. No increased work of breathing, no retractions or nasal flaring. Back: No spinal tenderness. No costovertebral tenderness. Full range of motion. Female : Normal external genitalia. Skin: Warm, dry with normal turgor. Normal color with no rashes, no lesions, and no evidence of cellulitis. Psych: Awake, alert, with orientation to person, place and time. Behavior, mood, and affect are within normal limits. 15:43 Head/face: Noted is contusion, hematoma, that is mild, that is moderate, 15:43 Musculoskeletal/extremity: ROM: limited active range of motion due to pain, limited passive range of motion due to pain, Circulation is intact in all extremities. Tingling of extremity. Compartment Syndrome exam of affected extremity: is normal. Weight bearing: is unable to bear weight, DVT Exam: no pain, no swelling, no tenderness, negative Homans' sign noted on exam, no appreciated bluish discoloration, no erythema, no increased warmth, 15:43 Neuro: Orientation: is normal, appropriate for stated age, no acute changes, Mentation: is normal, appropriate for stated age, no acute changes, Memory: is normal, appropriate for stated age, no acute changes, Cranial nerves: grossly normal, is grossly normal based on the patient's age, no acute changes, Cerebellar function: is grossly normal, Motor: moves all fours, Sensation: is normal, Gait: not tested. seizure activity, is not displayed by the patient, Vital Signs: 13:10 BP 140 / 51; Pulse 64; Resp 16 S; Temp 97.8(O); Pulse Ox 99% on R/A; Weight 89.36 kg kc6 (R); Height 5 ft. 2 in. (R); Pain 10/10; 14:42 BP 137 / 62; Pulse 64; Resp 16 S; Pulse Ox 98% on R/A; kc6 15:51 BP 108 / 77; Pulse 66; Resp 16; Pulse Ox 96% on R/A; iw 13:10 Body Mass Index 36.03 (89.36 kg, 157.48 cm) kc6 13:10 Pain Scale: Adult kc6 MDM: 13:11 Medical Screening Exam initiated ivan 15:46 Differential diagnosis: intra-abdominal injury, closed head injury, cardiac contusion, ivan extremity fracture, C spine fracture, T spine fracture, L spine fracture, closed fracture, contusion, tendonitis. Data reviewed: vital signs, nurses notes, EMS record, lab test result(s), radiologic studies, CT scan, plain films. Consideration of Admission/Observation Escalation of care including admission/observation considered. I considered the following discharge prescriptions or medication management in the emergency department Medications were administered in the Emergency Department. See MAR. Independent interpretation of the following test(s) in the Emergency Department X-Ray: My interpretation is right humerus. Test considered but Not performed: Ultrasound no FAST. Care significantly affected by the following chronic conditions: Diabetes, Hypertension, Obesity, TIA, MYOPATHY, COPD. 07/02 13:33 Order name: CBC with Diff ivan 07/02 13:33 Order name: CMP; Complete Time: 15:30 ivan 07/02 14:11 Order name: CBC Smear Scan EDMS 07/02 13:33 Order name: Humerus Right XRAY; Complete Time: 15:30 ivan 07/02 13:45 Order name: Head C Spine Mpr Wo Con; Complete Time: 15:30 EDMS 07/02 13:46 Order name: Chest Abd Pelvis Wo Con; Complete Time: 15:30 EDMS 07/02 16:12 Order name: Splint; Complete Time: 16:21 ivan Administered Medications: 13:50 Drug: NS 0.9% IV 500 ml 500 ml IV at 1 bolus once; to be given as a bolus over 30 kc6 minutes Volume: 500 ml; Route: IV; Rate: 1 bolus; Site: left forearm; 14:43 Follow up: Response: No adverse reaction; IV Status: Completed infusion; IV Intake: kc6 500ml 13:50 Drug: morphine IVP or IV 4 mg IVP once over 4 mins Route: IVP; Infused Over: 4 mins; kc6 Site: left forearm; 14:43 Follow up: Response: No adverse reaction; Pain is decreased; RASS: Alert and Calm (0) kc6 13:50 Drug: Ondansetron IVP 4 mg IVP once; over 2 minutes Route: IVP; Site: left forearm; kc6 14:43 Follow up: Response: No adverse reaction kc6 15:30 Drug: morphine IVP or IV 4 mg IVP once over 4 mins Route: IVP; Infused Over: 4 mins; kc6 Site: left forearm; 16:15 Follow up: Response: No adverse reaction; Pain is unchanged, physician notified kc6 16:18 Drug: HYDROmorphone IVP 0.5 mg IVP once Route: IVP; Site: left forearm; kc6 16:21 Follow up: Response: No adverse reaction aa5 Disposition Summary: 07/02/24 15:49 Transfer Ordered Notes: Transfer Location: [facility] ivan Reason: Higher level of care ivan Condition: Fair ivan Problem: new ivan Symptoms: have improved ivan Accepting Physician: NANCY ONEILL(07/02/24 16:27) aa5 Diagnosis - Fall on same level, unspecified ivan - Unspecified injury of head, initial encounter ivan - Nausea ivan - manager long term care (current) use of anticoagulants ivan - Fracture of upper end of humerus - DISPLACED, LARGE HEMATOMA ivan - Anemia, unspecified ivan Discharge Instructions: - Discharge Summary Sheet iw Forms: - Medication Reconciliation Form ivan - SBAR form iw Signatures: Dispatcher [employer] EDMS Eze Aguilera MD MD cha Calderon, Audri, RN RN aa5 Loretta Rose RN RN kc6 Corrections: (The following items were deleted from the chart) 13:33 13:33 CBC+H.LAB.BRZ ordered. EDMS EDMS 13:33 13:33 COMPREHENSIVE METABOLIC PANEL+C.LAB.BRZ ordered. EDMS EDMS 13:33 13:33 Humerus Right+RAD.RAD.BRZ ordered. EDMS EDMS 13:33 13:33 Head C Spine Cap Wo Con+CT.RAD.BRZ ordered. EDMS EDMS 15:49 15:49 TO MAI love ivan 16:27 15:49 TO MAI love aa5
--- NOTE | 2024-07-02 15:49 | ER ---
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 pt reports kcRamon tripping and falling onto her right side. (-) LOC, (+) Plavix. pt reports right arm/shoulder pain 11/19. Coronavirus screen: At this time, the client does not indicate any symptoms associated with coronavirus-19. Ebola Screen: No symptoms or risks identified at this time. Initial Sepsis Screen: Does the patient meet any 2 criteria? No. Patient's initial sepsis screen is negative. Does the patient have a suspected source of infection? No. Patient's initial sepsis screen is negative. Risk Assessment: Do you want to hurt yourself or someone else? Patient reports no desire to harm self or others. Onset of symptoms was July 02, 2024. 13:10 Method Of Arrival: EMS: [facility] kc6 13:10 Acuity: SHELLEY 3 kc6 13:10 Care prior to arrival: Glucose check: 122. kc6 Historical: - Allergies: 13:12 trelegy; kc6 13:12 Tegretol; kc6 13:12 Iodinated Contrast Media - IV Dye; kc6 - PMHx: 13:12 TIA; neuropathy; Myopathy; Kidney stone; Hypertension; Diabetes - NIDDM; COPD; cervical kc6 cancer; breast cancer-right side; - PSHx: 13:12 mastectomy right; Total abdominal hysterectomy; kc6 - Immunization history:: Adult Immunizations up to date. - Infectious Disease History:: Denies. - Social history:: Smoking status: Patient denies any tobacco usage or history of. Screenin:13 [facility] ED Fall Risk Assessment (Adult) History of falling in the last 3 months, kc6 including since admission Yes- single mechanical fall (1 pt) Confusion or Disorientation No (0 pts) Intoxicated or Sedated No (0 pts) Impaired Gait No (0 pts) Mobility Assist Device Used No (0 pt) Altered Elimination No (0 pt) Score/Fall Risk Level 0 - 2 = Low Risk Oriented to surroundings. Abuse screen: Denies threats or abuse. Denies injuries from another. Nutritional screening: No deficits noted. Tuberculosis screening: No symptoms or risk factors identified. Assessment: 13:14 General: Appears in no apparent distress. uncomfortable, well groomed, well developed, kc6 Behavior is calm, cooperative, appropriate for age. Pain: Complains of pain in right bicep Pain does not radiate. Pain currently is 10 out of 10 on a pain scale. Pain began suddenly, Is continuous, Alleviated by medications, rest, Aggravated by increased activity, repositioning, Noted to be moaning, resistant to movement. Neuro: Level of Consciousness is awake, alert, obeys commands, Oriented to person, place, time, situation, Appropriate for age. Cardiovascular: Capillary refill < 3 seconds. Respiratory: Airway is patent Trachea midline Respiratory effort is even, unlabored, Respiratory pattern is regular, symmetrical. GI: No signs and/or symptoms were reported involving the gastrointestinal system. : No signs and/or symptoms were reported regarding the genitourinary system. EENT: No signs and/or symptoms were reported regarding the EENT system. Derm: No signs and/or symptoms reported regarding the dermatologic system. Skin is intact, is fragile, is thin, with poor turgor Skin is dry, Skin is pale, Skin temperature is warm. Musculoskeletal: Range of motion: limited in right arm Swelling present in right bicep. 14:42 Reassessment: Patient appears in no apparent distress at this time. No changes from kc6 previously documented assessment. Patient and/or family updated on plan of care and expected duration. Pain level reassessed. Patient is alert, oriented x 3, equal unlabored respirations, skin warm/dry/pink. 15:50 Reassessment: report given to YUNIOR Olmos at [facility] Vital Signs: 13:10 BP 140 / 51; Pulse 64; Resp 16 S; Temp 97.8(O); Pulse Ox 99% on R/A; Weight 89.36 kg kc6 (R); Height 5 ft. 2 in. (R); Pain 10/10; 14:42 BP 137 / 62; Pulse 64; Resp 16 S; Pulse Ox 98% on R/A; kc6 15:51 BP 108 / 77; Pulse 66; Resp 16; Pulse Ox 96% on R/A; iw 13:10 Body Mass Index 36.03 (89.36 kg, 157.48 cm) kc6 13:10 Pain Scale: Adult kc6 ED Course: 13:10 Patient arrived in ED. kc6 13:11 Eze Aguilera MD is Attending Physician. [facility] 13:12 Triage completed. kc6 13:12 Arm band placed on. kc6 13:13 Patient has correct armband on for positive identification. Bed in low position. Call kc6 light in reach. Side rails up X2. Pulse ox on. NIBP on. Door closed. Noise minimized. Lights dimmed. Pillow given. Verbal reassurance given. 13:13 Patient maintains SpO2 saturation greater than 95% on room air. kc6 13:40 Loretta Rose RN is Primary Nurse. kc6 13:41 Initial lab(s) drawn, by fl, sent to lab. Inserted saline lock: 20 gauge in left kc6 forearm, using aseptic technique. Blood collected. Flushed with 10 mL NS. 13:[address] via stretcher. kc6 14:02 Head C Spine Mpr Wo Con In Process Unspecified. EDMS 14:06 Chest Abd Pelvis Wo Con In Process Unspecified. EDMS 14:34 Humerus Right XRAY In Process Unspecified. EDMS 15:30 Patient requests pain medication. kc6 15:[address] Aguilera with Neal from the [facility]/.eb 15:30 administrative approval given to Dr. Aguilera by Neal Nieves Rn TC/ patient has been eb accepted to [facility] ED/ Dr. Mark Bowers has accepted the patient in transfer without consultation with Dr. Aguilera/ report to be called to [phone]. Administered Medications: 13:50 Drug: NS 0.9% IV 500 ml 500 ml IV at 1 bolus once; to be given as a bolus over 30 kc6 minutes Volume: 500 ml; Route: IV; Rate: 1 bolus; Site: left forearm; 14:43 Follow up: Response: No adverse reaction; IV Status: Completed infusion; IV Intake: kc6 500ml 13:50 Drug: morphine IVP or IV 4 mg IVP once over 4 mins Route: IVP; Infused Over: 4 mins; kc6 Site: left forearm; 14:43 Follow up: Response: No adverse reaction; Pain is decreased; RASS: Alert and Calm (0) kc6 13:50 Drug: Ondansetron IVP 4 mg IVP once; over 2 minutes Route: IVP; Site: left forearm; kc6 14:43 Follow up: Response: No adverse reaction kc6 15:30 Drug: morphine IVP or IV 4 mg IVP once over 4 mins Route: IVP; Infused Over: 4 mins; kc6 Site: left forearm; 16:15 Follow up: Response: No adverse reaction; Pain is unchanged, physician notified kc6 16:18 Drug: HYDROmorphone IVP 0.5 mg IVP once Route: IVP; Site: left forearm; kc6 16:21 Follow up: Response: No adverse reaction aa5 Intake: 14:43 IV: 500ml; Total: 500ml. kc6 Outcome: 15:49 ER care complete, transfer ordered by MD. love 16:27 Patient left the ED. aa5 Signatures: Dispatcher [employer] Eze Dueñas MD MD cha Williams, Irene, RN RN iw Calderon, Audri, RN RN aa5 Margaret Huber Kaitlyn, RN RN kc6
[2024-07-02 16:02] LABS: White Blood Cell Scan OK (OK)
[2024-07-02 16:11] LABS: Anisocytosis 1+; Blood Morphology Comment NOTED (NOT SEEN); Hypochromasia 1+; Microcytosis 1+; Platelet Estimate ADEQ
[2024-07-02] MEDS ORDERED: HYDROMORPHONE HCL 0.5 MG/0.5 ML INJ ONE (16:17)
[2024-07-02 16:55] VITALS: TEMP 97.8
[2024-07-02 16:57] VITALS: BP 108/77; O2SAT 96
== END 2024-07-02 16:27 | disposition short-term general hospital (02) ==
LOC: ER 13:08
PROC: 2W3AX1Z Immobilization of Right Upper Arm using Splint (ICD-10-PCS; principal; 2024-07-02)
DX: S42.201A Unspecified fracture of upper end of right humerus, initial encounter for closed fracture (principal); S09.90XA Unspecified injury of head, initial encounter; D64.9 Anemia, unspecified; R11.0 Nausea; W18.30XA Fall on same level, unspecified, initial encounter; E11.9 Type 2 diabetes mellitus without complications; I10 Essential (primary) hypertension
CPT/HCPCS: 96361; 85025; 36415; 80053; 70450; 71250; 72125; 74176; 73060; 96375; 96374; 99285; 29105; J1171; J2405; J7040